=== PATIENT | female | born 1955 | race Caucasian/White ===

== ENCOUNTER 2016-11-23 12:22 | Emergency (ER) | payer MEDICARE ==
[2016-11-23] MEDS ORDERED: PROVENTIL 2.5 MG/3 ML NEB IH ONE (12:53)
[2016-11-23] MEDS ORDERED: solu-MEDROL 125 MG IV ONE (12:56)
[2016-11-23] MEDS ORDERED: Levofloxacin 500MG/100ML D5W 100 ML IV ONE ×2 (12:56→13:29)
[2016-11-23] MEDS ORDERED: Sodium Chloride 3 ML UD NEBULES IH ONE (12:57)
[2016-11-23] MEDS ORDERED: PROVENTIL Solution 2.5 MG/0.5 ML IH ONE (12:57)
[2016-11-23] MEDS ORDERED: Sodium Chloride 0.9% 1000 ML 1,000 ML IV SCH (13:00)
--- NOTE | 2016-11-23 13:27 | XRAY ---
Indication: Cough and dyspnea. Comparison: March 05, 2014. Portable chest demonstrates stable scattered calcific granulomas and left base discoid atelectasis/scarring. Remaining heart, lungs, and bony thorax normal.
[2016-11-23] MEDS ORDERED: solu-MEDROL 125 MG ONE (13:29)
[2016-11-23] MEDS ORDERED: Sodium Chloride 0.9% 1000 ML 1,000 ML ONE (13:29)
[2016-11-23 13:46] LABS: BASOPHIL % 0.2 % (0.0-0.4); Eosinophil % 2.2 % (0.00-5.0); Granulocytes % 64.3 % (36.0-66.0); Lymphocytes % 26.4 % (24.0-44.0); Mean Cell Volume 90.4 fl (78-100); Mean Corpuscular Hemoglobin 29.8 pg (26-32); Mean Platelet Volume 11.1 fl (6-9.5); Monocytes % 6.9 % (0.0-12.0); Platelet Count 249 K/mm3 (150-450); Red Cell Distribution Width 15.3 % (11.5-14.0); White Blood Count 8.8 K/mm3 (4.0-10.5)
[2016-11-23 14:16] LABS: ANION GAP 14.5 MEQ/L (5-15); BLOOD UREA NITROGEN 24 mg/dL (9-20); CHLORIDE 105 mEq/L (98-107); Carbon Dioxide 25.3 mEq/L (21-32); Glucose 112 MG/DL (70-110); MAGNESIUM 2.1 mg/dL (1.8-2.4); Potassium 3.2 mEq/L (3.5-5.1); SODIUM 142 mEq/L (136-145)
[2016-11-23 14:25] LABS: TROPONIN < 0.017 ng/ml (0.000-0.056)
--- NOTE | 2016-11-23 15:38 | ERPHSYRPT ---
- History of Present Illness Time Seen by Provider: 11/23/16 13:30 Source: patient Exam Limitations: clinical condition Patient Subjective Stated Complaint: PT REPORTS SUBSTERNAL CHEST PAIN-SOB BEGINNING ANDRES 1 HR AGO-REPORTS LIGHTHEADEDNESS-DENIES N/V/D-REPORTS SIMILAR EPISODES-REPORTS RECENT PRODUCTIVE COUGH SPUTUM BETWEEN YELLOW ET WHITE Triage Nursing Assessment: PT PINK WARM ET [id number] TALKATIVE WITH RESP NONLABORED-SPEAKING IN BACK TO BACK COMPLETE SENTENCES WITH NO RETRACTIONS-NO COUGH NOTED DURING TRIAGE-RADIAL PULSE REGULAR Physician History: PATIENT COMPLAINS OF PRODUCTIVE COUGH, SUBSTERNAL CHEST TIGHTNESS 2-3 HOURS PRIOR TO ARRIVAL. DENIES FEVER OR CHILLS. HAS PAIN UPON INSPIRATION OR MOTION OF TORSO. Timing/Duration: today Severity of Dyspnea-Max: moderate Severity of Dyspnea-Current: moderate Possible Cause: occasional episodes Modifying Factors: Improves With: coughing Associated Symptoms: cough, wheezing, dizziness, productive cough, tightness International travel in last 2 weeks: No Allergies/Adverse Reactions: codeine Allergy (Intermediate, Verified 11/23/16 12:37) rash, itching cefaclor [From Ceclor] Allergy (Mild, Verified 11/23/16 12:37) Rash Penicillins Allergy (Mild, Verified 11/23/16 12:37) Swelling bacitracin [From Neosporin ([id number])] Allergy (Verified 11/23/16 12:37) bacitracin zinc [From Neosporin ([id number])] Allergy (Verified 11/23/16 12: 37) neomycin sulfate [From Neosporin ([id number])] Allergy (Verified 11/23/16 12: 37) polymyxin B [From Neosporin ([id number])] Allergy (Verified 11/23/16 12:37) Home Medications: Bupropion HCl 150 mg Sr [Wellbutrin SR 150 MG] 150 mg PO BID 03/05/14 [ History] Ropinirole HCl [Requip] 1 mg PO TID 03/05/14 [History] Alprazolam 0.25 mg [xanAX 0.25 MG] 0.25 mg PO TID 11/23/16 [History] Diclofenac Sodium 50 mg [Voltaren 50 mg] 50 mg PO BID 11/23/16 [History] Famotidine [Pepcid] 40 mg PO HS 11/23/16 [History] Hydrochlorothiazide 25 mg [hydroDIURIL 25 MG] 25 mg PO DAILY 11/23/16 [ History] Mirtazapine [Remeron] 15 mg PO HS 11/23/16 [History] Naproxen [Naprosyn] 500 mg PO BID 11/23/16 [History] Zolpidem Tartrate [Ambien] 5 mg PO HS 11/23/16 [History] Hx Tetanus, Diphtheria Vaccination/Date Given: No Hx Influenza Vaccination/Date Given: No Hx Pneumococcal Vaccination/Date Given: No Immunizations Up to Date: Yes - Review of Systems Constitutional: No Symptoms, No Fever, No Chills Eyes: No Symptoms Ears, Nose, & Throat: No Symptoms Respiratory: Cough, Dyspnea Cardiac: Chest Pain, No Edema, No Syncope Abdominal/Gastrointestinal: No Symptoms, No Abdominal Pain, No Nausea, No Vomiting, No Diarrhea Genitourinary Symptoms: No Symptoms, No Dysuria Musculoskeletal: No Symptoms, No Back Pain, No Neck Pain Skin: No Symptoms, No Rash Neurological: No Dizziness, No Focal Weakness, No Sensory Changes Psychological: No Symptoms Endocrine: No Symptoms All Other Systems: Reviewed and Negative - Past Medical History Pertinent Past Medical History: Yes Neurological History: No Pertinent History ENT History: No Pertinent History Cardiac History: No Pertinent History Respiratory History: COPD, Emphysema Endocrine Medical History: No Pertinent History Musculoskeletal History: Arthritis, Fibromyalgia GI Medical History: No Pertinent History History: No Pertinent History Psycho-Social History: No Pertinent History Female Reproductive Disorders: No Pertinent History - Past Surgical History Past Surgical History: Yes Neuro Surgical History: No Pertinent History Cardiac: No Pertinent History Respiratory: No Pertinent History Gastrointestinal: Cholecystectomy Genitourinary: No Pertinent History Musculoskeletal: No Pertinent History Female Surgical History: No Pertinent History, Tubal Ligation - Social History Smoking Status: Current every day smoker How long have you smoked: YRS Exposure to second hand smoke: Yes Drug Use: none Patient Lives Alone: No - Nursing Vital Signs Nursing Vital Signs: Initial Vital Signs Temperature 98.3 F Temperature Source Oral Pulse Rate 101 Respiratory Rate 16 Blood Pressure [Right Arm] 142/57 Pain Intensity 8 - Physical Exam General Appearance: no apparent distress, alert, other (NO DISTRESS, NO AUDIBLE WHEEZES) Eye Exam: PERRL/EOMI Ears, Nose, Throat Exam: hearing grossly normal Neck Exam: normal inspection, supple Respiratory Exam: chest tenderness, diminished breath sounds, wheezing Cardiovascular/Chest Exam: normal heart sounds, regular rate/rhythm Abdominal/Gastrointestinal Exam: soft, normal bowel sounds, No tenderness, No distention, No mass Extremity Exam: non-tender, normal range of motion, normal inspection, no calf tenderness, no pedal edema Peripheral Pulses Exam: carotid (R): 2+, carotid (L): 2+, femoral (R): 2+, femoral (L): 2+, dorsalis-pedis (R): 2+, dorsalis-pedis (L): 2+ Neurologic Exam: alert, 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, cooperative, spinning frame tender II-XII nml as tested, sensation nml, No motor deficits Skin Exam: normal color, warm, No dry SpO2 Interpretation: normal SpO2: 92 Oxygen Delivery: Room Air - Radiology Exams Chest X-ray Interpretation: Interpreted by me, Negative Ordered Tests: Active Orders 24 hr Category Date Time Status Linux Programmer STAT Care 11/23/16 12:53 Active EKG-ER Only STAT Care 11/23/16 12:53 Active IV Insertion STAT Care 11/23/16 12:53 Active Oxygen-ED Only NASAL CANNULA 2 lpm Care 11/23/16 12:53 Active CHEST 1 VIEW (PORTABLE) Stat Exams 11/23/16 12:54 Completed BLOOD CULTURE Stat Lab 11/23/16 13:24 Received BMP Stat Lab 11/23/16 13:35 Completed CBC W DIFF Stat Lab 11/23/16 13:35 Completed CULTURE,SPUTUM Stat Lab 11/23/16 15:26 Received MAGNESIUM Stat Lab 11/23/16 13:35 Completed TROPONIN Stat Lab 11/23/16 13:35 Completed Respiratory Nebulizer STAT RT 11/23/16 12:55 Completed Medication Summary Generic Name Dose Route Start Last Admin Trade Name Freq PRN Reason Stop Dose Admin Sodium Chloride 1,000 mls @ 500 mls/hr 11/23/16 13:00 11/23/16 13:33 Sodium Chloride 0.9% 1000 Ml IV 12/23/16 12:59 500 mls/hr .Q2H FABRICIO Administration Discontinued Medications Generic Name Dose Route Start Last Admin Trade Name Freq PRN Reason Stop Dose Admin Albuterol Sulfate 10 mg 11/23/16 12:53 11/23/16 13:05 Proventil 2.5 Mg/3 Ml Neb IH 11/23/16 12:54 10 mg STAT ONE Administration Albuterol Sulfate Confirm 11/23/16 12:57 Proventil Solution 2.5 Mg/0.5 Ml Administered 11/23/16 12:58 Dose 10 mg IH .STK-MED ONE Levofloxacin/Dextrose 100 mls @ 100 mls/hr 11/23/16 12:56 11/23/16 13:33 Levofloxacin 500mg/100ml D5w IV 11/23/16 13:55 100 mls/hr STAT ONE Administration Sodium Chloride Confirm 11/23/16 13:29 Sodium Chloride 0.9% 1000 Ml Administered 11/23/16 13:30 Dose 1,000 mls @ ud .ROUTE .STK-MED ONE Levofloxacin/Dextrose Confirm 11/23/16 13:29 Levofloxacin 500mg/100ml D5w Administered 11/23/16 13:30 Dose 100 mls @ ud IV .STK-MED ONE Methylprednisolone Sodium Succinate 125 mg 11/23/16 12:56 11/23/16 13:32 Solu-Medrol 125 Mg IV 11/23/16 12:57 125 mg STAT ONE Administration Methylprednisolone Sodium Succinate Confirm 11/23/16 13:29 Solu-Medrol 125 Mg Administered 11/23/16 13:30 Dose 125 mg .ROUTE .STK-MED ONE Sodium Chloride Confirm 11/23/16 12:57 Sodium Chloride 3 Ml Ud Nebules Administered 11/23/16 12:58 Dose 3 ml IH .STK-MED ONE Lab/Rad Data: Laboratory Result Diagrams 11/23/16 13:35 11/23/16 13:35 Laboratory Results 11/23/16 11/23/16 11/23/16 Range/Units 13:35 13:35 13:35 WBC 8.8 (4.0-10.5) K/mm3 RBC 5.40 (4.1-5.4) M/mm3 Hgb 16.1 H (12.0-16.0) gm/dl Hct 48.8 H (35-47) % MCV 90.4 (78-100) fl MCH 29.8 (26-32) pg MCHC 33.0 (32-36) g/dl RDW 15.3 H (11.5-14.0) % Plt Count 249 (150-450) K/mm3 MPV 11.1 H (6-9.5) fl Gran % 64.3 (36.0-66.0) % Lymphocytes % 26.4 (24.0-44.0) % Monocytes % 6.9 (0.0-12.0) % Eosinophils % 2.2 (0.00-5.0) % Basophils % 0.2 (0.0-0.4) % Basophils # 0.02 (0-0.4) Sodium 142 (136-145) mEq/L Potassium 3.2 L (3.5-5.1) mEq/L Chloride 105 (98-107) mEq/L Carbon Dioxide 25.3 (21-32) mEq/L Anion Gap 14.5 (5-15) MEQ/L BUN 24 H (9-20) mg/dL Creatinine 1.02 (0.55-1.30) mg/dl Estimated GFR 59 ML/MIN Glucose 112 H (70-110) MG/DL Calcium 9.2 (8.5-10.1) mg/dL Magnesium 2.1 (1.8-2.4) mg/dL Troponin I < 0.017 (0.000-0.056) ng/ml Influenza Type A Ag NEGATIVE (NEGATIVE) Influenza Type B Ag NEGATIVE (NEGATIVE) RSV (PCR) NEGATIVE (Negative) - Progress Progress: improved Progress Note: 11/23/16 15:37 PATIENT GIVEN CONTINUOUS ALBUTEROL NEBULIZER 10MG OVER 1 HOUR, LEVAQUIN 500MG IVPB, SOLUMEDROL 125MG IV Blood Culture(s) Obtained: Yes Antibiotics given: Yes (LEVAQUIN 500 MG IVPB) Counseled pt/family regarding: lab results, diagnosis, need for follow-up, rad results - Departure Time of Disposition: 15:50 Departure Disposition: Home Clinical Impression: ACUTE EXACERBATION COPD Condition: Stable Critical Care Time: No Additional Instructions: ANTIBIOTIC LEVAQUIN 500MG DAILY FOR 10 DAYS. PREDNISONE 20MG, 2 TABLETS DAILY FOR 5 DAYS. CONTINUE ALBUTEROL AEROSOL TREATMENTS EVERY 3-4 HOURS NEEDED. FOLLOWUP WITH YOUR FAMILY PHYSICIAN IN 1 WEEK. Prescriptions: Levofloxacin [Levaquin] 500 mg PO DAILY #10 tablet Prednisone 20 mg [Deltasone 20 mg] 2 tab PO DAILY #10 tablet
[2016-11-23 16:05] VITALS: BP 117/61; PULSE 87; O2SAT 95
== END 2016-11-23 16:10 | disposition home or self-care (01) ==
LOC: ED 12:22
DX: J44.1 Chronic obstructive pulmonary disease with (acute) exacerbation (principal); R07.89 Other chest pain; R42 Dizziness and giddiness; R05 Cough; Z79.899 Other long term (current) drug therapy
CPT/HCPCS: 36000; 36415; 71010; 80048; 83735; 84484; 85025; 87040; 87070; 87631; 93005; 93041; 94640; 96360; 96361; 96365; 96374; 99285; J1956; J2930

== ENCOUNTER 2018-04-29 22:44 | Emergency (ER) | payer MEDICARE ==
[2018-04-29] MEDS ORDERED: DUONEB 0.5-3 MG/3 ml Neb IH ONE ×2 (23:22→23:29)
[2018-04-29] MEDS ORDERED: Levofloxacin 500MG/100ML D5W 500 MG/100 ML BAG IV STA (23:22)
[2018-04-29] MEDS ORDERED: solu-MEDROL 125 MG IV ONE (23:22)
[2018-04-29] MEDS ORDERED: TORAdol 30 mg Injection IV ONE (23:25)
[2018-04-29] MEDS ORDERED: Sodium Chloride 0.9% 1000 ML 1,000 ML IV SCH (23:30)
--- NOTE | 2018-04-29 23:31 | ERPHSYRPT ---
- History of Present Illness Time Seen by Provider: 04/29/18 23:10 Source: patient Exam Limitations: clinical condition Patient Subjective Stated Complaint: pain over entire body Triage Nursing Assessment: Pt c/o of generalized pain all over, hx of fibromyalgia, rates pain 10/10, face is flushed, tachycardic, BP 146/75, hands are shaky, pulses strong, pt appears uncomfortable Physician History: PATIENT WITH A HISTORY OF COPD, FIBROMYALGIA, AND DEGENERATIVE ARTHRITIS COMPLAINS OF GENERALIZED PAIN ALL OVER, ASSOCIATED WITH A PRODUCTIVE COUGH WHITE SPUTUM. DENIES FEVER, CHEST PAIN OR DYSPNEA. Timing/Duration: day(s) Severity: moderate Modifying Factors: Improves With: movement Associated Symptoms: other (PRODUCTIVE COUGH) Allergies/Adverse Reactions: codeine Allergy (Intermediate, Verified 04/29/18 23:07) rash, itching cefaclor [From Ceclor] Allergy (Mild, Verified 04/29/18 23:07) Rash Penicillins Allergy (Mild, Verified 04/29/18 23:07) Swelling bacitracin [From Neosporin ([id number])] Allergy (Verified 04/29/18 23:07) bacitracin zinc [From Neosporin ([id number]-enl-[id number])] Allergy (Verified 04/29/18 23: 07) neomycin sulfate [From Neosporin ([id number])] Allergy (Verified 04/29/18 23: 07) polymyxin B [From Neosporin ([id number])] Allergy (Verified 04/29/18 23:07) Home Medications: Bupropion HCl 150 mg Sr [Wellbutrin SR 150 MG] 150 mg PO BID 03/05/14 [ History] Ropinirole HCl [Requip] 1 mg PO TID 03/05/14 [History] Alprazolam 0.25 mg [xanAX 0.25 MG] 0.25 mg PO TID 11/23/16 [History] Famotidine [Pepcid] 40 mg PO HS 11/23/16 [History] Mirtazapine [Remeron] 15 mg PO HS 11/23/16 [History] Naproxen [Naprosyn] 500 mg PO BID 11/23/16 [History] Zolpidem Tartrate [Ambien] 5 mg PO HS 11/23/16 [History] Budesonide/Formoterol Fumarate [Symbicort 160-4.5 Mcg Inhaler] 1 inh PO UD 04/29 [History] Tiotropium [place] [Spiriva Respimat] 1 inh PO UD 04/29/18 [History] Hx Tetanus, Diphtheria Vaccination/Date Given: No Hx Influenza Vaccination/Date Given: No Hx Pneumococcal Vaccination/Date Given: No - Review of Systems Constitutional: No Fever, No Chills Eyes: No Symptoms Ears, Nose, & Throat: No Symptoms Respiratory: Cough, No Dyspnea Cardiac: No Symptoms, No Chest Pain, No Edema, No Syncope Abdominal/Gastrointestinal: No Symptoms, No Abdominal Pain, No Nausea, No Vomiting, No Diarrhea Genitourinary Symptoms: No Symptoms, No Dysuria Musculoskeletal: No Back Pain, No Neck Pain Skin: No Rash Neurological: No Dizziness, No Focal Weakness, No Sensory Changes Psychological: No Symptoms Endocrine: No Symptoms All Other Systems: Reviewed and Negative - Past Medical History Pertinent Past Medical History: Yes Neurological History: No Pertinent History ENT History: No Pertinent History Cardiac History: No Pertinent History Respiratory History: COPD, Emphysema Endocrine Medical History: No Pertinent History Musculoskeletal History: Arthritis, Fibromyalgia GI Medical History: No Pertinent History History: No Pertinent History Psycho-Social History: No Pertinent History Female Reproductive Disorders: No Pertinent History - Past Surgical History Past Surgical History: Yes Neuro Surgical History: No Pertinent History Cardiac: No Pertinent History Respiratory: No Pertinent History Gastrointestinal: Cholecystectomy Genitourinary: No Pertinent History Musculoskeletal: No Pertinent History Female Surgical History: No Pertinent History, Tubal Ligation - Social History Smoking Status: Current every day smoker How long have you smoked: YRS Exposure to second hand smoke: Yes Drug Use: none Patient Lives Alone: No - Female History Hx Now: No - Nursing Vital Signs Nursing Vital Signs: Initial Vital Signs Temperature 98.4 F 04/29/18 22:54 Pulse Rate 107 H 04/29/18 22:54 Blood Pressure 146/75 04/29/18 22:54 O2 Sat by Pulse Oximetry 93 L 04/29/18 22:54 Pain Scale Pain Intensity 10 - Physical Exam General Appearance: no apparent distress, alert Eye Exam: PERRL/EOMI, eyes nml inspection Ears, Nose, Throat Exam: normal ENT inspection, TMs normal, pharynx normal, moist mucous membranes Neck Exam: normal inspection, non-tender, supple, full range of motion Respiratory Exam: diminished breath sounds (NO WHEEZES OR RHONCHI), No respiratory distress Cardiovascular Exam: regular rate/rhythm, normal heart sounds, normal peripheral pulses Gastrointestinal/Abdomen Exam: soft, normal bowel sounds, No tenderness, No mass Back Exam: normal inspection, normal range of motion, No CVA tenderness, No vertebral tenderness Extremity Exam: normal inspection, normal range of motion, pelvis stable Neurologic Exam: alert, 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, cooperative, normal mood/affect, nml cerebellar function, nml station & gait, sensation nml, No motor deficits Skin Exam: normal color, warm, dry, No rash Lymphatic Exam: No adenopathy SpO2 Interpretation: borderline oxygenation SpO2: 93 Oxygen Delivery: Room Air Ordered Tests: Active Orders 24 hr Category Date Time Status Clean Catch Urine Specimen STAT Care 04/29/18 23:22 Active IV Insertion STAT Care 04/29/18 23:22 Active CHEST 2 VIEWS (PA AND LAT) Stat Exams 04/29/18 23:23 Taken UA W/RFX UR CULTURE Stat Lab 04/29/18 23:23 Uncollected Peak Expiratory Flow Rate ONCE RT 04/29/18 23:27 Active Respiratory Nebulizer STAT RT 04/29/18 23:24 Completed Respiratory Therapy Assessment DAILY RT 04/29/18 23:27 Active Medication Summary Generic Name Dose Route Start Last Admin Trade Name Freq PRN Reason Stop Dose Admin Sodium Chloride 1,000 mls @ 250 mls/hr 04/29/18 23:30 04/29/18 23:40 Sodium Chloride 0.9% 1000 Ml IV 05/29/18 23:29 250 mls/hr .Q4H FABRICIO Administration Discontinued Medications Generic Name Dose Route Start Last Admin Trade Name Freq PRN Reason Stop Dose Admin Albuterol/Ipratropium 3 ml 04/29/18 23:22 04/29/18 23:36 Duoneb 0.5-3 Mg/3 Ml Neb IH 04/29/18 23:23 3 ml STAT ONE Administration Albuterol/Ipratropium Confirm 04/29/18 23:29 Duoneb 0.5-3 Mg/3 Ml Neb Administered 04/29/18 23:30 Dose 3 ml IH .STK-MED ONE Levofloxacin/Dextrose 500 mg in 100 mls @ 100 mls/hr 04/29/18 23:22 04/29/18 23:40 Levofloxacin 500mg/100ml D5w IV 04/30/18 00:21 100 mls/hr STAT STA Administration Levofloxacin/Dextrose Confirm 04/29/18 23:36 Levofloxacin 500mg/100ml D5w Administered 04/29/18 23:37 Dose 500 mg in 100 mls @ ud IV .STK-MED ONE Ketorolac Tromethamine 30 mg 04/29/18 23:25 04/29/18 23:42 Toradol 30 Mg Injection IV 04/29/18 23:26 30 mg STAT ONE Administration Ketorolac Tromethamine Confirm 04/29/18 23:35 Toradol 30 Mg Injection Administered 04/29/18 23:36 Dose 30 mg .ROUTE .STK-MED ONE Methylprednisolone Sodium Succinate 125 mg 04/29/18 23:22 04/29/18 23:42 Solu-Medrol 125 Mg IV 04/29/18 23:23 125 mg STAT ONE Administration Methylprednisolone Sodium Succinate Confirm 04/29/18 23:35 Solu-Medrol 125 Mg Administered 04/29/18 23:36 Dose 125 mg .ROUTE .STK-MED ONE - Progress Progress: improved Progress Note: 04/29/18 23:30 ADMINISTERED IV NORMAL SALINE 250ML/HR, SOLUMEDROL 125MG, TORADOL 30MG, LEVAQUIN 500MG IVPB, ZOFRAN 4MG. DILAUDID 1MG IV 04/29/18 23:31 Counseled pt/family regarding: lab results, diagnosis, need for follow-up, rad results - Departure Time of Disposition: 01:00 Departure Disposition: Home Clinical Impression: ACUTE EXACERBATION COPD, CHRONIC PAIN SYNDROME Condition: Stable Critical Care Time: No Referrals: ARSH LINDER MD [Primary Care Provider] - Additional Instructions: ANTIBIOTIC LEVAQUIN 500MG DAILY FOR 10 DAYS. CONTINUE PREDNISONE 40MG DAILY FOR 5 DAYS. CONSULT YOUR PRIMARY CARE PROVIDER FOR FOLLOWUP IN 1 WEEK. TORADOL 10 MG EVERY 6 HOURS NEEDED FOR PAIN. Prescriptions: Ketorolac Tromethamine [Toradol] 10 mg PO Q6H PRN PRN #20 tablet PRN Reason: Pain Levofloxacin [Levaquin] 500 mg PO DAILY #10 tablet
[2018-04-29] MEDS ORDERED: TORAdol 30 mg Injection ONE (23:35)
[2018-04-29] MEDS ORDERED: solu-MEDROL 125 MG ONE (23:35)
[2018-04-29] MEDS ORDERED: Sodium Chloride 0.9% 1000 ML 1,000 ML ONE (23:35)
[2018-04-29] MEDS ORDERED: Levofloxacin 500MG/100ML D5W 500 MG/100 ML BAG IV ONE (23:36)
[2018-04-29 23:55] VITALS: O2SAT 93
[2018-04-30 00:59] VITALS: BP 117/62; PULSE 88
--- NOTE | 2018-04-30 12:17 | XRAY ---
Indication: Productive cough and weakness. Comparison: November 23, 2016. Portable AP/lateral chest now demonstrates subtle right infrahilar infiltrate versus atelectasis. Stable left base discoid atelectasis/scarring and a few calcific granulomas. Remaining heart and lungs unremarkable. Bony thorax intact with minimal degenerative changes.
== END 2018-04-30 01:12 | disposition home or self-care (01) ==
LOC: ED 22:44
DX: J44.1 Chronic obstructive pulmonary disease with (acute) exacerbation (principal); G89.4 Chronic pain syndrome; Z79.899 Other long term (current) drug therapy
CPT/HCPCS: 36000; 71046; 94150; 94640; 96360; 96365; 96374; 96375; 99284; J1885; J1956; J2930; A9270-GY

== ENCOUNTER 2018-11-25 00:46 | Emergency (ER) | payer MEDICARE ==
[2018-11-25 01:13] VITALS: BP 175/78; PULSE 106; O2SAT 96
[2018-11-25] MEDS ORDERED: Diflucan 100 MG ONE (02:42)
[2018-11-25] MEDS ORDERED: Macrobid 100MG Capsule ONE (02:55)
[2018-11-25 11:35] LABS: CHLAMYDIA URINE NEGATIVE (NEGATIVE); GC URINE NEGATIVE (NEGATIVE)
[2018-11-25 11:36] LABS: Appearance CLEAR (CLEAR); Bacteria Rare; Clue Cells None Seen; Red Blood Cells None Seen; Trichomonas None Seen; White Blood Cells None Seen; Yeast None Seen
[2018-11-25 11:37] LABS: Leukocyte Esterase TRACE (NEGATIVE); Nitrite NEGATIVE (NEGATIVE); Specific Gravity 1.019 (1.005-1.025)
[2018-11-25 11:38] LABS: Bilirubin NEGATIVE (NEGATIVE); Blood NEGATIVE Ery/ul (0-5); Glucose NEGATIVE (NEGATIVE); Ketones NEGATIVE (NEGATIVE); Mucus SLIGHT /HPF (NEGATIVE); Protein,Urine Dip 100 (Negative); RBC NONE SEEN /HPF (0-2); Urobilinogen NORMAL mg/dL (0-1)
== END 2018-11-25 03:10 | disposition home or self-care (01) ==
LOC: ED 00:46
DX: N76.0 Acute vaginitis (principal)
CPT/HCPCS: 81001; 87210; 87491; 87591; 99283; A9270-GY

== ENCOUNTER 2018-11-29 15:58 | Observation (INO) | payer MEDICARE ==
[2018-11-29] MEDS ORDERED: DUONEB 0.5-3 MG/3 ml Neb IH ONE ×4 (16:09→22:52)
[2018-11-29] MEDS ORDERED: solu-MEDROL 125 MG IV ONE (16:20)
--- NOTE | 2018-11-29 16:20 | ERPHSYRPT ---
- History of Present Illness Time Seen by Provider: 11/29/18 16:10 Source: patient Exam Limitations: no limitations Physician History: 63 y/o white female presents with worsening cough and soa over 2 days. pt has sig h/o copd. pt is not oxygen dependent. denies abd pain, has cp with cough. Timing/Duration: day(s) (2), worse Severity of Dyspnea-Max: moderate Severity of Dyspnea-Current: moderate Possible Cause: occasional episodes Modifying Factors: Improves With: activity, coughing Associated Symptoms: anxiety, cough, chest pain/discomfort (with cough), wheezing Allergies/Adverse Reactions: codeine Allergy (Intermediate, Verified 11/29/18 16:04) rash, itching cefaclor [From Ceclor] Allergy (Mild, Verified 11/29/18 16:04) Rash Penicillins Allergy (Mild, Verified 11/29/18 16:04) Swelling bacitracin [From Neosporin ([id number])] Allergy (Verified 11/29/18 16:04) bacitracin zinc [From Neosporin ([id number])] Allergy (Verified 11/29/18 16: 04) neomycin sulfate [From Neosporin ([id number])] Allergy (Verified 11/29/18 16: 04) polymyxin B [From Neosporin ([id number])] Allergy (Verified 11/29/18 16:04) Home Medications: Bupropion HCl 150 mg Sr [Wellbutrin SR 150 MG] 150 mg PO BID 03/05/14 [ History] Ropinirole HCl [Requip] 1 mg PO TID 03/05/14 [History] Alprazolam 0.25 mg [xanAX 0.25 MG] 0.25 mg PO TID 11/23/16 [History] Famotidine [Pepcid] 40 mg PO HS 11/23/16 [History] Mirtazapine [Remeron] 15 mg PO HS 11/23/16 [History] Naproxen [Naprosyn] 500 mg PO BID 11/23/16 [History] Zolpidem Tartrate [Ambien] 5 mg PO HS 11/23/16 [History] Budesonide/Formoterol Fumarate [Symbicort 160-4.5 Mcg Inhaler] 1 inh PO UD 08/24 /18 [History] Tiotropium Dawson [Spiriva Respimat] 1 inh PO UD 04/29/18 [History] Hx Tetanus, Diphtheria Vaccination/Date Given: No Hx Influenza Vaccination/Date Given: No Hx Pneumococcal Vaccination/Date Given: No - Review of Systems Constitutional: No Symptoms, No Fever, No Chills Eyes: No Symptoms Ears, Nose, & Throat: No Symptoms Respiratory: Cough, Dyspnea, Wheezing Cardiac: Chest Pain (with cough) Abdominal/Gastrointestinal: No Symptoms Genitourinary Symptoms: No Symptoms Musculoskeletal: No Symptoms Skin: No Symptoms Neurological: No Symptoms Psychological: No Symptoms Endocrine: No Symptoms Hematologic/Lymphatic: No Symptoms Immunological/Allergic: No Symptoms All Other Systems: Reviewed and Negative - Past Medical History Pertinent Past Medical History: Yes Neurological History: No Pertinent History ENT History: No Pertinent History Cardiac History: No Pertinent History Respiratory History: COPD, Emphysema Endocrine Medical History: No Pertinent History Musculoskeletal History: Arthritis, Fibromyalgia GI Medical History: No Pertinent History History: No Pertinent History Psycho-Social History: No Pertinent History Female Reproductive Disorders: No Pertinent History - Past Surgical History Past Surgical History: Yes Neuro Surgical History: No Pertinent History Cardiac: No Pertinent History Respiratory: No Pertinent History Gastrointestinal: Cholecystectomy Genitourinary: No Pertinent History Musculoskeletal: No Pertinent History Female Surgical History: No Pertinent History, Tubal Ligation - Social History Smoking Status: Current every day smoker How long have you smoked: YRS Exposure to second hand smoke: Yes Drug Use: none Patient Lives Alone: No - Nursing Vital Signs Nursing Vital Signs: Initial Vital Signs Temperature 98.9 F 11/29/18 16:15 Pulse Rate 102 H 11/29/18 16:15 Respiratory Rate 26 H 11/29/18 16:15 Blood Pressure 205/93 11/29/18 16:15 O2 Sat by Pulse Oximetry 93 L 11/29/18 16:15 Pain Scale Pain Intensity 3 - Physical Exam General Appearance: mild distress, alert, anxiety Eye Exam: PERRL/EOMI Ears, Nose, Throat Exam: hearing grossly normal, normal ENT inspection Neck Exam: normal inspection, non-tender, supple, full range of motion Respiratory Exam: normal breath sounds, chest tenderness (with cough), respiratory distress (mild), airway intact, wheezing Cardiovascular/Chest Exam: normal heart sounds, regular rate/rhythm, murmur Abdominal/Gastrointestinal Exam: soft, normal bowel sounds, No tenderness Rectal Exam: not done Extremity Exam: non-tender, normal range of motion, normal inspection Neurologic Exam: alert, 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, cooperative, manager brand II-XII nml as tested Skin Exam: normal color, warm, dry Lymphatic Exam: No adenopathy SpO2 Interpretation: borderline oxygenation SpO2: 93 O2 Delivery: Nasal Cannula (2 liters) - Course Nursing assessment & vital signs reviewed: Yes EKG Interpreted by Me: RATE (103), Sinus Rhythm, Sinus Tach, Non-specific ST Changes, Other (no sig changes compared to ekg dated 11/23/16) Ordered Tests: Active Orders 24 hr Category Date Time Status Clerk Of Works STAT Care 11/29/18 16:21 Active EKG-ER Only STAT Care 11/29/18 16:20 Active IV Insertion STAT Care 11/29/18 16:20 Active Oxygen-ED Only Nasal Cannula 2 lpm Care 11/29/18 16:20 Active Pulse Oximetry (ED) STAT Care 11/29/18 16:20 Active CHEST 1 VIEW (PORTABLE) Stat Exams 11/29/18 16:20 Completed CBC W DIFF Stat Lab 11/29/18 16:50 Completed CMP Stat Lab 11/29/18 16:50 Completed D-DIMER QUANTITATION Stat Lab 11/29/18 16:50 Completed Lactic Acid Stat Lab 11/29/18 16:52 Completed NT PRO BNP Stat Lab 11/29/18 16:50 Completed TROPONIN Q3H Lab 11/29/18 16:50 Received TROPONIN Q3H Lab 11/29/18 19:30 Ordered TROPONIN Q3H Lab 11/29/18 22:30 Ordered TROPONIN Q3H Lab 11/30/18 01:30 Ordered TROPONIN Q3H Lab 11/30/18 04:30 Ordered Peak Expiratory Flow Rate ONCE RT 11/29/18 16:15 Active Respiratory Therapy Assessment DAILY RT 11/29/18 16:14 Active Transfer Order Routine Transfer 11/29/18 Ordered Medication Summary Discontinued Medications Generic Name Dose Route Start Last Admin Trade Name Freq PRN Reason Stop Dose Admin Albuterol/Ipratropium Confirm 11/29/18 16:09 Duoneb 0.5-3 Mg/3 Ml Neb Administered 11/29/18 16:10 Dose 3 ml IH .STK-MED ONE Albuterol/Ipratropium 3 ml 11/29/18 16:10 11/29/18 16:11 Duoneb 0.5-3 Mg/3 Ml Neb IH 11/29/18 16:11 3 ml STAT ONE Administration Diphenhydramine HCl 25 mg 11/29/18 17:16 11/29/18 17:24 Benadryl 50 Mg/Ml IV 11/29/18 17:17 25 mg STAT ONE Administration Diphenhydramine HCl Confirm 11/29/18 17:22 Benadryl 50 Mg/Ml Administered 11/29/18 17:23 Dose 50 mg .ROUTE .STK-MED ONE Levofloxacin/Dextrose 750 mg in 150 mls @ 100 mls/hr 11/29/18 17:00 11/29/18 17:04 Levofloxacin 750mg/150ml D5w IV 11/29/18 18:29 100 ml/hr STAT STA 100 mls/hr Administration Levofloxacin/Dextrose Confirm 11/29/18 17:03 Levofloxacin 750mg/150ml D5w Administered 11/29/18 17:04 Dose 750 mg in 150 mls @ ud IV .STK-MED ONE Azithromycin 500 mg in 250 mls @ 250 mls/hr 11/29/18 17:16 11/29/18 17:27 Zithromax 500 Mg/ 250 Ml Nacl Premix IV 11/29/18 18:15 250 mls/hr STAT ONE Administration Azithromycin Confirm 11/29/18 17:22 Zithromax 500 Mg/ 250 Ml Nacl Premix Administered 11/29/18 17:23 Dose 500 mg in 250 mls @ ud IV .STK-MED ONE Methylprednisolone Sodium Succinate 125 mg 11/29/18 16:20 11/29/18 16:28 Solu-Medrol 125 Mg IV 11/29/18 16:21 125 mg STAT ONE Administration Methylprednisolone Sodium Succinate Confirm 11/29/18 16:26 Solu-Medrol 125 Mg Administered 11/29/18 16:27 Dose 125 mg .ROUTE .STK-MED ONE Lab/Rad Data: Laboratory Result Diagrams 11/29/18 16:50 11/29/18 16:50 Laboratory Results 11/29/18 11/29/18 11/29/18 Range/Units 16:52 16:50 16:50 WBC (4.0-10.5) K/mm3 RBC (4.1-5.4) M/mm3 Hgb (12.0-16.0) gm/dl Hct (35-47) % MCV (78-100) fl MCH (26-32) pg MCHC (32-36) g/dl RDW (11.5-14.0) % Plt Count (150-450) K/mm3 MPV (6-9.5) fl Gran % (36.0-66.0) % Eos # (Auto) (0-0.5) Absolute Lymphs (auto) (1.0-4.6) Absolute Monos (auto) (0.0-1.3) Lymphocytes % (24.0-44.0) % Monocytes % (0.0-12.0) % Eosinophils % (0.00-5.0) % Basophils % (0.0-0.4) % Absolute Granulocytes (1.4-6.9) Basophils # (0-0.4) D-Dimer < 215 L (215-500) ng/mL Sodium 142 (137-145) mmol/L Potassium 4.1 (3.5-5.1) mmol/L Chloride 103 (98-107) mmol/L Carbon Dioxide 30 (22-30) mmol/L Anion Gap 13.9 (5-15) MEQ/L BUN 12 (7-17) mg/dL Creatinine 0.66 (0.52-1.04) mg/dL Estimated GFR > 60.0 ML/MIN Glucose 102 (74-106) mg/dL Lactic Acid 1.2 (0.4-2.0) Calcium 9.7 (8.4-10.2) mg/dL Total Bilirubin 0.50 (0.2-1.3) mg/dL AST 25 (14-36) U/L ALT 37 H (0-35) U/L Alkaline Phosphatase 78 (38-126) U/L NT-Pro-B Natriuret Pep 64.6 (0-900) pg/mL Serum Total Protein 7.1 (6.3-8.2) g/dL Albumin 3.9 (3.5-5.0) g/dL 11/29/18 Range/Units 16:50 WBC 10.7 H (4.0-10.5) K/mm3 RBC 4.70 (4.1-5.4) M/mm3 Hgb 13.7 (12.0-16.0) gm/dl Hct 43.5 (35-47) % MCV 92.6 (78-100) fl MCH 29.1 (26-32) pg MCHC 31.5 L (32-36) g/dl RDW 15.6 H (11.5-14.0) % Plt Count 217 (150-450) K/mm3 MPV 10.8 H (6-9.5) fl Gran % 65.5 (36.0-66.0) % Eos # (Auto) 0.92 H (0-0.5) Absolute Lymphs (auto) 1.88 (1.0-4.6) Absolute Monos (auto) 0.86 (0.0-1.3) Lymphocytes % 17.6 L (24.0-44.0) % Monocytes % 8.1 (0.0-12.0) % Eosinophils % 8.6 H (0.00-5.0) % Basophils % 0.2 (0.0-0.4) % Absolute Granulocytes 6.99 H (1.4-6.9) Basophils # 0.02 (0-0.4) D-Dimer (215-500) ng/mL Sodium (137-145) mmol/L Potassium (3.5-5.1) mmol/L Chloride (98-107) mmol/L Carbon Dioxide (22-30) mmol/L Anion Gap (5-15) MEQ/L BUN (7-17) mg/dL Creatinine (0.52-1.04) mg/dL Estimated GFR ML/MIN Glucose (74-106) mg/dL Lactic Acid (0.4-2.0) Calcium (8.4-10.2) mg/dL Total Bilirubin (0.2-1.3) mg/dL AST (14-36) U/L ALT (0-35) U/L Alkaline Phosphatase (38-126) U/L NT-Pro-B Natriuret Pep (0-900) pg/mL Serum Total Protein (6.3-8.2) g/dL Albumin (3.5-5.0) g/dL - Progress Progress: improved Air Movement: fair Progress Note: 11/29/18 16:40 cxr-subtle right hilar infiltrate. 03/26/19 17:01 11/29/18 17:17 called to eval pt who c/o itching at iv site upon infusion of levaquin iv. no h/ o allergies to this med. stopped the levaquin, to give iv benadryl and will infuse zithromax 11/29/18 17:49 pt states she is feeling better and breathing better. 11/29/18 18:18 took pt off oxygen. rm air o2 sats dropped to 85%. called dr. linder, pts pcp, and reviewed pt with him. he accepts pt to be placed in obs. continue resp tx zithromax antibiotics and steroids Blood Culture(s) Obtained: No Antibiotics given: Yes Counseled pt/family regarding: lab results, diagnosis, need for follow-up, rad results - Departure Time of Disposition: 18:20 Departure Disposition: Observation Clinical Impression: Right pulmonary infiltrate on CXR, Hypoxia Condition: Stable Critical Care Time: No Referrals: ARSH LINDER MD [Primary Care Provider] - Additional Instructions: continue albuterol nebulizer treatments every 4 hours while awake. return to ED if symptoms worsen. Prescriptions: Azithromycin 250 mg [Zithromax 250 MG TABLET] 250 mg PO ZPACK #6 tablet Prednisone 5 mg [Deltasone 5 mg] 5 mg PO TID #12 tablet
[2018-11-29] MEDS ORDERED: solu-MEDROL 125 MG ONE (16:26)
--- NOTE | 2018-11-29 16:39 | XRAY ---
Indication: Cough. Short of breath. Comparison: April 29, 2018. Portable chest again demonstrates subtle right infrahilar infiltrate versus atelectasis and left base discoid atelectasis/scarring. Remaining heart, lungs, and bony thorax unremarkable.
[2018-11-29] MEDS ORDERED: LEVOFLOXACIN 750MG/150ML D5W 750 MG/150 ML BAG IV STA (17:00)
[2018-11-29 17:01] LABS: BASOPHIL % 0.2 % (0.0-0.4); Basophil (Absolute #) 0.02 (0-0.4); Eosinophil % 8.6 % (0.00-5.0); Eosinophil (Absolute #) 0.92 (0-0.5); Granulocyte Absolute (ANC) 6.99 (1.4-6.9); Granulocytes % 65.5 % (36.0-66.0); Hematocrit 43.5 % (35-47); Hemoglobin 13.7 gm/dl (12.0-16.0); Lymphocyte (Absolute #) 1.88 (1.0-4.6); Lymphocytes % 17.6 % (24.0-44.0); Mean Cell Volume 92.6 fl (78-100); Mean Corpuscular Hemoglobin 29.1 pg (26-32); Mean Corpuscular Hgb Concent. 31.5 g/dl (32-36); Mean Platelet Volume 10.8 fl (6-9.5); Monocyte (Absolute #) 0.86 (0.0-1.3); Monocytes % 8.1 % (0.0-12.0); Platelet Count 217 K/mm3 (150-450); Red Cell Distribution Width 15.6 % (11.5-14.0); White Blood Count 10.7 K/mm3 (4.0-10.5)
[2018-11-29] MEDS ORDERED: LEVOFLOXACIN 750MG/150ML D5W 750 MG/150 ML BAG IV ONE (17:03)
[2018-11-29] MEDS ORDERED: Zithromax 500 MG/ 250 ML NaCl Premix 500 MG/250 ML IVPB IV ONE ×2 (17:16→17:22)
[2018-11-29] MEDS ORDERED: BENADRYL 50 MG/ML IV ONE (17:16)
[2018-11-29] MEDS ORDERED: BENADRYL 50 MG/ML ONE (17:22)
[2018-11-29 17:32] LABS: ALBUMIN 3.9 g/dL (3.5-5.0); ALKALINE PHOSPHATASE 78 U/L (38-126); ANION GAP 13.9 MEQ/L (5-15); BLOOD UREA NITROGEN 12 mg/dL (7-17); CHLORIDE 103 mmol/L (98-107); Calcium 9.7 mg/dL (8.4-10.2); Carbon Dioxide 30 mmol/L (22-30); Creatinine 1 0.66 mg/dL (0.52-1.04); Glucose 102 mg/dL (74-106); NT PRO BNP 64.6 pg/mL (0-900); Potassium 4.1 mmol/L (3.5-5.1); SGOT/AST 25 U/L (14-36); SGPT/ALT 37 U/L (0-35); SODIUM 142 mmol/L (137-145); Total Protein 7.1 g/dL (6.3-8.2)
[2018-11-29] MEDS ORDERED: Sodium Chloride 0.9% 1000 ML 1,000 ML IV SCH (19:53)
[2018-11-29] MEDS ORDERED: TYLENOL 325 MG PO PRN (19:53)
[2018-11-29] MEDS ORDERED: Zofran 4 MG/2 ML VIAL IV PRN (19:53)
[2018-11-29] MEDS: DUONEB 0.5-3 MG/3 ml Neb IH SCH ×2 (20:26→23:59)
[2018-11-29] MEDS: Advair Hfa 230/21 Mcg COMMON CANISTER IH SCH (20:39)
[2018-11-29] MEDS ORDERED: Nicoderm CQ 21 MG TOP SCH (21:45)
[2018-11-29] MEDS ORDERED: REMERON 30 MG PO SCH (22:00)
[2018-11-29] MEDS ORDERED: Ambien 5 MG Tablet PO SCH (22:00)
[2018-11-29] MEDS ORDERED: Pepcid 20 MG PO SCH (22:00)
[2018-11-29] MEDS: Requip 0.5 MG PO SCH (23:03)
[2018-11-29] MEDS: Wellbutrin SR 150 MG PO SCH (23:03)
[2018-11-29] MEDS: Naprosyn 500 MG PO SCH (23:03)
[2018-11-30] MEDS ORDERED: DUONEB 0.5-3 MG/3 ml Neb IH ONE (02:48)
[2018-11-30] MEDS: solu-MEDROL 125 MG IV SCH ×2 (02:49→03:14)
[2018-11-30] MEDS: DUONEB 0.5-3 MG/3 ml Neb IH SCH (03:38)
[2018-11-30] MEDS: Advair Hfa 230/21 Mcg COMMON CANISTER IH SCH (07:04)
[2018-11-30] MEDS: PROVENTIL 2.5 MG/3 ML NEB IH SCH ×3 (07:04→15:28)
[2018-11-30] MEDS: Requip 0.5 MG PO SCH (09:55)
[2018-11-30] MEDS: Wellbutrin SR 150 MG PO SCH (09:55)
[2018-11-30] MEDS: Naprosyn 500 MG PO SCH (09:55)
[2018-11-30] MEDS ORDERED: DELTASONE 20 MG PO SCH (10:00)
[2018-11-30] MEDS ORDERED: Zithromax 500 MG/ 250 ML NaCl Premix 500 MG/250 ML IVPB IV SCH (10:00)
[2018-11-30] MEDS ORDERED: Spiriva 18 Mcg/Cap Inhaler IH SCH (10:00)
[2018-11-30 11:50] VITALS: BP 156/68
--- NOTE | 2018-11-30 12:05 | PCM.SSS ---
History of Present Illness - Chief Complaint Chief Complaint: c/o shortness of breath for 2 days History of Present Illness: 63 y/o white female presents with worsening cough and soa over 2 days. pt has sig h/o copd. pt is not oxygen dependent. denies abd pain, has cp with cough. Timing/Duration: day(s) (2), worse Severity of Dyspnea-Max: moderate Severity of Dyspnea-Current: moderate Possible Cause: occasional episodes Modifying Factors: Improves With: activity, coughing Associated Symptoms: anxiety, cough, chest pain/discomfort (with cough), wheezing - Review of Systems Constitutional: No Fever, No Chills Eyes: No Symptoms Ears, Nose, & Throat: No Symptoms Respiratory: Cough, Short Of Breath, Wheezing Cardiac: No Chest Pain, No Edema, No Syncope Abdominal/Gastrointestinal: No Abdominal Pain, No Nausea, No Vomiting, No Diarrhea Genitourinary Symptoms: No Dysuria Musculoskeletal: No Back Pain, No Neck Pain Skin: No Rash Neurological: No Dizziness, No Focal Weakness, No Sensory Changes Psychological: No Symptoms Endocrine: No Symptoms Hematologic/Lymphatic: No Symptoms Immunological/Allergic: No Symptoms Medications & Allergies Home Medications: Home Medication List Bupropion HCl 150 mg Sr [Wellbutrin SR 150 MG] 150 mg PO BID 03/05/14 [ History Confirmed 11/29/18] Ropinirole HCl [Requip] 1 mg PO TID 03/05/14 [History Confirmed 11/29/18] Famotidine [Pepcid] 40 mg PO HS 11/23/16 [History Confirmed 11/29/18] Mirtazapine [Remeron] 15 mg PO HS 11/23/16 [History Confirmed 11/29/18] Naproxen [Naprosyn] 500 mg PO BID 11/23/16 [History Confirmed 11/29/18] Prednisone 20 mg [Deltasone 20 mg] 2 tab PO DAILY #10 tablet 11/23/16 [Rx Confirmed 11/29/18] Zolpidem Tartrate [Ambien] 5 mg PO HS 11/23/16 [History Confirmed 11/29/18] Budesonide/Formoterol Fumarate [Symbicort 160-4.5 Mcg Inhaler] 1 inh PO UD 04/29 [History Confirmed 11/29/18] Tiotropium [place] [Spiriva Respimat] 1 inh PO UD 04/29/18 [History Confirmed ] Azithromycin [Zithromax Tri-Nahid] 500 mg PO DAILY #3 tablet 11/30/18 [Rx] Allergies/Adverse Reactions: Allergies Allergy/AdvReac Type Severity Reaction Status Date / Time codeine Allergy Intermediate rash, Verified 11/29/18 16:04 itching cefaclor [From Ceclor] Allergy Mild Rash Verified 11/29/18 16:04 Penicillins Allergy Mild Swelling Verified 11/29/18 16:04 bacitracin Allergy Verified 11/29/18 16:04 [From Neosporin ([id number])] bacitracin zinc Allergy Verified 11/29/18 16:04 [From Neosporin ([id number])] levofloxacin [From Levaquin] Allergy Verified 11/29/18 20:38 neomycin sulfate Allergy Verified 11/29/18 16:04 [From Neosporin ([id number])] polymyxin B Allergy Verified 11/29/18 16:04 [From Neosporin ([id number])] - Past Medical History Past Medical History: Yes Neurological History: No Pertinent History ENT History: No Pertinent History Cardiac History: No Pertinent History Respiratory History: COPD, Emphysema Endocrine Medical History: No Pertinent History Musculoskelatal History: Arthritis, Fibromyalgia GI Medical History: No Pertinent History History: Other Pyscho-Social History: No Pertinent History Reproductive Disorders: No Pertinent History Comment: leaky bladder - Female History Are you now?: No (tubal) - Past Surgical History Past Surgical History: Yes Neuro Surgical History: No Pertinent History Cardiac History: No Pertinent History Respiratory Surgery: No Pertinent History GI Surgical History: Cholecystectomy Genitourinary Surgical Hx: No Pertinent History Musculskeletal Surgical Hx: No Pertinent History Female Surgical History: No Pertinent History, Tubal Ligation - Social History Smoking Status: Current every day smoker How long have you smoked: YRS Exposure to second hand smoke: Yes Alcohol: None Drug Use: none - Physical Exam Vital Signs: Vital Signs - 24 hr Temp Pulse Resp BP Pulse Ox 11/30/18 11:49 97.8 F 96 H 20 156/68 93 L 11/30/18 11:03 68 24 93 L 11/30/18 08:00 97.7 F 99 H 20 141/63 93 L 11/30/18 07:26 18 L 93 L 11/30/18 04:00 98.4 F 99 H 26 H 151/67 97 11/30/18 03:38 99 H 26 H 97 11/30/18 00:00 98.4 F 110 H 20 178/79 94 L 11/29/18 23:59 110 H 20 94 L 11/29/18 20:47 98.4 F 107 H 20 178/79 94 L 11/29/18 20:26 105 H 23 94 L 11/29/18 20:00 98.8 F 107 H 19 137/64 91 L 11/29/18 19:46 100 H 28 H 190/88 94 L 11/29/18 18:38 93 L 11/29/18 18:25 92 H 26 H 137/76 94 L 11/29/18 17:57 93 H 20 172/70 94 L 11/29/18 17:01 96 H 22 174/74 92 L 11/29/18 16:20 93 L 11/29/18 16:15 98.9 F 109 H 22 205/93 93 L Oxygen-Last 24 hours O2 Percentage 4 Liters = 36% O2 Percentage 4 Liters = 36% O2 Percentage 4 Liters = 36% O2 Percentage 3 Liters = 32% O2 Percentage 4 Liters = 36% O2 Percentage 2 Liters = 28% O2 Percentage 2 Liters = 28% O2 Percentage 3 Liters = 32% O2 Percentage 3 Liters = 32% O2 Percentage 2 Liters = 28% Oxygen Flowrate (L/min)-RT 3 General Appearance: no apparent distress, alert Neurologic Exam: alert, 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, cooperative, normal mood/affect, nml cerebellar function, nml station & gait, sensation nml, No motor deficits Eye Exam: PERRL/EOMI, eyes nml inspection Ears, Nose, Throat Exam: normal ENT inspection, TMs normal, pharynx normal, moist mucous membranes Neck Exam: normal inspection, non-tender, supple, full range of motion Respiratory Exam: normal breath sounds, lungs clear, No respiratory distress Cardiovascular Exam: regular rate/rhythm, normal heart sounds, normal peripheral pulses Gastrointestinal/Abdomen Exam: soft, normal bowel sounds, No tenderness, No mass Back Exam: normal inspection, normal range of motion, No CVA tenderness, No vertebral tenderness Extremity Exam: normal inspection, normal range of motion, pelvis stable Skin Exam: normal color, warm, dry, No rash Lymphatic Exam: No adenopathy Results - Labs Lab/Micro Results: Lab Results-Last 24 Hours 11/29/18 11/29/18 11/29/18 Range/Units 16:50 16:50 16:50 WBC 10.7 H (4.0-10.5) K/mm3 RBC 4.70 (4.1-5.4) M/mm3 Hgb 13.7 (12.0-16.0) gm/dl Hct 43.5 (35-47) % MCV 92.6 (78-100) fl MCH 29.1 (26-32) pg MCHC 31.5 L (32-36) g/dl RDW 15.6 H (11.5-14.0) % Plt Count 217 (150-450) K/mm3 MPV 10.8 H (6-9.5) fl Gran % 65.5 (36.0-66.0) % Eos # (Auto) 0.92 H (0-0.5) Absolute Lymphs (auto) 1.88 (1.0-4.6) Absolute Monos (auto) 0.86 (0.0-1.3) Lymphocytes % 17.6 L (24.0-44.0) % Monocytes % 8.1 (0.0-12.0) % Eosinophils % 8.6 H (0.00-5.0) % Basophils % 0.2 (0.0-0.4) % Absolute Granulocytes 6.99 H (1.4-6.9) Basophils # 0.02 (0-0.4) D-Dimer < 215 L (215-500) ng/mL Sodium 142 (137-145) mmol/L Potassium 4.1 (3.5-5.1) mmol/L Chloride 103 (98-107) mmol/L Carbon Dioxide 30 (22-30) mmol/L Anion Gap 13.9 (5-15) MEQ/L BUN 12 (7-17) mg/dL Creatinine 0.66 (0.52-1.04) mg/dL Estimated GFR > 60.0 ML/MIN Glucose 102 (74-106) mg/dL Lactic Acid (0.4-2.0) Calcium 9.7 (8.4-10.2) mg/dL Total Bilirubin 0.50 (0.2-1.3) mg/dL AST 25 (14-36) U/L ALT 37 H (0-35) U/L Alkaline Phosphatase 78 (38-126) U/L Troponin I (0.000-0.034) ng/mL NT-Pro-B Natriuret Pep 64.6 (0-900) pg/mL Serum Total Protein 7.1 (6.3-8.2) g/dL Albumin 3.9 (3.5-5.0) g/dL 11/29/18 11/29/18 11/29/18 Range/Units 16:50 16:52 19:38 WBC (4.0-10.5) K/mm3 RBC (4.1-5.4) M/mm3 Hgb (12.0-16.0) gm/dl Hct (35-47) % MCV (78-100) fl MCH (26-32) pg MCHC (32-36) g/dl RDW (11.5-14.0) % Plt Count (150-450) K/mm3 MPV (6-9.5) fl Gran % (36.0-66.0) % Eos # (Auto) (0-0.5) Absolute Lymphs (auto) (1.0-4.6) Absolute Monos (auto) (0.0-1.3) Lymphocytes % (24.0-44.0) % Monocytes % (0.0-12.0) % Eosinophils % (0.00-5.0) % Basophils % (0.0-0.4) % Absolute Granulocytes (1.4-6.9) Basophils # (0-0.4) D-Dimer (215-500) ng/mL Sodium (137-145) mmol/L Potassium (3.5-5.1) mmol/L Chloride (98-107) mmol/L Carbon Dioxide (22-30) mmol/L Anion Gap (5-15) MEQ/L BUN (7-17) mg/dL Creatinine (0.52-1.04) mg/dL Estimated GFR ML/MIN Glucose (74-106) mg/dL Lactic Acid 1.2 (0.4-2.0) Calcium (8.4-10.2) mg/dL Total Bilirubin (0.2-1.3) mg/dL AST (14-36) U/L ALT (0-35) U/L Alkaline Phosphatase (38-126) U/L Troponin I < 0.012 < 0.012 (0.000-0.034) ng/mL NT-Pro-B Natriuret Pep (0-900) pg/mL Serum Total Protein (6.3-8.2) g/dL Albumin (3.5-5.0) g/dL - Radiology Impressions Radiology Exams & Impressions: Radiology Procedures Category Date Time Status CHEST 1 VIEW (PORTABLE) Stat Exams 11/29/18 16:20 Completed [id number] RAD/CHEST 1 VIEW (PORTABLE) Indication: Cough. Short of breath. Comparison: April 29, 2018. Portable chest again demonstrates subtle right infrahilar infiltrate versus atelectasis and left base discoid atelectasis/scarring. Remaining heart, lungs, and bony thorax unremarkable. - Other Procedures and Tests Respiratory Therapy 11/29/18 19:53 Oxygen Nasal Cannula 3 lpm 11/29/18 22:08 Peak Expiratory Flow Rate DAILY Respiratory Therapy Assessment DAILY 11/30/18 11:32 Qualify for Home Oxygen TODAY Assessment/Plan (1) Pneumonia Current Visit: Yes Status: Acute Qualifiers: Pneumonia type: due to unspecified organism Laterality: right Lung location: middle lobe of lung Qualified Code(s): J18.1 - Lobar pneumonia, unspecified organism Code(s): J18.9 - PNEUMONIA, UNSPECIFIED ORGANISM (2) Hypoxia Current Visit: Yes Status: Acute Code(s): R09.02 - HYPOXEMIA (3) COPD exacerbation Current Visit: Yes Status: Acute Assessment & Plan: patient will need 2 liters of oxygen at home Code(s): J44.1 - CHRONIC OBSTRUCTIVE PULMONARY DISEASE W (ACUTE) EXACERBATION Hospital Summary - Hospital Course Hospital Course: Chief Complaint Diagnosis PNE, hypoxia Allergies Allergy/AdvReac Type Severity Reaction Status Date / Time codeine Allergy Intermediate rash, Verified 11/29/18 16:04 itching cefaclor [From Ceclor] Allergy Mild Rash Verified 11/29/18 16:04 Penicillins Allergy Mild Swelling Verified 11/29/18 16:04 bacitracin Allergy Verified 11/29/18 16:04 [From Neosporin ([id number])] bacitracin zinc Allergy Verified 11/29/18 16:04 [From Neosporin ([id number]-csx-[id number])] levofloxacin [From Levaquin] Allergy Verified 11/29/18 20:38 neomycin sulfate Allergy Verified 11/29/18 16:04 [From Neosporin ([id number]-hdi-[id number])] polymyxin B Allergy Verified 11/29/18 16:04 [From Neosporin ([id number])] Vital Signs (Last 24 hours) Temp Pulse Resp BP Pulse Ox 11/30/18 11:49 97.8 F 96 H 20 156/68 93 L 11/30/18 11:03 68 24 93 L 11/30/18 08:00 97.7 F 99 H 20 141/63 93 L 11/30/18 07:26 18 L 93 L 11/30/18 04:00 98.4 F 99 H 26 H 151/67 97 11/30/18 03:38 99 H 26 H 97 11/30/18 00:00 98.4 F 110 H 20 178/79 94 L 11/29/18 23:59 110 H 20 94 L 11/29/18 20:47 98.4 F 107 H 20 178/79 94 L 11/29/18 20:26 105 H 23 94 L 11/29/18 20:00 98.8 F 107 H 19 137/64 91 L 11/29/18 19:46 100 H 28 H 190/88 94 L 11/29/18 18:38 93 L 11/29/18 18:25 92 H 26 H 137/76 94 L 11/29/18 17:57 93 H 20 172/70 94 L 11/29/18 17:01 96 H 22 174/74 92 L 11/29/18 16:20 93 L 11/29/18 16:15 98.9 F 109 H 22 205/93 93 L Current Medications Generic Name Dose Route Start Last Admin Trade Name Freq PRN Reason Stop Dose Admin Acetaminophen 650 mg 11/29/18 19:53 Tylenol 325 Mg PO 12/29/18 19:52 Q4H PRN PRN PAIN, FEVER, HEADACHE Albuterol Sulfate 2.5 mg 11/30/18 07:00 11/30/18 10:58 Proventil 2.5 Mg/3 Ml Neb IH 12/30/18 06:59 2.5 mg Q4HRT FABRICIO Administration Bupropion HCl 150 mg 11/29/18 22:00 11/30/18 09:55 Wellbutrin Sr 150 Mg PO 12/29/18 21:59 150 mg BID FABRICIO Administration Famotidine 40 mg 11/29/18 22:00 11/29/18 23:02 Pepcid 20 Mg PO 12/29/18 21:59 40 mg HS FABRICIO Administration Azithromycin 500 mg in 250 mls @ 250 mls/hr 11/30/18 10:00 11/30/18 09:54 Zithromax 500 Mg/ 250 Ml Nacl Premix IV 12/30/18 09:59 250 mls/hr Q24H10 FABRICIO Administration Sodium Chloride 1,000 mls @ 50 mls/hr 11/29/18 19:53 11/29/18 20:32 Sodium Chloride 0.9% 1000 Ml IV 12/29/18 19:52 50 mls/hr .Q20H FABRICIO Administration Mirtazapine 15 mg 11/29/18 22:00 11/29/18 23:04 Remeron 30 Mg PO 12/29/18 21:59 15 mg HS FABRICIO Administration Naproxen 500 mg 11/29/18 22:00 11/30/18 09:55 Naprosyn 500 Mg PO 12/29/18 21:59 500 mg BID FABRICIO Administration Nicotine 21 mg 11/29/18 21:45 11/29/18 23:06 Nicoderm Cq 21 Mg TOP 12/29/18 21:44 21 mg Q24H FABRICIO Administration Ondansetron HCl 4 mg 11/29/18 19:53 Zofran 4 Mg/2 Ml Vial IV 12/29/18 19:52 Q6H PRN PRN NAUSEA/VOMITING Prednisone 40 mg 11/30/18 10:00 11/30/18 10:48 Deltasone 20 Mg PO 12/30/18 09:59 40 mg DAILY FABRICIO Administration Ropinirole HCl 1 mg 11/29/18 22:00 11/30/18 09:55 Requip 0.5 Mg PO 12/29/18 21:59 1 mg TID FABRICIO Administration Fluticasone/Salmeterol 2 puff 11/29/18 19:00 11/30/18 07:04 Advair Hfa 230/21 Mcg Common Canister* IH 12/29/18 18:59 2 puff BIDRT FABRICIO Administration Tiotropium [place] 1 ea 11/30/18 10:00 11/30/18 07:04 Spiriva 18 Mcg/Cap Inhaler IH 12/30/18 09:59 1 ea DAILY FABRICIO Administration Zolpidem Tartrate 5 mg 11/29/18 22:00 11/29/18 23:03 Ambien 5 Mg Tablet PO 12/29/18 21:59 5 mg HS FABRICIO Administration Discontinued Medications Generic Name Dose Route Start Last Admin Trade Name Freq PRN Reason Stop Dose Admin Albuterol/Ipratropium Confirm 11/29/18 16:09 Duoneb 0.5-3 Mg/3 Ml Neb Administered 11/29/18 16:10 Dose 3 ml IH .STK-MED ONE Albuterol/Ipratropium 3 ml 11/29/18 16:10 11/29/18 16:11 Duoneb 0.5-3 Mg/3 Ml Neb IH 11/29/18 16:11 3 ml STAT ONE Administration Albuterol/Ipratropium Confirm 11/29/18 20:18 Duoneb 0.5-3 Mg/3 Ml Neb Administered 11/29/18 20:19 Dose 3 ml IH .STK-MED ONE Albuterol/Ipratropium 3 ml 11/29/18 19:00 11/30/18 03:38 Duoneb 0.5-3 Mg/3 Ml Neb IH 12/29/18 18:59 3 ml Q4HRT FABRICIO Administration Albuterol/Ipratropium Confirm 11/29/18 22:52 Duoneb 0.5-3 Mg/3 Ml Neb Administered 11/29/18 22:53 Dose 3 ml IH .STK-MED ONE Albuterol/Ipratropium Confirm 11/30/18 02:48 Duoneb 0.5-3 Mg/3 Ml Neb Administered 11/30/18 02:49 Dose 3 ml IH .STK-MED ONE Diphenhydramine HCl 25 mg 11/29/18 17:16 11/29/18 17:24 Benadryl 50 Mg/Ml IV 11/29/18 17:17 25 mg STAT ONE Administration Diphenhydramine HCl Confirm 11/29/18 17:22 Benadryl 50 Mg/Ml Administered 11/29/18 17:23 Dose 50 mg .ROUTE .STK-MED ONE Levofloxacin/Dextrose 750 mg in 150 mls @ 100 mls/hr 11/29/18 17:00 11/29/18 17:04 Levofloxacin 750mg/150ml D5w IV 11/29/18 18:29 100 ml/hr STAT STA 100 mls/hr Administration Levofloxacin/Dextrose Confirm 11/29/18 17:03 Levofloxacin 750mg/150ml D5w Administered 11/29/18 17:04 Dose 750 mg in 150 mls @ ud IV .STK-MED ONE Azithromycin 500 mg in 250 mls @ 250 mls/hr 11/29/18 17:16 11/29/18 17:27 Zithromax 500 Mg/ 250 Ml Nacl Premix IV 11/29/18 18:15 250 mls/hr STAT ONE Administration Azithromycin Confirm 11/29/18 17:22 Zithromax 500 Mg/ 250 Ml Nacl Premix Administered 11/29/18 17:23 Dose 500 mg in 250 mls @ ud IV .STK-MED ONE Methylprednisolone Sodium Succinate 125 mg 11/29/18 16:20 11/29/18 16:28 Solu-Medrol 125 Mg IV 11/29/18 16:21 125 mg STAT ONE Administration Methylprednisolone Sodium Succinate Confirm 11/29/18 16:26 Solu-Medrol 125 Mg Administered 11/29/18 16:27 Dose 125 mg .ROUTE .STK-MED ONE Methylprednisolone Sodium Succinate 125 mg 11/29/18 19:53 11/30/18 03:14 Solu-Medrol 125 Mg IV 12/29/18 19:52 125 mg Q8H FABRICIO Administration Methylprednisolone Sodium Succinate 125 mg 11/30/18 14:00 Solu-Medrol 125 Mg IV 12/30/18 13:59 Q8HT FABRICIO Intake & Output (Last 24 hours) 11/28/18 11/29/18 11/30/18 12/01/18 11:59 11:59 11:59 11:59 Intake Total 858 Balance 858 Weight 95.2 kg Laboratory Results (Last 24 hours) 11/29/18 11/29/18 11/29/18 19:38 16:52 16:50 WBC RBC Hgb Hct MCV MCH MCHC RDW Plt Count MPV Gran % Eos # (Auto) Absolute Lymphs (auto) Absolute Monos (auto) Lymphocytes % Monocytes % Eosinophils % Basophils % Absolute Granulocytes Basophils # D-Dimer Sodium Potassium Chloride Carbon Dioxide Anion Gap BUN Creatinine Estimated GFR Glucose Lactic Acid 1.2 Calcium Total Bilirubin AST ALT Alkaline Phosphatase Troponin I < 0.012 < 0.012 NT-Pro-B Natriuret Pep Serum Total Protein Albumin 11/29/18 11/29/18 11/29/18 16:50 16:50 16:50 WBC 10.7 H RBC 4.70 Hgb 13.7 Hct 43.5 MCV 92.6 MCH 29.1 MCHC 31.5 L RDW 15.6 H Plt Count 217 MPV 10.8 H Gran % 65.5 Eos # (Auto) 0.92 H Absolute Lymphs (auto) 1.88 Absolute Monos (auto) 0.86 Lymphocytes % 17.6 L Monocytes % 8.1 Eosinophils % 8.6 H Basophils % 0.2 Absolute Granulocytes 6.99 H Basophils # 0.02 D-Dimer < 215 L Sodium 142 Potassium 4.1 Chloride 103 Carbon Dioxide 30 Anion Gap 13.9 BUN 12 Creatinine 0.66 Estimated GFR > 60.0 Glucose 102 Lactic Acid Calcium 9.7 Total Bilirubin 0.50 AST 25 ALT 37 H Alkaline Phosphatase 78 Troponin I NT-Pro-B Natriuret Pep 64.6 Serum Total Protein 7.1 Albumin 3.9 Orders (Last 24 hours) Category Date Time Status Up With Assistance TOLERATED Activity 11/29/18 19:53 Active Firer Locomotive Crane STAT Care 11/29/18 16:21 Completed EKG-ER Only STAT Care 11/29/18 16:20 Completed Elevate HOB TOLERATED Care 11/29/18 19:53 Active IV Insertion STAT Care 11/29/18 16:[address] in Observation ROUTINE Care 11/29/18 19:53 Active Pulse Oximetry (ED) STAT Care 11/29/18 16:20 Completed Weight,Daily 0600 Care 11/29/18 19:53 Active Regular Diet Diet 11/29/18 Dinner Active CHEST 1 VIEW (PORTABLE) Stat Exams 11/29/18 16:20 Completed CBC W DIFF Stat Lab 11/29/18 16:50 Completed CMP Stat Lab 11/29/18 16:50 Completed D-DIMER QUANTITATION Stat Lab 11/29/18 16:50 Completed Lactic Acid Stat Lab 11/29/18 16:52 Completed NT PRO BNP Stat Lab 11/29/18 16:50 Completed TROPONIN Q3H Lab 11/29/18 16:50 Completed TROPONIN Q3H Lab 11/29/18 19:38 Completed Acetaminophen 325 mg [Tylenol 325 mg] Med 11/29/18 19:53 Active 650 mg PO Q4H PRN PRN Albuterol 2.5 mg/3 ml Neb [Proventil 2.5 mg/3 ml Neb Med 11/30/18 07:00 Active ] 2.5 mg IH Q4HRT Albuterol/Ipratropium 3ml Neb* [DUONEB 0.5-3 MG/3 ml Med 11/29/18 16:09 Discontinued Neb] 3 ml IH .STK-MED ONE Albuterol/Ipratropium 3ml Neb* [DUONEB 0.5-3 MG/3 ml Med 11/29/18 20:18 Discontinued Neb] 3 ml IH .STK-MED ONE Albuterol/Ipratropium 3ml Neb* [DUONEB 0.5-3 MG/3 ml Med 11/29/18 22:52 Discontinued Neb] 3 ml IH .STK-MED ONE Albuterol/Ipratropium 3ml Neb* [DUONEB 0.5-3 MG/3 ml Med 11/30/18 02:48 Discontinued Neb] 3 ml IH .STK-MED ONE Albuterol/Ipratropium 3ml Neb* [DUONEB 0.5-3 MG/3 ml Med 11/29/18 19:00 Discontinued Neb] 3 ml IH Q4HRT Albuterol/Ipratropium 3ml Neb* [DUONEB 0.5-3 MG/3 ml Med 11/29/18 16:10 Discontinued Neb] 3 ml IH STAT ONE Azithromycin 500 mg/250 ml [Zithromax 500 MG/ 250 ML Med 11/30/18 10:00 Active NaCl Premix] 500 mg in 250 ml IV Q24H10 Azithromycin 500 mg/250 ml [Zithromax 500 MG/ 250 ML Med 11/29/18 17:16 Discontinued NaCl Premix] 500 mg in 250 ml IV STAT Azithromycin 500 mg/250 ml [Zithromax 500 MG/ 250 ML Med 11/29/18 17:22 Discontinued NaCl Premix] 500 mg in 250 ml IV UD Bupropion HCl 150 mg Sr [Wellbutrin SR 150 MG] Med 11/29/18 22:00 Active 150 mg PO BID Diphenhydramine HCl 50 mg/ml [Benadryl 50 mg/ml] Med 11/29/18 17:16 Discontinued 25 mg IV STAT ONE Diphenhydramine HCl 50 mg/ml [Benadryl 50 mg/ml] Med 11/29/18 17:22 Discontinued 50 mg .ROUTE .STK-MED ONE Famotidine 20 mg [Pepcid 20 MG] Med 11/29/18 22:00 Active 40 mg PO HS Fluticasone/Salmeterol 230/21 [Advair Hfa 230/21 Mcg Med 11/29/18 19:00 Active COMMON CANISTER*] 2 puff IH BIDRT Levofloxacin [Levofloxacin 750Mg/150Ml D5w] Med 11/29/18 17:00 Discontinued 750 mg in 150 ml IV STAT Levofloxacin [Levofloxacin 750Mg/150Ml D5w] Med 11/29/18 17:03 Discontinued 750 mg in 150 ml IV UD Methylprednis Sod Succ 125 mg* [solu-MEDROL 125 MG] Med 11/29/18 16:26 Discontinued 125 mg .ROUTE .STK-MED ONE Methylprednis Sod Succ 125 mg* [solu-MEDROL 125 MG] Med 11/29/18 19:53 Discontinued 125 mg IV Q8H Methylprednis Sod Succ 125 mg* [solu-MEDROL 125 MG] Med 11/30/18 14:00 Discontinued 125 mg IV Q8HT Methylprednis Sod Succ 125 mg* [solu-MEDROL 125 MG] Med 11/29/18 16:20 Discontinued 125 mg IV STAT ONE Mirtazapine 30 mg [Remeron 30 mg] Med 11/29/18 22:00 Active 15 mg PO HS NaCl 0.9% 1000 ml [Sodium Chloride 0.9% 1000 ML] 1,000 Med 11/29/18 19:53 Active ml IV 50 mls/hr Naproxen 500 mg [Naprosyn 500 MG] Med 11/29/18 22:00 Active 500 mg PO BID Nicotine 21 mg [Nicoderm CQ 21 MG] Med 11/29/18 21:45 Active 21 mg TOP Q24H Ondansetron HCl 4 mg/2 ml [Zofran 4 MG/2 ML VIAL] Med 11/29/18 19:53 Active 4 mg IV Q6H PRN PRN Prednisone 20 mg [Deltasone 20 mg] Med 11/30/18 10:00 Active 40 mg PO DAILY Ropinirole HCl 0.5 mg [Requip 0.5 MG] Med 11/29/18 22:00 Active 1 mg PO TID Tiotropium [place] Inhaler [Spiriva 18 Mcg/Cap Med 11/30/18 10:00 Active Inhaler] 1 ea IH DAILY Zolpidem Tartrate 5 mg [Ambien 5 MG Tablet] Med 11/29/18 22:00 Active 5 mg PO HS Oxygen Nasal Cannula 3 lpm RT 11/29/18 19:53 Active Peak Expiratory Flow Rate DAILY RT 11/29/18 22:08 Active Peak Expiratory Flow Rate ONCE RT 11/29/18 16:15 Completed Pulse Oximetry .spot check RT 11/29/18 22:08 Active Qualify for Home Oxygen TODAY RT 11/30/18 11:32 Active RT Screen per Nursing Assess ONCE RT 11/29/18 21:09 Completed Respiratory Therapy Assessment DAILY RT 11/29/18 16:14 Completed Respiratory Therapy Assessment DAILY RT 11/29/18 22:08 Active Respiratory Therapy Consult ROUTINE RT 11/29/18 19:53 Completed Smoking Cessation Education ONCE RT 11/29/18 21:09 Completed Patient Care Notes (Last 24 hours) 11/30/18 11:48 Respiratory Note by Alexsandra Novak PT WAS ON 4L OXYGEN. TOOK OXYGEN OFF. ON ROOM AIR RESTING PT WAS 88%. PLACED 4L BACK ON PT SATS UP TO 92% Addendum entered by Alexsandra Novak 11/30/18 11:59: PLACED PT ON 2L OXYGEN SATS 91% Initialized on 11/30/18 11:48 - END OF NOTE 11/29/18 21:27 Nursing Note by Paxton Shell Called Dr Linder to go over med list, he ordered to continue all home meds, and ordered Nicotine patch 21mg Initialized on 11/29/18 21:27 - END OF NOTE - Vitals & Intake/Output Vital Signs: Vital Signs Temperature 97.8 F 11/30/18 11:49 Pulse Rate 96 H 11/30/18 11:49 Respiratory Rate 20 11/30/18 11:49 Blood Pressure 156/68 11/30/18 11:49 O2 Sat by Pulse Oximetry 93 L 11/30/18 11:49 Oxygen-Last Documented O2 Percentage 4 Liters = 36% Intake & Output: Intake & Output 11/28/18 11/29/18 11/30/18 12/01/18 11:59 11:59 11:59 11:59 Intake Total 858 Balance 858 Weight 95.2 kg - Lab Result Diagrams: 11/29/18 16:50 11/29/18 16:50 Lab Results-Last 24 Hrs: Lab Results-Last 24 Hours 11/29/18 11/29/18 11/29/18 Range/Units 16:50 16:50 16:50 WBC 10.7 H (4.0-10.5) K/mm3 RBC 4.70 (4.1-5.4) M/mm3 Hgb 13.7 (12.0-16.0) gm/dl Hct 43.5 (35-47) % MCV 92.6 (78-100) fl MCH 29.1 (26-32) pg MCHC 31.5 L (32-36) g/dl RDW 15.6 H (11.5-14.0) % Plt Count 217 (150-450) K/mm3 MPV 10.8 H (6-9.5) fl Gran % 65.5 (36.0-66.0) % Eos # (Auto) 0.92 H (0-0.5) Absolute Lymphs (auto) 1.88 (1.0-4.6) Absolute Monos (auto) 0.86 (0.0-1.3) Lymphocytes % 17.6 L (24.0-44.0) % Monocytes % 8.1 (0.0-12.0) % Eosinophils % 8.6 H (0.00-5.0) % Basophils % 0.2 (0.0-0.4) % Absolute Granulocytes 6.99 H (1.4-6.9) Basophils # 0.02 (0-0.4) D-Dimer < 215 L (215-500) ng/mL Sodium 142 (137-145) mmol/L Potassium 4.1 (3.5-5.1) mmol/L Chloride 103 (98-107) mmol/L Carbon Dioxide 30 (22-30) mmol/L Anion Gap 13.9 (5-15) MEQ/L BUN 12 (7-17) mg/dL Creatinine 0.66 (0.52-1.04) mg/dL Estimated GFR > 60.0 ML/MIN Glucose 102 (74-106) mg/dL Lactic Acid (0.4-2.0) Calcium 9.7 (8.4-10.2) mg/dL Total Bilirubin 0.50 (0.2-1.3) mg/dL AST 25 (14-36) U/L ALT 37 H (0-35) U/L Alkaline Phosphatase 78 (38-126) U/L Troponin I (0.000-0.034) ng/mL NT-Pro-B Natriuret Pep 64.6 (0-900) pg/mL Serum Total Protein 7.1 (6.3-8.2) g/dL Albumin 3.9 (3.5-5.0) g/dL 11/29/18 11/29/18 11/29/18 Range/Units 16:50 16:52 19:38 WBC (4.0-10.5) K/mm3 RBC (4.1-5.4) M/mm3 Hgb (12.0-16.0) gm/dl Hct (35-47) % MCV (78-100) fl MCH (26-32) pg MCHC (32-36) g/dl RDW (11.5-14.0) % Plt Count (150-450) K/mm3 MPV (6-9.5) fl Gran % (36.0-66.0) % Eos # (Auto) (0-0.5) Absolute Lymphs (auto) (1.0-4.6) Absolute Monos (auto) (0.0-1.3) Lymphocytes % (24.0-44.0) % Monocytes % (0.0-12.0) % Eosinophils % (0.00-5.0) % Basophils % (0.0-0.4) % Absolute Granulocytes (1.4-6.9) Basophils # (0-0.4) D-Dimer (215-500) ng/mL Sodium (137-145) mmol/L Potassium (3.5-5.1) mmol/L Chloride (98-107) mmol/L Carbon Dioxide (22-30) mmol/L Anion Gap (5-15) MEQ/L BUN (7-17) mg/dL Creatinine (0.52-1.04) mg/dL Estimated GFR ML/MIN Glucose (74-106) mg/dL Lactic Acid 1.2 (0.4-2.0) Calcium (8.4-10.2) mg/dL Total Bilirubin (0.2-1.3) mg/dL AST (14-36) U/L ALT (0-35) U/L Alkaline Phosphatase (38-126) U/L Troponin I < 0.012 < 0.012 (0.000-0.034) ng/mL NT-Pro-B Natriuret Pep (0-900) pg/mL Serum Total Protein (6.3-8.2) g/dL Albumin (3.5-5.0) g/dL - Radiology Exams Ordered Rad Exams-Entire Visit: Radiology Procedures Category Date Time Status CHEST 1 VIEW (PORTABLE) Stat Exams 11/29/18 16:20 Completed - Procedures and Test Procedures and Tests throughout Hospitalization: Therapy Orders & Screens 11/29/18 16:14 Respiratory Therapy Assessment DAILY Comment: 11/29/18 16:15 Peak Expiratory Flow Rate ONCE Comment: Reason For Exam: 11/29/18 19:53 Oxygen Nasal Cannula 3 lpm Comment: Respiratory Therapy Consult ROUTINE Comment: Reason For Exam: 11/29/18 21:09 RT Screen per Nursing Assess ONCE Comment: Protocol Order Physician Instructions: Greater than 3 points order RT Admission Screen Reason For Exam: Triggered on Admission Diagnosis: PNE, hypoxia Diagnosis: PNE, hypoxia Pneumonia: Yes Home O2: No Asthma: No CHF: No Home CPAP/BIPAP: No Home Nebs/MDI: Yes Total Points: 8 Smoking Cessation Education ONCE Comment: Diagnosis: PNE, hypoxia Smoking Status: Current every day smoker How long have you smoked: YRS Approximately how many cigarettes per day: 2 PPD Do you dip or chew tobacco: No 11/29/18 22:08 Peak Expiratory Flow Rate DAILY Comment: Reason For Exam: Diagnosis: PNE, hypoxia Respiratory Therapy Assessment DAILY Comment: Diagnosis: PNE, hypoxia 11/30/18 11:32 Qualify for Home Oxygen TODAY Comment: Diagnosis: PNE, hypoxia - Discharge Discharge Date: 11/30/18 Disposition: Home, Self-Care Condition: Stable Prescriptions: New Azithromycin [Zithromax Tri-Nahid] 500 mg PO DAILY #3 tablet Continue Bupropion HCl 150 mg Sr [Wellbutrin SR 150 MG] 150 mg PO BID Ropinirole HCl [Requip] 1 mg PO TID Zolpidem Tartrate [Ambien] 5 mg PO HS Naproxen [Naprosyn] 500 mg PO BID Mirtazapine [Remeron] 15 mg PO HS Famotidine [Pepcid] 40 mg PO HS Prednisone 20 mg [Deltasone 20 mg] 2 tab PO DAILY #10 tablet Tiotropium [place] [Spiriva Respimat] 1 inh PO UD Budesonide/Formoterol Fumarate [Symbicort 160-4.5 Mcg Inhaler] 1 inh PO UD Follow up with: ARSH LINDER MD [Primary Care Provider] - 12/06/18 10:00 am (at [place] )
[2018-11-30] MEDS ORDERED: solu-MEDROL 125 MG IV SCH (14:00)
[2018-11-30 15:32] VITALS: PULSE 102; O2SAT 87
== END 2018-11-30 15:55 | disposition home or self-care (01) ==
LOC: ED 15:58 → MED SURG 19:39
PROVIDERS: ADMIT General Practice; ATTEND General Practice
DX: J18.9 Pneumonia, unspecified organism (principal); J44.1 Chronic obstructive pulmonary disease with (acute) exacerbation; R09.02 Hypoxemia; R07.9 Chest pain, unspecified; R05 Cough; Z79.899 Other long term (current) drug therapy; F17.200 Nicotine dependence, unspecified, uncomplicated
CPT/HCPCS: 36000; 36415; 71045; 80053; 83605; 83880; 84484; 85025; 85379; 93005; 93041; 94150; 94640; 94760; 96365; 96367; 96374; 96375; 99285; G0378; J0456; J1200; J1956; J2930; J7609; A9270-GY

== ENCOUNTER 2019-04-21 20:11 | Emergency (ER) | payer MEDICARE ==
--- NOTE | 2019-04-21 20:34 | ERPHSYRPT ---
- History of Present Illness Time Seen by Provider: 04/21/19 20:25 Source: patient Exam Limitations: no limitations Patient Subjective Stated Complaint: right foot pain & swelling Physician History: about 28 hours ago at home pt dropped a board with a vamsi nail in it which punctured her right forefoot. today her right foot is red, swollen and painful around puncture site. pt also has had a cough productive of yellow phlegm for the past 3 months. Allergies/Adverse Reactions: codeine Allergy (Intermediate, Verified 11/29/18 16:04) rash, itching cefaclor [From Ceclor] Allergy (Mild, Verified 11/29/18 16:04) Rash Penicillins Allergy (Mild, Verified 11/29/18 16:04) Swelling bacitracin [From Neosporin ([id number]-frx-[id number])] Allergy (Verified 11/29/18 16:04) bacitracin zinc [From Neosporin ([id number])] Allergy (Verified 11/29/18 16: 04) levofloxacin [From Levaquin] Allergy (Verified 11/29/18 20:38) neomycin sulfate [From Neosporin ([id number])] Allergy (Verified 11/29/18 16: 04) polymyxin B [From Neosporin (yuc-hoo-rqeeh)] Allergy (Verified 11/29/18 16:04) Home Medications: Bupropion HCl 150 mg Sr [Wellbutrin SR 150 MG] 150 mg PO BID 03/05/14 [ History] Ropinirole HCl [Requip] 2 mg PO TID 03/05/14 [History] Famotidine [Pepcid] 40 mg PO HS 11/23/16 [History] Mirtazapine [Remeron] 15 mg PO HS 11/23/16 [History] Naproxen [Naprosyn] 500 mg PO BID 11/23/16 [History] Budesonide/Formoterol Fumarate [Symbicort 160-4.5 Mcg Inhaler] 1 inh PO UD 04/29 [History] Tiotropium [place] [Spiriva Respimat] 1 inh PO UD 04/29/18 [History] Hx Tetanus, Diphtheria Vaccination/Date Given: No Hx Influenza Vaccination/Date Given: No Hx Pneumococcal Vaccination/Date Given: No - Review of Systems Constitutional: No Fever Respiratory: Cough, No Dyspnea Cardiac: No Chest Pain Abdominal/Gastrointestinal: No Abdominal Pain, No Nausea, No Vomiting Musculoskeletal: Injury (right forefoot) Neurological: No Headache All Other Systems: Reviewed and Negative - Past Medical History Pertinent Past Medical History: Yes Neurological History: No Pertinent History ENT History: No Pertinent History Cardiac History: No Pertinent History Respiratory History: COPD, Emphysema Endocrine Medical History: No Pertinent History Musculoskeletal History: Arthritis, Fibromyalgia GI Medical History: No Pertinent History History: Other Psycho-Social History: No Pertinent History Female Reproductive Disorders: No Pertinent History Other Medical History: leaky bladder - Past Surgical History Past Surgical History: Yes Neuro Surgical History: No Pertinent History Cardiac: No Pertinent History Respiratory: No Pertinent History Gastrointestinal: Cholecystectomy Genitourinary: No Pertinent History Musculoskeletal: No Pertinent History Female Surgical History: No Pertinent History, Tubal Ligation - Social History Smoking Status: Current every day smoker How long have you smoked: YRS Exposure to second hand smoke: Yes Drug Use: none Patient Lives Alone: No - Nursing Vital Signs Nursing Vital Signs: Initial Vital Signs Temperature 98.0 F 04/21/19 20:12 Pulse Rate 93 H 04/21/19 20:12 Respiratory Rate 22 04/21/19 20:12 Blood Pressure 163/94 04/21/19 20:12 O2 Sat by Pulse Oximetry 97 04/21/19 20:12 Pain Scale Pain Intensity 0 - Physical Exam General Appearance: alert Eyes, Ears, Nose, Throat Exam: pharynx normal, moist mucous membranes Neck Exam: normal inspection Cardiovascular/Respiratory Exam: wheezing (minimal expiratory wheezing over posterior bases.) Foot Exam: right foot: swelling (mild edema, erythema and tenderness around a puncture wound over the medial aspect of the right forefoot.) Mental Status Exam: alert, cooperative SpO2: 97 - Course Nursing assessment & vital signs reviewed: Yes Ordered Tests: Active Orders 24 hr Category Date Time Status IV Insertion STAT Care 04/21/19 20:34 Active CHEST 2 VIEWS (PA AND LAT) Stat Exams 04/21/19 20:35 Ordered FOOT (MINIMUM 3 VIEWS) Stat Exams 04/21/19 20:37 Ordered BLOOD CULTURE Stat Lab 04/21/19 21:24 Received CBC W DIFF Stat Lab 04/21/19 21:24 Completed CULTURE,SPUTUM Stat Lab 04/21/19 21:30 Ordered Respiratory Therapy Assessment DAILY RT 04/21/19 21:34 Completed Medication Summary Discontinued Medications Generic Name Dose Route Start Last Admin Trade Name Jorge PRN Reason Stop Dose Admin Albuterol Sulfate 2.5 mg 04/21/19 20:34 04/21/19 21:33 Proventil 2.5 Mg/3 Ml Neb IH 04/21/19 20:35 2.5 mg STAT ONE Administration Albuterol Sulfate Confirm 04/21/19 21:32 Proventil 2.5 Mg/3 Ml Neb Administered 04/21/19 21:33 Dose 2.5 mg IH .STK-MED ONE Diphtheria/Tetanus/Acell Pertussis 0.5 ml 04/21/19 21:58 04/21/19 22:00 Adacel Vial IM 04/21/19 21:59 0.5 ml .ONCE ONE Administration Clindamycin HCl/Dextrose 900 mg in 50 mls @ 100 mls/hr 04/21/19 20:36 21:54 Clindamycin-D5w 900 Mg/50 Ml IV 04/21/19 21:05 Infused STAT STA Infusion Clindamycin HCl/Dextrose Confirm 04/21/19 21:23 Clindamycin-D5w 900 Mg/50 Ml Administered 04/21/19 21:24 Dose 900 mg in 50 mls @ ud IV .STK-MED ONE Tetanus/Diphtheria Toxoids Adsorbed Confirm 04/21/19 21:57 Tenivac Vial Administered 04/21/19 21:58 Dose 0.5 ml IM .STK-MED ONE Lab/Rad Data: Laboratory Result Diagrams 04/21/19 21:24 Laboratory Results 04/21/19 Range/Units 21:24 WBC 6.6 (4.0-10.5) K/mm3 RBC 5.10 (4.1-5.4) M/mm3 Hgb 15.4 (12.0-16.0) gm/dl Hct 47.6 H (35-47) % MCV 93.3 (78-100) fl MCH 30.2 (26-32) pg MCHC 32.4 (32-36) g/dl RDW 15.2 H (11.5-14.0) % Plt Count 190 (150-450) K/mm3 MPV 10.6 H (6-9.5) fl Gran % 61.3 (36.0-66.0) % Eos # (Auto) 0.31 (0-0.5) Absolute Lymphs (auto) 1.82 (1.0-4.6) Absolute Monos (auto) 0.41 (0.0-1.3) Lymphocytes % 27.5 (24.0-44.0) % Monocytes % 6.2 (0.0-12.0) % Eosinophils % 4.7 (0.00-5.0) % Basophils % 0.3 (0.0-0.4) % Absolute Granulocytes 4.07 (1.4-6.9) Basophils # 0.02 (0-0.4) - Progress Progress Note: 04/21/19 22:06 pt does not want to wait for cxr & right foot x-ray. - Departure Departure Disposition: Home Clinical Impression: Cellulitis of right foot, Bronchitis Condition: Stable Critical Care Time: No Referrals: ARSH LINDER MD [Primary Care Provider] - Instructions: Cellulitis (Skin Infection), Adult (DC) Additional Instructions: elevate right foot above heart level for the next 2 days. neosporin & bandage to puncture wound daily for the next 10 days. Prescriptions: Clindamycin HCl 300 mg PO Q6H #40 capsule
[2019-04-21] MEDS ORDERED: CLINDAMYCIN-D5W 900 MG/50 ML*** 900 MG/50 ML BAG IV ONE (21:23)
[2019-04-21] MEDS: CLINDAMYCIN-D5W 900 MG/50 ML*** 900 MG/50 ML BAG IV STA (21:24)
[2019-04-21 21:25] LABS: BASOPHIL % 0.3 % (0.0-0.4); Basophil (Absolute #) 0.02 (0-0.4); Eosinophil % 4.7 % (0.00-5.0); Eosinophil (Absolute #) 0.31 (0-0.5); Granulocyte Absolute (ANC) 4.07 (1.4-6.9); Granulocytes % 61.3 % (36.0-66.0); Hematocrit 47.6 % (35-47); Hemoglobin 15.4 gm/dl (12.0-16.0); Lymphocyte (Absolute #) 1.82 (1.0-4.6); Lymphocytes % 27.5 % (24.0-44.0); Mean Cell Volume 93.3 fl (78-100); Mean Corpuscular Hemoglobin 30.2 pg (26-32); Mean Corpuscular Hgb Concent. 32.4 g/dl (32-36); Mean Platelet Volume 10.6 fl (6-9.5); Monocyte (Absolute #) 0.41 (0.0-1.3); Monocytes % 6.2 % (0.0-12.0); Platelet Count 190 K/mm3 (150-450); Red Cell Distribution Width 15.2 % (11.5-14.0); White Blood Count 6.6 K/mm3 (4.0-10.5)
[2019-04-21] MEDS ORDERED: PROVENTIL 2.5 MG/3 ML NEB IH ONE (21:32)
[2019-04-21] MEDS: PROVENTIL 2.5 MG/3 ML NEB IH ONE (21:33)
[2019-04-21] MEDS ORDERED: TENIVAC VIAL IM ONE (21:57)
[2019-04-21] MEDS: Adacel Vial IM ONE (22:00)
[2019-04-21 22:19] VITALS: BP 166/92; PULSE 84; O2SAT 94
== END 2019-04-21 22:25 | disposition home or self-care (01) ==
LOC: ED 20:11
DX: L03.115 Cellulitis of right lower limb (principal); J40 Bronchitis, not specified as acute or chronic
CPT/HCPCS: 36000; 36415; 85025; 87040; 90471; 90714; 90715; 94640; 96365; 99284; J7609; A9270-GY

== ENCOUNTER 2019-08-18 07:52 | Emergency (ER) | payer MEDICARE ==
--- NOTE | 2019-08-18 08:36 | ERPHSYRPT ---
- History of Present Illness Time Seen by Provider: 08/18/19 08:25 Source: patient Exam Limitations: no limitations Patient Subjective Stated Complaint: PATIENT STATES HAS BEEN HAVING LOWER BACK PAIN LAST 3 DAYS. PATIENT STATES " WHEN I STAND MY LEGS WHAT TO BUCKLE" PATIENT STATES " HAVE A VAGINAL PAIN LAST 6 MONTHS AND HAS SEEN HER PCP. PATIENT STATES HAVING PAIN AND BURNING UPON URINATION. Triage Nursing Assessment: PATIENT AMBULATED TO ER WITH SLOW AND STEADY GAIT. PATIENT A/O TIMES 3 AND ANSWERS QUESTIONS APPROPRIATLEY. SKIN WARM AND DRY. LOWER BACK WITH NO SWELLING OR BRUISING. NO ABNORMALITIES NOTED UPON PALPITATION. COLLECTED URINE THAT IS CLEAR. Physician History: 63 y/o white female presents with 6 month h/o intermittent suprapubic and vaginal pain. denies vaginal discharge. pt has seen her pcp, dr. linder, for these complaints several times. pt has been placed on diflucan. what brought pt into ED today was her sx have been constant for a week and she has had 3 day h/ o constant back pain. denies n/v. dysuria also present Timing/Duration: constant, other (chronic) Activites at Onset: none Quality: cramping, stabbing Onset Location: suprapubic, vaginal Pain Radiation: back, suprapubic, vaginal Severity of Pain-Max: moderate Severity of Pain-Current: moderate Sexual intercourse history: non-contributory Modifying Factors: Worsens With: vomiting Allergies/Adverse Reactions: codeine Allergy (Intermediate, Verified 08/18/19 08:20) rash, itching cefaclor [From Ceclor] Allergy (Mild, Verified 08/18/19 08:20) Rash Penicillins Allergy (Mild, Verified 08/18/19 08:20) Swelling bacitracin [From Neosporin ([id number])] Allergy (Verified 08/18/19 08:20) bacitracin zinc [From Neosporin (alj-kum-[id number])] Allergy (Verified 08/18/19 08: 20) levofloxacin [From Levaquin] Allergy (Verified 08/18/19 08:20) neomycin sulfate [From Neosporin (hit-jhc-hjojy)] Allergy (Verified 08/18/19 08: 20) polymyxin B [From Neosporin (enm-mqs-[id number])] Allergy (Verified 08/18/19 08:20) Home Medications: Bupropion HCl 150 mg Sr [Wellbutrin SR 150 MG] 150 mg PO BID 03/05/14 [ History] Ropinirole HCl [Requip] 2 mg PO TID 03/05/14 [History] Famotidine [Pepcid] 40 mg PO HS 11/23/16 [History] Mirtazapine [Remeron] 15 mg PO HS 11/23/16 [History] Naproxen [Naprosyn] 500 mg PO BID PRN 11/23/16 [History] Budesonide/Formoterol Fumarate [Symbicort 160-4.5 Mcg Inhaler] 1 inh PO UD 04/29 [History] Tiotropium [place] [Spiriva Respimat] 1 inh PO UD 04/29/18 [History] Alprazolam [Xanax] 0.25 mg PO TID 08/18/19 [History] Zolpidem Tartrate [Ambien] 5 mg PO HS 08/18/19 [History] Hx Tetanus, Diphtheria Vaccination/Date Given: Yes Hx Influenza Vaccination/Date Given: No Hx Pneumococcal Vaccination/Date Given: No - Review of Systems Constitutional: No Symptoms Eyes: No Symptoms Ears, Nose, & Throat: No Symptoms Respiratory: No Symptoms Cardiac: No Symptoms Abdominal/Gastrointestinal: Abdominal Pain (suprapubic ) Genitourinary Symptoms: Dysuria, Flank Pain Musculoskeletal: Back Pain Skin: No Symptoms Neurological: No Symptoms Psychological: No Symptoms Endocrine: No Symptoms Hematologic/Lymphatic: No Symptoms Immunological/Allergic: No Symptoms All Other Systems: Reviewed and Negative - Past Medical History Pertinent Past Medical History: Yes Neurological History: No Pertinent History ENT History: No Pertinent History Cardiac History: No Pertinent History Respiratory History: COPD, Emphysema Endocrine Medical History: No Pertinent History Musculoskeletal History: Arthritis, Fibromyalgia GI Medical History: No Pertinent History History: Other Psycho-Social History: No Pertinent History Female Reproductive Disorders: No Pertinent History Other Medical History: leaky bladder - Past Surgical History Past Surgical History: Yes Neuro Surgical History: No Pertinent History Cardiac: No Pertinent History Respiratory: No Pertinent History Gastrointestinal: Cholecystectomy Genitourinary: No Pertinent History Musculoskeletal: No Pertinent History Female Surgical History: No Pertinent History, Tubal Ligation - Social History Smoking Status: Current every day smoker How long have you smoked: 20 YEARS Exposure to second hand smoke: Yes Drug Use: none Patient Lives Alone: No - Female History Hx Now: No - Nursing Vital Signs Nursing Vital Signs: Initial Vital Signs Temperature 97.4 F 08/18/19 08:02 Pulse Rate 84 08/18/19 08:02 Respiratory Rate 18 08/18/19 08:02 Blood Pressure 223/91 08/18/19 08:02 O2 Sat by Pulse Oximetry 94 L 08/18/19 08:02 Pain Scale Pain Intensity 3 - Physical Exam General Appearance: mild distress, alert, anxiety Eye Exam: PERRL/EOMI, eyes nml inspection Ears, Nose, Throat Exam: normal ENT inspection, moist mucous membranes Neck Exam: normal inspection, non-tender, supple, full range of motion Respiratory Exam: normal breath sounds, lungs clear, airway intact, No chest tenderness, No respiratory distress Cardiovascular Exam: regular rate/rhythm, normal heart sounds, normal peripheral pulses Gastrointestinal/Abdomen Exam: soft, normal bowel sounds, tenderness (suprapubic ), guarding, No rebound Pelvic Exam: not done Rectal Exam: not done Back Exam: normal inspection, normal range of motion, No CVA tenderness, No vertebral tenderness Extremity Exam: normal inspection, normal range of motion, pelvis stable Neurologic Exam: alert, 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, cooperative, clinical reviewer II-XII nml as tested Skin Exam: normal color, warm, dry Lymphatic Exam: adenopathy SpO2 Interpretation: borderline oxygenation SpO2: 94 O2 Delivery: Room Air - Course Nursing assessment & vital signs reviewed: Yes Ordered Tests: Active Orders 24 hr Category Date Time Status IV Insertion STAT Care 08/18/19 08:36 Active ABDOMEN AND PELVIS W/0 CONTRAS [CT] Stat Exams 08/18/19 08:37 Completed AMYLASE Stat Lab 08/18/19 09:07 Completed CBC W DIFF Stat Lab 08/18/19 09:07 Completed CMP Stat Lab 08/18/19 09:07 Completed LIPASE Stat Lab 08/18/19 09:07 Completed Lactic Acid Stat Lab 08/18/19 09:07 Completed UA W/RFX UR CULTURE Stat Lab 08/18/19 09:07 Completed Medication Summary Generic Name Dose Route Start Last Admin Trade Name Freq PRN Reason Stop Dose Admin Sodium Chloride 1,000 mls @ 100 mls/hr 08/18/19 09:00 08/18/19 08:54 Sodium Chloride 0.9% 1000 Ml IV 09/17/19 08:59 100 mls/hr .Q10H FABRICIO Administration Discontinued Medications Generic Name Dose Route Start Last Admin Trade Name Jorge PRN Reason Stop Dose Admin Hydromorphone HCl 0.5 mg 08/18/19 08:47 08/18/19 08:54 Hydromorphone 1 Mg/Ml Ampule IV 08/18/19 08:48 0.5 mg STAT ONE Administration Hydromorphone HCl Confirm 08/18/19 08:52 Hydromorphone 1 Mg/Ml Ampule Administered 08/18/19 08:53 Dose 1 mg .ROUTE .STK-MED ONE Ondansetron HCl 4 mg 08/18/19 08:47 08/18/19 08:55 Zofran 4 Mg/2 Ml Vial IV 08/18/19 08:48 4 mg STAT ONE Administration Ondansetron HCl Confirm 08/18/19 08:52 Zofran 4 Mg/2 Ml Vial Administered 08/18/19 08:53 Dose 4 mg .ROUTE .STK-MED ONE Lab/Rad Data: Laboratory Result Diagrams 08/18/19 09:07 08/18/19 09:07 Laboratory Results 08/18/19 08/18/19 08/18/19 Range/Units 09:07 09:07 09:07 WBC (4.0-10.5) K/mm3 RBC (4.1-5.4) M/mm3 Hgb (12.0-16.0) gm/dl Hct (35-47) % MCV (78-100) fl MCH (26-32) pg MCHC (32-36) g/dl RDW (11.5-14.0) % Plt Count (150-450) K/mm3 MPV (6-9.5) fl Gran % (36.0-66.0) % Eos # (Auto) (0-0.5) Absolute Lymphs (auto) (1.0-4.6) Absolute Monos (auto) (0.0-1.3) Lymphocytes % (24.0-44.0) % Monocytes % (0.0-12.0) % Eosinophils % (0.00-5.0) % Basophils % (0.0-0.4) % Absolute Granulocytes (1.4-6.9) Basophils # (0-0.4) Sodium 143 (137-145) mmol/L Potassium 4.4 (3.5-5.1) mmol/L Chloride 104 (98-107) mmol/L Carbon Dioxide 33 H (22-30) mmol/L Anion Gap 10.4 (5-15) MEQ/L BUN 20 H (7-17) mg/dL Creatinine 0.76 (0.52-1.04) mg/dL Estimated GFR > 60.0 ML/MIN Glucose 111 H (74-106) mg/dL Lactic Acid 1.1 (0.4-2.0) Calcium 9.6 (8.4-10.2) mg/dL Total Bilirubin 0.50 (0.2-1.3) mg/dL AST 19 (14-36) U/L ALT 18 (0-35) U/L Alkaline Phosphatase 67 (38-126) U/L Serum Total Protein 7.8 (6.3-8.2) g/dL Albumin 4.1 (3.5-5.0) g/dL Amylase 84 (30-110) U/L Lipase 111 (23-300) U/L Urine Color STRAW (YELLOW) Urine Appearance CLEAR (CLEAR) Urine pH 6.0 (5-6) Ur Specific [place] 1.012 (1.005-1.025) Urine Protein 100 (Negative) Urine Ketones NEGATIVE (NEGATIVE) Urine Blood NEGATIVE (0-5) [place]/ul Urine Nitrite NEGATIVE (NEGATIVE) Urine Bilirubin NEGATIVE (NEGATIVE) Urine Urobilinogen NEGATIVE (0-1) mg/dL Ur Leukocyte Esterase NEGATIVE (NEGATIVE) Urine WBC (Auto) 0-2 (0-5) /HPF Urine RBC (Auto) NONE (0-2) /HPF U Epithel Cells (Auto) RARE (FEW) /HPF Urine Bacteria (Auto) NONE (NEGATIVE) /HPF Urine Mucus (Auto) SLIGHT (NEGATIVE) /HPF Urine Culture Reflexed NO (NO) Urine Glucose NEGATIVE (NEGATIVE) mg/dL 08/18/19 Range/Units 09:07 WBC 6.9 (4.0-10.5) K/mm3 RBC 5.03 (4.1-5.4) M/mm3 Hgb 15.0 (12.0-16.0) gm/dl Hct 47.0 (35-47) % MCV 93.4 (78-100) fl MCH 29.8 (26-32) pg MCHC 31.9 L (32-36) g/dl RDW 14.9 H (11.5-14.0) % Plt Count 204 (150-450) K/mm3 MPV 10.3 H (6-9.5) fl Gran % 62.5 (36.0-66.0) % Eos # (Auto) 0.26 (0-0.5) Absolute Lymphs (auto) 1.65 (1.0-4.6) Absolute Monos (auto) 0.64 (0.0-1.3) Lymphocytes % 24.0 (24.0-44.0) % Monocytes % 9.3 (0.0-12.0) % Eosinophils % 3.8 (0.00-5.0) % Basophils % 0.4 (0.0-0.4) % Absolute Granulocytes 4.30 (1.4-6.9) Basophils # 0.03 (0-0.4) Sodium (137-145) mmol/L Potassium (3.5-5.1) mmol/L Chloride (98-107) mmol/L Carbon Dioxide (22-30) mmol/L Anion Gap (5-15) MEQ/L BUN (7-17) mg/dL Creatinine (0.52-1.04) mg/dL Estimated GFR ML/MIN Glucose (74-106) mg/dL Lactic Acid (0.4-2.0) Calcium (8.4-10.2) mg/dL Total Bilirubin (0.2-1.3) mg/dL AST (14-36) U/L ALT (0-35) U/L Alkaline Phosphatase (38-126) U/L Serum Total Protein (6.3-8.2) g/dL Albumin (3.5-5.0) g/dL Amylase (30-110) U/L Lipase (23-300) U/L Urine Color (YELLOW) Urine Appearance (CLEAR) Urine pH (5-6) Ur Specific [place] (1.005-1.025) Urine Protein (Negative) Urine Ketones (NEGATIVE) Urine Blood (0-5) [place]/ul Urine Nitrite (NEGATIVE) Urine Bilirubin (NEGATIVE) Urine Urobilinogen (0-1) mg/dL Ur Leukocyte Esterase (NEGATIVE) Urine WBC (Auto) (0-5) /HPF Urine RBC (Auto) (0-2) /HPF U Epithel Cells (Auto) (FEW) /HPF Urine Bacteria (Auto) (NEGATIVE) /HPF Urine Mucus (Auto) (NEGATIVE) /HPF Urine Culture Reflexed (NO) Urine Glucose (NEGATIVE) mg/dL - Progress Progress: improved Air Movement: good Progress Note: 08/18/19 09:54 ct abd/pelvis-no acute process. Blood Culture(s) Obtained: No Antibiotics given: No Counseled pt/family regarding: lab results, diagnosis, need for follow-up, rad results - Departure Departure Disposition: Home Clinical Impression: Suprapubic abdominal pain, Dysuria, HTN (hypertension) Condition: Stable Critical Care Time: No Referrals: ARSH LINDER MD [Primary Care Provider] - Additional Instructions: drink plenty of fluids. follow up with primary doctor for further management of blood pressure and possible referral to a boat tender. keep external mons pubis , perineal area dry. may apply over the counter antifungal and zinc oxide ointment externally as directed. Prescriptions: Phenazopyridine HCl 200 mg [Pyridium 200 mg] 200 mg PO TID #6 tablet
[2019-08-18] MEDS ORDERED: Zofran 4 MG/2 ML VIAL IV ONE (08:47)
[2019-08-18] MEDS ORDERED: Hydromorphone 1 mg/ml Ampule IV ONE (08:47)
[2019-08-18] MEDS ORDERED: Hydromorphone 1 mg/ml Ampule ONE (08:52)
[2019-08-18] MEDS ORDERED: Zofran 4 MG/2 ML VIAL ONE (08:52)
[2019-08-18] MEDS ORDERED: Sodium Chloride 0.9% 1000 ML 1,000 ML ONE (08:53)
[2019-08-18] MEDS ORDERED: Sodium Chloride 0.9% 1000 ML 1,000 ML IV SCH (09:00)
[2019-08-18 09:09] LABS: BASOPHIL % 0.4 % (0.0-0.4); Basophil (Absolute #) 0.03 (0-0.4); Eosinophil % 3.8 % (0.00-5.0); Eosinophil (Absolute #) 0.26 (0-0.5); Lymphocyte (Absolute #) 1.65 (1.0-4.6); Mean Cell Volume 93.4 fl (78-100); Mean Corpuscular Hemoglobin 29.8 pg (26-32); Mean Corpuscular Hgb Concent. 31.9 g/dl (32-36); Mean Platelet Volume 10.3 fl (6-9.5); Monocyte (Absolute #) 0.64 (0.0-1.3); Monocytes % 9.3 % (0.0-12.0); Neutrophil % 62.5 % (36.0-66.0); Platelet Count 204 K/mm3 (150-450); Red Blood Count 5.03 M/mm3 (4.1-5.4); Red Cell Distribution Width 14.9 % (11.5-14.0); White Blood Count 6.9 K/mm3 (4.0-10.5)
[2019-08-18 09:17] LABS: Appearance CLEAR (CLEAR); Bilirubin NEGATIVE (NEGATIVE); Blood NEGATIVE Ery/ul (0-5); Epithelial Cells RARE /HPF (FEW); Glucose NEGATIVE (NEGATIVE); Ketones NEGATIVE (NEGATIVE); Leukocyte Esterase NEGATIVE (NEGATIVE); Mucus SLIGHT /HPF (NEGATIVE); Nitrite NEGATIVE (NEGATIVE); Protein,Urine Dip 100 (Negative); Specific Gravity 1.012 (1.005-1.025); Urobilinogen NEGATIVE mg/dL (0-1); WBC 0-2 /HPF (0-5)
[2019-08-18 09:25] LABS: ALBUMIN 4.1 g/dL (3.5-5.0); ALKALINE PHOSPHATASE 67 U/L (38-126); AMYLASE 84 U/L (30-110); ANION GAP 10.4 MEQ/L (5-15); BLOOD UREA NITROGEN 20 mg/dL (7-17); CHLORIDE 104 mmol/L (98-107); Calcium 9.6 mg/dL (8.4-10.2); Carbon Dioxide 33 mmol/L (22-30); Creatinine 1 0.76 mg/dL (0.52-1.04); Glucose 111 mg/dL (74-106); LIPASE 111 U/L (23-300); Potassium 4.4 mmol/L (3.5-5.1); SGOT/AST 19 U/L (14-36); SGPT/ALT 18 U/L (0-35); SODIUM 143 mmol/L (137-145); Total Protein 7.8 g/dL (6.3-8.2)
--- NOTE | 2019-08-18 09:41 | XRAY ---
Indication: Low back pain 1 week. Multiple contiguous axial images obtained through the abdomen and pelvis without contrast as ordered. Comparison: None Lung bases demonstrates bibasilar atelectasis/scarring and small right lower lobe calcified granulomas. No infiltrate or effusion. Heart is not enlarged. Noncontrasted stomach and bowel loops appear nonobstructed. Normal appendix. There is mild diffuse scattered colonic fecal debris throughout. No free fluid/air. 2 cm left adrenal adenoma and previous cholecystectomy. Remaining liver, pancreas, spleen, right adrenal gland, kidneys, ureters, bladder, and uterus appear unremarkable for noncontrast exam. Mild scattered aortoiliac calcifications without AAA. Osseous structures intact with mild/moderate degenerative changes throughout the thoracolumbar spine greatest at the L4-L5 level. Impression: 1. Mild diffuse fecal stasis without obstruction, left adrenal adenoma, pulmonary calcified granulomas, and multilevel degenerative spondylosis. 2. Remaining CT abdomen/pelvis without contrast exam is negative. CT DI 15.19
[2019-08-18 09:53] VITALS: BP 151/88
[2019-08-18 09:54] VITALS: PULSE 91
[2019-08-18 10:00] VITALS: O2SAT 94
== END 2019-08-18 10:05 | disposition home or self-care (01) ==
LOC: ED 07:52
DX: R10.9 Unspecified abdominal pain (principal); R30.0 Dysuria; I10 Essential (primary) hypertension; M54.5 Low back pain; R10.2 Pelvic and perineal pain; Z79.899 Other long term (current) drug therapy
CPT/HCPCS: 36000; 36415; 74176; 80053; 81001; 82150; 83605; 83690; 85025; 96374; 99284; J1170; J2405

== ENCOUNTER 2019-11-04 17:40 | Emergency (ER) | payer MEDICARE ==
[2019-11-04 18:10] VITALS: BP 169/90; PULSE 91; O2SAT 93
--- NOTE | 2019-11-04 18:29 | ERPHSYRPT ---
- History of Present Illness Time Seen by Provider: 11/04/19 18:14 Source: patient Exam Limitations: no limitations Patient Subjective Stated Complaint: Pt has had a rash covering her top part of her body for the past week, the itching wakes her at night, Triage Nursing Assessment: Pt walked into the ER, red flat rash covering top part of body, pt denies any new foods, lotions, clothes, soaps, or anything, hypertensive, denies shortness of breath, rates pain as 5/10 Physician History: 63 years old female with history of COPD presented in the ER with 1 week history of itching on the arms, back and thighs. Itching is continuous without any significant aggravating or relieving factors. Denies any known triggering factor like food new medication, detergent/soap or any new pets. Denies any history of allergies in the past. No difficulty breathing or sore throat. Timing/Duration: week(s) (1) Severity: moderate Modifying Factors: Improves With: nothing Associated Symptoms: No nausea, No vomiting, No abdominal pain, No shortness of breath, No heartburn, No cough, No chest pain, No fever, No headaches Allergies/Adverse Reactions: codeine Allergy (Intermediate, Verified 11/04/19 18:10) rash, itching cefaclor [From Ceclor] Allergy (Mild, Verified 11/04/19 18:10) Rash Penicillins Allergy (Mild, Verified 11/04/19 18:10) Swelling bacitracin [From Neosporin ([id number])] Allergy (Verified 11/04/19 18:10) bacitracin zinc [From Neosporin ([id number])] Allergy (Verified 11/04/19 18: 10) levofloxacin [From Levaquin] Allergy (Verified 11/04/19 18:10) neomycin sulfate [From Neosporin ([id number])] Allergy (Verified 11/04/19 18: 10) polymyxin B [From Neosporin ([id number])] Allergy (Verified 11/04/19 18:10) Home Medications: Bupropion HCl 150 mg Sr [Wellbutrin SR 150 MG] 150 mg PO BID 03/05/14 [ History] Ropinirole HCl [Requip] 2 mg PO TID 03/05/14 [History] Famotidine [Pepcid] 40 mg PO HS 11/23/16 [History] Mirtazapine [Remeron] 15 mg PO HS 11/23/16 [History] Naproxen [Naprosyn] 500 mg PO BID PRN 11/23/16 [History] Budesonide/Formoterol Fumarate [Symbicort 160-4.5 Mcg Inhaler] 1 inh PO UD 04/29 [History] Tiotropium [place] [Spiriva Respimat] 1 inh PO UD 04/29/18 [History] Alprazolam [Xanax] 0.25 mg PO TID 08/18/19 [History] Zolpidem Tartrate [Ambien] 5 mg PO HS 08/18/19 [History] Hx Tetanus, Diphtheria Vaccination/Date Given: Yes Hx Influenza Vaccination/Date Given: No Hx Pneumococcal Vaccination/Date Given: No - Review of Systems Constitutional: No Symptoms Eyes: No Symptoms Ears, Nose, & Throat: No Symptoms Respiratory: No Symptoms Cardiac: No Symptoms Abdominal/Gastrointestinal: No Symptoms Musculoskeletal: No Symptoms Skin: Pruritis Neurological: No Symptoms Psychological: No Symptoms Endocrine: No Symptoms - Past Medical History Pertinent Past Medical History: Yes Neurological History: No Pertinent History ENT History: No Pertinent History Cardiac History: No Pertinent History Respiratory History: COPD, Emphysema Endocrine Medical History: No Pertinent History Musculoskeletal History: Arthritis, Fibromyalgia GI Medical History: No Pertinent History History: Other Psycho-Social History: No Pertinent History Female Reproductive Disorders: No Pertinent History Other Medical History: leaky bladder - Past Surgical History Past Surgical History: Yes Neuro Surgical History: No Pertinent History Cardiac: No Pertinent History Respiratory: No Pertinent History Gastrointestinal: Cholecystectomy Genitourinary: No Pertinent History Musculoskeletal: No Pertinent History Female Surgical History: No Pertinent History, Tubal Ligation - Social History Smoking Status: Current every day smoker How long have you smoked: 20 YEARS Exposure to second hand smoke: Yes Drug Use: none Patient Lives Alone: No - Female History Hx Now: No - Nursing Vital Signs Nursing Vital Signs: Initial Vital Signs Temperature 98.5 F 11/04/19 17:57 Pulse Rate 91 H 11/04/19 17:57 Blood Pressure 169/90 11/04/19 17:57 O2 Sat by Pulse Oximetry 93 L 11/04/19 17:57 Pain Scale Pain Intensity 5 - Physical Exam General Appearance: no apparent distress Eye Exam: PERRL/EOMI, eyes nml inspection Ears, Nose, Throat Exam: normal ENT inspection Neck Exam: normal inspection Respiratory Exam: normal breath sounds, lungs clear Cardiovascular Exam: regular rate/rhythm, normal heart sounds Gastrointestinal/Abdomen Exam: soft Back Exam: normal inspection Extremity Exam: normal inspection Neurologic Exam: alert, 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, cooperative, 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 Skin Exam: rash, other (Multiple areas on arms, thighs, back with itch matt and few wheals) SpO2 Interpretation: normal SpO2: 93 O2 Delivery: Room Air - Course Nursing assessment & vital signs reviewed: Yes Ordered Tests: Medication Summary Discontinued Medications Generic Name Dose Route Start Last Admin Trade Name Freq PRN Reason Stop Dose Admin Diphenhydramine HCl 25 mg 11/04/19 18:23 11/04/19 18:47 Benadryl 50 Mg/Ml IM 11/04/19 18:24 25 mg STAT ONE Administration Diphenhydramine HCl Confirm 11/04/19 18:44 Benadryl 50 Mg/Ml Administered 11/04/19 18:45 Dose 50 mg .ROUTE .STK-MED ONE Methylprednisolone Sodium Succinate 125 mg 11/04/19 18:23 11/04/19 18:47 Solu-Medrol 125 Mg IM 11/04/19 18:24 125 mg STAT ONE Administration Methylprednisolone Sodium Succinate Confirm 11/04/19 18:44 Solu-Medrol 125 Mg Administered 11/04/19 18:45 Dose 125 mg .ROUTE .STK-MED ONE - Progress Progress: improved Progress Note: 11/04/19 she is given Solu-Medrol and Benadryl, on reevaluation feeling better. Recommended continuing steroids and Benadryl to go home and outpatient follow-up. Does not have any difficulty breathing or chest tightness. Will for discharge. Symptoms of Worsening Needing Return to ER Which He Seems Understanding. - Departure Departure Disposition: Home Clinical Impression: Pruritus Condition: Stable Critical Care Time: No Referrals: ARSH LINDER MD [Primary Care Provider] - Follow Up with PCP/3 days Instructions: Adverse Drug Reactions, Adult (DC) Additional Instructions: Follow-up with primary care physician for reevaluation. Return to ER for any worsening like scratchiness/tightness in the throat or chest/difficulty breathing. Prescriptions: Diphenhydramine HCl 25 mg [Benadryl 25 mg Capsule] 25 mg PO Q4H PRN PRN # 20 capsule PRN Reason: Itching Famotidine 20 mg [Pepcid 20 MG] 20 mg PO BID #10 tablet Prednisone 50 mg PO DAILY #5 tablet
[2019-11-04] MEDS ORDERED: BENADRYL 50 MG/ML ONE (18:44)
[2019-11-04] MEDS ORDERED: solu-MEDROL 125 MG ONE (18:44)
[2019-11-04] MEDS: BENADRYL 50 MG/ML IM ONE (18:47)
[2019-11-04] MEDS: solu-MEDROL 125 MG IM ONE (18:47)
== END 2019-11-04 19:07 | disposition home or self-care (01) ==
LOC: ED 17:40
DX: L29.9 Pruritus, unspecified (principal); J44.9 Chronic obstructive pulmonary disease, unspecified; Z79.899 Other long term (current) drug therapy
CPT/HCPCS: 96372; 99283; J1200; J2930

== ENCOUNTER 2020-03-17 23:36 | Emergency (ER) | payer MEDICARE ==
--- NOTE | 2020-03-17 23:42 | ERPHSYRPT ---
- History of Present Illness Time Seen by Provider: 03/17/20 23:42 Source: patient Exam Limitations: clinical condition Physician History: Is a 64-year-old obese white female who continues to smoke cigarettes and has a history of COPD and asthma. She presents with worsening shortness of breath over the last 2 to 3 days. Patient denies fever. She has a mild cough. She denies chest pain. She has no abdominal pain. She denies nausea vomiting diarrhea. She has not been exposed anyone that she is aware of who is tested positive for the COVID-19 virus. Patient is not on home oxygen therapy but was prescribed it at one time. Timing/Duration: day(s) (2 to 3 days) Activities at Onset: none Severity of Dyspnea-Max: moderate Severity of Dyspnea-Current: moderate Possible Cause: occasional episodes Modifying Factors: Improves With: albuterol inhaler, albuterol nebulizer Associated Symptoms: cough (Mild), No chest pain/discomfort, No hemoptysis, No calf pain, No leg swelling Allergies/Adverse Reactions: codeine Allergy (Intermediate, Verified 11/04/19 18:10) rash, itching cefaclor [From Ceclor] Allergy (Mild, Verified 11/04/19 18:10) Rash Penicillins Allergy (Mild, Verified 11/04/19 18:10) Swelling bacitracin [From Neosporin ([id number])] Allergy (Verified 11/04/19 18:10) bacitracin zinc [From Neosporin ([id number])] Allergy (Verified 11/04/19 18:10) levofloxacin [From Levaquin] Allergy (Verified 11/04/19 18:10) neomycin sulfate [From Neosporin ([id number])] Allergy (Verified 11/04/19 18:10) polymyxin B [From Neosporin ([id number])] Allergy (Verified 11/04/19 18:10) Home Medications: Bupropion HCl 150 mg Sr [Wellbutrin SR 150 MG] 150 mg PO BID 03/05/14 [History] Ropinirole HCl [Requip] 2 mg PO TID 03/05/14 [History] Famotidine [Pepcid] 40 mg PO HS 11/23/16 [History] Mirtazapine [Remeron] 15 mg PO HS 11/23/16 [History] Naproxen [Naprosyn] 500 mg PO BID PRN 11/23/16 [History] Budesonide/Formoterol Fumarate [Symbicort 160-4.5 Mcg Inhaler] 1 inh PO UD 04/29/18 [History] Tiotropium [place] [Spiriva Respimat] 1 inh PO UD 04/29/18 [History] Alprazolam [Xanax] 0.25 mg PO TID 08/18/19 [History] Zolpidem Tartrate [Ambien] 5 mg PO HS 08/18/19 [History] Hx Tetanus, Diphtheria Vaccination/Date Given: Yes Hx Influenza Vaccination/Date Given: No Hx Pneumococcal Vaccination/Date Given: No Travel Risk - International Travel Have you traveled outside of the country in past 3 weeks: No - Coronavirus Screening Are you exhibiting any of the following symptoms?: Yes Symptoms: Shortness of Breath Close contact with a COVID-19 positive Pt in past 14-21 Days: No - Review of Systems Constitutional: No Symptoms Eyes: No Symptoms Ears, Nose, & Throat: No Symptoms Respiratory: Cough, Dyspnea Cardiac: No Symptoms Abdominal/Gastrointestinal: No Symptoms Genitourinary Symptoms: No Symptoms Musculoskeletal: No Symptoms Skin: No Symptoms Neurological: No Symptoms Psychological: No Symptoms Endocrine: No Symptoms Hematologic/Lymphatic: No Symptoms Immunological/Allergic: No Symptoms All Other Systems: Reviewed and Negative - Past Medical History Pertinent Past Medical History: Yes Neurological History: No Pertinent History ENT History: No Pertinent History Cardiac History: No Pertinent History Respiratory History: COPD, Emphysema Endocrine Medical History: No Pertinent History Musculoskeletal History: Arthritis, Fibromyalgia GI Medical History: No Pertinent History History: Other Psycho-Social History: No Pertinent History Female Reproductive Disorders: No Pertinent History Other Medical History: leaky bladder - Past Surgical History Past Surgical History: Yes Neuro Surgical History: No Pertinent History Cardiac: No Pertinent History Respiratory: No Pertinent History Gastrointestinal: Cholecystectomy Genitourinary: No Pertinent History Musculoskeletal: No Pertinent History Female Surgical History: No Pertinent History, Tubal Ligation - Social History Smoking Status: Current every day smoker How long have you smoked: 20 YEARS Exposure to second hand smoke: Yes Drug Use: none Patient Lives Alone: No - Nursing Vital Signs Nursing Vital Signs: Initial Vital Signs Temperature 98.0 F 03/17/20 23:47 Pulse Rate 98 H 03/17/20 23:47 Respiratory Rate 26 H 03/17/20 23:47 Blood Pressure 188/115 03/17/20 23:47 O2 Sat by Pulse Oximetry 94 L 03/17/20 23:47 Pain Scale Pain Intensity 8 - Physical Exam General Appearance: moderate distress, alert, anxiety, obese Eye Exam: PERRL/EOMI, eyes nml inspection Ears, Nose, Throat Exam: hearing grossly normal, normal ENT inspection, normal pharynx Neck Exam: normal inspection, non-tender, supple, full range of motion Respiratory Exam: normal breath sounds, lungs clear, airway intact, No chest tenderness, No respiratory distress Cardiovascular/Chest Exam: normal heart sounds, regular rate/rhythm Abdominal/Gastrointestinal Exam: soft, normal bowel sounds, No tenderness Rectal Exam: not done Extremity Exam: non-tender, normal range of motion, normal inspection, no pedal edema Neurologic Exam: alert, 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, cooperative, 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 Comparison EKG is dated 11/30/2018. There is resolution of sinus tachycardia. The remainder of the EKG has stayed the same.) Ordered Tests: Active Orders 24 hr Category Date Time Status Cremator STAT Care 03/17/20 23:49 Active EKG-ER Only STAT Care 03/17/20 23:48 Active IV Insertion STAT Care 03/17/20 23:48 Active Pulse Oximetry (ED) STAT Care 03/17/20 23:48 Active CHEST 1 VIEW (PORTABLE) Stat Exams 03/18/20 00:25 Taken BLOOD CULTURE Stat Lab 03/17/20 23:48 Received CBC W DIFF Stat Lab 03/17/20 00:05 Completed CMP Stat Lab 03/17/20 00:05 Completed Lactic Acid Stat Lab 03/17/20 23:48 Completed NT PRO BNP Stat Lab 03/17/20 00:05 Completed PROTIME WITH INR Stat Lab 03/17/20 00:05 Completed TROPONIN Q3H Lab 03/17/20 23:48 Completed TROPONIN Q3H Lab 03/18/20 02:48 Ordered TROPONIN Q3H Lab 03/18/20 05:48 Ordered TROPONIN Q3H Lab 03/18/20 08:48 Ordered TROPONIN Q3H Lab 03/18/20 11:48 Ordered Respiratory Therapy Assessment DAILY RT 03/18/20 00:22 Active Medication Summary Discontinued Medications Generic Name Dose Route Start Last Admin Trade Name Freq PRN Reason Stop Dose Admin Albuterol/Ipratropium 3 ml 03/17/20 23:48 03/18/20 00:22 Duoneb 0.5-3 Mg/3 Ml Neb IH 03/17/20 23:49 3 ml STAT ONE Administration Albuterol/Ipratropium Confirm 03/18/20 00:18 Duoneb 0.5-3 Mg/3 Ml Neb Administered 03/18/20 00:19 Dose 3 ml IH .STK-MED ONE Methylprednisolone Sodium Succinate 125 mg 03/17/20 23:48 03/18/20 00:06 Solu-Medrol 125 Mg IV 03/17/20 23:49 125 mg STAT ONE Administration Methylprednisolone Sodium Succinate Confirm 03/18/20 00:05 Solu-Medrol 125 Mg Administered 03/18/20 00:06 Dose 125 mg .ROUTE .STK-MED ONE Lab/Rad Data: Laboratory Result Diagrams 03/17/20 00:05 03/17/20 00:05 Laboratory Results 03/18/20 03/17/20 03/17/20 Range/Units 00:30 23:48 00:05 WBC (4.0-10.5) K/mm3 RBC (4.1-5.4) M/mm3 Hgb (12.0-16.0) gm/dl Hct (35-47) % MCV (78-100) fl MCH (26-32) pg MCHC (32-36) g/dl RDW (11.5-14.0) % Plt Count (150-450) K/mm3 MPV (7.5-11.0) fl Gran % (36.0-66.0) % Eos # (Auto) (0-0.5) Absolute Lymphs (auto) (1.0-4.6) Absolute Monos (auto) (0.0-1.3) Lymphocytes % (24.0-44.0) % Monocytes % (0.0-12.0) % Eosinophils % (0.00-5.0) % Basophils % (0.0-0.4) % Absolute Granulocytes (1.4-6.9) Basophils # (0-0.4) PT 12.1 (9.95-12.35) SECONDS INR 1.07 (0.8-3.0) Sodium (137-145) mmol/L Potassium (3.5-5.1) mmol/L Chloride (98-107) mmol/L Carbon Dioxide (22-30) mmol/L Anion Gap (5-15) MEQ/L BUN (7-17) mg/dL Creatinine (0.52-1.04) mg/dL Estimated GFR ML/MIN Glucose (74-106) mg/dL Lactic Acid 1.4 (0.4-2.0) Calcium (8.4-10.2) mg/dL Total Bilirubin (0.2-1.3) mg/dL AST (14-36) U/L ALT (0-35) U/L Alkaline Phosphatase (38-126) U/L Troponin I < 0.012 (0.000-0.034) ng/mL NT-Pro-B Natriuret Pep (0-900) pg/mL Serum Total Protein (6.3-8.2) g/dL Albumin (3.5-5.0) g/dL 03/17/20 03/17/20 Range/Units 00:05 00:05 WBC 9.4 (4.0-10.5) K/mm3 RBC 5.48 H (4.1-5.4) M/mm3 Hgb 16.4 H (12.0-16.0) gm/dl Hct 50.9 H (35-47) % MCV 92.9 (78-100) fl MCH 29.9 (26-32) pg MCHC 32.2 (32-36) g/dl RDW 15.5 H (11.5-14.0) % Plt Count 197 (150-450) K/mm3 MPV 10.8 (7.5-11.0) fl Gran % 66.7 H (36.0-66.0) % Eos # (Auto) 0.23 (0-0.5) Absolute Lymphs (auto) 2.09 (1.0-4.6) Absolute Monos (auto) 0.77 (0.0-1.3) Lymphocytes % 22.3 L (24.0-44.0) % Monocytes % 8.2 (0.0-12.0) % Eosinophils % 2.5 (0.00-5.0) % Basophils % 0.3 (0.0-0.4) % Absolute Granulocytes 6.26 (1.4-6.9) Basophils # 0.03 (0-0.4) PT (9.95-12.35) SECONDS INR (0.8-3.0) Sodium 141 (137-145) mmol/L Potassium 4.5 (3.5-5.1) mmol/L Chloride 107 (98-107) mmol/L Carbon Dioxide 27 (22-30) mmol/L Anion Gap 10.9 (5-15) MEQ/L BUN 30 H (7-17) mg/dL Creatinine 0.97 (0.52-1.04) mg/dL Estimated GFR > 60.0 ML/MIN Glucose 137 H (74-106) mg/dL Lactic Acid (0.4-2.0) Calcium 9.1 (8.4-10.2) mg/dL Total Bilirubin 0.30 (0.2-1.3) mg/dL AST 22 (14-36) U/L ALT 19 (0-35) U/L Alkaline Phosphatase 71 (38-126) U/L Troponin I (0.000-0.034) ng/mL NT-Pro-B Natriuret Pep 70.2 (0-900) pg/mL Serum Total Protein 7.3 (6.3-8.2) g/dL Albumin 3.8 (3.5-5.0) g/dL - Progress Progress: improved Air Movement: good Progress Note: 03/18/20 00:57 Chest x-ray reveals no evidence of acute pulmonary process. 03/18/20 01:01 Patient states that she feels 10 times better and is ready to go home. She has no chest pain. Her shortness of breath is significantly improved. Blood Culture(s) Obtained: Yes Antibiotics given: No Counseled pt/family regarding: lab results, diagnosis, need for follow-up, rad results - Departure Departure Disposition: Home Clinical Impression: COPD exacerbation Condition: Stable Critical Care Time: No Referrals: ARSH LINDER MD [Primary Care Provider] - Instructions: Chronic Obstructive Pulmonary Disease Additional Instructions: Fill your prednisone prescription and take as directed. Continue your other medication as prescribed. Call your primary care doctor today to make arrangements for a follow-up appointment and to discuss the use of home oxygen therapy. Stop smoking cigarettes Prescriptions: Prednisone 10 mg [Deltasone 10 mg] 10 mg PO TID #12 tablet
[2020-03-17] MEDS ORDERED: DUONEB 0.5-3 MG/3 ml Neb IH ONE (23:48)
[2020-03-17] MEDS ORDERED: solu-MEDROL 125 MG IV ONE (23:48)
[2020-03-18] MEDS ORDERED: solu-MEDROL 125 MG ONE ×2 (00:05→01:44)
[2020-03-18 00:12] LABS: Absolute Neutrophil Ct (ANC) 6.26 (1.4-6.9); BASOPHIL % 0.3 % (0.0-0.4); Basophil (Absolute #) 0.03 (0-0.4); Eosinophil % 2.5 % (0.00-5.0); Eosinophil (Absolute #) 0.23 (0-0.5); Hematocrit 50.9 % (35-47); Hemoglobin 16.4 gm/dl (12.0-16.0); Lymphocyte (Absolute #) 2.09 (1.0-4.6); Lymphocytes % 22.3 % (24.0-44.0); Mean Cell Volume 92.9 fl (78-100); Mean Corpuscular Hemoglobin 29.9 pg (26-32); Mean Corpuscular Hgb Concent. 32.2 g/dl (32-36); Mean Platelet Volume 10.8 fl (7.5-11.0); Monocyte (Absolute #) 0.77 (0.0-1.3); Monocytes % 8.2 % (0.0-12.0); Neutrophil % 66.7 % (36.0-66.0); Platelet Count 197 K/mm3 (150-450); Red Blood Count 5.48 M/mm3 (4.1-5.4); Red Cell Distribution Width 15.5 % (11.5-14.0); White Blood Count 9.4 K/mm3 (4.0-10.5)
[2020-03-18] MEDS ORDERED: DUONEB 0.5-3 MG/3 ml Neb IH ONE (00:18)
[2020-03-18 00:19] LABS: INR 1.07 (0.8-3.0); PROTIME 12.1 SECONDS (9.95-12.35)
[2020-03-18 00:32] LABS: ALBUMIN 3.8 g/dL (3.5-5.0); ALKALINE PHOSPHATASE 71 U/L (38-126); ANION GAP 10.9 MEQ/L (5-15); BLOOD UREA NITROGEN 30 mg/dL (7-17); CHLORIDE 107 mmol/L (98-107); Calcium 9.1 mg/dL (8.4-10.2); Carbon Dioxide 27 mmol/L (22-30); Creatinine 1 0.97 mg/dL (0.52-1.04); Glucose 137 mg/dL (74-106); NT PRO BNP 70.2 pg/mL (0-900); Potassium 4.5 mmol/L (3.5-5.1); SGOT/AST 22 U/L (14-36); SGPT/ALT 19 U/L (0-35); SODIUM 141 mmol/L (137-145); Total Protein 7.3 g/dL (6.3-8.2)
[2020-03-18] MEDS ORDERED: solu-MEDROL 125 MG IV ONE (01:35)
[2020-03-18 02:23] VITALS: BP 188/90; PULSE 94; O2SAT 89
--- NOTE | 2020-03-18 08:42 | XRAY ---
Indication: Short of breath. Comparison: November 29, 2018. Portable apical lordotic chest again demonstrates lingula atelectasis/scarring. Remaining heart, lungs, and bony thorax unremarkable.
== END 2020-03-18 02:18 | disposition home or self-care (01) ==
LOC: ED 23:36
DX: J44.1 Chronic obstructive pulmonary disease with (acute) exacerbation (principal); R06.00 Dyspnea, unspecified; Z79.899 Other long term (current) drug therapy; F17.210 Nicotine dependence, cigarettes, uncomplicated; R05 Cough; E66.9 Obesity, unspecified
CPT/HCPCS: 36000; 36415; 71045; 80053; 83605; 83880; 84484; 85025; 85610; 87040; 93005; 93041; 94640; 94760; 96374; 96376; 99284; J2930; A9270-GY

== ENCOUNTER 2020-04-01 10:43 | Emergency (ER) | payer MEDICARE ==
--- NOTE | 2020-04-01 10:55 | ERPHSYRPT ---
- History of Present Illness Time Seen by Provider: 04/01/20 10:55 Source: patient Exam Limitations: no limitations Patient Subjective Stated Complaint: Pt states "I think my COPD is acting up again. I am having trouble breathing." Triage Nursing Assessment: Pt presented alert and orietned X 3, skin pwd. PT ambulates with an upright steady gait, able to speak in four to five word sentences pt tachypneic, with occasional cough, coughing up thick yellow phlegm. Physician History: This is a 64-year-old obese white female who has COPD, asthma, anxiety, and fibromyalgia and continues to smoke cigarettes daily and presents with 2 to 3- day history of worsening shortness of breath. She does not have significant chest pain. Her primary doctor is Dr. Linder. 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 Patient was seen here on 03/17/2024 the same symptoms. She was diagnosed with COPD exacerbation. Patient was sent home with 4-day prescription of steroids. Patient did not follow-up with either her primary care doctor or police worker as instructed. Timing/Duration: day(s) (2-3) Activities at Onset: activity Severity of Dyspnea-Max: moderate Severity of Dyspnea-Current: moderate Possible Cause: frequent episodes Associated Symptoms: anxiety, cough, wheezing Allergies/Adverse Reactions: codeine Allergy (Intermediate, Verified 03/18/20 02:23) rash, itching cefaclor [From Ceclor] Allergy (Mild, Verified 03/18/20 02:23) Rash Penicillins Allergy (Mild, Verified 03/18/20 02:23) Swelling bacitracin [From Neosporin ([id number])] Allergy (Verified 03/18/20 02:23) bacitracin zinc [From Neosporin ([id number])] Allergy (Verified 03/18/20 02:23) levofloxacin [From Levaquin] Allergy (Verified 03/18/20 02:23) neomycin sulfate [From Neosporin ([id number])] Allergy (Verified 03/18/20 02:23) polymyxin B [From Neosporin ([id number]-[id number])] Allergy (Verified 03/18/20 02:23) Home Medications: Bupropion HCl 150 mg Sr [Wellbutrin SR 150 MG] 150 mg PO BID 03/05/14 [History] Ropinirole HCl [Requip] 2 mg PO TID 03/05/14 [History] Famotidine [Pepcid] 40 mg PO HS 11/23/16 [History] Mirtazapine [Remeron] 15 mg PO HS 11/23/16 [History] Naproxen [Naprosyn] 500 mg PO BID PRN 11/23/16 [History] Budesonide/Formoterol Fumarate [Symbicort 160-4.5 Mcg Inhaler] 1 inh PO UD 04/29/18 [History] Tiotropium [place] [Spiriva Respimat] 1 inh PO UD 04/29/18 [History] Alprazolam [Xanax] 0.25 mg PO TID 08/18/19 [History] Zolpidem Tartrate [Ambien] 5 mg PO HS 08/18/19 [History] Hx Tetanus, Diphtheria Vaccination/Date Given: Yes Hx Influenza Vaccination/Date Given: No Hx Pneumococcal Vaccination/Date Given: No Immunizations Up to Date: Yes Travel Risk - International Travel Have you traveled outside of the country in past 3 weeks: No - Coronavirus Screening Are you exhibiting any of the following symptoms?: Yes Symptoms: Shortness of Breath Close contact with a COVID-19 positive Pt in past 14-21 Days: No - Review of Systems Constitutional: No Symptoms Eyes: No Symptoms Ears, Nose, & Throat: No Symptoms Respiratory: Dyspnea Cardiac: No Symptoms, No Chest Pain Abdominal/Gastrointestinal: No Symptoms Genitourinary Symptoms: No Symptoms Musculoskeletal: No Symptoms Skin: No Symptoms Neurological: No Symptoms Psychological: No Symptoms Endocrine: No Symptoms Hematologic/Lymphatic: No Symptoms Immunological/Allergic: No Symptoms All Other Systems: Reviewed and Negative - Past Medical History Pertinent Past Medical History: Yes Neurological History: No Pertinent History ENT History: No Pertinent History Cardiac History: No Pertinent History Respiratory History: COPD, Emphysema Endocrine Medical History: No Pertinent History Musculoskeletal History: Arthritis, Fibromyalgia GI Medical History: No Pertinent History History: Other Psycho-Social History: No Pertinent History Female Reproductive Disorders: No Pertinent History Other Medical History: leaky bladder - Past Surgical History Past Surgical History: Yes Neuro Surgical History: No Pertinent History Cardiac: No Pertinent History Respiratory: No Pertinent History Gastrointestinal: Cholecystectomy Genitourinary: No Pertinent History Musculoskeletal: No Pertinent History Female Surgical History: No Pertinent History, Tubal Ligation - Social History Smoking Status: Current every day smoker How long have you smoked: years Exposure to second hand smoke: Yes Drug Use: none Patient Lives Alone: No - Female History Hx Now: No - Nursing Vital Signs Nursing Vital Signs: Initial Vital Signs Temperature 97.5 F 04/01/20 10:44 Pulse Rate 93 H 04/01/20 10:44 Respiratory Rate 26 H 04/01/20 10:44 Blood Pressure 182/90 04/01/20 10:44 O2 Sat by Pulse Oximetry 94 L 04/01/20 10:44 Pain Scale Pain Intensity 8 - Physical Exam General Appearance: mild distress, alert, anxiety, obese Eye Exam: PERRL/EOMI, eyes nml inspection Ears, Nose, Throat Exam: hearing grossly normal Neck Exam: normal inspection, non-tender, supple, full range of motion Respiratory Exam: wheezing (Mild bilateral expiratory), No chest tenderness, No respiratory distress Cardiovascular/Chest Exam: normal heart sounds, regular rate/rhythm, normal peripheral pulses Abdominal/Gastrointestinal Exam: soft, normal bowel sounds, No tenderness Rectal Exam: not done Extremity Exam: non-tender, normal range of motion, pedal edema (Mild bilateral pedal and ankle edema) Neurologic Exam: alert, 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, cooperative, wrapper selector II-XII nml as tested, normal mood/affect, nml cerebellar function, nml station & gait, sensation nml Skin Exam: normal color, warm, dry Lymphatic Exam: No adenopathy SpO2 Interpretation: borderline oxygenation SpO2: 94 O2 Delivery: Room Air - Course Nursing assessment & vital signs reviewed: Yes EKG Interpreted by Me: RATE (83), Sinus Rhythm, NORMAL AXIS, NORMAL INTERVALS, NORMAL QRS, Right Bundle Branch Block, Other (No change from the comparison EKG dated 03/17/2020) Ordered Tests: Active Orders 24 hr Category Date Time Status Yarn Cleaner STAT Care 04/01/20 11:11 Active EKG-ER Only STAT Care 04/01/20 11:10 Active IV Insertion STAT Care 04/01/20 11:10 Active CHEST 1 VIEW (PORTABLE) Stat Exams 04/01/20 11:11 Completed CBC W DIFF Stat Lab 04/01/20 11:10 Completed CMP Stat Lab 04/01/20 11:10 Completed D-DIMER QUANTITATIVE Stat Lab 04/01/20 11:10 Completed NT PRO BNP Stat Lab 04/01/20 11:10 Completed TROPONIN Q3H Lab 04/01/20 11:10 Completed TROPONIN Q3H Lab 04/01/20 14:15 Ordered TROPONIN Q3H Lab 04/01/20 17:15 Ordered TROPONIN Q3H Lab 04/01/20 20:15 Ordered TROPONIN Q3H Lab 04/01/20 23:15 Ordered Peak Expiratory Flow Rate ONCE RT 04/01/20 11:22 Active Respiratory Therapy Assessment DAILY RT 04/01/20 11:22 Active Medication Summary Discontinued Medications Generic Name Dose Route Start Last Admin Trade Name Freq PRN Reason Stop Dose Admin Albuterol/Ipratropium 3 ml 04/01/20 11:10 04/01/20 11:18 Duoneb 0.5-3 Mg/3 Ml Neb IH 04/01/20 11:11 3 ml STAT ONE Administration Albuterol/Ipratropium Confirm 04/01/20 11:13 Duoneb 0.5-3 Mg/3 Ml Neb Administered 04/01/20 11:14 Dose 3 ml IH .STK-MED ONE Methylprednisolone Sodium Succinate 125 mg 04/01/20 11:10 04/01/20 11:44 Solu-Medrol 125 Mg IV 04/01/20 11:11 125 mg STAT ONE Administration Methylprednisolone Sodium Succinate Confirm 04/01/20 11:41 Solu-Medrol 125 Mg Administered 04/01/20 11:42 Dose 125 mg .ROUTE .STK-MED ONE Lab/Rad Data: Laboratory Result Diagrams 04/01/20 11:10 04/01/20 11:10 Laboratory Results 04/01/20 04/01/20 04/01/20 Range/Units 11:10 11:10 11:10 WBC (4.0-10.5) K/mm3 RBC (4.1-5.4) M/mm3 Hgb (12.0-16.0) gm/dl Hct (35-47) % MCV (78-100) fl MCH (26-32) pg MCHC (32-36) g/dl RDW (11.5-14.0) % Plt Count (150-450) K/mm3 MPV (7.5-11.0) fl Gran % (36.0-66.0) % Eos # (Auto) (0-0.5) Absolute Lymphs (auto) (1.0-4.6) Absolute Monos (auto) (0.0-1.3) Lymphocytes % (24.0-44.0) % Monocytes % (0.0-12.0) % Eosinophils % (0.00-5.0) % Basophils % (0.0-0.4) % Absolute Granulocytes (1.4-6.9) Basophils # (0-0.4) D-Dimer 349 (215-500) ng/mL Sodium 141 (137-145) mmol/L Potassium 3.6 (3.5-5.1) mmol/L Chloride 106 (98-107) mmol/L Carbon Dioxide 28 (22-30) mmol/L Anion Gap 10.0 (5-15) MEQ/L BUN 23 H (7-17) mg/dL Creatinine 0.70 (0.52-1.04) mg/dL Estimated GFR > 60.0 ML/MIN Glucose 142 H (74-106) mg/dL Calcium 9.0 (8.4-10.2) mg/dL Total Bilirubin 0.40 (0.2-1.3) mg/dL AST 18 (14-36) U/L ALT 16 (0-35) U/L Alkaline Phosphatase 59 (38-126) U/L Troponin I < 0.012 (0.000-0.034) ng/mL NT-Pro-B Natriuret Pep 84.1 (0-900) pg/mL Serum Total Protein 6.8 (6.3-8.2) g/dL Albumin 3.6 (3.5-5.0) g/dL 04/01/20 Range/Units 11:10 WBC 8.3 (4.0-10.5) K/mm3 RBC 5.08 (4.1-5.4) M/mm3 Hgb 15.0 (12.0-16.0) gm/dl Hct 47.7 H (35-47) % MCV 93.9 (78-100) fl MCH 29.5 (26-32) pg MCHC 31.4 L (32-36) g/dl RDW 15.8 H (11.5-14.0) % Plt Count 179 (150-450) K/mm3 MPV 10.7 (7.5-11.0) fl Gran % 70.5 H (36.0-66.0) % Eos # (Auto) 0.21 (0-0.5) Absolute Lymphs (auto) 1.58 (1.0-4.6) Absolute Monos (auto) 0.61 (0.0-1.3) Lymphocytes % 19.2 L (24.0-44.0) % Monocytes % 7.4 (0.0-12.0) % Eosinophils % 2.5 (0.00-5.0) % Basophils % 0.4 (0.0-0.4) % Absolute Granulocytes 5.82 (1.4-6.9) Basophils # 0.03 (0-0.4) D-Dimer (215-500) ng/mL Sodium (137-145) mmol/L Potassium (3.5-5.1) mmol/L Chloride (98-107) mmol/L Carbon Dioxide (22-30) mmol/L Anion Gap (5-15) MEQ/L BUN (7-17) mg/dL Creatinine (0.52-1.04) mg/dL Estimated GFR ML/MIN Glucose (74-106) mg/dL Calcium (8.4-10.2) mg/dL Total Bilirubin (0.2-1.3) mg/dL AST (14-36) U/L ALT (0-35) U/L Alkaline Phosphatase (38-126) U/L Troponin I (0.000-0.034) ng/mL NT-Pro-B Natriuret Pep (0-900) pg/mL Serum Total Protein (6.3-8.2) g/dL Albumin (3.5-5.0) g/dL - Progress Progress: improved, re-examined Air Movement: good Progress Note: 04/01/20 12:17 Chest x-ray reveals no acute pulmonary process - Departure Departure Disposition: Home Clinical Impression: COPD exacerbation Condition: Stable Critical Care Time: No Referrals: ARSH LINDER MD [Primary Care Provider] - Instructions: Chronic Obstructive Pulmonary Disease Additional Instructions: Stop smoking cigarettes. Take your medication as prescribed. Call your primary care doctor and your police worker today to make arrangements for follow-up appointment for further management of your COPD. Prescriptions: Prednisone 10 mg [Deltasone 10 mg] 10 mg PO TID #12 tablet
[2020-04-01] MEDS ORDERED: solu-MEDROL 125 MG IV ONE (11:10)
[2020-04-01] MEDS ORDERED: DUONEB 0.5-3 MG/3 ml Neb IH ONE ×2 (11:10→11:13)
--- NOTE | 2020-04-01 11:28 | XRAY ---
Indication: Short of breath. Comparison: March 18, 2020. Portable chest unchanged again demonstrating lingula atelectasis/scarring. Remaining heart and and right lung normal. No new/acute findings.
[2020-04-01 11:30] LABS: Absolute Neutrophil Ct (ANC) 5.82 (1.4-6.9); BASOPHIL % 0.4 % (0.0-0.4); Basophil (Absolute #) 0.03 (0-0.4); Eosinophil % 2.5 % (0.00-5.0); Eosinophil (Absolute #) 0.21 (0-0.5); Hematocrit 47.7 % (35-47); Lymphocyte (Absolute #) 1.58 (1.0-4.6); Lymphocytes % 19.2 % (24.0-44.0); Mean Cell Volume 93.9 fl (78-100); Mean Corpuscular Hemoglobin 29.5 pg (26-32); Mean Corpuscular Hgb Concent. 31.4 g/dl (32-36); Mean Platelet Volume 10.7 fl (7.5-11.0); Monocyte (Absolute #) 0.61 (0.0-1.3); Monocytes % 7.4 % (0.0-12.0); Neutrophil % 70.5 % (36.0-66.0); Platelet Count 179 K/mm3 (150-450); Red Blood Count 5.08 M/mm3 (4.1-5.4); Red Cell Distribution Width 15.8 % (11.5-14.0); White Blood Count 8.3 K/mm3 (4.0-10.5)
[2020-04-01] MEDS ORDERED: solu-MEDROL 125 MG ONE (11:41)
[2020-04-01 11:56] LABS: ALBUMIN 3.6 g/dL (3.5-5.0); ALKALINE PHOSPHATASE 59 U/L (38-126); BLOOD UREA NITROGEN 23 mg/dL (7-17); CHLORIDE 106 mmol/L (98-107); Carbon Dioxide 28 mmol/L (22-30); Glucose 142 mg/dL (74-106); NT PRO BNP 84.1 pg/mL (0-900); Potassium 3.6 mmol/L (3.5-5.1); SGOT/AST 18 U/L (14-36); SGPT/ALT 16 U/L (0-35); SODIUM 141 mmol/L (137-145); Total Protein 6.8 g/dL (6.3-8.2)
[2020-04-01 12:21] VITALS: O2SAT 94
[2020-04-01 12:44] VITALS: BP 159/63; PULSE 89
== END 2020-04-01 12:44 | disposition home or self-care (01) ==
LOC: ED 10:43
DX: J44.1 Chronic obstructive pulmonary disease with (acute) exacerbation (principal); F41.9 Anxiety disorder, unspecified; M79.7 Fibromyalgia; Z79.899 Other long term (current) drug therapy
CPT/HCPCS: 36000; 36415; 71045; 80053; 83880; 84484; 85025; 85379; 93005; 93041; 94150; 94640; 96374; 99284; J2930; A9270-GY

== ENCOUNTER 2020-10-02 16:55 | Inpatient (IN) | payer MEDICARE ==
[2020-10-02] MEDS ORDERED: PERCOCET TABLET 5/325MG PO ONE (17:34)
[2020-10-02] MEDS ORDERED: Cyclobenzaprine 10 MG PO ONE (17:35)
[2020-10-02] MEDS ORDERED: PERCOCET TABLET 5/325MG ONE (17:51)
[2020-10-02] MEDS ORDERED: Cyclobenzaprine 10 MG ONE (17:52)
--- NOTE | 2020-10-02 18:09 | ERPHSYRPT ---
- History of Present Illness Time Seen by Provider: 10/02/20 16:57 Source: patient Exam Limitations: no limitations Patient Subjective Stated Complaint: Pt has chronic pain in her medial lower back Triage Nursing Assessment: Pt was brought to the ER by her brother in law, hypertensive, smoker, rates pain as 10/10, slight tenderness to medial lower back with palpatation, denies any injury, reports that it is a chronic pain that has flare ups Physician History: 64 years old female with history of COPD, tobacco abuse, chronic low back pain presented in the ER with 1 week history of progressive worsening low back pain moderate to severe intensity sharp in nature with minimal radiation to bilateral buttocks, without any associated numbness tingling or weakness of lower extremities. No loss of bowel or bladder control. Patient reports having this pain occasionally but usually goes away with Tylenol but this time it was not going away and she cannot take it anymore. Denies any fall trauma, pushing or pulling heavy stuff. Timing/Duration: week(s), intermittent, gradual onset, worse Method of Injury: unknown Quality: sharp Back Pain Location: lumbar spine, paraspinous muscles Back Pain Radiation: buttocks Severity of Pain-Max: severe Severity of Pain-Current: severe Modifying Factors: Improves With: immobilization, rest. Worsens With: movement Associated Symptoms: lower back pain, muscle spasms, No urinary incontinence, No loss of bowel control, No problems urinating, No numbness in legs/feet, No weakness, No sensory/motor loss Allergies/Adverse Reactions: codeine Allergy (Intermediate, Verified 10/02/20 17:09) rash, itching cefaclor [From Ceclor] Allergy (Mild, Verified 10/02/20 17:09) Rash Penicillins Allergy (Mild, Verified 10/02/20 17:09) Swelling bacitracin [From Neosporin ([id number])] Allergy (Verified 10/02/20 17:09) bacitracin zinc [From Neosporin ([id number])] Allergy (Verified 10/02/20 17:09) levofloxacin [From Levaquin] Allergy (Verified 10/02/20 17:09) neomycin sulfate [From Neosporin ([id number])] Allergy (Verified 10/02/20 17:09) polymyxin B [From Neosporin (sic-sbz-[id number])] Allergy (Verified 10/02/20 17:09) Home Medications: Ropinirole HCl [Requip] 2 mg PO TID 03/05/14 [History] Alprazolam [Xanax] 0.25 mg PO TID 08/18/19 [History] Hx Tetanus, Diphtheria Vaccination/Date Given: Yes Hx Influenza Vaccination/Date Given: No Hx Pneumococcal Vaccination/Date Given: No Travel Risk - International Travel Have you traveled outside of the country in past 3 weeks: No - Coronavirus Screening Are you exhibiting any of the following symptoms?: No Close contact with a COVID-19 positive Pt in past 14-21 Days: No - Review of Systems Constitutional: No Symptoms Eyes: No Symptoms Ears, Nose, & Throat: No Symptoms Respiratory: No Symptoms, Cough, Dyspnea Cardiac: No Symptoms Abdominal/Gastrointestinal: No Symptoms Genitourinary Symptoms: No Symptoms Skin: No Symptoms Neurological: No Symptoms Psychological: No Symptoms Endocrine: No Symptoms Hematologic/Lymphatic: No Symptoms Immunological/Allergic: No Symptoms - Past Medical History Pertinent Past Medical History: Yes Neurological History: No Pertinent History ENT History: No Pertinent History Cardiac History: No Pertinent History Respiratory History: COPD, Emphysema Endocrine Medical History: No Pertinent History Musculoskeletal History: Arthritis, Fibromyalgia GI Medical History: No Pertinent History History: Other Psycho-Social History: No Pertinent History Female Reproductive Disorders: No Pertinent History Other Medical History: leaky bladder - Past Surgical History Past Surgical History: Yes Neuro Surgical History: No Pertinent History Cardiac: No Pertinent History Respiratory: No Pertinent History Gastrointestinal: Cholecystectomy Genitourinary: No Pertinent History Musculoskeletal: No Pertinent History Female Surgical History: No Pertinent History, Tubal Ligation - Social History Smoking Status: Current every day smoker How long have you smoked: years Exposure to second hand smoke: Yes Drug Use: none Patient Lives Alone: No - Female History Hx Now: No - Nursing Vital Signs Nursing Vital Signs: Initial Vital Signs Temperature 98.0 F 10/02/20 17:02 Pulse Rate 96 H 10/02/20 17:02 Blood Pressure 186/81 10/02/20 17:02 O2 Sat by Pulse Oximetry 94 L 10/02/20 17:02 Pain Scale Pain Intensity [Posterior 10 Medial Distal Back] Pain Intensity 6 - Physical Exam General Appearance: no apparent distress Eye Exam: eyes nml inspection Ears, Nose, Throat Exam: normal ENT inspection Neck Exam: normal inspection, supple, full range of motion Respiratory Exam: wheezing, No chest tenderness Cardiovascular Exam: regular rate/rhythm, normal heart sounds Gastrointestinal Exam: soft, normal bowel sounds, No tenderness Back Exam: normal inspection, vertebral tenderness (Lumbar), decreased range of motion, muscle spasm, point tenderness (Lumbar paraspinal), No normal range of motion Extremity Exam: normal inspection, normal range of motion, pelvis stable Neurologic Exam: alert, 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, cooperative, injection molding engineer II-XII nml as tested, normal mood/affect, nml station & gait, sensation nml Skin Exam: normal color, warm SpO2 Interpretation: normal SpO2: 94 O2 Delivery: Room Air Ordered Tests: Active Orders 24 hr Category Date Time Status CHEST 1 VIEW (PORTABLE) Stat Exams 10/02/20 20:13 Taken LUMBAR SPINE W/O [CT] Stat Exams 10/02/20 17:34 Taken BNP [NT PRO BNP] Stat Lab 10/02/20 20:32 Completed CBC W DIFF Stat Lab 10/02/20 20:32 Completed CMP Stat Lab 10/02/20 20:32 Completed Lactic Acid Stat Lab 10/02/20 20:21 Completed TROPONIN Q3H Lab 10/02/20 20:30 Completed TROPONIN Q3H Lab 10/02/20 23:15 Ordered UA W/RFX UR CULTURE Stat Lab 10/02/20 19:20 Completed Respiratory Therapy Assessment DAILY RT 10/02/20 20:36 Active Medication Summary Generic Name Dose Route Start Last Admin Trade Name Freq PRN Reason Stop Dose Admin Doxycycline Hyclate 100 mg/ 100 mls @ 100 mls/hr 10/02/20 22:00 10/02/20 21:45 Dextrose IV 11/01/20 21:59 100 mls/hr Q12HT FABRICIO Administration Discontinued Medications Generic Name Dose Route Start Last Admin Trade Name Freq PRN Reason Stop Dose Admin Albuterol/Ipratropium 3 ml 10/02/20 20:16 10/02/20 20:33 Duoneb 0.5-3 Mg/3 Ml Neb IH 10/02/20 20:17 3 ml STAT ONE Administration Albuterol/Ipratropium Confirm 10/02/20 20:31 Duoneb 0.5-3 Mg/3 Ml Neb Administered 10/02/20 20:32 Dose 3 ml IH .STK-MED ONE Cyclobenzaprine HCl 10 mg 10/02/20 17:35 10/02/20 17:53 Cyclobenzaprine 10 Mg PO 10/02/20 17:36 10 mg STAT ONE Administration Cyclobenzaprine HCl Confirm 10/02/20 17:52 Cyclobenzaprine 10 Mg Administered 10/02/20 17:53 Dose 10 mg .ROUTE .STK-MED ONE Doxycycline Hyclate Confirm 10/02/20 21:40 Vibramycin 100 Mg Administered 10/02/20 21:41 Dose 100 mg IV .STK-MED ONE Dextrose Confirm 10/02/20 21:40 D5w 100ml Mini Bag 100 Ml Administered 10/02/20 21:41 Dose 100 mls @ ud IV .STK-MED ONE Methylprednisolone Sodium Succinate 125 mg 10/02/20 20:15 10/02/20 20:45 Solu-Medrol 125 Mg IV 10/02/20 20:16 125 mg STAT ONE Administration Methylprednisolone Sodium Succinate Confirm 10/02/20 20:44 Solu-Medrol 125 Mg Administered 10/02/20 20:45 Dose 125 mg .ROUTE .STK-MED ONE Oxycodone/Acetaminophen 2 tab 10/02/20 17:34 10/02/20 17:52 Percocet Tablet 5/325mg PO 10/02/20 17:35 2 tab STAT ONE Administration Oxycodone/Acetaminophen Confirm 10/02/20 17:51 Percocet Tablet 5/325mg Administered 10/02/20 17:52 Dose 2 tab .ROUTE .STK-MED ONE Lab/Rad Data: Laboratory Result Diagrams 10/02/20 20:32 10/02/20 20:32 Laboratory Results 10/02/20 10/02/20 10/02/20 Range/Units 20:32 20:32 20:32 WBC 7.5 (4.0-10.5) K/mm3 RBC 4.90 (4.1-5.4) M/mm3 Hgb 14.3 (12.0-16.0) gm/dl Hct 46.5 (35-47) % MCV 94.9 (78-100) fl MCH 29.2 (26-32) pg MCHC 30.8 L (32-36) g/dl RDW 15.8 H (11.5-14.0) % Plt Count 183 (150-450) K/mm3 MPV 10.7 (7.5-11.0) fl Gran % 67.7 H (36.0-66.0) % Eos # (Auto) 0.20 (0-0.5) Absolute Lymphs (auto) 1.52 (1.0-4.6) Absolute Monos (auto) 0.67 (0.0-1.3) Lymphocytes % 20.3 L (24.0-44.0) % Monocytes % 9.0 (0.0-12.0) % Eosinophils % 2.7 (0.00-5.0) % Basophils % 0.3 (0.0-0.4) % Absolute Granulocytes 5.06 (1.4-6.9) Basophils # 0.02 (0-0.4) Sodium 140 (137-145) mmol/L Potassium 4.3 (3.5-5.1) mmol/L Chloride 106 (98-107) mmol/L Carbon Dioxide 29 (22-30) mmol/L Anion Gap 9.2 (5-15) MEQ/L BUN 30 H (7-17) mg/dL Creatinine 0.73 (0.52-1.04) mg/dL Estimated GFR > 60.0 ML/MIN Glucose 124 H (74-106) mg/dL Lactic Acid (0.4-2.0) Calcium 9.3 (8.4-10.2) mg/dL Total Bilirubin 0.30 (0.2-1.3) mg/dL AST 21 (14-36) U/L ALT 20 (0-35) U/L Alkaline Phosphatase 59 (38-126) U/L Troponin I (0.000-0.034) ng/mL NT-Pro-B Natriuret Pep 75.2 (0-900) pg/mL Serum Total Protein 6.5 (6.3-8.2) g/dL Albumin 3.5 (3.5-5.0) g/dL Urine Color (YELLOW) Urine Appearance (CLEAR) Urine pH (5-6) Ur Specific [place] (1.005-1.025) Urine Protein (Negative) Urine Ketones (NEGATIVE) Urine Blood (0-5) [place]/ul Urine Nitrite (NEGATIVE) Urine Bilirubin (NEGATIVE) Urine Urobilinogen (0-1) mg/dL Ur Leukocyte Esterase (NEGATIVE) Urine WBC (Auto) (0-5) /HPF Urine RBC (Auto) (0-2) /HPF U Epithel Cells (Auto) (FEW) /HPF Urine Bacteria (Auto) (NEGATIVE) /HPF Urine Mucus (Auto) (NEGATIVE) /HPF Urine Culture Reflexed (NO) Urine Glucose (NEGATIVE) mg/dL 10/02/20 10/02/20 10/02/20 Range/Units 20:30 20:21 19:20 WBC (4.0-10.5) K/mm3 RBC (4.1-5.4) M/mm3 Hgb (12.0-16.0) gm/dl Hct (35-47) % MCV (78-100) fl MCH (26-32) pg MCHC (32-36) g/dl RDW (11.5-14.0) % Plt Count (150-450) K/mm3 MPV (7.5-11.0) fl Gran % (36.0-66.0) % Eos # (Auto) (0-0.5) Absolute Lymphs (auto) (1.0-4.6) Absolute Monos (auto) (0.0-1.3) Lymphocytes % (24.0-44.0) % Monocytes % (0.0-12.0) % Eosinophils % (0.00-5.0) % Basophils % (0.0-0.4) % Absolute Granulocytes (1.4-6.9) Basophils # (0-0.4) Sodium (137-145) mmol/L Potassium (3.5-5.1) mmol/L Chloride (98-107) mmol/L Carbon Dioxide (22-30) mmol/L Anion Gap (5-15) MEQ/L BUN (7-17) mg/dL Creatinine (0.52-1.04) mg/dL Estimated GFR ML/MIN Glucose (74-106) mg/dL Lactic Acid 1.2 (0.4-2.0) Calcium (8.4-10.2) mg/dL Total Bilirubin (0.2-1.3) mg/dL AST (14-36) U/L ALT (0-35) U/L Alkaline Phosphatase (38-126) U/L Troponin I < 0.012 (0.000-0.034) ng/mL NT-Pro-B Natriuret Pep (0-900) pg/mL Serum Total Protein (6.3-8.2) g/dL Albumin (3.5-5.0) g/dL Urine Color YELLOW (YELLOW) Urine Appearance CLEAR (CLEAR) Urine pH 5.0 (5-6) Ur Specific [place] 1.019 (1.005-1.025) Urine Protein 100 (Negative) Urine Ketones NEGATIVE (NEGATIVE) Urine Blood NEGATIVE (0-5) [place]/ul Urine Nitrite NEGATIVE (NEGATIVE) Urine Bilirubin NEGATIVE (NEGATIVE) Urine Urobilinogen NEGATIVE (0-1) mg/dL Ur Leukocyte Esterase NEGATIVE (NEGATIVE) Urine WBC (Auto) 0-2 (0-5) /HPF Urine RBC (Auto) NONE (0-2) /HPF U Epithel Cells (Auto) NONE (FEW) /HPF Urine Bacteria (Auto) NONE SEEN (NEGATIVE) /HPF Urine Mucus (Auto) SLIGHT (NEGATIVE) /HPF Urine Culture Reflexed NO (NO) Urine Glucose NEGATIVE (NEGATIVE) mg/dL - Progress Progress Note: 10/02/20 21:54 64 years old is evaluated for low back pain. She is given oral Percocet and Flexeril, on reevaluation her pain is better. She has negative neuro exam in lower extremitie. I have obtained CT lumbar spine which is negative for any acute fracture subluxation. While in the ER patient started to desat and her oxygen saturation dropped to 83% on room air with good waveform. She is placed on 3 L oxygen and currently around 93%. I have obtained an EKG which showed normal sinus rhythm with right bundle branch block but no acute ST elevation. Work-up showed normal white count, negative troponin. Chest x-ray showed questionable infiltrative process in the right lower lobe versus chronic in terstitial process. She is given a dose of doxycycline. I believe patient has COPD exacerbation. Discussed with and patient is being admitted. Will obtain COVID-19 testing as well. Discussed with : Asha Will see patient in: hospital (observation) Counseled pt/family regarding: lab results, diagnosis, rad results - Departure Departure Disposition: Observation Clinical Impression: Acute respiratory failure with hypoxia, COPD exacerbation Condition: Stable Critical Care Time: No Referrals: ARSH LINDER MD [Primary Care Provider] - Instructions: Chronic Obstructive Pulmonary Disease
[2020-10-02 19:48] LABS: Appearance CLEAR (CLEAR); Bilirubin NEGATIVE (NEGATIVE); Blood NEGATIVE Ery/ul (0-5); Glucose NEGATIVE (NEGATIVE); Ketones NEGATIVE (NEGATIVE); Leukocyte Esterase NEGATIVE (NEGATIVE); Mucus SLIGHT /HPF (NEGATIVE); Nitrite NEGATIVE (NEGATIVE); Protein,Urine Dip 100 (Negative); Specific Gravity 1.019 (1.005-1.025); Urobilinogen NEGATIVE mg/dL (0-1); WBC 0-2 /HPF (0-5)
[2020-10-02 19:55] LABS: Bacteria NONE SEEN /HPF (NEGATIVE)
[2020-10-02] MEDS ORDERED: solu-MEDROL 125 MG IV ONE (20:15)
[2020-10-02] MEDS ORDERED: DUONEB 0.5-3 MG/3 ml Neb IH ONE ×2 (20:16→20:31)
[2020-10-02 20:31] LABS: Absolute Neutrophil Ct (ANC) 5.06 (1.4-6.9); BASOPHIL % 0.3 % (0.0-0.4); Basophil (Absolute #) 0.02 (0-0.4); Eosinophil % 2.7 % (0.00-5.0); Hematocrit 46.5 % (35-47); Hemoglobin 14.3 gm/dl (12.0-16.0); Lymphocyte (Absolute #) 1.52 (1.0-4.6); Lymphocytes % 20.3 % (24.0-44.0); Mean Cell Volume 94.9 fl (78-100); Mean Corpuscular Hemoglobin 29.2 pg (26-32); Mean Corpuscular Hgb Concent. 30.8 g/dl (32-36); Mean Platelet Volume 10.7 fl (7.5-11.0); Monocyte (Absolute #) 0.67 (0.0-1.3); Neutrophil % 67.7 % (36.0-66.0); Platelet Count 183 K/mm3 (150-450); Red Cell Distribution Width 15.8 % (11.5-14.0); White Blood Count 7.5 K/mm3 (4.0-10.5)
[2020-10-02 20:44] LABS: ALBUMIN 3.5 g/dL (3.5-5.0); ALKALINE PHOSPHATASE 59 U/L (38-126); ANION GAP 9.2 MEQ/L (5-15); BLOOD UREA NITROGEN 30 mg/dL (7-17); CHLORIDE 106 mmol/L (98-107); Calcium 9.3 mg/dL (8.4-10.2); Carbon Dioxide 29 mmol/L (22-30); Creatinine 1 0.73 mg/dL (0.52-1.04); EST GLOMERULAR FILTRATION RATE > 60.0 ML/MIN; Glucose 124 mg/dL (74-106); Potassium 4.3 mmol/L (3.5-5.1); SGOT/AST 21 U/L (14-36); SGPT/ALT 20 U/L (0-35); SODIUM 140 mmol/L (137-145); Total Protein 6.5 g/dL (6.3-8.2)
[2020-10-02] MEDS ORDERED: solu-MEDROL 125 MG ONE (20:44)
[2020-10-02] MEDS ORDERED: D5w 100ML Mini Bag 100 ML 100 ML IV ONE (21:40)
[2020-10-02] MEDS ORDERED: VIBRAMYCIN 100 MG IV ONE (21:40)
[2020-10-02] MEDS ORDERED: VIBRAMYCIN 100 MG*** 100 MG in Dextrose 5%/Water IV Soln. 100ML PLUS BAG 100 ML IV SCH (22:00)
[2020-10-02] MEDS ORDERED: Zofran 4 MG/2 ML VIAL IV PRN (23:00)
[2020-10-02] MEDS ORDERED: MORPHINE SULFATE 2 MG INJ IV PRN (23:00)
[2020-10-02] MEDS ORDERED: solu-MEDROL 125 MG IV SCH (23:00)
[2020-10-03] MEDS: DUONEB 0.5-3 MG/3 ml Neb IH PRN (00:51)
[2020-10-03] MEDS: REQUIP 2MG TAB PO SCH ×4 (01:21→21:00)
[2020-10-03] MEDS ORDERED: solu-MEDROL 125 MG ONE (03:44)
[2020-10-03 05:09] LABS: Hematocrit 47.6 % (35-47); Hemoglobin 14.5 gm/dl (12.0-16.0); Mean Cell Volume 95.6 fl (78-100); Mean Corpuscular Hemoglobin 29.1 pg (26-32); Mean Corpuscular Hgb Concent. 30.5 g/dl (32-36); Mean Platelet Volume 10.8 fl (7.5-11.0); Platelet Count 191 K/mm3 (150-450); Red Blood Count 4.98 M/mm3 (4.1-5.4); Red Cell Distribution Width 15.7 % (11.5-14.0); White Blood Count 7.2 K/mm3 (4.0-10.5)
[2020-10-03 05:36] LABS: ALBUMIN 3.9 g/dL (3.5-5.0); ALKALINE PHOSPHATASE 59 U/L (38-126); ANION GAP 10.9 MEQ/L (5-15); BLOOD UREA NITROGEN 26 mg/dL (7-17); CHLORIDE 102 mmol/L (98-107); Calcium 9.2 mg/dL (8.4-10.2); Carbon Dioxide 28 mmol/L (22-30); Creatinine 1 0.74 mg/dL (0.52-1.04); EST GLOMERULAR FILTRATION RATE > 60.0 ML/MIN; Glucose 265 mg/dL (74-106); Potassium 4.1 mmol/L (3.5-5.1); SGOT/AST 23 U/L (14-36); SGPT/ALT 24 U/L (0-35); SODIUM 137 mmol/L (137-145); Total Protein 7.4 g/dL (6.3-8.2)
[2020-10-03] MEDS: DUONEB 0.5-3 MG/3 ml Neb IH SCH ×4 (06:28→19:20)
[2020-10-03] MEDS: TYLENOL 325 MG PO PRN ×2 (07:22→19:58)
[2020-10-03 07:36] LABS: BAND 1 % (0.0-2.0); Lymphocytes 6 % (24-44); Neutrophils 93 % (36.0-66.0); Total Cells Counted 100
[2020-10-03 07:37] LABS: ANISOCYTOSIS 1+; Platelet Estimate NORMAL (NORMAL); Toxic Granulation 1+
--- NOTE | 2020-10-03 08:40 | XRAY ---
Indication: Low back pain a few months. No known injury. Multiple contiguous axial images obtained through the lumbar spine. Sagittal and coronal reformatted images obtained. Comparison: CT abdomen/pelvis August 18, 2019. Axial images negative for acute fracture, suspicious bony lesions, or spinal canal stenosis. There is again moderate/advanced L1-S1 degenerative disc disease with vacuum disc phenomena and bilateral degenerative facet arthropathy. Sagittal and coronal reformatted images demonstrates stable normal lordosis with minimal scoliosis. No acute compression fracture or subluxation. Visualized noncontrasted soft tissues again demonstrates mild aortoiliac calcifications. Impression: 1. Negative acute fracture/subluxation. 2. Continued moderate/advanced multilevel degenerative disc disease better evaluated with outpatient MRI.
--- NOTE | 2020-10-03 08:41 | XRAY ---
Indication: Short of breath. Comparison: April 01, 2020. Portable chest now demonstrates prominent bilateral interstitial opacities without consolidation/large effusion, possibly pneumonitis in the right clinical setting. Increasing lingula subsegmental atelectasis/scarring. Heart is not enlarged. Bony thorax intact.
[2020-10-03] MEDS: Zestril 10 MG PO SCH (09:26)
[2020-10-03] MEDS: xanAX 0.25 MG PO SCH ×3 (09:26→21:00)
[2020-10-03] MEDS: Ditropan XL 5 MG PO SCH (09:26)
[2020-10-03] MEDS: hydroDIURIL 25 MG PO SCH (09:27)
[2020-10-03] MEDS: solu-MEDROL 125 MG IV SCH ×3 (09:28→21:00)
[2020-10-03] MEDS: PROTONIX 40 MG IV IV SCH (09:30)
[2020-10-03] MEDS ORDERED: NON-FORMULARY ITEM (Lisinopril/Hydrochlorothiazide [Lisinopril-Hctz 10-12.5 Mg Tab] 1 EACH PO SCH (10:00)
[2020-10-03] MEDS ORDERED: Levofloxacin 500 MG Tablet PO SCH (10:00)
[2020-10-03] MEDS ORDERED: VIBRAMYCIN 100 MG*** 100 MG in Dextrose 5%/Water IV Soln. 100ML PLUS BAG 100 ML IV SCH (10:00)
--- NOTE | 2020-10-03 10:54 | PCM.HP ---
History of Present Illness - Chief Complaint Chief Complaint: c/o low back pain for 1 week History of Present Illness: is a 64 year old female.64 years old female with history of COPD, tobacco abuse, chronic low back pain presented in the ER with 1 week history of progressive worsening low back pain moderate to severe intensity sharp in nature with minimal radiation to bilateral buttocks, without any associated numbness tingling or weakness of lower extremities. No loss of bowel or bladder control. Patient reports having this pain occasionally but usually goes away with Tylenol but this time it was not going away and she cannot take it anymore. Denies any fall trauma, pushing or pulling heavy stuff. Timing/Duration: week(s), intermittent, gradual onset, worse Method of Injury: unknown Quality: sharp Back Pain Location: lumbar spine, paraspinous muscles Back Pain Radiation: buttocks Severity of Pain-Max: severe Severity of Pain-Current: severe Modifying Factors: Improves With: immobilization, rest. Worsens With: movement Associated Symptoms: lower back pain, muscle spasms, No urinary incontinence, No loss of bowel control, No problems urinating, No numbness in legs/feet, No weakness, No sensory/motor loss - Review of Systems Constitutional: No Fever, No Chills Eyes: No Symptoms Ears, Nose, & Throat: No Symptoms Respiratory: Short Of Breath, No Cough Cardiac: No Chest Pain, No Edema, No Syncope Abdominal/Gastrointestinal: No Abdominal Pain, No Nausea, No Vomiting, No Di arrhea Genitourinary Symptoms: No Dysuria Musculoskeletal: Back Pain, No Neck Pain Skin: No Rash Neurological: No Dizziness, No Focal Weakness, No Sensory Changes Psychological: No Symptoms Endocrine: No Symptoms Hematologic/Lymphatic: No Symptoms Immunological/Allergic: No Symptoms Medications & Allergies Home Medications: Home Medication List Ropinirole HCl [Requip] 2 mg PO TID 03/05/14 [History Confirmed 10/02/20] Alprazolam [Xanax] 0.25 mg PO TID 08/18/19 [History Confirmed 10/02/20] Lisinopril/Hydrochlorothiazide [Lisinopril-Hctz 10-12.5 mg Tab] 1 each PO DAILY 10/03/20 [History Confirmed 10/03/20] Oxybutynin Chloride [Oxybutynin Chloride ER] 5 mg PO DAILY 10/03/20 [History Confirmed 10/03/20] Allergies/Adverse Reactions: Allergies Allergy/AdvReac Type Severity Reaction Status Date / Time codeine Allergy Intermediate rash, Verified 10/02/20 17:09 itching cefaclor [From Ceclor] Allergy Mild Rash Verified 10/02/20 17:09 Penicillins Allergy Mild Swelling Verified 10/02/20 17:09 bacitracin Allergy Verified 10/02/20 17:09 [From Neosporin ([id number])] bacitracin zinc Allergy Verified 10/02/20 17:09 [From Neosporin ([id number])] levofloxacin [From Levaquin] Allergy Verified 10/02/20 17:09 neomycin sulfate Allergy Verified 10/02/20 17:09 [From Neosporin ([id number])] polymyxin B Allergy Verified 10/02/20 17:09 [From Neosporin ([id number])] - Past Medical History Past Medical History: Yes Neurological History: No Pertinent History ENT History: No Pertinent History Cardiac History: No Pertinent History Respiratory History: COPD, Emphysema Endocrine Medical History: No Pertinent History Musculoskelatal History: Arthritis, Fibromyalgia GI Medical History: No Pertinent History History: Other Pyscho-Social History: No Pertinent History Reproductive Disorders: No Pertinent History Comment: leaky bladder - Female History Are you now?: No - Past Surgical History Past Surgical History: Yes Neuro Surgical History: No Pertinent History Cardiac History: No Pertinent History Respiratory Surgery: No Pertinent History GI Surgical History: Cholecystectomy Genitourinary Surgical Hx: No Pertinent History Musculskeletal Surgical Hx: No Pertinent History Female Surgical History: No Pertinent History, Tubal Ligation - Social History Smoking Status: Current every day smoker How long have you smoked: years Exposure to second hand smoke: Yes Alcohol: Rarely Drug Use: none - Physical Exam Vital Signs: Vital Signs - 24 hr Temp Pulse Resp BP Pulse Ox 10/03/20 10:44 100 H 22 90 L 10/03/20 07:41 97.9 F 109 H 18 147/63 90 L 10/03/20 06:30 108 H 22 91 L 10/03/20 03:53 98.0 F 109 H 21 176/75 92 L 10/03/20 00:51 102 H 24 92 L 10/02/20 23:26 98.0 F 95 H 20 155/70 91 L 10/02/20 23:19 94 H 20 92 L 10/02/20 22:00 98 H 22 152/81 95 10/02/20 21:57 94 L 10/02/20 21:05 87 18 157/64 95 10/02/20 20:33 102 H 18 97 10/02/20 20:00 90 22 133/54 99 10/02/20 19:10 89 18 141/69 94 L 10/02/20 17:02 98.0 F 96 H 186/81 94 L Oxygen-Last 24 hours Oxygen Flowrate (L/min)-RT 4 Oxygen Flowrate (L/min)-RT 2 General Appearance: no apparent distress, alert Neurologic Exam: alert, 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, cooperative, normal mood/affect, nml cerebellar function, nml station & gait, sensation nml, No motor deficits Eye Exam: PERRL/EOMI, eyes nml inspection Ears, Nose, Throat Exam: normal ENT inspection, TMs normal, pharynx normal, moist mucous membranes Neck Exam: normal inspection, non-tender, supple, full range of motion Respiratory Exam: diminished breath sounds, crackles/rales, rhonchi, wheezing, No respiratory distress Cardiovascular Exam: regular rate/rhythm, normal heart sounds, normal peripheral pulses Gastrointestinal/Abdomen Exam: soft, normal bowel sounds, No tenderness, No mass Back Exam: normal inspection, normal range of motion, No CVA tenderness, No vertebral tenderness Extremity Exam: normal inspection, normal range of motion, pelvis stable Skin Exam: normal color, warm, dry, No rash Lymphatic Exam: No adenopathy Results - Labs Lab/Micro Results: Lab Results-Last 24 Hours 10/02/20 10/02/20 10/02/20 Range/Units 19:20 20:21 20:30 WBC (4.0-10.5) K/mm3 RBC (4.1-5.4) M/mm3 Hgb (12.0-16.0) gm/dl Hct (35-47) % MCV (78-100) fl MCH (26-32) pg MCHC (32-36) g/dl RDW (11.5-14.0) % Plt Count (150-450) K/mm3 MPV (7.5-11.0) fl Gran % (36.0-66.0) % Eos # (Auto) (0-0.5) Absolute Lymphs (auto) (1.0-4.6) Absolute Monos (auto) (0.0-1.3) Lymphocytes % (24.0-44.0) % Monocytes % (0.0-12.0) % Eosinophils % (0.00-5.0) % Basophils % (0.0-0.4) % Absolute Granulocytes (1.4-6.9) Segmented Neutrophils (36.0-66.0) % Band Neutrophils (0.0-2.0) % Lymphocytes (Manual) (24-44) % Basophils # (0-0.4) Toxic Granulation Platelet Estimate (NORMAL) RBC Morphology Anisocytosis Sodium (137-145) mmol/L Potassium (3.5-5.1) mmol/L Chloride (98-107) mmol/L Carbon Dioxide (22-30) mmol/L Anion Gap (5-15) MEQ/L BUN (7-17) mg/dL Creatinine (0.52-1.04) mg/dL Estimated GFR ML/MIN Glucose (74-106) mg/dL Lactic Acid 1.2 (0.4-2.0) Calcium (8.4-10.2) mg/dL Total Bilirubin (0.2-1.3) mg/dL AST (14-36) U/L ALT (0-35) U/L Alkaline Phosphatase (38-126) U/L Troponin I < 0.012 (0.000-0.034) ng/mL NT-Pro-B Natriuret Pep (0-900) pg/mL Serum Total Protein (6.3-8.2) g/dL Albumin (3.5-5.0) g/dL Urine Color YELLOW (YELLOW) Urine Appearance CLEAR (CLEAR) Urine pH 5.0 (5-6) Ur Specific [place] 1.019 (1.005-1.025) Urine Protein 100 (Negative) Urine Ketones NEGATIVE (NEGATIVE) Urine Blood NEGATIVE (0-5) [place]/ul Urine Nitrite NEGATIVE (NEGATIVE) Urine Bilirubin NEGATIVE (NEGATIVE) Urine Urobilinogen NEGATIVE (0-1) mg/dL Ur Leukocyte Esterase NEGATIVE (NEGATIVE) Urine WBC (Auto) 0-2 (0-5) /HPF Urine RBC (Auto) NONE (0-2) /HPF U Epithel Cells (Auto) NONE (FEW) /HPF Urine Bacteria (Auto) NONE SEEN (NEGATIVE) /HPF Urine Mucus (Auto) SLIGHT (NEGATIVE) /HPF Urine Culture Reflexed NO (NO) Urine Glucose NEGATIVE (NEGATIVE) mg/dL SARS-CoV-2 (PCR) (NEGATIVE) 10/02/20 10/02/20 10/02/20 Range/Units 20:32 20:32 20:32 WBC 7.5 (4.0-10.5) K/mm3 RBC 4.90 (4.1-5.4) M/mm3 Hgb 14.3 (12.0-16.0) gm/dl Hct 46.5 (35-47) % MCV 94.9 (78-100) fl MCH 29.2 (26-32) pg MCHC 30.8 L (32-36) g/dl RDW 15.8 H (11.5-14.0) % Plt Count 183 (150-450) K/mm3 MPV 10.7 (7.5-11.0) fl Gran % 67.7 H (36.0-66.0) % Eos # (Auto) 0.20 (0-0.5) Absolute Lymphs (auto) 1.52 (1.0-4.6) Absolute Monos (auto) 0.67 (0.0-1.3) Lymphocytes % 20.3 L (24.0-44.0) % Monocytes % 9.0 (0.0-12.0) % Eosinophils % 2.7 (0.00-5.0) % Basophils % 0.3 (0.0-0.4) % Absolute Granulocytes 5.06 (1.4-6.9) Segmented Neutrophils (36.0-66.0) % Band Neutrophils (0.0-2.0) % Lymphocytes (Manual) (24-44) % Basophils # 0.02 (0-0.4) Toxic Granulation Platelet Estimate (NORMAL) RBC Morphology Anisocytosis Sodium 140 (137-145) mmol/L Potassium 4.3 (3.5-5.1) mmol/L Chloride 106 (98-107) mmol/L Carbon Dioxide 29 (22-30) mmol/L Anion Gap 9.2 (5-15) MEQ/L BUN 30 H (7-17) mg/dL Creatinine 0.73 (0.52-1.04) mg/dL Estimated GFR > 60.0 ML/MIN Glucose 124 H (74-106) mg/dL Lactic Acid (0.4-2.0) Calcium 9.3 (8.4-10.2) mg/dL Total Bilirubin 0.30 (0.2-1.3) mg/dL AST 21 (14-36) U/L ALT 20 (0-35) U/L Alkaline Phosphatase 59 (38-126) U/L Troponin I (0.000-0.034) ng/mL NT-Pro-B Natriuret Pep 75.2 (0-900) pg/mL Serum Total Protein 6.5 (6.3-8.2) g/dL Albumin 3.5 (3.5-5.0) g/dL Urine Color (YELLOW) Urine Appearance (CLEAR) Urine pH (5-6) Ur Specific [place] (1.005-1.025) Urine Protein (Negative) Urine Ketones (NEGATIVE) Urine Blood (0-5) [place]/ul Urine Nitrite (NEGATIVE) Urine Bilirubin (NEGATIVE) Urine Urobilinogen (0-1) mg/dL Ur Leukocyte Esterase (NEGATIVE) Urine WBC (Auto) (0-5) /HPF Urine RBC (Auto) (0-2) /HPF U Epithel Cells (Auto) (FEW) /HPF Urine Bacteria (Auto) (NEGATIVE) /HPF Urine Mucus (Auto) (NEGATIVE) /HPF Urine Culture Reflexed (NO) Urine Glucose (NEGATIVE) mg/dL SARS-CoV-2 (PCR) (NEGATIVE) 10/02/20 10/02/20 10/03/20 Range/Units 21:36 23:25 04:20 WBC 7.2 (4.0-10.5) K/mm3 RBC 4.98 (4.1-5.4) M/mm3 Hgb 14.5 (12.0-16.0) gm/dl Hct 47.6 H (35-47) % MCV 95.6 (78-100) fl MCH 29.1 (26-32) pg MCHC 30.5 L (32-36) g/dl RDW 15.7 H (11.5-14.0) % Plt Count 191 (150-450) K/mm3 MPV 10.8 (7.5-11.0) fl Gran % (36.0-66.0) % Eos # (Auto) (0-0.5) Absolute Lymphs (auto) (1.0-4.6) Absolute Monos (auto) (0.0-1.3) Lymphocytes % (24.0-44.0) % Monocytes % (0.0-12.0) % Eosinophils % (0.00-5.0) % Basophils % (0.0-0.4) % Absolute Granulocytes (1.4-6.9) Segmented Neutrophils 93 H (36.0-66.0) % Band Neutrophils 1 (0.0-2.0) % Lymphocytes (Manual) 6 L (24-44) % Basophils # (0-0.4) Toxic Granulation 1+ Platelet Estimate NORMAL (NORMAL) RBC Morphology ABNORMAL Anisocytosis 1+ Sodium (137-145) mmol/L Potassium (3.5-5.1) mmol/L Chloride (98-107) mmol/L Carbon Dioxide (22-30) mmol/L Anion Gap (5-15) MEQ/L BUN (7-17) mg/dL Creatinine (0.52-1.04) mg/dL Estimated GFR ML/MIN Glucose (74-106) mg/dL Lactic Acid (0.4-2.0) Calcium (8.4-10.2) mg/dL Total Bilirubin (0.2-1.3) mg/dL AST (14-36) U/L ALT (0-35) U/L Alkaline Phosphatase (38-126) U/L Troponin I < 0.012 (0.000-0.034) ng/mL NT-Pro-B Natriuret Pep (0-900) pg/mL Serum Total Protein (6.3-8.2) g/dL Albumin (3.5-5.0) g/dL Urine Color (YELLOW) Urine Appearance (CLEAR) Urine pH (5-6) Ur Specific [place] (1.005-1.025) Urine Protein (Negative) Urine Ketones (NEGATIVE) Urine Blood (0-5) [place]/ul Urine Nitrite (NEGATIVE) Urine Bilirubin (NEGATIVE) Urine Urobilinogen (0-1) mg/dL Ur Leukocyte Esterase (NEGATIVE) Urine WBC (Auto) (0-5) /HPF Urine RBC (Auto) (0-2) /HPF U Epithel Cells (Auto) (FEW) /HPF Urine Bacteria (Auto) (NEGATIVE) /HPF Urine Mucus (Auto) (NEGATIVE) /HPF Urine Culture Reflexed (NO) Urine Glucose (NEGATIVE) mg/dL SARS-CoV-2 (PCR) NEGATIVE (NEGATIVE) 10/03/20 Range/Units 04:20 WBC (4.0-10.5) K/mm3 RBC (4.1-5.4) M/mm3 Hgb (12.0-16.0) gm/dl Hct (35-47) % MCV (78-100) fl MCH (26-32) pg MCHC (32-36) g/dl RDW (11.5-14.0) % Plt Count (150-450) K/mm3 MPV (7.5-11.0) fl Gran % (36.0-66.0) % Eos # (Auto) (0-0.5) Absolute Lymphs (auto) (1.0-4.6) Absolute Monos (auto) (0.0-1.3) Lymphocytes % (24.0-44.0) % Monocytes % (0.0-12.0) % Eosinophils % (0.00-5.0) % Basophils % (0.0-0.4) % Absolute Granulocytes (1.4-6.9) Segmented Neutrophils (36.0-66.0) % Band Neutrophils (0.0-2.0) % Lymphocytes (Manual) (24-44) % Basophils # (0-0.4) Toxic Granulation Platelet Estimate (NORMAL) RBC Morphology Anisocytosis Sodium 137 (137-145) mmol/L Potassium 4.1 (3.5-5.1) mmol/L Chloride 102 (98-107) mmol/L Carbon Dioxide 28 (22-30) mmol/L Anion Gap 10.9 (5-15) MEQ/L BUN 26 H (7-17) mg/dL Creatinine 0.74 (0.52-1.04) mg/dL Estimated GFR > 60.0 ML/MIN Glucose 265 H (74-106) mg/dL Lactic Acid (0.4-2.0) Calcium 9.2 (8.4-10.2) mg/dL Total Bilirubin 0.30 (0.2-1.3) mg/dL AST 23 (14-36) U/L ALT 24 (0-35) U/L Alkaline Phosphatase 59 (38-126) U/L Troponin I (0.000-0.034) ng/mL NT-Pro-B Natriuret Pep (0-900) pg/mL Serum Total Protein 7.4 (6.3-8.2) g/dL Albumin 3.9 (3.5-5.0) g/dL Urine Color (YELLOW) Urine Appearance (CLEAR) Urine pH (5-6) Ur Specific [place] (1.005-1.025) Urine Protein (Negative) Urine Ketones (NEGATIVE) Urine Blood (0-5) [place]/ul Urine Nitrite (NEGATIVE) Urine Bilirubin (NEGATIVE) Urine Urobilinogen (0-1) mg/dL Ur Leukocyte Esterase (NEGATIVE) Urine WBC (Auto) (0-5) /HPF Urine RBC (Auto) (0-2) /HPF U Epithel Cells (Auto) (FEW) /HPF Urine Bacteria (Auto) (NEGATIVE) /HPF Urine Mucus (Auto) (NEGATIVE) /HPF Urine Culture Reflexed (NO) Urine Glucose (NEGATIVE) mg/dL SARS-CoV-2 (PCR) (NEGATIVE) - Radiology Impressions Radiology Exams & Impressions: Radiology Procedures Category Date Time Status CHEST 1 VIEW (PORTABLE) Stat Exams 10/02/20 20:13 Completed LUMBAR SPINE W/O [CT] Stat Exams 10/02/20 17:[address]/LUMBAR SPINE W/O Indication: Low back pain a few months. No known injury. Multiple contiguous axial images obtained through the lumbar spine. Sagittal and coronal reformatted images obtained. Comparison: CT abdomen/pelvis August 18, 2019. Axial images negative for acute fracture, suspicious bony lesions, or spinal canal stenosis. There is again moderate/advanced L1-S1 degenerative disc disease with vacuum disc phenomena and bilateral degenerative facet arthropathy. Sagittal and coronal reformatted images demonstrates stable normal lordosis with minimal scoliosis. No acute compression fracture or subluxation. Visualized noncontrasted soft tissues again demonstrates mild aortoiliac calcifications. Impression: 1. Negative acute fracture/subluxation. 2. Continued moderate/advanced multilevel degenerative disc disease better evaluated with outpatient MRI. 0094 RAD/CHEST 1 VIEW (PORTABLE) Indication: Short of breath. Comparison: April 01, 2020. Portable chest now demonstrates prominent bilateral interstitial opacities without consolidation/large effusion, possibly pneumonitis in the right clinical setting. Increasing lingula subsegmental atelectasis/scarring. Heart is not enlarged. Bony thorax intact. - Other Procedures and Tests Respiratory Therapy 10/02/20 20:36 Respiratory Therapy Assessment DAILY 10/02/20 23:00 Oxygen Nasal Cannula 2 lpm Assessment/Plan (1) Acute respiratory failure with hypoxia Current Visit: Yes Status: Acute Assessment & Plan: Chief Complaint Diagnosis c/o low back pain for 1 week Allergies Allergy/AdvReac Type Severity Reaction Status Date / Time codeine Allergy Intermediate rash, Verified 10/02/20 17:09 itching cefaclor [From Ceclor] Allergy Mild Rash Verified 10/02/20 17:09 Penicillins Allergy Mild Swelling Verified 10/02/20 17:09 bacitracin Allergy Verified 10/02/20 17:09 [From Neosporin ([id number])] bacitracin zinc Allergy Verified 10/02/20 17:09 [From Neosporin (azj-eal-ipqht)] levofloxacin [From Levaquin] Allergy Verified 10/02/20 17:09 neomycin sulfate Allergy Verified 10/02/20 17:09 [From Neosporin (izx-[id number])] polymyxin B Allergy Verified 10/02/20 17:09 [From Neosporin ([id number])] Vital Signs (Last 24 hours) Temp Pulse Resp BP Pulse Ox 10/03/20 10:44 100 H 22 90 L 10/03/20 07:41 97.9 F 109 H 18 147/63 90 L 10/03/20 06:30 108 H 22 91 L 10/03/20 03:53 98.0 F 109 H 21 176/75 92 L 10/03/20 00:51 102 H 24 92 L 10/02/20 23:26 98.0 F 95 H 20 155/70 91 L 10/02/20 23:19 94 H 20 92 L 10/02/20 22:00 98 H 22 152/81 95 10/02/20 21:57 94 L 10/02/20 21:05 87 18 157/64 95 10/02/20 20:33 102 H 18 97 10/02/20 20:00 90 22 133/54 99 10/02/20 19:10 89 18 141/69 94 L 10/02/20 17:02 98.0 F 96 H 186/81 94 L Home Medications Medication Instructions Recorded Confirmed Last Taken Type Lisinopril/Hydrochlorothiazide 1 each PO DAILY 10/03/20 10/03/20 Unknown History [Lisinopril-Hctz 10-12.5 mg Tab] Oxybutynin Chloride [Oxybutynin 5 mg PO DAILY 10/03/20 10/03/20 Unknown History Chloride ER] Current Medications Generic Name Dose Route Start Last Admin Trade Name Freq PRN Reason Stop Dose Admin Acetaminophen 650 mg 10/02/20 23:00 10/03/20 07:22 Tylenol 325 Mg PO 11/01/20 22:59 650 mg Q4H PRN PRN Administration PAIN AND/OR FEVER Albuterol/Ipratropium 3 ml 10/03/20 07:00 10/03/20 10:36 Duoneb 0.5-3 Mg/3 Ml Neb IH 11/02/20 06:59 3 ml QIDRT FABRICIO Administration Albuterol/Ipratropium 3 ml 10/03/20 00:46 10/03/20 00:51 Duoneb 0.5-3 Mg/3 Ml Neb IH 11/02/20 00:45 3 ml Q4HPRN PRN Administration SHORTNESS OF BREATH/WHEEZING Alprazolam 0.25 mg 10/03/20 10:00 10/03/20 09:26 Xanax 0.25 Mg PO 11/02/20 09:59 0.25 mg TID FABRICIO Administration Hydrochlorothiazide 12.5 mg 10/03/20 10:00 10/03/20 09:27 Hydrodiuril 25 Mg PO 11/02/20 09:59 12.5 mg DAILY FABRICIO Administration Doxycycline Hyclate 100 mg/ 100 mls @ 100 mls/hr 10/03/20 10:00 10/03/20 10:24 Dextrose IV 11/02/20 09:59 100 mls/hr Q12HT FABRICIO Administration Insulin Human Lispro 0 unit 10/02/20 23:00 Humalog SQ 11/01/20 22:59 UD PRN HYPERGLYCEMIA Lisinopril 10 mg 10/03/20 10:00 10/03/20 09:26 Zestril 10 Mg PO 11/02/20 09:59 10 mg DAILY FABRICIO Administration Methylprednisolone Sodium Succinate 80 mg 10/03/20 09:00 10/03/20 09:28 Solu-Medrol 125 Mg IV 11/02/20 08:59 80 mg Q6H FABRICIO Administration Ondansetron HCl 4 mg 10/02/20 23:00 Zofran 4 Mg/2 Ml Vial IV 11/01/20 22:59 Q6H PRN PRN NAUSEA/VOMITING Oxybutynin Chloride 5 mg 10/03/20 10:00 10/03/20 09:26 Ditropan Xl 5 Mg PO 11/02/20 09:59 5 mg DAILY FABRICIO Administration Pantoprazole Sodium 40 mg 10/03/20 10:00 10/03/20 09:30 Protonix 40 Mg Iv IV 11/02/20 09:59 40 mg Q24H10 FABRICIO Administration Ropinirole HCl 2 mg 10/03/20 10:00 10/03/20 09:26 Requip 2mg Tab PO 11/02/20 09:59 2 mg TID FABRICIO Administration Discontinued Medications Generic Name Dose Route Start Last Admin Trade Name Freq PRN Reason Stop Dose Admin Albuterol/Ipratropium 3 ml 10/02/20 20:16 10/02/20 20:33 Duoneb 0.5-3 Mg/3 Ml Neb IH 10/02/20 20:17 3 ml STAT ONE Administration Albuterol/Ipratropium Confirm 10/02/20 20:31 Duoneb 0.5-3 Mg/3 Ml Neb Administered 10/02/20 20:32 Dose 3 ml IH .STK-MED ONE Cyclobenzaprine HCl 10 mg 10/02/20 17:35 10/02/20 17:53 Cyclobenzaprine 10 Mg PO 10/02/20 17:36 10 mg STAT ONE Administration Cyclobenzaprine HCl Confirm 10/02/20 17:52 Cyclobenzaprine 10 Mg Administered 10/02/20 17:53 Dose 10 mg .ROUTE .STK-MED ONE Doxycycline Hyclate Confirm 10/02/20 21:40 Vibramycin 100 Mg Administered 10/02/20 21:41 Dose 100 mg IV .STK-MED ONE Doxycycline Hyclate 100 mg/ 100 mls @ 100 mls/hr 10/02/20 22:00 10/02/20 21:45 Dextrose IV 11/01/20 21:59 100 mls/hr Q12HT FABRICIO Administration Dextrose Confirm 10/02/20 21:40 D5w 100ml Mini Bag 100 Ml Administered 10/02/20 21:41 Dose 100 mls @ ud IV .STK-MED ONE Methylprednisolone Sodium Succinate 125 mg 10/02/20 20:15 10/02/20 20:45 Solu-Medrol 125 Mg IV 10/02/20 20:16 125 mg STAT ONE Administration Methylprednisolone Sodium Succinate Confirm 10/02/20 20:44 Solu-Medrol 125 Mg Administered 10/02/20 20:45 Dose 125 mg .ROUTE .STK-MED ONE Methylprednisolone Sodium Succinate 80 mg 10/02/20 23:00 10/03/20 03:48 Solu-Medrol 125 Mg IV 11/01/20 22:59 80 mg Q6H FABRICIO Administration Methylprednisolone Sodium Succinate Confirm 10/03/20 03:44 Solu-Medrol 125 Mg Administered 10/03/20 03:45 Dose 125 mg .ROUTE .STK-MED ONE Morphine Sulfate 2 mg 10/02/20 23:00 Morphine Sulfate 2 Mg Inj IV 10/07/20 22:59 Q4H PRN PRN PAIN Oxycodone/Acetaminophen 2 tab 10/02/20 17:34 10/02/20 17:52 Percocet Tablet 5/325mg PO 10/02/20 17:35 2 tab STAT ONE Administration Oxycodone/Acetaminophen Confirm 10/02/20 17:51 Percocet Tablet 5/325mg Administered 10/02/20 17:52 Dose 2 tab .ROUTE .STK-MED ONE Intake & Output (Last 24 hours) 09/30/20 10/01/20 10/02/20 10/03/20 11:59 11:59 11:59 11:59 Intake Total 740 Balance 740 Weight 105.5 kg Laboratory Results (Last 24 hours) 10/03/20 10/03/20 10/02/20 04:20 04:20 23:25 WBC 7.2 RBC 4.98 Hgb 14.5 Hct 47.6 H MCV 95.6 MCH 29.1 MCHC 30.5 L RDW 15.7 H Plt Count 191 MPV 10.8 Gran % Eos # (Auto) Absolute Lymphs (auto) Absolute Monos (auto) Lymphocytes % Monocytes % Eosinophils % Basophils % Absolute Granulocytes Segmented Neutrophils 93 H Band Neutrophils 1 Lymphocytes (Manual) 6 L Basophils # Toxic Granulation 1+ Platelet Estimate NORMAL RBC Morphology ABNORMAL Anisocytosis 1+ Sodium 137 Potassium 4.1 Chloride 102 Carbon Dioxide 28 Anion Gap 10.9 BUN 26 H Creatinine 0.74 Estimated GFR > 60.0 Glucose 265 H Lactic Acid Calcium 9.2 Total Bilirubin 0.30 AST 23 ALT 24 Alkaline Phosphatase 59 Troponin I < 0.012 NT-Pro-B Natriuret Pep Serum Total Protein 7.4 Albumin 3.9 Urine Color Urine Appearance Urine pH Ur Specific [place] Urine Protein Urine Ketones Urine Blood Urine Nitrite Urine Bilirubin Urine Urobilinogen Ur Leukocyte Esterase Urine WBC (Auto) Urine RBC (Auto) U Epithel Cells (Auto) Urine Bacteria (Auto) Urine Mucus (Auto) Urine Culture Reflexed Urine Glucose SARS-CoV-2 (PCR) 10/02/20 10/02/20 10/02/20 21:36 20:32 20:32 WBC RBC Hgb Hct MCV MCH MCHC RDW Plt Count MPV Gran % Eos # (Auto) Absolute Lymphs (auto) Absolute Monos (auto) Lymphocytes % Monocytes % Eosinophils % Basophils % Absolute Granulocytes Segmented Neutrophils Band Neutrophils Lymphocytes (Manual) Basophils # Toxic Granulation Platelet Estimate RBC Morphology Anisocytosis Sodium 140 Potassium 4.3 Chloride 106 Carbon Dioxide 29 Anion Gap 9.2 BUN 30 H Creatinine 0.73 Estimated GFR > 60.0 Glucose 124 H Lactic Acid Calcium 9.3 Total Bilirubin 0.30 AST 21 ALT 20 Alkaline Phosphatase 59 Troponin I NT-Pro-B Natriuret Pep 75.2 Serum Total Protein 6.5 Albumin 3.5 Urine Color Urine Appearance Urine pH Ur Specific [place] Urine Protein Urine Ketones Urine Blood Urine Nitrite Urine Bilirubin Urine Urobilinogen Ur Leukocyte Esterase Urine WBC (Auto) Urine RBC (Auto) U Epithel Cells (Auto) Urine Bacteria (Auto) Urine Mucus (Auto) Urine Culture Reflexed Urine Glucose SARS-CoV-2 (PCR) NEGATIVE 10/02/20 10/02/20 10/02/20 20:32 20:30 20:21 WBC 7.5 RBC 4.90 Hgb 14.3 Hct 46.5 MCV 94.9 MCH 29.2 MCHC 30.8 L RDW 15.8 H Plt Count 183 MPV 10.7 Gran % 67.7 H Eos # (Auto) 0.20 Absolute Lymphs (auto) 1.52 Absolute Monos (auto) 0.67 Lymphocytes % 20.3 L Monocytes % 9.0 Eosinophils % 2.7 Basophils % 0.3 Absolute Granulocytes 5.06 Segmented Neutrophils Band Neutrophils Lymphocytes (Manual) Basophils # 0.02 Toxic Granulation Platelet Estimate RBC Morphology Anisocytosis Sodium Potassium Chloride Carbon Dioxide Anion Gap BUN Creatinine Estimated GFR Glucose Lactic Acid 1.2 Calcium Total Bilirubin AST ALT Alkaline Phosphatase Troponin I < 0.012 NT-Pro-B Natriuret Pep Serum Total Protein Albumin Urine Color Urine Appearance Urine pH Ur Specific [place] Urine Protein Urine Ketones Urine Blood Urine Nitrite Urine Bilirubin Urine Urobilinogen Ur Leukocyte Esterase Urine WBC (Auto) Urine RBC (Auto) U Epithel Cells (Auto) Urine Bacteria (Auto) Urine Mucus (Auto) Urine Culture Reflexed Urine Glucose SARS-CoV-2 (PCR) 10/02/20 19:20 WBC RBC Hgb Hct MCV MCH MCHC RDW Plt Count MPV Gran % Eos # (Auto) Absolute Lymphs (auto) Absolute Monos (auto) Lymphocytes % Monocytes % Eosinophils % Basophils % Absolute Granulocytes Segmented Neutrophils Band Neutrophils Lymphocytes (Manual) Basophils # Toxic Granulation Platelet Estimate RBC Morphology Anisocytosis Sodium Potassium Chloride Carbon Dioxide Anion Gap BUN Creatinine Estimated GFR Glucose Lactic Acid Calcium Total Bilirubin AST ALT Alkaline Phosphatase Troponin I NT-Pro-B Natriuret Pep Serum Total Protein Albumin Urine Color YELLOW Urine Appearance CLEAR Urine pH 5.0 Ur Specific [place] 1.019 Urine Protein 100 Urine Ketones NEGATIVE Urine Blood NEGATIVE Urine Nitrite NEGATIVE Urine Bilirubin NEGATIVE Urine Urobilinogen NEGATIVE Ur Leukocyte Esterase NEGATIVE Urine WBC (Auto) 0-2 Urine RBC (Auto) NONE U Epithel Cells (Auto) NONE Urine Bacteria (Auto) NONE SEEN Urine Mucus (Auto) SLIGHT Urine Culture Reflexed NO Urine Glucose NEGATIVE SARS-CoV-2 (PCR) Orders (Last 24 hours) Category Date Time Status Bedrest with BRP/BSC ROUTINE Activity 10/02/20 23:00 Active Up With Assistance ROUTINE Activity 10/02/20 23:00 Active Code Status Order ROUTINE Care 10/02/20 23:00 Active Fall Protocol Q1H Care 10/02/20 23:00 Active IV Care Q6H Care 10/02/20 23:[address] in Observation ROUTINE Care 10/02/20 23:00 Active Ye Hose, Apply ROUTINE Care 10/02/20 23:00 Active Weight,Daily 0600 Care 10/02/20 23:00 Active House Regular Diet Diet 10/03/20 Breakfast Active CHEST 1 VIEW (PORTABLE) Stat Exams 10/02/20 20:13 Completed LUMBAR SPINE W/O [CT] Stat Exams 10/02/20 17:34 Completed BNP [NT PRO BNP] Stat Lab 10/02/20 20:32 Completed CBC W DIFF AM.LAB Lab 10/03/20 04:20 Completed CBC W DIFF Stat Lab 10/02/20 20:32 Completed CMP AM.LAB Lab 10/03/20 04:20 Completed CMP Stat Lab 10/02/20 20:32 Completed Lactic Acid Stat Lab 10/02/20 20:21 Completed Manual Differential NC Routine Lab 10/03/20 04:20 Completed TROPONIN Q3H Lab 10/02/20 20:30 Completed TROPONIN Q3H Lab 10/02/20 23:25 Completed UA W/RFX UR CULTURE Stat Lab 10/02/20 19:20 Completed Acetaminophen 325 mg [Tylenol 325 mg] Med 10/02/20 23:00 Active 650 mg PO Q4H PRN PRN Albuterol/Ipratropium 3ml Neb* [DUONEB 0.5-3 MG/3 ml Med 10/02/20 20:31 Discontinued Neb] 3 ml IH .STK-MED ONE Albuterol/Ipratropium 3ml Neb* [DUONEB 0.5-3 MG/3 ml Med 10/03/20 00:46 Active Neb] 3 ml IH Q4HPRN PRN Albuterol/Ipratropium 3ml Neb* [DUONEB 0.5-3 MG/3 ml Med 10/03/20 07:00 Active Neb] 3 ml IH QIDRT Albuterol/Ipratropium 3ml Neb* [DUONEB 0.5-3 MG/3 ml Med 10/02/20 20:16 Discontinued Neb] 3 ml IH STAT ONE Alprazolam 0.25 mg [xanAX 0.25 MG] Med 10/03/20 10:00 Active 0.25 mg PO TID Cyclobenzaprine HCl 10 mg [Cyclobenzaprine 10 MG] Med 10/02/20 17:52 Discontinued 10 mg .ROUTE .STK-MED ONE Cyclobenzaprine HCl 10 mg [Cyclobenzaprine 10 MG] Med 10/02/20 17:35 Discontinued 10 mg PO STAT ONE D5w 100 ml [D5w 100ML Mini Bag 100 ML] 100 ml Med 10/02/20 21:40 Discontinued IV UD Doxycycline Hyclate 100 mg [Vibramycin 100 mg] Med 10/02/20 21:40 Discontinued 100 mg IV .STK-MED ONE Doxycycline Hyclate 100 mg [Vibramycin 100 mg] Med 10/02/20 22:00 Discontinued 100 mg D5w 100 ml Mini-Bag Plus [Dextrose 5%/Water IV Soln. 100ML PLUS BAG] 100 ml IV Q12HT Doxycycline Hyclate 100 mg [Vibramycin 100 mg] Med 10/03/20 10:00 Active 100 mg D5w 100 ml Mini-Bag Plus [Dextrose 5%/Water IV Soln. 100ML PLUS BAG] 100 ml IV Q12HT Hydrochlorothiazide 25 mg [hydroDIURIL 25 MG] Med 10/03/20 10:00 Active 12.5 mg PO DAILY Insulin Lispro [Humalog] Med 10/02/20 23:00 Active See Dose Instructions SQ UD PRN Lisinopril 10 mg [Zestril 10 MG] Med 10/03/20 10:00 Active 10 mg PO DAILY Methylprednis Sod Succ 125 mg* [solu-MEDROL 125 MG] Med 10/02/20 20:44 Discontinued 125 mg .ROUTE .STK-MED ONE Methylprednis Sod Succ 125 mg* [solu-MEDROL 125 MG] Med 10/03/20 03:44 Discontinued 125 mg .ROUTE .STK-MED ONE Methylprednis Sod Succ 125 mg* [solu-MEDROL 125 MG] Med 10/02/20 20:15 Discontinued 125 mg IV STAT ONE Methylprednis Sod Succ 125 mg* [solu-MEDROL 125 MG] Med 10/02/20 23:00 Discontinued 80 mg IV Q6H Methylprednis Sod Succ 125 mg* [solu-MEDROL 125 MG] Med 10/03/20 09:00 Active 80 mg IV Q6H Morphine Sulfate 2 mg Inj Med 10/02/20 23:00 Discontinued 2 mg IV Q4H PRN PRN Ondansetron HCl 4 mg/2 ml [Zofran 4 MG/2 ML VIAL] Med 10/02/20 23:00 Active 4 mg IV Q6H PRN PRN Oxybutynin Chloride Xl 5 mg [Ditropan XL 5 MG] Med 10/03/20 10:00 Active 5 mg PO DAILY Oxycodone/APAP 5 mg/325 mg [Percocet Tablet 5/325Mg Med 10/02/20 17:51 Discontinued *] 2 tab .ROUTE .STK-MED ONE Oxycodone/APAP 5 mg/325 mg [Percocet Tablet 5/325Mg Med 10/02/20 17:34 Discontinued *] 2 tab PO STAT ONE Pantoprazole 40 mg [Protonix 40 mg IV] Med 10/03/20 10:00 Active 40 mg IV Q24H10 Ropinirole 2Mg [Requip 2Mg Tab] Med 10/03/20 10:00 Active 2 mg PO TID Oxygen Nasal Cannula 2 lpm RT 10/02/20 23:00 Active Pulse Oximetry .spot check RT 10/03/20 00:38 Active RT Screen per Nursing Assess ONCE RT 10/03/20 00:36 Completed Respiratory Therapy Assessment DAILY RT 10/02/20 20:36 Active Smoking Cessation Education ONCE RT 10/03/20 00:36 Completed Code(s): J96.01 - ACUTE RESPIRATORY FAILURE WITH HYPOXIA (2) COPD exacerbation Current Visit: Yes Status: Acute Code(s): J44.1 - CHRONIC OBSTRUCTIVE PULMONARY DISEASE W (ACUTE) EXACERBATION (3) Low back pain potentially associated with spinal stenosis Current Visit: Yes Status: Chronic Code(s): M54.5 - LOW BACK PAIN (4) HTN (hypertension) Current Visit: Yes Status: Chronic Code(s): I10 - ESSENTIAL (PRIMARY) HYPERTENSION
[2020-10-03] MEDS: Sodium Chloride 0.9% 1000 ML 1,000 ML IV SCH (13:44)
--- NOTE | 2020-10-03 16:37 | XRAY ---
Indication: Peripheral vascular disease. Two-dimensional sonogram and color Doppler imaging of the major arteries of the left and right leg was performed. Comparison: None Examination of the right leg demonstrates visualized common femoral, superficial femoral, popliteal, posterior tibial, and dorsal pedal arteries to be negative for critical stenosis/obstruction. Atrial waveforms are multiphasic throughout the right leg. Examination of the left leg also demonstrates widely patent common femoral, superficial femoral, popliteal, posterior tibial, and dorsal pedal arteries. Arterial waveforms are multiphasic throughout the left leg. Ankle brachial index could not be performed as both ankle pressures could not be compressed. Impression: Left and right leg arterial sonograms negative for critical stenosis/obstruction. CTA abdominal aorta with bilateral runoff may yield further information if there remains clinical concern.
[2020-10-03] MEDS: Vibramycin 100 MG PO SCH (17:19)
[2020-10-04] MEDS: TYLENOL 325 MG PO PRN (00:37)
[2020-10-04] MEDS: solu-MEDROL 125 MG IV SCH ×3 (04:42→21:03)
[2020-10-04] MEDS: DUONEB 0.5-3 MG/3 ml Neb IH SCH ×4 (06:45→19:32)
[2020-10-04] MEDS: Vibramycin 100 MG PO SCH ×3 (08:12→16:15)
[2020-10-04] MEDS: Sodium Chloride 0.9% 1000 ML 1,000 ML IV SCH (09:28)
[2020-10-04] MEDS: Ditropan XL 5 MG PO SCH (09:30)
[2020-10-04] MEDS: Zestril 10 MG PO SCH (09:30)
[2020-10-04] MEDS: xanAX 0.25 MG PO SCH ×3 (09:30→21:03)
[2020-10-04] MEDS: REQUIP 2MG TAB PO SCH ×3 (09:30→21:03)
[2020-10-04] MEDS: hydroDIURIL 25 MG PO SCH (09:31)
[2020-10-04] MEDS: PROTONIX 40 MG IV IV SCH (09:31)
--- NOTE | 2020-10-04 19:03 | PCM.NOTE ---
Date and Time: 10/04/201900 Subjective Assessment: still short of breath - Review of Systems Constitutional: No Fever, No Chills Eyes: No Symptoms Ears, Nose, & Throat: No Symptoms Respiratory: Short Of Breath, Wheezing, No Cough Cardiac: No Chest Pain, No Edema, No Syncope Abdominal/Gastrointestinal: No Abdominal Pain, No Nausea, No Vomiting, No Diarrhea Genitourinary Symptoms: No Dysuria Musculoskeletal: No Back Pain, No Neck Pain Skin: No Rash Neurological: No Dizziness, No Focal Weakness, No Sensory Changes Psychological: No Symptoms Endocrine: No Symptoms Hematologic/Lymphatic: No Symptoms Immunological/Allergic: No Symptoms Objective Exam General Appearance: no apparent distress, alert Neurologic Exam: alert, 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, cooperative, normal mood/affect, nml cerebellar function, sensation nml, No motor deficits Skin Exam: normal color, warm, dry Eye Exam: PERRL, EOMI, eyes nml inspection Ears, Nose, Throat Exam: normal ENT inspection, pharynx normal, moist mucous membranes Neck Exam: normal inspection, non-tender, supple, full range of motion Respiratory Exam: diminished breath sounds, wheezing, No respiratory distress Cardiovascular Exam: regular rate/rhythm, normal heart sounds Gastrointestinal/Abdomen Exam: soft, No tenderness, No mass Extremity Exam: normal inspection, normal range of motion Back Exam: normal inspection, normal range of motion, No CVA tenderness, No vertebral tenderness Pelvic Exam: deferred Rectal Exam: deferred OBJECTIVE DATA Vital Signs: Vital Signs - 24 hr Temp Pulse Resp BP Pulse Ox 10/04/20 16:00 97.6 F 103 H 20 141/63 95 10/04/20 15:25 96 H 20 95 10/04/20 11:52 97.9 F 99 H 20 142/63 93 L 10/04/20 10:42 96 H 20 94 L 10/04/20 08:00 98 F 94 H 25 H 149/66 94 L 10/04/20 06:45 69 18 97 10/04/20 04:00 98.2 F 107 H 30 H 150/72 90 L 10/04/20 00:00 97.9 F 106 H 24 132/59 92 L 10/03/20 19:30 98.1 F 101 H 25 H 139/60 90 L 10/03/20 19:23 102 H 20 94 L Oxygen-Last 24 hours Oxygen Flowrate (L/min)-RT 4 Oxygen Flowrate (L/min)-RT 4 Pain Assessment - Last Documented Pain Intensity [Posterior 10 Medial Distal Back] Pain Intensity 0 Pain Scale Used FLACC Intake and Output: Intake & Output 10/02/20 10/03/20 10/04/20 10/05/20 11:59 11:59 11:59 11:59 Intake Total 740 2252 936 Output Total 1350 1100 Balance 740 902 -164 Weight 105.5 kg 105.5 kg Radiology Exams: Radiology Procedures Category Date Time Status ARTERIAL BILAT LOWER EXTREMITY [US] Routine Exams 10/03/20 12:00 Completed CHEST 1 VIEW (PORTABLE) Routine Exams 10/05/20 06:00 Ordered CHEST 1 VIEW (PORTABLE) Stat Exams 10/02/20 20:13 Completed ECHO W/2D AND DOPPLER [US] Routine Exams 10/03/20 12:00 Taken Multi-Disciplinary Progress Notes: Multi-Disciplinary Progress Notes 10/04/20 16:06 Physical Therapy Note by Rupa Shirley PT. SEEN BID THIS DATE BY PT. C/O INCREASED SOB. PT. ABLE TO PERFORM SIT TO STAND MOD I. AMBULATES ~ 40' W/ ROLLER WALKER AND CGA ON 4L 02. O2 SATS 90- 91%. PT. IS COUGHING MORE TODAY AND PRODUCING SECRETIONS AT TIMES. WALKER DOES IMPROVE TRUNK POSTURE AND GAIT STEADINESS OVERALL. PT. HAS VERY SLOW PACE AND DECREASED FOOT CLEARANCE. C/O HEAVINESS IN LES. PT. TO AMBULATE W/ NSG OVER THE WEEKEND. WILL CONT. PT NEXT WEEK. RUPA SHIRLEY PT Initialized on 10/04/20 16:06 - END OF NOTE Assessment/Plan (1) COPD exacerbation Current Visit: Yes Status: Acute Assessment & Plan: Chief Complaint Diagnosis c/o low back pain for 1 week Allergies Allergy/AdvReac Type Severity Reaction Status Date / Time codeine Allergy Intermediate rash, Verified 10/02/20 17:09 itching cefaclor [From Ceclor] Allergy Mild Rash Verified 10/02/20 17:09 Penicillins Allergy Mild Swelling Verified 10/02/20 17:09 bacitracin AdvReac Mild Itching Verified 10/03/20 12:22 [From Neosporin ([id number])] bacitracin zinc AdvReac Mild Itching Verified 10/03/20 12:22 [From Neosporin ([id number])] levofloxacin [From Levaquin] AdvReac Mild itch Verified 10/03/20 12:22 neomycin sulfate AdvReac Mild itch Verified 10/03/20 12:22 [From Neosporin ([id number])] polymyxin B AdvReac Mild Itching Verified 10/03/20 12:22 [From Neosporin ([id number])] Vital Signs (Last 24 hours) Temp Pulse Resp BP Pulse Ox 10/04/20 16:00 97.6 F 103 H 20 141/63 95 10/04/20 15:25 96 H 20 95 10/04/20 11:52 97.9 F 99 H 20 142/63 93 L 10/04/20 10:42 96 H 20 94 L 10/04/20 08:00 98 F 94 H 25 H 149/66 94 L 10/04/20 06:45 69 18 97 10/04/20 04:00 98.2 F 107 H 30 H 150/72 90 L 10/04/20 00:00 97.9 F 106 H 24 132/59 92 L 10/03/20 19:30 98.1 F 101 H 25 H 139/60 90 L 10/03/20 19:23 102 H 20 94 L Home Medications Medication Instructions Recorded Confirmed Last Taken Type Lisinopril/Hydrochlorothiazide 1 each PO DAILY 10/03/20 10/03/20 Unknown History [Lisinopril-Hctz 10-12.5 mg Tab] Oxybutynin Chloride [Oxybutynin 5 mg PO DAILY 10/03/20 10/03/20 Unknown History Chloride ER] Current Medications Generic Name Dose Route Start Last Admin Trade Name Freq PRN Reason Stop Dose Admin Acetaminophen 650 mg 10/02/20 23:00 10/04/20 00:37 Tylenol 325 Mg PO 11/01/20 22:59 650 mg Q4H PRN PRN Administration PAIN AND/OR FEVER Albuterol/Ipratropium 3 ml 10/03/20 07:00 10/04/20 15:25 Duoneb 0.5-3 Mg/3 Ml Neb IH 11/02/20 06:59 3 ml QIDRT FABRICIO Administration Albuterol/Ipratropium 3 ml 10/03/20 00:46 10/03/20 00:51 Duoneb 0.5-3 Mg/3 Ml Neb IH 11/02/20 00:45 3 ml Q4HPRN PRN Administration SHORTNESS OF BREATH/WHEEZING Alprazolam 0.25 mg 10/03/20 10:00 10/04/20 14:24 Xanax 0.25 Mg PO 11/02/20 09:59 0.25 mg TID FABRICIO Administration Doxycycline Hyclate 100 mg 10/03/20 17:00 10/04/20 16:15 Vibramycin 100 Mg PO 11/02/20 16:59 100 mg BIDWMEALS FABRICIO Administration Hydrochlorothiazide 12.5 mg 10/03/20 10:00 10/04/20 09:31 Hydrodiuril 25 Mg PO 11/02/20 09:59 12.5 mg DAILY FABRICIO Administration Sodium Chloride 1,000 mls @ 50 mls/hr 10/03/20 12:00 10/04/20 09:28 Sodium Chloride 0.9% 1000 Ml IV 11/02/20 11:59 50 mls/hr .Q20H FABRICIO Administration Insulin Human Lispro 0 unit 10/02/20 23:00 Humalog SQ 11/01/20 22:59 UD PRN HYPERGLYCEMIA Lisinopril 10 mg 10/03/20 10:00 10/04/20 09:30 Zestril 10 Mg PO 11/02/20 09:59 10 mg DAILY FABRICIO Administration Methylprednisolone Sodium Succinate 80 mg 10/04/20 21:00 Solu-Medrol 125 Mg IV 11/03/20 20:59 Q12H FABRICIO Ondansetron HCl 4 mg 10/02/20 23:00 Zofran 4 Mg/2 Ml Vial IV 11/01/20 22:59 Q6H PRN PRN NAUSEA/VOMITING Oxybutynin Chloride 5 mg 10/03/20 10:00 10/04/20 09:30 Ditropan Xl 5 Mg PO 11/02/20 09:59 5 mg DAILY FABRICIO Administration Pantoprazole Sodium 40 mg 10/03/20 10:00 10/04/20 09:31 Protonix 40 Mg Iv IV 11/02/20 09:59 40 mg Q24H10 FABRICIO Administration Ropinirole HCl 2 mg 10/03/20 10:00 10/04/20 14:24 Requip 2mg Tab PO 11/02/20 09:59 2 mg TID FABRICIO Administration Discontinued Medications Generic Name Dose Route Start Last Admin Trade Name Jorge PRN Reason Stop Dose Admin Albuterol/Ipratropium 3 ml 10/02/20 20:16 10/02/20 20:33 Duoneb 0.5-3 Mg/3 Ml Neb IH 10/02/20 20:17 3 ml STAT ONE Administration Albuterol/Ipratropium Confirm 10/02/20 20:31 Duoneb 0.5-3 Mg/3 Ml Neb Administered 10/02/20 20:32 Dose 3 ml IH .STK-MED ONE Cyclobenzaprine HCl 10 mg 10/02/20 17:35 10/02/20 17:53 Cyclobenzaprine 10 Mg PO 10/02/20 17:36 10 mg STAT ONE Administration Cyclobenzaprine HCl Confirm 10/02/20 17:52 Cyclobenzaprine 10 Mg Administered 10/02/20 17:53 Dose 10 mg .ROUTE .STK-MED ONE Doxycycline Hyclate Confirm 10/02/20 21:40 Vibramycin 100 Mg Administered 10/02/20 21:41 Dose 100 mg IV .STK-MED ONE Doxycycline Hyclate 100 mg/ 100 mls @ 100 mls/hr 10/02/20 22:00 10/02/20 21:45 Dextrose IV 11/01/20 21:59 100 mls/hr Q12HT FABRICIO Administration Dextrose Confirm 10/02/20 21:40 D5w 100ml Mini Bag 100 Ml Administered 10/02/20 21:41 Dose 100 mls @ ud IV .STK-MED ONE Doxycycline Hyclate 100 mg/ 100 mls @ 100 mls/hr 10/03/20 10:00 10/03/20 10:24 Dextrose IV 11/02/20 09:59 100 mls/hr Q12HT FABRICIO Administration Levofloxacin 500 mg 10/03/20 10:00 10/03/20 15:58 Levofloxacin 500 Mg Tablet PO 11/02/20 09:59 Not Given DAILY FABRICIO Methylprednisolone Sodium Succinate 125 mg 10/02/20 20:15 10/02/20 20:45 Solu-Medrol 125 Mg IV 10/02/20 20:16 125 mg STAT ONE Administration Methylprednisolone Sodium Succinate Confirm 10/02/20 20:44 Solu-Medrol 125 Mg Administered 10/02/20 20:45 Dose 125 mg .ROUTE .STK-MED ONE Methylprednisolone Sodium Succinate 80 mg 10/02/20 23:00 10/03/20 03:48 Solu-Medrol 125 Mg IV 11/01/20 22:59 80 mg Q6H FABRICIO Administration Methylprednisolone Sodium Succinate Confirm 10/03/20 03:44 Solu-Medrol 125 Mg Administered 10/03/20 03:45 Dose 125 mg .ROUTE .STK-MED ONE Methylprednisolone Sodium Succinate 80 mg 10/03/20 09:00 10/04/20 09:29 Solu-Medrol 125 Mg IV 11/02/20 08:59 80 mg Q6H FABRICIO Administration Morphine Sulfate 2 mg 10/02/20 23:00 Morphine Sulfate 2 Mg Inj IV 10/07/20 22:59 Q4H PRN PRN PAIN Oxycodone/Acetaminophen 2 tab 10/02/20 17:34 10/02/20 17:52 Percocet Tablet 5/325mg PO 10/02/20 17:35 2 tab STAT ONE Administration Oxycodone/Acetaminophen Confirm 10/02/20 17:51 Percocet Tablet 5/325mg Administered 10/02/20 17:52 Dose 2 tab .ROUTE .STK-MED ONE Intake & Output (Last 24 hours) 10/02/20 10/03/20 10/04/20 10/05/20 11:59 11:59 11:59 11:59 Intake Total 740 2252 936 Output Total 1350 1100 Balance 740 902 -164 Weight 105.5 kg 105.5 kg Orders (Last 24 hours) Category Date Time Status CHEST 1 VIEW (PORTABLE) Routine Exams 10/05/20 06:00 Ordered CBC W DIFF AM.LAB Lab 10/05/20 04:00 Ordered CBC W DIFF AM.LAB Lab 10/06/20 04:00 Ordered CMP AM.LAB Lab 10/05/20 04:00 Ordered CMP AM.LAB Lab 10/06/20 04:00 Ordered MAG [MAGNESIUM] AM.LAB Lab 10/05/20 04:00 Ordered Methylprednis Sod Succ 125 mg* [solu-MEDROL 125 MG] Med 10/04/20 21:00 Active 80 mg IV Q12H Patient Care Notes (Last 24 hours) 10/04/20 16:27 Nursing Note by Jessica Francois DR. AT BEDSIDE, ROUNDING ON PT. PLAN TO KEEP PT FOR 1-2 MORE DAYS, LABS ORDERED FOR AM ALONG WITH XRAY. Initialized on 10/04/20 16:27 - END OF NOTE 10/04/20 16:06 Physical Therapy Note by Rupa Shirley PT. SEEN BID THIS DATE BY PT. C/O INCREASED SOB. PT. ABLE TO PERFORM SIT TO STAND MOD I. AMBULATES ~ 40' W/ ROLLER WALKER AND CGA ON 4L 02. O2 SATS 90- 91%. PT. IS COUGHING MORE TODAY AND PRODUCING SECRETIONS AT TIMES. WALKER DOES IMPROVE TRUNK POSTURE AND GAIT STEADINESS OVERALL. PT. HAS VERY SLOW PACE AND DECREASED FOOT CLEARANCE. C/O HEAVINESS IN LES. PT. TO AMBULATE W/ NSG OVER THE WEEKEND. WILL CONT. PT NEXT WEEK. RUPA SHIRLEY, PT Initialized on 10/04/20 16:06 - END OF NOTE 10/04/20 08:16 Nursing Note by Jessica Francois switched from oxymizer to 4L NC - o2 sat on 4L NC @94% Initialized on 10/04/20 08:16 - END OF NOTE 10/04/20 07:36 Nursing Note by Jessica Francois O2sat on 5L oxymask @ 95%-fio2 decreased to 4L oxymask and o2 sat @ 93% Initialized on 10/04/20 07:36 - END OF NOTE Code(s): J44.1 - CHRONIC OBSTRUCTIVE PULMONARY DISEASE W (ACUTE) EXACERBATION (2) Acute respiratory failure with hypoxia Current Visit: Yes Status: Acute Code(s): J96.01 - ACUTE RESPIRATORY FAILURE WITH HYPOXIA (3) Low back pain potentially associated with spinal stenosis Current Visit: Yes Status: Chronic Code(s): M54.5 - LOW BACK PAIN (4) HTN (hypertension) Current Visit: Yes Status: Chronic Code(s): I10 - ESSENTIAL (PRIMARY) HYPERTENSION
[2020-10-05] MEDS: Sodium Chloride 0.9% 1000 ML 1,000 ML IV SCH (04:15)
[2020-10-05] MEDS: xanAX 0.25 MG PO SCH ×3 (04:17→21:01)
[2020-10-05] MEDS ORDERED: Lasix 20 MG/2 ML ONE (06:24)
[2020-10-05 06:36] LABS: Hematocrit 47.5 % (35-47); Hemoglobin 14.4 gm/dl (12.0-16.0); Mean Cell Volume 95.8 fl (78-100); Mean Corpuscular Hgb Concent. 30.3 g/dl (32-36); Mean Platelet Volume 10.8 fl (7.5-11.0); Platelet Count 202 K/mm3 (150-450); Red Blood Count 4.96 M/mm3 (4.1-5.4); Red Cell Distribution Width 15.9 % (11.5-14.0)
[2020-10-05 06:51] LABS: ALBUMIN 3.7 g/dL (3.5-5.0); ALKALINE PHOSPHATASE 60 U/L (38-126); ANION GAP 9.7 MEQ/L (5-15); BLOOD UREA NITROGEN 27 mg/dL (7-17); CHLORIDE 100 mmol/L (98-107); Calcium 9.4 mg/dL (8.4-10.2); Carbon Dioxide 30 mmol/L (22-30); Creatinine 1 0.81 mg/dL (0.52-1.04); EST GLOMERULAR FILTRATION RATE > 60.0 ML/MIN; Glucose 307 mg/dL (74-106); MAGNESIUM 2.2 mg/dL (1.6-2.3); Potassium 4.7 mmol/L (3.5-5.1); SGOT/AST 28 U/L (14-36); SGPT/ALT 36 U/L (0-35); SODIUM 136 mmol/L (137-145); Total Protein 7.1 g/dL (6.3-8.2)
[2020-10-05] MEDS: DUONEB 0.5-3 MG/3 ml Neb IH SCH ×4 (06:57→19:32)
[2020-10-05] MEDS ORDERED: Lasix 40 MG/4 ML IV ONE (07:00)
[2020-10-05 07:47] LABS: Lymphocytes 7 % (24-44); Monocyte 3 % (0.0-12.0); Neutrophils 90 % (36.0-66.0); Total Cells Counted 100
[2020-10-05 07:48] LABS: Platelet Estimate NORMAL (NORMAL)
[2020-10-05] MEDS: Vibramycin 100 MG PO SCH (08:01)
[2020-10-05] MEDS: TYLENOL 325 MG PO PRN ×2 (08:01→12:07)
[2020-10-05] MEDS: solu-MEDROL 125 MG IV SCH ×2 (08:02→21:01)
[2020-10-05] MEDS: REQUIP 2MG TAB PO SCH ×3 (08:11→21:01)
[2020-10-05] MEDS: Zestril 10 MG PO SCH (08:13)
[2020-10-05] MEDS: Ditropan XL 5 MG PO SCH (08:13)
[2020-10-05] MEDS: hydroDIURIL 25 MG PO SCH (08:14)
[2020-10-05] MEDS: PROTONIX 40 MG IV IV SCH (08:19)
--- NOTE | 2020-10-05 09:23 | XRAY ---
Indication: COPD. Comparison: October 02, 2020. Portable chest less inflated accentuating cardiopulmonary structures. Again prominent bilateral interstitial opacities with new small right base effusion. Stable lingula discoid atelectasis/scarring. Remaining chest unremarkable.
[2020-10-05] MEDS: ROCEPHIN 1 Gm-D5w 50 ml Bag** 1 G/50 ML IVPB IV SCH (16:18)
--- NOTE | 2020-10-05 16:32 | PCM.NOTE ---
Date and Time: 10/05/20 1631 Subjective Assessment: still very short of breath - Review of Systems Constitutional: No Fever, No Chills Eyes: No Symptoms Ears, Nose, & Throat: No Symptoms Respiratory: Short Of Breath, Wheezing, No Cough Cardiac: Edema, No Chest Pain, No Syncope Abdominal/Gastrointestinal: No Abdominal Pain, No Nausea, No Vomiting, No Diarrhea Genitourinary Symptoms: No Dysuria Musculoskeletal: No Back Pain, No Neck Pain Skin: No Rash Neurological: No Dizziness, No Focal Weakness, No Sensory Changes Psychological: No Symptoms Endocrine: No Symptoms Hematologic/Lymphatic: No Symptoms Immunological/Allergic: No Symptoms Objective Exam General Appearance: no apparent distress, alert Neurologic Exam: alert, 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, cooperative, normal mood/affect, nml cerebellar function, sensation nml, No motor deficits Skin Exam: normal color, warm, dry Eye Exam: PERRL, EOMI, eyes nml inspection Ears, Nose, Throat Exam: normal ENT inspection, pharynx normal, moist mucous membranes Neck Exam: normal inspection, non-tender, supple, full range of motion Respiratory Exam: lungs clear, diminished breath sounds, crackles/rales, rhonchi, wheezing, No respiratory distress Cardiovascular Exam: regular rate/rhythm, normal heart sounds Gastrointestinal/Abdomen Exam: soft, No tenderness, No mass Extremity Exam: normal inspection, normal range of motion Back Exam: normal inspection, normal range of motion, No CVA tenderness, No vertebral tenderness Pelvic Exam: deferred Rectal Exam: deferred OBJECTIVE DATA Vital Signs: Vital Signs - 24 hr Temp Pulse Resp BP Pulse Ox 10/05/20 15:03 100 H 18 95 10/05/20 12:00 97.2 F 104 H 18 196/84 91 L 10/05/20 10:43 88 18 94 L 10/05/20 07:22 98.7 F 87 18 188/79 94 L 10/05/20 07:06 98 H 18 94 L 10/05/20 04:00 98.2 F 96 H 16 191/83 93 L 10/05/20 00:00 97.7 F 102 H 24 184/81 94 L 10/04/20 22:02 119 H 24 89 L 10/04/20 20:00 98.2 F 102 H 22 136/65 93 L Oxygen-Last 24 hours Oxygen Flowrate (L/min)-RT 4 Pain Assessment - Last Documented Pain Intensity [Posterior 10 Medial Distal Back] Pain Intensity 5 [facility] Scale [facility] Intake and Output: Intake & Output 10/03/20 10/04/20 10/05/20 10/06/20 11:59 11:59 11:59 11:59 Intake Total 740 2252 3351 240 Output Total 1350 3800 1500 Balance 740 041 -983 -1268 Weight 105.5 kg 105.5 kg 110.5 kg Lab Results: Lab Results-Last 24 Hours 10/05/20 10/05/20 Range/Units 06:20 06:20 WBC 18.0 H (4.0-10.5) K/mm3 RBC 4.96 (4.1-5.4) M/mm3 Hgb 14.4 (12.0-16.0) gm/dl Hct 47.5 H (35-47) % MCV 95.8 (78-100) fl MCH 29.0 (26-32) pg MCHC 30.3 L (32-36) g/dl RDW 15.9 H (11.5-14.0) % Plt Count 202 (150-450) K/mm3 MPV 10.8 (7.5-11.0) fl Segmented Neutrophils 90 H (36.0-66.0) % Lymphocytes (Manual) 7 L (24-44) % Monocytes (Manual) 3 (0.0-12.0) % Platelet Estimate NORMAL (NORMAL) RBC Morphology NORMAL Sodium 136 L (137-145) mmol/L Potassium 4.7 (3.5-5.1) mmol/L Chloride 100 (98-107) mmol/L Carbon Dioxide 30 (22-30) mmol/L Anion Gap 9.7 (5-15) MEQ/L BUN 27 H (7-17) mg/dL Creatinine 0.81 (0.52-1.04) mg/dL Estimated GFR > 60.0 ML/MIN Glucose 307 H (74-106) mg/dL Calcium 9.4 (8.4-10.2) mg/dL Magnesium 2.2 (1.6-2.3) mg/dL Total Bilirubin 0.30 (0.2-1.3) mg/dL AST 28 (14-36) U/L ALT 36 H (0-35) U/L Alkaline Phosphatase 60 (38-126) U/L Serum Total Protein 7.1 (6.3-8.2) g/dL Albumin 3.7 (3.5-5.0) g/dL Radiology Exams: Radiology Procedures Category Date Time Status CHEST 1 VIEW (PORTABLE) Routine Exams 10/05/20 06:00 Completed CHEST 1 VIEW (PORTABLE) Routine Exams 10/06/20 08:00 Ordered Multi-Disciplinary Progress Notes: Multi-Disciplinary Progress Notes 10/05/20 14:30 (created 10/05/20 15:25) Case Management Note by Alicia Palacios WHILE PATIENT UP TO RESTROOM SATURATION DROPPED TO 88% WHILE ON 4L/NC Initialized on 10/05/20 15:25 - END OF NOTE Assessment/Plan (1) COPD exacerbation Current Visit: Yes Status: Acute Assessment & Plan: Chief Complaint Diagnosis COPD FAILED OUTPATIENT TREATMENT Allergies Allergy/AdvReac Type Severity Reaction Status Date / Time codeine Allergy Intermediate rash, Verified 10/02/20 17:09 itching cefaclor [From Ceclor] Allergy Mild Rash Verified 10/02/20 17:09 Penicillins Allergy Mild Swelling Verified 10/02/20 17:09 bacitracin AdvReac Mild Itching Verified 10/03/20 12:22 [From Neosporin ([id number])] bacitracin zinc AdvReac Mild Itching Verified 10/03/20 12:22 [From Neosporin ([id number])] levofloxacin [From Levaquin] AdvReac Mild itch Verified 10/03/20 12:22 neomycin sulfate AdvReac Mild itch Verified 10/03/20 12:22 [From Neosporin ([id number])] polymyxin B AdvReac Mild Itching Verified 10/03/20 12:22 [From Neosporin ([id number])] Vital Signs (Last 24 hours) Temp Pulse Resp BP Pulse Ox 10/05/20 15:03 100 H 18 95 10/05/20 12:00 97.2 F 104 H 18 196/84 91 L 10/05/20 10:43 88 18 94 L 10/05/20 07:22 98.7 F 87 18 188/79 94 L 10/05/20 07:06 98 H 18 94 L 10/05/20 04:00 98.2 F 96 H 16 191/83 93 L 10/05/20 00:00 97.7 F 102 H 24 184/81 94 L 10/04/20 22:02 119 H 24 89 L 10/04/20 20:00 98.2 F 102 H 22 136/65 93 L Home Medications Medication Instructions Recorded Confirmed Last Taken Type Lisinopril/Hydrochlorothiazide 1 each PO DAILY 10/03/20 10/03/20 Unknown History [Lisinopril-Hctz 10-12.5 mg Tab] Oxybutynin Chloride [Oxybutynin 5 mg PO DAILY 10/03/20 10/03/20 Unknown History Chloride ER] Current Medications Generic Name Dose Route Start Last Admin Trade Name Freq PRN Reason Stop Dose Admin Acetaminophen 650 mg 10/02/20 23:00 10/05/20 12:07 Tylenol 325 Mg PO 11/01/20 22:59 650 mg Q4H PRN PRN Administration PAIN AND/OR FEVER Albuterol/Ipratropium 3 ml 10/03/20 07:00 10/05/20 14:59 Duoneb 0.5-3 Mg/3 Ml Neb IH 11/02/20 06:59 3 ml QIDRT FABRICIO Administration Albuterol/Ipratropium 3 ml 10/03/20 00:46 10/03/20 00:51 Duoneb 0.5-3 Mg/3 Ml Neb IH 11/02/20 00:45 3 ml Q4HPRN PRN Administration SHORTNESS OF BREATH/WHEEZING Alprazolam 0.25 mg 10/03/20 10:00 10/05/20 16:11 Xanax 0.25 Mg PO 11/02/20 09:59 0.25 mg TID FABRICIO Administration Clonidine 0.1 mg 10/05/20 15:11 Catapres 0.1 Mg PO 11/04/20 15:10 Q8H PRN PRN HYPERTENSION Furosemide 40 mg 10/05/20 17:00 Lasix 40 Mg/4 Ml IV 11/04/20 16:59 BID DIURETIC FABRICIO Hydrochlorothiazide 12.5 mg 10/03/20 10:00 10/05/20 08:14 Hydrodiuril 25 Mg PO 11/02/20 09:59 12.5 mg DAILY FABRICIO Administration Sodium Chloride 1,000 mls @ 50 mls/hr 10/03/20 12:00 10/05/20 04:15 Sodium Chloride 0.9% 1000 Ml IV 11/02/20 11:59 50 mls/hr .Q20H FABRICIO Administration Ceftriaxone Sodium/Dextrose 1 g in 50 mls @ 100 mls/hr 10/05/20 16:00 10/05/20 16:18 Rocephin 1 Gm-D5w 50 Ml Bag IV 11/04/20 15:59 100 mls/hr Q24H10 FABRICIO Administration Azithromycin 500 mg in 250 mls @ 250 mls/hr 10/05/20 17:00 Zithromax 500 Mg/ 250 Ml Nacl Premix IV 11/04/20 16:59 Q24H10 FABRICIO Insulin Human Lispro 0 unit 10/02/20 23:00 Humalog SQ 11/01/20 22:59 UD PRN HYPERGLYCEMIA Lisinopril 10 mg 10/03/20 10:00 10/05/20 08:13 Zestril 10 Mg PO 11/02/20 09:59 10 mg DAILY FABRICIO Administration Methylprednisolone Sodium Succinate 80 mg 10/04/20 21:00 10/05/20 08:02 Solu-Medrol 125 Mg IV 11/03/20 20:59 80 mg Q12H FABRICIO Administration Ondansetron HCl 4 mg 10/02/20 23:00 Zofran 4 Mg/2 Ml Vial IV 11/01/20 22:59 Q6H PRN PRN NAUSEA/VOMITING Oxybutynin Chloride 5 mg 10/03/20 10:00 10/05/20 08:13 Ditropan Xl 5 Mg PO 11/02/20 09:59 5 mg DAILY FABRICIO Administration Pantoprazole Sodium 40 mg 10/03/20 10:00 10/05/20 08:19 Protonix 40 Mg Iv IV 11/02/20 09:59 40 mg Q24H10 FABRICIO Administration Potassium Chloride 10 meq 10/05/20 22:00 Klor Con 10 Meq PO 11/04/20 21:59 BID FABRICIO Ropinirole HCl 2 mg 10/03/20 10:00 10/05/20 16:11 Requip 2mg Tab PO 11/02/20 09:59 2 mg TID FABRICIO Administration Discontinued Medications Generic Name Dose Route Start Last Admin Trade Name Jorge PRN Reason Stop Dose Admin Albuterol/Ipratropium 3 ml 10/02/20 20:16 10/02/20 20:33 Duoneb 0.5-3 Mg/3 Ml Neb IH 10/02/20 20:17 3 ml STAT ONE Administration Albuterol/Ipratropium Confirm 10/02/20 20:31 Duoneb 0.5-3 Mg/3 Ml Neb Administered 10/02/20 20:32 Dose 3 ml IH .STK-MED ONE Cyclobenzaprine HCl 10 mg 10/02/20 17:35 10/02/20 17:53 Cyclobenzaprine 10 Mg PO 10/02/20 17:36 10 mg STAT ONE Administration Cyclobenzaprine HCl Confirm 10/02/20 17:52 Cyclobenzaprine 10 Mg Administered 10/02/20 17:53 Dose 10 mg .ROUTE .STK-MED ONE Doxycycline Hyclate Confirm 10/02/20 21:40 Vibramycin 100 Mg Administered 10/02/20 21:41 Dose 100 mg IV .STK-MED ONE Doxycycline Hyclate 100 mg 10/03/20 17:00 10/05/20 08:01 Vibramycin 100 Mg PO 11/02/20 16:59 100 mg BIDWMEALS FABRICIO Administration Furosemide 40 mg 10/05/20 07:00 10/05/20 06:29 Lasix 40 Mg/4 Ml IV 10/05/20 07:01 40 mg ONCE ONE Administration Furosemide Confirm 10/05/20 06:24 Lasix 20 Mg/2 Ml Administered 10/05/20 06:25 Dose 40 mg .ROUTE .STK-MED ONE Doxycycline Hyclate 100 mg/ 100 mls @ 100 mls/hr 10/02/20 22:00 10/02/20 21:45 Dextrose IV 11/01/20 21:59 100 mls/hr Q12HT FABRICIO Administration Dextrose Confirm 10/02/20 21:40 D5w 100ml Mini Bag 100 Ml Administered 10/02/20 21:41 Dose 100 mls @ ud IV .STK-MED ONE Doxycycline Hyclate 100 mg/ 100 mls @ 100 mls/hr 10/03/20 10:00 10/03/20 10:24 Dextrose IV 11/02/20 09:59 100 mls/hr Q12HT FABRICIO Administration Levofloxacin 500 mg 10/03/20 10:00 10/03/20 15:58 Levofloxacin 500 Mg Tablet PO 11/02/20 09:59 Not Given DAILY FABRICIO Methylprednisolone Sodium Succinate 125 mg 10/02/20 20:15 10/02/20 20:45 Solu-Medrol 125 Mg IV 10/02/20 20:16 125 mg STAT ONE Administration Methylprednisolone Sodium Succinate Confirm 10/02/20 20:44 Solu-Medrol 125 Mg Administered 10/02/20 20:45 Dose 125 mg .ROUTE .STK-MED ONE Methylprednisolone Sodium Succinate 80 mg 10/02/20 23:00 10/03/20 03:48 Solu-Medrol 125 Mg IV 11/01/20 22:59 80 mg Q6H FABRICIO Administration Methylprednisolone Sodium Succinate Confirm 10/03/20 03:44 Solu-Medrol 125 Mg Administered 10/03/20 03:45 Dose 125 mg .ROUTE .STK-MED ONE Methylprednisolone Sodium Succinate 80 mg 10/03/20 09:00 10/04/20 09:29 Solu-Medrol 125 Mg IV 11/02/20 08:59 80 mg Q6H FABRICIO Administration Morphine Sulfate 2 mg 10/02/20 23:00 Morphine Sulfate 2 Mg Inj IV 10/07/20 22:59 Q4H PRN PRN PAIN Oxycodone/Acetaminophen 2 tab 10/02/20 17:34 10/02/20 17:52 Percocet Tablet 5/325mg PO 10/02/20 17:35 2 tab STAT ONE Administration Oxycodone/Acetaminophen Confirm 10/02/20 17:51 Percocet Tablet 5/325mg Administered 10/02/20 17:52 Dose 2 tab .ROUTE .STK-MED ONE Intake & Output (Last 24 hours) 10/03/20 10/04/20 10/05/20 10/06/20 11:59 11:59 11:59 11:59 Intake Total 740 2252 3351 240 Output Total 1350 3800 1500 Balance 740 936 -764 -6550 Weight 105.5 kg 105.5 kg 110.5 kg Laboratory Results (Last 24 hours) 10/05/20 10/05/20 06:20 06:20 WBC 18.0 H RBC 4.96 Hgb 14.4 Hct 47.5 H MCV 95.8 MCH 29.0 MCHC 30.3 L RDW 15.9 H Plt Count 202 MPV 10.8 Segmented Neutrophils 90 H Lymphocytes (Manual) 7 L Monocytes (Manual) 3 Platelet Estimate NORMAL RBC Morphology NORMAL Sodium 136 L Potassium 4.7 Chloride 100 Carbon Dioxide 30 Anion Gap 9.7 BUN 27 H Creatinine 0.81 Estimated GFR > 60.0 Glucose 307 H Calcium 9.4 Magnesium 2.2 Total Bilirubin 0.30 AST 28 ALT 36 H Alkaline Phosphatase 60 Serum Total Protein 7.1 Albumin 3.7 Orders (Last 24 hours) Category Date Time Status Change admission status [Change to Full Admit] ROUTINE Care 10/05/20 14:15 Active CHEST 1 VIEW (PORTABLE) Routine Exams 10/05/20 06:00 Completed CHEST 1 VIEW (PORTABLE) Routine Exams 10/06/20 08:00 Ordered CBC W DIFF AM.LAB Lab 10/05/20 06:20 Completed CBC W DIFF AM.LAB Lab 10/06/20 04:00 Ordered CMP AM.LAB Lab 10/05/20 06:20 Completed CMP AM.LAB Lab 10/06/20 04:00 Ordered MAG [MAGNESIUM] AM.LAB Lab 10/05/20 06:20 Completed MAG [MAGNESIUM] AM.LAB Lab 10/06/20 04:00 Ordered Manual Differential NC Routine Lab 10/05/20 06:20 Completed Azithromycin 500 mg/250 ml [Zithromax 500 MG/ 250 ML Med 10/05/20 17:00 Active NaCl Premix] 500 mg in 250 ml IV Q24H10 Ceftriaxone 1 GM/50 ML PREMIX* [ROCEPHIN 1 Gm-D5w 50 ml Med 10/05/20 16:00 Active Bag] 1 g in 50 ml IV Q24H10 Clonidine HCl 0.1 mg [Catapres 0.1 MG] Med 10/05/20 15:11 Active 0.1 mg PO Q8H PRN PRN Furosemide 20 mg/2 ml [Lasix 20 MG/2 ML] Med 10/05/20 06:24 Discontinued 40 mg .ROUTE .STK-MED ONE Furosemide 40 mg/4 ml [Lasix 40 MG/4 ML] Med 10/05/20 17:00 Active 40 mg IV BID DIURETIC Furosemide 40 mg/4 ml [Lasix 40 MG/4 ML] Med 10/05/20 07:00 Discontinued 40 mg IV ONCE ONE Methylprednis Sod Succ 125 mg* [solu-MEDROL 125 MG] Med 10/04/20 21:00 Active 80 mg IV Q12H Potassium Chloride 10 Meq Tab* [Klor Con 10 MEQ] Med 10/05/20 22:00 Active 10 meq PO BID Patient Care Notes (Last 24 hours) 10/05/20 15:02 Nursing Note by Paxton Shell ROUNDED WITH DR LINDER, NEW ORDER TO CHANGE ABX TO ROCHEPHIN AND ZITHROMAX IV, LASIX 40MG IV BID, K 10MEQ PO BID, CLONIDINE 0.1MG PO Q8HR PRN FOR SYSTOLIC BP >160, CBC, CMP MAG AND CXR IN AM Initialized on 10/05/20 15:02 - END OF NOTE 10/05/20 14:30 (created 10/05/20 15:25) Case Management Note by Alicia Palacios WHILE PATIENT UP TO RESTROOM SATURATION DROPPED TO 88% WHILE ON 4L/NC Initialized on 10/05/20 15:25 - END OF NOTE 10/05/20 08:22 Nursing Note by Paxton Shell PT'S AM MEDS GIVEN EARLY PER PT REQUEST Initialized on 10/05/20 08:22 - END OF NOTE 10/05/20 06:17 SBAR Note by Parish Solomon SITUATION I am calling about ARIELLA HODGES the patient's code status is Full Code The problem I am calling about is: Notified Dr Linder of BP of 192/72 manually and 5 kg weight gain. He ordered Lasix 40 mg IV once. ASSESSMENT RECOMMENDATION Physician notified at 0617 New Orders received: Vital Signs (Last 4 hours) Temp Pulse Resp BP Pulse Ox 10/05/20 04:00 98.2 F 96 H 16 191/83 93 L Diagnois, Code Status Date of Arrival on Unit 10/02/20 Admitted From Emergency Dept Diagnosis c/o low back pain for 1 week Resucitation Status Full Code Intake and Output 24 Hours 10/04/20 10/05/20 06:59 06:59 Intake Total 2374 3591 Output Total 1050 2800 Balance 1322 791 Weight 105.5 kg 110.5 kg Intake: Intake, Oral Amount 1680 2520 Intake, IV Amount 692 1071 Output: Output, Urine Amount 1050 2800 Other: Number of Voids 4 Physical Assessment Anxiety Level None,at ease,Awake,Calm Mental Status Alert Patient Orientation Person,Place,Time Coma Scale Total 15 Breath Sounds [Posterior Wheezes Bilateral Throughout] Breath Sounds [Anterior/ Clear,Diminished Posterior] Breath Sounds [Posterior Upper Rhonchi Lobe] Breath Sounds [Posterior Clear Bilateral Bases] Breath Sounds [Anterior Diminished Bilateral Throughout] Breath Sounds [Anterior/ Wheezes Posterior Bilateral Throughout ] Cardiac Rhythm-[facility] Sinus Rhythm Bowel Sounds [All Quadrants] Present Abdomen Description Soft,Large,Round,Non-Tender Urine Appearance Not Assessed Skin Color Normal for Race Skin Temperature Warm Pain Scale (Last 24 Hours) Pain Intensity 0 Pain Intensity 0 Pain Intensity 0 PAST MEDICAL HISTORY Neurological History No Pertinent History ENT History No Pertinent History Endocrine Medical History No Pertinent History Respiratory History COPD,Emphysema Cardiac History No Pertinent History GI Medical History No Pertinent History History Other Reproductive Disorders No Pertinent History Pyscho-Social History No Pertinent History Communicable Disease No Pertinent History Comment leaky bladder Orders (Last 24 Hours) Category Date Time Status CHEST 1 VIEW (PORTABLE) Routine Exams 10/05/20 06:00 Taken CBC W DIFF AM.LAB Lab 10/05/20 04:00 Ordered CBC W DIFF AM.LAB Lab 10/06/20 04:00 Ordered CMP AM.LAB Lab 10/05/20 04:00 Ordered CMP AM.LAB Lab 10/06/20 04:00 Ordered MAG [MAGNESIUM] AM.LAB Lab 10/05/20 04:00 Ordered Methylprednis Sod Succ 125 mg* [solu-MEDROL 125 MG] Med 10/04/20 21:00 Active 80 mg IV Q12H Active Visit Medications Generic Name Dose Route Start Last Admin Trade Name Freq PRN Reason Stop Dose Admin Acetaminophen 650 mg 10/02/20 23:00 10/04/20 00:37 Tylenol 325 Mg PO 11/01/20 22:59 650 mg Q4H PRN PRN Administration PAIN AND/OR FEVER Albuterol/Ipratropium 3 ml 10/03/20 07:00 10/04/20 19:32 Duoneb 0.5-3 Mg/3 Ml Neb IH 11/02/20 06:59 3 ml QIDRT FABRICIO Administration Albuterol/Ipratropium 3 ml 10/03/20 00:46 10/03/20 00:51 Duoneb 0.5-3 Mg/3 Ml Neb IH 11/02/20 00:45 3 ml Q4HPRN PRN Administration SHORTNESS OF BREATH/WHEEZING Alprazolam 0.25 mg 10/03/20 10:00 10/05/20 04:17 Xanax 0.25 Mg PO 11/02/20 09:59 0.25 mg TID FABRICIO Administration Doxycycline Hyclate 100 mg 10/03/20 17:00 10/04/20 16:15 Vibramycin 100 Mg PO 11/02/20 16:59 100 mg BIDWMEALS FABRICIO Administration Hydrochlorothiazide 12.5 mg 10/03/20 10:00 10/04/20 09:31 Hydrodiuril 25 Mg PO 11/02/20 09:59 12.5 mg DAILY FABRICIO Administration Sodium Chloride 1,000 mls @ 50 mls/hr 10/03/20 12:00 10/05/20 04:15 Sodium Chloride 0.9% 1000 Ml IV 11/02/20 11:59 50 mls/hr .Q20H FABRICIO Administration Insulin Human Lispro 0 unit 10/02/20 23:00 Humalog SQ 11/01/20 22:59 UD PRN HYPERGLYCEMIA Lisinopril 10 mg 10/03/20 10:00 10/04/20 09:30 Zestril 10 Mg PO 11/02/20 09:59 10 mg DAILY FABRICIO Administration Methylprednisolone Sodium Succinate 80 mg 10/04/20 21:00 10/04/20 21:03 Solu-Medrol 125 Mg IV 11/03/20 20:59 80 mg Q12H FABRICIO Administration Ondansetron HCl 4 mg 10/02/20 23:00 Zofran 4 Mg/2 Ml Vial IV 11/01/20 22:59 Q6H PRN PRN NAUSEA/VOMITING Oxybutynin Chloride 5 mg 10/03/20 10:00 10/04/20 09:30 Ditropan Xl 5 Mg PO 11/02/20 09:59 5 mg DAILY FABRICIO Administration Pantoprazole Sodium 40 mg 10/03/20 10:00 10/04/20 09:31 Protonix 40 Mg Iv IV 11/02/20 09:59 40 mg Q24H10 FABRICIO Administration Ropinirole HCl 2 mg 10/03/20 10:00 10/04/20 21:03 Requip 2mg Tab PO 11/02/20 09:59 2 mg TID FABRICIO Administration Home Medications Medication Instructions Recorded Confirmed Last Taken Type Lisinopril/Hydrochlorothiazide 1 each PO DAILY 10/03/20 10/03/20 Unknown History [Lisinopril-Hctz 10-12.5 mg Tab] Oxybutynin Chloride [Oxybutynin 5 mg PO DAILY 10/03/20 10/03/20 Unknown History Chloride ER] Initialized on 10/05/20 06:17 - END OF NOTE Code(s): J44.1 - CHRONIC OBSTRUCTIVE PULMONARY DISEASE W (ACUTE) EXACERBATION (2) Acute respiratory failure with hypoxia Current Visit: Yes Status: Acute Code(s): J96.01 - ACUTE RESPIRATORY FAILURE WITH HYPOXIA (3) Low back pain potentially associated with spinal stenosis Current Visit: Yes Status: Chronic Code(s): M54.5 - LOW BACK PAIN (4) HTN (hypertension) Current Visit: Yes Status: Chronic Qualifiers: Hypertension type: essential hypertension Qualified Code(s): I10 - Essential (primary) hypertension Code(s): I10 - ESSENTIAL (PRIMARY) HYPERTENSION
[2020-10-05] MEDS: Lasix 40 MG/4 ML IV SCH (17:46)
[2020-10-05] MEDS: Zithromax 500 MG/ 250 ML NaCl Premix 500 MG/250 ML IVPB IV SCH (17:46)
[2020-10-05] MEDS: Klor Con 10 MEQ PO SCH (21:01)
[2020-10-05] MEDS: Catapres 0.1 MG PO PRN (21:01)
[2020-10-06] MEDS: DUONEB 0.5-3 MG/3 ml Neb IH PRN (00:10)
[2020-10-06] MEDS: Sodium Chloride 0.9% 1000 ML 1,000 ML IV SCH (03:50)
[2020-10-06] MEDS: Catapres 0.1 MG PO PRN ×2 (04:00→16:31)
[2020-10-06] MEDS: DUONEB 0.5-3 MG/3 ml Neb IH SCH ×4 (07:00→19:36)
[2020-10-06 07:18] LABS: Hematocrit 47.9 % (35-47); Hemoglobin 14.7 gm/dl (12.0-16.0); Mean Cell Volume 94.5 fl (78-100); Mean Corpuscular Hgb Concent. 30.7 g/dl (32-36); Mean Platelet Volume 10.8 fl (7.5-11.0); Platelet Count 195 K/mm3 (150-450); Red Blood Count 5.07 M/mm3 (4.1-5.4); Red Cell Distribution Width 15.8 % (11.5-14.0); White Blood Count 11.5 K/mm3 (4.0-10.5)
[2020-10-06 07:27] LABS: ALBUMIN 3.6 g/dL (3.5-5.0); ALKALINE PHOSPHATASE 58 U/L (38-126); ANION GAP 11.8 MEQ/L (5-15); BLOOD UREA NITROGEN 32 mg/dL (7-17); CHLORIDE 94 mmol/L (98-107); Calcium 9.1 mg/dL (8.4-10.2); Carbon Dioxide 32 mmol/L (22-30); Creatinine 1 0.59 mg/dL (0.52-1.04); EST GLOMERULAR FILTRATION RATE > 60.0 ML/MIN; Glucose 328 mg/dL (74-106); Potassium 4.3 mmol/L (3.5-5.1); SGOT/AST 34 U/L (14-36); SGPT/ALT 60 U/L (0-35); SODIUM 133 mmol/L (137-145)
--- NOTE | 2020-10-06 08:06 | PCM.NOTE ---
Date and Time: 10/06/20804 Subjective Assessment: doing much better today - Review of Systems Constitutional: No Fever, No Chills Eyes: No Symptoms Ears, Nose, & Throat: No Symptoms Respiratory: No Cough, No Short Of Breath Cardiac: No Chest Pain, No Edema, No Syncope Abdominal/Gastrointestinal: No Abdominal Pain, No Nausea, No Vomiting, No Diarrhea Genitourinary Symptoms: No Dysuria Musculoskeletal: No Back Pain, No Neck Pain Skin: No Rash Neurological: No Dizziness, No Focal Weakness, No Sensory Changes Psychological: No Symptoms Endocrine: No Symptoms Hematologic/Lymphatic: No Symptoms Immunological/Allergic: No Symptoms Objective Exam General Appearance: no apparent distress, alert Neurologic Exam: alert, 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, cooperative, normal mood/affect, nml cerebellar function, sensation nml, No motor deficits Skin Exam: normal color, warm, dry Eye Exam: PERRL, EOMI, eyes nml inspection Ears, Nose, Throat Exam: normal ENT inspection, pharynx normal, moist mucous membranes Neck Exam: normal inspection, non-tender, supple, full range of motion Respiratory Exam: diminished breath sounds, wheezing, No respiratory distress Cardiovascular Exam: regular rate/rhythm, normal heart sounds Gastrointestinal/Abdomen Exam: soft, No tenderness, No mass Extremity Exam: normal inspection, normal range of motion Back Exam: normal inspection, normal range of motion, No CVA tenderness, No vertebral tenderness Pelvic Exam: deferred Rectal Exam: deferred OBJECTIVE DATA Vital Signs: Vital Signs - 24 hr Temp Pulse Resp BP Pulse Ox 10/06/20 07:19 98.7 F 85 18 144/79 96 10/06/20 07:09 94 H 20 96 10/06/20 04:00 98.4 F 96 H 22 172/90 92 L 10/06/20 00:10 92 L 10/06/20 00:00 98.7 F 100 H 27 H 160/80 92 L 10/05/20 20:00 99.4 F 100 H 29 H 190/81 100 10/05/20 19:32 99 H 28 H 92 L 10/05/20 16:00 97.8 F 102 H 18 173/77 93 L 10/05/20 15:03 100 H 18 95 10/05/20 12:00 97.2 F 104 H 18 196/84 91 L 10/05/20 10:43 88 18 94 L Pain Assessment - Last Documented Pain Intensity [Posterior 10 Medial Distal Back] Pain Intensity 0 Pain Scale [facility] Intake and Output: Intake & Output 10/03/20 10/04/20 10/05/20 10/06/20 11:59 11:59 11:59 11:59 Intake Total 740 2512 3351 1525 Output Total 1357 3800 6206 Balance 740 179 -653 -3191 Weight 105.5 kg 105.5 kg 110.5 kg 106.7 kg Lab Results: Lab Results-Last 24 Hours 10/06/20 10/06/20 10/06/20 Range/Units 06:40 06:40 06:40 WBC 11.5 H (4.0-10.5) K/mm3 RBC 5.07 (4.1-5.4) M/mm3 Hgb 14.7 (12.0-16.0) gm/dl Hct 47.9 H (35-47) % MCV 94.5 (78-100) fl MCH 29.0 (26-32) pg MCHC 30.7 L (32-36) g/dl RDW 15.8 H (11.5-14.0) % Plt Count 195 (150-450) K/mm3 MPV 10.8 (7.5-11.0) fl Sodium 133 L (137-145) mmol/L Potassium 4.3 (3.5-5.1) mmol/L Chloride 94 L (98-107) mmol/L Carbon Dioxide 32 H (22-30) mmol/L Anion Gap 11.8 (5-15) MEQ/L BUN 32 H (7-17) mg/dL Creatinine 0.59 (0.52-1.04) mg/dL Estimated GFR > 60.0 ML/MIN Glucose 328 H (74-106) mg/dL POC Glucometer (74 to 106) mg/dL Calcium 9.1 (8.4-10.2) mg/dL Magnesium 2.0 (1.6-2.3) mg/dL Total Bilirubin 0.40 (0.2-1.3) mg/dL AST 34 (14-36) U/L ALT 60 H (0-35) U/L Alkaline Phosphatase 58 (38-126) U/L Serum Total Protein 7.0 (6.3-8.2) g/dL Albumin 3.6 (3.5-5.0) g/dL 10/06/20 Range/Units 07:39 WBC (4.0-10.5) K/mm3 RBC (4.1-5.4) M/mm3 Hgb (12.0-16.0) gm/dl Hct (35-47) % MCV (78-100) fl MCH (26-32) pg MCHC (32-36) g/dl RDW (11.5-14.0) % Plt Count (150-450) K/mm3 MPV (7.5-11.0) fl Sodium (137-145) mmol/L Potassium (3.5-5.1) mmol/L Chloride (98-107) mmol/L Carbon Dioxide (22-30) mmol/L Anion Gap (5-15) MEQ/L BUN (7-17) mg/dL Creatinine (0.52-1.04) mg/dL Estimated GFR ML/MIN Glucose (74-106) mg/dL POC Glucometer 283 H (74 to 106) mg/dL Calcium (8.4-10.2) mg/dL Magnesium (1.6-2.3) mg/dL Total Bilirubin (0.2-1.3) mg/dL AST (14-36) U/L ALT (0-35) U/L Alkaline Phosphatase (38-126) U/L Serum Total Protein (6.3-8.2) g/dL Albumin (3.5-5.0) g/dL Radiology Exams: Radiology Procedures Category Date Time Status CHEST 1 VIEW (PORTABLE) Routine Exams 10/05/20 06:00 Completed CHEST 1 VIEW (PORTABLE) Routine Exams 10/06/20 08:00 Taken Multi-Disciplinary Progress Notes: Multi-Disciplinary Progress Notes 10/05/20 14:30 (created 10/05/20 15:25) Case Management Note by Alicia Palacios WHILE PATIENT UP TO RESTROOM SATURATION DROPPED TO 88% WHILE ON 4L/NC Initialized on 10/05/20 15:25 - END OF NOTE Assessment/Plan (1) COPD exacerbation Current Visit: Yes Status: Acute Assessment & Plan: Chief Complaint Diagnosis COPD FAILED OUTPATIENT TREATMENT Allergies Allergy/AdvReac Type Severity Reaction Status Date / Time codeine Allergy Intermediate rash, Verified 10/02/20 17:09 itching cefaclor [From Ceclor] Allergy Mild Rash Verified 10/02/20 17:09 Penicillins Allergy Mild Swelling Verified 10/02/20 17:09 bacitracin AdvReac Mild Itching Verified 10/03/20 12:22 [From Neosporin ([id number])] bacitracin zinc AdvReac Mild Itching Verified 10/03/20 12:22 [From Neosporin ([id number])] levofloxacin [From Levaquin] AdvReac Mild itch Verified 10/03/20 12:22 neomycin sulfate AdvReac Mild itch Verified 10/03/20 12:22 [From Neosporin ([id number])] polymyxin B AdvReac Mild Itching Verified 10/03/20 12:22 [From Neosporin ([id number])] Vital Signs (Last 24 hours) Temp Pulse Resp BP Pulse Ox 10/06/20 07:19 98.7 F 85 18 144/79 96 10/06/20 07:09 94 H 20 96 10/06/20 04:00 98.4 F 96 H 22 172/90 92 L 10/06/20 00:10 92 L 10/06/20 00:00 98.7 F 100 H 27 H 160/80 92 L 10/05/20 20:00 99.4 F 100 H 29 H 190/81 100 10/05/20 19:32 99 H 28 H 92 L 10/05/20 16:00 97.8 F 102 H 18 173/77 93 L 10/05/20 15:03 100 H 18 95 10/05/20 12:00 97.2 F 104 H 18 196/84 91 L 10/05/20 10:43 88 18 94 L Home Medications Medication Instructions Recorded Confirmed Last Taken Type Lisinopril/Hydrochlorothiazide 1 each PO DAILY 10/03/20 10/03/20 Unknown History [Lisinopril-Hctz 10-12.5 mg Tab] Oxybutynin Chloride [Oxybutynin 5 mg PO DAILY 10/03/20 10/03/20 Unknown History Chloride ER] Current Medications Generic Name Dose Route Start Last Admin Trade Name Freq PRN Reason Stop Dose Admin Acetaminophen 650 mg 10/02/20 23:00 10/05/20 12:07 Tylenol 325 Mg PO 11/01/20 22:59 650 mg Q4H PRN PRN Administration PAIN AND/OR FEVER Albuterol/Ipratropium 3 ml 10/03/20 07:00 10/05/20 19:32 Duoneb 0.5-3 Mg/3 Ml Neb IH 11/02/20 06:59 3 ml QIDRT FABRICIO Administration Albuterol/Ipratropium 3 ml 10/03/20 00:46 10/06/20 00:10 Duoneb 0.5-3 Mg/3 Ml Neb IH 11/02/20 00:45 3 ml Q4HPRN PRN Administration SHORTNESS OF BREATH/WHEEZING Alprazolam 0.25 mg 10/03/20 10:00 10/05/20 21:01 Xanax 0.25 Mg PO 11/02/20 09:59 0.25 mg TID FABRICIO Administration Clonidine 0.1 mg 10/05/20 15:11 10/06/20 04:00 Catapres 0.1 Mg PO 11/04/20 15:10 0.1 mg Q8H PRN PRN Administration HYPERTENSION Furosemide 40 mg 10/05/20 17:00 10/05/20 17:46 Lasix 40 Mg/4 Ml IV 11/04/20 16:59 40 mg BID DIURETIC FABRICIO Administration Hydrochlorothiazide 12.5 mg 10/03/20 10:00 10/05/20 08:14 Hydrodiuril 25 Mg PO 11/02/20 09:59 12.5 mg DAILY FABRICIO Administration Sodium Chloride 1,000 mls @ 50 mls/hr 10/03/20 12:00 10/06/20 03:50 Sodium Chloride 0.9% 1000 Ml IV 11/02/20 11:59 50 mls/hr .Q20H FABRICIO Administration Ceftriaxone Sodium/Dextrose 1 g in 50 mls @ 100 mls/hr 10/05/20 16:00 10/05/20 16:18 Rocephin 1 Gm-D5w 50 Ml Bag IV 11/04/20 15:59 100 mls/hr Q24H10 FABRICIO Administration Azithromycin 500 mg in 250 mls @ 250 mls/hr 10/05/20 17:00 10/05/20 17:46 Zithromax 500 Mg/ 250 Ml Nacl Premix IV 11/04/20 16:59 250 mls/hr Q24H10 FABRICIO Administration Insulin Human Lispro 0 unit 10/02/20 23:00 Humalog SQ 11/01/20 22:59 UD PRN HYPERGLYCEMIA Lisinopril 10 mg 10/03/20 10:00 10/05/20 08:13 Zestril 10 Mg PO 11/02/20 09:59 10 mg DAILY FABRICIO Administration Methylprednisolone Sodium Succinate 80 mg 10/04/20 21:00 10/05/20 21:01 Solu-Medrol 125 Mg IV 11/03/20 20:59 80 mg Q12H FABRICIO Administration Ondansetron HCl 4 mg 10/02/20 23:00 Zofran 4 Mg/2 Ml Vial IV 11/01/20 22:59 Q6H PRN PRN NAUSEA/VOMITING Oxybutynin Chloride 5 mg 10/03/20 10:00 10/05/20 08:13 Ditropan Xl 5 Mg PO 11/02/20 09:59 5 mg DAILY FABRICIO Administration Pantoprazole Sodium 40 mg 10/03/20 10:00 10/05/20 08:19 Protonix 40 Mg Iv IV 11/02/20 09:59 40 mg Q24H10 FABRICIO Administration Potassium Chloride 10 meq 10/05/20 22:00 10/05/20 21:01 Klor Con 10 Meq PO 11/04/20 21:59 10 meq BID FABRICIO Administration Ropinirole HCl 2 mg 10/03/20 10:00 10/05/20 21:01 Requip 2mg Tab PO 11/02/20 09:59 2 mg TID FABRICIO Administration Discontinued Medications Generic Name Dose Route Start Last Admin Trade Name Freq PRN Reason Stop Dose Admin Albuterol/Ipratropium 3 ml 10/02/20 20:16 10/02/20 20:33 Duoneb 0.5-3 Mg/3 Ml Neb IH 10/02/20 20:17 3 ml STAT ONE Administration Albuterol/Ipratropium Confirm 10/02/20 20:31 Duoneb 0.5-3 Mg/3 Ml Neb Administered 10/02/20 20:32 Dose 3 ml IH .STK-MED ONE Cyclobenzaprine HCl 10 mg 10/02/20 17:35 10/02/20 17:53 Cyclobenzaprine 10 Mg PO 10/02/20 17:36 10 mg STAT ONE Administration Cyclobenzaprine HCl Confirm 10/02/20 17:52 Cyclobenzaprine 10 Mg Administered 10/02/20 17:53 Dose 10 mg .ROUTE .STK-MED ONE Doxycycline Hyclate Confirm 10/02/20 21:40 Vibramycin 100 Mg Administered 10/02/20 21:41 Dose 100 mg IV .STK-MED ONE Doxycycline Hyclate 100 mg 10/03/20 17:00 10/05/20 08:01 Vibramycin 100 Mg PO 11/02/20 16:59 100 mg BIDWMEALS FABRICIO Administration Furosemide 40 mg 10/05/20 07:00 10/05/20 06:29 Lasix 40 Mg/4 Ml IV 10/05/20 07:01 40 mg ONCE ONE Administration Furosemide Confirm 10/05/20 06:24 Lasix 20 Mg/2 Ml Administered 10/05/20 06:25 Dose 40 mg .ROUTE .STK-MED ONE Doxycycline Hyclate 100 mg/ 100 mls @ 100 mls/hr 10/02/20 22:00 10/02/20 21:45 Dextrose IV 11/01/20 21:59 100 mls/hr Q12HT FABRICIO Administration Dextrose Confirm 10/02/20 21:40 D5w 100ml Mini Bag 100 Ml Administered 10/02/20 21:41 Dose 100 mls @ ud IV .STK-MED ONE Doxycycline Hyclate 100 mg/ 100 mls @ 100 mls/hr 10/03/20 10:00 10/03/20 10:24 Dextrose IV 11/02/20 09:59 100 mls/hr Q12HT FABRICIO Administration Levofloxacin 500 mg 10/03/20 10:00 10/03/20 15:58 Levofloxacin 500 Mg Tablet PO 11/02/20 09:59 Not Given DAILY FABRICIO Methylprednisolone Sodium Succinate 125 mg 10/02/20 20:15 10/02/20 20:45 Solu-Medrol 125 Mg IV 10/02/20 20:16 125 mg STAT ONE Administration Methylprednisolone Sodium Succinate Confirm 10/02/20 20:44 Solu-Medrol 125 Mg Administered 10/02/20 20:45 Dose 125 mg .ROUTE .STK-MED ONE Methylprednisolone Sodium Succinate 80 mg 10/02/20 23:00 10/03/20 03:48 Solu-Medrol 125 Mg IV 11/01/20 22:59 80 mg Q6H FABRICIO Administration Methylprednisolone Sodium Succinate Confirm 10/03/20 03:44 Solu-Medrol 125 Mg Administered 10/03/20 03:45 Dose 125 mg .ROUTE .STK-MED ONE Methylprednisolone Sodium Succinate 80 mg 10/03/20 09:00 10/04/20 09:29 Solu-Medrol 125 Mg IV 11/02/20 08:59 80 mg Q6H FABRICIO Administration Morphine Sulfate 2 mg 10/02/20 23:00 Morphine Sulfate 2 Mg Inj IV 10/07/20 22:59 Q4H PRN PRN PAIN Oxycodone/Acetaminophen 2 tab 10/02/20 17:34 10/02/20 17:52 Percocet Tablet 5/325mg PO 10/02/20 17:35 2 tab STAT ONE Administration Oxycodone/Acetaminophen Confirm 10/02/20 17:51 Percocet Tablet 5/325mg Administered 10/02/20 17:52 Dose 2 tab .ROUTE .STK-MED ONE Intake & Output (Last 24 hours) 10/03/20 10/04/20 10/05/20 10/06/20 11:59 11:59 11:59 11:59 Intake Total 740 2252 3351 1525 Output Total 1350 3800 6200 Balance 804 422 -487 -6432 Weight 105.5 kg 105.5 kg 110.5 kg 106.7 kg Laboratory Results (Last 24 hours) 10/06/20 10/06/20 10/06/20 07:39 06:40 06:40 WBC RBC Hgb Hct MCV MCH MCHC RDW Plt Count MPV Sodium 133 L Potassium 4.3 Chloride 94 L Carbon Dioxide 32 H Anion Gap 11.8 BUN 32 H Creatinine 0.59 Estimated GFR > 60.0 Glucose 328 H POC Glucometer 283 H Calcium 9.1 Magnesium 2.0 Total Bilirubin 0.40 AST 34 ALT 60 H Alkaline Phosphatase 58 Serum Total Protein 7.0 Albumin 3.6 10/06/20 06:40 WBC 11.5 H RBC 5.07 Hgb 14.7 Hct 47.9 H MCV 94.5 MCH 29.0 MCHC 30.7 L RDW 15.8 H Plt Count 195 MPV 10.8 Sodium Potassium Chloride Carbon Dioxide Anion Gap BUN Creatinine Estimated GFR Glucose POC Glucometer Calcium Magnesium Total Bilirubin AST ALT Alkaline Phosphatase Serum Total Protein Albumin Orders (Last 24 hours) Category Date Time Status Change admission status [Change to Full Admit] ROUTINE Care 10/05/20 14:15 Active POCT Glucose Check ACHS Care 10/06/20 07:36 Active CHEST 1 VIEW (PORTABLE) Routine Exams 10/06/20 08:00 Taken CBC W DIFF AM.LAB Lab 10/06/20 06:40 Completed CBC W DIFF AM.LAB Lab 10/07/20 04:00 Ordered CMP AM.LAB Lab 10/06/20 06:40 Completed CMP AM.LAB Lab 10/07/20 04:00 Ordered MAG [MAGNESIUM] AM.LAB Lab 10/06/20 06:40 Completed Manual Differential NC Routine Lab 10/06/20 06:40 Completed POCT GLUCOSE Stat Lab 10/06/20 07:39 Completed Azithromycin 500 mg/250 ml [Zithromax 500 MG/ 250 ML Med 10/05/20 17:00 Active NaCl Premix] 500 mg in 250 ml IV Q24H10 Ceftriaxone 1 GM/50 ML PREMIX* [ROCEPHIN 1 Gm-D5w 50 ml Med 10/05/20 16:00 Active Bag] 1 g in 50 ml IV Q24H10 Clonidine HCl 0.1 mg [Catapres 0.1 MG] Med 10/05/20 15:11 Active 0.1 mg PO Q8H PRN PRN Furosemide 40 mg/4 ml [Lasix 40 MG/4 ML] Med 10/05/20 17:00 Active 40 mg IV BID DIURETIC Potassium Chloride 10 Meq Tab* [Klor Con 10 MEQ] Med 10/05/20 22:00 Active 10 meq PO BID Patient Care Notes (Last 24 hours) 10/06/20 04:10 Nursing Note by Brittani Samuels pt given pill box for help with medication dosing once patient is discharged per RN. Pt noted to say she did not have a pill box large enough to accommodate her needs prior to this intervention. Pt also stated she did not know what medications she is on and why at home, but knows there were many. RN educated patient on entire home med list on record including the "what meds she takes and why", pt denied questions thereafter and stated she is happy to have the correct sized pill box. Initialized on 10/06/20 04:10 - END OF NOTE 10/05/20 15:02 Nursing Note by Paxton Shell ROUNDED WITH DR LINDER, NEW ORDER TO CHANGE ABX TO ROCHEPHIN AND ZITHROMAX IV, LASIX 40MG IV BID, K 10MEQ PO BID, CLONIDINE 0.1MG PO Q8HR PRN FOR SYSTOLIC BP >160, CBC, CMP MAG AND CXR IN AM Initialized on 10/05/20 15:02 - END OF NOTE 10/05/20 14:30 (created 10/05/20 15:25) Case Management Note by Alicia Palacios WHILE PATIENT UP TO RESTROOM SATURATION DROPPED TO 88% WHILE ON 4L/NC Initialized on 10/05/20 15:25 - END OF NOTE 10/05/20 08:22 Nursing Note by Paxton Shell PT'S AM MEDS GIVEN EARLY PER PT REQUEST Initialized on 10/05/20 08:22 - END OF NOTE Code(s): J44.1 - CHRONIC OBSTRUCTIVE PULMONARY DISEASE W (ACUTE) EXACERBATION (2) Acute respiratory failure with hypoxia Current Visit: Yes Status: Resolved Code(s): J96.01 - ACUTE RESPIRATORY FAILURE WITH HYPOXIA (3) Low back pain potentially associated with spinal stenosis Current Visit: Yes Status: Chronic Code(s): M54.5 - LOW BACK PAIN (4) HTN (hypertension) Current Visit: Yes Status: Chronic Qualifiers: Hypertension type: essential hypertension Qualified Code(s): I10 - Essential (primary) hypertension Code(s): I10 - ESSENTIAL (PRIMARY) HYPERTENSION
[2020-10-06 08:12] LABS: Lymphocytes 7 % (24-44); Monocyte 1 % (0.0-12.0); Neutrophils 92 % (36.0-66.0); Total Cells Counted 100
[2020-10-06 08:13] LABS: Platelet Estimate NORMAL (NORMAL)
[2020-10-06] MEDS: HUMALOG SQ PRN ×2 (08:21→21:17)
--- NOTE | 2020-10-06 08:39 | XRAY ---
Indication: COPD. Comparison: One day earlier. Portable apical lordotic chest less inflated with new right base infiltrate versus atelectasis. There remains borderline cardiomegaly, prominent bilateral interstitial opacities, small right effusion, and left base discoid atelectasis/scarring. Remaining chest unremarkable.
[2020-10-06] MEDS: solu-MEDROL 125 MG IV SCH ×2 (09:18→21:09)
[2020-10-06] MEDS: Lasix 40 MG/4 ML IV SCH ×2 (09:20→16:31)
[2020-10-06] MEDS: PROTONIX 40 MG IV IV SCH (09:21)
[2020-10-06] MEDS: ROCEPHIN 1 Gm-D5w 50 ml Bag** 1 G/50 ML IVPB IV SCH (09:21)
[2020-10-06] MEDS: Klor Con 10 MEQ PO SCH ×2 (09:22→21:09)
[2020-10-06] MEDS: Zestril 10 MG PO SCH (09:22)
[2020-10-06] MEDS: REQUIP 2MG TAB PO SCH ×3 (09:22→21:09)
[2020-10-06] MEDS: hydroDIURIL 25 MG PO SCH (09:22)
[2020-10-06] MEDS: Ditropan XL 5 MG PO SCH (09:22)
[2020-10-06] MEDS: xanAX 0.25 MG PO SCH ×3 (09:23→21:09)
[2020-10-06] MEDS: Zithromax 500 MG/ 250 ML NaCl Premix 500 MG/250 ML IVPB IV SCH (11:03)
[2020-10-06] MEDS: TYLENOL 325 MG PO PRN (11:58)
[2020-10-06] MEDS ORDERED: Wellbutrin SR 150 MG ONE (21:27)
[2020-10-06] MEDS: Wellbutrin XL 150 MG PO SCH (21:29)
[2020-10-07] MEDS: TYLENOL 325 MG PO PRN (04:49)
[2020-10-07] MEDS: Catapres 0.1 MG PO PRN ×2 (04:49→23:46)
[2020-10-07 05:10] LABS: Hematocrit 48.5 % (35-47); Mean Cell Volume 93.8 fl (78-100); Mean Corpuscular Hgb Concent. 30.9 g/dl (32-36); Mean Platelet Volume 10.9 fl (7.5-11.0); Platelet Count 179 K/mm3 (150-450); Red Blood Count 5.17 M/mm3 (4.1-5.4); Red Cell Distribution Width 15.6 % (11.5-14.0); White Blood Count 9.6 K/mm3 (4.0-10.5)
[2020-10-07 05:38] LABS: ALBUMIN 3.4 g/dL (3.5-5.0); ALKALINE PHOSPHATASE 56 U/L (38-126); BLOOD UREA NITROGEN 31 mg/dL (7-17); CHLORIDE 92 mmol/L (98-107); Calcium 8.7 mg/dL (8.4-10.2); Creatinine 1 0.67 mg/dL (0.52-1.04); EST GLOMERULAR FILTRATION RATE > 60.0 ML/MIN; Glucose 313 mg/dL (74-106); Potassium 4.1 mmol/L (3.5-5.1); SGOT/AST 27 U/L (14-36); SGPT/ALT 61 U/L (0-35); SODIUM 134 mmol/L (137-145); Total Protein 6.4 g/dL (6.3-8.2)
[2020-10-07 05:45] LABS: Carbon Dioxide 36 mmol/L (22-30)
[2020-10-07 05:49] LABS: ANION GAP 10.1 MEQ/L (5-15)
[2020-10-07 06:45] LABS: Lymphocytes 7 % (24-44); Neutrophils 93 % (36.0-66.0); Total Cells Counted 100
[2020-10-07 06:47] LABS: Platelet Estimate NORMAL (NORMAL)
[2020-10-07] MEDS: DUONEB 0.5-3 MG/3 ml Neb IH SCH ×4 (06:59→20:37)
[2020-10-07] MEDS: HUMALOG SQ PRN ×4 (08:42→21:09)
[2020-10-07] MEDS: solu-MEDROL 125 MG IV SCH ×2 (09:15→21:09)
[2020-10-07] MEDS: Lasix 40 MG/4 ML IV SCH ×2 (09:18→17:07)
[2020-10-07] MEDS: hydroDIURIL 25 MG PO SCH (09:20)
[2020-10-07] MEDS: xanAX 0.25 MG PO SCH ×3 (09:20→21:09)
[2020-10-07] MEDS: Ditropan XL 5 MG PO SCH (09:21)
[2020-10-07] MEDS: REQUIP 2MG TAB PO SCH ×3 (09:21→21:09)
[2020-10-07] MEDS: Zestril 10 MG PO SCH (09:21)
[2020-10-07] MEDS: Klor Con 10 MEQ PO SCH ×2 (09:21→21:08)
[2020-10-07] MEDS: Wellbutrin XL 150 MG PO SCH (09:22)
[2020-10-07] MEDS: ROCEPHIN 1 Gm-D5w 50 ml Bag** 1 G/50 ML IVPB IV SCH (09:27)
--- NOTE | 2020-10-07 09:36 | ECHO ---
Transthoracic echocardiographic examination and color Doppler was done on 10/03/2020. INDICATION: Congestive heart failure, hypertension, shortness of breath. IMPRESSION: THE STUDY WAS SOMEWHAT LIMITED BECAUSE OF A LIMITED ACOUSTIC WINDOW. The left ventricle was only partially visualized and demonstrated adequate contractility. Estimated global left ventricular ejection fraction around 60%. There is concentric left ventricular hypertrophy. The mitral valve was partially seen and this appears to open adequately. No significant mitral regurgitation is seen. The aortic valve was not well visualized. However, there is no significant gradient across the left ventricular outflow tract. There is right ventricular hypertrophy. The tricuspid valve was not well seen.
[2020-10-07] MEDS: Zithromax 500 MG/ 250 ML NaCl Premix 500 MG/250 ML IVPB IV SCH (10:28)
[2020-10-07] MEDS: PROTONIX 40 MG IV IV SCH (10:29)
--- NOTE | 2020-10-07 10:29 | PCM.NOTE ---
Date and Time: 10/07/20 1028 Subjective Assessment: doing better - Review of Systems Constitutional: No Fever, No Chills Eyes: No Symptoms Ears, Nose, & Throat: No Symptoms Respiratory: No Cough, No Short Of Breath Cardiac: No Chest Pain, No Edema, No Syncope Abdominal/Gastrointestinal: No Abdominal Pain, No Nausea, No Vomiting, No Diarrhea Genitourinary Symptoms: No Dysuria Musculoskeletal: No Back Pain, No Neck Pain Skin: No Rash Neurological: No Dizziness, No Focal Weakness, No Sensory Changes Psychological: No Symptoms Endocrine: No Symptoms Hematologic/Lymphatic: No Symptoms Immunological/Allergic: No Symptoms Objective Exam General Appearance: no apparent distress, alert Neurologic Exam: alert, 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, cooperative, normal mood/affect, nml cerebellar function, sensation nml, No motor deficits Skin Exam: normal color, warm, dry Eye Exam: PERRL, EOMI, eyes nml inspection Ears, Nose, Throat Exam: normal ENT inspection, pharynx normal, moist mucous membranes Neck Exam: normal inspection, non-tender, supple, full range of motion Respiratory Exam: normal breath sounds, lungs clear, No respiratory distress Cardiovascular Exam: regular rate/rhythm, normal heart sounds Gastrointestinal/Abdomen Exam: soft, No tenderness, No mass Extremity Exam: normal inspection, normal range of motion Back Exam: normal inspection, normal range of motion, No CVA tenderness, No vertebral tenderness Pelvic Exam: deferred Rectal Exam: deferred OBJECTIVE DATA Vital Signs: Vital Signs - 24 hr Temp Pulse Resp BP Pulse Ox 10/07/20 09:14 86 133/62 10/07/20 08:41 93 L 10/07/20 07:31 97.7 F 81 22 191/80 96 10/07/20 07:00 86 22 95 10/07/20 04:00 97.5 F 95 H 24 197/88 92 L 10/07/20 00:00 98.3 F 87 16 184/83 94 L 10/06/20 19:52 97.9 F 94 H 18 139/66 94 L 10/06/20 19:39 96 H 23 92 L 10/06/20 16:00 98.0 F 97 H 22 194/85 92 L 10/06/20 14:36 96 H 20 93 L 10/06/20 11:43 98.7 F 100 H 21 152/74 95 10/06/20 10:53 81 18 96 Oxygen-Last 24 hours Oxygen Flowrate (L/min)-RT 5 Pain Assessment - Last Documented Pain Intensity [Posterior 10 Medial Distal Back] Pain Intensity 0 Pain Scale Used 0-10 Pain Scale Intake and Output: Intake & Output 10/04/20 10/05/20 10/06/20 10/07/20 11:59 11:59 11:59 11:59 Intake Total 2251 20047 Output Total 1350 3800 6200 1400 Balance 991 -110 -9417 330 Weight 105.5 kg 110.5 kg 106.7 kg Lab Results: Lab Results-Last 24 Hours 10/06/20 10/06/20 10/06/20 Range/Units 11:16 15:59 21:10 WBC (4.0-10.5) K/mm3 RBC (4.1-5.4) M/mm3 Hgb (12.0-16.0) gm/dl Hct (35-47) % MCV (78-100) fl MCH (26-32) pg MCHC (32-36) g/dl RDW (11.5-14.0) % Plt Count (150-450) K/mm3 MPV (7.5-11.0) fl Segmented Neutrophils (36.0-66.0) % Lymphocytes (Manual) (24-44) % Platelet Estimate (NORMAL) RBC Morphology Sodium (137-145) mmol/L Potassium (3.5-5.1) mmol/L Chloride (98-107) mmol/L Carbon Dioxide (22-30) mmol/L Anion Gap (5-15) MEQ/L BUN (7-17) mg/dL Creatinine (0.52-1.04) mg/dL Estimated GFR ML/MIN Glucose (74-106) mg/dL POC Glucometer 279 H 362 H 393 H (74 to 106) mg/dL Calcium (8.4-10.2) mg/dL Total Bilirubin (0.2-1.3) mg/dL AST (14-36) U/L ALT (0-35) U/L Alkaline Phosphatase (38-126) U/L Serum Total Protein (6.3-8.2) g/dL Albumin (3.5-5.0) g/dL 10/07/20 10/07/20 10/07/20 Range/Units 04:33 04:33 07:07 WBC 9.6 (4.0-10.5) K/mm3 RBC 5.17 (4.1-5.4) M/mm3 Hgb 15.0 (12.0-16.0) gm/dl Hct 48.5 H (35-47) % MCV 93.8 (78-100) fl MCH 29.0 (26-32) pg MCHC 30.9 L (32-36) g/dl RDW 15.6 H (11.5-14.0) % Plt Count 179 (150-450) K/mm3 MPV 10.9 (7.5-11.0) fl Segmented Neutrophils 93 H (36.0-66.0) % Lymphocytes (Manual) 7 L (24-44) % Platelet Estimate NORMAL (NORMAL) RBC Morphology NORMAL Sodium 134 L (137-145) mmol/L Potassium 4.1 (3.5-5.1) mmol/L Chloride 92 L (98-107) mmol/L Carbon Dioxide 36 H (22-30) mmol/L Anion Gap 10.1 (5-15) MEQ/L BUN 31 H (7-17) mg/dL Creatinine 0.67 (0.52-1.04) mg/dL Estimated GFR > 60.0 ML/MIN Glucose 313 H (74-106) mg/dL POC Glucometer 250 H (74 to 106) mg/dL Calcium 8.7 (8.4-10.2) mg/dL Total Bilirubin 0.40 (0.2-1.3) mg/dL AST 27 (14-36) U/L ALT 61 H (0-35) U/L Alkaline Phosphatase 56 (38-126) U/L Serum Total Protein 6.4 (6.3-8.2) g/dL Albumin 3.4 L (3.5-5.0) g/dL Radiology Exams: Radiology Procedures Category Date Time Status CHEST 1 VIEW (PORTABLE) Routine Exams 10/06/20 08:00 Completed Assessment/Plan (1) COPD exacerbation Current Visit: Yes Status: Acute Assessment & Plan: doing better Code(s): J44.1 - CHRONIC OBSTRUCTIVE PULMONARY DISEASE W (ACUTE) EXACERBATION (2) Acute respiratory failure with hypoxia Current Visit: Yes Status: Resolved Code(s): J96.01 - ACUTE RESPIRATORY FAILURE WITH HYPOXIA (3) Low back pain potentially associated with spinal stenosis Current Visit: Yes Status: Chronic Code(s): M54.5 - LOW BACK PAIN (4) HTN (hypertension) Current Visit: Yes Status: Chronic Qualifiers: Hypertension type: essential hypertension Qualified Code(s): I10 - Essential (primary) hypertension Code(s): I10 - ESSENTIAL (PRIMARY) HYPERTENSION
[2020-10-07] MEDS: Tessalon Perles 100 MG PO SCH ×3 (12:03→21:09)
[2020-10-07] MEDS: Sodium Chloride 0.9% 1000 ML 1,000 ML IV SCH (21:08)
[2020-10-08] MEDS: TYLENOL 325 MG PO PRN ×2 (01:38→11:57)
[2020-10-08] MEDS: DUONEB 0.5-3 MG/3 ml Neb IH SCH ×2 (06:53→10:54)
--- NOTE | 2020-10-08 07:54 | PCM.NOTE ---
Date and Time: 10/08/20 0753 Subjective Assessment: doing ok - Review of Systems Constitutional: No Fever, No Chills Eyes: No Symptoms Ears, Nose, & Throat: No Symptoms Respiratory: No Cough, No Short Of Breath Cardiac: No Chest Pain, No Edema, No Syncope Abdominal/Gastrointestinal: No Abdominal Pain, No Nausea, No Vomiting, No Diarrhea Genitourinary Symptoms: No Dysuria Musculoskeletal: No Back Pain, No Neck Pain Skin: No Rash Neurological: No Dizziness, No Focal Weakness, No Sensory Changes Psychological: No Symptoms Endocrine: No Symptoms Hematologic/Lymphatic: No Symptoms Immunological/Allergic: No Symptoms Objective Exam General Appearance: no apparent distress, alert Neurologic Exam: alert, 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, cooperative, normal mood/affect, nml cerebellar function, sensation nml, No motor deficits Skin Exam: normal color, warm, dry Eye Exam: PERRL, EOMI, eyes nml inspection Ears, Nose, Throat Exam: normal ENT inspection, pharynx normal, moist mucous membranes Neck Exam: normal inspection, non-tender, supple, full range of motion Respiratory Exam: normal breath sounds, lungs clear, No respiratory distress Cardiovascular Exam: regular rate/rhythm, normal heart sounds Gastrointestinal/Abdomen Exam: soft, No tenderness, No mass Extremity Exam: normal inspection, normal range of motion Back Exam: normal inspection, normal range of motion, No CVA tenderness, No vertebral tenderness Pelvic Exam: deferred Rectal Exam: deferred OBJECTIVE DATA Vital Signs: Vital Signs - 24 hr Temp Pulse Resp BP Pulse Ox 10/08/20 06:57 74 18 96 10/08/20 04:48 97.8 F 80 20 176/74 94 L 10/07/20 23:57 98.3 F 99 H 20 186/77 92 L 10/07/20 20:40 94 H 22 92 L 10/07/20 19:31 97.6 F 98 H 22 145/67 91 L 10/07/20 17:00 98.7 F 93 H 20 151/78 97 10/07/20 14:42 95 H 22 94 L 10/07/20 12:53 98.6 F 95 H 20 144/73 96 10/07/20 10:38 94 H 24 91 L 10/07/20 09:14 86 133/62 10/07/20 08:41 93 L Pain Assessment - Last Documented Pain Intensity [Posterior 10 Medial Distal Back] Pain Intensity 0 Pain Scale Used 0-10 Pain Scale Intake and Output: Intake & Output 10/05/20 10/06/20 10/07/20 10/08/20 11:59 11:59 11:59 11:59 Intake Total [id number] Output Total 3808 5052 4876 710 Balance -717 -5240 737 9807 Weight 110.5 kg 106.7 kg 107.5 kg 104.9 kg Lab Results: Lab Results-Last 24 Hours 10/07/20 10/07/20 10/07/20 Range/Units 11:32 15:58 19:53 POC Glucometer 311 H 389 H 386 H (74 to 106) mg/dL 10/08/20 Range/Units 07:18 POC Glucometer 278 H (74 to 106) mg/dL Radiology Exams: Radiology Procedures Category Date Time Status CHEST 1 VIEW (PORTABLE) Routine Exams 10/06/20 08:00 Completed Multi-Disciplinary Progress Notes: Multi-Disciplinary Progress Notes 10/07/20 12:47 Case Management Note by Alicia Palacios NO NEW NEEDS IDENTIFIED FOR DC AT THIS TIME- WILL NEED HOME OXYGEN AND WALKER ORDERS SENT TO [facility] AT TIME OF DC Initialized on 10/07/20 12:47 - END OF NOTE 10/07/20 11:08 Physical Therapy Note by Rupa Shirley PT. REPORTS SHE IS FEELING BETTER TODAY. STILL ON 5 L O2 D/T DIFFICULTY MAINTAINING O2 SATS > 90% W/ MOBILITY. PT. STATES SHE HAS BEEN ABLE TO AMBULATE IN ROOM WITHOUT WALKER BUT REMINDED HER THAT SHE WOULD BENEFIT FROM USE OF A WALKER AT HOME TO DECREASE BACK PN. PT. AGREEABLE TO WALK W/ PT. IV IN PLACE. SUPINE TO SIT AND SIT TO STAND MOD I. PT. AMBULATED ~ 50' IN ROOM W/ SBA WITHOUT A.D. AND ON 5 L O2. SATS TO ~ 88% AFTER WALK AND PT. NEEDED V.C. TO BREATHE W/ PURSED LIP TECHNIQUE. SATS RECOVERED W/ REST. PT. DENIED NEED FOR HHC UPON D/C SHE HAS HER SPOUSE AND GRANDSON AT HOME TO ASSIST PRN. WILL CONT. PT UNTIL D/C TO MAXIMIZE FUNCTIONAL POTENTIAL AND INCREASE ENDURANCE. RUPA SHIRLEY PT Initialized on 10/07/20 11:08 - END OF NOTE 10/07/20 10:25 (created 10/07/20 10:28) Respiratory Note by Patsy Carpenter PT'S O2 SAT ON 4LPM NASAL CANNULA WHILE UP WALKING TO THE BATHROOM WAS 87%. OXYGEN WAS INCREASED TO 5LPM VIA NASAL CANNULA. O2 SAT INCREASED TO 91%. Initialized on 10/07/20 10:28 - END OF NOTE Assessment/Plan (1) COPD exacerbation Current Visit: Yes Status: Acute Assessment & Plan: Chief Complaint Diagnosis COPD FAILED OUTPATIENT TREATMENT Allergies Allergy/AdvReac Type Severity Reaction Status Date / Time codeine Allergy Intermediate rash, Verified 10/02/20 17:09 itching cefaclor [From Ceclor] Allergy Mild Rash Verified 10/02/20 17:09 Penicillins Allergy Mild Swelling Verified 10/02/20 17:09 bacitracin AdvReac Mild Itching Verified 10/03/20 12:22 [From Neosporin ([id number])] bacitracin zinc AdvReac Mild Itching Verified 10/03/20 12:22 [From Neosporin ([id number])] levofloxacin [From Levaquin] AdvReac Mild itch Verified 10/03/20 12:22 neomycin sulfate AdvReac Mild itch Verified 10/03/20 12:22 [From Neosporin ([id number])] polymyxin B AdvReac Mild Itching Verified 10/03/20 12:22 [From Neosporin ([id number])] Vital Signs (Last 24 hours) Temp Pulse Resp BP Pulse Ox 10/08/20 06:57 74 18 96 10/08/20 04:48 97.8 F 80 20 176/74 94 L 10/07/20 23:57 98.3 F 99 H 20 186/77 92 L 10/07/20 20:40 94 H 22 92 L 10/07/20 19:31 97.6 F 98 H 22 145/67 91 L 10/07/20 17:00 98.7 F 93 H 20 151/78 97 10/07/20 14:42 95 H 22 94 L 10/07/20 12:53 98.6 F 95 H 20 144/73 96 10/07/20 10:38 94 H 24 91 L 10/07/20 09:14 86 133/62 10/07/20 08:41 93 L Home Medications Medication Instructions Recorded Confirmed Last Taken Type Lisinopril/Hydrochlorothiazide 1 each PO DAILY 10/03/20 10/03/20 Unknown History [Lisinopril-Hctz 10-12.5 mg Tab] Oxybutynin Chloride [Oxybutynin 5 mg PO DAILY 10/03/20 10/03/20 Unknown History Chloride ER] Bupropion HCl Xl 150 mg 150 mg PO DAILY 10/06/20 10/06/20 Unknown History [Wellbutrin XL 150 MG] Current Medications Generic Name Dose Route Start Last Admin Trade Name Freq PRN Reason Stop Dose Admin Acetaminophen 650 mg 10/02/20 23:00 10/08/20 01:38 Tylenol 325 Mg PO 11/01/20 22:59 650 mg Q4H PRN PRN Administration PAIN AND/OR FEVER Albuterol/Ipratropium 3 ml 10/03/20 07:00 10/08/20 06:53 Duoneb 0.5-3 Mg/3 Ml Neb IH 11/02/20 06:59 3 ml QIDRT FABRICIO Administration Albuterol/Ipratropium 3 ml 10/03/20 00:46 10/06/20 00:10 Duoneb 0.5-3 Mg/3 Ml Neb IH 11/02/20 00:45 3 ml Q4HPRN PRN Administration SHORTNESS OF BREATH/WHEEZING Alprazolam 0.25 mg 10/03/20 10:00 10/07/20 21:09 Xanax 0.25 Mg PO 11/02/20 09:59 0.25 mg TID FABRICIO Administration Benzonatate 100 mg 10/07/20 13:00 10/07/20 21:09 Tessalon Perles 100 Mg PO 11/06/20 12:59 Not Given QID FABRICOI Bupropion HCl 150 mg 10/07/20 10:00 10/07/20 09:22 Wellbutrin Xl 150 Mg PO 11/06/20 09:59 150 mg DAILY FABRICIO Administration Clonidine 0.1 mg 10/05/20 15:11 10/07/20 23:46 Catapres 0.1 Mg PO 11/04/20 15:10 0.1 mg Q8H PRN PRN Administration HYPERTENSION Furosemide 40 mg 10/05/20 17:00 10/07/20 17:07 Lasix 40 Mg/4 Ml IV 11/04/20 16:59 40 mg BID DIURETIC FABRICIO Administration Hydrochlorothiazide 12.5 mg 10/03/20 10:00 10/07/20 09:20 Hydrodiuril 25 Mg PO 11/02/20 09:59 12.5 mg DAILY FABRICIO Administration Sodium Chloride 1,000 mls @ 50 mls/hr 10/03/20 12:00 10/07/20 21:08 Sodium Chloride 0.9% 1000 Ml IV 11/02/20 11:59 50 mls/hr .Q20H FABRICIO Administration Ceftriaxone Sodium/Dextrose 1 g in 50 mls @ 100 mls/hr 10/05/20 16:00 10/07/20 09:27 Rocephin 1 Gm-D5w 50 Ml Bag IV 11/04/20 15:59 100 mls/hr Q24H10 FABRICIO Administration Azithromycin 500 mg in 250 mls @ 250 mls/hr 10/05/20 17:00 10/07/20 10:28 Zithromax 500 Mg/ 250 Ml Nacl Premix IV 11/04/20 16:59 250 mls/hr Q24H10 FABRICIO Administration Insulin Human Lispro 0 unit 10/02/20 23:00 10/07/20 21:09 Humalog SQ 11/01/20 22:59 8 unit UD PRN Administration HYPERGLYCEMIA Lisinopril 10 mg 10/03/20 10:00 10/07/20 09:21 Zestril 10 Mg PO 11/02/20 09:59 10 mg DAILY FABRICIO Administration Methylprednisolone Sodium Succinate 80 mg 10/04/20 21:00 10/07/20 21:09 Solu-Medrol 125 Mg IV 11/03/20 20:59 80 mg Q12H FABRICIO Administration Ondansetron HCl 4 mg 10/02/20 23:00 Zofran 4 Mg/2 Ml Vial IV 11/01/20 22:59 Q6H PRN PRN NAUSEA/VOMITING Oxybutynin Chloride 5 mg 10/03/20 10:00 10/07/20 09:21 Ditropan Xl 5 Mg PO 11/02/20 09:59 5 mg DAILY FABRICIO Administration Pantoprazole Sodium 40 mg 10/03/20 10:00 10/07/20 10:29 Protonix 40 Mg Iv IV 11/02/20 09:59 40 mg Q24H10 FABRICIO Administration Potassium Chloride 10 meq 10/05/20 22:00 10/07/20 21:08 Klor Con 10 Meq PO 11/04/20 21:59 10 meq BID FABRICIO Administration Ropinirole HCl 2 mg 10/03/20 10:00 10/07/20 21:09 Requip 2mg Tab PO 11/02/20 09:59 2 mg TID FABRICIO Administration Discontinued Medications Generic Name Dose Route Start Last Admin Trade Name Freq PRN Reason Stop Dose Admin Albuterol/Ipratropium 3 ml 10/02/20 20:16 10/02/20 20:33 Duoneb 0.5-3 Mg/3 Ml Neb IH 10/02/20 20:17 3 ml STAT ONE Administration Albuterol/Ipratropium Confirm 10/02/20 20:31 Duoneb 0.5-3 Mg/3 Ml Neb Administered 10/02/20 20:32 Dose 3 ml IH .STK-MED ONE Bupropion HCl Confirm 10/06/20 21:27 Wellbutrin Sr 150 Mg Administered 10/06/20 21:28 Dose 150 mg .ROUTE .STK-MED ONE Cyclobenzaprine HCl 10 mg 10/02/20 17:35 10/02/20 17:53 Cyclobenzaprine 10 Mg PO 10/02/20 17:36 10 mg STAT ONE Administration Cyclobenzaprine HCl Confirm 10/02/20 17:52 Cyclobenzaprine 10 Mg Administered 10/02/20 17:53 Dose 10 mg .ROUTE .STK-MED ONE Doxycycline Hyclate Confirm 10/02/20 21:40 Vibramycin 100 Mg Administered 10/02/20 21:41 Dose 100 mg IV .STK-MED ONE Doxycycline Hyclate 100 mg 10/03/20 17:00 10/05/20 08:01 Vibramycin 100 Mg PO 11/02/20 16:59 100 mg BIDWMEALS FABRICIO Administration Furosemide 40 mg 10/05/20 07:00 10/05/20 06:29 Lasix 40 Mg/4 Ml IV 10/05/20 07:01 40 mg ONCE ONE Administration Furosemide Confirm 10/05/20 06:24 Lasix 20 Mg/2 Ml Administered 10/05/20 06:25 Dose 40 mg .ROUTE .STK-MED ONE Doxycycline Hyclate 100 mg/ 100 mls @ 100 mls/hr 10/02/20 22:00 10/02/20 21:45 Dextrose IV 11/01/20 21:59 100 mls/hr Q12HT FABRICIO Administration Dextrose Confirm 10/02/20 21:40 D5w 100ml Mini Bag 100 Ml Administered 10/02/20 21:41 Dose 100 mls @ ud IV .STK-MED ONE Doxycycline Hyclate 100 mg/ 100 mls @ 100 mls/hr 10/03/20 10:00 10/03/20 10:24 Dextrose IV 11/02/20 09:59 100 mls/hr Q12HT FABRICIO Administration Levofloxacin 500 mg 10/03/20 10:00 10/03/20 15:58 Levofloxacin 500 Mg Tablet PO 11/02/20 09:59 Not Given DAILY FABRICIO Methylprednisolone Sodium Succinate 125 mg 10/02/20 20:15 10/02/20 20:45 Solu-Medrol 125 Mg IV 10/02/20 20:16 125 mg STAT ONE Administration Methylprednisolone Sodium Succinate Confirm 10/02/20 20:44 Solu-Medrol 125 Mg Administered 10/02/20 20:45 Dose 125 mg .ROUTE .STK-MED ONE Methylprednisolone Sodium Succinate 80 mg 10/02/20 23:00 10/03/20 03:48 Solu-Medrol 125 Mg IV 11/01/20 22:59 80 mg Q6H FABRICIO Administration Methylprednisolone Sodium Succinate Confirm 10/03/20 03:44 Solu-Medrol 125 Mg Administered 10/03/20 03:45 Dose 125 mg .ROUTE .STK-MED ONE Methylprednisolone Sodium Succinate 80 mg 10/03/20 09:00 10/04/20 09:29 Solu-Medrol 125 Mg IV 11/02/20 08:59 80 mg Q6H FABRICIO Administration Morphine Sulfate 2 mg 10/02/20 23:00 Morphine Sulfate 2 Mg Inj IV 10/07/20 22:59 Q4H PRN PRN PAIN Oxycodone/Acetaminophen 2 tab 10/02/20 17:34 10/02/20 17:52 Percocet Tablet 5/325mg PO 10/02/20 17:35 2 tab STAT ONE Administration Oxycodone/Acetaminophen Confirm 10/02/20 17:51 Percocet Tablet 5/325mg Administered 10/02/20 17:52 Dose 2 tab .ROUTE .STK-MED ONE Intake & Output (Last 24 hours) 10/05/20 10/06/20 10/07/20 10/08/20 11:59 11:59 11:59 11:59 Intake Total 33520047 4227 Output Total 3800 6200 1400 950 Balance -449 -5811 737 3277 Weight 110.5 kg 106.7 kg 107.5 kg 104.9 kg Laboratory Results (Last 24 hours) 10/08/20 10/07/20 10/07/20 07:18 19:53 15:58 POC Glucometer 278 H 386 H 389 H 10/07/20 11:32 POC Glucometer 311 H Orders (Last 24 hours) Category Date Time Status POCT GLUCOSE Stat Lab 10/07/20 07:07 Completed POCT GLUCOSE Stat Lab 10/07/20 11:32 Completed POCT GLUCOSE Stat Lab 10/07/20 15:58 Completed POCT GLUCOSE Stat Lab 10/07/20 19:53 Completed POCT GLUCOSE Stat Lab 10/08/20 07:18 Completed Benzonatate 100 mg [Tessalon Perles 100 MG] Med 10/07/20 13:00 Active 100 mg PO QID Bupropion HCl Xl 150 mg [Wellbutrin XL 150 MG] Med 10/07/20 10:00 Active 150 mg PO DAILY Patient Care Notes (Last 24 hours) 10/07/20 12:47 Case Management Note by Alicia Palacios NO NEW NEEDS IDENTIFIED FOR DC AT THIS TIME- WILL NEED HOME OXYGEN AND WALKER ORDERS SENT TO [facility] AT TIME OF DC Initialized on 10/07/20 12:47 - END OF NOTE 10/07/20 11:08 Physical Therapy Note by Rupa Shirley PT. REPORTS SHE IS FEELING BETTER TODAY. STILL ON 5 L O2 D/T DIFFICULTY MAINTAINING O2 SATS > 90% W/ MOBILITY. PT. STATES SHE HAS BEEN ABLE TO AMBULATE IN ROOM WITHOUT WALKER BUT REMINDED HER THAT SHE WOULD BENEFIT FROM USE OF A WALKER AT HOME TO DECREASE BACK PN. PT. AGREEABLE TO WALK W/ PT. IV IN PLACE. SUPINE TO SIT AND SIT TO STAND MOD I. PT. AMBULATED ~ 50' IN ROOM W/ SBA WITHOUT A.D. AND ON 5 L O2. SATS TO ~ 88% AFTER WALK AND PT. NEEDED V.C. TO BREATHE W/ PURSED LIP TECHNIQUE. SATS RECOVERED W/ REST. PT. DENIED NEED FOR HHC UPON D/C SHE HAS HER SPOUSE AND GRANDSON AT HOME TO ASSIST PRN. WILL CONT. PT UNTIL D/C TO MAXIMIZE FUNCTIONAL POTENTIAL AND INCREASE ENDURANCE. RUPA SHIRLEY, PT Initialized on 10/07/20 11:08 - END OF NOTE 10/07/20 10:25 (created 10/07/20 10:28) Respiratory Note by Patsy Carpenter PT'S O2 SAT ON 4LPM NASAL CANNULA WHILE UP WALKING TO THE BATHROOM WAS 87%. OXYGEN WAS INCREASED TO 5LPM VIA NASAL CANNULA. O2 SAT INCREASED TO 91%. Initialized on 10/07/20 10:28 - END OF NOTE Code(s): J44.1 - CHRONIC OBSTRUCTIVE PULMONARY DISEASE W (ACUTE) EXACERBATION (2) Acute respiratory failure with hypoxia Current Visit: Yes Status: Resolved Code(s): J96.01 - ACUTE RESPIRATORY FAILURE WITH HYPOXIA (3) Low back pain potentially associated with spinal stenosis Current Visit: Yes Status: Chronic Code(s): M54.5 - LOW BACK PAIN (4) HTN (hypertension) Current Visit: Yes Status: Chronic Qualifiers: Hypertension type: essential hypertension Qualified Code(s): I10 - Essential (primary) hypertension Code(s): I10 - ESSENTIAL (PRIMARY) HYPERTENSION
[2020-10-08] MEDS: solu-MEDROL 125 MG IV SCH (08:31)
[2020-10-08] MEDS: Zestril 10 MG PO SCH (08:32)
[2020-10-08] MEDS: REQUIP 2MG TAB PO SCH (08:32)
[2020-10-08] MEDS: Tessalon Perles 100 MG PO SCH (08:32)
[2020-10-08] MEDS: hydroDIURIL 25 MG PO SCH (08:32)
[2020-10-08] MEDS: Zithromax 500 MG/ 250 ML NaCl Premix 500 MG/250 ML IVPB IV SCH (08:32)
[2020-10-08] MEDS: ROCEPHIN 1 Gm-D5w 50 ml Bag** 1 G/50 ML IVPB IV SCH (08:32)
[2020-10-08] MEDS: xanAX 0.25 MG PO SCH (08:32)
[2020-10-08] MEDS: Klor Con 10 MEQ PO SCH (08:32)
[2020-10-08] MEDS: Ditropan XL 5 MG PO SCH (08:32)
[2020-10-08] MEDS: PROTONIX 40 MG IV IV SCH (08:33)
[2020-10-08] MEDS: Lasix 40 MG/4 ML IV SCH (08:33)
[2020-10-08] MEDS: Wellbutrin XL 150 MG PO SCH (08:34)
[2020-10-08 11:36] VITALS: BP 161/72; PULSE 79; O2SAT 92
--- NOTE | 2020-10-08 13:17 | PCM.DS ---
Discharge Summary Date of Admission: 10/05/20 14:15 Admitting Physician: ARSH LINDER Primary Care Provider: ARSH LINDER Allergies Allergies codeine Allergy (Intermediate, Verified 10/02/20 17:09) rash, itching cefaclor [From Ceclor] Allergy (Mild, Verified 10/02/20 17:09) Rash Penicillins Allergy (Mild, Verified 10/02/20 17:09) Swelling bacitracin [From Neosporin ([id number])] Adverse Reaction (Mild, Verified 10/03/20 12:22) Itching bacitracin zinc [From Neosporin ([id number])] Adverse Reaction (Mild, Verified 10/03/20 12:22) Itching levofloxacin [From Levaquin] Adverse Reaction (Mild, Verified 10/03/20 12:22) itch neomycin sulfate [From Neosporin ([id number]-[id number])] Adverse Reaction (Mild, Verified 10/03/20 12:22) itch polymyxin B [From Neosporin ([id number]-pbj-[id number])] Adverse Reaction (Mild, Verified 10/03/20 12:22) Itching Hospital Summary - Hospital Course Hospital Course: Chief Complaint Diagnosis COPD FAILED OUTPATIENT TREATMENT Allergies Allergy/AdvReac Type Severity Reaction Status Date / Time codeine Allergy Intermediate rash, Verified 10/02/20 17:09 itching cefaclor [From Ceclor] Allergy Mild Rash Verified 10/02/20 17:09 Penicillins Allergy Mild Swelling Verified 10/02/20 17:09 bacitracin AdvReac Mild Itching Verified 10/03/20 12:22 [From Neosporin ([id number]-pkn-[id number])] bacitracin zinc AdvReac Mild Itching Verified 10/03/20 12:22 [From Neosporin (bnf-zoo-sxpii)] levofloxacin [From Levaquin] AdvReac Mild itch Verified 10/03/20 12:22 neomycin sulfate AdvReac Mild itch Verified 10/03/20 12:22 [From Neosporin (owx-jad-zddre)] polymyxin B AdvReac Mild Itching Verified 10/03/20 12:22 [From Neosporin (bel-tuc-omiaq)] Vital Signs (Last 24 hours) Temp Pulse Resp BP Pulse Ox 10/08/20 11:00 97.9 F 79 16 161/72 92 L 10/08/20 10:56 82 20 93 L 10/08/20 07:56 166/80 10/08/20 06:57 74 18 96 10/08/20 04:48 97.8 F 80 20 176/74 94 L 10/07/20 23:57 98.3 F 99 H 20 186/77 92 L 10/07/20 20:40 94 H 22 92 L 10/07/20 19:31 97.6 F 98 H 22 145/67 91 L 10/07/20 17:00 98.7 F 93 H 20 151/78 97 10/07/20 14:42 95 H 22 94 L Home Medications Medication Instructions Recorded Confirmed Last Taken Type Lisinopril/Hydrochlorothiazide 1 each PO DAILY 10/03/20 10/03/20 Unknown History [Lisinopril-Hctz 10-12.5 mg Tab] Oxybutynin Chloride [Oxybutynin 5 mg PO DAILY 10/03/20 10/03/20 Unknown History Chloride ER] Bupropion HCl Xl 150 mg 150 mg PO DAILY 10/06/20 10/06/20 Unknown History [Wellbutrin XL 150 MG] Albuterol/Ipratropium 3ml Neb* 3 ml IH Q4HPRN PRN ampul.neb 10/08/20 Unknown Rx [DUONEB 0.5-3 MG/3 ml Neb] Albuterol/Ipratropium 3ml Neb* 3 ml IH QIDRT #120 ampul.neb 10/08/20 Unknown Rx [DUONEB 0.5-3 MG/3 ml Neb] Furosemide 40 mg [Lasix 40 40 mg PO DAILY #30 tablet 10/08/20 Unknown Rx MG] Levofloxacin [Levaquin] 500 mg PO DAILY #3 tablet 10/08/20 Unknown Rx Potassium Chloride 10 Meq Tab* 10 meq PO BID #30 tab 10/08/20 Unknown Rx [Klor Con 10 MEQ] Current Medications Generic Name Dose Route Start Last Admin Trade Name Freq PRN Reason Stop Dose Admin Acetaminophen 650 mg 10/02/20 23:00 10/08/20 11:57 Tylenol 325 Mg PO 11/01/20 22:59 650 mg Q4H PRN PRN Administration PAIN AND/OR FEVER Albuterol/Ipratropium 3 ml 10/03/20 07:00 10/08/20 10:54 Duoneb 0.5-3 Mg/3 Ml Neb IH 11/02/20 06:59 3 ml QIDRT FABRICIO Administration Albuterol/Ipratropium 3 ml 10/03/20 00:46 10/06/20 00:10 Duoneb 0.5-3 Mg/3 Ml Neb IH 11/02/20 00:45 3 ml Q4HPRN PRN Administration SHORTNESS OF BREATH/WHEEZING Alprazolam 0.25 mg 10/03/20 10:00 10/08/20 08:32 Xanax 0.25 Mg PO 11/02/20 09:59 0.25 mg TID FABRICIO Administration Benzonatate 100 mg 10/07/20 13:00 10/08/20 08:32 Tessalon Perles 100 Mg PO 11/06/20 12:59 100 mg QID FABRICIO Administration Bupropion HCl 150 mg 10/07/20 10:00 10/08/20 08:34 Wellbutrin Xl 150 Mg PO 11/06/20 09:59 150 mg DAILY FABRICIO Administration Clonidine 0.1 mg 10/05/20 15:11 10/07/20 23:46 Catapres 0.1 Mg PO 11/04/20 15:10 0.1 mg Q8H PRN PRN Administration HYPERTENSION Furosemide 40 mg 10/05/20 17:00 10/08/20 08:33 Lasix 40 Mg/4 Ml IV 11/04/20 16:59 40 mg BID DIURETIC FABRICIO Administration Hydrochlorothiazide 12.5 mg 10/03/20 10:00 10/08/20 08:32 Hydrodiuril 25 Mg PO 11/02/20 09:59 12.5 mg DAILY FABRICIO Administration Sodium Chloride 1,000 mls @ 50 mls/hr 10/03/20 12:00 10/07/20 21:08 Sodium Chloride 0.9% 1000 Ml IV 11/02/20 11:59 50 mls/hr .Q20H FABRICIO Administration Ceftriaxone Sodium/Dextrose 1 g in 50 mls @ 100 mls/hr 10/05/20 16:00 1 08:32 Rocephin 1 Gm-D5w 50 Ml Bag IV 11/04/20 15:59 100 mls/hr Q24H10 FABRICIO Administration Azithromycin 500 mg in 250 mls @ 250 mls/hr 10/05/20 17:00 10/08/20 08:32 Zithromax 500 Mg/ 250 Ml Nacl Premix IV 11/04/20 16:59 250 mls/hr Q24H10 FABRICIO Administration Insulin Human Lispro 0 unit 10/02/20 23:00 10/07/20 21:09 Humalog SQ 11/01/20 22:59 8 unit UD PRN Administration HYPERGLYCEMIA Lisinopril 10 mg 10/03/20 10:00 10/08/20 08:32 Zestril 10 Mg PO 11/02/20 09:59 10 mg DAILY FABRICIO Administration Methylprednisolone Sodium Succinate 80 mg 10/04/20 21:00 10/08/20 08:31 Solu-Medrol 125 Mg IV 11/03/20 20:59 80 mg Q12H FABRICIO Administration Ondansetron HCl 4 mg 10/02/20 23:00 Zofran 4 Mg/2 Ml Vial IV 11/01/20 22:59 Q6H PRN PRN NAUSEA/VOMITING Oxybutynin Chloride 5 mg 10/03/20 10:00 10/08/20 08:32 Ditropan Xl 5 Mg PO 11/02/20 09:59 5 mg DAILY FABRICIO Administration Pantoprazole Sodium 40 mg 10/03/20 10:00 10/08/20 08:33 Protonix 40 Mg Iv IV 11/02/20 09:59 40 mg Q24H10 FABRICIO Administration Potassium Chloride 10 meq 10/05/20 22:00 10/08/20 08:32 Klor Con 10 Meq PO 11/04/20 21:59 10 meq BID FABRICIO Administration Ropinirole HCl 2 mg 10/03/20 10:00 10/08/20 08:32 Requip 2mg Tab PO 11/02/20 09:59 2 mg TID FABRICIO Administration Discontinued Medications Generic Name Dose Route Start Last Admin Trade Name Freq PRN Reason Stop Dose Admin Albuterol/Ipratropium 3 ml 10/02/20 20:16 10/02/20 20:33 Duoneb 0.5-3 Mg/3 Ml Neb IH 10/02/20 20:17 3 ml STAT ONE Administration Albuterol/Ipratropium Confirm 10/02/20 20:31 Duoneb 0.5-3 Mg/3 Ml Neb Administered 10/02/20 20:32 Dose 3 ml IH .STK-MED ONE Bupropion HCl Confirm 10/06/20 21:27 Wellbutrin Sr 150 Mg Administered 10/06/20 21:28 Dose 150 mg .ROUTE .STK-MED ONE Cyclobenzaprine HCl 10 mg 10/02/20 17:35 10/02/20 17:53 Cyclobenzaprine 10 Mg PO 10/02/20 17:36 10 mg STAT ONE Administration Cyclobenzaprine HCl Confirm 10/02/20 17:52 Cyclobenzaprine 10 Mg Administered 10/02/20 17:53 Dose 10 mg .ROUTE .STK-MED ONE Doxycycline Hyclate Confirm 10/02/20 21:40 Vibramycin 100 Mg Administered 10/02/20 21:41 Dose 100 mg IV .STK-MED ONE Doxycycline Hyclate 100 mg 10/03/20 17:00 10/05/20 08:01 Vibramycin 100 Mg PO 11/02/20 16:59 100 mg BIDWMEALS FABRICIO Administration Furosemide 40 mg 10/05/20 07:00 10/05/20 06:29 Lasix 40 Mg/4 Ml IV 10/05/20 07:01 40 mg ONCE ONE Administration Furosemide Confirm 10/05/20 06:24 Lasix 20 Mg/2 Ml Administered 10/05/20 06:25 Dose 40 mg .ROUTE .STK-MED ONE Doxycycline Hyclate 100 mg/ 100 mls @ 100 mls/hr 10/02/20 22:00 10/02/20 21:45 Dextrose IV 11/01/20 21:59 100 mls/hr Q12HT FABRICIO Administration Dextrose Confirm 10/02/20 21:40 D5w 100ml Mini Bag 100 Ml Administered 10/02/20 21:41 Dose 100 mls @ ud IV .STK-MED ONE Doxycycline Hyclate 100 mg/ 100 mls @ 100 mls/hr 10/03/20 10:00 10/03/20 10:24 Dextrose IV 11/02/20 09:59 100 mls/hr Q12HT FABRICIO Administration Levofloxacin 500 mg 10/03/20 10:00 10/03/20 15:58 Levofloxacin 500 Mg Tablet PO 11/02/20 09:59 Not Given DAILY FABRICIO Methylprednisolone Sodium Succinate 125 mg 10/02/20 20:15 10/02/20 20:45 Solu-Medrol 125 Mg IV 10/02/20 20:16 125 mg STAT ONE Administration Methylprednisolone Sodium Succinate Confirm 10/02/20 20:44 Solu-Medrol 125 Mg Administered 10/02/20 20:45 Dose 125 mg .ROUTE .STK-MED ONE Methylprednisolone Sodium Succinate 80 mg 10/02/20 23:00 10/03/20 03:48 Solu-Medrol 125 Mg IV 11/01/20 22:59 80 mg Q6H FABRICIO Administration Methylprednisolone Sodium Succinate Confirm 10/03/20 03:44 Solu-Medrol 125 Mg Administered 10/03/20 03:45 Dose 125 mg .ROUTE .STK-MED ONE Methylprednisolone Sodium Succinate 80 mg 10/03/20 09:00 10/04/20 09:29 Solu-Medrol 125 Mg IV 11/02/20 08:59 80 mg Q6H FABRICIO Administration Morphine Sulfate 2 mg 10/02/20 23:00 Morphine Sulfate 2 Mg Inj IV 10/07/20 22:59 Q4H PRN PRN PAIN Oxycodone/Acetaminophen 2 tab 10/02/20 17:34 10/02/20 17:52 Percocet Tablet 5/325mg PO 10/02/20 17:35 2 tab STAT ONE Administration Oxycodone/Acetaminophen Confirm 10/02/20 17:51 Percocet Tablet 5/325mg Administered 10/02/20 17:52 Dose 2 tab .ROUTE .STK-MED ONE Intake & Output (Last 24 hours) 10/06/20 10/07/20 10/08/20 10/09/20 11:59 11:59 11:59 11:59 Intake Total 20042 9297 480 Output Total 8940 1400 950 400 Balance -4195 737 3857 80 Weight 106.7 kg 107.5 kg 104.9 kg Laboratory Results (Last 24 hours) 10/08/20 10/08/20 10/07/20 11:27 07:18 19:53 POC Glucometer 183 H 278 H 386 H 10/07/20 15:58 POC Glucometer 389 H Orders (Last 24 hours) Category Date Time Status POCT GLUCOSE Stat Lab 10/07/20 15:58 Completed POCT GLUCOSE Stat Lab 10/07/20 19:53 Completed POCT GLUCOSE Stat Lab 10/08/20 07:18 Completed POCT GLUCOSE Stat Lab 10/08/20 11:27 Completed Benzonatate 100 mg [Tessalon Perles 100 MG] Med 10/07/20 13:00 Active 100 mg PO QID Patient Care Notes (Last 24 hours) 10/08/20 12:30 Case Management Note by Alicia Palacios SENT HOME OXYGEN ORDER AND ORDER FOR WALKER TO [facility] AT THIS TIME. PATIENT REPORTS SHE HAS A WORKING NEB MACHINE AT HOME. NO OTHER NEW NEEDS IDENTIFIED AT THIS TIME FOR DC. (DR. LINDER WAS ASKED IF HE WANTED PATIENT TO CONTINUE TO CHECK BLOOD SUGARS AT HOME- HE STATES NOT AT THIS TIIME- HE WILL ADDRESS THIS IN THE OFFICE AT HER FOLLOW UP APT.) Initialized on 10/08/20 12:30 - END OF NOTE 10/08/20 12:29 Physical Therapy Note by Rupa Benson PT. REPORTS FEELING BETTER TODAY. HAS BEEN ABLE TO AMBULATE TO THE BATHROOM AND PERFORM HYGIENE INDEPENDENTLY. STATES SHE IS FEELING BETTER. REPORTS R L-SPINE PN IS BETTER BUT DOES INCREASE W/ BOUTS OF COUGHING. PT. ON 5 LO2 UPON P.T. ARRIVAL TO ROOM. O2 SATS 95% AT REST ON 5L. PT. AGREEABLE TO LONGER WALK W/ P.T. PT. PERFORMING BED MOBILITY AND TRANSFERS MOD I. PT. WALKED 150' W/ 4 L O2 AND ONE REST BREAK IN STANDING - O2 SATS ~91-92% DURING WALK. PT. WAS SLIGHTLY FATIGUED AFTER WALK BUT OVERALL TOLERATED MUCH BETTER. WILL CONT PT TO ADDRESS DECREASED ENDURANCE AND LE WEAKNESS TO MAXIIZE FUNCTIONAL POTENTIAL FOR SAFE RETURN HOME. RUPA BENSON PT Initialized on 10/08/20 12:29 - END OF NOTE 10/08/20 12:17 Nursing Note by Paxton Shell DR ROUNDED ON PT, PT OK TO DC HOME WITH OXYGEN, LEVAQUIN, LASIX, POTASSIUM AND DUO NEBS Initialized on 10/08/20 12:17 - END OF NOTE 10/08/20 07:57 Nursing Note by Paxton Shell RECHECKED PTS BP MANUALLY, 166/80 Initialized on 10/08/20 07:57 - END OF NOTE - Vitals & Intake/Output Vital Signs: Vital Signs Temperature 97.9 F 10/08/20 11:00 Pulse Rate 79 10/08/20 11:00 Respiratory Rate 16 10/08/20 11:00 Blood Pressure 161/72 10/08/20 11:00 O2 Sat by Pulse Oximetry 92 L 10/08/20 11:00 Intake & Output: Intake & Output 10/06/20 10/07/20 10/08/20 10/09/20 11:59 11:59 11:59 11:59 Intake [place] 20047 4807 480 Output Total 0 1400 950 400 Balance -4195 737 3857 80 Weight 106.7 kg 107.5 kg 104.9 kg - Lab Result Diagrams: 10/07/20 04:33 10/07/20 04:33 Lab Results-Last 24 Hrs: Lab Results-Last 24 Hours 10/07/20 10/07/20 10/08/20 Range/Units 15:58 19:53 07:18 POC Glucometer 389 H 386 H 278 H (74 to 106) mg/dL 10/08/20 Range/Units 11:27 POC Glucometer 183 H (74 to 106) mg/dL Micro Results-Entire Visit: Accuchecks Date 10/08/20 Date 10/07/20 Time 07:41 Time 19:53 - Procedures and Test Procedures and Tests throughout Hospitalization: Therapy Orders & Screens 10/02/20 20:36 Respiratory Therapy Assessment DAILY Comment: 10/02/20 23:00 Oxygen Nasal Cannula 2 lpm Comment: 10/03/20 00:36 RT Screen per Nursing Assess ONCE Comment: Protocol Order Physician Instructions: Greater than 3 points order RT Admission Screen Reason For Exam: Triggered on Admission Diagnosis: ARF Diagnosis: ARF Pneumonia: No Home O2: No Asthma: Yes CHF: Yes Home CPAP/BIPAP: No Home Nebs/MDI: Yes Total Points: 12 Smoking Cessation Education ONCE Comment: Diagnosis: ARF Smoking Status: Current every day smoker How long have you smoked: years Approximately how many cigarettes per day: 30 Do you dip or chew tobacco: No 10/03/20 11:46 Qualify for Home Oxygen TODAY Comment: Diagnosis: c/o low back pain for 1 week 10/03/20 12:00 Qualify for Home Oxygen ROUTINE Comment: Diagnosis: chf,exac copd,rf 10/03/20 12:28 PT Eval & Treat (MD Order) ONCE Reason for Eval:: SEEN IN ER FOR BACK PAIN, SHE WAS TOLD TO USE A WALKER BY ER PHYSICIAN. PATIENT DOES NOT CURRENTLY HAVE A WALKER Diagnosis: c/o low back pain for 1 week 10/03/20 17:27 Oxygen Oxymask LPM 6 lpm Comment: Diagnosis: c/o low back pain for 1 week Discharge Exam General Appearance: no apparent distress, alert Neurologic Exam: alert, 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, cooperative, normal mood/affect, nml cerebellar function, sensation nml, No motor deficits Eye Exam: PERRL, EOMI, eyes nml inspection Ears, Nose, Throat Exam: normal ENT inspection, pharynx normal, moist mucous membranes Neck Exam: normal inspection, non-tender, supple, full range of motion Respiratory Exam: normal breath sounds, lungs clear, No respiratory distress Cardiovascular Exam: regular rate/rhythm, normal heart sounds Gastrointestinal/Abdomen Exam: soft, No tenderness, No mass Pelvic Exam: deferred Rectal Exam: deferred Back Exam: normal inspection, normal range of motion, No CVA tenderness, No vertebral tenderness Extremity Exam: normal inspection, normal range of motion Skin Exam: normal color, warm, dry Final Diagnosis/Problem List - Final Discharge Diagnosis/Problem (1) COPD exacerbation Current Visit: Yes Status: Resolved Code(s): J44.1 - CHRONIC OBSTRUCTIVE PULMONARY DISEASE W (ACUTE) EXACERBATION (2) Acute respiratory failure with hypoxia Current Visit: Yes Status: Resolved Code(s): J96.01 - ACUTE RESPIRATORY FAILURE WITH HYPOXIA (3) Low back pain potentially associated with spinal stenosis Current Visit: Yes Status: Chronic Code(s): M54.5 - LOW BACK PAIN (4) HTN (hypertension) Current Visit: Yes Status: Chronic Code(s): I10 - ESSENTIAL (PRIMARY) HYPERTENSION - Discharge Discharge Date: 10/08/20 Disposition: Home, Self-Care Condition: Stable Prescriptions: New Albuterol/Ipratropium 3ml Neb* [DUONEB 0.5-3 MG/3 ml Neb] 3 ml IH Q4HPRN PRN ampul.neb PRN Reason: Shortness Of Breath/Wheezing Albuterol/Ipratropium 3ml Neb* [DUONEB 0.5-3 MG/3 ml Neb] 3 ml IH QIDRT #120 ampul.neb Potassium Chloride 10 Meq Tab* [Klor Con 10 MEQ] 10 meq PO BID #30 tab Furosemide 40 mg [Lasix 40 MG] 40 mg PO DAILY #30 tablet Levofloxacin [Levaquin] 500 mg PO DAILY #3 tablet Continue Ropinirole HCl [Requip] 2 mg PO TID Alprazolam [Xanax] 0.25 mg PO TID Oxybutynin Chloride [Oxybutynin Chloride ER] 5 mg PO DAILY Lisinopril/Hydrochlorothiazide [Lisinopril-Hctz 10-12.5 mg Tab] 1 each PO DAILY Bupropion HCl Xl 150 mg [Wellbutrin XL 150 MG] 150 mg PO DAILY Instructions: Chronic Obstructive Pulmonary Disease (COPD) (DC), Oxygen Therapy, Adult (DC) Additional Instructions: YOU NEED TO WEAR 5L/NC AT ALL TIMES CALL [facility] WHEN YOU GET HOME AT [phone] SO THEY CAN DELIVER YOUR HOME OXYGEN AND WALKER Follow up with: ARSH LINDER MD [Primary Care Provider] - 10/17/20 10:45 am
== END 2020-10-08 14:45 | disposition home or self-care (01) | DRG 190 ==
LOC: ED 16:55 → MED SURG 22:57 → OBSVTOIN 10-05 14:15 → MED SURG 10-05 14:16
PROVIDERS: ADMIT General Practice; ATTEND General Practice
DX: J44.1 Chronic obstructive pulmonary disease with (acute) exacerbation (principal); J96.01 Acute respiratory failure with hypoxia; M54.5 Low back pain; F17.210 Nicotine dependence, cigarettes, uncomplicated; I10 Essential (primary) hypertension; Z79.899 Other long term (current) drug therapy; M48.061 Spinal stenosis, lumbar region without neurogenic claudication
CPT/HCPCS: 36415; 71045; 72131; 80053; 81001; 82947; 83036; 83605; 83735; 83880; 84484; 85025; 93005; 93268; 93306; 93925; 94640; 94760; 94762; 96365; 96374; 97110; 97161; 97530; 99285; G0378; U0003; J0456; J0696; J1817; J1940; J2930; A9270-GY

== ENCOUNTER 2020-11-01 16:24 | Emergency (ER) | payer MEDICARE ==
[2020-11-01] MEDS ORDERED: BABY ASPIRIN 81 MG CHEW PO ONE (16:34)
--- NOTE | 2020-11-01 16:34 | ERPHSYRPT ---
- History of Present Illness Source: patient Exam Limitations: no limitations Timing/Duration: today, hour(s) (2) Severity of Dyspnea-Max: mild Severity of Dyspnea-Current: mild Possible Cause: frequent episodes, chronic episodes Modifying Factors: Improves With: activity, coughing, oxygen Associated Symptoms: cough, chest pain/discomfort (Described as mild tightness), tightness Hx Tetanus, Diphtheria Vaccination/Date Given: Yes Hx Influenza Vaccination/Date Given: No Hx Pneumococcal Vaccination/Date Given: No <CAREN DYKES - Last Filed: 11/01/20 18:52> <ADEBAYO MADDOX - Last Filed: 11/01/20 21:19> - History of Present Illness Time Seen by Provider: 11/01/20 16:33 Physician History: This is a morbidly obese oxygen dependent 64-year-old white female who has chronic tobacco abuse, COPD, fibromyalgia chronic weakness and is on 4 L nasal cannula of oxygen at home and presents with chest tightness that began approximately 2 hours prior to arrival. Patient typically transports via wheelchair. Her primary care doctor is Dr. Linder. Patient has a chronic cough. She denies fever. She has chronic shortness of breath and it is not different than usual for her. Patient has had several episodes of COPD exacerbation. (CAREN DYKES) Allergies/Adverse Reactions: codeine Allergy (Intermediate, Verified 10/02/20 17:09) rash, itching cefaclor [From Ceclor] Allergy (Mild, Verified 10/02/20 17:09) Rash Penicillins Allergy (Mild, Verified 10/02/20 17:09) Swelling bacitracin [From Neosporin ([id number]-[id number])] Adverse Reaction (Mild, Verified 0 10/03/20 12:22) Itching bacitracin zinc [From Neosporin ([id number]-iqh-[id number])] Adverse Reaction (Mild, Alexis ified 10/03/20 12:22) Itching levofloxacin [From Levaquin] Adverse Reaction (Mild, Verified 10/03/20 12:22) itch neomycin sulfate [From Neosporin ([id number]-omt-yzser)] Adverse Reaction (Mild, Verified 10/03/20 12:22) itch polymyxin B [From Neosporin (vky-acl-pjvqt)] Adverse Reaction (Mild, Verified 12:22) Itching Home Medications: Ropinirole HCl [Requip] 2 mg PO TID 03/05/14 [History] Alprazolam [Xanax] 0.25 mg PO TID 08/18/19 [History] Lisinopril/Hydrochlorothiazide [Lisinopril-Hctz 10-12.5 mg Tab] 1 each PO DAILY 10/03/20 [History] Oxybutynin Chloride [Oxybutynin Chloride ER] 5 mg PO DAILY 10/03/20 [History] Bupropion HCl Xl 150 mg [Wellbutrin XL 150 MG] 150 mg PO DAILY 10/06/20 [History] Travel Risk - International Travel Have you traveled outside of the country in past 3 weeks: No - Coronavirus Screening Are you exhibiting any of the following symptoms?: No Close contact with a COVID-19 positive Pt in past 14-21 Days: No <CAREN DYKES - Last Filed: 11/01/20 18:52> - Review of Systems Constitutional: Weakness Eyes: No Symptoms Ears, Nose, & Throat: No Symptoms Respiratory: Cough, Dyspnea Cardiac: Chest Pain (Described as mild tightness) Abdominal/Gastrointestinal: No Symptoms Genitourinary Symptoms: No Symptoms Musculoskeletal: No Symptoms Skin: No Symptoms Neurological: No Symptoms Psychological: No Symptoms Endocrine: No Symptoms Hematologic/Lymphatic: No Symptoms Immunological/Allergic: No Symptoms All Other Systems: Reviewed and Negative <CAREN DYKES - Last Filed: 11/01/20 18:52> - Past Medical History Pertinent Past Medical History: Yes Neurological History: No Pertinent History ENT History: No Pertinent History Cardiac History: No Pertinent History Respiratory History: COPD, Emphysema Endocrine Medical History: No Pertinent History Musculoskeletal History: Arthritis, Fibromyalgia GI Medical History: No Pertinent History History: Other Psycho-Social History: No Pertinent History Female Reproductive Disorders: No Pertinent History Other Medical History: leaky bladder - Past Surgical History Past Surgical History: Yes Neuro Surgical History: No Pertinent History Cardiac: No Pertinent History Respiratory: No Pertinent History Gastrointestinal: Cholecystectomy Genitourinary: No Pertinent History Musculoskeletal: No Pertinent History Female Surgical History: No Pertinent History, Tubal Ligation - Social History Smoking Status: Current every day smoker How long have you smoked: years Exposure to second hand smoke: Yes Drug Use: none Patient Lives Alone: No <CAREN DYKES KyawRoger - Last Filed: 11/01/20 18:52> - Physical Exam General Appearance: no apparent distress, alert, anxiety, obese, other (Smells strongly of tobacco use) Eye Exam: PERRL/EOMI, eyes nml inspection Ears, Nose, Throat Exam: hearing grossly normal Neck Exam: normal inspection, non-tender, supple, full range of motion Respiratory Exam: normal breath sounds, airway intact, rhonchi (Mild diffuse rhonchi), No chest tenderness, No respiratory distress Cardiovascular/Chest Exam: normal heart sounds, regular rate/rhythm, normal peripheral pulses Abdominal/Gastrointestinal Exam: soft, normal bowel sounds, No tenderness Rectal Exam: not done Extremity Exam: non-tender, normal range of motion, normal inspection, normal capillary refill, no calf tenderness, no pedal edema, pelvis stable Neurologic Exam: alert, 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, cooperative, normal mood/affect Skin Exam: normal color, warm, dry Lymphatic Exam: No adenopathy SpO2 Interpretation: normal <DYKESCAREN KyawRoger - Last Filed: 11/01/20 18:52> - Nursing Vital Signs Nursing Vital Signs: Initial Vital Signs Temperature 99.0 F 11/01/20 16:28 Pulse Rate 102 H 11/01/20 16:28 Respiratory Rate 24 11/01/20 16:28 Blood Pressure 164/76 11/01/20 16:28 O2 Sat by Pulse Oximetry 93 L 11/01/20 16:28 Pain Scale Pain Intensity 0 - Course Nursing assessment & vital signs reviewed: Yes EKG Interpreted by Me: RATE (100), Sinus Rhythm, NORMAL AXIS, NORMAL INTERVALS, NORMAL QRS, Right Bundle Branch Block, NORMAL ST-T, Other (There are no acute ischemic changes on today's EKG. When compared to EKG dated October 05, 2020, there are no changes.) <CAREN DYKES - Last Filed: 11/01/20 18:52> Ordered Tests: Active Orders 24 hr Category Date Time Status Automatic Beading Lathe Operator STAT Care 11/01/20 16:35 Active EKG-ER Only STAT Care 11/01/20 16:34 Active IV Insertion STAT Care 11/01/20 16:34 Active Oxygen-ED Only Nasal Cannula 4 lpm Care 11/01/20 16:34 Active Pulse Oximetry (ED) STAT Care 11/01/20 16:34 Active CHEST 1 VIEW (PORTABLE) Stat Exams 11/01/20 16:56 Completed CHEST WITH CONTRAST [CT] Stat Exams 11/01/20 18:29 Taken CBC W DIFF Stat Lab 11/01/20 17:00 Completed CMP Stat Lab 11/01/20 17:00 Completed D-DIMER QUANTITATIVE Stat Lab 11/01/20 17:00 Completed Manual Differential NC Stat Lab 11/01/20 17:00 Completed NT PRO BNP Stat Lab 11/01/20 17:00 Completed TROPONIN Q3H Lab 11/01/20 08:00 Completed TROPONIN Q3H Lab 11/01/20 17:00 Completed TROPONIN Q3H Lab 11/01/20 22:45 Ordered TROPONIN Q3H Lab 11/02/20 01:45 Ordered TROPONIN Q3H Lab 11/02/20 04:45 Ordered Medication Summary Discontinued Medications Generic Name Dose Route Start Last Admin Trade Name Freq PRN Reason Stop Dose Admin Aspirin 324 mg 11/01/20 16:34 11/01/20 16:40 Baby Aspirin 81 Mg Chew PO 11/01/20 16:35 324 mg STAT ONE Administration Enalaprilat 1.25 mg 11/01/20 18:53 11/01/20 19:24 Vasotec I.V. 2.5 Mg IV 11/01/20 18:54 1.25 mg STAT ONE Administration Enalaprilat Confirm 11/01/20 19:24 Vasotec I.V. 2.5 Mg Administered 11/01/20 19:25 Dose 2.5 mg IV .STK-MED ONE Sodium Chloride 500 mls @ 500 mls/hr 11/01/20 17:50 11/01/20 19:31 Sodium Chloride 0.9% 500 Ml IV 11/01/20 18:49 Infused .Q1H ONE Infusion Azithromycin 500 mg in 250 mls @ 250 mls/hr 11/01/20 17:53 11/01/20 19:31 Zithromax 500 Mg/ 250 Ml Nacl Premix IV 11/01/20 18:52 Infused STAT STA Infusion Azithromycin Confirm 11/01/20 17:56 Zithromax 500 Mg/ 250 Ml Nacl Premix Administered 11/01/20 17:57 Dose 500 mg in 250 mls @ ud IV .STK-MED ONE Sodium Chloride Confirm 11/01/20 17:56 Sodium Chloride 0.9% 500 Ml Administered 11/01/20 17:57 Dose 500 mls @ ud IV .STK-MED ONE Lorazepam 1 mg 11/01/20 18:13 11/01/20 18:19 Ativan 2 Mg/1 Ml Vial IV 11/01/20 18:14 1 mg STAT ONE Administration Lorazepam Confirm 11/01/20 18:15 Ativan 2 Mg/1 Ml Vial Administered 11/01/20 18:16 Dose 2 mg .ROUTE .STK-MED ONE Methylprednisolone Sodium Succinate 125 mg 11/01/20 17:53 11/01/20 17:58 Solu-Medrol 125 Mg IV 11/01/20 17:54 125 mg STAT ONE Administration Methylprednisolone Sodium Succinate Confirm 11/01/20 17:56 Solu-Medrol 125 Mg Administered 11/01/20 17:57 Dose 125 mg .ROUTE .STK-MED ONE Morphine Sulfate 2 mg 11/01/20 17:06 11/01/20 17:30 Morphine Sulfate 2 Mg Inj IV 11/01/20 17:07 2 mg STAT ONE Administration Morphine Sulfate Confirm 11/01/20 17:27 Morphine Sulfate 2 Mg Inj Administered 11/01/20 17:28 Dose 2 mg .ROUTE .STK-MED ONE Ondansetron HCl 4 mg 11/01/20 17:06 11/01/20 17:30 Zofran 4 Mg/2 Ml Vial IV 11/01/20 17:07 4 mg STAT ONE Administration Ondansetron HCl Confirm 11/01/20 17:27 Zofran 4 Mg/2 Ml Vial Administered 11/01/20 17:28 Dose 4 mg .ROUTE .STK-MED ONE Lab/Rad Data: Laboratory Result Diagrams 11/01/20 17:00 11/01/20 17:00 Laboratory Results 11/01/20 11/01/20 11/01/20 Range/Units 17:00 17:00 17:00 WBC (4.0-10.5) K/mm3 RBC (4.1-5.4) M/mm3 Hgb (12.0-16.0) gm/dl Hct (35-47) % MCV (78-100) fl MCH (26-32) pg MCHC (32-36) g/dl RDW (11.5-14.0) % Plt Count (150-450) K/mm3 MPV (7.5-11.0) fl Segmented Neutrophils (36.0-66.0) % Lymphocytes (Manual) (24-44) % Monocytes (Manual) (0.0-12.0) % Eosinophils (Manual) (0.00-3.0) % Platelet Estimate (NORMAL) RBC Morphology D-Dimer 827 H* (215-500) ng/mL Sodium 139 (137-145) mmol/L Potassium 4.5 (3.5-5.1) mmol/L Chloride 102 (98-107) mmol/L Carbon Dioxide 33 H (22-30) mmol/L Anion Gap 8.7 (5-15) MEQ/L BUN 21 H (7-17) mg/dL Creatinine 0.86 (0.52-1.04) mg/dL Estimated GFR > 60.0 ML/MIN Glucose 185 H (74-106) mg/dL Calcium 9.8 (8.4-10.2) mg/dL Total Bilirubin 0.20 (0.2-1.3) mg/dL AST 18 (14-36) U/L ALT 16 (0-35) U/L Alkaline Phosphatase 62 (38-126) U/L Troponin I < 0.012 (0.000-0.034) ng/mL NT-Pro-B Natriuret Pep 88.7 (0-900) pg/mL Serum Total Protein 7.2 (6.3-8.2) g/dL Albumin 3.9 (3.5-5.0) g/dL 11/01/20 11/01/20 Range/Units 17:00 08:00 WBC 5.7 (4.0-10.5) K/mm3 RBC 4.64 (4.1-5.4) M/mm3 Hgb 13.7 (12.0-16.0) gm/dl Hct 44.7 (35-47) % MCV 96.3 (78-100) fl MCH 29.5 (26-32) pg MCHC 30.6 L (32-36) g/dl RDW 15.6 H (11.5-14.0) % Plt Count 219 (150-450) K/mm3 MPV 10.7 (7.5-11.0) fl Segmented Neutrophils 65 (36.0-66.0) % Lymphocytes (Manual) 24 (24-44) % Monocytes (Manual) 7 (0.0-12.0) % Eosinophils (Manual) 4 H (0.00-3.0) % Platelet Estimate NORMAL (NORMAL) RBC Morphology NORMAL D-Dimer (215-500) ng/mL Sodium (137-145) mmol/L Potassium (3.5-5.1) mmol/L Chloride (98-107) mmol/L Carbon Dioxide (22-30) mmol/L Anion Gap (5-15) MEQ/L BUN (7-17) mg/dL Creatinine (0.52-1.04) mg/dL Estimated GFR ML/MIN Glucose (74-106) mg/dL Calcium (8.4-10.2) mg/dL Total Bilirubin (0.2-1.3) mg/dL AST (14-36) U/L ALT (0-35) U/L Alkaline Phosphatase (38-126) U/L Troponin I < 0.012 (0.000-0.034) ng/mL NT-Pro-B Natriuret Pep (0-900) pg/mL Serum Total Protein (6.3-8.2) g/dL Albumin (3.5-5.0) g/dL - Progress Progress: improved Air Movement: fair Blood Culture(s) Obtained: No Antibiotics given: Yes Counseled pt/family regarding: lab results, diagnosis, need for follow-up, rad results <CAREN DYKES - Last Filed: 11/01/20 18:52> <ADEBAYO MADDOX - Last Filed: 11/01/20 21:19> - Progress Progress Note: 11/01/20 17:37 Chest x-ray again shows mild bilateral interstitial opacities. There appears to be atelectasis versus mild early infiltrate left lung base. 11/01/20 18:00 11/01/20 18:54 Patient is transferred to Dr. Maddox at shift change. He will make final disposition. I reviewed the patient history, laboratory work-up and chest x-ray result. CTA of chest is pending. (CAREN DYKES) Patient is checked out to me at shift change from Dr. Dykes with pending CTA chest. On my evaluation patient is feeling better and her chest pain is resolved. She has few wheezes bilaterally but maintaining oxygen saturation around 98% on 3 L which she is normally on all the time. Her chest pain is completely resolved. I have repeated second troponin and it is negative. She does not have any history of CAD. I think patient has COPD exacerbation/bronchitis and agree with Dr. Dykes starting her on prednisone and Zithromax. At this point I do not think patient needs any further work-up and is stable for discharge with outpatient follow-up with primary care. I also have recommended follow-up with cardiology because of her chest pain although her work-up in the past been negative. Discussed signs symptoms of worsening needing return to ER which she seems understanding. 11/01/20 21:17 (ADEBAYO MADDOX) - Departure Departure Disposition: Home Critical Care Time: No <CAREN DYKES - Last Filed: 11/01/20 18:52> - Departure Critical Care Time: No <ADEBAYO MADDOX - Last Filed: 11/01/20 21:19> - Departure Clinical Impression: Infiltrate of lung present on chest x-ray, COPD exacerbation Hypertension Qualifiers: Hypertension type: essential hypertension Qualified Code(s): I10 - Essential (primary) hypertension Condition: Stable Referrals: ARSH LINDER MD [Primary Care Provider] - Follow Up with PCP/3 days HANY FORREST [ACTIVE STAFF] - Follow Up with PCP/3 days Instructions: Chronic Obstructive Pulmonary Disease, Exacerbation of COPD (DC) Additional Instructions: Follow-up with primary care physician for reevaluation. Also follow-up with cardiology for stress test and further evaluation for intermittent chest pains. Return to ER for worsening chest pain palpitations or shortness of breath. Prescriptions: Prednisone 10 mg [Deltasone 10 mg] 10 mg PO TID #12 tablet Azithromycin 250 mg [Zithromax 250 MG TABLET] 250 mg PO ZPACK #6 tablet
[2020-11-01] MEDS ORDERED: MORPHINE SULFATE 2 MG INJ IV ONE (17:06)
[2020-11-01] MEDS ORDERED: Zofran 4 MG/2 ML VIAL IV ONE (17:06)
[2020-11-01 17:21] LABS: Hematocrit 44.7 % (35-47); Hemoglobin 13.7 gm/dl (12.0-16.0); Mean Cell Volume 96.3 fl (78-100); Mean Corpuscular Hemoglobin 29.5 pg (26-32); Mean Corpuscular Hgb Concent. 30.6 g/dl (32-36); Mean Platelet Volume 10.7 fl (7.5-11.0); Platelet Count 219 K/mm3 (150-450); Red Blood Count 4.64 M/mm3 (4.1-5.4); Red Cell Distribution Width 15.6 % (11.5-14.0); White Blood Count 5.7 K/mm3 (4.0-10.5)
[2020-11-01] MEDS ORDERED: MORPHINE SULFATE 2 MG INJ ONE (17:27)
[2020-11-01] MEDS ORDERED: Zofran 4 MG/2 ML VIAL ONE (17:27)
--- NOTE | 2020-11-01 17:31 | XRAY ---
Exam: AP upright portable chest film from 11/01/2020. Comparison: AP upright portable chest film from 10/06/2020 and 10/02/2020. Indication: 64-year-old female with shortness of breath and cough; smoker; history of COPD. Findings: The heart size appears within normal limits for this AP portable technique. Atherosclerotic vascular calcification within the aortic knob and slight tortuosity of the descending thoracic aorta are seen. There is average inflation of the lungs. I again see mild increased bibasilar interstitial opacities, left greater than right. There may be some superimposed atelectasis or mild infiltrate at the left lung base as well. Pneumonia cannot be excluded at this latter site. The upper and midlung zones appear clear bilaterally. No pneumothorax or pleural effusion is seen. No acute osseous process is noted. Impression: 1. I again see some prominent bibasilar interstitial opacities, left greater than right. In addition, there appears to be some superimposed atelectasis and/or infiltrate at the left lung base. The possibility of pneumonia at the left lung base is not excluded. 2. No other acute cardiopulmonary disease is seen.
[2020-11-01 17:48] LABS: ALBUMIN 3.9 g/dL (3.5-5.0); ALKALINE PHOSPHATASE 62 U/L (38-126); ANION GAP 8.7 MEQ/L (5-15); BLOOD UREA NITROGEN 21 mg/dL (7-17); CHLORIDE 102 mmol/L (98-107); Calcium 9.8 mg/dL (8.4-10.2); Carbon Dioxide 33 mmol/L (22-30); Creatinine 1 0.86 mg/dL (0.52-1.04); EST GLOMERULAR FILTRATION RATE > 60.0 ML/MIN; Glucose 185 mg/dL (74-106); NT PRO BNP 88.7 pg/mL (0-900); Potassium 4.5 mmol/L (3.5-5.1); SGOT/AST 18 U/L (14-36); SGPT/ALT 16 U/L (0-35); SODIUM 139 mmol/L (137-145); Total Protein 7.2 g/dL (6.3-8.2)
[2020-11-01] MEDS ORDERED: Sodium Chloride 0.9% 500 ML 500 ML IV ONE ×2 (17:50→17:56)
[2020-11-01] MEDS ORDERED: solu-MEDROL 125 MG IV ONE (17:53)
[2020-11-01] MEDS ORDERED: Zithromax 500 MG/ 250 ML NaCl Premix 500 MG/250 ML IVPB IV ONE (17:56)
[2020-11-01] MEDS ORDERED: solu-MEDROL 125 MG ONE (17:56)
[2020-11-01] MEDS: Zithromax 500 MG/ 250 ML NaCl Premix 500 MG/250 ML IVPB IV STA ×2 (17:59→18:12)
[2020-11-01 18:02] LABS: Eosinophil 4 % (0.00-3.0); Lymphocytes 24 % (24-44); Monocyte 7 % (0.0-12.0); Neutrophils 65 % (36.0-66.0); Total Cells Counted 100
[2020-11-01 18:03] LABS: Platelet Estimate NORMAL (NORMAL)
[2020-11-01] MEDS ORDERED: Ativan 2 MG/1 ML VIAL IV ONE (18:13)
[2020-11-01] MEDS ORDERED: Ativan 2 MG/1 ML VIAL ONE (18:15)
[2020-11-01] MEDS ORDERED: VASOTEC I.V. 2.5 MG IV ONE ×2 (18:53→19:24)
[2020-11-01 19:30] VITALS: O2SAT 96
[2020-11-01 21:11] VITALS: BP 165/65; PULSE 94
--- NOTE | 2020-11-01 21:48 | XRAY ---
Indication: Short of breath. Elevated d-dimer. Multiple contiguous axial images obtained through the chest using 80 cc Isovue 370 contrast and PE protocol. Comparison: None There is satisfactory opacification of the pulmonary arteries. However mild respiration artifact limits evaluation of the more distal lobar and segmental branches. No central pulmonary embolus. Heart is enlarged. Aorta is normal in course and caliber with minimal arteriosclerotic calcifications. Tiny right hilar calcified nodes. No pathologic mediastinal/hilar lymphadenopathy. Lungs demonstrates lingula and bibasilar subsegmental atelectasis/scarring. A few tiny bilateral calcified granulomas. No suspicious pulmonary mass, infiltrate, or effusion. Bony thorax intact with minimal degenerative changes throughout the spine. Limited upper abdomen demonstrates 1.2 x 3.0 cm left adrenal adenoma and cholecystectomy clips. Impression: 1. Pulmonary embolus evaluation limited by respiration artifact. No central pulmonary embolus. 2. Cardiomegaly without CHF. 3. Incidental scattered atelectasis/scarring, left adrenal adenoma, and old granulomatous disease. Comment: Preliminary interpretation was made by [facility]. No critical discrepancy.
== END 2020-11-01 21:20 | disposition home or self-care (01) ==
LOC: ED 16:24
DX: R07.9 Chest pain, unspecified (principal); J44.1 Chronic obstructive pulmonary disease with (acute) exacerbation; R05 Cough; R91.8 Other nonspecific abnormal finding of lung field; R53.1 Weakness; I10 Essential (primary) hypertension; E66.9 Obesity, unspecified; F17.210 Nicotine dependence, cigarettes, uncomplicated; Z99.81 Dependence on supplemental oxygen; Z79.899 Other long term (current) drug therapy
CPT/HCPCS: 36000; 36415; 71045; 71260; 80053; 83880; 84484; 85025; 85379; 93005; 93041; 94760; 96360; 96365; 96374; 96375; 99285; J0456; J2060; J2270; J2405; J2930; A9270-GY

== ENCOUNTER 2020-11-19 10:36 | Emergency (ER) | payer MEDICARE ==
[2020-11-19 10:56] VITALS: O2SAT 98
--- NOTE | 2020-11-19 11:22 | ERPHSYRPT ---
- History of Present Illness Time Seen by Provider: 11/19/20 11:00 Source: patient Exam Limitations: no limitations Patient Subjective Stated Complaint: Pt states "I have had leg and feet swelling for the past month or so. Dr Linder is sending me to Dr. Garcia next week but my feet hurt so bad I cannot wait." Triage Nursing Assessment: Pt presented alert and oriented X 3, skin pwd Pt ambulates with an upright steady gait, able to speak in clear full sentences. Pt came in without her home O2, placed on 5 LPM via nc and pt able to breath better. PT legs and feet bilat swollen and tender. PT feet dry and crusted over. Physician History: This 65-year-old morbidly obese oxygen dependent (4 L nasal cannula) patient with chronic tobacco use and continues to smoke, COPD, fibromyalgia, restless leg syndrome with chronic bilateral lower extremity leg swelling on lisinopril, hydrochlorothiazide, and Lasix and presents with 2 to 3-month worsening bilateral lower extremity pain. She has had associated increased swelling as well per her report. I evaluated this patient approximately 20 days ago and the bilateral lower extremity swelling appears unchanged from my prior exam. Patient is not short of breath. Her CTA of the chest performed 20 days ago did not show any pulmonary emboli. Patient has no chest pain. She has no worsening shortness of breath. She has had no fever. Per her report, she states that she is scheduled to see a pain specialist and an/syq 13 nav/c2 operator in the next 7 to 10 days. Quality: aching, other ([id number]) Severity of Pain-Max: moderate Severity of Pain-Current: moderate Lower Extremities Pain: leg: bilateral Modifying Factors: Improves With: movement Allergies/Adverse Reactions: codeine Allergy (Intermediate, Verified 10/02/20 17:09) rash, itching cefaclor [From Ceclor] Allergy (Mild, Verified 10/02/20 17:09) Rash Penicillins Allergy (Mild, Verified 10/02/20 17:09) Swelling bacitracin [From Neosporin ([id number])] Adverse Reaction (Mild, Verified 10/03/20 12:22) Itching bacitracin zinc [From Neosporin ([id number]-trm-[id number])] Adverse Reaction (Mild, Verified 10/03/20 12:22) Itching levofloxacin [From Levaquin] Adverse Reaction (Mild, Verified 10/03/20 12:22) itch neomycin sulfate [From Neosporin ([id number])] Adverse Reaction (Mild, Verified 10/03/20 12:22) itch polymyxin B [From Neosporin ([id number]-vlj-enlob)] Adverse Reaction (Mild, Verified 10/03/20 12:22) Itching Home Medications: Ropinirole HCl [Requip] 2 mg PO TID 03/05/14 [History] Alprazolam [Xanax] 0.25 mg PO TID 08/18/19 [History] Lisinopril/Hydrochlorothiazide [Lisinopril-Hctz 10-12.5 mg Tab] 1 each PO DAILY 10/03/20 [History] Oxybutynin Chloride [Oxybutynin Chloride ER] 5 mg PO DAILY 10/03/20 [History] Bupropion HCl Xl 150 mg [Wellbutrin XL 150 MG] 150 mg PO DAILY 10/06/20 [History] Hx Tetanus, Diphtheria Vaccination/Date Given: Yes Hx Influenza Vaccination/Date Given: No Hx Pneumococcal Vaccination/Date Given: No Immunizations Up to Date: Yes Travel Risk - International Travel Have you traveled outside of the country in past 3 weeks: No - Coronavirus Screening Are you exhibiting any of the following symptoms?: No Close contact with a COVID-19 positive Pt in past 14-21 Days: No - Review of Systems Constitutional: No Symptoms Eyes: No Symptoms Ears, Nose, & Throat: No Symptoms Respiratory: No Symptoms Cardiac: No Symptoms Abdominal/Gastrointestinal: No Symptoms Genitourinary Symptoms: No Symptoms Musculoskeletal: Other (Xpjk-jfy-gncynof type pain as well as associated achiness of bilateral lower extremities) Skin: No Symptoms Neurological: No Symptoms Psychological: No Symptoms Endocrine: No Symptoms Hematologic/Lymphatic: No Symptoms Immunological/Allergic: No Symptoms All Other Systems: Reviewed and Negative - Past Medical History Pertinent Past Medical History: Yes Neurological History: No Pertinent History ENT History: No Pertinent History Cardiac History: No Pertinent History Respiratory History: COPD, Emphysema Endocrine Medical History: No Pertinent History Musculoskeletal History: Arthritis, Fibromyalgia GI Medical History: No Pertinent History History: Other Psycho-Social History: No Pertinent History Female Reproductive Disorders: No Pertinent History Other Medical History: leaky bladder - Past Surgical History Past Surgical History: Yes Neuro Surgical History: No Pertinent History Cardiac: No Pertinent History Respiratory: No Pertinent History Gastrointestinal: Cholecystectomy Genitourinary: No Pertinent History Musculoskeletal: No Pertinent History Female Surgical History: No Pertinent History, Tubal Ligation - Social History Smoking Status: Current every day smoker How long have you smoked: years Exposure to second hand smoke: Yes Drug Use: none Patient Lives Alone: No - Nursing Vital Signs Nursing Vital Signs: Initial Vital Signs Temperature 98.0 F 11/19/20 10:50 Pulse Rate 85 11/19/20 10:50 Respiratory Rate 24 11/19/20 10:50 Blood Pressure 204/84 11/19/20 10:50 O2 Sat by Pulse Oximetry 98 11/19/20 10:50 Pain Scale Pain Intensity 4 - Physical Exam General Appearance: no apparent distress, alert, anxiety, obese Eyes, Ears, Nose, Throat Exam: normal ENT inspection, moist mucous membranes Neck Exam: normal inspection, non-tender, supple, full range of motion Cardiovascular/Respiratory Exam: chest non-tender, no respiratory distress Gastrointestinal/Abdominal Exam: non-tender Back Exam: normal inspection, normal range of motion, No CVA tenderness, No vertebral tenderness Hips Exam: bilateral: non-tender, normal inspection, normal range of motion, no evidence of injury Legs Exam: bilateral leg: non-tender, normal inspection, normal range of motion, no evidence of injury, swelling (Chronic) Knees Exam: bilateral knee: non-tender, normal inspection, normal range of motion, no evidence of injury Ankle Exam: bilateral ankle: non-tender, normal inspection, normal range of motion, no evidence of injury, swelling (Chronic) Foot Exam: bilateral foot: non-tender, normal inspection, normal range of motion, no evidence of injury, swelling (Chronic), other (Poor hygiene) Neuro/Tendon Exam: normal sensation, normal motor functions, responds to pain Mental Status Exam: alert, 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, cooperative Skin Exam: normal color, warm, dry SpO2 Interpretation: normal SpO2: 98 O2 Delivery: Room Air Ordered Tests: Active Orders 24 hr Category Date Time Status VENOUS BILATERAL EXTREMITY [US] Stat Exams 11/19/20 11:16 Ordered - Progress Progress: unchanged Progress Note: 11/19/20 12:13 Venous Doppler of bilateral lower extremity shows no evidence of any deep venous thromboses. 11/19/20 12:15 Patient states that she has taken Percocet in the past for pain control without any problems or issues Counseled pt/family regarding: diagnosis, need for follow-up, rad results - Departure Departure Disposition: Home Clinical Impression: Chronic leg pain Condition: Stable Critical Care Time: No Referrals: ARSH LINDER MD [Primary Care Provider] - Additional Instructions: Call your primary care doctor today to make arrangements for follow-up appointment to address your chronic leg pain Prescriptions: Oxycodone HCl/Acetaminophen [Percocet 5-325 mg Tablet] 1 each PO Q8H PRN PRN #6 tablet MDD 3 PRN Reason: Pain
[2020-11-19 12:15] VITALS: BP 165/70; PULSE 73
[2020-11-19] MEDS ORDERED: PERCOCET TABLET 5/325MG PO STA (12:16)
[2020-11-19] MEDS ORDERED: PERCOCET TABLET 5/325MG ONE ×2 (12:20→12:22)
--- NOTE | 2020-11-19 12:30 | XRAY ---
Indication: Bilateral leg pain and swelling. Two-dimensional sonogram and color Doppler imaging of the major venous vessels of the left and right leg was performed. Comparison: None No thrombus seen in the examined deep venous vessels of the left and right leg including greater saphenous vein. Veins demonstrate normal compressibility. Venous waveforms are normal with and without augmentation. Impression: Left and right legs negative for DVT.
== END 2020-11-19 13:10 | disposition home or self-care (01) ==
LOC: ED 10:36
DX: M79.662 Pain in left lower leg (principal); M79.661 Pain in right lower leg; Z99.81 Dependence on supplemental oxygen; J44.9 Chronic obstructive pulmonary disease, unspecified; M79.7 Fibromyalgia; G25.81 Restless legs syndrome; Z79.899 Other long term (current) drug therapy
CPT/HCPCS: 93970; 99283; A9270-GY

== ENCOUNTER 2021-03-13 22:37 | Observation (INO) | payer MEDICARE ==
[2021-03-13] MEDS ORDERED: DUONEB 0.5-3 MG/3 ml Neb IH ONE ×2 (22:46→22:47)
[2021-03-13] MEDS ORDERED: Lasix 40 MG/4 ML IV ONE (22:52)
[2021-03-13] MEDS ORDERED: solu-MEDROL IV ONE (22:52)
[2021-03-13] MEDS ORDERED: NITRO-BID 2% UD PACKETS TOP ONE (22:52)
[2021-03-13] MEDS ORDERED: BABY ASPIRIN 81 MG CHEW PO ONE (22:53)
[2021-03-13] MEDS ORDERED: LEVOFLOXACIN 750MG/150ML D5W 750 MG/150 ML BAG IV STA (22:53)
--- NOTE | 2021-03-13 22:56 | ERPHSYRPT ---
- History of Present Illness Time Seen by Provider: 03/13/21 22:39 Source: patient Exam Limitations: no limitations Patient Subjective Stated Complaint: Patient states " I have been SOB for last couple of days but tonight it really got bad." Triage Nursing Assessment: . Physician History: 65 years old female with history of chronic respiratory failure on 5 L oxygen secondary to COPD, tobacco abuse, congestive heart failure, hypertension, restless leg syndrome presented in the ER with chief complaint of worsening marely rtness of breath for the last couple of days. Patient reports initially shortness of breath with activity and since morning having shortness of breath at resting. Also report associated increased cough productive of clear to yellow sputum. Patient reports having bilateral lower extremities swelling chronically which is worsening and seems like she is gaining weight. Does have some chest discomfort but no palpitations or pain. Denies any history of DVT/pulmonary embolism. No history of CAD. Timing/Duration: day(s) (2), constant, gradual onset, worse Activities at Onset: rest Severity of Dyspnea-Max: moderate Severity of Dyspnea-Current: moderate Possible Cause: occasional episodes Modifying Factors: Worsens With: activity, coughing Associated Symptoms: cough, chest pain/discomfort, edema, leg swelling, produc tive cough, tightness, No fever Allergies/Adverse Reactions: codeine Allergy (Intermediate, Verified 03/13/21 22:43) rash, itching cefaclor [From Ceclor] Allergy (Mild, Verified 03/13/21 22:43) Rash Penicillins Allergy (Mild, Verified 03/13/21 22:43) Swelling bacitracin [From Neosporin ([id number])] Adverse Reaction (Mild, Verified 03/13/21 22:43) Itching bacitracin zinc [From Neosporin ([id number])] Adverse Reaction (Mild, Verified 03/13/21 22:43) Itching levofloxacin [From Levaquin] Adverse Reaction (Mild, Verified 03/13/21 22:43) itch neomycin sulfate [From Neosporin ([id number])] Adverse Reaction (Mild, Verified 03/13/21 22:43) itch polymyxin B [From Neosporin ([id number])] Adverse Reaction (Mild, Verified 03/13/21 22:43) Itching Home Medications: Ropinirole HCl [Requip] 2 mg PO TID 03/05/14 [History] Alprazolam [Xanax] 0.25 mg PO TID 08/18/19 [History] Lisinopril/Hydrochlorothiazide [Lisinopril-Hctz 10-12.5 mg Tab] 1 each PO DAILY 10/03/20 [History] Oxybutynin Chloride [Oxybutynin Chloride ER] 5 mg PO DAILY 10/03/20 [History] Bupropion HCl Xl 150 mg [Wellbutrin XL 150 MG] 150 mg PO DAILY 10/06/20 [History] Hx Tetanus, Diphtheria Vaccination/Date Given: Yes Hx Influenza Vaccination/Date Given: No Hx Pneumococcal Vaccination/Date Given: No Immunizations Up to Date: Yes Travel Risk - International Travel Have you traveled outside of the country in past 3 weeks: No - Coronavirus Screening Are you exhibiting any of the following symptoms?: No Close contact with a COVID-19 positive Pt in past 14-21 Days: No - Vaccine Status Have you recieved a Covid-19 vaccination: No - Review of Systems Constitutional: No Symptoms Eyes: No Symptoms Ears, Nose, & Throat: No Symptoms Respiratory: Cough, Dyspnea, Dyspnea on Exertion (MEJIA), Wheezing Cardiac: Edema, Orthopnea Abdominal/Gastrointestinal: No Symptoms Genitourinary Symptoms: No Symptoms Musculoskeletal: No Symptoms Neurological: No Symptoms Psychological: No Symptoms Endocrine: No Symptoms Hematologic/Lymphatic: No Symptoms Immunological/Allergic: No Symptoms - Past Medical History Pertinent Past Medical History: Yes Neurological History: No Pertinent History ENT History: No Pertinent History Cardiac History: No Pertinent History Respiratory History: COPD, Emphysema Endocrine Medical History: No Pertinent History Musculoskeletal History: Arthritis, Fibromyalgia GI Medical History: No Pertinent History History: Other Psycho-Social History: No Pertinent History Female Reproductive Disorders: No Pertinent History Other Medical History: Stress Incontinence - Past Surgical History Past Surgical History: Yes Neuro Surgical History: No Pertinent History Cardiac: No Pertinent History Respiratory: No Pertinent History Gastrointestinal: Cholecystectomy Genitourinary: No Pertinent History Musculoskeletal: No Pertinent History Female Surgical History: No Pertinent History, Tubal Ligation - Social History Smoking Status: Current every day smoker How long have you smoked: 25 years Exposure to second hand smoke: Yes Drug Use: none Patient Lives Alone: No - Female History Hx Last Menstrual Period: POST - Nursing Vital Signs Nursing Vital Signs: Initial Vital Signs Temperature 98.4 F 07/08/21 22:43 Pulse Rate 95 H 03/13/21 22:43 Respiratory Rate 24 03/13/21 22:43 Blood Pressure 215/103 03/13/21 22:43 O2 Sat by Pulse Oximetry 96 03/13/21 22:43 Pain Scale Pain Intensity 1 - Physical Exam General Appearance: mild distress Eye Exam: PERRL/EOMI, eyes nml inspection Ears, Nose, Throat Exam: hearing grossly normal, pharyngeal erythema Neck Exam: normal inspection, non-tender, full range of motion Respiratory Exam: diminished breath sounds, crackles/rales, rhonchi, wheezing Cardiovascular/Chest Exam: normal heart sounds, regular rate/rhythm Abdominal/Gastrointestinal Exam: soft, normal bowel sounds Extremity Exam: pedal edema, swelling, No kristi's sign Neurologic Exam: alert, 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, cooperative, 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 as tested Skin Exam: normal color SpO2 Interpretation: normal SpO2: 98 O2 Delivery: Room Air - Course EKG Interpreted by Me: RATE (98), Sinus Rhythm, Right Bundle Branch Block, Non- specific ST Changes Ordered Tests: Active Orders 24 hr Category Date Time Status Metrology Manager STAT Care 03/13/21 22:52 Active EKG-ER Only STAT Care 03/13/21 22:52 Active IV Insertion STAT Care 03/13/21 22:52 Active CHEST 1 VIEW (PORTABLE) Stat Exams 03/13/21 22:52 Taken BLOOD CULTURE Stat Lab 03/13/21 23:20 Received CBC W DIFF Stat Lab 03/13/21 23:00 Completed CMP Stat Lab 03/13/21 23:00 Completed Lactic Acid Stat Lab 03/13/21 23:05 Completed MAGNESIUM Stat Lab 03/13/21 23:00 Completed NT PRO BNP Stat Lab 03/13/21 23:00 Completed TROPONIN Q3H Lab 03/13/21 23:00 Completed TROPONIN Q3H Lab 03/14/21 01:38 Received TROPONIN Q3H Lab 03/14/21 05:00 Ordered TROPONIN Q3H Lab 03/14/21 08:00 Ordered TROPONIN Q3H Lab 03/14/21 11:00 Ordered Respiratory Therapy Assessment DAILY RT 03/13/21 22:51 Active Transfer Order Routine Transfer 03/14/21 Ordered Medication Summary Generic Name Dose Route Start Last Admin Trade Name Freq PRN Reason Stop Dose Admin Nitroglycerin/Dextrose 250 mls @ 1.5 mls/hr 03/14/21 00:10 Ntg 0.2mg/Ml In D5w Glass IV 04/13/21 00:09 .Q24H PRN CHEST PAIN Protocol 5 MCG/MIN Discontinued Medications Generic Name Dose Route Start Last Admin Trade Name Freq PRN Reason Stop Dose Admin Albuterol/Ipratropium 3 ml 03/13/21 22:47 03/13/21 22:49 Duoneb 0.5-3 Mg/3 Ml Neb IH 03/13/21 22:48 3 ml STAT ONE Administration Albuterol/Ipratropium Confirm 03/13/21 22:46 Duoneb 0.5-3 Mg/3 Ml Neb Administered 03/13/21 22:47 Dose 3 ml IH .STK-MED ONE Aspirin 324 mg 03/13/21 22:53 03/13/21 23:44 Baby Aspirin 81 Mg Chew PO 03/13/21 22:54 324 mg STAT ONE Administration Aspirin Confirm 03/13/21 23:30 Baby Aspirin 81 Mg Chew Administered 03/13/21 23:31 Dose 324 mg .ROUTE .STK-MED ONE Furosemide 60 mg 03/13/21 22:52 03/13/21 23:44 Lasix 40 Mg/4 Ml IV 03/13/21 22:53 60 mg STAT ONE Administration Furosemide Confirm 03/13/21 23:30 Lasix 40 Mg/4 Ml Administered 03/13/21 23:31 Dose 80 mg .ROUTE .STK-MED ONE Levofloxacin/Dextrose 750 mg in 150 mls @ 100 mls/hr 03/13/21 22:53 03/13/21 23:50 Levofloxacin 750mg/150ml D5w IV 03/14/21 00:22 100 mls/hr STAT STA 100 mls/hr Administration Levofloxacin/Dextrose Confirm 03/13/21 23:30 Levofloxacin 750mg/150ml D5w Administered 03/13/21 23:31 Dose 750 mg in 150 mls @ ud IV .STK-MED ONE Methylprednisolone Sodium Succinate 125 mg 03/13/21 22:52 03/13/21 23:44 Solu-Medrol 125 Mg IV 03/13/21 22:53 125 mg STAT ONE Administration Methylprednisolone Sodium Succinate Confirm 03/13/21 23:30 Solu-Medrol 125 Mg Administered 03/13/21 23:31 Dose 125 mg .ROUTE .STK-MED ONE Nitroglycerin 1 gm 03/13/21 22:52 03/13/21 23:41 Nitro-Bid 2% Ud Packets TOP 03/13/21 22:53 1 gm STAT ONE Administration Nitroglycerin Confirm 03/13/21 23:30 Nitro-Bid 2% Ud Packets Administered 03/13/21 23:31 Dose 1 gm .ROUTE .STK-MED ONE Ropinirole HCl 2 mg 03/14/21 00:57 03/14/21 01:06 Requip 2mg Tab PO 03/14/21 00:58 2 mg ONCE ONE Administration Sterile Water Confirm 03/13/21 23:30 Sterile H2o 10 Ml Administered 03/13/21 23:31 Dose 10 ml IJ .STK-MED ONE Lab/Rad Data: Laboratory Result Diagrams 03/13/21 23:00 03/13/21 23:00 Laboratory Results 03/13/21 03/13/21 03/13/21 Range/Units 23:05 23:00 23:00 WBC (4.0-10.5) K/mm3 RBC (4.1-5.4) M/mm3 Hgb (12.0-16.0) gm/dl Hct (35-47) % MCV (78-100) fl MCH (26-32) pg MCHC (32-36) g/dl RDW (11.5-14.0) % Plt Count (150-450) K/mm3 MPV (7.5-11.0) fl Gran % (36.0-66.0) % Eos # (Auto) (0-0.5) Absolute Lymphs (auto) (1.0-4.6) Absolute Monos (auto) (0.0-1.3) Lymphocytes % (24.0-44.0) % Monocytes % (0.0-12.0) % Eosinophils % (0.00-5.0) % Basophils % (0.0-0.4) % Absolute Granulocytes (1.4-6.9) Basophils # (0-0.4) Sodium 142 (137-145) mmol/L Potassium 3.8 (3.5-5.1) mmol/L Chloride 100 (98-107) mmol/L Carbon Dioxide 33 H (22-30) mmol/L Anion Gap 13.0 (5-15) MEQ/L BUN 18 H (7-17) mg/dL Creatinine 0.66 (0.52-1.04) mg/dL Estimated GFR > 60.0 ML/MIN Glucose 110 H (74-106) mg/dL Lactic Acid 1.3 (0.4-2.0) Calcium 9.6 (8.4-10.2) mg/dL Magnesium 2.2 (1.6-2.3) mg/dL Total Bilirubin 0.20 (0.2-1.3) mg/dL AST 23 (14-36) U/L ALT 18 (0-35) U/L Alkaline Phosphatase 58 (38-126) U/L Troponin I < 0.012 (0.000-0.034) ng/mL NT-Pro-B Natriuret Pep 264 (0-900) pg/mL Serum Total Protein 7.6 (6.3-8.2) g/dL Albumin 4.2 (3.5-5.0) g/dL 03/13/21 Range/Units 23:00 WBC 7.7 (4.0-10.5) K/mm3 RBC 5.48 H (4.1-5.4) M/mm3 Hgb 16.3 H (12.0-16.0) gm/dl Hct 51.9 H (35-47) % MCV 94.7 (78-100) fl MCH 29.7 (26-32) pg MCHC 31.4 L (32-36) g/dl RDW 14.2 H (11.5-14.0) % Plt Count 221 (150-450) K/mm3 MPV 10.5 (7.5-11.0) fl Gran % 64.2 (36.0-66.0) % Eos # (Auto) 0.15 (0-0.5) Absolute Lymphs (auto) 2.01 (1.0-4.6) Absolute Monos (auto) 0.60 (0.0-1.3) Lymphocytes % 26.0 (24.0-44.0) % Monocytes % 7.8 (0.0-12.0) % Eosinophils % 1.9 (0.00-5.0) % Basophils % 0.1 (0.0-0.4) % Absolute Granulocytes 4.95 (1.4-6.9) Basophils # 0.01 (0-0.4) Sodium (137-145) mmol/L Potassium (3.5-5.1) mmol/L Chloride (98-107) mmol/L Carbon Dioxide (22-30) mmol/L Anion Gap (5-15) MEQ/L BUN (7-17) mg/dL Creatinine (0.52-1.04) mg/dL Estimated GFR ML/MIN Glucose (74-106) mg/dL Lactic Acid (0.4-2.0) Calcium (8.4-10.2) mg/dL Magnesium (1.6-2.3) mg/dL Total Bilirubin (0.2-1.3) mg/dL AST (14-36) U/L ALT (0-35) U/L Alkaline Phosphatase (38-126) U/L Troponin I (0.000-0.034) ng/mL NT-Pro-B Natriuret Pep (0-900) pg/mL Serum Total Protein (6.3-8.2) g/dL Albumin (3.5-5.0) g/dL - Progress Progress: improved, re-examined Air Movement: fair Progress Note: 03/14/21 00:40 65 years old is evaluated for increasing shortness of breath and bilateral lower extremity swelling. Patient was wheezing and crackling all over on presentation with blood pressure in 200s. She is given DuoNeb, Solu-Medrol, aspirin and 60 of IV Lasix. Nitropaste placed. Her breathing is better but still have elevated pressure. I have ordered nitro drip but her blood pressure started to improve and currently in 160s, will hold off on it. EKG did not show any acute ST elevation and negative initial troponins. Normal white count, grossly unremarkable chemistries. Chest x-ray showed right-sided infiltrative process and given a dose of Levaquin as well. Although her BNP is normal but patient clinically seems to be in CHF exacerbation as well. Discussed with with and patient is being admitted. Blood Culture(s) Obtained: Yes Antibiotics given: Yes Discussed with : Asha Will see patient in: hospital (full admit) Counseled pt/family regarding: drug and/or alcohol abuse, lab results, diagnosis, rad results - Departure Departure Disposition: In-patient Admission Clinical Impression: COPD exacerbation, Uncontrolled hypertension CHF exacerbation Qualifiers: Heart failure type: unspecified Qualified Code(s): I50.9 - Heart failure, unspecified Condition: Stable Critical Care Time: Yes Critical Care Time(excluding separately billable procedures): Critical 30-74 mins Referrals: ARSH LINDER MD [Primary Care Provider] - Instructions: Heart Failure, Chronic Obstructive Pulmonary Disease
[2021-03-13 23:16] LABS: Absolute Neutrophil Ct (ANC) 4.95 (1.4-6.9); BASOPHIL % 0.1 % (0.0-0.4); Basophil (Absolute #) 0.01 (0-0.4); Eosinophil % 1.9 % (0.00-5.0); Eosinophil (Absolute #) 0.15 (0-0.5); Hematocrit 51.9 % (35-47); Hemoglobin 16.3 gm/dl (12.0-16.0); Lymphocyte (Absolute #) 2.01 (1.0-4.6); Mean Cell Volume 94.7 fl (78-100); Mean Corpuscular Hemoglobin 29.7 pg (26-32); Mean Corpuscular Hgb Concent. 31.4 g/dl (32-36); Mean Platelet Volume 10.5 fl (7.5-11.0); Monocytes % 7.8 % (0.0-12.0); Neutrophil % 64.2 % (36.0-66.0); Platelet Count 221 K/mm3 (150-450); Red Blood Count 5.48 M/mm3 (4.1-5.4); Red Cell Distribution Width 14.2 % (11.5-14.0); White Blood Count 7.7 K/mm3 (4.0-10.5)
[2021-03-13] MEDS ORDERED: Lasix 40 MG/4 ML ONE (23:30)
[2021-03-13] MEDS ORDERED: solu-MEDROL ONE (23:30)
[2021-03-13] MEDS ORDERED: BABY ASPIRIN 81 MG CHEW ONE (23:30)
[2021-03-13] MEDS ORDERED: LEVOFLOXACIN 750MG/150ML D5W 750 MG/150 ML BAG IV ONE (23:30)
[2021-03-13] MEDS ORDERED: Sterile H2O 10 ml IJ ONE (23:30)
[2021-03-13] MEDS ORDERED: NITRO-BID 2% UD PACKETS ONE (23:30)
[2021-03-14] MEDS ORDERED: Ntg 0.2MG/Ml in D5W GLASS*** 250 ML IV PRN (00:10)
[2021-03-14 00:13] LABS: ALBUMIN 4.2 g/dL (3.5-5.0); ALKALINE PHOSPHATASE 58 U/L (38-126); BLOOD UREA NITROGEN 18 mg/dL (7-17); CHLORIDE 100 mmol/L (98-107); Calcium 9.6 mg/dL (8.4-10.2); Carbon Dioxide 33 mmol/L (22-30); Creatinine 1 0.66 mg/dL (0.52-1.04); EST GLOMERULAR FILTRATION RATE > 60.0 ML/MIN; Glucose 110 mg/dL (74-106); MAGNESIUM 2.2 mg/dL (1.6-2.3); NT PRO BNP 264 pg/mL (0-900); Potassium 3.8 mmol/L (3.5-5.1); SGOT/AST 23 U/L (14-36); SGPT/ALT 18 U/L (0-35); SODIUM 142 mmol/L (137-145); Total Protein 7.6 g/dL (6.3-8.2)
[2021-03-14] MEDS ORDERED: REQUIP 2MG TAB PO ONE (00:57)
[2021-03-14] MEDS ORDERED: TYLENOL 325 MG PO STA (03:12)
[2021-03-14] MEDS ORDERED: TYLENOL 325 MG ONE (03:13)
[2021-03-14] MEDS ORDERED: HUMALOG SQ PRN (03:27)
[2021-03-14] MEDS ORDERED: solu-MEDROL IV SCH ×2 (03:27→12:00)
[2021-03-14] MEDS ORDERED: Sterile H2O 10 ml IJ ONE (04:36)
[2021-03-14] MEDS: DUONEB 0.5-3 MG/3 ml Neb IH SCH ×4 (05:09→19:45)
[2021-03-14 05:44] LABS: Absolute Neutrophil Ct (ANC) 7.89 (1.4-6.9); BASOPHIL % 0.1 % (0.0-0.4); Basophil (Absolute #) 0.01 (0-0.4); Eosinophil % 0.1 % (0.00-5.0); Eosinophil (Absolute #) 0.01 (0-0.5); Hemoglobin 14.3 gm/dl (12.0-16.0); Lymphocyte (Absolute #) 0.75 (1.0-4.6); Lymphocytes % 8.6 % (24.0-44.0); Mean Cell Volume 95.2 fl (78-100); Mean Corpuscular Hemoglobin 29.6 pg (26-32); Mean Corpuscular Hgb Concent. 31.1 g/dl (32-36); Mean Platelet Volume 10.8 fl (7.5-11.0); Monocytes % 1.1 % (0.0-12.0); Neutrophil % 90.1 % (36.0-66.0); Platelet Count 221 K/mm3 (150-450); Red Blood Count 4.83 M/mm3 (4.1-5.4); Red Cell Distribution Width 14.2 % (11.5-14.0); White Blood Count 8.8 K/mm3 (4.0-10.5)
[2021-03-14 06:26] LABS: ALKALINE PHOSPHATASE 57 U/L (38-126); ANION GAP 16.6 MEQ/L (5-15); BILIRUBIN,TOTAL < 0.10 mg/dL (0.2-1.3); BLOOD UREA NITROGEN 19 mg/dL (7-17); CHLORIDE 96 mmol/L (98-107); Calcium 9.2 mg/dL (8.4-10.2); Carbon Dioxide 32 mmol/L (22-30); Creatinine 1 0.82 mg/dL (0.52-1.04); EST GLOMERULAR FILTRATION RATE > 60.0 ML/MIN; Glucose 341 mg/dL (74-106); Potassium 4.1 mmol/L (3.5-5.1); SGOT/AST 25 U/L (14-36); SODIUM 140 mmol/L (137-145); Total Protein 6.9 g/dL (6.3-8.2)
[2021-03-14 06:32] LABS: SGPT/ALT 25 U/L (0-35)
--- NOTE | 2021-03-14 09:17 | XRAY ---
Indication: Cough. Short of breath. COPD. Comparison: November 01, 2020. Portable chest again demonstrates a few tiny calcified granulomas and minimal left base subsegmental atelectasis/scarring. Remaining heart, lungs, and bony thorax normal.
[2021-03-14] MEDS: REQUIP 2MG TAB PO SCH ×3 (09:43→22:18)
[2021-03-14] MEDS: Lasix 40 MG PO SCH (09:44)
[2021-03-14] MEDS: PROTONIX 40 MG IV IV SCH (09:44)
[2021-03-14] MEDS: TYLENOL 325 MG PO PRN ×2 (09:50→15:18)
[2021-03-14] MEDS ORDERED: ROPINIROLE HCL 2 MG PO SCH (10:00)
[2021-03-14] MEDS ORDERED: solu-MEDROL 80 MG, Sterile H2O 10 ml 2 ML IV SCH ×2 (12:00)
[2021-03-14] MEDS ORDERED: solu-MEDROL 40 MG, Sterile H2O 10 ml 2 ML IV SCH ×2 (12:30)
--- NOTE | 2021-03-14 19:59 | PCM.HP ---
History of Present Illness - Chief Complaint Chief Complaint: shortness of breath for 2 days History of Present Illness: is a 65 year old female.with history of chronic respiratory failure on 5 L oxygen secondary to COPD, tobacco abuse, congestive heart failure, hypertension, restless leg syndrome presented in the ER with chief complaint of worsening shortness of breath for the last couple of days. Patient reports initially shortness of breath with activity and since morning having shortness of breath at resting. Also report associated increased cough productive of clear to yellow sputum. Patient reports having bilateral lower extremities swelling chronically which is worsening and seems like she is gaining weight. Does have some chest discomfort but no palpitations or pain. Denies any history of DVT/pulmonary embolism. No history of CAD. - Review of Systems Constitutional: No Fever, No Chills Eyes: No Symptoms Ears, Nose, & Throat: No Symptoms Respiratory: Orthopnea, Short Of Breath, Wheezing, No Cough Cardiac: Edema, No Chest Pain, No Syncope Abdominal/Gastrointestinal: No Abdominal Pain, No Nausea, No Vomiting, No Diarrhea Genitourinary Symptoms: No Dysuria Musculoskeletal: No Back Pain, No Neck Pain Skin: No Rash Neurological: No Dizziness, No Focal Weakness, No Sensory Changes Psychological: No Symptoms Endocrine: No Symptoms Hematologic/Lymphatic: No Symptoms Immunological/Allergic: No Symptoms Medications & Allergies Home Medications: Home Medication List Ropinirole HCl [Requip] 2 mg PO TID 03/05/14 [History Confirmed 03/14/21] Furosemide 40 mg [Lasix 40 MG] 40 mg PO DAILY #30 tablet 10/08/20 [Rx Confirmed 03/14/21] Allergies/Adverse Reactions: Allergies Allergy/AdvReac Type Severity Reaction Status Date / Time codeine Allergy Intermediate rash, Verified 03/13/21 22:43 itching cefaclor [From Ceclor] Allergy Mild Rash Verified 03/13/21 22:43 Penicillins Allergy Mild Swelling Verified 03/13/21 22:43 bacitracin AdvReac Mild Itching Verified 03/13/21 22:43 [From Neosporin ([id number])] bacitracin zinc AdvReac Mild Itching Verified 03/13/21 22:43 [From Neosporin ([id number])] levofloxacin [From Levaquin] AdvReac Mild itch Verified 03/13/21 22:43 neomycin sulfate AdvReac Mild itch Verified 03/13/21 22:43 [From Neosporin ([id number])] polymyxin B AdvReac Mild Itching Verified 03/13/21 22:43 [From Neosporin ([id number])] - Past Medical History Past Medical History: Yes Neurological History: No Pertinent History ENT History: No Pertinent History Cardiac History: Congestive Heart Failure, Hypertension, Peripheral Vascular Disease Respiratory History: COPD, Emphysema Endocrine Medical History: No Pertinent History Musculoskelatal History: Arthritis, Fibromyalgia GI Medical History: No Pertinent History History: Other Pyscho-Social History: No Pertinent History Reproductive Disorders: No Pertinent History Comment: Stress Incontinence - Female History Hx Last Menstrual Period: POST Are you now?: No - Past Surgical History Past Surgical History: Yes Neuro Surgical History: No Pertinent History Cardiac History: No Pertinent History Respiratory Surgery: No Pertinent History GI Surgical History: Cholecystectomy Genitourinary Surgical Hx: No Pertinent History Musculskeletal Surgical Hx: No Pertinent History Female Surgical History: No Pertinent History, Tubal Ligation - Social History Smoking Status: Current every day smoker How long have you smoked: 25 years Exposure to second hand smoke: Yes Alcohol: Rarely Drug Use: none - Physical Exam Vital Signs: Vital Signs - 24 hr Temp Pulse Resp BP Pulse Ox 03/14/21 19:45 93 H 20 92 L 03/14/21 16:00 97.6 F 96 H 20 158/67 91 L 03/14/21 15:17 104 H 28 H 92 L 03/14/21 12:00 97.2 F 90 20 166/72 94 L 03/14/21 11:30 75 22 91 L 03/14/21 08:00 97.2 F 99 H 18 178/76 91 L 03/14/21 05:11 91 H 20 94 L 03/14/21 03:30 98.0 F 91 H 22 145/67 94 L 03/14/21 02:40 78 202/98 95 03/14/21 02:05 98 03/14/21 00:11 96 H 22 228/150 96 03/13/21 22:54 24 96 03/13/21 22:51 110 H 35 H 98 03/13/21 22:43 98.4 F 95 H 24 215/103 96 General Appearance: no apparent distress, alert Neurologic Exam: alert, 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, cooperative, normal mood/affect, nml cerebellar function, nml station & gait, sensation nml, No motor deficits Eye Exam: PERRL/EOMI, eyes nml inspection Ears, Nose, Throat Exam: normal ENT inspection, TMs normal, pharynx normal, moist mucous membranes Neck Exam: normal inspection, non-tender, supple, full range of motion Respiratory Exam: crackles/rales, rhonchi, wheezing, No respiratory distress Cardiovascular Exam: regular rate/rhythm, normal heart sounds, normal peripheral pulses Gastrointestinal/Abdomen Exam: soft, normal bowel sounds, No tenderness, No mass Back Exam: normal inspection, normal range of motion, No CVA tenderness, No vertebral tenderness Extremity Exam: normal inspection, normal range of motion, pelvis stable Skin Exam: normal color, warm, dry, No rash Lymphatic Exam: No adenopathy Results - Labs Lab/Micro Results: Lab Results-Last 24 Hours 03/13/21 03/13/21 03/13/21 Range/Units 23:00 23:00 23:00 WBC 7.7 (4.0-10.5) K/mm3 RBC 5.48 H (4.1-5.4) M/mm3 Hgb 16.3 H (12.0-16.0) gm/dl Hct 51.9 H (35-47) % MCV 94.7 (78-100) fl MCH 29.7 (26-32) pg MCHC 31.4 L (32-36) g/dl RDW 14.2 H (11.5-14.0) % Plt Count 221 (150-450) K/mm3 MPV 10.5 (7.5-11.0) fl Gran % 64.2 (36.0-66.0) % Eos # (Auto) 0.15 (0-0.5) Absolute Lymphs (auto) 2.01 (1.0-4.6) Absolute Monos (auto) 0.60 (0.0-1.3) Lymphocytes % 26.0 (24.0-44.0) % Monocytes % 7.8 (0.0-12.0) % Eosinophils % 1.9 (0.00-5.0) % Basophils % 0.1 (0.0-0.4) % Absolute Granulocytes 4.95 (1.4-6.9) Basophils # 0.01 (0-0.4) Sodium 142 (137-145) mmol/L Potassium 3.8 (3.5-5.1) mmol/L Chloride 100 (98-107) mmol/L Carbon Dioxide 33 H (22-30) mmol/L Anion Gap 13.0 (5-15) MEQ/L BUN 18 H (7-17) mg/dL Creatinine 0.66 (0.52-1.04) mg/dL Estimated GFR > 60.0 ML/MIN Glucose 110 H (74-106) mg/dL Lactic Acid (0.4-2.0) Calcium 9.6 (8.4-10.2) mg/dL Magnesium 2.2 (1.6-2.3) mg/dL Total Bilirubin 0.20 (0.2-1.3) mg/dL AST 23 (14-36) U/L ALT 18 (0-35) U/L Alkaline Phosphatase 58 (38-126) U/L Troponin I < 0.012 (0.000-0.034) ng/mL NT-Pro-B Natriuret Pep 264 (0-900) pg/mL Serum Total Protein 7.6 (6.3-8.2) g/dL Albumin 4.2 (3.5-5.0) g/dL SARS-CoV-2 (PCR) (NEGATIVE) 03/13/21 03/14/21 03/14/21 Range/Units 23:05 01:09 01:38 WBC (4.0-10.5) K/mm3 RBC (4.1-5.4) M/mm3 Hgb (12.0-16.0) gm/dl Hct (35-47) % MCV (78-100) fl MCH (26-32) pg MCHC (32-36) g/dl RDW (11.5-14.0) % Plt Count (150-450) K/mm3 MPV (7.5-11.0) fl Gran % (36.0-66.0) % Eos # (Auto) (0-0.5) Absolute Lymphs (auto) (1.0-4.6) Absolute Monos (auto) (0.0-1.3) Lymphocytes % (24.0-44.0) % Monocytes % (0.0-12.0) % Eosinophils % (0.00-5.0) % Basophils % (0.0-0.4) % Absolute Granulocytes (1.4-6.9) Basophils # (0-0.4) Sodium (137-145) mmol/L Potassium (3.5-5.1) mmol/L Chloride (98-107) mmol/L Carbon Dioxide (22-30) mmol/L Anion Gap (5-15) MEQ/L BUN (7-17) mg/dL Creatinine (0.52-1.04) mg/dL Estimated GFR ML/MIN Glucose (74-106) mg/dL Lactic Acid 1.3 (0.4-2.0) Calcium (8.4-10.2) mg/dL Magnesium (1.6-2.3) mg/dL Total Bilirubin (0.2-1.3) mg/dL AST (14-36) U/L ALT (0-35) U/L Alkaline Phosphatase (38-126) U/L Troponin I < 0.012 (0.000-0.034) ng/mL NT-Pro-B Natriuret Pep (0-900) pg/mL Serum Total Protein (6.3-8.2) g/dL Albumin (3.5-5.0) g/dL SARS-CoV-2 (PCR) NEGATIVE (NEGATIVE) 03/14/21 03/14/21 03/14/21 Range/Units 05:15 05:15 05:15 WBC 8.8 (4.0-10.5) K/mm3 RBC 4.83 (4.1-5.4) M/mm3 Hgb 14.3 (12.0-16.0) gm/dl Hct 46.0 (35-47) % MCV 95.2 (78-100) fl MCH 29.6 (26-32) pg MCHC 31.1 L (32-36) g/dl RDW 14.2 H (11.5-14.0) % Plt Count 221 (150-450) K/mm3 MPV 10.8 (7.5-11.0) fl Gran % 90.1 H (36.0-66.0) % Eos # (Auto) 0.01 (0-0.5) Absolute Lymphs (auto) 0.75 L (1.0-4.6) Absolute Monos (auto) 0.10 (0.0-1.3) Lymphocytes % 8.6 L (24.0-44.0) % Monocytes % 1.1 (0.0-12.0) % Eosinophils % 0.1 (0.00-5.0) % Basophils % 0.1 (0.0-0.4) % Absolute Granulocytes 7.89 H (1.4-6.9) Basophils # 0.01 (0-0.4) Sodium 140 (137-145) mmol/L Potassium 4.1 (3.5-5.1) mmol/L Chloride 96 L (98-107) mmol/L Carbon Dioxide 32 H (22-30) mmol/L Anion Gap 16.6 H (5-15) MEQ/L BUN 19 H (7-17) mg/dL Creatinine 0.82 (0.52-1.04) mg/dL Estimated GFR > 60.0 ML/MIN Glucose 341 H (74-106) mg/dL Lactic Acid (0.4-2.0) Calcium 9.2 (8.4-10.2) mg/dL Magnesium (1.6-2.3) mg/dL Total Bilirubin < 0.10 L (0.2-1.3) mg/dL AST 25 (14-36) U/L ALT 25 (0-35) U/L Alkaline Phosphatase 57 (38-126) U/L Troponin I < 0.012 (0.000-0.034) ng/mL NT-Pro-B Natriuret Pep (0-900) pg/mL Serum Total Protein 6.9 (6.3-8.2) g/dL Albumin 4.0 (3.5-5.0) g/dL SARS-CoV-2 (PCR) (NEGATIVE) 03/14/21 03/14/21 Range/Units 08:05 11:15 WBC (4.0-10.5) K/mm3 RBC (4.1-5.4) M/mm3 Hgb (12.0-16.0) gm/dl Hct (35-47) % MCV (78-100) fl MCH (26-32) pg MCHC (32-36) g/dl RDW (11.5-14.0) % Plt Count (150-450) K/mm3 MPV (7.5-11.0) fl Gran % (36.0-66.0) % Eos # (Auto) (0-0.5) Absolute Lymphs (auto) (1.0-4.6) Absolute Monos (auto) (0.0-1.3) Lymphocytes % (24.0-44.0) % Monocytes % (0.0-12.0) % Eosinophils % (0.00-5.0) % Basophils % (0.0-0.4) % Absolute Granulocytes (1.4-6.9) Basophils # (0-0.4) Sodium (137-145) mmol/L Potassium (3.5-5.1) mmol/L Chloride (98-107) mmol/L Carbon Dioxide (22-30) mmol/L Anion Gap (5-15) MEQ/L BUN (7-17) mg/dL Creatinine (0.52-1.04) mg/dL Estimated GFR ML/MIN Glucose (74-106) mg/dL Lactic Acid (0.4-2.0) Calcium (8.4-10.2) mg/dL Magnesium (1.6-2.3) mg/dL Total Bilirubin (0.2-1.3) mg/dL AST (14-36) U/L ALT (0-35) U/L Alkaline Phosphatase (38-126) U/L Troponin I < 0.012 < 0.012 (0.000-0.034) ng/mL NT-Pro-B Natriuret Pep (0-900) pg/mL Serum Total Protein (6.3-8.2) g/dL Albumin (3.5-5.0) g/dL SARS-CoV-2 (PCR) (NEGATIVE) - Radiology Impressions Radiology Exams & Impressions: Radiology Procedures Category Date Time Status CHEST 1 VIEW (PORTABLE) Stat Exams 03/13/21 22:52 Completed - Other Procedures and Tests Respiratory Therapy 03/13/21 22:51 Respiratory Therapy Assessment DAILY 03/14/21 03:27 Oxygen Nasal Cannula 5 lpm Assessment/Plan (1) COPD exacerbation Current Visit: Yes Status: Acute Assessment & Plan: Last Vital Signs Temp 97.6 F 03/14/21 16:00 Pulse 93 H 03/14/21 19:45 Resp 20 03/14/21 19:45 BP 158/67 03/14/21 16:00 Pulse Ox 92 L 03/14/21 19:45 Allergies codeine Allergy (Intermediate, Verified 03/13/21 22:43) rash, itching cefaclor [From Ceclor] Allergy (Mild, Verified 03/13/21 22:43) Rash Penicillins Allergy (Mild, Verified 03/13/21 22:43) Swelling bacitracin [From Neosporin ([id number])] Adverse Reaction (Mild, Verified 03/13/21 22:43) Itching bacitracin zinc [From Neosporin ([id number]-[id number]-[id number])] Adverse Reaction (Mild, Verified 03/13/21 22:43) Itching levofloxacin [From Levaquin] Adverse Reaction (Mild, Verified 03/13/21 22:43) itch neomycin sulfate [From Neosporin ([id number])] Adverse Reaction (Mild, Verified 03/13/21 22:43) itch polymyxin B [From Neosporin ([id number])] Adverse Reaction (Mild, Verified 03/13/21 22:43) Itching Active Medications Acetaminophen (Tylenol 325 Mg) 650 mg PO Q4H PRN PRN PRN Reason: PAIN AND/OR FEVER Stop: 04/13/21 03:26 Last Admin: 03/14/21 15:18 Dose: 650 mg Documented by: Albuterol/Ipratropium (Duoneb 0.5-3 Mg/3 Ml Neb) 3 ml IH QIDRT [facility] Stop: 04/13/21 06:59 Last Admin: 03/14/21 19:45 Dose: 3 ml Documented by: Furosemide (Lasix 40 Mg) 40 mg PO DAILY [facility] Stop: 04/13/21 09:59 Last Admin: 03/14/21 09:44 Dose: 40 mg Documented by: Levofloxacin/Dextrose (Levofloxacin 750mg/150ml D5w) 750 mg in 150 mls @ 100 mls/hr IV QPM [facility] Stop: 04/13/21 21:59 Insulin Human Lispro (Humalog) 0 unit SQ UD PRN PRN Reason: HYPERGLYCEMIA Stop: 04/13/21 03:26 Methylprednisolone Sodium Succinate (Solu-Medrol 40 Mg) 40 mg IV Q8HT [facility] Stop: 04/13/21 21:59 Pantoprazole Sodium (Protonix 40 Mg Iv) 40 mg IV Q24H10 [facility] Stop: 04/13/21 09:59 Last Admin: 03/14/21 09:44 Dose: 40 mg Documented by: Ropinirole HCl (Requip 2mg Tab) 2 mg PO TID [facility] Stop: 04/13/21 09:59 Last Admin: 03/14/21 15:18 Dose: 2 mg Documented by: Intake & Output 03/14/21 03/15/21 11:59 11:59 Intake Total 240 480 Output Total 300 700 Balance -60 -220 Weight 104 kg Orders 03/14/21 03:22 Place in Observation ROUTINE 03/14/21 04:02 Web Ui Developer/Discharge Plan ROUTINE 03/14/21 05:11 Pulse Oximetry .spot check 03/14/21 07:00 Albuterol/Ipratropium 3ml Neb* [DUONEB 0.5-3 MG/3 ml Neb] 3 ml IH QIDRT 03/14/21 10:00 Furosemide 40 mg [Lasix 40 MG] 40 mg PO DAILY Ropinirole 2Mg [Requip 2Mg Tab] 2 mg PO TID 03/14/21 22:00 Methylprednisolone Sod Suc 40M [solu-MEDROL 40 MG] 40 mg IV Q8HT Lab Tests 03/13/21 03/13/21 03/13/21 23:00 23:00 23:00 WBC 7.7 RBC 5.48 H Hgb 16.3 H Hct 51.9 H MCV 94.7 MCH 29.7 MCHC 31.4 L RDW 14.2 H Plt Count 221 MPV 10.5 Gran % 64.2 Eos # (Auto) 0.15 Absolute Lymphs (auto) 2.01 Absolute Monos (auto) 0.60 Lymphocytes % 26.0 Monocytes % 7.8 Eosinophils % 1.9 Basophils % 0.1 Absolute Granulocytes 4.95 Basophils # 0.01 Sodium 142 Potassium 3.8 Chloride 100 Carbon Dioxide 33 H Anion Gap 13.0 BUN 18 H Creatinine 0.66 Estimated GFR > 60.0 Glucose 110 H Lactic Acid Calcium 9.6 Magnesium 2.2 Total Bilirubin 0.20 AST 23 ALT 18 Alkaline Phosphatase 58 Troponin I < 0.012 NT-Pro-B Natriuret Pep 264 Serum Total Protein 7.6 Albumin 4.2 SARS-CoV-2 (PCR) 03/13/21 03/14/21 03/14/21 23:05 01:09 01:38 WBC RBC Hgb Hct MCV MCH MCHC RDW Plt Count MPV Gran % Eos # (Auto) Absolute Lymphs (auto) Absolute Monos (auto) Lymphocytes % Monocytes % Eosinophils % Basophils % Absolute Granulocytes Basophils # Sodium Potassium Chloride Carbon Dioxide Anion Gap BUN Creatinine Estimated GFR Glucose Lactic Acid 1.3 Calcium Magnesium Total Bilirubin AST ALT Alkaline Phosphatase Troponin I < 0.012 NT-Pro-B Natriuret Pep Serum Total Protein Albumin SARS-CoV-2 (PCR) NEGATIVE 03/14/21 03/14/21 03/14/21 05:15 05:15 05:15 WBC 8.8 RBC 4.83 Hgb 14.3 Hct 46.0 MCV 95.2 MCH 29.6 MCHC 31.1 L RDW 14.2 H Plt Count 221 MPV 10.8 Gran % 90.1 H Eos # (Auto) 0.01 Absolute Lymphs (auto) 0.75 L Absolute Monos (auto) 0.10 Lymphocytes % 8.6 L Monocytes % 1.1 Eosinophils % 0.1 Basophils % 0.1 Absolute Granulocytes 7.89 H Basophils # 0.01 Sodium 140 Potassium 4.1 Chloride 96 L Carbon Dioxide 32 H Anion Gap 16.6 H BUN 19 H Creatinine 0.82 Estimated GFR > 60.0 Glucose 341 H Lactic Acid Calcium 9.2 Magnesium Total Bilirubin < 0.10 L AST 25 ALT 25 Alkaline Phosphatase 57 Troponin I < 0.012 NT-Pro-B Natriuret Pep Serum Total Protein 6.9 Albumin 4.0 SARS-CoV-2 (PCR) 03/14/21 03/14/21 08:05 11:15 WBC RBC Hgb Hct MCV MCH MCHC RDW Plt Count MPV Gran % Eos # (Auto) Absolute Lymphs (auto) Absolute Monos (auto) Lymphocytes % Monocytes % Eosinophils % Basophils % Absolute Granulocytes Basophils # Sodium Potassium Chloride Carbon Dioxide Anion Gap BUN Creatinine Estimated GFR Glucose Lactic Acid Calcium Magnesium Total Bilirubin AST ALT Alkaline Phosphatase Troponin I < 0.012 < 0.012 NT-Pro-B Natriuret Pep Serum Total Protein Albumin SARS-CoV-2 (PCR) Code(s): J44.1 - CHRONIC OBSTRUCTIVE PULMONARY DISEASE W (ACUTE) EXACERBATION (2) CHF exacerbation Current Visit: Yes Status: Acute Qualifiers: Heart failure type: combined systolic and diastolic Qualified Code(s): I50.43 - Acute on chronic combined systolic (congestive) and diastolic (congestive) heart failure Assessment & Plan: Chief Complaint Diagnosis COPD EXAC, CHF EXAC, UNCONTROLLED HTN Allergies Allergy/AdvReac Type Severity Reaction Status Date / Time codeine Allergy Intermediate rash, Verified 03/13/21 22:43 itching cefaclor [From Ceclor] Allergy Mild Rash Verified 03/13/21 22:43 Penicillins Allergy Mild Swelling Verified 03/13/21 22:43 bacitracin AdvReac Mild Itching Verified 03/13/21 22:43 [From Neosporin (eti-skt-[id number])] bacitracin zinc AdvReac Mild Itching Verified 03/13/21 22:43 [From Neosporin ([id number]-[id number])] levofloxacin [From Levaquin] AdvReac Mild itch Verified 03/13/21 22:43 neomycin sulfate AdvReac Mild itch Verified 03/13/21 22:43 [From Neosporin (cym-gmi-[id number])] polymyxin B AdvReac Mild Itching Verified 03/13/21 22:43 [From Neosporin ([id number])] Vital Signs (Last 24 hours) Temp Pulse Resp BP Pulse Ox 03/14/21 19:45 93 H 20 92 L 03/14/21 16:00 97.6 F 96 H 20 158/67 91 L 03/14/21 15:17 104 H 28 H 92 L 03/14/21 12:00 97.2 F 90 20 166/72 94 L 03/14/21 11:30 75 22 91 L 03/14/21 08:00 97.2 F 99 H 18 178/76 91 L 03/14/21 05:11 91 H 20 94 L 03/14/21 03:30 98.0 F 91 H 22 145/67 94 L 03/14/21 02:40 78 202/98 95 03/14/21 02:05 98 03/14/21 00:11 96 H 22 228/150 96 03/13/21 22:54 24 96 03/13/21 22:51 110 H 35 H 98 03/13/21 22:43 98.4 F 95 H 24 215/103 96 Current Medications Generic Name Dose Route Start Last Admin Trade Name Crowq PRN Reason Stop Dose Admin Acetaminophen 650 mg 03/14/21 03:27 03/14/21 15:18 Tylenol 325 Mg PO 04/13/21 03:26 650 mg Q4H PRN PRN Administration PAIN AND/OR FEVER Albuterol/Ipratropium 3 ml 03/14/21 07:00 03/14/21 19:45 Duoneb 0.5-3 Mg/3 Ml Neb IH 04/13/21 06:59 3 ml QIDRT [facility] Administration Furosemide 40 mg 03/14/21 10:00 03/14/21 09:44 Lasix 40 Mg PO 04/13/21 09:59 40 mg DAILY [facility] Administration Levofloxacin/Dextrose 750 mg in 150 mls @ 100 mls/hr 03/14/21 22:00 Levofloxacin 750mg/150ml D5w IV 04/13/21 21:59 QPM [facility] Insulin Human Lispro 0 unit 03/14/21 03:27 Humalog SQ 04/13/21 03:26 UD PRN HYPERGLYCEMIA Methylprednisolone Sodium Succinate 40 mg 03/14/21 22:00 Solu-Medrol 40 Mg IV 04/13/21 21:59 Q8HT [facility] Pantoprazole Sodium 40 mg 03/14/21 10:00 03/14/21 09:44 Protonix 40 Mg Iv IV 04/13/21 09:59 40 mg Q24H10 [facility] Administration Ropinirole HCl 2 mg 03/14/21 10:00 03/14/21 15:18 Requip 2mg Tab PO 04/13/21 09:59 2 mg TID [facility] Administration Discontinued Medications Generic Name Dose Route Start Last Admin Trade Name Crowq PRN Reason Stop Dose Admin Acetaminophen 650 mg 03/14/21 03:12 03/14/21 03:13 Tylenol 325 Mg PO 03/14/21 03:13 650 mg STAT STA Administration Acetaminophen Confirm 03/14/21 03:13 Tylenol 325 Mg Administered 03/14/21 03:14 Dose 650 mg .ROUTE .STK-MED ONE Albuterol/Ipratropium 3 ml 03/13/21 22:47 03/13/21 22:49 Duoneb 0.5-3 Mg/3 Ml Neb IH 03/13/21 22:48 3 ml STAT ONE Administration Albuterol/Ipratropium Confirm 03/13/21 22:46 Duoneb 0.5-3 Mg/3 Ml Neb Administered 03/13/21 22:47 Dose 3 ml IH .STK-MED ONE Aspirin 324 mg 03/13/21 22:53 03/13/21 23:44 Baby Aspirin 81 Mg Chew PO 03/13/21 22:54 324 mg STAT ONE Administration Aspirin Confirm 03/13/21 23:30 Baby Aspirin 81 Mg Chew Administered 03/13/21 23:31 Dose 324 mg .ROUTE .STK-MED ONE Methylprednisolone Sodium 0 mg 03/14/21 12:00 03/14/21 12:16 Succinate 80 mg/ Sterile Water IV 04/13/21 11:59 80 mg 2 ml Q6HT [facility] Administration Methylprednisolone Sodium 0 mg 03/14/21 12:30 Succinate 40 mg/ Sterile Water IV 04/13/21 12:29 2 ml Q8H [facility] Furosemide 60 mg 03/13/21 22:52 03/13/21 23:44 Lasix 40 Mg/4 Ml IV 03/13/21 22:53 60 mg STAT ONE Administration Furosemide Confirm 03/13/21 23:30 Lasix 40 Mg/4 Ml Administered 03/13/21 23:31 Dose 80 mg .ROUTE .STK-MED ONE Levofloxacin/Dextrose 750 mg in 150 mls @ 100 mls/hr 03/13/21 22:53 03/14/21 02:25 Levofloxacin 750mg/150ml D5w IV 03/14/21 00:22 Infused STAT STA Infusion Levofloxacin/Dextrose Confirm 03/13/21 23:30 Levofloxacin 750mg/150ml D5w Administered 03/13/21 23:31 Dose 750 mg in 150 mls @ ud IV .STK-MED ONE Nitroglycerin/Dextrose 250 mls @ 1.5 mls/hr 03/14/21 00:10 Ntg 0.2mg/Ml In D5w Glass IV 04/13/21 00:09 .Q24H PRN CHEST PAIN Protocol 5 MCG/MIN Methylprednisolone Sodium Succinate 125 mg 03/13/21 22:52 03/13/21 23:44 Solu-Medrol 125 Mg IV 03/13/21 22:53 125 mg STAT ONE Administration Methylprednisolone Sodium Succinate Confirm 03/13/21 23:30 Solu-Medrol 125 Mg Administered 03/13/21 23:31 Dose 125 mg .ROUTE .STK-MED ONE Methylprednisolone Sodium Succinate 80 mg 03/14/21 03:27 03/14/21 04:43 Solu-Medrol 125 Mg IV 04/13/21 03:26 80 mg Q6H FABRICIO Administration Nitroglycerin 1 gm 03/13/21 22:52 03/13/21 23:41 Nitro-Bid 2% Ud Packets TOP 03/13/21 22:53 1 gm STAT ONE Administration Nitroglycerin Confirm 03/13/21 23:30 Nitro-Bid 2% Ud Packets Administered 03/13/21 23:31 Dose 1 gm .ROUTE .STK-MED ONE Ropinirole HCl 2 mg 03/14/21 00:57 03/14/21 01:06 Requip 2mg Tab PO 03/14/21 00:58 2 mg ONCE ONE Administration Sterile Water Confirm 03/13/21 23:30 Sterile H2o 10 Ml Administered 03/13/21 23:31 Dose 10 ml IJ .STK-MED ONE Sterile Water Confirm 03/14/21 04:36 Sterile H2o 10 Ml Administered 03/14/21 04:37 Dose 10 ml IJ .STK-MED ONE Intake & Output (Last 24 hours) 03/12/21 03/13/21 03/14/21 03/15/21 11:59 11:59 11:59 11:59 Intake Total 240 480 Output Total 300 700 Balance -60 -220 Weight 104 kg Microbiology Results (Last 24 hours) 03/13/21 23:20 Blood Blood Culture Gram Stain - Pending 03/13/21 23:20 Blood Blood Culture - Pending 03/13/21 23:30 Blood Blood Culture Gram Stain - Pending 03/13/21 23:30 Blood Blood Culture - Pending Laboratory Results (Last 24 hours) 03/14/21 03/14/21 03/14/21 11:15 08:05 05:15 WBC RBC Hgb Hct MCV MCH MCHC RDW Plt Count MPV Gran % Eos # (Auto) Absolute Lymphs (auto) Absolute Monos (auto) Lymphocytes % Monocytes % Eosinophils % Basophils % Absolute Granulocytes Basophils # Sodium 140 Potassium 4.1 Chloride 96 L Carbon Dioxide 32 H Anion Gap 16.6 H BUN 19 H Creatinine 0.82 Estimated GFR > 60.0 Glucose 341 H Lactic Acid Calcium 9.2 Magnesium Total Bilirubin < 0.10 L AST 25 ALT 25 Alkaline Phosphatase 57 Troponin I < 0.012 < 0.012 NT-Pro-B Natriuret Pep Serum Total Protein 6.9 Albumin 4.0 SARS-CoV-2 (PCR) 03/14/21 03/14/21 03/14/21 05:15 05:15 01:38 WBC 8.8 RBC 4.83 Hgb 14.3 Hct 46.0 MCV 95.2 MCH 29.6 MCHC 31.1 L RDW 14.2 H Plt Count 221 MPV 10.8 Gran % 90.1 H Eos # (Auto) 0.01 Absolute Lymphs (auto) 0.75 L Absolute Monos (auto) 0.10 Lymphocytes % 8.6 L Monocytes % 1.1 Eosinophils % 0.1 Basophils % 0.1 Absolute Granulocytes 7.89 H Basophils # 0.01 Sodium Potassium Chloride Carbon Dioxide Anion Gap BUN Creatinine Estimated GFR Glucose Lactic Acid Calcium Magnesium Total Bilirubin AST ALT Alkaline Phosphatase Troponin I < 0.012 < 0.012 NT-Pro-B Natriuret Pep Serum Total Protein Albumin SARS-CoV-2 (PCR) 03/14/21 03/13/21 03/13/21 01:09 23:05 23:00 WBC RBC Hgb Hct MCV MCH MCHC RDW Plt Count MPV Gran % Eos # (Auto) Absolute Lymphs (auto) Absolute Monos (auto) Lymphocytes % Monocytes % Eosinophils % Basophils % Absolute Granulocytes Basophils # Sodium Potassium Chloride Carbon Dioxide Anion Gap BUN Creatinine Estimated GFR Glucose Lactic Acid 1.3 Calcium Magnesium Total Bilirubin AST ALT Alkaline Phosphatase Troponin I < 0.012 NT-Pro-B Natriuret Pep Serum Total Protein Albumin SARS-CoV-2 (PCR) NEGATIVE 03/13/21 03/13/21 23:00 23:00 WBC 7.7 RBC 5.48 H Hgb 16.3 H Hct 51.9 H MCV 94.7 MCH 29.7 MCHC 31.4 L RDW 14.2 H Plt Count 221 MPV 10.5 Gran % 64.2 Eos # (Auto) 0.15 Absolute Lymphs (auto) 2.01 Absolute Monos (auto) 0.60 Lymphocytes % 26.0 Monocytes % 7.8 Eosinophils % 1.9 Basophils % 0.1 Absolute Granulocytes 4.95 Basophils # 0.01 Sodium 142 Potassium 3.8 Chloride 100 Carbon Dioxide 33 H Anion Gap 13.0 BUN 18 H Creatinine 0.66 Estimated GFR > 60.0 Glucose 110 H Lactic Acid Calcium 9.6 Magnesium 2.2 Total Bilirubin 0.20 AST 23 ALT 18 Alkaline Phosphatase 58 Troponin I NT-Pro-B Natriuret Pep 264 Serum Total Protein 7.6 Albumin 4.2 SARS-CoV-2 (PCR) Orders (Last 24 hours) Category Date Time Status Bedrest with BRP/BSC ROUTINE Activity 03/14/21 03:27 Active Up With Assistance TOLERATED Activity 03/14/21 03:27 Active Admit as Inpatient ROUTINE Care 03/14/21 03:41 Completed Program Manager Slp STAT Care 03/13/21 22:52 Completed Code Status Order ROUTINE Care 03/14/21 03:27 Active EKG-ER Only STAT Care 03/13/21 22:52 Completed Fall Protocol Q1H Care 03/14/21 03:27 Active IV Care Q6H Care 03/14/21 03:27 Active IV Insertion STAT Care 03/13/21 22:[address] in Observation ROUTINE Care 03/14/21 03:22 Active Ye Chavez, Apply ROUTINE Care 03/14/21 03:27 Active Weight,Daily 0600 Care 03/14/21 03:27 Active Web Ui Developer/Discharge Plan ROUTINE Cons 03/14/21 04:02 Active Heart-Healthy Diet Diet 03/14/21 Breakfast Active CHEST 1 VIEW (PORTABLE) Stat Exams 03/13/21 22:52 Completed BLOOD CULTURE Stat Lab 03/13/21 23:20 Received CBC W DIFF AM.LAB Lab 03/14/21 05:15 Completed CBC W DIFF Stat Lab 03/13/21 23:00 Completed CMP AM.LAB Lab 03/14/21 05:15 Completed CMP Stat Lab 03/13/21 23:00 Completed Lactic Acid Stat Lab 03/13/21 23:05 Completed MAGNESIUM Stat Lab 03/13/21 23:00 Completed NT PRO BNP Stat Lab 03/13/21 23:00 Completed SARS-CoV-2 Xpert Express Routine Lab 03/14/21 01:09 Completed TROPONIN Q3H Lab 03/13/21 23:00 Completed TROPONIN Q3H Lab 03/14/21 01:38 Completed TROPONIN Q3H Lab 03/14/21 05:15 Completed TROPONIN Q3H Lab 03/14/21 08:05 Completed TROPONIN Q3H Lab 03/14/21 11:15 Completed Acetaminophen 325 mg [Tylenol 325 mg] Med 03/14/21 03:13 Discontinued 650 mg .ROUTE .STK-MED ONE Acetaminophen 325 mg [Tylenol 325 mg] Med 03/14/21 03:27 Active 650 mg PO Q4H PRN PRN Acetaminophen 325 mg [Tylenol 325 mg] Med 03/14/21 03:12 Discontinued 650 mg PO STAT STA Albuterol/Ipratropium 3ml Neb* [DUONEB 0.5-3 MG/3 ml Med 03/13/21 22:46 Discontinued Neb] 3 ml IH .STK-MED ONE Albuterol/Ipratropium 3ml Neb* [DUONEB 0.5-3 MG/3 ml Med 03/14/21 07:00 Active Neb] 3 ml IH QIDRT Albuterol/Ipratropium 3ml Neb* [DUONEB 0.5-3 MG/3 ml Med 03/13/21 22:47 Discontinued Neb] 3 ml IH STAT ONE Aspirin 81 gm Chew [Baby Aspirin 81 mg Chew] Med 03/13/21 23:30 Discontinued 324 mg .ROUTE .STK-MED ONE Aspirin 81 gm Chew [Baby Aspirin 81 mg Chew] Med 03/13/21 22:53 Discontinued 324 mg PO STAT ONE Furosemide 40 mg [Lasix 40 MG] Med 03/14/21 10:00 Active 40 mg PO DAILY Furosemide 40 mg/4 ml [Lasix 40 MG/4 ML] Med 03/13/21 22:52 Discontinued 60 mg IV STAT ONE Furosemide 40 mg/4 ml [Lasix 40 MG/4 ML] Med 03/13/21 23:30 Discontinued 80 mg .ROUTE .STK-MED ONE Insulin Lispro [Humalog] Med 03/14/21 03:27 Active See Dose Instructions SQ UD PRN Levofloxacin [Levofloxacin 750Mg/150Ml D5w] Med 03/14/21 22:00 Active 750 mg in 150 ml IV QPM Levofloxacin [Levofloxacin 750Mg/150Ml D5w] Med 03/13/21 22:53 Discontinued 750 mg in 150 ml IV STAT Levofloxacin [Levofloxacin 750Mg/150Ml D5w] Med 03/13/21 23:30 Discontinued 750 mg in 150 ml IV UD Methylprednis Sod Succ 125 mg* [solu-MEDROL] Med 03/13/21 23:30 Discontinued 125 mg .ROUTE .STK-MED ONE Methylprednis Sod Succ 125 mg* [solu-MEDROL] Med 03/13/21 22:52 Discontinued 125 mg IV STAT ONE Methylprednis Sod Succ 125 mg* [solu-MEDROL] Med 03/14/21 03:27 Discontinued 80 mg IV Q6H Methylprednis Sod Succ 125 mg* [solu-MEDROL] 40 mg Med 03/14/21 12:30 Discontinued Water For Injection,Sterile [Sterile H2O 10 ml] 2 ml IV Q8H Methylprednis Sod Succ 125 mg* [solu-MEDROL] 80 mg Med 03/14/21 12:00 Discontinued Water For Injection,Sterile [Sterile H2O 10 ml] 2 ml IV Q6HT Methylprednisolone Sod Suc 40M [solu-MEDROL 40 MG] Med 03/14/21 22:00 Active 40 mg IV Q8HT Nitroglycerin 2 %Ointment [Nitro-Bid 2% Ud Packets Med 03/13/21 23:30 Dis continued *] 1 gm .ROUTE .STK-MED ONE Nitroglycerin 2 %Ointment [Nitro-Bid 2% Ud Packets Med 03/13/21 22:52 Discontinued *] 1 gm TOP STAT ONE Nitroglycerin/D5w 250 ml [Ntg 0.2MG/Ml in D5W GLASS Med 03/14/21 00:10 Discontinued *] 250 ml IV 5 mcg/min Pantoprazole 40 mg [Protonix 40 mg IV] Med 03/14/21 10:00 Active 40 mg IV Q24H10 Ropinirole 2Mg [Requip 2Mg Tab] Med 03/14/21 00:57 Discontinued 2 mg PO ONCE ONE Ropinirole 2Mg [Requip 2Mg Tab] Med 03/14/21 10:00 Active 2 mg PO TID Water For Injection,Sterile [Sterile H2O 10 ml] Med 03/13/21 23:30 Discontinued 10 ml IJ .STK-MED ONE Water For Injection,Sterile [Sterile H2O 10 ml] Med 03/14/21 04:36 Discontinued 10 ml IJ .STK-MED ONE Oxygen Nasal Cannula 5 lpm RT 03/14/21 03:27 Active Pulse Oximetry .spot check RT 03/14/21 05:11 Active RT Screen per Nursing Assess ONCE RT 03/14/21 04:02 Completed Respiratory Therapy Assessment DAILY RT 03/13/21 22:51 Active Smoking Cessation Education ONCE RT 03/14/21 04:02 Completed Transfer Order Routine Transfer 03/14/21 Completed Code(s): I50.9 - HEART FAILURE, UNSPECIFIED (3) Uncontrolled hypertension Current Visit: Yes Status: Acute Code(s): I10 - ESSENTIAL (PRIMARY) HYPERTENSION
[2021-03-14] MEDS ORDERED: LEVOFLOXACIN 750MG/150ML D5W 750 MG/150 ML BAG IV SCH (22:00)
[2021-03-14] MEDS: solu-MEDROL 40 MG IV SCH (22:18)
[2021-03-15] MEDS: TYLENOL 325 MG PO PRN ×2 (00:59→08:55)
[2021-03-15] MEDS: solu-MEDROL 40 MG IV SCH (05:15)
[2021-03-15 07:12] VITALS: BP 147/71
[2021-03-15] MEDS: DUONEB 0.5-3 MG/3 ml Neb IH SCH ×2 (07:35→07:41)
[2021-03-15 07:40] VITALS: PULSE 73; O2SAT 93
--- NOTE | 2021-03-15 08:02 | PCM.DS ---
Discharge Summary Date of Admission: 03/14/21 03:22 Admitting Physician: ARSH LINDER Primary Care Provider: ARSH LINDER Allergies Allergies codeine Allergy (Intermediate, Verified 03/13/21 22:43) rash, itching cefaclor [From Ceclor] Allergy (Mild, Verified 03/13/21 22:43) Rash Penicillins Allergy (Mild, Verified 03/13/21 22:43) Swelling bacitracin [From Neosporin ([id number]-[id number])] Adverse Reaction (Mild, Verified 03/13/21 22:43) Itching bacitracin zinc [From Neosporin (cyf-sns-[id number])] Adverse Reaction (Mild, Verified 03/13/21 22:43) Itching levofloxacin [From Levaquin] Adverse Reaction (Mild, Verified 03/13/21 22:43) itch neomycin sulfate [From Neosporin (luk-bfr-[id number])] Adverse Reaction (Mild, Verified 03/13/21 22:43) itch polymyxin B [From Neosporin ([id number]-[id number]-[id number])] Adverse Reaction (Mild, Verified 03/13/21 22:43) Itching Hospital Summary - Hospital Course Hospital Course: Chief Complaint Diagnosis shortness of breath for 2 days Allergies Allergy/AdvReac Type Severity Reaction Status Date / Time codeine Allergy Intermediate rash, Verified 03/13/21 22:43 itching cefaclor [From Ceclor] Allergy Mild Rash Verified 03/13/21 22:43 Penicillins Allergy Mild Swelling Verified 03/13/21 22:43 bacitracin AdvReac Mild Itching Verified 03/13/21 22:43 [From Neosporin (qph-[id number])] bacitracin zinc AdvReac Mild Itching Verified 03/13/21 22:43 [From Neosporin ([id number])] levofloxacin [From Levaquin] AdvReac Mild itch Verified 03/13/21 22:43 neomycin sulfate AdvReac Mild itch Verified 03/13/21 22:43 [From Neosporin (fuc-gkz-vxoxr)] polymyxin B AdvReac Mild Itching Verified 03/13/21 22:43 [From Neosporin (aed-fli-voacl)] Vital Signs (Last 24 hours) Temp Pulse Resp BP Pulse Ox 03/15/21 07:35 73 22 93 L 03/15/21 07:09 98.0 F 81 20 147/71 92 L 03/15/21 04:00 98.0 F 99 H 18 167/87 95 03/15/21 00:00 97.5 F 100 H 20 133/68 95 03/14/21 20:00 97.7 F 99 H 20 137/66 96 03/14/21 19:45 93 H 20 92 L 03/14/21 16:00 97.6 F 96 H 20 158/67 91 L 03/14/21 15:17 104 H 28 H 92 L 03/14/21 12:00 97.2 F 90 20 166/72 94 L 03/14/21 11:30 75 22 91 L 03/14/21 08:00 97.2 F 99 H 18 178/76 91 L Current Medications Generic Name Dose Route Start Last Admin Trade Name Freq PRN Reason Stop Dose Admin Acetaminophen 650 mg 03/14/21 03:27 03/15/21 00:59 Tylenol 325 Mg PO 04/13/21 03:26 650 mg Q4H PRN PRN Administration PAIN AND/OR FEVER Albuterol/Ipratropium 3 ml 03/14/21 07:00 03/15/21 07:41 Duoneb 0.5-3 Mg/3 Ml Neb IH 04/13/21 06:59 3 ml QIDRT FABRICIO Administration Furosemide 40 mg 03/14/21 10:00 03/14/21 09:44 Lasix 40 Mg PO 04/13/21 09:59 40 mg DAILY FABRICIO Administration Levofloxacin/Dextrose 750 mg in 150 mls @ 100 mls/hr 03/14/21 22:00 03/14/21 22:18 Levofloxacin 750mg/150ml D5w IV 04/13/21 21:59 100 mls/hr QPM FABRICIO Administration Insulin Human Lispro 0 unit 03/14/21 03:27 Humalog SQ 04/13/21 03:26 UD PRN HYPERGLYCEMIA Methylprednisolone Sodium Succinate 40 mg 03/14/21 22:00 03/15/21 05:15 Solu-Medrol 40 Mg IV 04/13/21 21:59 40 mg Q8HT FABRICIO Administration Pantoprazole Sodium 40 mg 03/14/21 10:00 03/14/21 09:44 Protonix 40 Mg Iv IV 04/13/21 09:59 40 mg Q24H10 FABRICIO Administration Ropinirole HCl 2 mg 03/14/21 10:00 03/14/21 22:18 Requip 2mg Tab PO 04/13/21 09:59 2 mg TID FABRICIO Administration Discontinued Medications Generic Name Dose Route Start Last Admin Trade Name Jorge BROWN Reason Stop Dose Admin Acetaminophen 650 mg 03/14/21 03:12 03/14/21 03:13 Tylenol 325 Mg PO 03/14/21 03:13 650 mg STAT STA Administration Acetaminophen Confirm 03/14/21 03:13 Tylenol 325 Mg Administered 03/14/21 03:14 Dose 650 mg .ROUTE .STK-MED ONE Albuterol/Ipratropium 3 ml 03/13/21 22:47 03/13/21 22:49 Duoneb 0.5-3 Mg/3 Ml Neb IH 03/13/21 22:48 3 ml STAT ONE Administration Albuterol/Ipratropium Confirm 03/13/21 22:46 Duoneb 0.5-3 Mg/3 Ml Neb Administered 03/13/21 22:47 Dose 3 ml IH .STK-MED ONE Aspirin 324 mg 03/13/21 22:53 03/13/21 23:44 Baby Aspirin 81 Mg Chew PO 03/13/21 22:54 324 mg STAT ONE Administration Aspirin Confirm 03/13/21 23:30 Baby Aspirin 81 Mg Chew Administered 03/13/21 23:31 Dose 324 mg .ROUTE .STK-MED ONE Methylprednisolone Sodium 0 mg 03/14/21 12:00 03/14/21 12:16 Succinate 80 mg/ Sterile Water IV 04/13/21 11:59 80 mg 2 ml Q6HT FABRICIO Administration Methylprednisolone Sodium 0 mg 03/14/21 12:30 Succinate 40 mg/ Sterile Water IV 04/13/21 12:29 2 ml Q8H FABRICIO Furosemide 60 mg 03/13/21 22:52 03/13/21 23:44 Lasix 40 Mg/4 Ml IV 03/13/21 22:53 60 mg STAT ONE Administration Furosemide Confirm 03/13/21 23:30 Lasix 40 Mg/4 Ml Administered 03/13/21 23:31 Dose 80 mg .ROUTE .STK-MED ONE Levofloxacin/Dextrose 750 mg in 150 mls @ 100 mls/hr 03/13/21 22:53 03/14/21 02:25 Levofloxacin 750mg/150ml D5w IV 03/14/21 00:22 Infused STAT STA Infusion Levofloxacin/Dextrose Confirm 03/13/21 23:30 Levofloxacin 750mg/150ml D5w Administered 03/13/21 23:31 Dose 750 mg in 150 mls @ ud IV .STK-MED ONE Nitroglycerin/Dextrose 250 mls @ 1.5 mls/hr 03/14/21 00:10 Ntg 0.2mg/Ml In D5w Glass IV 04/13/21 00:09 .Q24H PRN CHEST PAIN Protocol 5 MCG/MIN Methylprednisolone Sodium Succinate 125 mg 03/13/21 22:52 03/13/21 23:44 Solu-Medrol 125 Mg IV 03/13/21 22:53 125 mg STAT ONE Administration Methylprednisolone Sodium Succinate Confirm 03/13/21 23:30 Solu-Medrol 125 Mg Administered 03/13/21 23:31 Dose 125 mg .ROUTE .STK-MED ONE Methylprednisolone Sodium Succinate 80 mg 03/14/21 03:27 03/14/21 04:43 Solu-Medrol 125 Mg IV 04/13/21 03:26 80 mg Q6H FABRICIO Administration Nitroglycerin 1 gm 03/13/21 22:52 03/13/21 23:41 Nitro-Bid 2% Ud Packets TOP 03/13/21 22:53 1 gm STAT ONE Administration Nitroglycerin Confirm 03/13/21 23:30 Nitro-Bid 2% Ud Packets Administered 03/13/21 23:31 Dose 1 gm .ROUTE .STK-MED ONE Ropinirole HCl 2 mg 03/14/21 00:57 03/14/21 01:06 Requip 2mg Tab PO 03/14/21 00:58 2 mg ONCE ONE Administration Sterile Water Confirm 03/13/21 23:30 Sterile H2o 10 Ml Administered 03/13/21 23:31 Dose 10 ml IJ .STK-MED ONE Sterile Water Confirm 03/14/21 04:36 Sterile H2o 10 Ml Administered 03/14/21 04:37 Dose 10 ml IJ .STK-MED ONE Intake & Output (Last 24 hours) 03/12/21 03/13/21 03/14/21 03/15/21 11:59 11:59 11:59 11:59 Intake Total 240 1650 Output Total 300 1350 Balance -60 300 Weight 104 kg 104.1 kg Laboratory Results (Last 24 hours) 03/14/21 03/14/21 11:15 08:05 Troponin I < 0.012 < 0.012 Orders (Last 24 hours) Category Date Time Status Heart-Healthy Diet Diet 03/14/21 Breakfast Active HEMOGLOBIN A1C Stat Lab 03/15/21 Ordered TROPONIN Q3H Lab 03/14/21 08:05 Completed TROPONIN Q3H Lab 03/14/21 11:15 Completed Albuterol/Ipratropium 3ml Neb* [DUONEB 0.5-3 MG/3 ml Med 03/14/21 07:00 Active Neb] 3 ml IH QIDRT Furosemide 40 mg [Lasix 40 MG] Med 03/14/21 10:00 Active 40 mg PO DAILY Levofloxacin [Levofloxacin 750Mg/150Ml D5w] Med 03/14/21 22:00 Active 750 mg in 150 ml IV QPM Methylprednis Sod Succ 125 mg* [solu-MEDROL] 40 mg Med 03/14/21 12:30 Discontinued Water For Injection,Sterile [Sterile H2O 10 ml] 2 ml IV Q8H Methylprednis Sod Succ 125 mg* [solu-MEDROL] 80 mg Med 03/14/21 12:00 Discontinued Water For Injection,Sterile [Sterile H2O 10 ml] 2 ml IV Q6HT Methylprednisolone Sod Suc 40M [solu-MEDROL 40 MG] Med 03/14/21 22:00 Active 40 mg IV Q8HT Pantoprazole 40 mg [Protonix 40 mg IV] Med 03/14/21 10:00 Active 40 mg IV Q24H10 Ropinirole 2Mg [Requip 2Mg Tab] Med 03/14/21 10:00 Active 2 mg PO TID - Vitals & Intake/Output Vital Signs: Vital Signs Temperature 98.0 F 03/15/21 07:09 Pulse Rate 73 03/15/21 07:35 Respiratory Rate 22 03/15/21 07:35 Blood Pressure 147/71 03/15/21 07:09 O2 Sat by Pulse Oximetry 93 L 03/15/21 07:35 Intake & Output: Intake & Output 03/12/21 03/13/21 03/14/21 03/15/21 11:59 11:59 11:59 11:59 Intake Total 240 1650 Output Total 300 1350 Balance -60 300 Weight 104 kg 104.1 kg - Lab Result Diagrams: 03/14/21 05:15 03/14/21 05:15 Lab Results-Last 24 Hrs: Lab Results-Last 24 Hours 03/14/21 03/14/21 Range/Units 08:05 11:15 Troponin I < 0.012 < 0.012 (0.000-0.034) ng/mL - Radiology Exams Ordered Rad Exams-Entire Visit: Radiology Procedures Category Date Time Status CHEST 1 VIEW (PORTABLE) Stat Exams 03/13/21 22:52 Completed - Procedures and Test Procedures and Tests throughout Hospitalization: Therapy Orders & Screens 03/13/21 22:51 Respiratory Therapy Assessment DAILY Comment: 03/14/21 03:27 Oxygen Nasal Cannula 5 lpm Comment: 03/14/21 04:02 RT Screen per Nursing Assess ONCE Comment: Protocol Order Physician Instructions: Greater than 3 points order RT Admission Screen Reason For Exam: Triggered on Admission Diagnosis: COPD EXACERBATION Diagnosis: COPD EXACERBATION Pneumonia: No Home O2: Yes Asthma: No CHF: Yes Home CPAP/BIPAP: No Home Nebs/MDI: Yes Total Points: 13 Smoking Cessation Education ONCE Comment: Diagnosis: COPD EXACERBATION Smoking Status: Current every day smoker How long have you smoked: 25 years Have you smoked in the past 12 months: Yes Approximately how many cigarettes per day: 30 Do you dip or chew tobacco: No Discharge Exam General Appearance: no apparent distress, alert Neurologic Exam: alert, 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, cooperative, normal mood/affect, nml cerebellar function, sensation nml, No motor deficits Eye Exam: PERRL, EOMI, eyes nml inspection Ears, Nose, Throat Exam: normal ENT inspection, pharynx normal, moist mucous membranes Neck Exam: normal inspection, non-tender, supple, full range of motion Respiratory Exam: lungs clear, diminished breath sounds, No respiratory distress Cardiovascular Exam: regular rate/rhythm, normal heart sounds Gastrointestinal/Abdomen Exam: soft, No tenderness, No mass Pelvic Exam: deferred Rectal Exam: deferred Back Exam: normal inspection, normal range of motion, No CVA tenderness, No vertebral tenderness Extremity Exam: normal inspection, normal range of motion Skin Exam: normal color, warm, dry Final Diagnosis/Problem List - Final Discharge Diagnosis/Problem (1) COPD exacerbation Status: Resolved Code(s): J44.1 - CHRONIC OBSTRUCTIVE PULMONARY DISEASE W (ACUTE) EXACERBATION (2) CHF exacerbation Status: Resolved Code(s): I50.9 - HEART FAILURE, UNSPECIFIED (3) Uncontrolled hypertension Status: Resolved Code(s): I10 - ESSENTIAL (PRIMARY) HYPERTENSION (4) Type 2 diabetes mellitus Status: Acute Priority: High Assessment & Plan: Last Vital Signs Temp 98.0 F 03/15/21 07:09 Pulse 73 03/15/21 07:35 Resp 22 03/15/21 07:35 BP 147/71 03/15/21 07:09 Pulse Ox 93 L 03/15/21 07:35 Allergies codeine Allergy (Intermediate, Verified 03/13/21 22:43) rash, itching cefaclor [From Ceclor] Allergy (Mild, Verified 03/13/21 22:43) Rash Penicillins Allergy (Mild, Verified 03/13/21 22:43) Swelling bacitracin [From Neosporin ([id number])] Adverse Reaction (Mild, Verified 03/13/21 22:43) Itching bacitracin zinc [From Neosporin ([id number]-wda-[id number])] Adverse Reaction (Mild, Verified 03/13/21 22:43) Itching levofloxacin [From Levaquin] Adverse Reaction (Mild, Verified 03/13/21 22:43) itch neomycin sulfate [From Neosporin ([id number]-adg-[id number])] Adverse Reaction (Mild, Verified 03/13/21 22:43) itch polymyxin B [From Neosporin (yqu-odu-[id number])] Adverse Reaction (Mild, Verified 03/13/21 22:43) Itching Microbiology 03/13/21 23:30 Blood Blood Culture - Preliminary NO GROWTH TO DATE 03/13/21 23:20 Blood Blood Culture - Preliminary NO GROWTH TO DATE - Discharge Discharge Date: 03/15/21 Disposition: Home, Self-Care Condition: Stable Prescriptions: New Levofloxacin [Levaquin] 250 mg PO DAILY #5 tablet Metformin HCl Xr 500 mg [Glucophage XR 500 MG] 500 mg PO DAILY #30 tab Methylprednisolone Packet [Medrol Dosepack] 4 mg PO UD #30 packet Continue Ropinirole HCl [Requip] 2 mg PO TID Furosemide 40 mg [Lasix 40 MG] 40 mg PO DAILY #30 tablet Instructions: Carbohydrate Counting Diet, Blood Glucose Monitoring, Diabetes Type 2 (DC), Diabetic Meal Planning Additional Instructions: Follow up with Dr. Linder on Wednesday or this week. Check your blood sugars before meals and at bedtime and keep a record for follow up appointment. Follow up with: ARSH LINDER MD [Primary Care Provider] - 5 Days Forms: Discharge Instructions
[2021-03-15] MEDS: REQUIP 2MG TAB PO SCH (08:46)
[2021-03-15] MEDS: Lasix 40 MG PO SCH (08:46)
[2021-03-15] MEDS: PROTONIX 40 MG IV IV SCH (08:47)
== END 2021-03-15 11:20 | disposition home or self-care (01) ==
LOC: ED 22:37 → INTOOBSV 03-14 03:22 → MED SURG 03-14 03:22 → UNDOADMOB 03-14 03:22 → MED SURG 03-14 03:22 → UNDODISOB 03-15 11:20
PROVIDERS: ADMIT General Practice; ATTEND General Practice
DX: J44.1 Chronic obstructive pulmonary disease with (acute) exacerbation (principal); I50.9 Heart failure, unspecified; E11.9 Type 2 diabetes mellitus without complications; R07.9 Chest pain, unspecified; I10 Essential (primary) hypertension; G25.81 Restless legs syndrome; Z79.899 Other long term (current) drug therapy; F17.200 Nicotine dependence, unspecified, uncomplicated; Z20.828 Contact with and (suspected) exposure to other viral communicable diseases
CPT/HCPCS: 36000; 36415; 71045; 80053; 83036; 83605; 83735; 83880; 84484; 85025; 87040; 93005; 93041; 93268; 94640; 94760; 96360; 96374; 96375; 99285; 99291; G0378; U0003; J1940; J1956; J2920; J2930; A9270-GY

== ENCOUNTER 2021-10-21 17:54 | Emergency (ER) | payer MEDICARE ==
[2021-10-21] MEDS ORDERED: solu-MEDROL 125 MG, Sterile H2O 10 ml 2 ML IV ONE ×2 (18:16)
[2021-10-21] MEDS ORDERED: DUONEB 0.5-3 MG/3 ml Neb IH ONE ×2 (18:16→18:26)
[2021-10-21 18:32] LABS: Appearance CLEAR (CLEAR); Bacteria RARE /HPF (NEGATIVE); Bilirubin NEGATIVE (NEGATIVE); Blood NEGATIVE Ery/ul (0-5); Glucose >=500 mg/dL (NEGATIVE); Ketones NEGATIVE (NEGATIVE); Leukocyte Esterase TRACE (NEGATIVE); Nitrite NEGATIVE (NEGATIVE); Protein,Urine Dip 100 (Negative); RBC 0-2 /HPF (0-2); Specific Gravity 1.018 (1.005-1.025); Urobilinogen NEGATIVE mg/dL (0-1)
--- NOTE | 2021-10-21 18:39 | ERPHSYRPT ---
- History of Present Illness Source: patient Exam Limitations: no limitations Patient Subjective Stated Complaint: BLE swelling Triage Nursing Assessment: Patient ambulated back to ED and transferred self to bed. Patient A+O x3. Patient's skin pink, warm and dry. Patient complains of BLE swelling for 2 weeks. Patient's BLE noted to be red, warm and swollen. Patient denies pain or discomfort. Timing/Duration: week(s) (2), gradual onset, worse Severity: moderate Associated Symptoms: shortness of breath, cough Hx Tetanus, Diphtheria Vaccination/Date Given: Yes Hx Influenza Vaccination/Date Given: No Hx Pneumococcal Vaccination/Date Given: No Immunizations Up to Date: Yes <ADEBAYO MADDOX - Last Filed: 10/21/21 18:37> <DUNG BAILEY - Last Filed: 10/21/21 23:34> - History of Present Illness Time Seen by Provider: 10/21/21 18:03 Physician History: 65 years old female with history of chronic respiratory failure secondary to COPD, heavy tobacco abuse, coronary artery disease, hypertension, hyperlipidemia presented in the ER with chief complaint of bilateral lower extremity swelling for the last 2 weeks with progressive worsening. Patient reports moderate intensity dull aching pain all the time with some redness of both lower legs. Has shortness of breath at his baseline which is a little worse than usual and has chronic smoker cough. Denies fever or chills. Denies any chest pain but has some tightness at times with wheezing all over. (ADEBAYO MADDOX) Allergies/Adverse Reactions: codeine Allergy (Intermediate, Verified 10/21/21 18:07) rash, itching cefaclor [From Ceclor] Allergy (Mild, Verified 10/21/21 18:07) Rash Penicillins Allergy (Mild, Verified 10/21/21 18:07) Swelling bacitracin [From Neosporin ([id number])] Adverse Reaction (Mild, Verified 10/21/21 18:07) Itching bacitracin zinc [From Neosporin ([id number])] Adverse Reaction (Mild, Verified 10/21/21 18:07) Itching levofloxacin [From Levaquin] Adverse Reaction (Mild, Verified 10/21/21 18:07) itch neomycin sulfate [From Neosporin ([id number])] Adverse Reaction (Mild, Alexis ified 02/15/22 18:07) itch polymyxin B [From Neosporin ([id number])] Adverse Reaction (Mild, Verified 10/21/21 18:07) Itching Home Medications: Ropinirole HCl [Requip] 2 mg PO TID 03/05/14 [History] Ipratropium/Albuterol Sulfate [Iprat-Albut 0.5-3(2.5) mg/3 ml] 1 vial IH QID 10/21/21 [History] Lisinopril/Hydrochlorothiazide [Lisinopril-Hctz 10-12.5 mg Tab] 1 tab PO DAILY 10/21/21 [History] Oxybutynin Chloride [Oxybutynin Chloride ER] 1 tab PO DAILY 10/21/21 [History] Potassium Chloride 1 tab PO BID 10/21/21 [History] Travel Risk - International Travel Have you traveled outside of the country in past 3 weeks: No - Coronavirus Screening Are you exhibiting any of the following symptoms?: No Close contact with a COVID-19 positive Pt in past 14-21 Days: No - Vaccine Status Have you recieved a Covid-19 vaccination: No <ADEBAYO MADDOX - Last Filed: 10/21/21 18:37> - Review of Systems Constitutional: Fatigue Eyes: No Symptoms Ears, Nose, & Throat: No Symptoms Respiratory: Cough, Dyspnea, Dyspnea on Exertion (MEJIA), Wheezing Cardiac: Edema Abdominal/Gastrointestinal: No Symptoms Genitourinary Symptoms: No Symptoms Musculoskeletal: Myalgias Skin: Cellulitis Neurological: No Symptoms Psychological: No Symptoms Endocrine: No Symptoms Hematologic/Lymphatic: No Symptoms Immunological/Allergic: No Symptoms <ADEBAYO MADDOX - Last Filed: 10/21/21 18:37> - Past Medical History Pertinent Past Medical History: Yes Neurological History: No Pertinent History ENT History: No Pertinent History Cardiac History: Congestive Heart Failure, Hypertension, Peripheral Vascular D isease Respiratory History: COPD, Emphysema Endocrine Medical History: No Pertinent History Musculoskeletal History: Arthritis, Fibromyalgia GI Medical History: No Pertinent History History: Other Psycho-Social History: No Pertinent History Female Reproductive Disorders: No Pertinent History Other Medical History: Stress Incontinence - Past Surgical History Past Surgical History: Yes Neuro Surgical History: No Pertinent History Cardiac: No Pertinent History Respiratory: No Pertinent History Gastrointestinal: Cholecystectomy Genitourinary: No Pertinent History Musculoskeletal: No Pertinent History Female Surgical History: No Pertinent History, Tubal Ligation - Social History Smoking Status: Current every day smoker How long have you smoked: 25 years Exposure to second hand smoke: Yes Drug Use: none Patient Lives Alone: No - Female History Hx Now: No <ADEBAYO MADDOX - Last Filed: 10/21/21 18:37> - Physical Exam General Appearance: no apparent distress, alert Eye Exam: PERRL/EOMI, eyes nml inspection Ears, Nose, Throat Exam: TMs normal, moist mucous membranes, pharyngeal erythema Neck Exam: normal inspection, supple, full range of motion Respiratory Exam: diminished breath sounds, rhonchi, wheezing Cardiovascular Exam: regular rate/rhythm, normal heart sounds Gastrointestinal/Abdomen Exam: soft, normal bowel sounds, No tenderness Back Exam: normal inspection, normal range of motion Extremity Exam: inflammation, pedal edema, swelling (Bilateral lower extremity swelling up to knee with some erythema, blanchable, mild tenderness), tenderness Neurologic Exam: alert, 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, cooperative Skin Exam: normal color SpO2 Interpretation: O2 applied SpO2: 98 O2 Delivery: Nasal Cannula (5 L) <ADEBAYO MADDOX - Last Filed: 10/21/21 18:37> - Nursing Vital Signs Nursing Vital Signs: Initial Vital Signs Temperature 98.3 F 10/21/21 18:07 Pulse Rate 102 H 10/21/21 18:07 Respiratory Rate 18 10/21/21 18:07 Blood Pressure 203/82 10/21/21 18:07 O2 Sat by Pulse Oximetry 98 10/21/21 18:07 Pain Scale Pain Intensity 6 - Course Nursing assessment & vital signs reviewed: Yes - Radiology Ultrasound Exam Venous Lower Extremity Ultrasound: discussed w/radiologist (Per cloth spreader screen printing bilateral lower extremity DVT ultrasounds negative for DVT.) <DUNG BAILEY - Last Filed: 10/21/21 23:34> Ordered Tests: Active Orders 24 hr Category Date Time Status AMA [Release AMA] OM.NOW Care 10/21/21 21:08 Completed AMA [Release AMA] OM.NOW Care 10/21/21 23:27 Ordered Clay Washer STAT Care 10/21/21 18:17 Completed EKG-ER Only STAT Care 10/21/21 18:16 Completed IV Insertion STAT Care 10/21/21 18:16 Completed Oxygen-ED Only Nasal Cannula 5 lpm Care 10/21/21 18:16 Completed CHEST 1 VIEW (PORTABLE) Stat Exams 10/21/21 19:16 Taken VENOUS BILATERAL EXTREMITY [US] Stat Exams 10/21/21 19:11 Taken BLOOD CULTURE Stat Lab 10/21/21 18:45 Received CBC W DIFF Stat Lab 10/21/21 18:23 Completed CMP Stat Lab 10/21/21 18:23 Completed CULTURE,URINE Stat Lab 10/21/21 18:19 Received Lactic Acid Stat Lab 10/21/21 18:32 Completed MAGNESIUM Stat Lab 10/21/21 18:23 Completed NT PRO BNP Stat Lab 10/21/21 18:23 Completed TROPONIN Q3H Lab 10/21/21 18:23 Completed UA W/RFX UR CULTURE Stat Lab 10/21/21 18:19 Completed Respiratory Therapy Assessment DAILY RT 10/21/21 18:37 Completed Medication Summary Discontinued Medications Generic Name Dose Route Start Last Admin Trade Name Freq PRN Reason Stop Dose Admin Acetaminophen 975 mg 10/21/21 20:30 10/21/21 20:31 Acetaminophen 325 Mg Tablet PO 10/21/21 20:31 975 mg STAT STA Administration Acetaminophen Confirm 10/21/21 20:31 Acetaminophen 325 Mg Tablet Administered 10/21/21 20:32 Dose 975 mg .ROUTE .STK-MED ONE Albuterol/Ipratropium 3 ml 10/21/21 18:16 10/21/21 18:30 Ipratropium/Albuterol Sulfate 3 Ml Ampul.Neb IH 10/21/21 18:17 3 ml STAT ONE Administration Albuterol/Ipratropium Confirm 10/21/21 18:26 Ipratropium/Albuterol Sulfate 3 Ml Ampul.Neb Administered 10/21/21 18:27 Dose 3 ml IH .STK-MED ONE Methylprednisolone Sodium 0 mg 10/21/21 18:16 10/21/21 18:52 Succinate 125 mg/ Sterile IV 10/21/21 18:17 125 mg Water 2 ml STAT ONE Administration Methylprednisolone Sodium Succinate Confirm 10/21/21 18:51 Methylprednis Sod Succ 125 Mg/2 Ml Vial Administered 10/21/21 18:52 Dose 125 mg .ROUTE .STK-MED ONE Sterile Water Confirm 10/21/21 18:51 Water For Injection,Sterile 10 Ml Vial Administered 10/21/21 18:52 Dose 10 ml IJ .[facility]-MED ONE Lab/Rad Data: Laboratory Result Diagrams 10/21/21 18:23 10/21/21 18:23 Laboratory Results 10/21/21 10/21/21 10/21/21 Range/Units 18:32 18:23 18:23 WBC (4.0-10.5) K/mm3 RBC (4.1-5.4) M/mm3 Hgb (12.0-16.0) gm/dl Hct (35-47) % MCV (78-100) fl MCH (26-32) pg MCHC (32-36) g/dl RDW (11.5-14.0) % Plt Count (150-450) K/mm3 MPV (7.5-11.0) fl Gran % (36.0-66.0) % Eos # (Auto) (0-0.5) Absolute Lymphs (auto) (1.0-4.6) Absolute Monos (auto) (0.0-1.3) Lymphocytes % (24.0-44.0) % Monocytes % (0.0-12.0) % Eosinophils % (0.00-5.0) % Basophils % (0.0-0.4) % Absolute Granulocytes (1.4-6.9) Basophils # (0-0.4) Sodium 138 (137-145) mmol/L Potassium 4.5 (3.5-5.1) mmol/L Chloride 98 (98-107) mmol/L Carbon Dioxide 33 H (22-30) mmol/L Anion Gap 11.8 (5-15) MEQ/L BUN 31 H (7-17) mg/dL Creatinine 0.76 (0.52-1.04) mg/dL Estimated GFR > 60.0 ML/MIN Glucose 165 H (74-106) mg/dL Lactic Acid 1.3 (0.4-2.0) Calcium 9.5 (8.4-10.2) mg/dL Magnesium 2.1 (1.6-2.3) mg/dL Total Bilirubin 0.40 (0.2-1.3) mg/dL AST 17 (14-36) U/L ALT 16 (0-35) U/L Alkaline Phosphatase 66 (38-126) U/L Troponin I < 0.012 (0.000-0.034) ng/mL NT-Pro-B Natriuret Pep 73.7 (0-900) pg/mL Serum Total Protein 7.0 (6.3-8.2) g/dL Albumin 3.9 (3.5-5.0) g/dL Urine Color (YELLOW) Urine Appearance (CLEAR) Urine pH (5-6) Ur Specific [place] (1.005-1.025) Urine Protein (Negative) Urine Ketones (NEGATIVE) Urine Blood (0-5) [place]/ul Urine Nitrite (NEGATIVE) Urine Bilirubin (NEGATIVE) Urine Urobilinogen (0-1) mg/dL Ur Leukocyte Esterase (NEGATIVE) Urine WBC (Auto) (0-5) /HPF Urine RBC (Auto) (0-2) /HPF U Epithel Cells (Auto) (FEW) /HPF Urine Bacteria (Auto) (NEGATIVE) /HPF Urine Culture Reflexed (NO) Urine Glucose (NEGATIVE) mg/dL 10/21/21 10/21/21 Range/Units 18:23 18:19 WBC 7.4 (4.0-10.5) K/mm3 RBC 4.48 (4.1-5.4) M/mm3 Hgb 13.3 (12.0-16.0) gm/dl Hct 42.3 (35-47) % MCV 94.4 (78-100) fl MCH 29.7 (26-32) pg MCHC 31.4 L (32-36) g/dl RDW 14.3 H (11.5-14.0) % Plt Count 212 (150-450) K/mm3 MPV 10.4 (7.5-11.0) fl Gran % 65.9 (36.0-66.0) % Eos # (Auto) 0.12 (0-0.5) Absolute Lymphs (auto) 1.78 (1.0-4.6) Absolute Monos (auto) 0.61 (0.0-1.3) Lymphocytes % 24.0 (24.0-44.0) % Monocytes % 8.2 (0.0-12.0) % Eosinophils % 1.6 (0.00-5.0) % Basophils % 0.3 (0.0-0.4) % Absolute Granulocytes 4.88 (1.4-6.9) Basophils # 0.02 (0-0.4) Sodium (137-145) mmol/L Potassium (3.5-5.1) mmol/L Chloride (98-107) mmol/L Carbon Dioxide (22-30) mmol/L Anion Gap (5-15) MEQ/L BUN (7-17) mg/dL Creatinine (0.52-1.04) mg/dL Estimated GFR ML/MIN Glucose (74-106) mg/dL Lactic Acid (0.4-2.0) Calcium (8.4-10.2) mg/dL Magnesium (1.6-2.3) mg/dL Total Bilirubin (0.2-1.3) mg/dL AST (14-36) U/L ALT (0-35) U/L Alkaline Phosphatase (38-126) U/L Troponin I (0.000-0.034) ng/mL NT-Pro-B Natriuret Pep (0-900) pg/mL Serum Total Protein (6.3-8.2) g/dL Albumin (3.5-5.0) g/dL Urine Color YELLOW (YELLOW) Urine Appearance CLEAR (CLEAR) Urine pH 6.0 (5-6) Ur Specific [place] 1.018 (1.005-1.025) Urine Protein 100 (Negative) Urine Ketones NEGATIVE (NEGATIVE) Urine Blood NEGATIVE (0-5) [place]/ul Urine Nitrite NEGATIVE (NEGATIVE) Urine Bilirubin NEGATIVE (NEGATIVE) Urine Urobilinogen NEGATIVE (0-1) mg/dL Ur Leukocyte Esterase TRACE (NEGATIVE) Urine WBC (Auto) 6-10 (0-5) /HPF Urine RBC (Auto) 0-2 (0-2) /HPF U Epithel Cells (Auto) NONE (FEW) /HPF Urine Bacteria (Auto) RARE (NEGATIVE) /HPF Urine Culture Reflexed YES (NO) Urine Glucose >=500 (NEGATIVE) mg/dL - Progress Progress: improved <DUNG BAILEY - Last Filed: 10/21/21 23:34> - Progress Progress Note: Patient is dorsal Dr. Bailey at approximately [address] Bailey advised to follow-up on pending venous Doppler. Patient expected to be admitted for possible cellulitis lower extremity swelling. Venous Doppler was performed. Study was negative for DVT. Shortly thereafter patient advised staff that she wanted to go home. She did not give a clear reason. Patient left before I could speak to her. AMA form signed by patient. 10/21/21 23:29 (DUNG BAILEY) <ADEBAYO MADDOX - Last Filed: 10/21/21 18:37> - Departure Departure Disposition: AMA Critical Care Time: No <DUNG BAILEY - Last Filed: 10/21/21 23:34> - Departure Clinical Impression: Swelling of lower leg Condition: Fair Referrals: ARSH LINDER MD [Primary Care Provider] - Follow up/PCP as directed
[2021-10-21] MEDS ORDERED: solu-MEDROL ONE (18:51)
[2021-10-21] MEDS ORDERED: Sterile H2O 10 ml IJ ONE (18:51)
[2021-10-21 18:54] LABS: Absolute Neutrophil Ct (ANC) 4.88 (1.4-6.9); Basophil (Absolute #) 0.02 (0-0.4); Eosinophil % 1.6 % (0.00-5.0); Eosinophil (Absolute #) 0.12 (0-0.5); Hematocrit 42.3 % (35-47); Hemoglobin 13.3 gm/dl (12.0-16.0); Lymphocyte (Absolute #) 1.78 (1.0-4.6); Mean Cell Volume 94.4 fl (78-100); Mean Corpuscular Hemoglobin 29.7 pg (26-32); Mean Corpuscular Hgb Concent. 31.4 g/dl (32-36); Mean Platelet Volume 10.4 fl (7.5-11.0); Monocyte (Absolute #) 0.61 (0.0-1.3); Monocytes % 8.2 % (0.0-12.0); Neutrophil % 65.9 % (36.0-66.0); Platelet Count 212 K/mm3 (150-450); Red Blood Count 4.48 M/mm3 (4.1-5.4); Red Cell Distribution Width 14.3 % (11.5-14.0); White Blood Count 7.4 K/mm3 (4.0-10.5)
[2021-10-21 19:21] LABS: ALBUMIN 3.9 g/dL (3.5-5.0); ALKALINE PHOSPHATASE 66 U/L (38-126); ANION GAP 11.8 MEQ/L (5-15); BLOOD UREA NITROGEN 31 mg/dL (7-17); CHLORIDE 98 mmol/L (98-107); Calcium 9.5 mg/dL (8.4-10.2); Carbon Dioxide 33 mmol/L (22-30); Creatinine 1 0.76 mg/dL (0.52-1.04); EST GLOMERULAR FILTRATION RATE > 60.0 ML/MIN; Glucose 165 mg/dL (74-106); MAGNESIUM 2.1 mg/dL (1.6-2.3); NT PRO BNP 73.7 pg/mL (0-900); Potassium 4.5 mmol/L (3.5-5.1); SGOT/AST 17 U/L (14-36); SGPT/ALT 16 U/L (0-35); SODIUM 138 mmol/L (137-145)
[2021-10-21] MEDS ORDERED: TYLENOL 325 MG PO STA (20:30)
[2021-10-21] MEDS ORDERED: TYLENOL 325 MG ONE (20:31)
[2021-10-21 20:39] VITALS: BP 186/91; PULSE 98; O2SAT 95
--- NOTE | 2021-10-22 08:35 | XRAY ---
Indication: Bilateral leg pain. Two-dimensional sonogram and color Doppler imaging of the major venous vessels of the left and right leg performed. Comparison: November 19, 2020. No thrombus seen in the examined deep venous vessels of the left and right leg including greater saphenous vein. Veins demonstrate normal compressibility. Venous waveforms are normal with and without augmentation. Impression: Left and right legs remain negative for DVT. Comment: Preliminary report was given.
--- NOTE | 2021-10-22 08:39 | XRAY ---
Indication: Short of breath. COPD. Comparison: March 13, 2021. Portable chest demonstrates new mild lingula infiltrate versus atelectasis. Remaining heart and lungs unremarkable. Bony thorax intact.
== END 2021-10-21 21:04 | disposition left against medical advice (07) ==
LOC: ED 17:54
DX: R60.0 Localized edema (principal); J44.9 Chronic obstructive pulmonary disease, unspecified; J96.10 Chronic respiratory failure, unspecified whether with hypoxia or hypercapnia; Z72.0 Tobacco use; I25.10 Atherosclerotic heart disease of native coronary artery without angina pectoris; E78.5 Hyperlipidemia, unspecified; I11.0 Hypertensive heart disease with heart failure; I50.9 Heart failure, unspecified; Z79.899 Other long term (current) drug therapy
CPT/HCPCS: 36000; 36415; 71045; 80053; 81001; 83605; 83735; 83880; 84484; 85025; 87040; 87077; 87086; 87186; 93005; 93041; 93970; 94640; 96374; 99284; J2930; A9270-GY

== ENCOUNTER 2022-01-08 03:37 | Observation (INO) | payer MEDICARE ==
--- NOTE | 2022-01-08 04:21 | ERPHSYRPT ---
- History of Present Illness Source: patient Exam Limitations: other (Poor historian) Patient Subjective Stated Complaint: pt states she has a sore on her leg that has gotten increasingly worse, states that she is treating it with triple antibiotic and doxycycline 100 mg as perscribed by her provider. Triage Nursing Assessment: pt is SOB, arrived with no o2 though she uses 5L at home. pt limping, staes that she has been taking her doxy, but upon examination of bottle of doxy it does not appear that pt has taken the medication as prescibed as the bottle is almost full and was prescibed on the 19 of December. Physician History: 66 yo wf w h/o DM/HTN/5L O2 dep COPD who continues to smoke 1ppd presents w nonhealing R pretibial skin lesion x 1 month. Pt is under care of Dr Boyer but seems to be non-compliant w her meds. She states that lesion is getting worse. Fever is denied. Timing/Duration: other (1 month) Quality: painful Severity: moderate Location: extremities (R pretibial area) Possible Causes: no cause identified Allergies/Adverse Reactions: codeine Allergy (Intermediate, Verified 01/08/22 08:12) rash, itching cefaclor [From Ceclor] Allergy (Mild, Verified 01/08/22 08:12) Rash Penicillins Allergy (Mild, Verified 01/08/22 08:12) Swelling bacitracin [From Neosporin ([id number])] Adverse Reaction (Mild, Verified 01/08/22 08:12) Itching bacitracin zinc [From Neosporin ([id number])] Adverse Reaction (Mild, Verified 01/08/22 08:12) Itching levofloxacin [From Levaquin] Adverse Reaction (Mild, Verified 01/08/22 08:12) itch neomycin sulfate [From Neosporin ([id number])] Adverse Reaction (Mild, Verified 01/08/22 08:12) itch polymyxin B [From Neosporin ([id number])] Adverse Reaction (Mild, Verified 01/08/22 08:12) Itching Home Medications: Ropinirole HCl [Requip] 3 mg PO TID 03/05/14 [History] Ipratropium/Albuterol Sulfate [Iprat-Albut 0.5-3(2.5) mg/3 ml] 1 neb IH QID 10/21/21 [History] Bumetanide 2 mg PO DAILY 01/08/22 [History] Doxycycline Hyclate 100 mg PO BID 01/08/22 [History] Gabapentin 300 mg [Neurontin 300 mg] 300 mg PO TID 01/08/22 [History] Smz/Tmp Ds Tablet [Bactrim Ds Tablet] 1 tab PO Q12H 01/08/22 [History] Hx Tetanus, Diphtheria Vaccination/Date Given: No Hx Influenza Vaccination/Date Given: No Hx Pneumococcal Vaccination/Date Given: No Immunizations Up to Date: No Travel Risk - International Travel Have you traveled outside of the country in past 3 weeks: No - Coronavirus Screening Are you exhibiting any of the following symptoms?: No Close contact with a COVID-19 positive Pt in past 14-21 Days: No - Vaccine Status Have you recieved a Covid-19 vaccination: No - Review of Systems Constitutional: No Symptoms Eyes: No Symptoms Ears, Nose, & Throat: No Symptoms Respiratory: No Symptoms Cardiac: No Symptoms Abdominal/Gastrointestinal: No Symptoms Genitourinary Symptoms: No Symptoms Skin: Skin Lesions Neurological: No Symptoms Psychological: No Symptoms Endocrine: No Symptoms Hematologic/Lymphatic: No Symptoms Immunological/Allergic: No Symptoms - Past Medical History Pertinent Past Medical History: Yes Neurological History: No Pertinent History ENT History: No Pertinent History Cardiac History: Congestive Heart Failure, Hypertension, Peripheral Vascular Disease Respiratory History: COPD, Emphysema Endocrine Medical History: No Pertinent History Musculoskeletal History: Arthritis, Fibromyalgia GI Medical History: No Pertinent History History: Other Psycho-Social History: No Pertinent History Female Reproductive Disorders: No Pertinent History Other Medical History: Stress Incontinence - Past Surgical History Past Surgical History: Yes Neuro Surgical History: No Pertinent History Cardiac: No Pertinent History Respiratory: No Pertinent History Gastrointestinal: Cholecystectomy Genitourinary: No Pertinent History Musculoskeletal: No Pertinent History Female Surgical History: No Pertinent History, Tubal Ligation - Social History Smoking Status: Current every day smoker How long have you smoked: 25 years Exposure to second hand smoke: Yes Drug Use: none Patient Lives Alone: No Significant Family History: no pertinent family hx - Nursing Vital Signs Nursing Vital Signs: Initial Vital Signs Temperature 97.4 F 01/08/22 03:42 Pulse Rate 112 H 01/08/22 03:42 Respiratory Rate 22 05/22 03:42 Blood Pressure 181/82 01/08/22 03:42 O2 Sat by Pulse Oximetry 93 L 01/08/22 03:42 Pain Scale Pain Intensity 8 Hypertensive/tachycardic/Borderline sats because pt walked from her car wo her O2 - Physical Exam General Appearance: no apparent distress Eye Exam: PERRL/EOMI, eyes nml inspection Ears, Nose, Throat Exam: normal ENT inspection, TMs normal, pharynx normal, moist mucous membranes Neck Exam: normal inspection, non-tender, supple, full range of motion, No meningismus, No mass, No Brudzinski, No Kernig's Respiratory Exam: airway intact, rhonchi (Scattered), No respiratory distress Cardiovascular Exam: tachycardia (Mild), capillary refill <2 sec, No murmur Gastrointestinal/Abdomen Exam: soft, normal bowel sounds, No tenderness Back Exam: normal inspection, normal range of motion, No CVA tenderness Extremity Exam: other (Chronic nonhealing R pretibial area w mild surrounding erythema) Neurologic Exam: alert, 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, 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, normal mood/affect, sensation nml, No motor deficits, No sensory deficit Skin Exam: other (See extremities) Lymphatic Exam: No adenopathy SpO2 Interpretation: borderline oxygenation SpO2: 93 O2 Delivery: Nasal Cannula - Course Nursing assessment & vital signs reviewed: Yes Ordered Tests: Medication Summary Discontinued Medications Generic Name Dose Route Start Last Admin Trade Name Freq PRN Reason Stop Dose Admin Acetaminophen 650 mg 01/08/22 14:43 01/09/22 12:35 Acetaminophen 325 Mg Tablet PO 02/07/22 14:42 650 mg Q4H PRN PRN Administration PAIN AND/OR FEVER Albuterol/Ipratropium 3 ml 01/08/22 07:00 01/08/22 19:48 Ipratropium/Albuterol Sulfate 3 Ml Ampul.[facility] 02/07/22 06:59 Not Given Q4HRT FABRICIO Albuterol/Ipratropium 3 ml 01/08/22 10:00 01/08/22 19:49 Ipratropium/Albuterol Sulfate 3 Ml Ampul.[facility] 02/07/22 09:59 Not Given QID FABRICIO Albuterol/Ipratropium 3 ml 01/08/22 14:52 Ipratropium/Albuterol Sulfate 3 Ml Ampul.[facility] 02/07/22 14:51 Q4HPRN PRN SHORTNESS OF BREATH/WHEEZING Bumetanide 2 mg 01/08/22 10:00 01/09/22 08:41 Bumetanide 1 Mg Tablet PO 02/07/22 09:59 2 mg DAILY FABRICIO Administration Doxycycline Hyclate 100 mg 01/08/22 10:00 01/09/22 08:40 Doxycycline Hyclate 100 Mg Tablet PO 02/07/22 09:59 100 mg BID FABRICIO Administration Enoxaparin Sodium 40 mg 01/08/22 10:00 01/09/22 08:41 Enoxaparin Sodium 40 Mg/0.4 Ml Syringe SQ 02/07/22 09:59 40 mg DAILY FABRICIO Administration Gabapentin 300 mg 01/08/22 10:00 01/09/22 08:41 Gabapentin 300 Mg Capsule PO 02/07/22 09:59 300 mg TID FABRICIO Administration Sodium Chloride 1,000 mls @ 999 mls/hr 01/08/22 04:50 01/08/22 06:54 Sodium Chloride 0.9% 1000 Ml IV 01/08/22 05:50 300 mls/hr .Q1H1M STA Infusion Vancomycin HCl 1 gm in 200 mls @ 125 mls/hr 01/08/22 04:52 01/08/22 05:31 Vancomycin 1 Gram/200 Ml Bag IV 01/08/22 06:27 Not Given ONCE ONE Sodium Chloride 1,000 mls @ 100 mls/hr 01/08/22 05:15 01/08/22 20:59 Sodium Chloride 0.9% 1000 Ml IV 02/07/22 05:14 100 mls/hr .Q10H FABRICIO Administration Vancomycin HCl 1 gm in 200 mls @ 125 mls/hr 01/08/22 10:00 01/09/22 10:51 Vancomycin 1 Gram/200 Ml Bag IV 02/07/22 09:59 125 mls/hr BID FABRICIO 125 mls/hr Administration Insulin Human Lispro 0 unit 01/08/22 05:03 01/09/22 12:37 Insulin Lispro 1 Unit SQ 02/07/22 05:02 2 unit UD PRN Administration HYPERGLYCEMIA Morphine Sulfate 2 mg 01/08/22 14:43 Morphine Sulfate 2 Mg/Ml Inj IV 01/13/22 14:42 Q4H PRN PRN PAIN Morphine Sulfate 0.5 mg 01/08/22 15:03 01/08/22 15:16 Morphine Sulfate 2 Mg/Ml Inj IV 01/08/22 15:04 0.5 mg 1XONLY ONE Administration Nystatin 1 gm 01/08/22 10:00 01/09/22 08:41 Nystatin 15 Gm Powder TP 02/07/22 09:59 1 gm BID FABRICIO Administration Pantoprazole Sodium 40 mg 01/08/22 10:00 01/09/22 08:41 Pantoprazole 40 Mg Vial IV 02/07/22 09:59 40 mg Q24H10 FABRICIO Administration Ropinirole HCl 3 mg 01/08/22 10:00 01/09/22 08:40 Ropinirole Hcl 2 Mg Tablet PO 02/07/22 09:59 3 mg TID FABRICIO Administration Fluticasone/Salmeterol 2 puff 01/08/22 07:00 01/09/22 07:15 Fluticasone/Salmeterol 115/21 - 120 Puff Common Canister IH 02/07/22 06:59 2 puff BIDRT FABRICIO Administration Trimethoprim/Sulfamethoxazole 1 tab 01/08/22 10:00 01/09/22 08:41 Smz/Tmp Ds Tablet 1 Tablet PO 02/07/22 09:59 1 tab Q12HT FABRICIO Administration Lab/Rad Data: Laboratory Result Diagrams 01/08/22 04:20 01/08/22 04:20 Laboratory Results 01/08/22 01/08/22 01/08/22 Range/Units 05:10 04:20 04:20 WBC 7.4 (4.0-10.5) K/mm3 RBC 4.17 (4.1-5.4) M/mm3 Hgb 12.3 (12.0-16.0) gm/dl Hct 41.5 (35-47) % MCV 99.5 (78-100) fl MCH 29.5 (26-32) pg MCHC 29.6 L (32-36) g/dl RDW 14.3 H (11.5-14.0) % Plt Count 175 (150-450) K/mm3 MPV 10.9 (7.5-11.0) fl Gran % 72.0 H (36.0-66.0) % Eos # (Auto) 0.15 (0-0.5) Absolute Lymphs (auto) 1.50 (1.0-4.6) Absolute Monos (auto) 0.39 (0.0-1.3) Lymphocytes % 20.3 L (24.0-44.0) % Monocytes % 5.3 (0.0-12.0) % Eosinophils % 2.0 (0.00-5.0) % Basophils % 0.4 (0.0-0.4) % Absolute Granulocytes 5.33 (1.4-6.9) Basophils # 0.03 (0-0.4) Sodium 140 (137-145) mmol/L Potassium 4.3 (3.5-5.1) mmol/L Chloride 98 (98-107) mmol/L Carbon Dioxide 34 H (22-30) mmol/L Anion Gap 11.9 (5-15) MEQ/L BUN 28 H (7-17) mg/dL Creatinine 0.78 (0.52-1.04) mg/dL Estimated GFR > 60.0 ML/MIN Glucose 236 H (74-106) mg/dL Lactic Acid (0.4-2.0) Calcium 8.6 (8.4-10.2) mg/dL Total Bilirubin 0.40 (0.2-1.3) mg/dL AST 19 (14-36) U/L ALT 17 (0-35) U/L Alkaline Phosphatase 58 (38-126) U/L Serum Total Protein 6.2 L (6.3-8.2) g/dL Albumin 3.4 L (3.5-5.0) g/dL Influenza Type A Ag NEGATIVE (NEGATIVE) Influenza Type B Ag NEGATIVE (NEGATIVE) RSV (PCR) NEGATIVE (Negative) SARS-CoV-2 (PCR) NEGATIVE (NEGATIVE) 01/08/22 Range/Units 04:18 WBC (4.0-10.5) K/mm3 RBC (4.1-5.4) M/mm3 Hgb (12.0-16.0) gm/dl Hct (35-47) % MCV (78-100) fl MCH (26-32) pg MCHC (32-36) g/dl RDW (11.5-14.0) % Plt Count (150-450) K/mm3 MPV (7.5-11.0) fl Gran % (36.0-66.0) % Eos # (Auto) (0-0.5) Absolute Lymphs (auto) (1.0-4.6) Absolute Monos (auto) (0.0-1.3) Lymphocytes % (24.0-44.0) % Monocytes % (0.0-12.0) % Eosinophils % (0.00-5.0) % Basophils % (0.0-0.4) % Absolute Granulocytes (1.4-6.9) Basophils # (0-0.4) Sodium (137-145) mmol/L Potassium (3.5-5.1) mmol/L Chloride (98-107) mmol/L Carbon Dioxide (22-30) mmol/L Anion Gap (5-15) MEQ/L BUN (7-17) mg/dL Creatinine (0.52-1.04) mg/dL Estimated GFR ML/MIN Glucose (74-106) mg/dL Lactic Acid 2.1 H (0.4-2.0) Calcium (8.4-10.2) mg/dL Total Bilirubin (0.2-1.3) mg/dL AST (14-36) U/L ALT (0-35) U/L Alkaline Phosphatase (38-126) U/L Serum Total Protein (6.3-8.2) g/dL Albumin (3.5-5.0) g/dL Influenza Type A Ag (NEGATIVE) Influenza Type B Ag (NEGATIVE) RSV (PCR) (Negative) SARS-CoV-2 (PCR) (NEGATIVE) - Progress Progress Note: 01/08/22 05:09 1L NS bolus 1gm IV Vancomycin Blood cultures x2 Discussed with : Martha Will see patient in: hospital (observation) Counseled pt/family regarding: lab results, diagnosis, need for follow-up - Departure Departure Disposition: Observation Clinical Impression: Cellulitis, Diabetic ulcer of lower leg, Noncompliance Condition: Stable Critical Care Time: No
[2022-01-08 04:26] LABS: Absolute Neutrophil Ct (ANC) 5.33 (1.4-6.9); Basophil (Absolute #) 0.03 (0-0.4); Eosinophil (Absolute #) 0.15 (0-0.5); Hematocrit 41.5 % (35-47); Hemoglobin 12.3 gm/dl (12.0-16.0); Lymphocytes % 20.3 % (24.0-44.0); Mean Cell Volume 99.5 fl (78-100); Mean Corpuscular Hemoglobin 29.5 pg (26-32); Mean Corpuscular Hgb Concent. 29.6 g/dl (32-36); Mean Platelet Volume 10.9 fl (7.5-11.0); Monocyte (Absolute #) 0.39 (0.0-1.3); Monocytes % 5.3 % (0.0-12.0); Platelet Count 175 K/mm3 (150-450); Red Blood Count 4.17 M/mm3 (4.1-5.4); Red Cell Distribution Width 14.3 % (11.5-14.0); White Blood Count 7.4 K/mm3 (4.0-10.5)
[2022-01-08 04:37] LABS: ALBUMIN 3.4 g/dL (3.5-5.0); ALKALINE PHOSPHATASE 58 U/L (38-126); ANION GAP 11.9 MEQ/L (5-15); BLOOD UREA NITROGEN 28 mg/dL (7-17); CHLORIDE 98 mmol/L (98-107); Calcium 8.6 mg/dL (8.4-10.2); Carbon Dioxide 34 mmol/L (22-30); Creatinine 1 0.78 mg/dL (0.52-1.04); EST GLOMERULAR FILTRATION RATE > 60.0 ML/MIN; Glucose 236 mg/dL (74-106); Potassium 4.3 mmol/L (3.5-5.1); SGOT/AST 19 U/L (14-36); SGPT/ALT 17 U/L (0-35); SODIUM 140 mmol/L (137-145); Total Protein 6.2 g/dL (6.3-8.2)
[2022-01-08] MEDS ORDERED: Sodium Chloride 0.9% 1000 ML 1,000 ML IV STA (04:50)
[2022-01-08] MEDS ORDERED: VANCOMYCIN 1 GRAM/200 ML BAG 1 GM/200 ML PIGGYBACK IV ONE (04:52)
[2022-01-08] MEDS: VANCOMYCIN 1 GRAM/200 ML BAG 1 GM/200 ML PIGGYBACK IV SCH ×2 (05:21→22:22)
[2022-01-08 05:53] LABS: INFLUENZA A NEGATIVE (NEGATIVE); INFLUENZA B NEGATIVE (NEGATIVE); RESPIRATORY SYNCTIAL VIRUS NEGATIVE (Negative); SARS-CoV-2 Xpert Express NEGATIVE (NEGATIVE)
[2022-01-08] MEDS: BUMEX 1 MG PO SCH (10:00)
[2022-01-08] MEDS ORDERED: NON-FORMULARY ITEM (Bumetanide [Bumetanide] 2 MG Tablet) PO SCH (10:00)
[2022-01-08] MEDS ORDERED: DOXYCYCLINE HYCLATE 100 MG PO SCH (10:00)
[2022-01-08] MEDS ORDERED: NON-FORMULARY ITEM (Ropinirole Hcl [Requip] 1 MG Tablet) PO SCH (10:00)
[2022-01-08] MEDS: BACTRIM DS TABLET PO SCH ×2 (10:00→22:21)
[2022-01-08] MEDS: REQUIP 2MG TAB PO SCH ×3 (10:00→22:22)
[2022-01-08] MEDS: Vibramycin 100 MG PO SCH ×2 (10:01→22:22)
[2022-01-08] MEDS: NYSTOP POWDER 15 GM TP SCH ×2 (10:01→22:22)
[2022-01-08] MEDS: ENOXAPARIN SODIUM SQ SCH (10:01)
[2022-01-08] MEDS: PROTONIX 40 MG IV IV SCH (10:01)
[2022-01-08] MEDS: NEURONTIN 300 MG PO SCH ×3 (10:01→22:21)
[2022-01-08] MEDS: Sodium Chloride 0.9% 1000 ML 1,000 ML IV SCH ×2 (11:08→20:59)
[2022-01-08] MEDS ORDERED: MORPHINE SULFATE 2 MG INJ IV PRN (14:43)
[2022-01-08] MEDS ORDERED: DUONEB 0.5-3 MG/3 ml Neb IH PRN (14:52)
[2022-01-08] MEDS ORDERED: MORPHINE SULFATE 2 MG INJ IV ONE (15:03)
[2022-01-08] MEDS: HUMALOG SQ PRN ×2 (17:24→22:28)
[2022-01-08] MEDS: DUONEB 0.5-3 MG/3 ml Neb IH SCH ×4 (18:49→19:49)
[2022-01-08] MEDS: Advair Hfa 115/21 Common canister IH SCH ×2 (18:50→20:24)
[2022-01-09] MEDS: TYLENOL 325 MG PO PRN ×2 (03:10→12:35)
[2022-01-09 05:25] LABS: Absolute Neutrophil Ct (ANC) 5.74 (1.4-6.9); Basophil (Absolute #) 0.02 (0-0.4); Eosinophil % 1.4 % (0.00-5.0); Eosinophil (Absolute #) 0.11 (0-0.5); Hematocrit 39.1 % (35-47); Hemoglobin 11.4 gm/dl (12.0-16.0); Lymphocyte (Absolute #) 1.28 (1.0-4.6); Lymphocytes % 16.6 % (24.0-44.0); Mean Cell Volume 100.5 fl (78-100); Mean Corpuscular Hemoglobin 29.3 pg (26-32); Mean Corpuscular Hgb Concent. 29.2 g/dl (32-36); Mean Platelet Volume 10.4 fl (7.5-11.0); Monocyte (Absolute #) 0.54 (0.0-1.3); Neutrophil % 74.7 % (36.0-66.0); Platelet Count 202 K/mm3 (150-450); Red Blood Count 3.89 M/mm3 (4.1-5.4); Red Cell Distribution Width 14.4 % (11.5-14.0); White Blood Count 7.7 K/mm3 (4.0-10.5)
[2022-01-09 05:46] LABS: ALKALINE PHOSPHATASE 53 U/L (38-126); ANION GAP 10.2 MEQ/L (5-15); BLOOD UREA NITROGEN 21 mg/dL (7-17); CHLORIDE 99 mmol/L (98-107); Carbon Dioxide 32 mmol/L (22-30); Creatinine 1 0.54 mg/dL (0.52-1.04); EST GLOMERULAR FILTRATION RATE > 60.0 ML/MIN; Glucose 226 mg/dL (74-106); Potassium 4.2 mmol/L (3.5-5.1); SGOT/AST 17 U/L (14-36); SGPT/ALT 14 U/L (0-35); SODIUM 137 mmol/L (137-145); Total Protein 5.9 g/dL (6.3-8.2)
[2022-01-09] MEDS: Advair Hfa 115/21 Common canister IH SCH (07:15)
--- NOTE | 2022-01-09 08:35 | PCM.SSS ---
History of Present Illness - Chief Complaint Chief Complaint: RIGHT LOWER LEG CELLULITIS/NON-HEALING WOUND History of Present Illness: is a 66 year old female with a nonhealing wound of her right lower leg, hx of diabetes and noncompliance. she was admitted and started on IV antibiotic s, wound is fairly superficial and there is no streaking or purulent drainage. she is in no distress and does not appear acutely ill - Review of Systems Constitutional: No Fever, No Chills Respiratory: No Cough, No Short Of Breath Cardiac: No Chest Pain, No Edema, No Syncope Abdominal/Gastrointestinal: No Abdominal Pain, No Nausea, No Vomiting, No Diarrhea Musculoskeletal: Other (wound to right lower leg) All Other Systems: Reviewed and Negative Medications & Allergies Home Medications: Home Medication List Ropinirole HCl [Requip] 3 mg PO TID 03/05/14 [History Confirmed 01/08/22] Ipratropium/Albuterol Sulfate [Iprat-Albut 0.5-3(2.5) mg/3 ml] 1 neb IH QID 10/21/21 [History Confirmed 01/08/22] Bumetanide 2 mg PO DAILY 01/08/22 [History Confirmed 01/08/22] Doxycycline Hyclate 100 mg PO BID 01/08/22 [History Confirmed 01/08/22] Gabapentin 300 mg [Neurontin 300 mg] 300 mg PO TID 01/08/22 [History Confirmed 01/08/22] Smz/Tmp Ds Tablet [Bactrim Ds Tablet] 1 tab PO Q12H 01/08/22 [History Confirmed 01/08/22] Empagliflozin [Jardiance] 10 mg PO DAILY #30 tablet 01/09/22 [Rx] Metformin HCl 500 mg [Glucophage 500 MG] 500 mg PO BIDWM #60 tablet 01/09/22 [Rx] Allergies/Adverse Reactions: Allergies Allergy/AdvReac Type Severity Reaction Status Date / Time codeine Allergy Intermediate rash, Verified 01/08/22 08:12 itching cefaclor [From Ceclor] Allergy Mild Rash Verified 01/08/22 08:12 Penicillins Allergy Mild Swelling Verified 01/08/22 08:12 bacitracin AdvReac Mild Itching Verified 01/08/22 08:12 [From Neosporin ([id number])] bacitracin zinc AdvReac Mild Itching Verified 01/08/22 08:12 [From Neosporin ([id number])] levofloxacin [From Levaquin] AdvReac Mild itch Verified 01/08/22 08:12 neomycin sulfate AdvReac Mild itch Verified 01/08/22 08:12 [From Neosporin ([id number])] polymyxin B AdvReac Mild Itching Verified 01/08/22 08:12 [From Neosporin ([id number])] - Past Medical History Past Medical History: Yes Neurological History: No Pertinent History ENT History: No Pertinent History Cardiac History: Congestive Heart Failure, Hypertension, Peripheral Vascular Disease Respiratory History: COPD, Emphysema Endocrine Medical History: No Pertinent History Musculoskelatal History: Arthritis, Fibromyalgia GI Medical History: No Pertinent History History: Other Pyscho-Social History: No Pertinent History Reproductive Disorders: No Pertinent History Comment: Stress Incontinence - Female History Are you now?: No - Past Surgical History Past Surgical History: Yes Neuro Surgical History: No Pertinent History Cardiac History: No Pertinent History Respiratory Surgery: No Pertinent History GI Surgical History: Cholecystectomy Genitourinary Surgical Hx: No Pertinent History Musculskeletal Surgical Hx: No Pertinent History Female Surgical History: Tubal Ligation - Social History Smoking Status: Current every day smoker How long have you smoked: 20 YEARS Exposure to second hand smoke: Yes Alcohol: None Drug Use: none Significant Family History: no pertinent family hx - Physical Exam Vital Signs: Vital Signs - 24 hr Temp Pulse Resp BP Pulse Ox 01/09/22 08:00 97.5 F 83 16 139/63 95 01/09/22 04:00 98.2 F 63 24 139/76 93 L 01/09/22 00:00 99.8 F 101 H 26 H 130/59 94 L 01/08/22 20:00 98.4 F 94 H 20 135/62 95 01/08/22 18:51 96 H 18 95 01/08/22 16:00 97.7 F 97 H 18 139/67 95 01/08/22 12:00 98.4 F 94 H 20 197/77 95 01/08/22 11:13 94 H 20 95 01/08/22 08:35 98.4 F 82 18 197/77 91 L General Appearance: no apparent distress, obese Neurologic Exam: alert, 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 Respiratory Exam: normal breath sounds, lungs clear, No respiratory distress Cardiovascular Exam: regular rate/rhythm, normal heart sounds, normal peripheral pulses Gastrointestinal/Abdomen Exam: soft, normal bowel sounds, No tenderness, No mass Extremity Exam: other (superficial wound to right medial lower leg, scant drainage, no streaking or warmth) Wound Assessment: Skin/Wound Assessment Wound/Incision Assessment Start: 01/08/22 08:13 Text: Status: Active Freq: Q6H Protocol: Document 01/09/22 02:00 TC (Rec: 01/09/22 02:16 TC [id number]) Wound/Incision Assessment Right Lower Other Wound Assessment Shift Assessment Wound Type CELLULITIS Wound Stage Non Pressure Wound Dressing Status Dry & Intact Drainage Amount None Comment DRESSING PER PHYSICAL THERAPY ON. CLEAN, DRY AND INTACT -- remains true Wound Photo Comment: ON ADMISSION Results - Labs Lab/Micro Results: Lab Results-Last 24 Hours 01/08/22 01/08/22 01/08/22 Range/Units 11:54 11:54 16:06 WBC (4.0-10.5) K/mm3 RBC (4.1-5.4) M/mm3 Hgb (12.0-16.0) gm/dl Hct (35-47) % MCV (78-100) fl MCH (26-32) pg MCHC (32-36) g/dl RDW (11.5-14.0) % Plt Count (150-450) K/mm3 MPV (7.5-11.0) fl Gran % (36.0-66.0) % Eos # (Auto) (0-0.5) Absolute Lymphs (auto) (1.0-4.6) Absolute Monos (auto) (0.0-1.3) Lymphocytes % (24.0-44.0) % Monocytes % (0.0-12.0) % Eosinophils % (0.00-5.0) % Basophils % (0.0-0.4) % Absolute Granulocytes (1.4-6.9) Basophils # (0-0.4) Sodium (137-145) mmol/L Potassium (3.5-5.1) mmol/L Chloride (98-107) mmol/L Carbon Dioxide (22-30) mmol/L Anion Gap (5-15) MEQ/L BUN (7-17) mg/dL Creatinine (0.52-1.04) mg/dL Estimated GFR ML/MIN Glucose (74-106) mg/dL POC Glucometer 176 H 176 H 206 H (74 to 106) mg/dL Lactic Acid (0.4-2.0) Calcium (8.4-10.2) mg/dL Total Bilirubin (0.2-1.3) mg/dL AST (14-36) U/L ALT (0-35) U/L Alkaline Phosphatase (38-126) U/L Serum Total Protein (6.3-8.2) g/dL Albumin (3.5-5.0) g/dL 01/08/22 01/09/22 01/09/22 Range/Units 22:08 04:50 04:50 WBC 7.7 (4.0-10.5) K/mm3 RBC 3.89 L (4.1-5.4) M/mm3 Hgb 11.4 L (12.0-16.0) gm/dl Hct 39.1 (35-47) % MCV 100.5 H (78-100) fl MCH 29.3 (26-32) pg MCHC 29.2 L (32-36) g/dl RDW 14.4 H (11.5-14.0) % Plt Count 202 (150-450) K/mm3 MPV 10.4 (7.5-11.0) fl Gran % 74.7 H (36.0-66.0) % Eos # (Auto) 0.11 (0-0.5) Absolute Lymphs (auto) 1.28 (1.0-4.6) Absolute Monos (auto) 0.54 (0.0-1.3) Lymphocytes % 16.6 L (24.0-44.0) % Monocytes % 7.0 (0.0-12.0) % Eosinophils % 1.4 (0.00-5.0) % Basophils % 0.3 (0.0-0.4) % Absolute Granulocytes 5.74 (1.4-6.9) Basophils # 0.02 (0-0.4) Sodium 137 (137-145) mmol/L Potassium 4.2 (3.5-5.1) mmol/L Chloride 99 (98-107) mmol/L Carbon Dioxide 32 H (22-30) mmol/L Anion Gap 10.2 (5-15) MEQ/L BUN 21 H (7-17) mg/dL Creatinine 0.54 (0.52-1.04) mg/dL Estimated GFR > 60.0 ML/MIN Glucose 226 H (74-106) mg/dL POC Glucometer 217 H (74 to 106) mg/dL Lactic Acid (0.4-2.0) Calcium 8.0 L (8.4-10.2) mg/dL Total Bilirubin 0.40 (0.2-1.3) mg/dL AST 17 (14-36) U/L ALT 14 (0-35) U/L Alkaline Phosphatase 53 (38-126) U/L Serum Total Protein 5.9 L (6.3-8.2) g/dL Albumin 3.0 L (3.5-5.0) g/dL 01/09/22 01/09/22 Range/Units 05:25 07:24 WBC (4.0-10.5) K/mm3 RBC (4.1-5.4) M/mm3 Hgb (12.0-16.0) gm/dl Hct (35-47) % MCV (78-100) fl MCH (26-32) pg MCHC (32-36) g/dl RDW (11.5-14.0) % Plt Count (150-450) K/mm3 MPV (7.5-11.0) fl Gran % (36.0-66.0) % Eos # (Auto) (0-0.5) Absolute Lymphs (auto) (1.0-4.6) Absolute Monos (auto) (0.0-1.3) Lymphocytes % (24.0-44.0) % Monocytes % (0.0-12.0) % Eosinophils % (0.00-5.0) % Basophils % (0.0-0.4) % Absolute Granulocytes (1.4-6.9) Basophils # (0-0.4) Sodium (137-145) mmol/L Potassium (3.5-5.1) mmol/L Chloride (98-107) mmol/L Carbon Dioxide (22-30) mmol/L Anion Gap (5-15) MEQ/L BUN (7-17) mg/dL Creatinine (0.52-1.04) mg/dL Estimated GFR ML/MIN Glucose (74-106) mg/dL POC Glucometer 175 H (74 to 106) mg/dL Lactic Acid 1.1 (0.4-2.0) Calcium (8.4-10.2) mg/dL Total Bilirubin (0.2-1.3) mg/dL AST (14-36) U/L ALT (0-35) U/L Alkaline Phosphatase (38-126) U/L Serum Total Protein (6.3-8.2) g/dL Albumin (3.5-5.0) g/dL Accuchecks Date 01/09/22 Date 01/08/22 Time 07:52 Time 16:32 Assessment/Plan (1) Cellulitis Current Visit: Yes Status: Acute Code(s): L03.90 - CELLULITIS, UNSPECIFIED (2) Diabetic ulcer of lower leg Current Visit: Yes Status: Acute Assessment & Plan: will refer to our wound care program at [facility], continue on bactrim at discharge and doxy, wound appears chronic and unlikely to benefit from inpatient stay currently. patient agrees. Code(s): E11.622 - TYPE 2 DIABETES MELLITUS WITH OTHER SKIN ULCER; L97.909 - NON -PRS CHRONIC ULC UNSP PRT OF UNSP LOW LEG W UNSP SEVERITY (3) Noncompliance Current Visit: Yes Status: Acute Assessment & Plan: a1c 7.8% last month, on no meds for diabetes on medlist currently. will start on oral meds, f/u with PCP Code(s): Z91.19 - PATIENT'S NONCOMPLIANCE [facility] Hospital Summary - Vitals & Intake/Output Vital Signs: Vital Signs Temperature 97.5 F 01/09/22 08:00 Pulse Rate 83 01/09/22 08:00 Respiratory Rate 16 01/09/22 08:00 Blood Pressure 139/63 01/09/22 08:00 O2 Sat by Pulse Oximetry 95 01/09/22 08:00 Intake & Output: Intake & Output 01/06/22 01/07/22 01/08/22 01/09/22 11:59 11:59 11:59 11:59 Intake Total 240 3452 Output Total 2900 Balance 240 552 Weight 108.5 kg - Lab Result Diagrams: 01/09/22 04:50 01/09/22 04:50 Lab Results-Last 24 Hrs: Lab Results-Last 24 Hours 01/08/22 01/08/22 01/08/22 Range/Units 11:54 11:54 16:06 WBC (4.0-10.5) K/mm3 RBC (4.1-5.4) M/mm3 Hgb (12.0-16.0) gm/dl Hct (35-47) % MCV (78-100) fl MCH (26-32) pg MCHC (32-36) g/dl RDW (11.5-14.0) % Plt Count (150-450) K/mm3 MPV (7.5-11.0) fl Gran % (36.0-66.0) % Eos # (Auto) (0-0.5) Absolute Lymphs (auto) (1.0-4.6) Absolute Monos (auto) (0.0-1.3) Lymphocytes % (24.0-44.0) % Monocytes % (0.0-12.0) % Eosinophils % (0.00-5.0) % Basophils % (0.0-0.4) % Absolute Granulocytes (1.4-6.9) Basophils # (0-0.4) Sodium (137-145) mmol/L Potassium (3.5-5.1) mmol/L Chloride (98-107) mmol/L Carbon Dioxide (22-30) mmol/L Anion Gap (5-15) MEQ/L BUN (7-17) mg/dL Creatinine (0.52-1.04) mg/dL Estimated GFR ML/MIN Glucose (74-106) mg/dL POC Glucometer 176 H 176 H 206 H (74 to 106) mg/dL Lactic Acid (0.4-2.0) Calcium (8.4-10.2) mg/dL Total Bilirubin (0.2-1.3) mg/dL AST (14-36) U/L ALT (0-35) U/L Alkaline Phosphatase (38-126) U/L Serum Total Protein (6.3-8.2) g/dL Albumin (3.5-5.0) g/dL 0501/09/22 01/09/22 Range/Units 22:08 04:50 04:50 WBC 7.7 (4.0-10.5) K/mm3 RBC 3.89 L (4.1-5.4) M/mm3 Hgb 11.4 L (12.0-16.0) gm/dl Hct 39.1 (35-47) % MCV 100.5 H (78-100) fl MCH 29.3 (26-32) pg MCHC 29.2 L (32-36) g/dl RDW 14.4 H (11.5-14.0) % Plt Count 202 (150-450) K/mm3 MPV 10.4 (7.5-11.0) fl Gran % 74.7 H (36.0-66.0) % Eos # (Auto) 0.11 (0-0.5) Absolute Lymphs (auto) 1.28 (1.0-4.6) Absolute Monos (auto) 0.54 (0.0-1.3) Lymphocytes % 16.6 L (24.0-44.0) % Monocytes % 7.0 (0.0-12.0) % Eosinophils % 1.4 (0.00-5.0) % Basophils % 0.3 (0.0-0.4) % Absolute Granulocytes 5.74 (1.4-6.9) Basophils # 0.02 (0-0.4) Sodium 137 (137-145) mmol/L Potassium 4.2 (3.5-5.1) mmol/L Chloride 99 (98-107) mmol/L Carbon Dioxide 32 H (22-30) mmol/L Anion Gap 10.2 (5-15) MEQ/L BUN 21 H (7-17) mg/dL Creatinine 0.54 (0.52-1.04) mg/dL Estimated GFR > 60.0 ML/MIN Glucose 226 H (74-106) mg/dL POC Glucometer 217 H (74 to 106) mg/dL Lactic Acid (0.4-2.0) Calcium 8.0 L (8.4-10.2) mg/dL Total Bilirubin 0.40 (0.2-1.3) mg/dL AST 17 (14-36) U/L ALT 14 (0-35) U/L Alkaline Phosphatase 53 (38-126) U/L Serum Total Protein 5.9 L (6.3-8.2) g/dL Albumin 3.0 L (3.5-5.0) g/dL 01/09/22 01/09/22 Range/Units 05:25 07:24 WBC (4.0-10.5) K/mm3 RBC (4.1-5.4) M/mm3 Hgb (12.0-16.0) gm/dl Hct (35-47) % MCV (78-100) fl MCH (26-32) pg MCHC (32-36) g/dl RDW (11.5-14.0) % Plt Count (150-450) K/mm3 MPV (7.5-11.0) fl Gran % (36.0-66.0) % Eos # (Auto) (0-0.5) Absolute Lymphs (auto) (1.0-4.6) Absolute Monos (auto) (0.0-1.3) Lymphocytes % (24.0-44.0) % Monocytes % (0.0-12.0) % Eosinophils % (0.00-5.0) % Basophils % (0.0-0.4) % Absolute Granulocytes (1.4-6.9) Basophils # (0-0.4) Sodium (137-145) mmol/L Potassium (3.5-5.1) mmol/L Chloride (98-107) mmol/L Carbon Dioxide (22-30) mmol/L Anion Gap (5-15) MEQ/L BUN (7-17) mg/dL Creatinine (0.52-1.04) mg/dL Estimated GFR ML/MIN Glucose (74-106) mg/dL POC Glucometer 175 H (74 to 106) mg/dL Lactic Acid 1.1 (0.4-2.0) Calcium (8.4-10.2) mg/dL Total Bilirubin (0.2-1.3) mg/dL AST (14-36) U/L ALT (0-35) U/L Alkaline Phosphatase (38-126) U/L Serum Total Protein (6.3-8.2) g/dL Albumin (3.5-5.0) g/dL Micro Results-Entire Visit: Accuchecks Date 01/09/22 Date 01/08/22 Time 07:52 Time 16:32 - Procedures and Test Procedures and Tests throughout Hospitalization: Therapy Orders & Screens 01/08/22 05:03 Oxygen Nasal Cannula 5 lpm Comment: 01/08/22 06:04 Respiratory Therapy Assessment DAILY Comment: Diagnosis: R LE cellulitis/non-healing wound 01/08/22 09:04 OT Screen per Nursing Assess ONCE Comment: Protocol Order Physician Instructions: Greater than 3 points order OT Admission Screening Reason For Exam: Triggered on Admission Diagnosis: RIGHT LOWER LEG CELLULITIS/NON-HEALING WOUND Open Wound/Cellutlitis/Pressure Ulcers: Yes Acute Fx/ORIF/Change in wt bearing status: No Severe MUSCULOSKELETAL pain: No ADL Dysfunction: No Acute CVA w/Hemiparesis/Hemiplegia: No Decreased Functional Mobility/Strength: No Sprain/Strain: No Acute Post-op Mobility Dysfunction: No Total Points: 5 PT Screen per Nursing Assess ONCE Comment: Protocol Order Physician Instructions: Greater than 3 points order PT Admission Screenin Reason For Exam: Triggered on Admission Diagnosis: RIGHT LOWER LEG CELLULITIS/NON-HEALING WOUND Open Wound/Cellutlitis/Pressure Ulcers: Yes Acute Fx/ORIF/Change in wt bearing status: No Severe MUSCULOSKELETAL pain: No ADL Dysfunction: No Acute CVA w/Hemiparesis/Hemiplegia: No Decreased Functional Mobility/Strength: No Sprain/Strain: No Acute Post-op Mobility Dysfunction: No Total Points: 5 RT Screen per Nursing Assess ONCE Comment: Protocol Order Physician Instructions: Greater than 3 points order RT Admission Screen Reason For Exam: Triggered on Admission Diagnosis: RIGHT LOWER LEG CELLULITIS/NON-HEALING WOUND Diagnosis: RIGHT LOWER LEG CELLULITIS/NON-HEALING WOUND Pneumonia: No Home O2: Yes Asthma: No CHF: No Home CPAP/BIPAP: No Home Nebs/MDI: Yes Total Points: 10 Smoking Cessation Education ONCE Comment: Diagnosis: RIGHT LOWER LEG CELLULITIS/NON-HEALING WOUND Smoking Status: Current every day smoker How long have you smoked: 20 YEARS Have you smoked in the past 12 months: No Approximately how many cigarettes per day: 1 PACK A DAY Do you dip or chew tobacco: No 01/08/22 10:26 PT Eval & Treat (MD Order) ONCE Reason for Eval:: WOUND CARE Diagnosis: RIGHT LOWER LEG CELLULITIS/NON-HEALING WOUND - Discharge Disposition: Home, Self-Care Condition: Stable Prescriptions: New Metformin HCl 500 mg [Glucophage 500 MG] 500 mg PO BIDWM #60 tablet Empagliflozin [Jardiance] 10 mg PO DAILY #30 tablet Continue Ropinirole HCl [Requip] 3 mg PO TID Ipratropium/Albuterol Sulfate [Iprat-Albut 0.5-3(2.5) mg/3 ml] 1 neb IH QID Bumetanide 2 mg PO DAILY Doxycycline Hyclate 100 mg PO BID Gabapentin 300 mg [Neurontin 300 mg] 300 mg PO TID Smz/Tmp Ds Tablet [Bactrim Ds Tablet] 1 tab PO Q12H Additional Instructions: YOU HAVE AN APPOINTMENT WITH WOUND CENTER WEDNESDAY, January AT 1100 Follow up with: DEB ESQUIVEL MD [Primary Care Provider] -
[2022-01-09] MEDS: Vibramycin 100 MG PO SCH (08:40)
[2022-01-09] MEDS: REQUIP 2MG TAB PO SCH (08:40)
[2022-01-09] MEDS: ENOXAPARIN SODIUM SQ SCH (08:41)
[2022-01-09] MEDS: BACTRIM DS TABLET PO SCH (08:41)
[2022-01-09] MEDS: BUMEX 1 MG PO SCH (08:41)
[2022-01-09] MEDS: NEURONTIN 300 MG PO SCH (08:41)
[2022-01-09] MEDS: PROTONIX 40 MG IV IV SCH (08:41)
[2022-01-09] MEDS: NYSTOP POWDER 15 GM TP SCH (08:41)
[2022-01-09] MEDS: VANCOMYCIN 1 GRAM/200 ML BAG 1 GM/200 ML PIGGYBACK IV SCH (10:51)
[2022-01-09 12:03] VITALS: BP 142/64; PULSE 81
[2022-01-09] MEDS: HUMALOG SQ PRN (12:37)
[2022-01-11 07:25] VITALS: O2SAT 93
== END 2022-01-09 13:35 | disposition home health service (06) ==
LOC: ED 03:37 → MED SURG 08:02
PROVIDERS: ADMIT Family Medicine; ATTEND Family Medicine
DX: L03.115 Cellulitis of right lower limb (principal); E11.622 Type 2 diabetes mellitus with other skin ulcer; L97.919 Non-pressure chronic ulcer of unspecified part of right lower leg with unspecified severity; I11.0 Hypertensive heart disease with heart failure; I50.9 Heart failure, unspecified; Z91.19 Patient's noncompliance with other medical treatment and regimen; Z79.899 Other long term (current) drug therapy; Z20.828 Contact with and (suspected) exposure to other viral communicable diseases; Z99.81 Dependence on supplemental oxygen; Z72.0 Tobacco use
CPT/HCPCS: 0241U; 36000; 36415; 80053; 82947; 83605; 85025; 87040; 94640; 94760; 96365; 97161; 99285; G0378; J1650; J1817; J2270; A9270-GY; J3370

== ENCOUNTER 2022-03-25 20:36 | Observation (INO) | payer MEDICARE ==
--- NOTE | 2022-03-25 21:14 | ERPHSYRPT ---
- History of Present Illness Time Seen by Provider: 03/25/22 20:50 Source: patient, EMS Exam Limitations: clinical condition Patient Subjective Stated Complaint: pt states she has been feeling short of breath since yesterday. productive cough with yellow mucous. Triage Nursing Assessment: pt arrive per ambulance. transfers to [facility] with assist of 4. pt alert and oriented, answers questions approp. pt's appearance unkempt. pt short of breath with diminished lung sounds. frequent moist productive cough. green sputum. edema +2-3 and redness noted to bilat lower ext. Physician History: This is a morbidly obese 66-year-old white female who has significant pulmonary issues including recurrent pneumonias and oxygen dependent COPD and presents via EMS with complaint of cough that began yesterday and it is productive with yellow sputum. Her symptoms of coughing and shortness of breath has worsened over this period of time. Patient received Solu-Medrol and DuoNeb in route in the ambulance prior to arrival to emergency department. Patient is disheveled and unclean and unkept. Patient has history of chronic tobacco abuse. She denies chest pain and has no documented cardiac history per her report. Patient has a history of hypertension, anxiety, CHF and peripheral vascular disease. Her primary care physician is Dr. Esquivel she has been seen several times in the emergency department for CHF and COPD exacerbation. Timing/Duration: yesterday Activities at Onset: none Severity of Dyspnea-Max: moderate Severity of Dyspnea-Current: mild Possible Cause: frequent episodes Modifying Factors: Improves With: activity, coughing Associated Symptoms: cough, wheezing Allergies/Adverse Reactions: codeine Allergy (Intermediate, Verified 03/25/22 20:59) rash, itching cefaclor [From Ceclor] Allergy (Mild, Verified 03/25/22 20:59) Rash Penicillins Allergy (Mild, Verified 03/25/22 20:59) Swelling bacitracin [From Neosporin ([id number])] Adverse Reaction (Mild, Verified 03/25/22 20:59) Itching bacitracin zinc [From Neosporin ([id number])] Adverse Reaction (Mild, Verified 03/25/22 20:59) Itching levofloxacin [From Levaquin] Adverse Reaction (Mild, Verified 03/25/22 20:59) itch neomycin sulfate [From Neosporin ([id number])] Adverse Reaction (Mild, Verified 03/25/22 20:59) itch polymyxin B [From Neosporin ([id number])] Adverse Reaction (Mild, Verified 03/25/22 20:59) Itching Home Medications: Ropinirole HCl [Requip] 3 mg PO TID 03/05/14 [History] Ipratropium/Albuterol Sulfate [Iprat-Albut 0.5-3(2.5) mg/3 ml] 1 neb IH QID 10/21/21 [History] Bumetanide 2 mg PO DAILY 01/08/22 [History] Doxycycline Hyclate 100 mg PO BID 01/08/22 [History] Gabapentin [Neurontin ] 300 mg PO TID 01/08/22 [History] Smz/Tmp Ds Tablet [Bactrim Ds Tablet] 1 tab PO Q12H 01/08/22 [History] Hx Tetanus, Diphtheria Vaccination/Date Given: No Hx Influenza Vaccination/Date Given: No Hx Pneumococcal Vaccination/Date Given: No Immunizations Up to Date: No Travel Risk - International Travel Have you traveled outside of the country in past 3 weeks: No - Coronavirus Screening Are you exhibiting any of the following symptoms?: No Close contact with a COVID-19 positive Pt in past 14-21 Days: No - Vaccine Status Have you recieved a Covid-19 vaccination: No - Review of Systems Constitutional: No Symptoms Eyes: No Symptoms Ears, Nose, & Throat: No Symptoms Respiratory: Cough, Dyspnea Cardiac: No Symptoms Abdominal/Gastrointestinal: No Symptoms Genitourinary Symptoms: No Symptoms Musculoskeletal: No Symptoms Skin: No Symptoms Neurological: No Symptoms Psychological: No Symptoms Endocrine: No Symptoms Hematologic/Lymphatic: No Symptoms Immunological/Allergic: No Symptoms All Other Systems: Reviewed and Negative - Past Medical History Pertinent Past Medical History: Yes Neurological History: No Pertinent History ENT History: No Pertinent History Cardiac History: Congestive Heart Failure, Hypertension, Peripheral Vascular Disease Respiratory History: COPD, Emphysema Endocrine Medical History: No Pertinent History Musculoskeletal History: Arthritis, Fibromyalgia GI Medical History: No Pertinent History History: Other Psycho-Social History: No Pertinent History Female Reproductive Disorders: No Pertinent History Other Medical History: Stress Incontinence - Past Surgical History Past Surgical History: Yes Neuro Surgical History: No Pertinent History Cardiac: No Pertinent History Respiratory: No Pertinent History Gastrointestinal: Cholecystectomy Genitourinary: No Pertinent History Musculoskeletal: No Pertinent History Female Surgical History: No Pertinent History, Tubal Ligation - Social History Smoking Status: Current every day smoker How long have you smoked: 25 years Exposure to second hand smoke: Yes Drug Use: none Patient Lives Alone: No Significant Family History: no pertinent family hx - Nursing Vital Signs Nursing Vital Signs: Initial Vital Signs Temperature 98.5 F 03/25/22 20:46 Pulse Rate 103 H 03/25/22 20:46 Respiratory Rate 28 H 03/25/22 20:46 Blood Pressure 193/65 03/25/22 20:46 O2 Sat by Pulse Oximetry 94 L 03/25/22 20:46 Pain Scale Pain Intensity 0 - Physical Exam General Appearance: mild distress, alert, anxiety, obese Eye Exam: PERRL/EOMI, eyes nml inspection Ears, Nose, Throat Exam: hearing grossly normal, normal pharynx Neck Exam: normal inspection, non-tender, supple, full range of motion Respiratory Exam: normal breath sounds, airway intact, wheezing, No chest tenderness, No respiratory distress Cardiovascular/Chest Exam: normal heart sounds, regular rate/rhythm Abdominal/Gastrointestinal Exam: soft, normal bowel sounds, No tenderness Rectal Exam: not done Extremity Exam: non-tender, normal range of motion, no calf tenderness, no pedal edema Skin Exam: other (Patient's feet are filthy. There are black.) Lymphatic Exam: No adenopathy SpO2 Interpretation: borderline oxygenation SpO2: 94 O2 Delivery: Nasal Cannula (4 liters oxygen nasal cannula) Ordered Tests: Active Orders 24 hr Category Date Time Status Cath [Catheter-Coamo Summers] STAT Care 03/25/22 22:18 Active EKG-ER Only STAT Care 03/25/22 21:14 Active IV Insertion STAT Care 03/25/22 21:14 Active Oxygen-ED Only Nasal Cannula 6 lpm Care 03/25/22 21:37 Active Pulse Oximetry (ED) STAT Care 03/25/22 21:14 Active CHEST 1 VIEW (PORTABLE) Stat Exams 03/25/22 21:15 Taken CHEST WITH CONTRAST [CT] Stat Exams 03/25/22 23:04 Taken ABG [ARTERIAL BLOOD GASES] Routine Lab 03/25/22 21:45 Results BLOOD CULTURE Stat Lab 03/25/22 21:35 Received CBC W DIFF Stat Lab 03/25/22 21:30 Completed CMP Routine Lab 03/25/22 21:30 Completed CULTURE,SPUTUM Stat Lab 03/25/22 21:20 Received D-DIMER QUANTITATIVE Stat Lab 03/25/22 21:30 Completed NT PRO BNP Stat Lab 03/25/22 21:30 Completed TROPONIN Q3H Lab 03/25/22 21:30 Completed TROPONIN Q3H Lab 03/26/22 00:30 Completed TROPONIN Q3H Lab 03/26/22 03:30 Ordered TROPONIN Q3H Lab 03/26/22 06:30 Ordered TROPONIN Q3H Lab 03/26/22 09:30 Ordered UA W/RFX CULTURE Stat Lab 03/25/22 22:31 Completed Respiratory Therapy Assessment DAILY RT 03/25/22 21:35 Active Transfer Order Routine Transfer 03/26/22 Ordered Medication Summary Discontinued Medications Generic Name Dose Route Start Last Admin Trade Name Freq PRN Reason Stop Dose Admin Albuterol Sulfate 2.5 mg 03/25/22 21:29 03/25/22 21:36 Albuterol Sulfate 2.5 Mg/3 Ml Neb IH 03/25/22 21:30 2.5 mg STAT ONE Administration Albuterol Sulfate Confirm 03/25/22 21:33 Albuterol Solution 2.5 Mg/0.5 Ml Ud Solution Administered 03/25/22 21:34 Dose 2.5 mg IH .STK-MED ONE Albuterol Sulfate Confirm 03/25/22 21:33 Albuterol Sulfate 2.5 Mg/3 Ml Neb Administered 03/25/22 21:34 Dose 2.5 mg IH .STK-MED ONE Levofloxacin/Dextrose 500 mg in 100 mls @ 100 mls/hr 03/25/22 22:33 03/25/22 22:49 Levofloxacin 500mg/100ml D5w IV 03/25/22 23:32 Not Given STAT STA Azithromycin 500 mg in 250 mls @ 250 mls/hr 03/25/22 22:42 03/25/22 23:58 Zithromax 500 Mg/ 250 Ml Nacl Premix IV 03/25/22 23:41 Infused STAT STA Infusion Sodium Chloride 500 mls @ 500 mls/hr 03/25/22 22:45 03/25/22 23:58 Sodium Chloride 0.9% 500 Ml IV 03/25/22 23:44 Infused .Q1H ONE Infusion Azithromycin Confirm 03/25/22 22:46 Zithromax 500 Mg/ 250 Ml Nacl Premix Administered 03/25/22 22:47 Dose 500 mg in 250 mls @ ud IV .STK-MED ONE Sodium Chloride Confirm 03/25/22 22:46 Sodium Chloride 0.9% 500 Ml Administered 03/25/22 22:47 Dose 500 mls @ ud IV .STK-MED ONE Ropinirole HCl 3 mg 03/25/22 22:34 03/25/22 22:48 Ropinirole Hcl 2 Mg Tablet PO 03/25/22 22:35 3 mg STAT ONE Administration Lab/Rad Data: Laboratory Result Diagrams 03/25/22 21:30 03/25/22 21:30 Laboratory Results 03/26/22 03/25/22 03/25/22 Range/Units 00:30 22:31 21:45 WBC (4.0-10.5) x10^3/uL RBC (4.1-5.4) x10^6/uL Hgb (12.0-16.0) g/dL Hct (35-47) % MCV (78-100) fL MCH (26-32) pg MCHC (32-36) g/dL RDW (11.5-14.0) % Plt Count (150-450) x10^3/uL MPV (7.5-11.0) fL Gran % (36.0-66.0) % Immature Gran % (Auto) (0.00-0.4) % Nucleat RBC Rel Count (0.00-0.1) % Eos # (Auto) (0-0.5) x10^3/uL Immature Gran # (Auto) (0.00-0.03) x10^3u/L Absolute Lymphs (auto) (1.0-4.6) x10^3/uL Absolute Monos (auto) (0.0-1.3) x10^3/uL Absolute Nucleated RBC (0.00-0.01) x10^3u/L Lymphocytes % (24.0-44.0) % Monocytes % (0.0-12.0) % Eosinophils % (0.00-5.0) % Basophils % (0.0-0.4) % Absolute Granulocytes (1.4-6.9) x10^3/uL Basophils # (0-0.4) x10^3/uL D-Dimer (0.0-0.50) mg/L Puncture Site Pending pCO2 86 H* (35-45) mmHg pO2 76 (75-100) mmHg Base Excess 18.4 H (-2.0-2.0) O2 Saturation 94.4 (94-100) g/dF ABG pH 7.36 (7.35-7.45) ABG HCO3 48.6 H* (22-28) ABG O2 Sat (Measured) 97.1 (95-100) % Jim Test Pending A-a Gradient 130 a/A Ratio 0.37 Hemoglobin 12.6 Carboxyhemoglobin 2.1 (0.0-6.9) % THgb Methemoglobin 0.7 L (1.4-1.5) % Temperature 37.0 C POC O2 Flow Rate 44 % Sodium (137-145) mmol/L Potassium 3.8 (3.5-5.1) mmol/L Chloride (98-107) mmol/L Carbon Dioxide (22-30) mmol/L Anion Gap (5-15) MEQ/L BUN (7-17) mg/dL Creatinine (0.52-1.04) mg/dL Estimated GFR ML/MIN Glucose (74-106) mg/dL Calcium (8.4-10.2) mg/dL Total Bilirubin (0.2-1.3) mg/dL AST (14-36) U/L ALT (0-35) U/L Alkaline Phosphatase (38-126) U/L Troponin I 0.014 (0.000-0.034) ng/mL NT-Pro-B Natriuret Pep (0-900) pg/mL Serum Total Protein (6.3-8.2) g/dL Albumin (3.5-5.0) g/dL Urinalys Dipstick Clnc MAIN LAB Urine Color YELLOW (YELLOW) Urine Appearance CLEAR (CLEAR) Urine pH 6.5 (5-6) Ur Specific [place] >=1.030 (1.005-1.025) POC Urine Protein Conf >=300 (Negative) Urine Ketones NEGATIVE (NEGATIVE) Urine Nitrite NEGATIVE (NEGATIVE) Urine Bilirubin NEGATIVE (NEGATIVE) Urine Urobilinogen 1 (0-1) mg/dL Urine Leukocytes NEGATIVE (NEGATIVE) Urine WBC (Auto) 0-2 (0-5) /HPF Urine RBC (Auto) 0-2 (0-2) /HPF U Epithel Cells (Auto) RARE (FEW) /HPF Urine Bacteria (Auto) NONE (NEGATIVE) /HPF Urine RBC TRACE-INTACT (0-5) Kenton/ul Other Casts (Auto) NEGATIVE (NEGATIVE) /LPF Urine Mucus (Auto) SLIGHT (NEGATIVE) /HPF Ur Culture Indicated? NO Urine Glucose 100 (NEGATIVE) mg/dL Influenza Type A Ag (NEGATIVE) Influenza Type B Ag (NEGATIVE) RSV (PCR) (Negative) SARS-CoV-2 (PCR) (NEGATIVE) Group A Strep Antibody (NEGATIVE) Slides for Path Review 03/25/22 03/25/22 03/25/22 Range/Units 21:30 21:30 21:30 WBC (4.0-10.5) x10^3/uL RBC (4.1-5.4) x10^6/uL Hgb (12.0-16.0) g/dL Hct (35-47) % MCV (78-100) fL MCH (26-32) pg MCHC (32-36) g/dL RDW (11.5-14.0) % Plt Count (150-450) x10^3/uL MPV (7.5-11.0) fL Gran % (36.0-66.0) % Immature Gran % (Auto) (0.00-0.4) % Nucleat RBC Rel Count (0.00-0.1) % Eos # (Auto) (0-0.5) x10^3/uL Immature Gran # (Auto) (0.00-0.03) x10^3u/L Absolute Lymphs (auto) (1.0-4.6) x10^3/uL Absolute Monos (auto) (0.0-1.3) x10^3/uL Absolute Nucleated RBC (0.00-0.01) x10^3u/L Lymphocytes % (24.0-44.0) % Monocytes % (0.0-12.0) % Eosinophils % (0.00-5.0) % Basophils % (0.0-0.4) % Absolute Granulocytes (1.4-6.9) x10^3/uL Basophils # (0-0.4) x10^3/uL D-Dimer (0.0-0.50) mg/L Puncture Site pCO2 (35-45) mmHg pO2 (75-100) mmHg Base Excess (-2.0-2.0) O2 Saturation (94-100) g/dF ABG pH (7.35-7.45) ABG HCO3 (22-28) ABG O2 Sat (Measured) (95-100) % Jim Test A-a Gradient a/A Ratio Hemoglobin Carboxyhemoglobin (0.0-6.9) % THgb Methemoglobin (1.4-1.5) % Temperature C POC O2 Flow Rate % Sodium 142 (137-145) mmol/L Potassium 3.7 (3.5-5.1) mmol/L Chloride 93 L (98-107) mmol/L Carbon Dioxide 41 H (22-30) mmol/L Anion Gap 11.7 (5-15) MEQ/L BUN 18 H (7-17) mg/dL Creatinine 0.71 (0.52-1.04) mg/dL Estimated GFR > 60.0 ML/MIN Glucose 173 H (74-106) mg/dL Calcium 9.9 (8.4-10.2) mg/dL Total Bilirubin 0.40 (0.2-1.3) mg/dL AST 31 (14-36) U/L ALT 32 (0-35) U/L Alkaline Phosphatase 94 (38-126) U/L Troponin I 0.017 (0.000-0.034) ng/mL NT-Pro-B Natriuret Pep (0-900) pg/mL Serum Total Protein 7.9 (6.3-8.2) g/dL Albumin 3.7 (3.5-5.0) g/dL Urinalys Dipstick Clnc Urine Color (YELLOW) Urine Appearance (CLEAR) Urine pH (5-6) Ur Specific [place] (1.005-1.025) POC Urine Protein Conf (Negative) Urine Ketones (NEGATIVE) Urine Nitrite (NEGATIVE) Urine Bilirubin (NEGATIVE) Urine Urobilinogen (0-1) mg/dL Urine Leukocytes (NEGATIVE) Urine WBC (Auto) (0-5) /HPF Urine RBC (Auto) (0-2) /HPF U Epithel Cells (Auto) (FEW) /HPF Urine Bacteria (Auto) (NEGATIVE) /HPF Urine RBC (0-5) Kenton/ul Other Casts (Auto) (NEGATIVE) /LPF Urine Mucus (Auto) (NEGATIVE) /HPF Ur Culture Indicated? Urine Glucose (NEGATIVE) mg/dL Influenza Type A Ag NEGATIVE (NEGATIVE) Influenza Type B Ag NEGATIVE (NEGATIVE) RSV (PCR) NEGATIVE (Negative) SARS-CoV-2 (PCR) NEGATIVE (NEGATIVE) Group A Strep Antibody (NEGATIVE) Slides for Path Review 03/25/22 03/25/22 03/25/22 Range/Units 21:30 21:30 21:30 WBC (4.0-10.5) x10^3/uL RBC (4.1-5.4) x10^6/uL Hgb (12.0-16.0) g/dL Hct (35-47) % MCV (78-100) fL MCH (26-32) pg MCHC (32-36) g/dL RDW (11.5-14.0) % Plt Count (150-450) x10^3/uL MPV (7.5-11.0) fL Gran % (36.0-66.0) % Immature Gran % (Auto) (0.00-0.4) % Nucleat RBC Rel Count (0.00-0.1) % Eos # (Auto) (0-0.5) x10^3/uL Immature Gran # (Auto) (0.00-0.03) x10^3u/L Absolute Lymphs (auto) (1.0-4.6) x10^3/uL Absolute Monos (auto) (0.0-1.3) x10^3/uL Absolute Nucleated RBC (0.00-0.01) x10^3u/L Lymphocytes % (24.0-44.0) % Monocytes % (0.0-12.0) % Eosinophils % (0.00-5.0) % Basophils % (0.0-0.4) % Absolute Granulocytes (1.4-6.9) x10^3/uL Basophils # (0-0.4) x10^3/uL D-Dimer 0.64 H* (0.0-0.50) mg/L Puncture Site pCO2 (35-45) mmHg pO2 (75-100) mmHg Base Excess (-2.0-2.0) O2 Saturation (94-100) g/dF ABG pH (7.35-7.45) ABG HCO3 (22-28) ABG O2 Sat (Measured) (95-100) % Jim Test A-a Gradient a/A Ratio Hemoglobin Carboxyhemoglobin (0.0-6.9) % THgb Methemoglobin (1.4-1.5) % Temperature C POC O2 Flow Rate % Sodium (137-145) mmol/L Potassium (3.5-5.1) mmol/L Chloride (98-107) mmol/L Carbon Dioxide (22-30) mmol/L Anion Gap (5-15) MEQ/L BUN (7-17) mg/dL Creatinine (0.52-1.04) mg/dL Estimated GFR ML/MIN Glucose (74-106) mg/dL Calcium (8.4-10.2) mg/dL Total Bilirubin (0.2-1.3) mg/dL AST (14-36) U/L ALT (0-35) U/L Alkaline Phosphatase (38-126) U/L Troponin I (0.000-0.034) ng/mL NT-Pro-B Natriuret Pep 307 (0-900) pg/mL Serum Total Protein (6.3-8.2) g/dL Albumin (3.5-5.0) g/dL Urinalys Dipstick Clnc Urine Color (YELLOW) Urine Appearance (CLEAR) Urine pH (5-6) Ur Specific [place] (1.005-1.025) POC Urine Protein Conf (Negative) Urine Ketones (NEGATIVE) Urine Nitrite (NEGATIVE) Urine Bilirubin (NEGATIVE) Urine Urobilinogen (0-1) mg/dL Urine Leukocytes (NEGATIVE) Urine WBC (Auto) (0-5) /HPF Urine RBC (Auto) (0-2) /HPF U Epithel Cells (Auto) (FEW) /HPF Urine Bacteria (Auto) (NEGATIVE) /HPF Urine RBC (0-5) Kenton/ul Other Casts (Auto) (NEGATIVE) /LPF Urine Mucus (Auto) (NEGATIVE) /HPF Ur Culture Indicated? Urine Glucose (NEGATIVE) mg/dL Influenza Type A Ag (NEGATIVE) Influenza Type B Ag (NEGATIVE) RSV (PCR) (Negative) SARS-CoV-2 (PCR) (NEGATIVE) Group A Strep Antibody NOT DETECTED (NEGATIVE) Slides for Path Review 03/25/22 Range/Units 21:30 WBC 6.9 (4.0-10.5) x10^3/uL RBC 4.58 (4.1-5.4) x10^6/uL Hgb 13.1 (12.0-16.0) g/dL Hct 46.2 (35-47) % MCV 100.9 H (78-100) fL MCH 28.6 (26-32) pg MCHC 28.4 L (32-36) g/dL RDW 14.2 H (11.5-14.0) % Plt Count 257 (150-450) x10^3/uL MPV 10.0 (7.5-11.0) fL Gran % 72.7 H (36.0-66.0) % Immature Gran % (Auto) 0.9 H (0.00-0.4) % Nucleat RBC Rel Count 0.0 (0.00-0.1) % Eos # (Auto) 0.05 (0-0.5) x10^3/uL Immature Gran # (Auto) 0.06 H (0.00-0.03) x10^3u/L Absolute Lymphs (auto) 0.95 L (1.0-4.6) x10^3/uL Absolute Monos (auto) 0.77 (0.0-1.3) x10^3/uL Absolute Nucleated RBC 0.00 (0.00-0.01) x10^3u/L Lymphocytes % 13.9 L (24.0-44.0) % Monocytes % 11.2 (0.0-12.0) % Eosinophils % 0.7 (0.00-5.0) % Basophils % 0.6 (0.0-0.4) % Absolute Granulocytes 4.98 (1.4-6.9) x10^3/uL Basophils # 0.04 (0-0.4) x10^3/uL D-Dimer (0.0-0.50) mg/L Puncture Site pCO2 (35-45) mmHg pO2 (75-100) mmHg Base Excess (-2.0-2.0) O2 Saturation (94-100) g/dF ABG pH (7.35-7.45) ABG HCO3 (22-28) ABG O2 Sat (Measured) (95-100) % Jim Test A-a Gradient a/A Ratio Hemoglobin Carboxyhemoglobin (0.0-6.9) % THgb Methemoglobin (1.4-1.5) % Temperature C POC O2 Flow Rate % Sodium (137-145) mmol/L Potassium (3.5-5.1) mmol/L Chloride (98-107) mmol/L Carbon Dioxide (22-30) mmol/L Anion Gap (5-15) MEQ/L BUN (7-17) mg/dL Creatinine (0.52-1.04) mg/dL Estimated GFR ML/MIN Glucose (74-106) mg/dL Calcium (8.4-10.2) mg/dL Total Bilirubin (0.2-1.3) mg/dL AST (14-36) U/L ALT (0-35) U/L Alkaline Phosphatase (38-126) U/L Troponin I (0.000-0.034) ng/mL NT-Pro-B Natriuret Pep (0-900) pg/mL Serum Total Protein (6.3-8.2) g/dL Albumin (3.5-5.0) g/dL Urinalys Dipstick Clnc Urine Color (YELLOW) Urine Appearance (CLEAR) Urine pH (5-6) Ur Specific [place] (1.005-1.025) POC Urine Protein Conf (Negative) Urine Ketones (NEGATIVE) Urine Nitrite (NEGATIVE) Urine Bilirubin (NEGATIVE) Urine Urobilinogen (0-1) mg/dL Urine Leukocytes (NEGATIVE) Urine WBC (Auto) (0-5) /HPF Urine RBC (Auto) (0-2) /HPF U Epithel Cells (Auto) (FEW) /HPF Urine Bacteria (Auto) (NEGATIVE) /HPF Urine RBC (0-5) Kenton/ul Other Casts (Auto) (NEGATIVE) /LPF Urine Mucus (Auto) (NEGATIVE) /HPF Ur Culture Indicated? Urine Glucose (NEGATIVE) mg/dL Influenza Type A Ag (NEGATIVE) Influenza Type B Ag (NEGATIVE) RSV (PCR) (Negative) SARS-CoV-2 (PCR) (NEGATIVE) Group A Strep Antibody (NEGATIVE) Slides for Path Review YES - Progress Progress: improved, re-examined Air Movement: fair Progress Note: 03/26/22 01:11 Chest x-ray shows questionable right pulmonary basilar infiltrate when compared to chest x-ray performed on 10/21/2021. CTA of the chest shows bibasilar atelectasis versus infiltrate. No pulmonary embolus. There is presence of emphysematous changes. 03/26/22 01:13 Patient refusing BiPAP as recommended by respiratory therapy. Blood Culture(s) Obtained: Yes Antibiotics given: Yes Discussed with : Martah Counseled pt/family regarding: lab results, diagnosis, rad results - Departure Departure Disposition: In-patient Admission Clinical Impression: Hypoxia, Acute respiratory failure with hypoxia and hypercarbia, Pneumonia Condition: Fair Critical Care Time: Yes Critical Care Time(excluding separately billable procedures): Critical 30-74 mins (30 minutes) Referrals: DEB ESQUIVEL MD [Primary Care Provider] - Follow up/PCP as directed
[2022-03-25] MEDS ORDERED: PROVENTIL 2.5 MG/3 ML NEB IH ONE ×2 (21:29→21:33)
[2022-03-25] MEDS ORDERED: PROVENTIL Solution 2.5 MG/0.5 ML IH ONE (21:33)
[2022-03-25 21:53] LABS: Absolute Neutrophil Ct (ANC) 4.98 x10^3/uL (1.4-6.9); Basophil (Absolute #) 0.04 x10^3/uL (0-0.4); Eosinophil % 0.7 % (0.00-5.0); Eosinophil (Absolute #) 0.05 x10^3/uL (0-0.5); Hematocrit 46.2 % (35-47); Hemoglobin 13.1 g/dL (12.0-16.0); Lymphocyte (Absolute #) 0.95 x10^3/uL (1.0-4.6); Lymphocytes % 13.9 % (24.0-44.0); Mean Cell Volume 100.9 fL (78-100); Mean Corpuscular Hemoglobin 28.6 pg (26-32); Mean Corpuscular Hgb Concent. 28.4 g/dL (32-36); Monocyte (Absolute #) 0.77 x10^3/uL (0.0-1.3); Monocytes % 11.2 % (0.0-12.0); Neutrophil % 72.7 % (36.0-66.0); Platelet Count 257 x10^3/uL (150-450); Red Blood Count 4.58 x10^6/uL (4.1-5.4); Red Cell Distribution Width 14.2 % (11.5-14.0); White Blood Count 6.9 x10^3/uL (4.0-10.5)
[2022-03-25 21:59] LABS: A-aADO2 130; ABG HEMOGLOBIN 12.6; ABG POTASSIUM 3.8 (3.5-5.1); ARTERIAL BLD GAS O2 SATURATION 97.1 % (95-100); ARTERIAL BLOOD GAS BASE EXCESS 18.4 (-2.0-2.0); ARTERIAL BLOOD GAS FIO2 44 %; ARTERIAL BLOOD GAS PO2 76 mmHg (75-100); ARTERIAL BLOOD GAS pH 7.36 (7.35-7.45); CARBOXYHEMOGLOBIN 2.1 % THgb (0.0-6.9); HCO3- 48.6 (22-28); HGB O2 SAT 94.4 g/dF (94-100); Methhemoglobin 0.7 % (1.4-1.5)
[2022-03-25 22:01] LABS: ARTERIAL BLOOD GAS PCO2 86 mmHg (35-45)
[2022-03-25 22:31] LABS: INFLUENZA A NEGATIVE (NEGATIVE); INFLUENZA B NEGATIVE (NEGATIVE); RESPIRATORY SYNCTIAL VIRUS NEGATIVE (Negative); SARS-CoV-2 Xpert Express NEGATIVE (NEGATIVE)
[2022-03-25] MEDS ORDERED: Levofloxacin 500MG/100ML D5W 500 MG/100 ML BAG IV STA (22:33)
[2022-03-25] MEDS ORDERED: REQUIP 2MG TAB PO ONE (22:34)
[2022-03-25 22:37] LABS: Appearance CLEAR (CLEAR); Bilirubin NEGATIVE (NEGATIVE); Dipstick done @ ? MAIN LAB; Glucose 100 mg/dL (NEGATIVE); Ketones NEGATIVE (NEGATIVE); Nitrite NEGATIVE (NEGATIVE); Ph 6.5 (5-6); Protein,Urine Dip >=300 (Negative); RBC TRACE-INTACT Ery/ul (0-5); Specific Gravity >=1.030 (1.005-1.025); Urobilinogen 1 mg/dL (0-1)
[2022-03-25 22:38] LABS: ALBUMIN 3.7 g/dL (3.5-5.0); ALKALINE PHOSPHATASE 94 U/L (38-126); BLOOD UREA NITROGEN 18 mg/dL (7-17); CHLORIDE 93 mmol/L (98-107); Calcium 9.9 mg/dL (8.4-10.2); Creatinine 1 0.71 mg/dL (0.52-1.04); EST GLOMERULAR FILTRATION RATE > 60.0 ML/MIN; Glucose 173 mg/dL (74-106); Potassium 3.7 mmol/L (3.5-5.1); SGOT/AST 31 U/L (14-36); SGPT/ALT 32 U/L (0-35); SODIUM 142 mmol/L (137-145); Total Protein 7.9 g/dL (6.3-8.2)
[2022-03-25 22:41] LABS: Epithelial Cells RARE /HPF (FEW); Mucus SLIGHT /HPF (NEGATIVE); RBC 0-2 /HPF (0-2); Urine Cultured Indicated? NO; WBC 0-2 /HPF (0-5)
[2022-03-25] MEDS ORDERED: Zithromax 500 MG/ 250 ML NaCl Premix 500 MG/250 ML IVPB IV STA (22:42)
[2022-03-25] MEDS ORDERED: Sodium Chloride 0.9% 500 ML 500 ML IV ONE ×2 (22:45→22:46)
[2022-03-25] MEDS ORDERED: Zithromax 500 MG/ 250 ML NaCl Premix 500 MG/250 ML IVPB IV ONE (22:46)
[2022-03-25 22:50] LABS: Carbon Dioxide 41 mmol/L (22-30)
[2022-03-25 23:01] LABS: Slide Review 1 YES
[2022-03-25 23:12] LABS: ANION GAP 11.7 MEQ/L (5-15)
[2022-03-26] MEDS ORDERED: Zofran 4 MG/2 ML VIAL IV PRN (02:24)
[2022-03-26] MEDS ORDERED: TYLENOL 325 MG PO PRN (02:24)
[2022-03-26] MEDS ORDERED: Nicoderm CQ 21 MG TOP SCH ×2 (02:24→22:00)
[2022-03-26 02:56] LABS: A-aADO2 106; ABG HEMOGLOBIN 12.5; ABG POTASSIUM 4.2 (3.5-5.1); ARTERIAL BLD GAS O2 SATURATION 94.9 % (95-100); ARTERIAL BLOOD GAS FIO2 44 %; ARTERIAL BLOOD GAS PO2 73 mmHg (75-100); CARBOXYHEMOGLOBIN 1.6 % THgb (0.0-6.9); HCO3- 47.4 (22-28); HGB O2 SAT 92.4 g/dF (94-100)
[2022-03-26 02:57] LABS: ABG SITE L Radial; ALLEN TEST OK? Yes; ARTERIAL BLOOD GAS PCO2 108 mmHg (35-45); ARTERIAL BLOOD GAS pH 7.25 (7.35-7.45)
[2022-03-26 03:13] LABS: ALLEN TEST OK? Yes
[2022-03-26] MEDS ORDERED: DUONEB 0.5-3 MG/3 ml Neb IH ONE (03:28)
[2022-03-26] MEDS: DUONEB 0.5-3 MG/3 ml Neb IH SCH ×2 (03:29→07:08)
[2022-03-26 04:18] LABS: Hematocrit 40.9 % (35-47); Hemoglobin 11.7 g/dL (12.0-16.0); Mean Cell Volume 100.2 fL (78-100); Mean Corpuscular Hemoglobin 28.7 pg (26-32); Mean Corpuscular Hgb Concent. 28.6 g/dL (32-36); Mean Platelet Volume 9.9 fL (7.5-11.0); Platelet Count 236 x10^3/uL (150-450); Red Blood Count 4.08 x10^6/uL (4.1-5.4); Red Cell Distribution Width 14.3 % (11.5-14.0); White Blood Count 7.2 x10^3/uL (4.0-10.5)
[2022-03-26 04:47] LABS: ALBUMIN 2.9 g/dL (3.5-5.0); ALKALINE PHOSPHATASE 85 U/L (38-126); BLOOD UREA NITROGEN 20 mg/dL (7-17); CHLORIDE 95 mmol/L (98-107); Calcium 8.9 mg/dL (8.4-10.2); Creatinine 1 0.67 mg/dL (0.52-1.04); EST GLOMERULAR FILTRATION RATE > 60.0 ML/MIN; Glucose 215 mg/dL (74-106); Potassium 4.4 mmol/L (3.5-5.1); SGOT/AST 40 U/L (14-36); SGPT/ALT 37 U/L (0-35); SODIUM 142 mmol/L (137-145); Total Protein 6.4 g/dL (6.3-8.2)
[2022-03-26 04:53] LABS: Carbon Dioxide 41 mmol/L (22-30)
[2022-03-26 04:54] LABS: ANION GAP 10.4 MEQ/L (5-15)
[2022-03-26 05:24] LABS: BAND 15 % (0.0-2.0); Lymphocytes 10 % (24-44); Monocyte 8 % (0.0-12.0); Platelet Estimate NORMAL (NORMAL); Total Cells Counted 100
[2022-03-26] MEDS ORDERED: solu-MEDROL 125 MG, Sterile H2O 10 ml 2 ML IV SCH ×2 (06:00)
[2022-03-26] MEDS ORDERED: solu-MEDROL ONE (06:17)
[2022-03-26] MEDS ORDERED: Sterile H2O 10 ml IJ ONE (06:21)
[2022-03-26 07:51] VITALS: BP 161/83; PULSE 99
[2022-03-26 08:23] VITALS: O2SAT 92
--- NOTE | 2022-03-26 08:46 | XRAY ---
Indication: Short of breath. Elevated d-dimer. Multiple contiguous axial images obtained through the chest using 100 cc Isovue 370 contrast and PE protocol. Comparison: November 01, 2020 Good opacification of the pulmonary arteries. However there is again diffuse respiration artifact limiting evaluation for pulmonary embolus. No obvious pulmonary embolus. Heart remains enlarged. Aorta again minimally arteriosclerotic without aneurysm/dissection. Stable small right hilar calcified nodes. No pathologic mediastinal/hilar lymphadenopathy. Lungs again demonstrate moderate bibasilar subsegmental atelectasis/scarring and a few bilateral calcified granulomas. No suspicious pulmonary mass, infiltrate, effusion, or pneumothorax. Bony thorax intact again with mild degenerative changes throughout the spine. Limited upper abdomen again demonstrates fatty liver, small left adrenal adenoma, and cholecystectomy clips. Partially visualized 1 cm bilateral renal cortical cysts not previously imaged. Impression: 1. Again diffuse respiration artifact limits evaluation for pulmonary embolus. No obvious pulmonary embolus. 2. Again cardiomegaly without CHF. 3. Chronic findings including bibasilar subsegmental atelectasis/scarring, degenerative spondylosis, fatty liver, left adrenal adenoma, bilateral renal cysts, and old granulomatous disease. Comment: Preliminary interpretation made by [facility]. There is no mention or diagnostic interpretation for pulmonary embolus.
--- NOTE | 2022-03-26 08:48 | XRAY ---
Indication: Short of breath. Comparison: October 21, 2021. Portable chest now demonstrates diffuse bilateral hazy interstitial alveolar opacities. Stable tiny calcified granulomas and lingula subsegmental atelectasis/scarring. Heart borderline enlarged. Bony thorax intact.
[2022-03-26] MEDS ORDERED: Zithromax 500 MG/ 250 ML NaCl Premix 500 MG/250 ML IVPB IV SCH (22:00)
== END 2022-03-26 09:32 | disposition short-term general hospital (02) ==
LOC: ED 20:36 → INTOOBSV 03-26 02:23 → MED SURG 03-26 02:23
PROVIDERS: ADMIT Family Medicine; ATTEND Family Medicine
DX: J44.1 Chronic obstructive pulmonary disease with (acute) exacerbation (principal); I10 Essential (primary) hypertension; F41.9 Anxiety disorder, unspecified; Z72.0 Tobacco use; Z79.899 Other long term (current) drug therapy; Z20.828 Contact with and (suspected) exposure to other viral communicable diseases; Z99.81 Dependence on supplemental oxygen
CPT/HCPCS: 0241U; 36000; 36415; 36600; 51702; 71045; 71260; 80053; 81015; 82375; 82803; 82947; 83880; 84484; 85025; 85379; 87040; 87070; 87651; 93005; 94002; 94640; 94760; 94762; 96360; 96365; 99285; 99291; G0378; J0456; J2930; J7609; A9270-GY

== ENCOUNTER 2022-03-30 17:24 | Observation (INO) | payer MEDICARE ==
--- NOTE | 2022-03-30 18:40 | ERPHSYRPT ---
- History of Present Illness Time Seen by Provider: 03/30/22 17:50 Source: patient Exam Limitations: no limitations Patient Subjective Stated Complaint: PT STATES "IM NOT ABLE TO TAKE CARE OF MYSELF AT HOME" Triage Nursing Assessment: PT WAS DISCHARGED FROM [facility] 03/30/22 FOR HYPOXIA/PNEUMONIA. PT REPORTS ONCE SHE GOT HOME THAT SHE WAS UNABLE TO PROVIDE CARE FOR SELF AND PT NOT ABLE TO EITHER. EASY RESPIRATIONS ON 6L PER NC WITH SATS AT 97%. Physician History: This is a 66-year-old obese white female patient of Dr. Esquivel who was seen here this emergency department at [facility] emergency department on 03/25/2022 and was diagnosed with hypoxia and pneumonia. She was admitted into the hospital then transferred to [facility] in [facility] where she was discharged to home today. Patient is not oxygen dependent COPD patient who prior to this recent hospitalization, was using 5 L of oxygen via nasal cannula daily. They had increased it to 6 L. Upon arrival to the emergency department, the patient's oxygen saturation level on 6 L is 97%. Patient has no chest pain no abdominal pain she is breathing well and is not labored. Her concern, as is her 's concern, if she is unable to take care of herself. She did not have discharge planning to make arrangements for home health or retirement placement prior to her discharge today. Patient has a history of diabetes, hypertension, chronic right pretibial leg ulcer, CHF, peripheral vascular disease, arthritis and fibromyalgia. Patient currently smokes cigarettes daily. Timing/Duration: other (Chronic) Severity: mild Associated Symptoms: denies symptoms Allergies/Adverse Reactions: codeine Allergy (Intermediate, Verified 03/30/22 17:27) rash, itching cefaclor [From Ceclor] Allergy (Mild, Verified 03/30/22 17:27) Rash Penicillins Allergy (Mild, Verified 03/30/22 17:27) Swelling bacitracin [From Neosporin ([id number])] Adverse Reaction (Mild, Verified 03/30/22 17:27) Itching bacitracin zinc [From Neosporin ([id number])] Adverse Reaction (Mild, Verified 03/30/22 17:27) Itching levofloxacin [From Levaquin] Adverse Reaction (Mild, Verified 03/30/22 17:27) itch neomycin sulfate [From Neosporin ([id number])] Adverse Reaction (Mild, Verified 03/30/22 17:27) itch polymyxin B [From Neosporin ([id number])] Adverse Reaction (Mild, Verified 03/30/22 17:27) Itching Home Medications: Ropinirole HCl [Requip] 3 mg PO TID 03/05/14 [History] Ipratropium/Albuterol Sulfate [Iprat-Albut 0.5-3(2.5) mg/3 ml] 1 neb IH QID 10/21/21 [History] Doxycycline Hyclate 100 mg PO BID 01/08/22 [History] Amlodipine Besylate 5 mg [Norvasc 5 mg] 5 mg PO BID 03/30/22 [History] Famotidine 20 mg [Pepcid 20 MG] 40 mg PO DAILY 03/30/22 [History] Furosemide 40 mg [Lasix 40 MG] 40 mg PO DAILY 03/30/22 [History] Levofloxacin [Levofloxacin 250MG Tablet] 750 mg PO DAILY 03/30/22 [History] Losartan Potassium 50 mg [Cozaar 50 MG] 50 mg PO BID 03/30/22 [History] Potassium Chloride 10 meq PO DAILY 03/30/22 [History] Prednisone 10 mg [Deltasone 10 mg] 10 mg PO DAILY 03/30/22 [History] Hx Tetanus, Diphtheria Vaccination/Date Given: No Hx Influenza Vaccination/Date Given: No Hx Pneumococcal Vaccination/Date Given: No Immunizations Up to Date: No Travel Risk - International Travel Have you traveled outside of the country in past 3 weeks: No - Coronavirus Screening Symptoms: Shortness of Breath Close contact with a COVID-19 positive Pt in past 14-21 Days: No - Vaccine Status Have you recieved a Covid-19 vaccination: No - Review of Systems Constitutional: No Symptoms Eyes: No Symptoms Ears, Nose, & Throat: No Symptoms Respiratory: No Symptoms Cardiac: No Symptoms Abdominal/Gastrointestinal: No Symptoms Genitourinary Symptoms: No Symptoms Musculoskeletal: No Symptoms Skin: Other (Chronic wound right pretibial/lower leg) Neurological: No Symptoms Psychological: No Symptoms Endocrine: No Symptoms Hematologic/Lymphatic: No Symptoms Immunological/Allergic: No Symptoms All Other Systems: Reviewed and Negative - Past Medical History Pertinent Past Medical History: Yes Neurological History: No Pertinent History ENT History: No Pertinent History Cardiac History: Congestive Heart Failure, Hypertension, Peripheral Vascular Disease Respiratory History: COPD, Emphysema Endocrine Medical History: No Pertinent History Musculoskeletal History: Arthritis, Fibromyalgia GI Medical History: No Pertinent History History: Other Psycho-Social History: No Pertinent History Female Reproductive Disorders: No Pertinent History Other Medical History: Stress Incontinence - Past Surgical History Past Surgical History: Yes Neuro Surgical History: No Pertinent History Cardiac: No Pertinent History Respiratory: No Pertinent History Gastrointestinal: Cholecystectomy Genitourinary: No Pertinent History Musculoskeletal: No Pertinent History Female Surgical History: No Pertinent History, Tubal Ligation - Social History Smoking Status: Current every day smoker How long have you smoked: 25 years Exposure to second hand smoke: Yes Drug Use: none Patient Lives Alone: No Significant Family History: no pertinent family hx - Nursing Vital Signs Nursing Vital Signs: Initial Vital Signs Pulse Rate 82 03/30/22 17:27 Respiratory Rate 16 03/30/22 17:27 Blood Pressure 186/78 03/30/22 17:27 O2 Sat by Pulse Oximetry 97 03/30/22 17:27 Pain Scale Pain Intensity 7 - Physical Exam General Appearance: no apparent distress, alert, obese Eye Exam: PERRL/EOMI, post op pupil defect (L) Ears, Nose, Throat Exam: normal ENT inspection, moist mucous membranes Neck Exam: normal inspection, non-tender, supple, full range of motion Respiratory Exam: normal breath sounds, lungs clear, airway intact, No chest tenderness, No respiratory distress Cardiovascular Exam: regular rate/rhythm, normal heart sounds, normal peripheral pulses Gastrointestinal/Abdomen Exam: soft, normal bowel sounds, No tenderness Pelvic Exam: not done Rectal Exam: not done Back Exam: normal inspection, normal range of motion, No CVA tenderness Extremity Exam: other (Chronic wound right leg pretibial region) Neurologic Exam: alert, 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, 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 No change from the twelve-lead EKG that was performed on 03/26/2022) Ordered Tests: Active Orders 24 hr Category Date Time Status EKG-ER Only STAT Care 03/30/22 18:15 Active IV Insertion STAT Care 03/30/22 19:24 Active Oxygen-ED Only Nasal Cannula 2 lpm Care 03/30/22 19:24 Active CHEST 1 VIEW (PORTABLE) Stat Exams 03/30/22 19:30 Taken BMP Stat Lab 03/30/22 18:35 Completed CBC W DIFF Stat Lab 03/30/22 18:35 Completed Transfer Order Routine Transfer 03/30/22 Ordered Lab/Rad Data: Laboratory Result Diagrams 03/30/22 18:35 03/30/22 18:35 Laboratory Results 03/30/22 03/30/22 03/30/22 Range/Units 18:35 18:35 18:35 WBC 13.2 H (4.0-10.5) x10^3/uL RBC 4.44 (4.1-5.4) x10^6/uL Hgb 12.6 (12.0-16.0) g/dL Hct 42.6 (35-47) % MCV 95.9 (78-100) fL MCH 28.4 (26-32) pg MCHC 29.6 L (32-36) g/dL RDW 14.2 H (11.5-14.0) % Plt Count 246 (150-450) x10^3/uL MPV 9.6 (7.5-11.0) fL Gran % 73.8 H (36.0-66.0) % Immature Gran % (Auto) 8.4 H (0.00-0.4) % Nucleat RBC Rel Count 0.0 (0.00-0.1) % Eos # (Auto) 0.08 (0-0.5) x10^3/uL Immature Gran # (Auto) 1.11 H (0.00-0.03) x10^3u/L Absolute Lymphs (auto) 1.48 (1.0-4.6) x10^3/uL Absolute Monos (auto) 0.79 (0.0-1.3) x10^3/uL Absolute Nucleated RBC 0.00 (0.00-0.01) x10^3u/L Lymphocytes % 11.2 L (24.0-44.0) % Monocytes % 6.0 (0.0-12.0) % Eosinophils % 0.6 (0.00-5.0) % Basophils % 0.0 (0.0-0.4) % Absolute Granulocytes 9.72 H (1.4-6.9) x10^3/uL Basophils # 0 (0-0.4) x10^3/uL Sodium 137 (137-145) mmol/L Potassium 3.6 (3.5-5.1) mmol/L Chloride 91 L (98-107) mmol/L Carbon Dioxide 42 H (22-30) mmol/L Anion Gap 7.6 (5-15) MEQ/L BUN 28 H (7-17) mg/dL Creatinine 0.65 (0.52-1.04) mg/dL Estimated GFR > 60.0 ML/MIN Glucose 203 H (74-106) mg/dL Calcium 9.0 (8.4-10.2) mg/dL Influenza Type A Ag NEGATIVE (NEGATIVE) Influenza Type B Ag NEGATIVE (NEGATIVE) RSV (PCR) NEGATIVE (Negative) SARS-CoV-2 (PCR) POSITIVE A (NEGATIVE) - Progress Progress: unchanged Progress Note: 03/30/22 19:40 Medical decision making: This patient tested positive for COVID 19 infection. She recently was diagnosed with pneumonia. We will place her in our COVID unit and start remdesivir. I spoke with Dr. Perez. She agrees with this plan. We will obtain discharge planning for retirement placement. 03/30/22 20:05 Chest x-ray shows persistent but slight improvement in the right basilar infiltrate Counseled pt/family regarding: lab results, diagnosis, rad results - Departure Departure Disposition: Observation Clinical Impression: COVID-19 virus infection, Pneumonia, Hypertension Condition: Stable Critical Care Time: No Referrals: DEB ESQUIVEL MD [Primary Care Provider] - Follow up/PCP as directed
[2022-03-30 18:42] LABS: Absolute Neutrophil Ct (ANC) 9.72 x10^3/uL (1.4-6.9); Basophil (Absolute #) 0 x10^3/uL (0-0.4); Eosinophil % 0.6 % (0.00-5.0); Eosinophil (Absolute #) 0.08 x10^3/uL (0-0.5); Hematocrit 42.6 % (35-47); Hemoglobin 12.6 g/dL (12.0-16.0); Lymphocyte (Absolute #) 1.48 x10^3/uL (1.0-4.6); Lymphocytes % 11.2 % (24.0-44.0); Mean Cell Volume 95.9 fL (78-100); Mean Corpuscular Hemoglobin 28.4 pg (26-32); Mean Corpuscular Hgb Concent. 29.6 g/dL (32-36); Mean Platelet Volume 9.6 fL (7.5-11.0); Monocyte (Absolute #) 0.79 x10^3/uL (0.0-1.3); Neutrophil % 73.8 % (36.0-66.0); Platelet Count 246 x10^3/uL (150-450); Red Blood Count 4.44 x10^6/uL (4.1-5.4); Red Cell Distribution Width 14.2 % (11.5-14.0); White Blood Count 13.2 x10^3/uL (4.0-10.5)
[2022-03-30 18:56] LABS: BLOOD UREA NITROGEN 28 mg/dL (7-17); CHLORIDE 91 mmol/L (98-107); Creatinine 1 0.65 mg/dL (0.52-1.04); EST GLOMERULAR FILTRATION RATE > 60.0 ML/MIN; Glucose 203 mg/dL (74-106); Potassium 3.6 mmol/L (3.5-5.1); SODIUM 137 mmol/L (137-145)
[2022-03-30] MEDS ORDERED: Ventolin Hfa MDI IH SCH (19:00)
[2022-03-30 19:05] LABS: ANION GAP 7.6 MEQ/L (5-15); Carbon Dioxide 42 mmol/L (22-30)
[2022-03-30 19:21] LABS: INFLUENZA A NEGATIVE (NEGATIVE); INFLUENZA B NEGATIVE (NEGATIVE); RESPIRATORY SYNCTIAL VIRUS NEGATIVE (Negative)
[2022-03-30 19:26] LABS: SARS-CoV-2 Xpert Express POSITIVE (NEGATIVE)
[2022-03-30] MEDS ORDERED: ENALAPRILAT 2.5 MG INJECTION IV SCH (20:39)
[2022-03-30] MEDS ORDERED: REMDESIVIR 100 MG in Sodium Chloride 100ML MINI-BAG PLUS 100 ML IV SCH (20:39)
[2022-03-30] MEDS ORDERED: Zofran 4 MG/2 ML VIAL IV PRN (20:39)
[2022-03-30] MEDS ORDERED: REMDESIVIR 200 MG in Sodium Chloride 0.9% 250 ML 250 ML IV ONE (20:39)
[2022-03-30 21:13] LABS: Slide Review 1 NO
[2022-03-30 21:14] LABS: BAND 1 % (0.0-2.0); Eosinophil 1 % (0.00-3.0); Lymphocytes 26 % (24-44); Monocyte 3 % (0.0-12.0); Myelocyte 1 %; Platelet Estimate NORMAL (NORMAL); Total Cells Counted 100
[2022-03-30 21:15] LABS: Nucleated Red Blood Cell 2 %
[2022-03-30 21:45] LABS: A-aADO2 170; ABG POTASSIUM 3.4 (3.5-5.1); ARTERIAL BLD GAS O2 SATURATION 96.1 % (95-100); ARTERIAL BLOOD GAS BASE EXCESS 28.9 (-2.0-2.0); ARTERIAL BLOOD GAS FIO2 50 %; ARTERIAL BLOOD GAS PO2 80 mmHg (75-100); ARTERIAL BLOOD GAS pH 7.45 (7.35-7.45); CARBOXYHEMOGLOBIN 1.2 % THgb (0.0-6.9); HCO3- 59.1 (22-28); HGB O2 SAT 94.2 g/dF (94-100); Methhemoglobin 0.8 % (1.4-1.5)
[2022-03-30 21:46] LABS: ABG SITE RIGHT BRACHIAL; ARTERIAL BLOOD GAS PCO2 85 mmHg (35-45)
[2022-03-30] MEDS ORDERED: REMDESIVIR IV ONE (21:46)
[2022-03-30] MEDS ORDERED: Sodium Chloride 0.9% 250 ML 250 ML IV ONE (21:46)
[2022-03-30] MEDS ORDERED: Decadron 4 MG INJ ONE (22:27)
[2022-03-30] MEDS: NORVASC 5 MG PO SCH (22:39)
[2022-03-30] MEDS: Sodium Chloride 0.9% 1000 ML 1,000 ML IV SCH (22:39)
[2022-03-30] MEDS: Cozaar 50 MG PO SCH ×2 (22:39→22:54)
[2022-03-30] MEDS: REQUIP 2MG TAB PO SCH (22:48)
[2022-03-30] MEDS ORDERED: Decadron 4 MG INJ IV ONE (22:57)
[2022-03-30] MEDS: DUONEB 0.5-3 MG/3 ml Neb IH SCH (23:35)
[2022-03-30] MEDS: TYLENOL EXTRA STRENGTH 500 MG PO PRN (23:47)
[2022-03-31 00:38] LABS: Bacteria RARE /HPF (NEGATIVE); Mucus SLIGHT /HPF (NEGATIVE); RBC 0-2 /HPF (0-2); WBC 0-2 /HPF (0-5)
[2022-03-31 00:40] LABS: Appearance CLEAR (CLEAR); Bilirubin NEGATIVE (NEGATIVE); Glucose 500 mg/dL (NEGATIVE); Ketones NEGATIVE (NEGATIVE); Nitrite NEGATIVE (NEGATIVE); Protein,Urine Dip 100 (Negative); RBC TRACE-INTACT Ery/ul (0-5); Specific Gravity 1.025 (1.005-1.025); Urobilinogen 0.2 mg/dL (0-1)
[2022-03-31 00:41] LABS: Dipstick done @ ? MAIN LAB; Urine Cultured Indicated? YES
[2022-03-31] MEDS: DUONEB 0.5-3 MG/3 ml Neb IH SCH ×6 (03:05→22:35)
[2022-03-31 05:13] LABS: Hematocrit 41.2 % (35-47); Hemoglobin 12.1 g/dL (12.0-16.0); Mean Cell Volume 96.3 fL (78-100); Mean Corpuscular Hemoglobin 28.3 pg (26-32); Mean Corpuscular Hgb Concent. 29.4 g/dL (32-36); Platelet Count 231 x10^3/uL (150-450); Red Blood Count 4.28 x10^6/uL (4.1-5.4); Red Cell Distribution Width 14.6 % (11.5-14.0); White Blood Count 11.1 x10^3/uL (4.0-10.5)
[2022-03-31 06:32] LABS: ALBUMIN 2.8 g/dL (3.5-5.0); ALKALINE PHOSPHATASE 68 U/L (38-126); BLOOD UREA NITROGEN 22 mg/dL (7-17); CHLORIDE 92 mmol/L (98-107); Calcium 8.6 mg/dL (8.4-10.2); Creatinine 1 0.66 mg/dL (0.52-1.04); EST GLOMERULAR FILTRATION RATE > 60.0 ML/MIN; Glucose 341 mg/dL (74-106); NT PRO BNP 410 pg/mL (0-900); Potassium 4.2 mmol/L (3.5-5.1); SGOT/AST 23 U/L (14-36); SGPT/ALT 27 U/L (0-35); SODIUM 138 mmol/L (137-145)
[2022-03-31 06:35] LABS: ANION GAP 8.2 MEQ/L (5-15); Carbon Dioxide 42 mmol/L (22-30)
[2022-03-31] MEDS ORDERED: ENALAPRILAT 2.5 MG INJECTION IV PRN (07:05)
[2022-03-31] MEDS: HUMALOG SQ PRN ×3 (08:15→22:35)
[2022-03-31] MEDS ORDERED: Levofloxacin 500MG/100ML D5W 500 MG/100 ML BAG IV SCH (10:00)
[2022-03-31] MEDS: ENOXAPARIN SODIUM SQ SCH (10:14)
[2022-03-31] MEDS: Cozaar 50 MG PO SCH ×2 (10:14→21:06)
[2022-03-31] MEDS: NORVASC 5 MG PO SCH ×2 (10:14→21:06)
[2022-03-31] MEDS: DECADRON 10MG INJ. IV SCH (10:15)
[2022-03-31] MEDS: REQUIP 2MG TAB PO SCH ×3 (10:23→21:05)
--- NOTE | 2022-03-31 10:41 | XRAY ---
Exam: AP upright portal chest film from 03/30/2022. Comparison: AP portable chest film from 03/25/2022. Indication: Pneumonia; Covid-19 positive. Findings: The heart size again appears mildly enlarged. Mild bibasilar linear/discoid atelectasis is seen, left greater than right. There appears to be some partial clearing at the lateral left lung base. The right lung base reveals slight increase in transverse linear stranding. In addition, there is some mild superimposed interstitial opacities at the right lung base. There appears to be a small calcified granuloma at the right lung base. The upper and midlung zones appear relatively clear. No pneumothorax or pleural fluid is seen. No acute osseous process is seen. Impression: 1. Some prominent interstitial opacities persist at the right lung base. 2. In addition, there is some mild bibasilar transverse linear stranding consistent with plate atelectasis. This is mildly improved at the lateral left lung base. 3. Stable mild cardiomegaly. 4. The upper and midlung zones remain relatively clear.
[2022-03-31] MEDS: Pepcid 20 MG PO SCH (15:08)
[2022-03-31] MEDS: Lasix 40 MG PO SCH (15:09)
[2022-03-31] MEDS: Klor Con PO SCH (15:09)
[2022-03-31] MEDS: JARDIANCE PO SCH (15:10)
[2022-03-31] MEDS: Glucophage 500 MG PO SCH (17:27)
[2022-03-31] MEDS: HYDROCODONE-CHLORPHEN ER SUSP PO PRN (21:03)
[2022-03-31] MEDS: Sodium Chloride 0.9% 1000 ML 1,000 ML IV SCH (21:03)
[2022-03-31] MEDS: REMDESIVIR 100 MG in Sodium Chloride 100ML MINI-BAG PLUS 100 ML IV SCH (21:05)
[2022-04-01] MEDS: DUONEB 0.5-3 MG/3 ml Neb IH SCH ×6 (02:35→23:39)
[2022-04-01 05:25] LABS: Hematocrit 39.9 % (35-47); Hemoglobin 11.9 g/dL (12.0-16.0); Mean Cell Volume 96.4 fL (78-100); Mean Corpuscular Hemoglobin 28.7 pg (26-32); Mean Corpuscular Hgb Concent. 29.8 g/dL (32-36); Mean Platelet Volume 9.9 fL (7.5-11.0); Platelet Count 199 x10^3/uL (150-450); Red Blood Count 4.14 x10^6/uL (4.1-5.4); Red Cell Distribution Width 14.6 % (11.5-14.0)
[2022-04-01 05:50] LABS: ALBUMIN 2.8 g/dL (3.5-5.0); ALKALINE PHOSPHATASE 60 U/L (38-126); BLOOD UREA NITROGEN 24 mg/dL (7-17); CHLORIDE 93 mmol/L (98-107); Calcium 8.7 mg/dL (8.4-10.2); Creatinine 1 0.67 mg/dL (0.52-1.04); EST GLOMERULAR FILTRATION RATE > 60.0 ML/MIN; Glucose 135 mg/dL (74-106); Potassium 3.6 mmol/L (3.5-5.1); SGOT/AST 23 U/L (14-36); SGPT/ALT 26 U/L (0-35); SODIUM 138 mmol/L (137-145)
[2022-04-01 05:55] LABS: Total Protein 5.9 g/dL (6.3-8.2)
[2022-04-01 05:56] LABS: Carbon Dioxide 44 mmol/L (22-30)
[2022-04-01 05:57] LABS: ANION GAP 4.6 MEQ/L (5-15)
[2022-04-01] MEDS: Glucophage 500 MG PO SCH ×2 (08:11→17:08)
--- NOTE | 2022-04-01 09:19 | PCM.NOTE ---
Date and Time: 04/01/22914 Subjective Assessment: Pt has no complaints this morning. Says her breathing is "fine" (on 9L oxymizer). Klarissa po. - Review of Systems Constitutional: No Fever Respiratory: Cough, Short Of Breath Objective Exam General Appearance: no apparent distress, alert, obese Neurologic Exam: 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, cooperative Skin Exam: normal color, warm, dry, No rash Wound Assessment: Skin/Wound Assessment Wound/Incision Assessment Start: 03/31/22 02:48 Text: Status: Active Freq: Q6H Protocol: Document 04/01/22 02:00 RB (Rec: 04/01/22 06:51 RB [id number]) Wound/Incision Assessment Right Anterior Calf Wound Assessment Shift Assessment Wound Type scab old chronic cellulitis rough skin Wound Stage Non Pressure Wound Drainage Amount None Drainage Odor None/Absent Comment scab Wound Photo Photo Taken No Eye Exam: eyes nml inspection Ears, Nose, Throat Exam: moist mucous membranes Neck Exam: normal inspection Respiratory Exam: normal breath sounds, lungs clear, wheezing (faint wheeze in all carmichael), No crackles/rales, No rhonchi Cardiovascular Exam: regular rate/rhythm, normal heart sounds, No murmur Gastrointestinal/Abdomen Exam: soft, normal bowel sounds, No tenderness, No distention, No mass, No guarding, No rebound Extremity Exam: normal inspection, swelling (1+ pretibial edema bilat, L>R) Back Exam: normal inspection, No rash OBJECTIVE DATA Vital Signs: Vital Signs - 24 hr Temp Pulse Resp BP Pulse Ox 04/01/22 08:00 84 90 L 04/01/22 07:46 86 22 93 L 04/01/22 07:00 99.5 F 74 20 190/74 97 04/01/22 06:00 24 04/01/22 05:53 81 94 L 04/01/22 05:00 77 23 91 L 04/01/22 04:00 24 04/01/22 03:08 78 28 H 91 L 04/01/22 02:00 24 04/01/22 01:54 85 23 95 04/01/22 01:00 24 95 04/01/22 00:00 97.0 F 82 21 166/74 94 L 03/31/22 23:00 97.0 F 82 24 166/74 95 03/31/22 22:35 89 20 94 L 03/31/22 22:00 24 03/31/22 21:00 80 22 96 03/31/22 19:55 20 03/31/22 19:53 96.7 F 84 20 171/79 94 L 03/31/22 18:40 88 28 H 91 L 03/31/22 18:00 86 37 H 96 03/31/22 17:49 96 H 20 96 03/31/22 17:00 81 17 93 L 03/31/22 16:00 99.1 F 89 29 H 151/65 91 L 03/31/22 15:46 30 H 03/31/22 15:29 96 H 20 91 L 03/31/22 15:00 87 96 03/31/22 14:00 91 H 22 94 L 03/31/22 13:00 98 H 33 H 96 03/31/22 12:01 94 L 03/31/22 12:00 98.9 F 98 H 24 140/77 94 L 03/31/22 11:59 84 L 03/31/22 11:41 104 H 20 97 03/31/22 11:00 102 H 25 H 97 03/31/22 10:00 88 23 95 Pain Assessment - Last Documented Pain Intensity 0 Pain Scale Used 0-10 Pain Scale Intake and Output: Intake & Output 03/29/22 03/30/22 03/31/22 04/01/22 11:59 11:59 11:59 11:59 Intake Total 1080 1440 Output Total 1575 3200 Balance -495 -1760 Weight 102.5 kg 102.5 kg Lab Results: Lab Results-Last 24 Hours 03/30/22 03/31/22 03/31/22 Range/Units 18:35 12:33 16:49 WBC (4.0-10.5) x10^3/uL RBC (4.1-5.4) x10^6/uL Hgb (12.0-16.0) g/dL Hct (35-47) % MCV (78-100) fL MCH (26-32) pg MCHC (32-36) g/dL RDW (11.5-14.0) % Plt Count (150-450) x10^3/uL MPV (7.5-11.0) fL Smear Path Review D-Dimer (0.0-0.50) mg/L Sodium (137-145) mmol/L Potassium (3.5-5.1) mmol/L Chloride (98-107) mmol/L Carbon Dioxide (22-30) mmol/L Anion Gap (5-15) MEQ/L BUN (7-17) mg/dL Creatinine (0.52-1.04) mg/dL Estimated GFR ML/MIN Glucose (74-106) mg/dL POC Glucometer 128 H 236 H (74 to 106) mg/dL Hemoglobin A1c (4.5-6.0) % Calcium (8.4-10.2) mg/dL Total Bilirubin (0.2-1.3) mg/dL AST (14-36) U/L ALT (0-35) U/L Alkaline Phosphatase (38-126) U/L NT-Pro-B Natriuret Pep (0-900) pg/mL Serum Total Protein (6.3-8.2) g/dL Albumin (3.5-5.0) g/dL 03/31/22 04/01/22 04/01/22 Range/Units 21:14 05:10 05:10 WBC 10.0 (4.0-10.5) x10^3/uL RBC 4.14 (4.1-5.4) x10^6/uL Hgb 11.9 L (12.0-16.0) g/dL Hct 39.9 (35-47) % MCV 96.4 (78-100) fL MCH 28.7 (26-32) pg MCHC 29.8 L (32-36) g/dL RDW 14.6 H (11.5-14.0) % Plt Count 199 (150-450) x10^3/uL MPV 9.9 (7.5-11.0) fL Smear Path Review D-Dimer (0.0-0.50) mg/L Sodium 138 (137-145) mmol/L Potassium 3.6 (3.5-5.1) mmol/L Chloride 93 L (98-107) mmol/L Carbon Dioxide 44 H (22-30) mmol/L Anion Gap 4.6 L (5-15) MEQ/L BUN 24 H (7-17) mg/dL Creatinine 0.67 (0.52-1.04) mg/dL Estimated GFR > 60.0 ML/MIN Glucose 135 H (74-106) mg/dL POC Glucometer 190 H (74 to 106) mg/dL Hemoglobin A1c (4.5-6.0) % Calcium 8.7 (8.4-10.2) mg/dL Total Bilirubin 0.20 (0.2-1.3) mg/dL AST 23 (14-36) U/L ALT 26 (0-35) U/L Alkaline Phosphatase 60 (38-126) U/L NT-Pro-B Natriuret Pep (0-900) pg/mL Serum Total Protein 5.9 L (6.3-8.2) g/dL Albumin 2.8 L (3.5-5.0) g/dL 04/01/22 04/01/22 04/01/22 Range/Units 05:10 05:10 05:10 WBC (4.0-10.5) x10^3/uL RBC (4.1-5.4) x10^6/uL Hgb (12.0-16.0) g/dL Hct (35-47) % MCV (78-100) fL MCH (26-32) pg MCHC (32-36) g/dL RDW (11.5-14.0) % Plt Count (150-450) x10^3/uL MPV (7.5-11.0) fL Smear Path Review D-Dimer 0.40 (0.0-0.50) mg/L Sodium (137-145) mmol/L Potassium (3.5-5.1) mmol/L Chloride (98-107) mmol/L Carbon Dioxide (22-30) mmol/L Anion Gap (5-15) MEQ/L BUN (7-17) mg/dL Creatinine (0.52-1.04) mg/dL Estimated GFR ML/MIN Glucose (74-106) mg/dL POC Glucometer (74 to 106) mg/dL Hemoglobin A1c 7.91 H (4.5-6.0) % Calcium (8.4-10.2) mg/dL Total Bilirubin (0.2-1.3) mg/dL AST (14-36) U/L ALT (0-35) U/L Alkaline Phosphatase (38-126) U/L NT-Pro-B Natriuret Pep 255 (0-900) pg/mL Serum Total Protein (6.3-8.2) g/dL Albumin (3.5-5.0) g/dL 04/01/22 Range/Units 07:12 WBC (4.0-10.5) x10^3/uL RBC (4.1-5.4) x10^6/uL Hgb (12.0-16.0) g/dL Hct (35-47) % MCV (78-100) fL MCH (26-32) pg MCHC (32-36) g/dL RDW (11.5-14.0) % Plt Count (150-450) x10^3/uL MPV (7.5-11.0) fL Smear Path Review D-Dimer (0.0-0.50) mg/L Sodium (137-145) mmol/L Potassium (3.5-5.1) mmol/L Chloride (98-107) mmol/L Carbon Dioxide (22-30) mmol/L Anion Gap (5-15) MEQ/L BUN (7-17) mg/dL Creatinine (0.52-1.04) mg/dL Estimated GFR ML/MIN Glucose (74-106) mg/dL POC Glucometer 115 H (74 to 106) mg/dL Hemoglobin A1c (4.5-6.0) % Calcium (8.4-10.2) mg/dL Total Bilirubin (0.2-1.3) mg/dL AST (14-36) U/L ALT (0-35) U/L Alkaline Phosphatase (38-126) U/L NT-Pro-B Natriuret Pep (0-900) pg/mL Serum Total Protein (6.3-8.2) g/dL Albumin (3.5-5.0) g/dL Radiology Exams: Radiology Procedures Category Date Time Status CHEST 1 VIEW (PORTABLE) Stat Exams 03/30/22 19:30 Completed Multi-Disciplinary Progress Notes: Multi-Disciplinary Progress Notes 04/01/22 05:07 Respiratory Note by Naye Moreno RT CALLED DUE TO LOW SPO2. PT C/O NASAL CONGESTION. PLACED ON 9L OXYMASK, SPO2 INCREASED TO 91%. Initialized on 04/01/22 05:07 - END OF NOTE 03/31/22 13:11 Case Management Note by Sindy Carey FROM ADMISSIONS PHONED FROM [facility], SHE WILL START PRECERTIFICATION FOR INSURANCE FOR PATIENT FOR REHAB STAY THERE. . Initialized on 03/31/22 13:11 - END OF NOTE Assessment/Plan (1) COVID-19 virus infection Current Visit: Yes Status: Acute Assessment & Plan: on remdesivir IV and dexamethasone IV. On 9 L oximizer. Stable. Code(s): U07.1 - COVID-19 (2) Pneumonia Current Visit: Yes Status: Acute Qualifiers: Pneumonia type: due to unspecified organism Laterality: right Lung location: lower lobe of lung Qualified Code(s): J18.9 - Pneumonia, unspecified organism Assessment & Plan: On levaquin 750mg po daily. Added probiotic. Code(s): J18.9 - PNEUMONIA, UNSPECIFIED ORGANISM (3) Muscular deconditioning Current Visit: Yes Status: Acute Assessment & Plan: Pt complained when coming to ER that she can't take care of herself - may need LTCF placement. 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
[2022-04-01] MEDS: Nicoderm CQ 21 MG TOP SCH (09:44)
[2022-04-01] MEDS: Levofloxacin 250MG Tablet PO SCH (09:45)
[2022-04-01] MEDS: Acidophilus TABLET PO SCH ×3 (09:46→22:24)
[2022-04-01] MEDS: NORVASC 5 MG PO SCH ×2 (09:46→22:31)
[2022-04-01] MEDS: DECADRON 10MG INJ. IV SCH (09:46)
[2022-04-01] MEDS: ENOXAPARIN SODIUM SQ SCH (09:46)
[2022-04-01] MEDS: Klor Con PO SCH (09:46)
[2022-04-01] MEDS: Pepcid 20 MG PO SCH (09:46)
[2022-04-01] MEDS: Lasix 40 MG PO SCH (09:46)
[2022-04-01] MEDS: Cozaar 50 MG PO SCH ×2 (09:47→22:05)
[2022-04-01] MEDS: REQUIP 2MG TAB PO SCH ×3 (09:47→22:12)
[2022-04-01] MEDS: JARDIANCE PO SCH (09:50)
[2022-04-01] MEDS: HYDROCODONE-CHLORPHEN ER SUSP PO PRN (11:39)
[2022-04-01] MEDS: TYLENOL EXTRA STRENGTH 500 MG PO PRN ×2 (11:40→22:11)
[2022-04-01] MEDS: HUMALOG SQ PRN ×3 (11:49→22:31)
[2022-04-01] MEDS: REMDESIVIR 100 MG in Sodium Chloride 100ML MINI-BAG PLUS 100 ML IV SCH (22:24)
[2022-04-02] MEDS: DUONEB 0.5-3 MG/3 ml Neb IH SCH ×6 (03:43→23:46)
[2022-04-02 05:05] LABS: Hematocrit 41.7 % (35-47); Hemoglobin 12.1 g/dL (12.0-16.0); Mean Cell Volume 98.3 fL (78-100); Mean Corpuscular Hemoglobin 28.5 pg (26-32); Mean Platelet Volume 9.9 fL (7.5-11.0); Platelet Count 185 x10^3/uL (150-450); Red Blood Count 4.24 x10^6/uL (4.1-5.4); Red Cell Distribution Width 14.7 % (11.5-14.0); White Blood Count 7.1 x10^3/uL (4.0-10.5)
[2022-04-02 05:39] LABS: ALKALINE PHOSPHATASE 56 U/L (38-126); BLOOD UREA NITROGEN 28 mg/dL (7-17); CHLORIDE 95 mmol/L (98-107); Calcium 8.7 mg/dL (8.4-10.2); Creatinine 1 0.66 mg/dL (0.52-1.04); EST GLOMERULAR FILTRATION RATE > 60.0 ML/MIN; Glucose 211 mg/dL (74-106); Potassium 3.5 mmol/L (3.5-5.1); SGOT/AST 23 U/L (14-36); SGPT/ALT 27 U/L (0-35); SODIUM 138 mmol/L (137-145)
[2022-04-02 05:45] LABS: Carbon Dioxide 40 mmol/L (22-30)
[2022-04-02 07:10] LABS: ANION GAP 6.5 MEQ/L (5-15)
[2022-04-02] MEDS: Glucophage 500 MG PO SCH ×2 (07:37→17:54)
[2022-04-02] MEDS: DECADRON 10MG INJ. IV SCH (09:40)
[2022-04-02] MEDS: Pepcid 20 MG PO SCH (09:41)
[2022-04-02] MEDS: REQUIP 2MG TAB PO SCH ×3 (09:41→21:03)
[2022-04-02] MEDS: ENOXAPARIN SODIUM SQ SCH (09:41)
[2022-04-02] MEDS: Nicoderm CQ 21 MG TOP SCH (09:41)
[2022-04-02] MEDS: Lasix 40 MG PO SCH (09:41)
[2022-04-02] MEDS: Acidophilus TABLET PO SCH ×3 (09:45→21:03)
[2022-04-02] MEDS: Levofloxacin 250MG Tablet PO SCH (09:45)
[2022-04-02] MEDS: JARDIANCE PO SCH (09:46)
[2022-04-02] MEDS: Cozaar 50 MG PO SCH ×2 (09:46→21:03)
[2022-04-02] MEDS: NORVASC 5 MG PO SCH ×2 (09:46→21:03)
[2022-04-02] MEDS: Klor Con PO SCH (09:46)
[2022-04-02] MEDS: TYLENOL EXTRA STRENGTH 500 MG PO PRN (11:45)
[2022-04-02] MEDS: HUMALOG SQ PRN ×2 (12:01→17:54)
--- NOTE | 2022-04-02 12:53 | PCM.NOTE ---
Date and Time: 04/02/22 1249 Subjective Assessment: Pt is feeling better. Up and sitting in chair. Klarissa po well. O2 down from 9L oximask to 5 L oximask. - Review of Systems Constitutional: No Fever Respiratory: Cough, Short Of Breath Objective Exam General Appearance: no apparent distress, alert, obese Neurologic Exam: 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, cooperative Skin Exam: normal color, warm, dry, No rash Wound Assessment: Skin/Wound Assessment Wound/Incision Assessment Start: 03/31/22 02:48 Text: Status: Active Freq: Q6H Protocol: Document 04/02/22 07:50 BA (Rec: 04/02/22 08:00 BA [id number]) Wound/Incision Assessment Right Anterior Calf Wound Assessment Shift Assessment Wound Type scab old chronic cellulitis rough skin Wound Stage Non Pressure Wound Drainage Amount None Drainage Odor None/Absent Comment scab Wound Photo Photo Taken No Eye Exam: eyes nml inspection Ears, Nose, Throat Exam: moist mucous membranes Neck Exam: normal inspection Respiratory Exam: diminished breath sounds (fair to good air exchange.), wheezing (faint scattered expiratory), No crackles/rales, No rhonchi Cardiovascular Exam: regular rate/rhythm, No normal heart sounds (distant but appear nl), No murmur Gastrointestinal/Abdomen Exam: soft, normal bowel sounds, No tenderness, No mass, No guarding, No rebound Extremity Exam: swelling (trace pretibial edema bilat) OBJECTIVE DATA Vital Signs: Vital Signs - 24 hr Temp Pulse Resp BP Pulse Ox 04/02/22 12:00 98.4 F 88 16 151/67 90 L 04/02/22 11:25 88 18 92 L 04/02/22 11:00 85 17 90 L 04/02/22 10:00 83 27 H 92 L 04/02/22 09:00 24 04/02/22 08:00 87 20 90 L 04/02/22 07:58 77 20 94 L 04/02/22 07:48 20 04/02/22 07:00 97.7 F 71 20 128/59 94 L 04/02/22 05:00 87 28 H 92 L 04/02/22 04:00 97.9 F 87 28 H 141/64 92 L 04/02/22 03:46 87 30 H 92 L 04/02/22 02:00 72 30 H 94 L 04/02/22 01:00 72 22 94 L 04/02/22 00:00 98.7 F 94 H 22 175/74 95 04/01/22 23:40 88 24 93 L 04/01/22 23:00 85 22 93 L 04/01/22 22:00 24 04/01/22 21:55 80 27 H 94 L 04/01/22 21:00 80 24 95 04/01/22 20:00 98.5 F 92 H 24 130/58 94 L 04/01/22 18:56 91 H 16 94 L 04/01/22 18:00 81 16 89 L 04/01/22 16:52 102 H 92 L 04/01/22 16:00 98.5 F 92 H 20 136/63 90 L 04/01/22 15:54 18 04/01/22 15:25 88 18 93 L 04/01/22 15:00 94 H 27 H 93 L 04/01/22 14:00 85 28 H 99 04/01/22 13:00 84 20 92 L Pain Assessment - Last Documented Pain Intensity 2 Pain Scale Used 0-10 Pain Scale Intake and Output: Intake & Output 03/31/22 04/01/22 04/02/22 04/03/22 11:59 11:59 11:59 11:59 Intake Total 1080 1680 2840 Output Total 1572 3200 6930 Balance -987 -2247 -469 Weight 102.5 kg 102.5 kg Lab Results: Lab Results-Last 24 Hours 04/01/22 04/01/22 04/02/22 Range/Units 15:46 20:32 05:02 WBC 7.1 (4.0-10.5) x10^3/uL RBC 4.24 (4.1-5.4) x10^6/uL Hgb 12.1 (12.0-16.0) g/dL Hct 41.7 (35-47) % MCV 98.3 (78-100) fL MCH 28.5 (26-32) pg MCHC 29.0 L (32-36) g/dL RDW 14.7 H (11.5-14.0) % Plt Count 185 (150-450) x10^3/uL MPV 9.9 (7.5-11.0) fL D-Dimer (0.0-0.50) mg/L Sodium (137-145) mmol/L Potassium (3.5-5.1) mmol/L Chloride (98-107) mmol/L Carbon Dioxide (22-30) mmol/L Anion Gap (5-15) MEQ/L BUN (7-17) mg/dL Creatinine (0.52-1.04) mg/dL Estimated GFR ML/MIN Glucose (74-106) mg/dL POC Glucometer 233 H 158 H (74 to 106) mg/dL Calcium (8.4-10.2) mg/dL Total Bilirubin (0.2-1.3) mg/dL AST (14-36) U/L ALT (0-35) U/L Alkaline Phosphatase (38-126) U/L Serum Total Protein (6.3-8.2) g/dL Albumin (3.5-5.0) g/dL 04/02/22 04/02/22 04/02/22 Range/Units 05:02 05:02 07:00 WBC (4.0-10.5) x10^3/uL RBC (4.1-5.4) x10^6/uL Hgb (12.0-16.0) g/dL Hct (35-47) % MCV (78-100) fL MCH (26-32) pg MCHC (32-36) g/dL RDW (11.5-14.0) % Plt Count (150-450) x10^3/uL MPV (7.5-11.0) fL D-Dimer 0.37 (0.0-0.50) mg/L Sodium 138 (137-145) mmol/L Potassium 3.5 (3.5-5.1) mmol/L Chloride 95 L (98-107) mmol/L Carbon Dioxide 40 H (22-30) mmol/L Anion Gap 6.5 (5-15) MEQ/L BUN 28 H (7-17) mg/dL Creatinine 0.66 (0.52-1.04) mg/dL Estimated GFR > 60.0 ML/MIN Glucose 211 H (74-106) mg/dL POC Glucometer 131 H (74 to 106) mg/dL Calcium 8.7 (8.4-10.2) mg/dL Total Bilirubin 0.20 (0.2-1.3) mg/dL AST 23 (14-36) U/L ALT 27 (0-35) U/L Alkaline Phosphatase 56 (38-126) U/L Serum Total Protein 6.0 L (6.3-8.2) g/dL Albumin 3.0 L (3.5-5.0) g/dL 04/02/22 Range/Units 11:47 WBC (4.0-10.5) x10^3/uL RBC (4.1-5.4) x10^6/uL Hgb (12.0-16.0) g/dL Hct (35-47) % MCV (78-100) fL MCH (26-32) pg MCHC (32-36) g/dL RDW (11.5-14.0) % Plt Count (150-450) x10^3/uL MPV (7.5-11.0) fL D-Dimer (0.0-0.50) mg/L Sodium (137-145) mmol/L Potassium (3.5-5.1) mmol/L Chloride (98-107) mmol/L Carbon Dioxide (22-30) mmol/L Anion Gap (5-15) MEQ/L BUN (7-17) mg/dL Creatinine (0.52-1.04) mg/dL Estimated GFR ML/MIN Glucose (74-106) mg/dL POC Glucometer 161 H (74 to 106) mg/dL Calcium (8.4-10.2) mg/dL Total Bilirubin (0.2-1.3) mg/dL AST (14-36) U/L ALT (0-35) U/L Alkaline Phosphatase (38-126) U/L Serum Total Protein (6.3-8.2) g/dL Albumin (3.5-5.0) g/dL Multi-Disciplinary Progress Notes: Multi-Disciplinary Progress Notes 04/02/22 09:59 Case Management Note by Sindy Carey FROM [facility] SHE GOT PRE-CERTIFICATION, PT CAN COME TODAY. PHONED DR AVILA OFFICE TO NOTIFY HER AND DISCUSS D/C. NO ANSWER WILL CALL BACK. Initialized on 04/02/22 09:59 - END OF NOTE 04/01/22 12:54 Case Management Note by Sindy Carey clarified with Flor at signature, they are able to accommodate high flow at 8L, they verified yes, they can accommodate her oxygen needs. Initialized on 04/01/22 12:54 - END OF NOTE Assessment/Plan (1) COVID-19 virus infection Current Visit: Yes Status: Acute Assessment & Plan: She is improving, with less O2 requirement. Has two more days of remdesivir. Code(s): U07.1 - COVID-19 (2) Pneumonia Current Visit: Yes Status: Acute Qualifiers: Pneumonia type: due to unspecified organism Laterality: right Lung location: lower lobe of lung Qualified Code(s): J18.9 - Pneumonia, unspecified organism Assessment & Plan: on levaquin Code(s): J18.9 - PNEUMONIA, UNSPECIFIED ORGANISM (3) Muscular deconditioning Current Visit: Yes Status: Chronic Assessment & Plan: Awaiting approval for LTCF. Code(s): R29.898 - OTH SYMPTOMS AND SIGNS INVOLVING THE MUSCULOSKELETAL SYSTEM (4) HTN (hypertension) Current Visit: Yes Status: Chronic Qualifiers: Hypertension type: primary hypertension Qualified Code(s): I10 - Essential (primary) hypertension Code(s): I10 - ESSENTIAL (PRIMARY) HYPERTENSION (5) Type 2 diabetes mellitus Current Visit: No Status: Chronic Qualifiers: Diabetes mellitus buttermaker continuous churn insulin use: without buttermaker continuous churn use (6) COPD (chronic obstructive pulmonary disease) Current Visit: Yes Status: Chronic Qualifiers: COPD type: unspecified COPD Qualified Code(s): J44.9 - Chronic obstructive pulmonary disease, unspecified
[2022-04-02] MEDS: Sodium Chloride 0.9% 1000 ML 1,000 ML IV SCH ×2 (15:04→20:25)
[2022-04-02] MEDS ORDERED: REMDESIVIR 100 MG in Sodium Chloride 100ML MINI-BAG PLUS 100 ML IV SCH (18:00)
[2022-04-03] MEDS: TYLENOL EXTRA STRENGTH 500 MG PO PRN ×2 (01:06→11:17)
[2022-04-03] MEDS: DUONEB 0.5-3 MG/3 ml Neb IH SCH ×2 (03:00→08:04)
[2022-04-03 05:52] LABS: ALBUMIN 2.7 g/dL (3.5-5.0); ALKALINE PHOSPHATASE 53 U/L (38-126); BLOOD UREA NITROGEN 27 mg/dL (7-17); CHLORIDE 94 mmol/L (98-107); Calcium 8.5 mg/dL (8.4-10.2); Creatinine 1 0.69 mg/dL (0.52-1.04); EST GLOMERULAR FILTRATION RATE > 60.0 ML/MIN; Glucose 157 mg/dL (74-106); Potassium 3.6 mmol/L (3.5-5.1); SGOT/AST 21 U/L (14-36); SGPT/ALT 24 U/L (0-35); SODIUM 138 mmol/L (137-145); Total Protein 5.5 g/dL (6.3-8.2)
[2022-04-03 05:59] LABS: Carbon Dioxide 39 mmol/L (22-30)
[2022-04-03 06:06] LABS: ANION GAP 8.6 MEQ/L (5-15)
[2022-04-03 06:45] LABS: Hematocrit 41.3 % (35-47); Hemoglobin 12.1 g/dL (12.0-16.0); Mean Cell Volume 98.6 fL (78-100); Mean Corpuscular Hemoglobin 28.9 pg (26-32); Mean Corpuscular Hgb Concent. 29.3 g/dL (32-36); Platelet Count 168 x10^3/uL (150-450); Red Blood Count 4.19 x10^6/uL (4.1-5.4); Red Cell Distribution Width 14.8 % (11.5-14.0); White Blood Count 6.7 x10^3/uL (4.0-10.5)
[2022-04-03] MEDS: Glucophage 500 MG PO SCH (08:22)
[2022-04-03] MEDS: Klor Con PO SCH (08:23)
[2022-04-03] MEDS: NORVASC 5 MG PO SCH (08:23)
[2022-04-03] MEDS: Levofloxacin 250MG Tablet PO SCH (08:23)
[2022-04-03] MEDS: Acidophilus TABLET PO SCH (08:23)
[2022-04-03] MEDS: Lasix 40 MG PO SCH (08:23)
[2022-04-03] MEDS: Cozaar 50 MG PO SCH (08:23)
[2022-04-03] MEDS: Pepcid 20 MG PO SCH (08:23)
[2022-04-03] MEDS: JARDIANCE PO SCH (08:24)
[2022-04-03] MEDS: ENOXAPARIN SODIUM SQ SCH (08:24)
[2022-04-03] MEDS: Nicoderm CQ 21 MG TOP SCH (08:24)
[2022-04-03] MEDS: REQUIP 2MG TAB PO SCH (08:24)
[2022-04-03] MEDS: DECADRON 10MG INJ. IV SCH (08:26)
--- NOTE | 2022-04-03 08:31 | PCM.DS ---
Discharge Summary Date of Admission: 03/30/22 20:38 Admitting Physician: DEB ESQUIVEL Primary Care Provider: DEB ESQUIVEL Allergies Allergies codeine Allergy (Intermediate, Verified 03/30/22 17:27) rash, itching cefaclor [From Ceclor] Allergy (Mild, Verified 03/30/22 17:27) Rash Penicillins Allergy (Mild, Verified 03/30/22 17:27) Swelling bacitracin [From Neosporin ([id number])] Adverse Reaction (Mild, Verified 03/30/22 17:27) Itching bacitracin zinc [From Neosporin ([id number])] Adverse Reaction (Mild, Verified 03/30/22 17:27) Itching levofloxacin [From Levaquin] Adverse Reaction (Mild, Verified 03/30/22 17:27) itch neomycin sulfate [From Neosporin ([id number]-hea-[id number])] Adverse Reaction (Mild, Verified 03/30/22 17:27) itch polymyxin B [From Neosporin ([id number])] Adverse Reaction (Mild, Verified 03/30/22 17:27) Itching Hospital Summary - Hospital Course Hospital Course: Pt is 66 yo female pt of Dr. Esquivel with COPD, HTN, DMII and morbid obesity who came in through ER c/o not able to care for herself and found to have Covid and pneumonia. Given 1 dose IV levaquin and has been on po levaquin since then. Had a 3 day course of remdesivir and IV dexamethasone. On O2 at home, but up to 9L oxymask here (currently 5L oxymask). She is feeling well today. Breathing is good. Will be discharged to LTCF on levaquin x 4 more days (7d total). - Vitals & Intake/Output Vital Signs: Vital Signs Temperature 97.9 F 04/03/22 04:00 Pulse Rate 76 04/03/22 08:04 Respiratory Rate 18 04/03/22 08:04 Blood Pressure 123/60 04/03/22 04:00 O2 Sat by Pulse Oximetry 95 04/03/22 08:04 Intake & Output: Intake & Output 03/31/22 04/01/22 04/02/22 04/03/22 11:59 11:59 11:59 11:59 Intake Total 1080 1680 2840 1387 Output Total 1575 3200 3350 2700 Balance -495 -1520 -510 -1313 Weight 102.5 kg 102.5 kg - Lab Result Diagrams: 04/03/22 06:31 04/03/22 05:05 Lab Results-Last 24 Hrs: Lab Results-Last 24 Hours 04/02/22 04/02/22 04/02/22 Range/Units 11:47 16:10 20:28 WBC (4.0-10.5) x10^3/uL RBC (4.1-5.4) x10^6/uL Hgb (12.0-16.0) g/dL Hct (35-47) % MCV (78-100) fL MCH (26-32) pg MCHC (32-36) g/dL RDW (11.5-14.0) % Plt Count (150-450) x10^3/uL MPV (7.5-11.0) fL D-Dimer (0.0-0.50) mg/L Sodium (137-145) mmol/L Potassium (3.5-5.1) mmol/L Chloride (98-107) mmol/L Carbon Dioxide (22-30) mmol/L Anion Gap (5-15) MEQ/L BUN (7-17) mg/dL Creatinine (0.52-1.04) mg/dL Estimated GFR ML/MIN Glucose (74-106) mg/dL POC Glucometer 161 H 283 H 139 H (74 to 106) mg/dL Calcium (8.4-10.2) mg/dL Total Bilirubin (0.2-1.3) mg/dL AST (14-36) U/L ALT (0-35) U/L Alkaline Phosphatase (38-126) U/L Serum Total Protein (6.3-8.2) g/dL Albumin (3.5-5.0) g/dL 04/03/22 04/03/22 04/03/22 Range/Units 05:05 06:31 06:31 WBC 6.7 (4.0-10.5) x10^3/uL RBC 4.19 (4.1-5.4) x10^6/uL Hgb 12.1 (12.0-16.0) g/dL Hct 41.3 (35-47) % MCV 98.6 (78-100) fL MCH 28.9 (26-32) pg MCHC 29.3 L (32-36) g/dL RDW 14.8 H (11.5-14.0) % Plt Count 168 (150-450) x10^3/uL MPV 10.0 (7.5-11.0) fL D-Dimer 0.37 (0.0-0.50) mg/L Sodium 138 (137-145) mmol/L Potassium 3.6 (3.5-5.1) mmol/L Chloride 94 L (98-107) mmol/L Carbon Dioxide 39 H (22-30) mmol/L Anion Gap 8.6 (5-15) MEQ/L BUN 27 H (7-17) mg/dL Creatinine 0.69 (0.52-1.04) mg/dL Estimated GFR > 60.0 ML/MIN Glucose 157 H (74-106) mg/dL POC Glucometer (74 to 106) mg/dL Calcium 8.5 (8.4-10.2) mg/dL Total Bilirubin 0.20 (0.2-1.3) mg/dL AST 21 (14-36) U/L ALT 24 (0-35) U/L Alkaline Phosphatase 53 (38-126) U/L Serum Total Protein 5.5 L (6.3-8.2) g/dL Albumin 2.7 L (3.5-5.0) g/dL // Range/Units 07:33 WBC (4.0-10.5) x10^3/uL RBC (4.1-5.4) x10^6/uL Hgb (12.0-16.0) g/dL Hct (35-47) % MCV (78-100) fL MCH (26-32) pg MCHC (32-36) g/dL RDW (11.5-14.0) % Plt Count (150-450) x10^3/uL MPV (7.5-11.0) fL D-Dimer (0.0-0.50) mg/L Sodium (137-145) mmol/L Potassium (3.5-5.1) mmol/L Chloride (98-107) mmol/L Carbon Dioxide (22-30) mmol/L Anion Gap (5-15) MEQ/L BUN (7-17) mg/dL Creatinine (0.52-1.04) mg/dL Estimated GFR ML/MIN Glucose (74-106) mg/dL POC Glucometer 111 H (74 to 106) mg/dL Calcium (8.4-10.2) mg/dL Total Bilirubin (0.2-1.3) mg/dL AST (14-36) U/L ALT (0-35) U/L Alkaline Phosphatase (38-126) U/L Serum Total Protein (6.3-8.2) g/dL Albumin (3.5-5.0) g/dL Micro Results-Entire Visit: Microbiology 03/31/22 00:20 Urine Culture - Final Clean Catch Midstream NO GROWTH Accuchecks Date 04/02/22 Date 04/02/22 Date 04/02/22 Time 21:42 Time 16:39 - Procedures and Test Procedures and Tests throughout Hospitalization: Therapy Orders & Screens 03/30/22 20:39 Respiratory Therapy Consult ROUTINE Comment: Reason For Exam: Diagnosis: COVID 03/30/22 22:03 Respiratory Therapy Assessment DAILY Comment: Diagnosis: COVID 03/30/22 23:49 Oxygen Oxymizer LPM 8 lpm Comment: Diagnosis: COVID 03/31/22 02:26 OT Screen per Nursing Assess ONCE Comment: Protocol Order Physician Instructions: Greater than 3 points order OT Admission Screening Reason For Exam: Triggered on Admission Diagnosis: COVID Open Wound/Cellutlitis/Pressure Ulcers: No Acute Fx/ORIF/Change in wt bearing status: Yes Severe MUSCULOSKELETAL pain: No ADL Dysfunction: Yes Acute CVA w/Hemiparesis/Hemiplegia: No Decreased Functional Mobility/Strength: No Sprain/Strain: No Acute Post-op Mobility Dysfunction: No Total Points: 8 PT Screen per Nursing Assess ONCE Comment: Protocol Order Physician Instructions: Greater than 3 points order PT Admission Screenin Reason For Exam: Triggered on Admission Diagnosis: COVID Open Wound/Cellutlitis/Pressure Ulcers: No Acute Fx/ORIF/Change in wt bearing status: Yes Severe MUSCULOSKELETAL pain: No ADL Dysfunction: Yes Acute CVA w/Hemiparesis/Hemiplegia: No Decreased Functional Mobility/Strength: No Sprain/Strain: No Acute Post-op Mobility Dysfunction: No Total Points: 8 Smoking Cessation Education ONCE Comment: Diagnosis: COVID Smoking Status: Current every day smoker How long have you smoked: 50 years Have you smoked in the past 12 months: Yes Approximately how many cigarettes per day: 1 PACK A DAY Do you dip or chew tobacco: No 03/31/22 08:19 PT Eval & Treat (MD Order) ONCE Reason for Eval:: longterm placement requested Diagnosis: COVID Discharge Exam General Appearance: no apparent distress, alert, obese Neurologic Exam: 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, cooperative Eye Exam: eyes nml inspection Ears, Nose, Throat Exam: normal ENT inspection Neck Exam: normal inspection Respiratory Exam: diminished breath sounds (good air exchange), No crackles/rales, No rhonchi, No wheezing, No stridor Cardiovascular Exam: regular rate/rhythm, normal heart sounds, No murmur Gastrointestinal/Abdomen Exam: soft, normal bowel sounds, No tenderness, No mass, No guarding Back Exam: normal inspection, No rash Extremity Exam: normal inspection, No swelling Skin Exam: normal color, warm, dry, No rash Wound Assessment: Skin/Wound Assessment Wound/Incision Assessment Start: 03/31/22 02:48 Text: Status: Active Freq: Q6H Protocol: Document 04/03/22 02:00 RB (Rec: 04/03/22 06:55 RB [id number]) Wound/Incision Assessment Right Anterior Calf Wound Assessment Shift Assessment Wound Type scab old chronic cellulitis rough skin Wound Stage Non Pressure Wound Drainage Amount None Drainage Odor None/Absent Comment scab Wound Photo Photo Taken No Final Diagnosis/Problem List - Final Discharge Diagnosis/Problem (1) COVID-19 virus infection Current Visit: Yes Status: Acute Assessment & Plan: treated with 3d IV remdesivir and IV dexamethasone. Will resume her po prednisone on discharge. Code(s): U07.1 - COVID-19 (2) Pneumonia Current Visit: Yes Status: Acute Assessment & Plan: Continue levaquin for 4more days, finishing 7d total. Code(s): J18.9 - PNEUMONIA, UNSPECIFIED ORGANISM (3) Muscular deconditioning Current Visit: Yes Status: Chronic Assessment & Plan: to LTCF today. Code(s): R29.898 - OTH SYMPTOMS AND SIGNS INVOLVING THE MUSCULOSKELETAL SYSTEM (4) HTN (hypertension) Current Visit: Yes Status: Chronic Code(s): I10 - ESSENTIAL (PRIMARY) HYPERTENSION (5) Type 2 diabetes mellitus Current Visit: No Status: Chronic Priority: High Assessment & Plan: elevated BS with steroid tx. (6) COPD (chronic obstructive pulmonary disease) Current Visit: Yes Status: Chronic - Discharge Disposition: DC TO ANY "OTHER" ALF Condition: Good Prescriptions: New Lactobacillus Acidophilus [Acidophilus TABLET] 1 tab PO TID #21 tablet Nicotine 21 mg [Nicoderm CQ 21 MG] 21 mg TOP Q24H10 #7 patch Continue Ropinirole HCl [Requip] 3 mg PO TID Ipratropium/Albuterol Sulfate [Iprat-Albut 0.5-3(2.5) mg/3 ml] 1 neb IH QID Metformin HCl 500 mg [Glucophage 500 MG] 500 mg PO BIDWM #60 tablet Empagliflozin [Jardiance] 10 mg PO DAILY #30 tablet Potassium Chloride 10 meq PO DAILY Losartan Potassium 50 mg [Cozaar 50 MG] 50 mg PO BID Furosemide 40 mg [Lasix 40 MG] 40 mg PO DAILY Famotidine 20 mg [Pepcid 20 MG] 40 mg PO DAILY Amlodipine Besylate 5 mg [Norvasc 5 mg] 5 mg PO BID Prednisone 10 mg [Deltasone 10 mg] 10 mg PO DAILY Levofloxacin [Levofloxacin 250MG Tablet] 750 mg PO DAILY #4 tablet Discontinued Doxycycline Hyclate 100 mg PO BID Follow up with: DEB ESQUIVEL MD [Primary Care Provider] -
[2022-04-03] MEDS ORDERED: REMDESIVIR 100 MG in Sodium Chloride 100ML MINI-BAG PLUS 100 ML IV SCH (12:00)
[2022-04-03 13:02] VITALS: BP 143/66; PULSE 92; O2SAT 91
== END 2022-04-03 12:30 ==
LOC: ED 17:24 → MED SURG 20:38
PROVIDERS: ADMIT Family Medicine; ATTEND Family Medicine
DX: U07.1 COVID-19 (principal); J18.9 Pneumonia, unspecified organism; R29.898 Other symptoms and signs involving the musculoskeletal system; I10 Essential (primary) hypertension; E11.9 Type 2 diabetes mellitus without complications; J44.9 Chronic obstructive pulmonary disease, unspecified; S80.811A Abrasion, right lower leg, initial encounter; E66.9 Obesity, unspecified; Z79.899 Other long term (current) drug therapy; Z20.828 Contact with and (suspected) exposure to other viral communicable diseases; Z72.0 Tobacco use; Z99.81 Dependence on supplemental oxygen
CPT/HCPCS: 0241U; 36000; 36415; 36600; 71045; 80048; 80053; 81015; 82375; 82803; 82947; 83036; 83880; 85025; 85027; 85379; 87086; 93005; 93268; 94640; 94762; 97110; 97161; 97530; 99284; G0378; J0248; J1100; J1650; J1817; J1956; A9270-GY

== ENCOUNTER 2022-06-28 14:21 | Emergency (ER) | payer MEDICARE ==
[2022-06-28] MEDS ORDERED: Zofran 4 MG/2 ML VIAL IV ONE (15:01)
[2022-06-28] MEDS ORDERED: MORPHINE SULFATE 4 MG INJ IV ONE (15:01)
[2022-06-28] MEDS ORDERED: Zofran 4 MG/2 ML VIAL ONE (15:10)
[2022-06-28] MEDS ORDERED: MORPHINE SULFATE 4 MG INJ ONE (15:10)
[2022-06-28 15:35] LABS: Absolute Neutrophil Ct (ANC) 4.65 x10^3/uL (1.4-6.9); Basophil (Absolute #) 0.01 x10^3/uL (0-0.4); Eosinophil % 1.8 % (0.00-5.0); Eosinophil (Absolute #) 0.12 x10^3/uL (0-0.5); Hematocrit 43.8 % (35-47); Hemoglobin 12.5 g/dL (12.0-16.0); Lymphocytes % 19.8 % (24.0-44.0); Mean Cell Volume 96.3 fL (78-100); Mean Corpuscular Hemoglobin 27.5 pg (26-32); Mean Corpuscular Hgb Concent. 28.5 g/dL (32-36); Mean Platelet Volume 9.6 fL (7.5-11.0); Monocyte (Absolute #) 0.45 x10^3/uL (0.0-1.3); Monocytes % 6.9 % (0.0-12.0); Neutrophil % 70.8 % (36.0-66.0); Platelet Count 219 x10^3/uL (150-450); Red Blood Count 4.55 x10^6/uL (4.1-5.4); Red Cell Distribution Width 15.1 % (11.5-14.0); White Blood Count 6.6 x10^3/uL (4.0-10.5)
[2022-06-28 15:51] LABS: ALBUMIN 3.7 g/dL (3.5-5.0); ALKALINE PHOSPHATASE 71 U/L (38-126); BLOOD UREA NITROGEN 16 mg/dL (7-17); CHLORIDE 98 mmol/L (98-107); Calcium 8.9 mg/dL (8.4-10.2); Creatinine 1 0.56 mg/dL (0.52-1.04); EST GLOMERULAR FILTRATION RATE > 60.0 ML/MIN; Glucose 160 mg/dL (74-106); Potassium 4.2 mmol/L (3.5-5.1); SGOT/AST 19 U/L (14-36); SGPT/ALT 18 U/L (0-35); SODIUM 140 mmol/L (137-145); Total Protein 7.3 g/dL (6.3-8.2)
[2022-06-28 15:57] LABS: Carbon Dioxide 39 mmol/L (22-30)
[2022-06-28 16:00] LABS: ANION GAP 7.2 MEQ/L (5-15)
[2022-06-28 16:16] LABS: INFLUENZA A NEGATIVE (NEGATIVE); INFLUENZA B NEGATIVE (NEGATIVE); RESPIRATORY SYNCTIAL VIRUS NEGATIVE (Negative); SARS-CoV-2 Xpert Express NEGATIVE (NEGATIVE)
[2022-06-28 16:23] LABS: Slide Review 1 YES
[2022-06-28] MEDS ORDERED: CLINDAMYCIN-D5W 900 MG/50 ML*** 900 MG/50 ML BAG IV STA (16:49)
[2022-06-28] MEDS ORDERED: CLINDAMYCIN-D5W 900 MG/50 ML*** 900 MG/50 ML BAG IV ONE (16:56)
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
[2022-06-28 18:00] VITALS: BP 151/95; PULSE 93; O2SAT 95
--- NOTE | 2022-06-28 19:56 | XRAY ---
Indication: Bilateral pain and swelling. Two-dimensional sonogram and color Doppler imaging of the major venous vessels of the left and right leg performed. Comparison: October 21, 2021 No thrombus seen in the examined deep venous vessels of the left and right leg including greater saphenous vein. Veins demonstrate normal compressibility. Venous waveforms are normal with and without augmentation. Impression: Left and right leg continues to be negative for DVT. Comment: Preliminary report was given.
== END 2022-06-28 18:00 | disposition home or self-care (01) ==
LOC: ED 14:21
DX: L03.116 Cellulitis of left lower limb (principal); L03.115 Cellulitis of right lower limb; T25.331A Burn of third degree of right toe(s) (nail), initial encounter; X06.2XXA Exposure to ignition of other clothing and apparel, initial encounter; X04.XXXA Exposure to ignition of highly flammable material, initial encounter; J96.10 Chronic respiratory failure, unspecified whether with hypoxia or hypercapnia; Z99.81 Dependence on supplemental oxygen; Z72.0 Tobacco use; I11.0 Hypertensive heart disease with heart failure; I50.9 Heart failure, unspecified; E78.5 Hyperlipidemia, unspecified; E11.9 Type 2 diabetes mellitus without complications; Z79.899 Other long term (current) drug therapy; Z28.310 Unvaccinated for COVID-19; Z20.828 Contact with and (suspected) exposure to other viral communicable diseases
CPT/HCPCS: 0241U; 36000; 36415; 80053; 83605; 85025; 87040; 87070; 93970; 96365; 96374; 96375; 99284; J2270; J2405

== ENCOUNTER 2022-09-11 04:52 | Inpatient (IN) | payer MEDICARE ==
[2022-09-11] MEDS ORDERED: Lasix 40 MG/4 ML IV ONE (06:33)
[2022-09-11] MEDS ORDERED: Zofran 4 MG/2 ML VIAL IV ONE (06:36)
[2022-09-11] MEDS ORDERED: MORPHINE SULFATE 4 MG INJ IV ONE (06:36)
--- NOTE | 2022-09-11 06:48 | ERPHSYRPT ---
- History of Present Illness Source: patient, EMS Exam Limitations: no limitations Patient Subjective Stated Complaint: wounds to bilat lower legs, pt states has been ongoing for months. swelling increased and drainage from wounds Triage Nursing Assessment: pt awake and alert, answers questions approp. pt arrive per ambulanec and transfers to stretcher with assist of 3. respirations nonlabored. o2 on at 5l per nasal can. wounds to bilat lower legs with serous drainage. pt has hair, dirt in wounds to bilat legs. hair, dirt, feces caked on bottoms of bilat feet. dirt noted to pts neck, arms, abd. Timing/Duration: week(s), gradual onset, worse Quality: painful Severity: moderate Location: feet, extremities Possible Causes: no cause identified Associated Symptoms: blisters, difficulty breathing, edema, flushing, rash, swelling/mass/lumps Hx Tetanus, Diphtheria Vaccination/Date Given: Yes Hx Influenza Vaccination/Date Given: No Hx Pneumococcal Vaccination/Date Given: No Immunizations Up to Date: Yes <ADEBAYO MADDOX - Last Filed: 09/11/22 06:44> <CAREN DYKES - Last Filed: 09/11/22 10:01> - History of Present Illness Time Seen by Provider: 09/11/22 05:32 Physician History: 66 years old female with multiple medical problems including chronic respiratory failure secondary to COPD/tobacco abuse, hypertension, hyperlipidemia, diabetes mellitus, chronic bilateral lower extremity swelling which is progressively wor sening for the last couple of months and lately she noticed some blisters which ruptured and has some wounds on both lower legs with associated dull aching to sharp moderate intensity pain making it difficult ambulation. He has a chronic shortness of breath and normal 5 L oxygen with chronic smoker cough which is not any worse than usual. No fever or chills reported. Denies any chest pain or pa lpitations. (ADEBAYO MADDOX) Allergies/Adverse Reactions: codeine Allergy (Intermediate, Verified 09/11/22 05:23) rash, itching cefaclor [From Ceclor] Allergy (Mild, Verified 09/11/22 05:23) Rash Penicillins Allergy (Mild, Verified 09/11/22 05:23) Swelling bacitracin [From Neosporin ([id number])] Adverse Reaction (Mild, Verified 09/11/22 05:23) Itching bacitracin zinc [From Neosporin ([id number])] Adverse Reaction (Mild, Verified 09/11/22 05:23) Itching levofloxacin [From Levaquin] Adverse Reaction (Mild, Verified 09/11/22 05:23) itch neomycin sulfate [From Neosporin ([id number])] Adverse Reaction (Mild, Verified 09/11/22 05:23) itch polymyxin B [From Neosporin ([id number])] Adverse Reaction (Mild, Verified 09/11/22 05:23) Itching Home Medications: Ropinirole HCl [Requip] 3 mg PO TID 03/05/14 [History] Ipratropium/Albuterol Sulfate [Iprat-Albut 0.5-3(2.5) mg/3 ml] 1 neb IH QID 10/21/21 [History] Amlodipine Besylate 5 mg [Norvasc 5 mg] 5 mg PO BID 03/30/22 [History] Famotidine 20 mg [Pepcid 20 MG] 40 mg PO DAILY 03/30/22 [History] Furosemide 40 mg [Lasix 40 MG] 40 mg PO DAILY 03/30/22 [History] Losartan Potassium 50 mg [Cozaar 50 MG] 50 mg PO BID 03/30/22 [History] Potassium Chloride 10 meq PO DAILY 03/30/22 [History] Prednisone 10 mg [Deltasone 10 mg] 10 mg PO DAILY 03/30/22 [History] Travel Risk - International Travel Have you traveled outside of the country in past 3 weeks: No - Coronavirus Screening Are you exhibiting any of the following symptoms?: No Close contact with a COVID-19 positive Pt in past 14-21 Days: No - Vaccine Status Have you recieved a Covid-19 vaccination: No <ADEBAYO MADDOX - Last Filed: 09/11/22 06:44> - Review of Systems Constitutional: No Symptoms Eyes: No Symptoms Respiratory: Cough, Dyspnea, Wheezing Cardiac: Edema Abdominal/Gastrointestinal: No Symptoms Genitourinary Symptoms: No Symptoms Musculoskeletal: Arthralgias Skin: Cellulitis, Induration, Rash Neurological: No Symptoms Psychological: No Symptoms Endocrine: No Symptoms Hematologic/Lymphatic: No Symptoms Immunological/Allergic: No Symptoms <VARSHAADEBAYO - Last Filed: 09/11/22 06:44> - Past Medical History Pertinent Past Medical History: Yes Neurological History: No Pertinent History ENT History: No Pertinent History Cardiac History: Congestive Heart Failure, Hypertension, Peripheral Vascular Disease Respiratory History: COPD, Emphysema Endocrine Medical History: No Pertinent History Musculoskeletal History: Arthritis, Fibromyalgia GI Medical History: No Pertinent History History: Other Psycho-Social History: No Pertinent History Female Reproductive Disorders: No Pertinent History Other Medical History: Stress Incontinence - Past Surgical History Past Surgical History: Yes Neuro Surgical History: No Pertinent History Cardiac: No Pertinent History Respiratory: No Pertinent History Gastrointestinal: Cholecystectomy Genitourinary: No Pertinent History Musculoskeletal: No Pertinent History Female Surgical History: No Pertinent History, Tubal Ligation - Social History Smoking Status: Current every day smoker How long have you smoked: 50 years Exposure to second hand smoke: Yes Drug Use: none Patient Lives Alone: No Significant Family History: no pertinent family hx <ADEBAYO MADDOX Last Filed: 09/11/22 06:44> - Physical Exam General Appearance: no apparent distress, alert Eye Exam: PERRL/EOMI Ears, Nose, Throat Exam: moist mucous membranes, pharyngeal erythema Neck Exam: normal inspection, non-tender, supple, full range of motion Respiratory Exam: diminished breath sounds, wheezing Cardiovascular Exam: regular rate/rhythm, normal heart sounds Gastrointestinal/Abdomen Exam: soft, normal bowel sounds, No tenderness Back Exam: normal inspection, normal range of motion Extremity Exam: inflammation, pedal edema, swelling (Bilateral lower extremity welling erythema with broken skin/rash. 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 nml as tested Skin Exam: normal color SpO2 Interpretation: normal SpO2: 97 O2 Delivery: Room Air <VARSHAADEBAYO - Last Filed: 09/11/22 06:44> - Nursing Vital Signs Nursing Vital Signs: Initial Vital Signs Temperature 98.2 F 09/11/22 04:56 Pulse Rate 101 H 09/11/22 04:56 Respiratory Rate 16 09/11/22 04:56 Blood Pressure 171/69 09/11/22 04:56 O2 Sat by Pulse Oximetry 96 09/11/22 04:56 Pain Scale Pain Intensity 2 Ordered Tests: Active Orders 24 hr Category Date Time Status CHEST 1 VIEW (PORTABLE) Stat Exams 09/11/22 06:53 Completed BLOOD CULTURE Stat Lab 09/11/22 07:45 Received CBC W DIFF Stat Lab 09/11/22 07:25 Completed CMP Stat Lab 09/11/22 07:25 Completed Lactic Acid Stat Lab 09/11/22 07:31 Completed MAGNESIUM Stat Lab 09/11/22 07:25 Completed NT PRO BNP Stat Lab 09/11/22 07:25 Completed PROCALCITONIN Stat Lab 09/11/22 07:25 Completed TROPONIN Q4H Lab 09/11/22 07:25 Completed TROPONIN Q4H Lab 09/11/22 10:45 Ordered TROPONIN Q4H Lab 09/11/22 14:45 Ordered UA W/RFX UR CULTURE Stat Lab 09/11/22 08:00 Completed Transfer Order Routine Transfer 09/11/22 Ordered Medication Summary Generic Name Dose Route Start Last Admin Trade Name Freq PRN Reason Stop Dose Admin Vancomycin HCl 1 gm in 200 mls @ 125 mls/hr 09/11/22 08:44 09/11/22 09:32 Vancomycin 1 Gram/200 Ml Bag IV 09/11/22 10:19 125 mls/hr STAT ONE 125 mls/hr Administration Discontinued Medications Generic Name Dose Route Start Last Admin Trade Name Freq PRN Reason Stop Dose Admin Furosemide 60 mg 09/11/22 06:33 Furosemide 40 Mg/4 Ml Vial IV 09/11/22 06:34 STAT ONE Vancomycin HCl Confirm 09/11/22 09:31 Vancomycin 1 Gram/200 Ml Bag Administered 09/11/22 09:32 Dose 1 gm in 200 mls @ ud IV .STK-MED ONE Morphine Sulfate 4 mg 09/11/22 06:36 09/11/22 07:28 Morphine Sulfate 4 Mg/Ml Injection IV 09/11/22 06:37 4 mg STAT ONE Administration Morphine Sulfate Confirm 09/11/22 07:26 Morphine Sulfate 4 Mg/Ml Injection Administered 09/11/22 07:27 Dose 4 mg .ROUTE .STK-MED ONE Ondansetron HCl 4 mg 09/11/22 06:36 09/11/22 07:28 Ondansetron Hcl 4 Mg/2 Ml Vial IV 09/11/22 06:37 4 mg STAT ONE Administration Ondansetron HCl Confirm 09/11/22 07:26 Ondansetron Hcl 4 Mg/2 Ml Vial Administered 09/11/22 07:27 Dose 4 mg .ROUTE .[facility]-MED ONE Lab/Rad Data: Laboratory Result Diagrams 09/11/22 07:25 09/11/22 07:25 Laboratory Results 09/11/22 09/11/22 09/11/22 Range/Units 08:00 07:40 07:31 WBC (4.0-10.5) x10^3/uL RBC (4.1-5.4) x10^6/uL Hgb (12.0-16.0) g/dL Hct (35-47) % MCV (78-100) fL MCH (26-32) pg MCHC (32-36) g/dL RDW (11.5-14.0) % Plt Count (150-450) x10^3/uL MPV (7.5-11.0) fL Gran % (36.0-66.0) % Immature Gran % (Auto) (0.00-0.4) % Nucleat RBC Rel Count (0.00-0.1) % Eos # (Auto) (0-0.5) x10^3/uL Immature Gran # (Auto) (0.00-0.03) x10^3u/L Absolute Lymphs (auto) (1.0-4.6) x10^3/uL Absolute Monos (auto) (0.0-1.3) x10^3/uL Absolute Nucleated RBC (0.00-0.01) x10^3u/L Lymphocytes % (24.0-44.0) % Monocytes % (0.0-12.0) % Eosinophils % (0.00-5.0) % Basophils % (0.0-0.4) % Absolute Granulocytes (1.4-6.9) x10^3/uL Basophils # (0-0.4) x10^3/uL Sodium (137-145) mmol/L Potassium (3.5-5.1) mmol/L Chloride (98-107) mmol/L Carbon Dioxide (22-30) mmol/L Anion Gap (5-15) MEQ/L BUN (7-17) mg/dL Creatinine (0.52-1.04) mg/dL Estimated GFR ML/MIN Glucose (74-106) mg/dL Lactic Acid 1.3 (0.4-2.0) Calcium (8.4-10.2) mg/dL Magnesium (1.6-2.3) mg/dL Total Bilirubin (0.2-1.3) mg/dL AST (14-36) U/L ALT (0-35) U/L Alkaline Phosphatase (38-126) U/L Troponin I (0.000-0.034) ng/mL NT-Pro-B Natriuret Pep (0-900) pg/mL Serum Total Protein (6.3-8.2) g/dL Albumin (3.5-5.0) g/dL Procalcitonin (0.030-0.080) ng/mL Urine Color Yellow (Yellow) Urine Appearance Hazy (Clear) Urine pH 5.5 (4.6-8.0) Ur Specific [place] 1.025 (1.005-1.030) Urine Protein 300 A (Negative) Urine Ketones Negative (Negative) Urine Blood Negative (Negative) Urine Nitrite Negative (Negative) Urine Bilirubin Negative (Negative) Urine Urobilinogen 0.2 (0.2) mg/dL Ur Leukocyte Esterase Negative (Negative) Urine Microscopic RBC 0-2 (0-5) /HPF Urine Microscopic WBC 0-2 (0-5) /HPF Ur Epithelial Cells Few (None Seen) /HPF Urine Bacteria Many A (None Seen) /HPF Urine Culture Reflexed NO (NO) Urine Glucose 500 A (Negative) mg/dL Influenza Type A Ag NEGATIVE (NEGATIVE) Influenza Type B Ag NEGATIVE (NEGATIVE) RSV (PCR) NEGATIVE (Negative) SARS-CoV-2 (PCR) NEGATIVE (NEGATIVE) 09/11/22 09/11/22 09/11/22 Range/Units 07:25 07:25 07:25 WBC (4.0-10.5) x10^3/uL RBC (4.1-5.4) x10^6/uL Hgb (12.0-16.0) g/dL Hct (35-47) % MCV (78-100) fL MCH (26-32) pg MCHC (32-36) g/dL RDW (11.5-14.0) % Plt Count (150-450) x10^3/uL MPV (7.5-11.0) fL Gran % (36.0-66.0) % Immature Gran % (Auto) (0.00-0.4) % Nucleat RBC Rel Count (0.00-0.1) % Eos # (Auto) (0-0.5) x10^3/uL Immature Gran # (Auto) (0.00-0.03) x10^3u/L Absolute Lymphs (auto) (1.0-4.6) x10^3/uL Absolute Monos (auto) (0.0-1.3) x10^3/uL Absolute Nucleated RBC (0.00-0.01) x10^3u/L Lymphocytes % (24.0-44.0) % Monocytes % (0.0-12.0) % Eosinophils % (0.00-5.0) % Basophils % (0.0-0.4) % Absolute Granulocytes (1.4-6.9) x10^3/uL Basophils # (0-0.4) x10^3/uL Sodium 137 (137-145) mmol/L Potassium 4.2 (3.5-5.1) mmol/L Chloride 96 L (98-107) mmol/L Carbon Dioxide 38 H (22-30) mmol/L Anion Gap 6.9 (5-15) MEQ/L BUN 26 H (7-17) mg/dL Creatinine 0.70 (0.52-1.04) mg/dL Estimated GFR > 60.0 ML/MIN Glucose 218 H (74-106) mg/dL Lactic Acid (0.4-2.0) Calcium 9.1 (8.4-10.2) mg/dL Magnesium 1.9 (1.6-2.3) mg/dL Total Bilirubin 0.30 (0.2-1.3) mg/dL AST 20 (14-36) U/L ALT 15 (0-35) U/L Alkaline Phosphatase 84 (38-126) U/L Troponin I 0.015 (0.000-0.034) ng/mL NT-Pro-B Natriuret Pep 239 (0-900) pg/mL Serum Total Protein 7.9 (6.3-8.2) g/dL Albumin 3.7 (3.5-5.0) g/dL Procalcitonin 0.055 (0.030-0.080) ng/mL Urine Color (Yellow) Urine Appearance (Clear) Urine pH (4.6-8.0) Ur Specific [place] (1.005-1.030) Urine Protein (Negative) Urine Ketones (Negative) Urine Blood (Negative) Urine Nitrite (Negative) Urine Bilirubin (Negative) Urine Urobilinogen (0.2) mg/dL Ur Leukocyte Esterase (Negative) Urine Microscopic RBC (0-5) /HPF Urine Microscopic WBC (0-5) /HPF Ur Epithelial Cells (None Seen) /HPF Urine Bacteria (None Seen) /HPF Urine Culture Reflexed (NO) Urine Glucose (Negative) mg/dL Influenza Type A Ag (NEGATIVE) Influenza Type B Ag (NEGATIVE) RSV (PCR) (Negative) SARS-CoV-2 (PCR) (NEGATIVE) 09/11/22 Range/Units 07:25 WBC 7.5 (4.0-10.5) x10^3/uL RBC 4.31 (4.1-5.4) x10^6/uL Hgb 11.8 L (12.0-16.0) g/dL Hct 40.4 (35-47) % MCV 93.7 (78-100) fL MCH 27.4 (26-32) pg MCHC 29.2 L (32-36) g/dL RDW 14.8 H (11.5-14.0) % Plt Count 258 (150-450) x10^3/uL MPV 10.3 (7.5-11.0) fL Gran % 68.6 H (36.0-66.0) % Immature Gran % (Auto) 0.4 (0.00-0.4) % Nucleat RBC Rel Count 0.0 (0.00-0.1) % Eos # (Auto) 0.14 (0-0.5) x10^3/uL Immature Gran # (Auto) 0.03 (0.00-0.03) x10^3u/L Absolute Lymphs (auto) 1.59 (1.0-4.6) x10^3/uL Absolute Monos (auto) 0.58 (0.0-1.3) x10^3/uL Absolute Nucleated RBC 0.00 (0.00-0.01) x10^3u/L Lymphocytes % 21.1 L (24.0-44.0) % Monocytes % 7.7 (0.0-12.0) % Eosinophils % 1.9 (0.00-5.0) % Basophils % 0.3 (0.0-0.4) % Absolute Granulocytes 5.16 (1.4-6.9) x10^3/uL Basophils # 0.02 (0-0.4) x10^3/uL Sodium (137-145) mmol/L Potassium (3.5-5.1) mmol/L Chloride (98-107) mmol/L Carbon Dioxide (22-30) mmol/L Anion Gap (5-15) MEQ/L BUN (7-17) mg/dL Creatinine (0.52-1.04) mg/dL Estimated GFR ML/MIN Glucose (74-106) mg/dL Lactic Acid (0.4-2.0) Calcium (8.4-10.2) mg/dL Magnesium (1.6-2.3) mg/dL Total Bilirubin (0.2-1.3) mg/dL AST (14-36) U/L ALT (0-35) U/L Alkaline Phosphatase (38-126) U/L Troponin I (0.000-0.034) ng/mL NT-Pro-B Natriuret Pep (0-900) pg/mL Serum Total Protein (6.3-8.2) g/dL Albumin (3.5-5.0) g/dL Procalcitonin (0.030-0.080) ng/mL Urine Color (Yellow) Urine Appearance (Clear) Urine pH (4.6-8.0) Ur Specific [place] (1.005-1.030) Urine Protein (Negative) Urine Ketones (Negative) Urine Blood (Negative) Urine Nitrite (Negative) Urine Bilirubin (Negative) Urine Urobilinogen (0.2) mg/dL Ur Leukocyte Esterase (Negative) Urine Microscopic RBC (0-5) /HPF Urine Microscopic WBC (0-5) /HPF Ur Epithelial Cells (None Seen) /HPF Urine Bacteria (None Seen) /HPF Urine Culture Reflexed (NO) Urine Glucose (Negative) mg/dL Influenza Type A Ag (NEGATIVE) Influenza Type B Ag (NEGATIVE) RSV (PCR) (Negative) SARS-CoV-2 (PCR) (NEGATIVE) - Progress Progress: improved, pain not gone completely Discussed with : Martha Counseled pt/family regarding: lab results, diagnosis, need for follow-up, rad results <CAREN DYKES - Last Filed: 09/11/22 10:01> - Progress Progress Note: 09/11/22 09:27 Chest x-ray shows cardiomegaly without acute cardiopulmonary abnormalities. I reviewed this chest x-ray interpreted myself. 09/11/22 09:53 Medical decision making: I spoke with Dr. Esquivel who is this patient's primary care provider. I reviewed the patient history, physical findings and results of her x-rays and laboratory data. We will place the patient in observation and obtain wound care nurse consultation, discharge planning consultation and provide the patient with intravenous antibiotics including vancomycin and aztreonam. We will repeat labs in the morning. He agrees with this plan. (CAREN DYKES) <ADEBAYO MADDOX - Last Filed: 09/11/22 06:44> - Departure Departure Disposition: Observation Critical Care Time: No <CAREN DYKES - Last Filed: 09/11/22 10:01> - Departure Clinical Impression: Cellulitis of both lower extremities, Chronic venous stasis dermatitis Condition: Stable Referrals: DEB ESQUIVEL MD [Primary Care Provider] - Follow up/PCP as directed
[2022-09-11] MEDS ORDERED: MORPHINE SULFATE 4 MG INJ ONE (07:26)
[2022-09-11] MEDS ORDERED: Zofran 4 MG/2 ML VIAL ONE (07:26)
[2022-09-11 08:04] LABS: Bilirubin Negative (Negative); Blood Negative (Negative); Glucose 500 mg/dL (Negative); Ketones Negative (Negative); Leukocyte Esterase Negative (Negative); Nitrite Negative (Negative); Ph 5.5 (4.6-8.0); Protein,Urine Dip 300 (Negative); Specific Gravity 1.025 (1.005-1.030); Urobilinogen 0.2 mg/dL (0.2)
[2022-09-11 08:12] LABS: Absolute Neutrophil Ct (ANC) 5.16 x10^3/uL (1.4-6.9); BASOPHIL % 0.3 % (0.0-0.4); Basophil (Absolute #) 0.02 x10^3/uL (0-0.4); Eosinophil % 1.9 % (0.00-5.0); Eosinophil (Absolute #) 0.14 x10^3/uL (0-0.5); Hematocrit 40.4 % (35-47); Hemoglobin 11.8 g/dL (12.0-16.0); IMMATURE GRAN # 0.03 x10^3u/L (0.00-0.03); IMMATURE GRAN % 0.4 % (0.00-0.4); Lymphocyte (Absolute #) 1.59 x10^3/uL (1.0-4.6); Lymphocytes % 21.1 % (24.0-44.0); Mean Cell Volume 93.7 fL (78-100); Mean Corpuscular Hemoglobin 27.4 pg (26-32); Mean Corpuscular Hgb Concent. 29.2 g/dL (32-36); Mean Platelet Volume 10.3 fL (7.5-11.0); Monocyte (Absolute #) 0.58 x10^3/uL (0.0-1.3); Monocytes % 7.7 % (0.0-12.0); Neutrophil % 68.6 % (36.0-66.0); Platelet Count 258 x10^3/uL (150-450); Red Blood Count 4.31 x10^6/uL (4.1-5.4); Red Cell Distribution Width 14.8 % (11.5-14.0); White Blood Count 7.5 x10^3/uL (4.0-10.5)
[2022-09-11 08:34] LABS: INFLUENZA A NEGATIVE (NEGATIVE); INFLUENZA B NEGATIVE (NEGATIVE); RESPIRATORY SYNCTIAL VIRUS NEGATIVE (Negative); SARS-CoV-2 Xpert Express NEGATIVE (NEGATIVE)
[2022-09-11 08:37] LABS: ALBUMIN 3.7 g/dL (3.5-5.0); ALKALINE PHOSPHATASE 84 U/L (38-126); ANION GAP 6.9 MEQ/L (5-15); BLOOD UREA NITROGEN 26 mg/dL (7-17); CHLORIDE 96 mmol/L (98-107); Calcium 9.1 mg/dL (8.4-10.2); Carbon Dioxide 38 mmol/L (22-30); EST GLOMERULAR FILTRATION RATE > 60.0 ML/MIN; Glucose 218 mg/dL (74-106); MAGNESIUM 1.9 mg/dL (1.6-2.3); NT PRO BNP 239 pg/mL (0-900); Potassium 4.2 mmol/L (3.5-5.1); SGOT/AST 20 U/L (14-36); SGPT/ALT 15 U/L (0-35); SODIUM 137 mmol/L (137-145); Total Protein 7.9 g/dL (6.3-8.2)
[2022-09-11 08:43] LABS: Appearance Hazy (Clear)
[2022-09-11] MEDS ORDERED: VANCOMYCIN 1 GRAM/200 ML BAG 1 GM/200 ML PIGGYBACK IV ONE ×2 (08:44→09:31)
[2022-09-11 08:45] LABS: Bacteria Many /HPF (None Seen); Epithelial Cells Few /HPF (None Seen); RBC 0-2 /HPF (0-5); WBC 0-2 /HPF (0-5)
[2022-09-11 08:46] LABS: ADD URINE CULTURE? NO (NO)
--- NOTE | 2022-09-11 09:16 | XRAY ---
Indication: Short of breath. Leg swelling. Comparison: March 30, 2022 Portable apical lordotic chest again demonstrate borderline cardiomegaly obscuring left lung base. Stable mild left mid to lower lung linear subsegmental atelectasis/scarring. Bony thorax intact. No new/acute findings.
[2022-09-11] MEDS ORDERED: Lasix 40 MG/4 ML ONE (10:10)
[2022-09-11] MEDS ORDERED: Zofran 4 MG/2 ML VIAL IV PRN (10:39)
[2022-09-11] MEDS: ENOXAPARIN SODIUM SQ SCH (12:18)
[2022-09-11] MEDS: AZACTAM 1 GM*** 1 GM in Sodium Chloride 100ML MINI-BAG PLUS 100 ML IV SCH ×2 (12:19→18:18)
[2022-09-11] MEDS ORDERED: PROVENTIL 2.5 MG/3 ML NEB IH ONE (13:21)
[2022-09-11] MEDS: PROVENTIL 2.5 MG/3 ML NEB IH SCH ×2 (13:38→19:08)
[2022-09-11] MEDS: ULTRAM 50 MG PO PRN (13:40)
[2022-09-11] MEDS: NORVASC 5 MG PO SCH ×2 (13:40→22:23)
[2022-09-11] MEDS: Cozaar 50 MG PO SCH ×2 (13:40→22:23)
[2022-09-11] MEDS: Pepcid 20 MG PO SCH (13:40)
[2022-09-11] MEDS: Lasix 40 MG PO SCH (13:40)
[2022-09-11] MEDS: Klor Con PO SCH (13:40)
[2022-09-11] MEDS: JARDIANCE PO SCH (13:41)
[2022-09-11] MEDS: SILVADENE 50 GM TP SCH ×2 (13:41→22:23)
[2022-09-11] MEDS ORDERED: DUONEB 0.5-3 MG/3 ml Neb IH SCH (15:00)
[2022-09-11] MEDS ORDERED: NON-FORMULARY ITEM (Ropinirole Hcl [Requip] 1 MG Tablet) PO SCH (15:00)
[2022-09-11] MEDS: HUMULIN R SQ PRN (18:04)
[2022-09-11] MEDS: Acidophilus TABLET PO SCH ×2 (18:06→22:23)
[2022-09-11] MEDS: Glucophage 500 MG PO SCH (18:06)
[2022-09-11] MEDS: REQUIP 2MG TAB PO SCH ×2 (18:06→22:23)
[2022-09-11] MEDS: VANCOMYCIN 1 GRAM/200 ML BAG 1 GM/200 ML PIGGYBACK IV SCH (22:23)
[2022-09-12] MEDS: TYLENOL 325 MG PO PRN ×2 (00:24→19:39)
[2022-09-12] MEDS: AZACTAM 1 GM*** 1 GM in Sodium Chloride 100ML MINI-BAG PLUS 100 ML IV SCH ×4 (00:25→17:37)
[2022-09-12 06:14] LABS: Absolute Neutrophil Ct (ANC) 4.99 x10^3/uL (1.4-6.9); BASOPHIL % 0.3 % (0.0-0.4); Basophil (Absolute #) 0.02 x10^3/uL (0-0.4); Eosinophil % 0.8 % (0.00-5.0); Eosinophil (Absolute #) 0.06 x10^3/uL (0-0.5); Hematocrit 38.4 % (35-47); Hemoglobin 10.9 g/dL (12.0-16.0); IMMATURE GRAN # 0.03 x10^3u/L (0.00-0.03); IMMATURE GRAN % 0.4 % (0.00-0.4); Lymphocyte (Absolute #) 1.72 x10^3/uL (1.0-4.6); Mean Cell Volume 95.5 fL (78-100); Mean Corpuscular Hemoglobin 27.1 pg (26-32); Mean Corpuscular Hgb Concent. 28.4 g/dL (32-36); Mean Platelet Volume 10.1 fL (7.5-11.0); Monocyte (Absolute #) 0.66 x10^3/uL (0.0-1.3); Monocytes % 8.8 % (0.0-12.0); Neutrophil % 66.7 % (36.0-66.0); Platelet Count 241 x10^3/uL (150-450); Red Blood Count 4.02 x10^6/uL (4.1-5.4); Red Cell Distribution Width 15.4 % (11.5-14.0); White Blood Count 7.5 x10^3/uL (4.0-10.5)
[2022-09-12] MEDS: ULTRAM 50 MG PO PRN ×2 (06:35→14:00)
[2022-09-12 07:08] LABS: ALBUMIN 3.3 g/dL (3.5-5.0); ALKALINE PHOSPHATASE 64 U/L (38-126); ANION GAP 5.8 MEQ/L (5-15); BLOOD UREA NITROGEN 27 mg/dL (7-17); CHLORIDE 96 mmol/L (98-107); Calcium 8.5 mg/dL (8.4-10.2); Carbon Dioxide 39 mmol/L (22-30); Creatinine 1 0.85 mg/dL (0.52-1.04); EST GLOMERULAR FILTRATION RATE > 60.0 ML/MIN; Glucose 172 mg/dL (74-106); NT PRO BNP 281 pg/mL (0-900); Potassium 3.8 mmol/L (3.5-5.1); SGOT/AST 15 U/L (14-36); SGPT/ALT 13 U/L (0-35); SODIUM 137 mmol/L (137-145)
[2022-09-12] MEDS: PROVENTIL 2.5 MG/3 ML NEB IH SCH ×3 (07:41→19:04)
[2022-09-12] MEDS: Acidophilus TABLET PO SCH ×3 (09:49→21:22)
[2022-09-12] MEDS: NORVASC 5 MG PO SCH ×2 (09:50→21:22)
[2022-09-12] MEDS: Glucophage 500 MG PO SCH ×2 (09:50→17:38)
[2022-09-12] MEDS: REQUIP 2MG TAB PO SCH ×3 (09:50→21:22)
[2022-09-12] MEDS: Pepcid 20 MG PO SCH (09:50)
[2022-09-12] MEDS: Lasix 40 MG PO SCH (09:51)
[2022-09-12] MEDS: ENOXAPARIN SODIUM SQ SCH (09:51)
[2022-09-12] MEDS: Klor Con PO SCH (09:51)
[2022-09-12] MEDS: VANCOMYCIN 1 GRAM/200 ML BAG 1 GM/200 ML PIGGYBACK IV SCH ×2 (09:51→21:44)
[2022-09-12] MEDS: Cozaar 50 MG PO SCH ×2 (09:53→21:23)
[2022-09-12] MEDS: Nicoderm CQ 21 MG TOP SCH (10:08)
[2022-09-12] MEDS ORDERED: Klor Con PO ONE (12:15)
[2022-09-12] MEDS ORDERED: Lasix 40 MG/4 ML IV ONE (12:16)
[2022-09-12] MEDS: JARDIANCE PO SCH (13:26)
[2022-09-12] MEDS: Sodium Chloride 0.9% W/ 20 mEq KCl/LITER 1,000 ML IV SCH (13:27)
[2022-09-12] MEDS: SILVADENE 50 GM TP SCH ×2 (13:40→21:47)
[2022-09-12] MEDS: HUMULIN R SQ PRN ×2 (17:38→21:23)
[2022-09-13] MEDS: AZACTAM 1 GM*** 1 GM in Sodium Chloride 100ML MINI-BAG PLUS 100 ML IV SCH ×5 (00:03→23:12)
[2022-09-13] MEDS: PROVENTIL 2.5 MG/3 ML NEB IH SCH ×3 (07:49→18:57)
[2022-09-13] MEDS: HUMULIN R SQ PRN ×4 (07:50→20:47)
[2022-09-13] MEDS: Glucophage 500 MG PO SCH ×2 (07:50→17:22)
[2022-09-13 08:01] LABS: Appearance Clear (Clear); Bilirubin Negative (Negative); Blood Negative (Negative); Glucose >=1000 mg/dL (Negative); Ketones Negative (Negative); Leukocyte Esterase Negative (Negative); Nitrite Negative (Negative); Ph 5.5 (4.6-8.0); Protein,Urine Dip 100 (Negative); Specific Gravity 1.025 (1.005-1.030); Urobilinogen 0.2 mg/dL (0.2)
[2022-09-13 08:20] LABS: Bacteria None Seen /HPF (None Seen); Epithelial Cells None Seen /HPF (None Seen); Hyaline Casts 0-2 /LPF (0-2); RBC 0-2 /HPF (0-5)
[2022-09-13 08:27] LABS: ADD URINE CULTURE? NO (NO)
[2022-09-13] MEDS: ENOXAPARIN SODIUM SQ SCH (09:21)
[2022-09-13] MEDS: Lasix 40 MG PO SCH (09:22)
[2022-09-13] MEDS: Acidophilus TABLET PO SCH ×3 (09:22→20:45)
[2022-09-13] MEDS: Cozaar 50 MG PO SCH ×2 (09:22→20:45)
[2022-09-13] MEDS: REQUIP 2MG TAB PO SCH ×3 (09:23→20:46)
[2022-09-13] MEDS: Pepcid 20 MG PO SCH (09:23)
[2022-09-13] MEDS: Klor Con PO SCH (09:24)
[2022-09-13] MEDS: NORVASC 5 MG PO SCH ×2 (09:24→20:45)
[2022-09-13] MEDS: Nicoderm CQ 21 MG TOP SCH (09:25)
[2022-09-13] MEDS: JARDIANCE PO SCH (09:26)
[2022-09-13] MEDS: SILVADENE 50 GM TP SCH ×2 (09:26→20:46)
[2022-09-13] MEDS: ULTRAM 50 MG PO PRN (09:27)
[2022-09-13] MEDS ORDERED: TROUGH DRUG LEVELS IJ ONE (09:30)
[2022-09-13] MEDS: VANCOMYCIN 1 GRAM/200 ML BAG 1 GM/200 ML PIGGYBACK IV SCH ×3 (09:34→21:17)
[2022-09-13] MEDS: NYSTOP POWDER 15 GM TP SCH ×2 (13:15→20:45)
[2022-09-13] MEDS: Sodium Chloride 0.9% W/ 20 mEq KCl/LITER 1,000 ML IV SCH (13:38)
[2022-09-13] MEDS: TYLENOL 325 MG PO PRN (18:59)
[2022-09-14] MEDS: TYLENOL 325 MG PO PRN ×2 (02:25→11:22)
[2022-09-14] MEDS: ULTRAM 50 MG PO PRN ×3 (03:55→21:09)
[2022-09-14] MEDS: AZACTAM 1 GM*** 1 GM in Sodium Chloride 100ML MINI-BAG PLUS 100 ML IV SCH ×2 (05:25→11:22)
[2022-09-14 05:30] LABS: Hematocrit 35.1 % (35-47); Hemoglobin 10.3 g/dL (12.0-16.0); Mean Cell Volume 94.6 fL (78-100); Mean Corpuscular Hemoglobin 27.8 pg (26-32); Mean Corpuscular Hgb Concent. 29.3 g/dL (32-36); Mean Platelet Volume 10.3 fL (7.5-11.0); Platelet Count 227 x10^3/uL (150-450); Red Blood Count 3.71 x10^6/uL (4.1-5.4); Red Cell Distribution Width 15.2 % (11.5-14.0); White Blood Count 6.3 x10^3/uL (4.0-10.5)
[2022-09-14 06:04] LABS: ANION GAP 5.6 MEQ/L (5-15); BLOOD UREA NITROGEN 24 mg/dL (7-17); CHLORIDE 102 mmol/L (98-107); Calcium 8.4 mg/dL (8.4-10.2); Carbon Dioxide 35 mmol/L (22-30); Creatinine 1 0.65 mg/dL (0.52-1.04); EST GLOMERULAR FILTRATION RATE > 60.0 ML/MIN; Glucose 182 mg/dL (74-106); Potassium 4.2 mmol/L (3.5-5.1); SODIUM 138 mmol/L (137-145)
[2022-09-14] MEDS: PROVENTIL 2.5 MG/3 ML NEB IH SCH ×3 (06:53→18:51)
[2022-09-14] MEDS: REQUIP 2MG TAB PO SCH ×3 (09:17→21:08)
[2022-09-14] MEDS: SILVADENE 50 GM TP SCH ×2 (09:17→22:26)
[2022-09-14] MEDS: Klor Con PO SCH ×2 (09:18→21:07)
[2022-09-14] MEDS: Glucophage 500 MG PO SCH ×2 (09:18→17:33)
[2022-09-14] MEDS: Pepcid 20 MG PO SCH (09:18)
[2022-09-14] MEDS: Lasix 40 MG PO SCH (09:18)
[2022-09-14] MEDS: Nicoderm CQ 21 MG TOP SCH (09:18)
[2022-09-14] MEDS: Cozaar 50 MG PO SCH ×2 (09:18→21:07)
[2022-09-14] MEDS: Acidophilus TABLET PO SCH ×3 (09:18→21:07)
[2022-09-14] MEDS: NORVASC 5 MG PO SCH ×2 (09:18→21:08)
[2022-09-14] MEDS: JARDIANCE PO SCH (09:19)
[2022-09-14] MEDS: ENOXAPARIN SODIUM SQ SCH (09:19)
[2022-09-14] MEDS: NYSTOP POWDER 15 GM TP SCH ×2 (09:19→21:08)
[2022-09-14] MEDS: VANCOMYCIN 1 GRAM/200 ML BAG 1 GM/200 ML PIGGYBACK IV SCH (09:29)
[2022-09-14] MEDS: HUMULIN R SQ PRN (12:04)
[2022-09-14] MEDS: Merrem 1 GM in Sodium Chloride 100ML MINI-BAG PLUS 100 ML IV SCH ×2 (16:18→22:26)
[2022-09-14] MEDS: Sodium Chloride 0.9% W/ 20 mEq KCl/LITER 1,000 ML IV SCH (16:18)
--- NOTE | 2022-09-14 17:57 | PCM.NOTE ---
Date and Time: 09/14/22 175 Subjective Assessment: Venous stasis with cellulitis BLE ,culture is back -will change to single med Merrem. Objective Exam General Appearance: no apparent distress Neurologic Exam: alert, 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, cooperative Skin Exam: normal color, warm, dry Wound Assessment: Skin/Wound Assessment Wound/Incision Assessment Start: 09/11/22 12:00 Text: Status: Active Freq: Q6H Protocol: Document 09/14/22 12:00 (Rec: 09/14/22 12:20 [id number]) Wound/Incision Assessment Right Lower Calf Wound Assessment Shift Assessment Wound Type cellulitis Wound Stage Non Pressure Wound Drainage Odor Foul Odor Primary Dressing Non-Adherent Gauze Pads Secondary Dressing Gauze Roll/Wrap Comment DRESSING IN PLACE, CDI Left Lower Calf Wound Assessment Shift Assessment Wound Type cellulitis Wound Stage Non Pressure Wound Dressing Status Dry & Intact Drainage Amount None Drainage Odor Foul Odor Primary Dressing Non-Adherent Gauze Pads Secondary Dressing Gauze Roll/Wrap Comment DRESSING IN PLACE, DCI Respiratory Exam: crackles/rales (bibasilar) Cardiovascular Exam: regular rate/rhythm Extremity Exam: pedal edema, swelling, tenderness (BLE loosley wrapped for cellulitis) OBJECTIVE DATA Vital Signs: Vital Signs - 24 hr Temp Pulse Resp BP Pulse Ox 09/14/22 16:00 97.8 F 86 18 128/59 96 09/14/22 13:22 82 20 94 L 09/14/22 12:00 97.8 F 82 20 135/65 94 L 09/14/22 07:20 97.7 F 90 22 145/65 94 L 09/14/22 06:55 86 20 95 09/14/22 04:00 97.9 F 91 H 21 154/73 96 09/14/22 00:00 97.8 F 95 H 23 148/66 94 L 09/13/22 20:00 97.5 F 107 H 23 139/63 90 L 09/13/22 18:57 98 H 20 95 Pain Assessment - Last Documented Pain Intensity 6 Pain Scale Used [facility] Intake and Output: Intake & Output 09/12/22 09/13/22 09/14/22 09/15/22 11:59 11:59 11:59 11:59 Intake Total 2350 4287 3856 300 Output Total 1600 3400 2950 Balance 750 887 906 300 Weight 109 kg 107.4 kg Lab Results: Lab Results-Last 24 Hours 09/13/22 09/14/22 09/14/22 Range/Units 20:37 04:48 04:48 WBC 6.3 (4.0-10.5) x10^3/uL RBC 3.71 L (4.1-5.4) x10^6/uL Hgb 10.3 L (12.0-16.0) g/dL Hct 35.1 (35-47) % MCV 94.6 (78-100) fL MCH 27.8 (26-32) pg MCHC 29.3 L (32-36) g/dL RDW 15.2 H (11.5-14.0) % Plt Count 227 (150-450) x10^3/uL MPV 10.3 (7.5-11.0) fL Sodium 138 (137-145) mmol/L Potassium 4.2 (3.5-5.1) mmol/L Chloride 102 (98-107) mmol/L Carbon Dioxide 35 H (22-30) mmol/L Anion Gap 5.6 (5-15) MEQ/L BUN 24 H (7-17) mg/dL Creatinine 0.65 (0.52-1.04) mg/dL Estimated GFR > 60.0 ML/MIN Glucose 182 H (74-106) mg/dL POC Glucometer 285 H (74 to 106) mg/dL Calcium 8.4 (8.4-10.2) mg/dL 09/14/22 09/14/22 09/14/22 Range/Units 07:05 11:47 17:09 WBC (4.0-10.5) x10^3/uL RBC (4.1-5.4) x10^6/uL Hgb (12.0-16.0) g/dL Hct (35-47) % MCV (78-100) fL MCH (26-32) pg MCHC (32-36) g/dL RDW (11.5-14.0) % Plt Count (150-450) x10^3/uL MPV (7.5-11.0) fL Sodium (137-145) mmol/L Potassium (3.5-5.1) mmol/L Chloride (98-107) mmol/L Carbon Dioxide (22-30) mmol/L Anion Gap (5-15) MEQ/L BUN (7-17) mg/dL Creatinine (0.52-1.04) mg/dL Estimated GFR ML/MIN Glucose (74-106) mg/dL POC Glucometer 172 H 174 H 177 H (74 to 106) mg/dL Calcium (8.4-10.2) mg/dL Multi-Disciplinary Progress Notes: Multi-Disciplinary Progress Notes 09/14/22 16:13 Physical Therapy Note by Fern(Roxane#[id number])Rupa PT. IN BED THIS PM. AGREEABLE TO PERFORM ED EX'S W/ P.T. RATES LL PN AT 6/10. PT. VERY SLEEPY AND WAS DIFFICULT TO AROUSE UPON P.T. ARRIVAL TO ROOM. PERFORMED LE AAROM OF HEEL SLIDES, ANKLE PUMPS, QUAD SETS, AND SLRS. DID NOT FE EL PT. WAS SAFE TO GET OUT OF BED THIS AFTERNOON D/T LEVEL OF LETHARGY. WILL CONT. P.T. 5X/WK TO PREP FOR REHAB STAY. Initialized on 09/14/22 16:13 - END OF NOTE 09/14/22 15:26 Case Management Note by Alicia Palacios UPDATED CLINICAL [facility] ARE REVIEWING THEN WILL START P RECERT SOON POSSIBLE Initialized on 09/14/22 15:26 - END OF NOTE 09/14/22 11:15 Physical Therapy Note by Fern(L#[id number])Rupa PT. WAS SEEN BY P.T. THIS A.M. PT. IN BEDSIDE CHAIR UPON P.T. ARRIVAL TO ROOM. ALERT AND ORIENTED. REPORTS BILATERAL LL PN AT 6/10 W/ PN MEDS. PT. ON 5 L O2 AND IV IN PLACE. DRESSINGS INTACT AND CHANGED BY NSG OVER THE WEEKEND. REMOVED DRESSINGS, CLEANSED LLS W/ SOAP AND WATER AND WASHCLOTH. PT. NOTES PN W/ CLEANSING. R LE PRESENTS W/ LARGE RED AREA ANTERIOR AND MEDIAL/LATERAL LL; AREA OF TIGHT YELLOW SLOUGH NOTED ON LATERAL ASPECTS OF WOUND. SOAKED OPEN AREAS W/ DILUTED HIBICLENS. L LL CLEANSED W/ SAME PROCESS. SMALLER OPEN AREA ANTERIOR LL W/ DIME SIZE AREA COVERED W/ YELLOW SLOUGH. APPLIED ZINC OXIDE CREAM TO RED AREAS, BARRIER CREAM APPLIED TO REST OF LLS. DRESSED W/ TELFA AND ABD, SECURED BY KERLIX R LL AND TELFA AND KERLIX L LL. PT. WANTED TO RETURN TO BED AFTER DRESSING CHANGE. PERFORMED SIT TO STAND W/ MIN ASSIST W/ RW IN FRONT OF HER. AMBULATED 3-4 STEPS TO BED W/ RW AND MIN ASSIST W/ VERY SHORT STRIDE AND SLOW PACE. PT. REQUIRED MOD ASSIST TO STEP ONTO STEP STOOL TO TRANSFER TO BARIATRIC BED. MOD ASSIST ALSO REQUIRED FOR SIT TO SUPINE TRANSFER. O2 SATS 95% ON 5 L. PT. LEFT IN BED W/ O2 AND IV IN PLACE AND CALL LIGHT IN REACH. WILL CONT. P.T. 5X/WK TO PREP FOR REHAB STAY. CONT. TO RECOMMEND SNF PLACEMENT FOR REHAB AND W/C. Addendum entered and electronically signed by Fern(L#[id number])Rupa PT 09/14/22 13:43: BILATERAL LL DRESSINGS SHOULD BE CHANGED DAILY NOTED ABOVE OR IF SOILED BETWEEN DAILY DRESSING CHANGES. Initialized on 09/14/22 11:15 - END OF NOTE Assessment/Plan (1) Cellulitis of both lower extremities Current Visit: Yes Status: Acute Assessment & Plan: antibiotic changed to Merrem, improved Code(s): L03.115 - CELLULITIS OF RIGHT LOWER LIMB; L03.116 - CELLULITIS OF LEFT LOWER LIMB (2) Chronic venous stasis dermatitis Current Visit: Yes Status: Chronic Code(s): I87.2 - VENOUS INSUFFICIENCY (CHRONIC) (PERIPHERAL) (3) Fluid overload Current Visit: Yes Status: Acute Assessment & Plan: IV lasix and saline lock IV,monitor Code(s): E87.70 - FLUID OVERLOAD, UNSPECIFIED
[2022-09-14] MEDS ORDERED: Sodium Chloride 0.9% 10 ML FLUSH Syringe IV PRN (18:58)
[2022-09-14] MEDS ORDERED: Lasix 20 MG/2 ML IV SCH (19:00)
[2022-09-15] MEDS: Merrem 1 GM in Sodium Chloride 100ML MINI-BAG PLUS 100 ML IV SCH ×3 (05:04→20:52)
[2022-09-15 05:55] LABS: Hematocrit 34.8 % (35-47); Hemoglobin 9.7 g/dL (12.0-16.0); Mean Cell Volume 96.4 fL (78-100); Mean Corpuscular Hemoglobin 26.9 pg (26-32); Mean Corpuscular Hgb Concent. 27.9 g/dL (32-36); Mean Platelet Volume 9.7 fL (7.5-11.0); Platelet Count 233 x10^3/uL (150-450); Red Blood Count 3.61 x10^6/uL (4.1-5.4); Red Cell Distribution Width 15.1 % (11.5-14.0); White Blood Count 7.1 x10^3/uL (4.0-10.5)
[2022-09-15] MEDS: ULTRAM 50 MG PO PRN ×3 (06:38→20:53)
[2022-09-15] MEDS: PROVENTIL 2.5 MG/3 ML NEB IH SCH ×3 (06:42→18:56)
[2022-09-15 06:59] LABS: ANION GAP 5.3 MEQ/L (5-15); BLOOD UREA NITROGEN 21 mg/dL (7-17); CHLORIDE 100 mmol/L (98-107); Calcium 8.7 mg/dL (8.4-10.2); Carbon Dioxide 38 mmol/L (22-30); Creatinine 1 0.69 mg/dL (0.52-1.04); EST GLOMERULAR FILTRATION RATE > 60.0 ML/MIN; Glucose 183 mg/dL (74-106); Potassium 4.2 mmol/L (3.5-5.1); SODIUM 139 mmol/L (137-145)
[2022-09-15 07:24] LABS: Slide Review YES
[2022-09-15] MEDS: REQUIP 2MG TAB PO SCH ×3 (08:14→20:53)
[2022-09-15] MEDS: ENOXAPARIN SODIUM SQ SCH (08:14)
[2022-09-15] MEDS: Pepcid 20 MG PO SCH (08:14)
[2022-09-15] MEDS: Cozaar 50 MG PO SCH ×2 (08:15→20:52)
[2022-09-15] MEDS: Glucophage 500 MG PO SCH ×2 (08:15→16:30)
[2022-09-15] MEDS: Acidophilus TABLET PO SCH ×3 (08:15→20:52)
[2022-09-15] MEDS: Klor Con PO SCH ×2 (08:15→20:52)
[2022-09-15] MEDS: NORVASC 5 MG PO SCH ×2 (08:15→20:53)
[2022-09-15] MEDS: HUMULIN R SQ PRN ×3 (08:16→20:55)
[2022-09-15] MEDS: JARDIANCE PO SCH (08:17)
[2022-09-15] MEDS: Nicoderm CQ 21 MG TOP SCH (08:28)
[2022-09-15] MEDS: Lasix 40 MG PO SCH (10:20)
[2022-09-15] MEDS: NYSTOP POWDER 15 GM TP SCH ×2 (12:38→20:53)
[2022-09-15] MEDS: SILVADENE 50 GM TP SCH ×3 (16:17→23:08)
[2022-09-15] MEDS: TYLENOL 325 MG PO PRN (23:11)
[2022-09-16] MEDS: TYLENOL 325 MG PO PRN ×2 (03:08→06:43)
[2022-09-16] MEDS: PROVENTIL 2.5 MG/3 ML NEB IH SCH ×3 (05:20→19:01)
[2022-09-16] MEDS: Merrem 1 GM in Sodium Chloride 100ML MINI-BAG PLUS 100 ML IV SCH ×3 (05:46→21:46)
[2022-09-16] MEDS: Glucophage 500 MG PO SCH ×2 (08:17→17:18)
[2022-09-16] MEDS: ULTRAM 50 MG PO PRN ×3 (08:17→21:41)
[2022-09-16] MEDS: Acidophilus TABLET PO SCH ×3 (10:00→21:41)
[2022-09-16] MEDS: Lasix 40 MG PO SCH (10:00)
[2022-09-16] MEDS: REQUIP 2MG TAB PO SCH ×3 (10:00→21:41)
[2022-09-16] MEDS: NORVASC 5 MG PO SCH ×2 (10:00→21:44)
[2022-09-16] MEDS: Pepcid 20 MG PO SCH (10:00)
[2022-09-16] MEDS: ENOXAPARIN SODIUM SQ SCH (10:01)
[2022-09-16] MEDS: Nicoderm CQ 21 MG TOP SCH (10:01)
[2022-09-16] MEDS: JARDIANCE PO SCH (10:01)
[2022-09-16] MEDS: Klor Con PO SCH ×2 (10:01→21:44)
[2022-09-16] MEDS: Cozaar 50 MG PO SCH ×2 (10:01→21:44)
[2022-09-16] MEDS: NYSTOP POWDER 15 GM TP SCH ×2 (10:02→21:43)
[2022-09-16] MEDS: SILVADENE 50 GM TP SCH (11:32)
[2022-09-16] MEDS: HUMULIN R SQ PRN ×3 (12:22→21:43)
[2022-09-17] MEDS: PROVENTIL 2.5 MG/3 ML NEB IH SCH ×3 (05:21→18:45)
[2022-09-17] MEDS: Merrem 1 GM in Sodium Chloride 100ML MINI-BAG PLUS 100 ML IV SCH ×4 (05:31→22:02)
[2022-09-17] MEDS: ULTRAM 50 MG PO PRN ×2 (05:51→13:20)
[2022-09-17] MEDS: Glucophage 500 MG PO SCH ×2 (08:25→17:13)
[2022-09-17] MEDS: HUMULIN R SQ PRN ×2 (08:26→17:13)
[2022-09-17] MEDS: Acidophilus TABLET PO SCH ×3 (09:50→22:02)
[2022-09-17] MEDS: Lasix 40 MG PO SCH (09:50)
[2022-09-17] MEDS: Cozaar 50 MG PO SCH ×2 (09:51→22:01)
[2022-09-17] MEDS: NORVASC 5 MG PO SCH ×2 (09:51→22:00)
[2022-09-17] MEDS: REQUIP 2MG TAB PO SCH ×3 (09:51→22:01)
[2022-09-17] MEDS: Pepcid 20 MG PO SCH (09:51)
[2022-09-17] MEDS: ENOXAPARIN SODIUM SQ SCH (09:54)
[2022-09-17] MEDS: Klor Con PO SCH ×2 (09:54→22:01)
[2022-09-17] MEDS: Nicoderm CQ 21 MG TOP SCH (09:54)
[2022-09-17] MEDS: JARDIANCE PO SCH (09:54)
[2022-09-17] MEDS: NYSTOP POWDER 15 GM TP SCH ×2 (09:55→22:07)
[2022-09-17] MEDS: Aricept 10 MG PO SCH (10:48)
[2022-09-18] MEDS: Merrem 1 GM in Sodium Chloride 100ML MINI-BAG PLUS 100 ML IV SCH ×2 (06:34→14:46)
[2022-09-18] MEDS: PROVENTIL 2.5 MG/3 ML NEB IH SCH ×2 (06:57→14:00)
[2022-09-18] MEDS: Acidophilus TABLET PO SCH ×2 (08:50→15:00)
[2022-09-18] MEDS: Aricept 10 MG PO SCH (08:50)
[2022-09-18] MEDS: REQUIP 2MG TAB PO SCH ×2 (08:50→15:00)
[2022-09-18] MEDS: JARDIANCE PO SCH (08:51)
[2022-09-18] MEDS: Lasix 40 MG PO SCH (08:51)
[2022-09-18] MEDS: Klor Con PO SCH (08:51)
[2022-09-18] MEDS: NORVASC 5 MG PO SCH (08:51)
[2022-09-18] MEDS: ENOXAPARIN SODIUM SQ SCH (08:51)
[2022-09-18] MEDS: Pepcid 20 MG PO SCH (08:51)
[2022-09-18] MEDS: Cozaar 50 MG PO SCH (08:51)
[2022-09-18] MEDS: Glucophage 500 MG PO SCH (08:51)
[2022-09-18] MEDS: Nicoderm CQ 21 MG TOP SCH (08:52)
[2022-09-18] MEDS: ULTRAM 50 MG PO PRN (08:55)
[2022-09-18] MEDS: NYSTOP POWDER 15 GM TP SCH (09:00)
[2022-09-18 15:56] VITALS: BP 153/67; PULSE 89; O2SAT 95
--- NOTE | 2022-09-28 21:32 | PCM.HP ---
History of Present Illness - Chief Complaint Chief Complaint: CELLULITIS BLE Date: 09/12/22 History of Present Illness: is a 66 year old female. presented to er after several days of increasing pain and redness to bilateral lower extremities. Pt. was found to have cellulitis and admitted for iv antibiotics. - Review of Systems Constitutional: No Fever, No Chills Eyes: No Symptoms Ears, Nose, & Throat: No Symptoms Respiratory: No Cough, No Short Of Breath Cardiac: No Chest Pain, No Edema, No Syncope Abdominal/Gastrointestinal: No Abdominal Pain, No Nausea, No Vomiting, No Diarrhea Genitourinary Symptoms: No Dysuria Musculoskeletal: No Back Pain, No Neck Pain Skin: Cellulitis, Induration, No Rash Neurological: No Dizziness, No Focal Weakness, No Sensory Changes Psychological: No Symptoms Endocrine: No Symptoms Hematologic/Lymphatic: No Symptoms Immunological/Allergic: No Symptoms Medications & Allergies Home Medications: Home Medication List Ropinirole HCl [Requip] 3 mg PO TID 03/05/14 [History Confirmed 09/11/22] Ipratropium/Albuterol Sulfate [Iprat-Albut 0.5-3(2.5) mg/3 ml] 1 neb IH QID 10/21/21 [History Confirmed 09/11/22] Empagliflozin [Jardiance] 10 mg PO DAILY #30 tablet 01/09/22 [Rx Confirmed 09/11/22] Metformin HCl 500 mg [Glucophage 500 MG] 500 mg PO BIDWM #60 tablet 01/09/22 [Rx Confirmed 09/11/22] Amlodipine Besylate 5 mg [Norvasc 5 mg] 5 mg PO BID 03/30/22 [History Confirmed 09/11/22] Famotidine 20 mg [Pepcid 20 MG] 40 mg PO DAILY 03/30/22 [History Confirmed 09/11/22] Furosemide 40 mg [Lasix 40 MG] 40 mg PO DAILY 03/30/22 [History Confirmed 09/11/22] Losartan Potassium 50 mg [Cozaar 50 MG] 50 mg PO BID 03/30/22 [History Confirmed 09/11/22] Potassium Chloride 10 meq PO DAILY 03/30/22 [History Confirmed 09/11/22] Lactobacillus Acidophilus [Acidophilus TABLET] 1 tab PO TID #21 tablet 04/03/22 [Rx Confirmed 09/11/22] Silver Sulfadiazine 50 gm [Silvadene 50 gm] 50 gm TP BID 7 Days #1 tu 06/28/22 [Rx Confirmed 09/11/22] Meropenem [Merrem] 1 gm IV Q8H 5 Days #15 iv piggy 09/18/22 [Rx] Allergies/Adverse Reactions: Allergies Allergy/AdvReac Type Severity Reaction Status Date / Time codeine Allergy Intermediate rash, Verified 09/11/22 05:23 itching cefaclor [From Ceclor] Allergy Mild Rash Verified 09/11/22 05:23 Penicillins Allergy Mild Swelling Verified 09/11/22 05:23 bacitracin AdvReac Mild Itching Verified 09/11/22 05:23 [From Neosporin ([id number])] bacitracin zinc AdvReac Mild Itching Verified 09/11/22 05:23 [From Neosporin ([id number])] levofloxacin [From Levaquin] AdvReac Mild itch Verified 09/11/22 05:23 neomycin sulfate AdvReac Mild itch Verified 09/11/22 05:23 [From Neosporin ([id number])] polymyxin B AdvReac Mild Itching Verified 09/11/22 05:23 [From Neosporin ([id number])] - Past Medical History Past Medical History: Yes Neurological History: No Pertinent History ENT History: No Pertinent History Cardiac History: Congestive Heart Failure, Hypertension, Peripheral Vascular Disease Respiratory History: COPD, Emphysema Endocrine Medical History: Diabetes Type II Musculoskelatal History: Arthritis, Fibromyalgia GI Medical History: No Pertinent History History: Other Pyscho-Social History: No Pertinent History Reproductive Disorders: No Pertinent History Comment: Stress Incontinence - Female History Are you now?: No - Past Surgical History Past Surgical History: Yes Neuro Surgical History: No Pertinent History Cardiac History: No Pertinent History Respiratory Surgery: No Pertinent History GI Surgical History: Cholecystectomy Genitourinary Surgical Hx: No Pertinent History Musculskeletal Surgical Hx: No Pertinent History Female Surgical History: Tubal Ligation - Social History Smoking Status: Current every day smoker How long have you smoked: 50 years Exposure to second hand smoke: Yes Alcohol: None Drug Use: none Significant Family History: no pertinent family hx - Physical Exam General Appearance: no apparent distress, alert Neurologic Exam: alert, 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, cooperative, normal mood/affect, nml cerebellar function, nml station & gait, sensation nml, No motor deficits Eye Exam: PERRL/EOMI, eyes nml inspection Ears, Nose, Throat Exam: normal ENT inspection, TMs normal, pharynx normal, moist mucous membranes Neck Exam: normal inspection, non-tender, supple, full range of motion Respiratory Exam: normal breath sounds, lungs clear, No respiratory distress Cardiovascular Exam: regular rate/rhythm, normal heart sounds, normal peripheral pulses Gastrointestinal/Abdomen Exam: soft, normal bowel sounds, No tenderness, No mass Back Exam: normal inspection, normal range of motion, No CVA tenderness, No vertebral tenderness Extremity Exam: normal inspection, normal range of motion, pelvis stable, swe lling, tenderness (chronic venous stasis changes and chronic lymphedema) Skin Exam: warm, dry, No rash Lymphatic Exam: No adenopathy Results - Labs Lab/Micro Results: Microbiology 09/11/22 07:45 Blood Culture Gram Stain - Final Blood Not Reportable Blood Culture - Final NO GROWTH 09/11/22 07:50 Blood Culture Gram Stain - Final Blood Not Reportable Blood Culture - Final NO GROWTH 09/11/22 13:30 Wound Culture - Final Drainage - Right Lateral Pseudomonas Aeruginosa Citrobacter Braakii Assessment/Plan (1) Bilateral lower leg cellulitis Status: Acute Code(s): L03.116 - CELLULITIS OF LEFT LOWER LIMB; L03.115 - CELLULITIS OF RIGHT LOWER LIMB (2) Fluid overload Status: Acute Code(s): E87.70 - FLUID OVERLOAD, UNSPECIFIED (3) Noncompliance Status: Acute Code(s): Z91.19 - PATIENT'S NONCOMPLIANCE W OTH MEDICAL TREATME NT AND REGIMEN (4) Chronic venous stasis dermatitis Status: Chronic Code(s): I87.2 - VENOUS INSUFFICIENCY (CHRONIC) (PERIPHERAL) (5) Type 2 diabetes mellitus Status: Chronic Qualifiers: Diabetes mellitus chcf insulin use: without chcf use
--- NOTE | 2022-10-02 19:47 | PCM.DS ---
Discharge Summary Date of Admission: 09/12/22 13:00 Date of Discharge: 09/18/2022 Admitting Physician: DEB ESQUIVEL Primary Care Provider: DEB ESQUIVEL Allergies Allergies codeine Allergy (Intermediate, Verified 09/11/22 05:23) rash, itching cefaclor [From Ceclor] Allergy (Mild, Verified 09/11/22 05:23) Rash Penicillins Allergy (Mild, Verified 09/11/22 05:23) Swelling bacitracin [From Neosporin ([id number])] Adverse Reaction (Mild, Verified 09/11/22 05:23) Itching bacitracin zinc [From Neosporin ([id number])] Adverse Reaction (Mild, Verified 09/11/22 05:23) Itching levofloxacin [From Levaquin] Adverse Reaction (Mild, Verified 09/11/22 05:23) itch neomycin sulfate [From Neosporin ([id number])] Adverse Reaction (Mild, Verified 09/11/22 05:23) itch polymyxin B [From Neosporin ([id number])] Adverse Reaction (Mild, Verified 09/11/22 05:23) Itching Hospital Summary - Hospital Course Hospital Course: Pt. improved, rapidly back to her baseline, most time spent in hospital related to awaiting insurance approval for rehab. - Vitals & Intake/Output Vital Signs: Vital Signs Temperature 97.8 F 09/18/22 15:55 Pulse Rate 89 09/18/22 15:55 Respiratory Rate 16 09/18/22 15:55 Blood Pressure 153/67 09/18/22 15:55 O2 Sat by Pulse Oximetry 95 09/18/22 15:55 - Lab Result Diagrams: 09/15/22 04:00 09/15/22 04:00 Micro Results-Entire Visit: Microbiology 09/11/22 07:45 Blood Culture Gram Stain - Final Blood Not Reportable Blood Culture - Final NO GROWTH 09/11/22 07:50 Blood Culture Gram Stain - Final Blood Not Reportable Blood Culture - Final NO GROWTH 09/11/22 13:30 Wound Culture - Final Drainage - Right Lateral Pseudomonas Aeruginosa Citrobacter Braakii - Procedures and Test Procedures and Tests throughout Hospitalization: Therapy Orders & Screens 09/11/22 10:39 PT Eval & Treat ( Order) ONCE Reason for Eval:: Range of motion, balance and increase stamina Diagnosis: Bilateral lower extremity pain, cellulitis Respiratory Therapy Consult ROUTINE Comment: Reason For Exam: 09/11/22 13:24 Respiratory Therapy Assessment DAILY Comment: Diagnosis: CELLULITIS 09/11/22 13:25 Oxygen NASAL CANNULA 5 lpm Comment: Diagnosis: CELLULITIS 09/11/22 14:44 PT Eval & Treat (MD Order) ONCE Reason for Eval:: Consult wound care nurse for evaluation and management of bilateral lower extremity venous stasis disease Diagnosis: CELLULITIS Discharge Exam General Appearance: no apparent distress, alert Neurologic Exam: alert, 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, cooperative, normal mood/affect, nml cerebellar function, sensation nml, No motor deficits Eye Exam: PERRL, EOMI, eyes nml inspection Ears, Nose, Throat Exam: normal ENT inspection, pharynx normal, moist mucous membranes Neck Exam: normal inspection, non-tender, supple, full range of motion Respiratory Exam: normal breath sounds, lungs clear, No respiratory distress Cardiovascular Exam: regular rate/rhythm, normal heart sounds Gastrointestinal/Abdomen Exam: soft, No tenderness, No mass Pelvic Exam: deferred Rectal Exam: deferred Back Exam: normal inspection, normal range of motion, No CVA tenderness, No vertebral tenderness Extremity Exam: pedal edema (chronic venous stasis changes) Skin Exam: normal color, warm, dry Final Diagnosis/Problem List - Final Discharge Diagnosis/Problem (1) Bilateral lower leg cellulitis Status: Acute Code(s): L03.116 - CELLULITIS OF LEFT LOWER LIMB; L03.115 - CELLULITIS OF RIGHT LOWER LIMB (2) Fluid overload Status: Acute Code(s): E87.70 - FLUID OVERLOAD, UNSPECIFIED (3) Noncompliance Status: Acute Code(s): Z91.19 - PATIENT'S NONCOMPLIANCE W OTH MEDICAL TREATMENT AND REGIMEN (4) Chronic venous stasis dermatitis Status: Chronic Code(s): I87.2 - VENOUS INSUFFICIENCY (CHRONIC) (PERIPHERAL) (5) Type 2 diabetes mellitus Status: Chronic Priority: High - Discharge Discharge Date: 09/18/22 Disposition: DC TO ANY "OTHER" CORRECTION Condition: Stable Prescriptions: New Meropenem [Merrem] 1 gm IV Q8H 5 Days #15 iv piggy Continue Ropinirole HCl [Requip] 3 mg PO TID Ipratropium/Albuterol Sulfate [Iprat-Albut 0.5-3(2.5) mg/3 ml] 1 neb IH QID Metformin HCl 500 mg [Glucophage 500 MG] 500 mg PO BIDWM #60 tablet Empagliflozin [Jardiance] 10 mg PO DAILY #30 tablet Potassium Chloride 10 meq PO DAILY Losartan Potassium 50 mg [Cozaar 50 MG] 50 mg PO BID Furosemide 40 mg [Lasix 40 MG] 40 mg PO DAILY Famotidine 20 mg [Pepcid 20 MG] 40 mg PO DAILY Amlodipine Besylate 5 mg [Norvasc 5 mg] 5 mg PO BID Lactobacillus Acidophilus [Acidophilus TABLET] 1 tab PO TID #21 tablet Silver Sulfadiazine 50 gm [Silvadene 50 gm] 50 gm TP BID 7 Days #1 tu Additional Instructions: CORRECTION ORDERS: ADMIT TO [facility] HOME [facility] 1999 MAR ADA DIET ACHS ACCU CHECKS 5L/NC 24/ PT/OT EVAL AND TREAT DAILY DRESSING CHANGES TO BLE (SEE PT NOTE FOR REGIMEN) SEE ATTACHED MED LIST Forms: Transfer Record Halfway
== END 2022-09-18 16:22 | DRG 603 ==
LOC: ED 04:52 → MED SURG 10:21 → INTOOBSV 09-12 11:00 → OBSVTOIN 09-12 11:00
PROVIDERS: ADMIT Family Medicine; ATTEND Family Medicine
DX: L03.116 Cellulitis of left lower limb (principal); J96.10 Chronic respiratory failure, unspecified whether with hypoxia or hypercapnia; L03.115 Cellulitis of right lower limb; I87.2 Venous insufficiency (chronic) (peripheral); E87.70 Fluid overload, unspecified; R53.1 Weakness; I11.0 Hypertensive heart disease with heart failure; I50.9 Heart failure, unspecified; E78.5 Hyperlipidemia, unspecified; E11.9 Type 2 diabetes mellitus without complications; Z20.828 Contact with and (suspected) exposure to other viral communicable diseases; Z79.899 Other long term (current) drug therapy; Z72.0 Tobacco use; Z91.14 Patient's other noncompliance with medication regimen
CPT/HCPCS: 0241U; 36415; 71045; 80048; 80053; 80202; 81001; 82947; 83036; 83605; 83735; 83880; 84145; 84484; 85025; 85027; 87040; 87070; 87077; 87186; 93268; 94640; 94760; 96365; 96374; 96375; 97110; 97161; 97530; 97597; 97598; 99284; G0378; J1650; J1815; J1940; J2270; J2405; J7609; A9270-GY; J3370

== ENCOUNTER 2022-11-27 16:44 | Emergency (ER) | payer MEDICARE ==
--- NOTE | 2022-11-27 16:48 | ERPHSYRPT ---
- History of Present Illness Time Seen by Provider: 11/27/22 16:48 Source: patient, family Exam Limitations: no limitations Physician History: This is a morbidly obese 67-year-old white female patient of Dr. Esquivel who has multiple significant pulmonary issues including recurrent pneumonias, oxygen dependent COPD on 5 L oxygen and congestive heart failure. She has a history of hypertension, peripheral vascular disease, anxiety and fibromyalgia. She continues to smoke cigarettes daily. She was arrived by private vehicle. Patient is significantly noncompliant. She stays home and is not active. Patient arrived to the emergency department without her oxygen. When we placed 5 L oxygen via nasal cannula her oxygen saturations level were 98 to 100%. Patient also is known to have chronic bilateral lower extremity venous stasis disease with ulcerations. Patient denies chest pain. Patient denies abdominal pain. She said no nausea vomiting or diarrhea. She has not had fevers Timing/Duration: day(s) (3) Severity of Dyspnea-Max: moderate Severity of Dyspnea-Current: mild Possible Cause: frequent episodes (To moderate), chronic episodes, smoke exposure (Patient continues to smoke cigarettes daily) Modifying Factors: Improves With: activity (Worsens) Associated Symptoms: anxiety, ankle swelling (Chronic bilateral), leg swelling (Chronic), No chest pain/discomfort, No wheezing, No hemoptysis, No calf pain, No painful breathing, No productive cough Allergies/Adverse Reactions: codeine Allergy (Intermediate, Verified 11/27/22 16:46) rash, itching cefaclor [From Ceclor] Allergy (Mild, Verified 11/27/22 16:46) Rash Penicillins Allergy (Mild, Verified 11/27/22 16:46) Swelling bacitracin [From Neosporin ([id number])] Adverse Reaction (Mild, Verified 11/27/22 16:46) Itching bacitracin zinc [From Neosporin ([id number])] Adverse Reaction (Mild, Verified 11/27/22 16:46) Itching levofloxacin [From Levaquin] Adverse Reaction (Mild, Verified 11/27/22 16:46) itch neomycin sulfate [From Neosporin ([id number])] Adverse Reaction (Mild, Verified 11/27/22 16:46) itch polymyxin B [From Neosporin ([id number])] Adverse Reaction (Mild, Verified 11/27/22 16:46) Itching Home Medications: Ropinirole HCl [Requip] 3 mg PO TID 03/05/14 [History] Ipratropium/Albuterol Sulfate [Iprat-Albut 0.5-3(2.5) mg/3 ml] 1 neb IH QID 10/21/21 [History] Amlodipine Besylate 5 mg [Norvasc 5 mg] 5 mg PO BID 03/30/22 [History] Famotidine 20 mg [Pepcid 20 MG] 40 mg PO DAILY 03/30/22 [History] Furosemide 40 mg [Lasix 40 MG] 40 mg PO DAILY 03/30/22 [History] Losartan Potassium 50 mg [Cozaar 50 MG] 50 mg PO BID 03/30/22 [History] Potassium Chloride 10 meq PO DAILY 03/30/22 [History] Hx Tetanus, Diphtheria Vaccination/Date Given: Yes Hx Influenza Vaccination/Date Given: No Hx Pneumococcal Vaccination/Date Given: No Travel Risk - International Travel Have you traveled outside of the country in past 3 weeks: No - Coronavirus Screening Are you exhibiting any of the following symptoms?: Yes Symptoms: Shortness of Breath Close contact with a COVID-19 positive Pt in past 14-21 Days: No - Vaccine Status Have you recieved a Covid-19 vaccination: No - Review of Systems Constitutional: No Symptoms Eyes: No Symptoms Ears, Nose, & Throat: No Symptoms Respiratory: Dyspnea Cardiac: No Symptoms Abdominal/Gastrointestinal: No Symptoms Genitourinary Symptoms: No Symptoms Musculoskeletal: No Symptoms Skin: Other (Chronic venous stasis ulcerations bilateral lower extremity) Neurological: No Symptoms Psychological: No Symptoms Endocrine: No Symptoms Hematologic/Lymphatic: No Symptoms Immunological/Allergic: No Symptoms All Other Systems: Reviewed and Negative - Past Medical History Pertinent Past Medical History: Yes Neurological History: No Pertinent History ENT History: No Pertinent History Cardiac History: Congestive Heart Failure, Hypertension, Peripheral Vascular Disease Respiratory History: COPD, Emphysema Endocrine Medical History: Diabetes Type II Musculoskeletal History: Arthritis, Fibromyalgia GI Medical History: No Pertinent History History: Other Psycho-Social History: No Pertinent History Female Reproductive Disorders: No Pertinent History Other Medical History: Stress Incontinence - Past Surgical History Past Surgical History: Yes Neuro Surgical History: No Pertinent History Cardiac: No Pertinent History Respiratory: No Pertinent History Gastrointestinal: Cholecystectomy Genitourinary: No Pertinent History Musculoskeletal: No Pertinent History Female Surgical History: Tubal Ligation - Social History Smoking Status: Current every day smoker How long have you smoked: 50 years Exposure to second hand smoke: Yes Drug Use: none Patient Lives Alone: No Significant Family History: no pertinent family hx - Nursing Vital Signs Nursing Vital Signs: Initial Vital Signs Temperature 98.9 F 11/27/22 16:48 Pulse Rate 104 H 11/27/22 16:48 Respiratory Rate 22 11/27/22 16:48 Blood Pressure 164/73 11/27/22 16:48 O2 Sat by Pulse Oximetry 96 11/27/22 16:48 Pain Scale Pain Intensity 4 - Physical Exam General Appearance: no apparent distress, alert, anxiety, obese Eye Exam: PERRL/EOMI, eyes nml inspection Ears, Nose, Throat Exam: hearing grossly normal, normal ENT inspection, normal pharynx Neck Exam: normal inspection, non-tender, supple, full range of motion Respiratory Exam: normal breath sounds, lungs clear, airway intact, No chest tenderness, No respiratory distress Cardiovascular/Chest Exam: normal heart sounds, regular rate/rhythm Abdominal/Gastrointestinal Exam: soft, normal bowel sounds, No tenderness Rectal Exam: not done Extremity Exam: normal range of motion, pedal edema (Patient has chronic venous stasis ulcers disease with mild redness bilateral lower extremities from the knee to the ankles.), No no calf tenderness, No calf tenderness Neurologic Exam: alert, 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, cooperative, biochemistry technologist II-XII nml as tested, normal mood/affect, sensation nml Skin Exam: other (Patient is very dirty feet that she has not walked in quite a long time.) Lymphatic Exam: No adenopathy SpO2 Interpretation: normal O2 Delivery: Room Air - Course Nursing assessment & vital signs reviewed: Yes EKG Interpreted by Me: RATE (101), Sinus Tach, NORMAL AXIS, NORMAL INTERVALS, Right Bundle Branch Block, Other (No acute ischemic changes on today's twelve- lead EKG.) Ordered Tests: Active Orders 24 hr Category Date Time Status EKG-ER Only STAT Care 11/27/22 17:23 Active IV Insertion STAT Care 11/27/22 17:23 Active Oxygen-ED Only Nasal Cannula 5 lpm Care 11/27/22 17:23 Active Pulse Oximetry (ED) STAT Care 11/27/22 17:23 Active CHEST 1 VIEW (PORTABLE) Stat Exams 11/27/22 17:24 Taken BLOOD CULTURE Stat Lab 11/27/22 18:25 Ordered CBC W DIFF Stat Lab 11/27/22 18:25 Completed CMP Stat Lab 11/27/22 18:25 Completed CULTURE,URINE Stat Lab 11/27/22 18:25 Ordered Lactic Acid Stat Lab 11/27/22 17:33 Completed NT PRO BNPII Stat Lab 11/27/22 18:25 Completed TROPONIN Q4H Lab 11/27/22 18:25 Completed TROPONIN Q4H Lab 11/27/22 21:30 Ordered TROPONIN Q4H Lab 11/28/22 01:30 Ordered UA W/RFX UR CULTURE Stat Lab 11/27/22 17:56 Completed Medication Summary Discontinued Medications Generic Name Dose Route Start Last Admin Trade Name Freq PRN Reason Stop Dose Admin Acetaminophen 650 mg 11/27/22 19:03 Acetaminophen 325 Mg Tablet PO 11/27/22 19:04 STAT ONE Lorazepam 0.5 mg 11/27/22 19:03 Lorazepam 2 Mg/1 Ml 2 Mg Vial IV 11/27/22 19:04 STAT ONE Lab/Rad Data: Laboratory Result Diagrams 11/27/22 18:25 11/27/22 18:25 Laboratory Results 11/27/22 11/27/22 11/27/22 Range/Units 18:25 18:25 18:25 WBC 8.6 (4.0-10.5) x10^3/uL RBC 4.15 (4.1-5.4) x10^6/uL Hgb 11.3 L (12.0-16.0) g/dL Hct 40.3 (35-47) % MCV 97.1 (78-100) fL MCH 27.2 (26-32) pg MCHC 28.0 L (32-36) g/dL RDW 14.9 H (11.5-14.0) % Plt Count 248 (150-450) x10^3/uL MPV 10.1 (7.5-11.0) fL Gran % 71.1 H (36.0-66.0) % Immature Gran % (Auto) 0.9 H (0.00-0.4) % Nucleat RBC Rel Count 0.0 (0.00-0.1) % Eos # (Auto) 0.14 (0-0.5) x10^3/uL Immature Gran # (Auto) 0.08 H (0.00-0.03) x10^3u/L Absolute Lymphs (auto) 1.49 (1.0-4.6) x10^3/uL Absolute Monos (auto) 0.75 (0.0-1.3) x10^3/uL Absolute Nucleated RBC 0.00 (0.00-0.01) x10^3u/L Lymphocytes % 17.4 L (24.0-44.0) % Monocytes % 8.8 (0.0-12.0) % Eosinophils % 1.6 (0.00-5.0) % Basophils % 0.2 (0.0-0.4) % Absolute Granulocytes 6.09 (1.4-6.9) x10^3/uL Basophils # 0.02 (0-0.4) x10^3/uL Sodium 140 (137-145) mmol/L Potassium 5.0 (3.5-5.1) mmol/L Chloride 91 L (98-107) mmol/L Carbon Dioxide 42 H (22-30) mmol/L Anion Gap 12.0 (5-15) MEQ/L BUN 42 H (7-17) mg/dL Creatinine 0.67 (0.52-1.04) mg/dL Estimated GFR > 60.0 ML/MIN Glucose 318 H (74-106) mg/dL Lactic Acid (0.4-2.0) Calcium 9.4 (8.4-10.2) mg/dL Total Bilirubin 0.20 (0.2-1.3) mg/dL AST 18 (14-36) U/L ALT 22 (0-35) U/L Alkaline Phosphatase 87 (38-126) U/L Troponin I 0.018 (0.000-0.034) ng/mL NT-Pro-B Natriuret Pep 122 (<300) pg/mL Serum Total Protein 7.8 (6.3-8.2) g/dL Albumin 3.8 (3.5-5.0) g/dL Urine Color (Yellow) Urine Appearance (Clear) Urine pH (4.6-8.0) Ur Specific [place] (1.005-1.030) Urine Protein (Negative) Urine Glucose (UA) (Negative) mg/dL Urine Ketones (Negative) Urine Blood (Negative) Urine Nitrite (Negative) Urine Bilirubin (Negative) Urine Urobilinogen (0.2) mg/dL Ur Leukocyte Esterase (Negative) U Hyaline Cast (Auto) (0-2) /LPF Urine Microscopic RBC (0-5) /HPF Urine Microscopic WBC (0-5) /HPF Ur Epithelial Cells (None Seen) /HPF Urine Bacteria (None Seen) /HPF Urine Culture Reflexed (NO) 11/27/22 11/27/22 Range/Units 17:56 17:33 WBC (4.0-10.5) x10^3/uL RBC (4.1-5.4) x10^6/uL Hgb (12.0-16.0) g/dL Hct (35-47) % MCV (78-100) fL MCH (26-32) pg MCHC (32-36) g/dL RDW (11.5-14.0) % Plt Count (150-450) x10^3/uL MPV (7.5-11.0) fL Gran % (36.0-66.0) % Immature Gran % (Auto) (0.00-0.4) % Nucleat RBC Rel Count (0.00-0.1) % Eos # (Auto) (0-0.5) x10^3/uL Immature Gran # (Auto) (0.00-0.03) x10^3u/L Absolute Lymphs (auto) (1.0-4.6) x10^3/uL Absolute Monos (auto) (0.0-1.3) x10^3/uL Absolute Nucleated RBC (0.00-0.01) x10^3u/L Lymphocytes % (24.0-44.0) % Monocytes % (0.0-12.0) % Eosinophils % (0.00-5.0) % Basophils % (0.0-0.4) % Absolute Granulocytes (1.4-6.9) x10^3/uL Basophils # (0-0.4) x10^3/uL Sodium (137-145) mmol/L Potassium (3.5-5.1) mmol/L Chloride (98-107) mmol/L Carbon Dioxide (22-30) mmol/L Anion Gap (5-15) MEQ/L BUN (7-17) mg/dL Creatinine (0.52-1.04) mg/dL Estimated GFR ML/MIN Glucose (74-106) mg/dL Lactic Acid 1.8 (0.4-2.0) Calcium (8.4-10.2) mg/dL Total Bilirubin (0.2-1.3) mg/dL AST (14-36) U/L ALT (0-35) U/L Alkaline Phosphatase (38-126) U/L Troponin I (0.000-0.034) ng/mL NT-Pro-B Natriuret Pep (<300) pg/mL Serum Total Protein (6.3-8.2) g/dL Albumin (3.5-5.0) g/dL Urine Color Yellow (Yellow) Urine Appearance Clear (Clear) Urine pH 6.5 (4.6-8.0) Ur Specific [place] 1.025 (1.005-1.030) Urine Protein 100 A (Negative) Urine Glucose (UA) >=1000 A (Negative) mg/dL Urine Ketones Negative (Negative) Urine Blood Negative (Negative) Urine Nitrite Negative (Negative) Urine Bilirubin Negative (Negative) Urine Urobilinogen 0.2 (0.2) mg/dL Ur Leukocyte Esterase Small A (Negative) U Hyaline Cast (Auto) NONE SEEN (0-2) /LPF Urine Microscopic RBC 0-2 (0-5) /HPF Urine Microscopic WBC 51-100 A (0-5) /HPF Ur Epithelial Cells None Seen (None Seen) /HPF Urine Bacteria None Seen (None Seen) /HPF Urine Culture Reflexed YES (NO) - Progress Progress: improved, re-examined Air Movement: good Progress Note: 11/27/22 19:10 Chest x-ray was interpreted by me and it does not show any acute cardiopulmonary process. This patient's medical issue is of moderate complexity. The level of complexity and the work-up performed is based on the patient's past medical history, review of the patient's medication list, review of the patient's drug allergy list, history of present illness and the findings on physical examination. The work-up includes placement of an intravenous line, infusion of normal saline solution, obtaining a troponin level, obtaining a twelve-lead EKG, obtaining a chest x-ray, CBC, CMP, BNP. In addition we obtained a urinalysis. I reviewed the results of the studies. Patient appears to have a urinary tract infection that is mild but present and recurrent mild cellulitis of her bilateral lower extremities. Patient's oxygenation saturation levels are 98 to 100% on her usual 5 L oxygen nasal cannula. She has no evidence of any pneumonia. We will place her on Bactrim DS to cover both her skin infection and her urinary tract infection. I will also provide her with a dose of Diflucan orally here in the emergency department. I will write a prescription for more clindamycin and Macrodantin for home use. This discharge plan and instruction was discussed with the patient. Bactrim DS is not on her list of allergies. 11/27/22 19:13 Blood Culture(s) Obtained: Yes Antibiotics given: Yes Counseled pt/family regarding: lab results, diagnosis, need for follow-up, rad results Medical Desision Making - External Record(s) Reviewed Records reviewed as a part of evaluation & management: Inpatient, Discharge Summary - Discussion of managment Reviewed:: Test results Agreed on:: Treatment plan, need for follow-up - Diagnostic Testing Diagnostic test were ordered, analyzed, and reviewed by me: Yes Radiological Interpretation: Interpreted by me - Risk of complications The pt has a mod risk of morbidity or mortality based on: Need for prescription drug management - Departure Departure Disposition: Home Clinical Impression: Cellulitis of both lower extremities, Urinary tract infection, Medical non- compliance, Hyperglycemia Condition: Stable Critical Care Time: No Referrals: DEB ESQUIVEL MD [Primary Care Provider] - Follow up/PCP as directed Additional Instructions: Keep your feet and lower extremities clean twice daily with soap and water. Continue your other medication as prescribed. Take your new antibiotics as prescribed. Follow-up with your primary care provider for further evaluation and management. Stop smoking. Monitor and treat your blood sugar as you have been directed. Prescriptions: Smz/Tmp Ds Tablet [Bactrim Ds Tablet] 1 udtab PO BID #14 tablet
[2022-11-27 18:06] LABS: Appearance Clear (Clear); Bacteria None Seen /HPF (None Seen); Bilirubin Negative (Negative); Blood Negative (Negative); Epithelial Cells None Seen /HPF (None Seen); Glucose, Urine >=1000 mg/dL (Negative); Hyaline Casts NONE SEEN /LPF (0-2); Ketones Negative (Negative); Leukocyte Esterase Small (Negative); Nitrite Negative (Negative); Ph 6.5 (4.6-8.0); Protein,Urine Dip 100 (Negative); RBC 0-2 /HPF (0-5); Specific Gravity 1.025 (1.005-1.030); Urobilinogen 0.2 mg/dL (0.2); WBC 51-100 /HPF (0-5)
[2022-11-27 18:13] LABS: ADD URINE CULTURE? YES (NO)
[2022-11-27 18:32] LABS: Absolute Neutrophil Ct (ANC) 6.09 x10^3/uL (1.4-6.9); BASOPHIL % 0.2 % (0.0-0.4); Basophil (Absolute #) 0.02 x10^3/uL (0-0.4); Eosinophil % 1.6 % (0.00-5.0); Eosinophil (Absolute #) 0.14 x10^3/uL (0-0.5); Hematocrit 40.3 % (35-47); Hemoglobin 11.3 g/dL (12.0-16.0); IMMATURE GRAN # 0.08 x10^3u/L (0.00-0.03); IMMATURE GRAN % 0.9 % (0.00-0.4); Lymphocyte (Absolute #) 1.49 x10^3/uL (1.0-4.6); Lymphocytes % 17.4 % (24.0-44.0); Mean Cell Volume 97.1 fL (78-100); Mean Corpuscular Hemoglobin 27.2 pg (26-32); Mean Platelet Volume 10.1 fL (7.5-11.0); Monocyte (Absolute #) 0.75 x10^3/uL (0.0-1.3); Monocytes % 8.8 % (0.0-12.0); Neutrophil % 71.1 % (36.0-66.0); Platelet Count 248 x10^3/uL (150-450); Red Blood Count 4.15 x10^6/uL (4.1-5.4); Red Cell Distribution Width 14.9 % (11.5-14.0); White Blood Count 8.6 x10^3/uL (4.0-10.5)
[2022-11-27 18:56] LABS: ALBUMIN 3.8 g/dL (3.5-5.0); ALKALINE PHOSPHATASE 87 U/L (38-126); BLOOD UREA NITROGEN 42 mg/dL (7-17); CHLORIDE 91 mmol/L (98-107); Calcium 9.4 mg/dL (8.4-10.2); Creatinine 1 0.67 mg/dL (0.52-1.04); EST GLOMERULAR FILTRATION RATE > 60.0 ML/MIN; Glucose 318 mg/dL (74-106); NT PRO BNPII 122 pg/mL (<300); SGOT/AST 18 U/L (14-36); SGPT/ALT 22 U/L (0-35); SODIUM 140 mmol/L (137-145); Total Protein 7.8 g/dL (6.3-8.2)
[2022-11-27 19:00] LABS: Carbon Dioxide 42 mmol/L (22-30)
[2022-11-27] MEDS ORDERED: Ativan 2 MG/1 ML VIAL IV ONE (19:03)
[2022-11-27] MEDS ORDERED: TYLENOL 325 MG PO ONE (19:03)
[2022-11-27] MEDS ORDERED: Ativan 2 MG/1 ML VIAL ONE (19:16)
[2022-11-27] MEDS ORDERED: TYLENOL 325 MG ONE (19:16)
[2022-11-27] MEDS ORDERED: BACTRIM DS TABLET PO ONE ×2 (19:18→19:24)
[2022-11-27 19:26] VITALS: BP 123/77; PULSE 104; O2SAT 97
[2022-11-27 20:28] LABS: Slide Review 1 YES
--- NOTE | 2022-11-27 21:07 | XRAY ---
Indication: Short of breath. Comparison: September 11, 2022 Portable chest again demonstrates left midlung subsegmental atelectasis/scarring. No focal infiltrate, consolidation, or large effusion. Heart and mediastinal structures within normal limits. Bony thorax intact again with mild degenerative changes. Impression: Continued nonacute chest with chronic findings.
== END 2022-11-27 19:40 | disposition home or self-care (01) ==
LOC: ED 16:44
DX: N39.0 Urinary tract infection, site not specified (principal); L03.116 Cellulitis of left lower limb; L03.115 Cellulitis of right lower limb; Z91.199 Patient's noncompliance with other medical treatment and regimen due to unspecified reason; E11.65 Type 2 diabetes mellitus with hyperglycemia; I11.0 Hypertensive heart disease with heart failure; I50.9 Heart failure, unspecified; J43.9 Emphysema, unspecified; Z99.81 Dependence on supplemental oxygen; Z79.899 Other long term (current) drug therapy; Z72.0 Tobacco use
CPT/HCPCS: 36000; 36415; 71045; 80053; 81001; 83605; 83880; 84484; 85025; 87040; 87086; 93005; 94760; 96374; 99284; J2060; A9270-GY

== ENCOUNTER 2023-01-23 13:21 | Inpatient (IN) | payer MEDICARE ==
[2023-01-23] MEDS ORDERED: Zithromax 500 MG/ 250 ML NaCl Premix 500 MG/250 ML IVPB IV STA (13:39)
[2023-01-23] MEDS ORDERED: DUONEB 0.5-3 MG/3 ml Neb IH ONE ×2 (13:39→14:29)
[2023-01-23] MEDS ORDERED: AZACTAM 1 GM*** 2 GM in Sodium Chloride 0.9% 100 ML IV ONE (13:41)
[2023-01-23] MEDS ORDERED: SOLU MEDROL IV STA ×2 (13:42)
[2023-01-23] MEDS ORDERED: STERILE H2O IV STA ×2 (13:42)
[2023-01-23] MEDS ORDERED: Sterile H2O 10 ml IJ ONE ×3 (13:55→23:10)
[2023-01-23] MEDS ORDERED: Zithromax 500 MG/ 250 ML NaCl Premix 500 MG/250 ML IVPB IV ONE (13:56)
[2023-01-23] MEDS ORDERED: solu-MEDROL ONE ×4 (13:56→23:10)
[2023-01-23 14:43] LABS: Absolute Neutrophil Ct (ANC) 6.28 x10^3/uL (1.4-6.9); BASOPHIL % 0.2 % (0.0-0.4); Basophil (Absolute #) 0.02 x10^3/uL (0-0.4); Eosinophil % 1.5 % (0.00-5.0); Eosinophil (Absolute #) 0.13 x10^3/uL (0-0.5); Hematocrit 37.6 % (35-47); Hemoglobin 10.3 g/dL (12.0-16.0); IMMATURE GRAN # 0.08 x10^3u/L (0.00-0.03); IMMATURE GRAN % 0.9 % (0.00-0.4); Lymphocyte (Absolute #) 1.49 x10^3/uL (1.0-4.6); Lymphocytes % 17.4 % (24.0-44.0); Mean Cell Volume 96.4 fL (78-100); Mean Corpuscular Hemoglobin 26.4 pg (26-32); Mean Corpuscular Hgb Concent. 27.4 g/dL (32-36); Mean Platelet Volume 9.9 fL (7.5-11.0); Monocyte (Absolute #) 0.58 x10^3/uL (0.0-1.3); Monocytes % 6.8 % (0.0-12.0); Neutrophil % 73.2 % (36.0-66.0); Platelet Count 273 x10^3/uL (150-450); Red Cell Distribution Width 14.5 % (11.5-14.0); White Blood Count 8.6 x10^3/uL (4.0-10.5)
--- NOTE | 2023-01-23 14:43 | ERPHSYRPT ---
- History of Present Illness Time Seen by Provider: 01/23/23 13:38 Source: patient, EMS Exam Limitations: no limitations Patient Subjective Stated Complaint: PT states "I woke up this way. I am having a hard time breathing." Triage Nursing Assessment: Pt presented alert and oriented X 3, skin pwd. pt has nebulizer tx on. PT skin is dirty and she smells strongly of body odor and urine. PT able to speak in clear sentences with audible wheezes noted. Pt has productive cough. pt has open wounds on both lower legs bilat. Physician History: 67-year-old female with multiple medical problems including hypertension, hyp erlipidemia, chronic respiratory failure secondary to COPD on 5 L oxygen, diabetes mellitus, bilateral lower extremity chronic swelling/stasis presented with increasing shortness of breath since morning. Patient reports she has been having cough productive of yellow-green sputum for the last few days and since morning having more shortness of breath with minimal activities. Patient has bilateral lower extremity sores with some discharge yellow-green. No fever or chills reported. Patient has audible wheezes on presentation despite receiving a DuoNeb in route to ER by EMS. Patient was desatting to lower 80s on EMS arrival at home. Timing/Duration: today, constant, gradual onset, worse Activities at Onset: rest Severity of Dyspnea-Max: moderate Severity of Dyspnea-Current: moderate Possible Cause: frequent episodes Modifying Factors: Improves With: albuterol nebulizer. Worsens With: coughing, exertion Associated Symptoms: cough, wheezing, leg swelling, productive cough Allergies/Adverse Reactions: codeine Allergy (Intermediate, Verified 11/27/22 16:46) rash, itching cefaclor [From Ceclor] Allergy (Mild, Verified 11/27/22 16:46) Rash Penicillins Allergy (Mild, Verified 11/27/22 16:46) Swelling bacitracin [From Neosporin ([id number])] Adverse Reaction (Mild, Verified 16:46) Itching bacitracin zinc [From Neosporin ([id number])] Adverse Reaction (Mild, Veri fied 11/27/22 16:46) Itching levofloxacin [From Levaquin] Adverse Reaction (Mild, Verified 11/27/22 16:46) itch neomycin sulfate [From Neosporin ([id number])] Adverse Reaction (Mild, Verified 11/27/22 16:46) itch polymyxin B [From Neosporin ([id number])] Adverse Reaction (Mild, Verified 11/27/22 16:46) Itching Home Medications: Ropinirole HCl 3 mg PO TID 01/23/23 [History] Hx Tetanus, Diphtheria Vaccination/Date Given: Yes Hx Influenza Vaccination/Date Given: No Hx Pneumococcal Vaccination/Date Given: No Immunizations Up to Date: Yes Travel Risk - International Travel Have you traveled outside of the country in past 3 weeks: No - Coronavirus Screening Are you exhibiting any of the following symptoms?: Yes Symptoms: Cough: New Onset, Shortness of Breath Close contact with a COVID-19 positive Pt in past 14-21 Days: No - Vaccine Status Have you recieved a Covid-19 vaccination: No - Review of Systems Constitutional: Fatigue, Weakness Eyes: No Symptoms Ears, Nose, & Throat: No Symptoms Respiratory: Cough, Dyspnea, Dyspnea on Exertion (MEJIA), Wheezing Cardiac: Edema Abdominal/Gastrointestinal: No Symptoms Genitourinary Symptoms: No Symptoms Musculoskeletal: Arthralgias Skin: Skin Lesions Neurological: No Symptoms Endocrine: No Symptoms Hematologic/Lymphatic: No Symptoms Immunological/Allergic: No Symptoms - Past Medical History Pertinent Past Medical History: Yes Neurological History: No Pertinent History ENT History: No Pertinent History Cardiac History: Congestive Heart Failure, Hypertension, Peripheral Vascular Disease Respiratory History: COPD, Emphysema Endocrine Medical History: Diabetes Type II Musculoskeletal History: Arthritis, Fibromyalgia GI Medical History: No Pertinent History History: Other Psycho-Social History: No Pertinent History Female Reproductive Disorders: No Pertinent History Other Medical History: Stress Incontinence - Past Surgical History Past Surgical History: Yes Neuro Surgical History: No Pertinent History Cardiac: No Pertinent History Respiratory: No Pertinent History Gastrointestinal: Cholecystectomy Genitourinary: No Pertinent History Musculoskeletal: No Pertinent History Female Surgical History: Tubal Ligation - Social History Smoking Status: Current every day smoker How long have you smoked: 50 years Exposure to second hand smoke: Yes Drug Use: none Patient Lives Alone: No Significant Family History: no pertinent family hx - Nursing Vital Signs Nursing Vital Signs: Initial Vital Signs Temperature 98.4 F 01/23/23 13:22 Pulse Rate 109 H 01/23/23 13:22 Respiratory Rate 26 H 01/23/23 13:22 Blood Pressure 140/77 01/23/23 13:22 O2 Sat by Pulse Oximetry 99 01/23/23 13:22 Pain Scale Pain Intensity 0 - Physical Exam General Appearance: no apparent distress, alert Eye Exam: PERRL/EOMI Ears, Nose, Throat Exam: hearing grossly normal, pharyngeal erythema Neck Exam: normal inspection, non-tender, full range of motion Respiratory Exam: diminished breath sounds, accessory muscle use, rhonchi, wheezing Cardiovascular/Chest Exam: normal heart sounds, tachycardia Abdominal/Gastrointestinal Exam: soft, No tenderness Extremity Exam: pedal edema, swelling (Bilateral swelling/redness from ankle to mid calf with open sores, yellow-green crusting more on the posterior aspect.) Neurologic Exam: alert, 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, cooperative Skin Exam: normal color SpO2 Interpretation: O2 applied SpO2: 94 O2 Delivery: Nasal Cannula (5 L) Ordered Tests: Medication Summary Discontinued Medications Generic Name Dose Route Start Last Admin Trade Name Freq PRN Reason Stop Dose Admin Acetaminophen 650 mg 01/23/23 16:05 01/27/23 00:52 Acetaminophen 325 Mg Tablet PO 02/22/23 16:04 650 mg Q4H PRN PRN Administration PAIN AND/OR FEVER Acetaminophen Confirm 01/24/23 04:33 Acetaminophen 325 Mg Tablet Administered 01/24/23 04:34 Dose 650 mg .ROUTE .STK-MED ONE Albuterol/Ipratropium 3 ml 01/23/23 13:39 01/23/23 14:37 Ipratropium/Albuterol Sulfate 3 Ml Ampul.Neb 01/23/23 13:40 3 ml STAT ONE Administration Albuterol/Ipratropium Confirm 01/23/23 14:29 Ipratropium/Albuterol Sulfate 3 Ml Ampul.Neb Administered 01/23/23 14:30 Dose 3 ml IH .STK-MED ONE Albuterol/Ipratropium 3 ml 01/23/23 19:00 01/27/23 13:12 Ipratropium/Albuterol Sulfate 3 Ml Ampul.Neb IH 02/22/23 18:59 3 ml Q6HRT FABRICIO Administration Albuterol/Ipratropium Confirm 01/24/23 07:18 Ipratropium/Albuterol Sulfate 3 Ml Ampul.Neb Administered 01/24/23 07:19 Dose 3 ml IH .STK-MED ONE Amlodipine Besylate 5 mg 01/24/23 10:00 01/27/23 07:12 Amlodipine Besylate 5 Mg Tablet PO 02/23/23 09:59 5 mg BID FABRICIO Administration Methylprednisolone Sodium 0 mg 01/23/23 13:42 01/23/23 13:57 Succinate 120 mg/ Sterile IV 01/23/23 13:43 40 mg Water 3 ml STAT STA Administration Methylprednisolone Sodium 0 mg 01/23/23 18:00 01/23/23 18:52 Succinate 60 mg/ Sterile Water IV 02/22/23 17:59 60 mg 2 ml Q6HT FABRICIO Administration Methylprednisolone Sodium 0 mg 01/24/23 00:00 01/27/23 06:10 Succinate 60 mg/ Sterile Water IV 02/23/23 00:00 60 mg 1 ml Q6HT FABRICIO Administration Methylprednisolone Sodium 0 mg 01/27/23 12:00 01/27/23 12:03 Succinate 60 mg/ Sterile Water IV 02/26/23 11:59 60 mg 2 ml Q6HT FABRICIO Administration Empagliflozin 10 mg 01/24/23 10:00 01/27/23 09:11 Empagliflozin 10 Mg Tablet PO 02/23/23 09:59 10 mg DAILY FABRICIO Administration Furosemide 40 mg 01/24/23 10:00 01/27/23 09:10 Furosemide 40 Mg Tablet PO 02/23/23 09:59 40 mg DAILY FABRICIO Administration Glimepiride 1 mg 01/26/23 08:56 01/27/23 07:12 Glimepiride 2 Mg Tablet PO 02/25/23 08:55 1 mg BREAKFAST FABRICIO Administration Azithromycin 500 mg in 250 mls @ 250 mls/hr 01/23/23 13:39 01/23/23 15:06 Zithromax 500 Mg/ 250 Ml Nacl Premix IV 01/23/23 14:38 Infused STAT STA Infusion Aztreonam 2 gm/ Sodium 100 mls @ 200 mls/hr 01/23/23 13:41 01/23/23 15:39 Chloride IV 01/23/23 14:10 200 mls/hr STAT ONE Administration Azithromycin Confirm 01/23/23 13:56 Zithromax 500 Mg/ 250 Ml Nacl Premix Administered 01/23/23 13:57 Dose 500 mg in 250 mls @ ud IV .STK-MED ONE Azithromycin 500 mg in 250 mls @ 250 mls/hr 01/24/23 10:00 01/27/23 09:34 Zithromax 500 Mg/ 250 Ml Nacl Premix IV 02/23/23 09:59 250 mls/hr Q24H10 FABRICIO Administration Aztreonam 2 gm/ Sodium 100 mls @ 200 mls/hr 01/23/23 22:00 01/24/23 05:57 Chloride IV 01/26/23 21:59 Not Given Q8HT FABRICIO Meropenem 1 gm/ Sodium 100 mls @ 200 mls/hr 01/24/23 06:00 01/27/23 14:28 Chloride IV 01/29/23 05:59 200 mls/hr Q8HT FABRICIO Administration Sodium Chloride Confirm 01/24/23 05:37 Sodium Chloride 100ml Mini-Bag Plus Administered 01/24/23 05:38 Dose 100 mls @ ud IV .STK-MED ONE Insulin Human Lispro 0 unit 01/23/23 16:05 Insulin Lispro 1 Unit SQ 02/22/23 16:04 UD PRN HYPERGLYCEMIA Insulin Human Lispro 0 unit 01/23/23 22:55 01/27/23 12:02 Insulin Lispro 1 Unit SQ 02/22/23 22:54 10 unit UD PRN Administration HYPERGLYCEMIA Insulin Human Lispro 10 unit 01/23/23 22:58 01/23/23 23:02 Insulin Lispro 1 Unit SQ 01/23/23 22:59 10 unit STAT ONE Administration Losartan Potassium 50 mg 01/24/23 10:00 01/27/23 09:10 Losartan Potassium 50 Mg Tablet PO 02/23/23 09:59 50 mg BID FABRICIO Administration Meropenem Confirm 01/24/23 05:36 Meropenem 1 Gm Vial Administered 01/24/23 05:37 Dose 1 gm IV .STK-MED ONE Metformin HCl 500 mg 01/24/23 17:00 01/27/23 07:12 Metformin Hcl 500 Mg Tablet PO 02/23/23 16:59 500 mg BIDWM FABRICIO Administration Methylprednisolone Sodium Succinate Confirm 01/23/23 13:56 Methylprednisolone Sod Suc 40m 40 Mg/Ml Vial Administered 01/23/23 13:57 Dose 40 mg .ROUTE .STK-MED ONE Methylprednisolone Sodium Succinate Confirm 01/23/23 18:25 Methylprednis Sod Succ 125 Mg/2 Ml Vial Administered 01/23/23 18:26 Dose 125 mg .ROUTE .STK-MED ONE Methylprednisolone Sodium Succinate Confirm 01/23/23 23:09 Methylprednisolone Sod Suc 40m 40 Mg/Ml Vial Administered 01/23/23 23:10 Dose 40 mg .ROUTE .STK-MED ONE Methylprednisolone Sodium Succinate Confirm 01/23/23 23:10 Methylprednisolone Sod Suc 40m 40 Mg/Ml Vial Administered 01/23/23 23:11 Dose 40 mg .ROUTE .STK-MED ONE Methylprednisolone Sodium Succinate Confirm 01/24/23 05:38 Methylprednisolone Sod Suc 40m 40 Mg/Ml Vial Administered 01/24/23 05:39 Dose 40 mg .ROUTE .STK-MED ONE Methylprednisolone Sodium Succinate Confirm 01/24/23 05:38 Methylprednisolone Sod Suc 40m 40 Mg/Ml Vial Administered 01/24/23 05:39 Dose 40 mg .ROUTE .STK-MED ONE Methylprednisolone Sodium Succinate Confirm 01/25/23 11:35 Methylprednisolone Sod Suc 40m 40 Mg/Ml Vial Administered 01/25/23 11:36 Dose 80 mg .ROUTE .STK-MED ONE Methylprednisolone Sodium Succinate Confirm 01/26/23 04:38 Methylprednisolone Sod Suc 40m 40 Mg/Ml Vial Administered 01/26/23 04:39 Dose 40 mg .ROUTE .STK-MED ONE Methylprednisolone Sodium Succinate Confirm 01/26/23 04:39 Methylprednisolone Sod Suc 40m 40 Mg/Ml Vial Administered 01/26/23 04:40 Dose 40 mg .ROUTE .STK-MED ONE Non-Formulary Medication 1 each 01/23/23 20:10 01/23/23 21:31 Pharmacy Dosing Request 01/23/23 20:11 Not Given STAT ONE Ondansetron HCl 4 mg 01/23/23 16:05 Ondansetron Hcl 4 Mg/2 Ml Vial IV 02/22/23 16:04 Q6H PRN PRN NAUSEA/VOMITING Oxycodone/Acetaminophen 1 tab 01/25/23 14:31 01/27/23 15:15 Oxycodone Hcl/Apap 5 Mg/325 Mg Tablet PO 01/30/23 14:30 1 tab Q4H PRN PRN Administration PAIN Pantoprazole Sodium 40 mg 01/24/23 10:00 Pantoprazole 40 Mg Vial IV 02/23/23 09:59 Q24H10 FABRICIO Pantoprazole Sodium 40 mg 01/24/23 10:00 01/27/23 09:10 Protonix (Pantoprazole) 40 Mg Tablet PO 02/23/23 09:59 40 mg DAILY FABRICIO Administration Potassium Chloride 10 meq 01/24/23 10:00 01/27/23 09:10 Potassium Chloride Tab 10 Meq Tab PO 02/23/23 09:59 10 meq DAILY FABRICIO Administration Ropinirole HCl 3 mg 01/23/23 22:00 01/27/23 14:31 Ropinirole Hcl 2 Mg Tablet PO 02/22/23 21:59 3 mg TID FABRICIO Administration Sterile Water Confirm 01/23/23 13:55 Water For Injection,Sterile 10 Ml Vial Administered 01/23/23 13:56 Dose 10 ml IJ .STK-MED ONE Sterile Water Confirm 01/23/23 23:09 Water For Injection,Sterile 10 Ml Vial Administered 01/23/23 23:10 Dose 10 ml IJ .STK-MED ONE Sterile Water Confirm 01/23/23 23:10 Water For Injection,Sterile 10 Ml Vial Administered 01/23/23 23:11 Dose 10 ml IJ .STK-MED ONE Sterile Water Confirm 01/24/23 05:38 Water For Injection,Sterile 10 Ml Vial Administered 01/24/23 05:39 Dose 10 ml IJ .STK-MED ONE Sterile Water Confirm 01/24/23 05:38 Water For Injection,Sterile 10 Ml Vial Administered 01/24/23 05:39 Dose 10 ml IJ .STK-MED ONE Tramadol HCl 50 mg 01/25/23 14:09 Tramadol Hcl 50 Mg Tablet PO 02/24/23 14:08 QID PRN PRN PAIN Lab/Rad Data: Laboratory Result Diagrams 01/24/23 05:20 01/24/23 05:20 Laboratory Results 01/24/23 01/24/23 01/24/23 Range/Units 06:58 05:20 05:20 WBC 9.8 (4.0-10.5) x10^3/uL RBC 3.92 L (4.1-5.4) x10^6/uL Hgb 10.5 L (12.0-16.0) g/dL Hct 37.1 (35-47) % MCV 94.6 (78-100) fL MCH 26.8 (26-32) pg MCHC 28.3 L (32-36) g/dL RDW 14.6 H (11.5-14.0) % Plt Count 265 (150-450) x10^3/uL MPV 10.1 (7.5-11.0) fL Gran % 91.5 H (36.0-66.0) % Immature Gran % (Auto) 0.8 H (0.00-0.4) % Nucleat RBC Rel Count 0.0 (0.00-0.1) % Eos # (Auto) 0.01 (0-0.5) x10^3/uL Immature Gran # (Auto) 0.08 H (0.00-0.03) x10^3u/L Absolute Lymphs (auto) 0.65 L (1.0-4.6) x10^3/uL Absolute Monos (auto) 0.08 (0.0-1.3) x10^3/uL Absolute Nucleated RBC 0.00 (0.00-0.01) x10^3u/L Lymphocytes % 6.7 L (24.0-44.0) % Monocytes % 0.8 (0.0-12.0) % Eosinophils % 0.1 (0.00-5.0) % Basophils % 0.1 (0.0-0.4) % Absolute Granulocytes 8.94 H (1.4-6.9) x10^3/uL Basophils # 0.01 (0-0.4) x10^3/uL Sodium 139 (137-145) mmol/L Potassium 4.2 (3.5-5.1) mmol/L Chloride 93 L (98-107) mmol/L Carbon Dioxide 38 H (22-30) mmol/L Anion Gap 12.2 (5-15) MEQ/L BUN 25 H (7-17) mg/dL Creatinine 0.61 (0.52-1.04) mg/dL Estimated GFR > 60.0 ML/MIN Glucose 399 H (74-106) mg/dL POC Glucometer 292 H (74 to 106) mg/dL Hemoglobin A1c (4.5-6.0) % Lactic Acid (0.4-2.0) Calcium 8.9 (8.4-10.2) mg/dL Magnesium (1.6-2.3) mg/dL Total Bilirubin 0.20 (0.2-1.3) mg/dL AST 17 (14-36) U/L ALT 19 (0-35) U/L Alkaline Phosphatase 64 (38-126) U/L Troponin I (0.000-0.034) ng/mL NT-Pro-B Natriuret Pep (<300) pg/mL Serum Total Protein 7.2 (6.3-8.2) g/dL Albumin 3.3 L (3.5-5.0) g/dL Prealbumin (17.6-36.0) mg/dL Procalcitonin (0.030-0.080) ng/mL Urine Color (Yellow) Urine Appearance (Clear) Urine pH (4.6-8.0) Ur Specific [place] (1.005-1.030) Urine Protein (Negative) Urine Glucose (UA) (Negative) mg/dL Urine Ketones (Negative) Urine Blood (Negative) Urine Nitrite (Negative) Urine Bilirubin (Negative) Urine Urobilinogen (0.2) mg/dL Ur Leukocyte Esterase (Negative) U Hyaline Cast (Auto) (0-2) /LPF Urine Microscopic RBC (0-5) /HPF Urine Microscopic WBC (0-5) /HPF Ur Epithelial Cells (None Seen) /HPF Urine Bacteria (None Seen) /HPF Urine Yeast (Budding) (None Seen) /HPF Urine Culture Reflexed (NO) Influenza Type A Ag (NEGATIVE) Influenza Type B Ag (NEGATIVE) RSV (PCR) (NEGATIVE) SARS-CoV-2 (PCR) (NEGATIVE) Slides for Path Review YES 01/24/23 01/23/23 01/23/23 Range/Units 04:12 22:00 22:00 WBC (4.0-10.5) x10^3/uL RBC (4.1-5.4) x10^6/uL Hgb (12.0-16.0) g/dL Hct (35-47) % MCV (78-100) fL MCH (26-32) pg MCHC (32-36) g/dL RDW (11.5-14.0) % Plt Count (150-450) x10^3/uL MPV (7.5-11.0) fL Gran % (36.0-66.0) % Immature Gran % (Auto) (0.00-0.4) % Nucleat RBC Rel Count (0.00-0.1) % Eos # (Auto) (0-0.5) x10^3/uL Immature Gran # (Auto) (0.00-0.03) x10^3u/L Absolute Lymphs (auto) (1.0-4.6) x10^3/uL Absolute Monos (auto) (0.0-1.3) x10^3/uL Absolute Nucleated RBC (0.00-0.01) x10^3u/L Lymphocytes % (24.0-44.0) % Monocytes % (0.0-12.0) % Eosinophils % (0.00-5.0) % Basophils % (0.0-0.4) % Absolute Granulocytes (1.4-6.9) x10^3/uL Basophils # (0-0.4) x10^3/uL Sodium (137-145) mmol/L Potassium (3.5-5.1) mmol/L Chloride (98-107) mmol/L Carbon Dioxide (22-30) mmol/L Anion Gap (5-15) MEQ/L BUN (7-17) mg/dL Creatinine (0.52-1.04) mg/dL Estimated GFR ML/MIN Glucose 542 H* (74-106) mg/dL POC Glucometer 339 H (74 to 106) mg/dL Hemoglobin A1c (4.5-6.0) % Lactic Acid (0.4-2.0) Calcium (8.4-10.2) mg/dL Magnesium (1.6-2.3) mg/dL Total Bilirubin (0.2-1.3) mg/dL AST (14-36) U/L ALT (0-35) U/L Alkaline Phosphatase (38-126) U/L Troponin I < 0.012 (0.000-0.034) ng/mL NT-Pro-B Natriuret Pep (<300) pg/mL Serum Total Protein (6.3-8.2) g/dL Albumin (3.5-5.0) g/dL Prealbumin (17.6-36.0) mg/dL Procalcitonin (0.030-0.080) ng/mL Urine Color (Yellow) Urine Appearance (Clear) Urine pH (4.6-8.0) Ur Specific [place] (1.005-1.030) Urine Protein (Negative) Urine Glucose (UA) (Negative) mg/dL Urine Ketones (Negative) Urine Blood (Negative) Urine Nitrite (Negative) Urine Bilirubin (Negative) Urine Urobilinogen (0.2) mg/dL Ur Leukocyte Esterase (Negative) U Hyaline Cast (Auto) (0-2) /LPF Urine Microscopic RBC (0-5) /HPF Urine Microscopic WBC (0-5) /HPF Ur Epithelial Cells (None Seen) /HPF Urine Bacteria (None Seen) /HPF Urine Yeast (Budding) (None Seen) /HPF Urine Culture Reflexed (NO) Influenza Type A Ag (NEGATIVE) Influenza Type B Ag (NEGATIVE) RSV (PCR) (NEGATIVE) SARS-CoV-2 (PCR) (NEGATIVE) Slides for Path Review 01/23/23 01/23/23 01/23/23 Range/Units 21:31 21:26 18:15 WBC (4.0-10.5) x10^3/uL RBC (4.1-5.4) x10^6/uL Hgb (12.0-16.0) g/dL Hct (35-47) % MCV (78-100) fL MCH (26-32) pg MCHC (32-36) g/dL RDW (11.5-14.0) % Plt Count (150-450) x10^3/uL MPV (7.5-11.0) fL Gran % (36.0-66.0) % Immature Gran % (Auto) (0.00-0.4) % Nucleat RBC Rel Count (0.00-0.1) % Eos # (Auto) (0-0.5) x10^3/uL Immature Gran # (Auto) (0.00-0.03) x10^3u/L Absolute Lymphs (auto) (1.0-4.6) x10^3/uL Absolute Monos (auto) (0.0-1.3) x10^3/uL Absolute Nucleated RBC (0.00-0.01) x10^3u/L Lymphocytes % (24.0-44.0) % Monocytes % (0.0-12.0) % Eosinophils % (0.00-5.0) % Basophils % (0.0-0.4) % Absolute Granulocytes (1.4-6.9) x10^3/uL Basophils # (0-0.4) x10^3/uL Sodium (137-145) mmol/L Potassium (3.5-5.1) mmol/L Chloride (98-107) mmol/L Carbon Dioxide (22-30) mmol/L Anion Gap (5-15) MEQ/L BUN (7-17) mg/dL Creatinine (0.52-1.04) mg/dL Estimated GFR ML/MIN Glucose (74-106) mg/dL POC Glucometer 502 H* 528 H* (74 to 106) mg/dL Hemoglobin A1c (4.5-6.0) % Lactic Acid (0.4-2.0) Calcium (8.4-10.2) mg/dL Magnesium (1.6-2.3) mg/dL Total Bilirubin (0.2-1.3) mg/dL AST (14-36) U/L ALT (0-35) U/L Alkaline Phosphatase (38-126) U/L Troponin I < 0.012 (0.000-0.034) ng/mL NT-Pro-B Natriuret Pep (<300) pg/mL Serum Total Protein (6.3-8.2) g/dL Albumin (3.5-5.0) g/dL Prealbumin (17.6-36.0) mg/dL Procalcitonin (0.030-0.080) ng/mL Urine Color (Yellow) Urine Appearance (Clear) Urine pH (4.6-8.0) Ur Specific [place] (1.005-1.030) Urine Protein (Negative) Urine Glucose (UA) (Negative) mg/dL Urine Ketones (Negative) Urine Blood (Negative) Urine Nitrite (Negative) Urine Bilirubin (Negative) Urine Urobilinogen (0.2) mg/dL Ur Leukocyte Esterase (Negative) U Hyaline Cast (Auto) (0-2) /LPF Urine Microscopic RBC (0-5) /HPF Urine Microscopic WBC (0-5) /HPF Ur Epithelial Cells (None Seen) /HPF Urine Bacteria (None Seen) /HPF Urine Yeast (Budding) (None Seen) /HPF Urine Culture Reflexed (NO) Influenza Type A Ag (NEGATIVE) Influenza Type B Ag (NEGATIVE) RSV (PCR) (NEGATIVE) SARS-CoV-2 (PCR) (NEGATIVE) Slides for Path Review 01/23/23 01/23/23 01/23/23 Range/Units 18:00 17:18 15:19 WBC (4.0-10.5) x10^3/uL RBC (4.1-5.4) x10^6/uL Hgb (12.0-16.0) g/dL Hct (35-47) % MCV (78-100) fL MCH (26-32) pg MCHC (32-36) g/dL RDW (11.5-14.0) % Plt Count (150-450) x10^3/uL MPV (7.5-11.0) fL Gran % (36.0-66.0) % Immature Gran % (Auto) (0.00-0.4) % Nucleat RBC Rel Count (0.00-0.1) % Eos # (Auto) (0-0.5) x10^3/uL Immature Gran # (Auto) (0.00-0.03) x10^3u/L Absolute Lymphs (auto) (1.0-4.6) x10^3/uL Absolute Monos (auto) (0.0-1.3) x10^3/uL Absolute Nucleated RBC (0.00-0.01) x10^3u/L Lymphocytes % (24.0-44.0) % Monocytes % (0.0-12.0) % Eosinophils % (0.00-5.0) % Basophils % (0.0-0.4) % Absolute Granulocytes (1.4-6.9) x10^3/uL Basophils # (0-0.4) x10^3/uL Sodium (137-145) mmol/L Potassium (3.5-5.1) mmol/L Chloride (98-107) mmol/L Carbon Dioxide (22-30) mmol/L Anion Gap (5-15) MEQ/L BUN (7-17) mg/dL Creatinine (0.52-1.04) mg/dL Estimated GFR ML/MIN Glucose (74-106) mg/dL POC Glucometer 288 H (74 to 106) mg/dL Hemoglobin A1c (4.5-6.0) % Lactic Acid (0.4-2.0) Calcium (8.4-10.2) mg/dL Magnesium (1.6-2.3) mg/dL Total Bilirubin (0.2-1.3) mg/dL AST (14-36) U/L ALT (0-35) U/L Alkaline Phosphatase (38-126) U/L Troponin I (0.000-0.034) ng/mL NT-Pro-B Natriuret Pep (<300) pg/mL Serum Total Protein (6.3-8.2) g/dL Albumin (3.5-5.0) g/dL Prealbumin 18.53 (17.6-36.0) mg/dL Procalcitonin (0.030-0.080) ng/mL Urine Color Yellow (Yellow) Urine Appearance Clear (Clear) Urine pH 6.0 (4.6-8.0) Ur Specific [place] 1.020 (1.005-1.030) Urine Protein 300 A (Negative) Urine Glucose (UA) 500 A (Negative) mg/dL Urine Ketones Negative (Negative) Urine Blood Negative (Negative) Urine Nitrite Negative (Negative) Urine Bilirubin Negative (Negative) Urine Urobilinogen 0.2 (0.2) mg/dL Ur Leukocyte Esterase Trace A (Negative) U Hyaline Cast (Auto) NONE SEEN (0-2) /LPF Urine Microscopic RBC 0-2 (0-5) /HPF Urine Microscopic WBC 21-50 A (0-5) /HPF Ur Epithelial Cells Few (None Seen) /HPF Urine Bacteria Few A (None Seen) /HPF Urine Yeast (Budding) Many A (None Seen) /HPF Urine Culture Reflexed YES (NO) Influenza Type A Ag (NEGATIVE) Influenza Type B Ag (NEGATIVE) RSV (PCR) (NEGATIVE) SARS-CoV-2 (PCR) (NEGATIVE) Slides for Path Review 01/23/23 01/23/23 01/23/23 Range/Units 15:00 14:35 14:15 WBC (4.0-10.5) x10^3/uL RBC (4.1-5.4) x10^6/uL Hgb (12.0-16.0) g/dL Hct (35-47) % MCV (78-100) fL MCH (26-32) pg MCHC (32-36) g/dL RDW (11.5-14.0) % Plt Count (150-450) x10^3/uL MPV (7.5-11.0) fL Gran % (36.0-66.0) % Immature Gran % (Auto) (0.00-0.4) % Nucleat RBC Rel Count (0.00-0.1) % Eos # (Auto) (0-0.5) x10^3/uL Immature Gran # (Auto) (0.00-0.03) x10^3u/L Absolute Lymphs (auto) (1.0-4.6) x10^3/uL Absolute Monos (auto) (0.0-1.3) x10^3/uL Absolute Nucleated RBC (0.00-0.01) x10^3u/L Lymphocytes % (24.0-44.0) % Monocytes % (0.0-12.0) % Eosinophils % (0.00-5.0) % Basophils % (0.0-0.4) % Absolute Granulocytes (1.4-6.9) x10^3/uL Basophils # (0-0.4) x10^3/uL Sodium (137-145) mmol/L Potassium (3.5-5.1) mmol/L Chloride (98-107) mmol/L Carbon Dioxide (22-30) mmol/L Anion Gap (5-15) MEQ/L BUN (7-17) mg/dL Creatinine (0.52-1.04) mg/dL Estimated GFR ML/MIN Glucose (74-106) mg/dL POC Glucometer (74 to 106) mg/dL Hemoglobin A1c (4.5-6.0) % Lactic Acid 1.3 (0.4-2.0) Calcium (8.4-10.2) mg/dL Magnesium (1.6-2.3) mg/dL Total Bilirubin (0.2-1.3) mg/dL AST (14-36) U/L ALT (0-35) U/L Alkaline Phosphatase (38-126) U/L Troponin I (0.000-0.034) ng/mL NT-Pro-B Natriuret Pep 287 (<300) pg/mL Serum Total Protein (6.3-8.2) g/dL Albumin (3.5-5.0) g/dL Prealbumin (17.6-36.0) mg/dL Procalcitonin 0.060 (0.030-0.080) ng/mL Urine Color (Yellow) Urine Appearance (Clear) Urine pH (4.6-8.0) Ur Specific [place] (1.005-1.030) Urine Protein (Negative) Urine Glucose (UA) (Negative) mg/dL Urine Ketones (Negative) Urine Blood (Negative) Urine Nitrite (Negative) Urine Bilirubin (Negative) Urine Urobilinogen (0.2) mg/dL Ur Leukocyte Esterase (Negative) U Hyaline Cast (Auto) (0-2) /LPF Urine Microscopic RBC (0-5) /HPF Urine Microscopic WBC (0-5) /HPF Ur Epithelial Cells (None Seen) /HPF Urine Bacteria (None Seen) /HPF Urine Yeast (Budding) (None Seen) /HPF Urine Culture Reflexed (NO) Influenza Type A Ag NEGATIVE (NEGATIVE) Influenza Type B Ag NEGATIVE (NEGATIVE) RSV (PCR) NEGATIVE (NEGATIVE) SARS-CoV-2 (PCR) NEGATIVE (NEGATIVE) Slides for Path Review 01/23/23 01/23/23 01/23/23 Range/Units 14:15 14:15 14:15 WBC 8.6 (4.0-10.5) x10^3/uL RBC 3.90 L (4.1-5.4) x10^6/uL Hgb 10.3 L (12.0-16.0) g/dL Hct 37.6 (35-47) % MCV 96.4 (78-100) fL MCH 26.4 (26-32) pg MCHC 27.4 L (32-36) g/dL RDW 14.5 H (11.5-14.0) % Plt Count 273 (150-450) x10^3/uL MPV 9.9 (7.5-11.0) fL Gran % 73.2 H (36.0-66.0) % Immature Gran % (Auto) 0.9 H (0.00-0.4) % Nucleat RBC Rel Count 0.0 (0.00-0.1) % Eos # (Auto) 0.13 (0-0.5) x10^3/uL Immature Gran # (Auto) 0.08 H (0.00-0.03) x10^3u/L Absolute Lymphs (auto) 1.49 (1.0-4.6) x10^3/uL Absolute Monos (auto) 0.58 (0.0-1.3) x10^3/uL Absolute Nucleated RBC 0.00 (0.00-0.01) x10^3u/L Lymphocytes % 17.4 L (24.0-44.0) % Monocytes % 6.8 (0.0-12.0) % Eosinophils % 1.5 (0.00-5.0) % Basophils % 0.2 (0.0-0.4) % Absolute Granulocytes 6.28 (1.4-6.9) x10^3/uL Basophils # 0.02 (0-0.4) x10^3/uL Sodium 142 (137-145) mmol/L Potassium 4.6 (3.5-5.1) mmol/L Chloride 92 L (98-107) mmol/L Carbon Dioxide 45 H (22-30) mmol/L Anion Gap 9.6 (5-15) MEQ/L BUN 24 H (7-17) mg/dL Creatinine 0.63 (0.52-1.04) mg/dL Estimated GFR > 60.0 ML/MIN Glucose 270 H (74-106) mg/dL POC Glucometer (74 to 106) mg/dL Hemoglobin A1c (4.5-6.0) % Lactic Acid (0.4-2.0) Calcium 9.2 (8.4-10.2) mg/dL Magnesium 2.1 (1.6-2.3) mg/dL Total Bilirubin 0.30 (0.2-1.3) mg/dL AST 16 (14-36) U/L ALT 17 (0-35) U/L Alkaline Phosphatase 69 (38-126) U/L Troponin I < 0.012 (0.000-0.034) ng/mL NT-Pro-B Natriuret Pep (<300) pg/mL Serum Total Protein 7.8 (6.3-8.2) g/dL Albumin 3.5 (3.5-5.0) g/dL Prealbumin (17.6-36.0) mg/dL Procalcitonin (0.030-0.080) ng/mL Urine Color (Yellow) Urine Appearance (Clear) Urine pH (4.6-8.0) Ur Specific [place] (1.005-1.030) Urine Protein (Negative) Urine Glucose (UA) (Negative) mg/dL Urine Ketones (Negative) Urine Blood (Negative) Urine Nitrite (Negative) Urine Bilirubin (Negative) Urine Urobilinogen (0.2) mg/dL Ur Leukocyte Esterase (Negative) U Hyaline Cast (Auto) (0-2) /LPF Urine Microscopic RBC (0-5) /HPF Urine Microscopic WBC (0-5) /HPF Ur Epithelial Cells (None Seen) /HPF Urine Bacteria (None Seen) /HPF Urine Yeast (Budding) (None Seen) /HPF Urine Culture Reflexed (NO) Influenza Type A Ag (NEGATIVE) Influenza Type B Ag (NEGATIVE) RSV (PCR) (NEGATIVE) SARS-CoV-2 (PCR) (NEGATIVE) Slides for Path Review YES 01/23/23 Range/Units 13:39 WBC (4.0-10.5) x10^3/uL RBC (4.1-5.4) x10^6/uL Hgb (12.0-16.0) g/dL Hct (35-47) % MCV (78-100) fL MCH (26-32) pg MCHC (32-36) g/dL RDW (11.5-14.0) % Plt Count (150-450) x10^3/uL MPV (7.5-11.0) fL Gran % (36.0-66.0) % Immature Gran % (Auto) (0.00-0.4) % Nucleat RBC Rel Count (0.00-0.1) % Eos # (Auto) (0-0.5) x10^3/uL Immature Gran # (Auto) (0.00-0.03) x10^3u/L Absolute Lymphs (auto) (1.0-4.6) x10^3/uL Absolute Monos (auto) (0.0-1.3) x10^3/uL Absolute Nucleated RBC (0.00-0.01) x10^3u/L Lymphocytes % (24.0-44.0) % Monocytes % (0.0-12.0) % Eosinophils % (0.00-5.0) % Basophils % (0.0-0.4) % Absolute Granulocytes (1.4-6.9) x10^3/uL Basophils # (0-0.4) x10^3/uL Sodium (137-145) mmol/L Potassium (3.5-5.1) mmol/L Chloride (98-107) mmol/L Carbon Dioxide (22-30) mmol/L Anion Gap (5-15) MEQ/L BUN (7-17) mg/dL Creatinine (0.52-1.04) mg/dL Estimated GFR ML/MIN Glucose (74-106) mg/dL POC Glucometer (74 to 106) mg/dL Hemoglobin A1c 10.53 H (4.5-6.0) % Lactic Acid (0.4-2.0) Calcium (8.4-10.2) mg/dL Magnesium (1.6-2.3) mg/dL Total Bilirubin (0.2-1.3) mg/dL AST (14-36) U/L ALT (0-35) U/L Alkaline Phosphatase (38-126) U/L Troponin I (0.000-0.034) ng/mL NT-Pro-B Natriuret Pep (<300) pg/mL Serum Total Protein (6.3-8.2) g/dL Albumin (3.5-5.0) g/dL Prealbumin (17.6-36.0) mg/dL Procalcitonin (0.030-0.080) ng/mL Urine Color (Yellow) Urine Appearance (Clear) Urine pH (4.6-8.0) Ur Specific [place] (1.005-1.030) Urine Protein (Negative) Urine Glucose (UA) (Negative) mg/dL Urine Ketones (Negative) Urine Blood (Negative) Urine Nitrite (Negative) Urine Bilirubin (Negative) Urine Urobilinogen (0.2) mg/dL Ur Leukocyte Esterase (Negative) U Hyaline Cast (Auto) (0-2) /LPF Urine Microscopic RBC (0-5) /HPF Urine Microscopic WBC (0-5) /HPF Ur Epithelial Cells (None Seen) /HPF Urine Bacteria (None Seen) /HPF Urine Yeast (Budding) (None Seen) /HPF Urine Culture Reflexed (NO) Influenza Type A Ag (NEGATIVE) Influenza Type B Ag (NEGATIVE) RSV (PCR) (NEGATIVE) SARS-CoV-2 (PCR) (NEGATIVE) Slides for Path Review - Progress Progress: improved, re-examined Air Movement: fair Progress Note: 01/23/23 14:43 67-year-old female with multiple medical problems including hypertension, hyperlipidemia, chronic respiratory failure secondary to COPD on 5 L oxygen, diabetes mellitus, bilateral lower extremity chronic swelling/stasis presented with increasing shortness of breath since morning. Patient reports she has been having cough productive of yellow-green sputum for the last few days and since morning having more shortness of breath with minimal activities. Patient has bilateral lower extremity sores with some discharge yellow-green. No fever or chills reported. Patient has audible wheezes on presentation despite receiving a DuoNeb in route to ER by EMS. Patient was desatting to lower 80s on EMS arrival at home. Differential includes but not limited to COPD exacerbation/bronchitis, pneumonia, pneumothorax, pleural effusion, ACS, cellulitis lower extremities, sepsis, PE etc. She is given DuoNeb and Solu-Medrol on arrival in the ER, on reevaluation she is feeling much better. Chest x-ray reviewed by me revealed left-sided effusion and no other acute findings. She is also given a dose of Zithromax and aztreonam after obtaining blood cultures. 01/23/23 15:37 Patient is feeling much better on reevaluation and saturation around 93/94% on 5 L but still have some wheezing. Work-up showed normal white count, normal lactate, negative troponin, fairly unremarkable chemistries. I believe patient has COPD exacerbation and would benefit with frequent nebs, steroids and IV antibiotics. I have discussed with , reviewed history, work-up and patient is being admitted. Blood Culture(s) Obtained: Yes Antibiotics given: Yes Discussed with : Asha Will see patient in: hospital (observation) Counseled pt/family regarding: lab results, diagnosis, need for follow-up, rad results, smoking cessation Medical Desision Making - Discussion of managment Care discussed with:: hospitalist () Reviewed:: Test results Agreed on:: Treatment plan, decision to admit Will see patient: in hospital - Diagnostic Testing Diagnostic test were ordered, analyzed, and reviewed by me: Yes Radiological Interpretation: Interpreted by me, Reviewed by me - Risk of complications The pt has a high risk of morbidity or mortality based on: Drug therapy requiring intensive monitoring for toxicity, Decision regarding hospitilization or escalation of hosp level of care - Departure Departure Disposition: Observation Clinical Impression: Acute exacerbation of chronic obstructive pulmonary disease (COPD), Acute and chronic respiratory failure with hypoxia, Cellulitis of both lower extremities Condition: Stable Critical Care Time: No
[2023-01-23 15:15] LABS: INFLUENZA A NEGATIVE (NEGATIVE); INFLUENZA B NEGATIVE (NEGATIVE); RESPIRATORY SYNCTIAL VIRUS NEGATIVE (NEGATIVE); SARS-CoV-2 Xpert Express NEGATIVE (NEGATIVE)
[2023-01-23 15:19] LABS: ALBUMIN 3.5 g/dL (3.5-5.0); ALKALINE PHOSPHATASE 69 U/L (38-126); BLOOD UREA NITROGEN 24 mg/dL (7-17); CHLORIDE 92 mmol/L (98-107); Calcium 9.2 mg/dL (8.4-10.2); Creatinine 1 0.63 mg/dL (0.52-1.04); EST GLOMERULAR FILTRATION RATE > 60.0 ML/MIN; Glucose 270 mg/dL (74-106); MAGNESIUM 2.1 mg/dL (1.6-2.3); Potassium 4.6 mmol/L (3.5-5.1); SGOT/AST 16 U/L (14-36); SGPT/ALT 17 U/L (0-35); SODIUM 142 mmol/L (137-145); Total Protein 7.8 g/dL (6.3-8.2)
[2023-01-23 15:27] LABS: ANION GAP 9.6 MEQ/L (5-15); Carbon Dioxide 45 mmol/L (22-30)
[2023-01-23 15:32] LABS: Slide Review 1 YES
[2023-01-23 15:37] LABS: Appearance Clear (Clear); Bilirubin Negative (Negative); Blood Negative (Negative); Glucose, Urine 500 mg/dL (Negative); Hyaline Casts NONE SEEN /LPF (0-2); Ketones Negative (Negative); Leukocyte Esterase Trace (Negative); Nitrite Negative (Negative); Protein,Urine Dip 300 (Negative); RBC 0-2 /HPF (0-5); Urobilinogen 0.2 mg/dL (0.2); WBC 21-50 /HPF (0-5)
[2023-01-23 15:45] LABS: PROCALCITONIN 0.06 ng/mL (0.030-0.080)
[2023-01-23 15:49] LABS: ADD URINE CULTURE? YES (NO); Bacteria Few /HPF (None Seen); Budding Yeast Many /HPF (None Seen); Epithelial Cells Few /HPF (None Seen)
[2023-01-23] MEDS ORDERED: Zofran 4 MG/2 ML VIAL IV PRN (16:05)
[2023-01-23] MEDS ORDERED: HUMALOG SQ PRN (16:05)
[2023-01-23] MEDS ORDERED: solu-MEDROL 60 MG, Sterile H2O 10 ml 2 ML IV SCH ×2 (18:00)
[2023-01-23] MEDS: DUONEB 0.5-3 MG/3 ml Neb IH SCH (19:46)
[2023-01-23] MEDS ORDERED: PHARMACY DOSING REQUEST MC ONE (20:10)
--- NOTE | 2023-01-23 20:31 | XRAY ---
Indication: Short of breath. Comparison: November 27, 2022 Portable chest demonstrates new mild bibasilar infiltrates/atelectasis without large effusion. Heart not enlarged. Bony thorax intact.
[2023-01-23] MEDS: TYLENOL 325 MG PO PRN (21:33)
[2023-01-23] MEDS: AZACTAM 1 GM*** 2 GM in Sodium Chloride 0.9% 100 ML IV SCH (21:35)
[2023-01-23] MEDS: REQUIP 2MG TAB PO SCH (21:41)
[2023-01-23] MEDS ORDERED: HUMALOG SQ ONE (22:58)
[2023-01-23] MEDS: solu-MEDROL 60 MG, Sterile H2O 10 ml 1 ML IV SCH ×2 (23:25)
[2023-01-24] MEDS: DUONEB 0.5-3 MG/3 ml Neb IH SCH ×4 (00:25→19:54)
[2023-01-24] MEDS: HUMALOG SQ PRN ×5 (04:19→21:41)
[2023-01-24] MEDS ORDERED: TYLENOL 325 MG ONE (04:33)
[2023-01-24] MEDS: TYLENOL 325 MG PO PRN ×2 (04:34→17:00)
[2023-01-24] MEDS ORDERED: Merrem IV ONE (05:36)
[2023-01-24] MEDS ORDERED: Sodium Chloride 100ML MINI-BAG PLUS 100 ML IV ONE (05:37)
[2023-01-24] MEDS ORDERED: Sterile H2O 10 ml IJ ONE ×2 (05:38)
[2023-01-24] MEDS ORDERED: solu-MEDROL ONE ×2 (05:38)
[2023-01-24] MEDS: Merrem 1 GM in Sodium Chloride 100ML MINI-BAG PLUS 100 ML IV SCH ×3 (05:49→23:05)
[2023-01-24] MEDS: solu-MEDROL 60 MG, Sterile H2O 10 ml 1 ML IV SCH ×8 (05:50→23:19)
[2023-01-24 05:55] LABS: Absolute Neutrophil Ct (ANC) 8.94 x10^3/uL (1.4-6.9); BASOPHIL % 0.1 % (0.0-0.4); Basophil (Absolute #) 0.01 x10^3/uL (0-0.4); Eosinophil % 0.1 % (0.00-5.0); Eosinophil (Absolute #) 0.01 x10^3/uL (0-0.5); Hematocrit 37.1 % (35-47); Hemoglobin 10.5 g/dL (12.0-16.0); IMMATURE GRAN # 0.08 x10^3u/L (0.00-0.03); IMMATURE GRAN % 0.8 % (0.00-0.4); Lymphocyte (Absolute #) 0.65 x10^3/uL (1.0-4.6); Lymphocytes % 6.7 % (24.0-44.0); Mean Cell Volume 94.6 fL (78-100); Mean Corpuscular Hemoglobin 26.8 pg (26-32); Mean Corpuscular Hgb Concent. 28.3 g/dL (32-36); Mean Platelet Volume 10.1 fL (7.5-11.0); Monocyte (Absolute #) 0.08 x10^3/uL (0.0-1.3); Monocytes % 0.8 % (0.0-12.0); Neutrophil % 91.5 % (36.0-66.0); Platelet Count 265 x10^3/uL (150-450); Red Blood Count 3.92 x10^6/uL (4.1-5.4); Red Cell Distribution Width 14.6 % (11.5-14.0); White Blood Count 9.8 x10^3/uL (4.0-10.5)
[2023-01-24] MEDS: AZACTAM 1 GM*** 2 GM in Sodium Chloride 0.9% 100 ML IV SCH (05:57)
[2023-01-24 06:07] LABS: ALBUMIN 3.3 g/dL (3.5-5.0); ALKALINE PHOSPHATASE 64 U/L (38-126); BLOOD UREA NITROGEN 25 mg/dL (7-17); CHLORIDE 93 mmol/L (98-107); Calcium 8.9 mg/dL (8.4-10.2); Creatinine 1 0.61 mg/dL (0.52-1.04); EST GLOMERULAR FILTRATION RATE > 60.0 ML/MIN; Glucose 399 mg/dL (74-106); Potassium 4.2 mmol/L (3.5-5.1); SGOT/AST 17 U/L (14-36); SGPT/ALT 19 U/L (0-35); SODIUM 139 mmol/L (137-145); Total Protein 7.2 g/dL (6.3-8.2)
[2023-01-24 06:13] LABS: Carbon Dioxide 38 mmol/L (22-30)
[2023-01-24 06:20] LABS: ANION GAP 12.2 MEQ/L (5-15)
[2023-01-24] MEDS ORDERED: DUONEB 0.5-3 MG/3 ml Neb IH ONE (07:18)
--- NOTE | 2023-01-24 08:30 | PCM.HP ---
History of Present Illness - Chief Complaint Chief Complaint: c/o shortness of breath History of Present Illness: is a 67 year old female.with multiple medical problems including hypertension, hyperlipidemia, chronic respiratory failure secondary to COPD on 5 L oxygen, diabetes mellitus, bilateral lower extremity chronic swelling/stasis presented with increasing shortness of breath since morning. Patient reports she has been having cough productive of yellow-green sputum for the last few days and since morning having more shortness of breath with minimal activities. Patient has bilateral lower extremity sores with some discharge yellow-green. No fever or chills reported. Patient has audible wheezes on presentation despite receiving a DuoNeb in route to ER by EMS. Patient was desatting to lower 80s on EMS arrival at home. Timing/Duration: today, constant, gradual onset, worse Activities at Onset: rest Severity of Dyspnea-Max: moderate Severity of Dyspnea-Current: moderate Possible Cause: frequent episodes Modifying Factors: Improves With: albuterol nebulizer. Worsens With: coughing, exertion Associated Symptoms: cough, wheezing, leg swelling, productive cough Allergies/Adverse Reactions: - Review of Systems Constitutional: No Fever, No Chills Eyes: No Symptoms Ears, Nose, & Throat: No Symptoms Respiratory: Cough, Orthopnea, Short Of Breath, Wheezing Cardiac: No Chest Pain, No Edema, No Syncope Abdominal/Gastrointestinal: No Abdominal Pain, No Nausea, No Vomiting, No Diarrhea Genitourinary Symptoms: No Dysuria Musculoskeletal: No Back Pain, No Neck Pain Skin: No Rash Neurological: No Dizziness, No Focal Weakness, No Sensory Changes Psychological: No Symptoms Endocrine: No Symptoms Hematologic/Lymphatic: No Symptoms Immunological/Allergic: No Symptoms Medications & Allergies Home Medications: Home Medication List Albuterol Common Canister [Ventolin Common Canister] 2 puff IH Q4-6HPRN PRN 01/23/23 [History Confirmed 01/23/23] Ropinirole HCl 3 mg PO TID 01/23/23 [History Confirmed 01/23/23] Allergies/Adverse Reactions: Allergies Allergy/AdvReac Type Severity Reaction Status Date / Time codeine Allergy Intermediate rash, Verified 11/27/22 16:46 itching cefaclor [From Ceclor] Allergy Mild Rash Verified 11/27/22 16:46 Penicillins Allergy Mild Swelling Verified 11/27/22 16:46 bacitracin AdvReac Mild Itching Verified 11/27/22 16:46 [From Neosporin ([id number])] bacitracin zinc AdvReac Mild Itching Verified 11/27/22 16:46 [From Neosporin ([id number])] levofloxacin [From Levaquin] AdvReac Mild itch Verified 11/27/22 16:46 neomycin sulfate AdvReac Mild itch Verified 11/27/22 16:46 [From Neosporin ([id number])] polymyxin B AdvReac Mild Itching Verified 11/27/22 16:46 [From Neosporin ([id number])] - Past Medical History Past Medical History: Yes Neurological History: No Pertinent History ENT History: No Pertinent History Cardiac History: Congestive Heart Failure, Hypertension, Peripheral Vascular Disease Respiratory History: COPD, Emphysema Endocrine Medical History: Diabetes Type II Musculoskelatal History: Arthritis, Fibromyalgia GI Medical History: No Pertinent History History: Other Pyscho-Social History: No Pertinent History Reproductive Disorders: No Pertinent History Comment: Stress Incontinence - Female History Are you now?: No - Past Surgical History Past Surgical History: Yes Neuro Surgical History: No Pertinent History Cardiac History: No Pertinent History Respiratory Surgery: No Pertinent History GI Surgical History: Cholecystectomy Genitourinary Surgical Hx: No Pertinent History Musculskeletal Surgical Hx: No Pertinent History Female Surgical History: Tubal Ligation - Social History Smoking Status: Current every day smoker How long have you smoked: 50 years Exposure to second hand smoke: Yes Alcohol: None Drug Use: none Significant Family History: no pertinent family hx - Physical Exam Vital Signs: Vital Signs - 24 hr Temp Pulse Resp BP BP Pulse Ox 01/24/23 07:45 100 H 18 92 L 01/24/23 07:15 97.5 F 105 H 20 199/86 91 L 01/24/23 03:55 97.3 F 102 H 24 179/79 94 L 01/24/23 00:25 107 H 28 H 94 L 01/24/23 00:00 97.3 F 104 H 25 H 148/63 94 L 01/23/23 20:00 97.5 F 121 H 24 136/77 90 L 01/23/23 19:47 106 H 32 H 88 L 01/23/23 17:34 104 H 20 94 L 01/23/23 16:49 98.2 F 114 H 24 185/75 93 L 01/23/23 15:39 94 L 01/23/23 15:04 110 H 153/65 93 L 01/23/23 14:43 98 H 20 96 01/23/23 13:54 102 H 130/91 97 01/23/23 13:53 100 H 15 79 L 01/23/23 13:50 99 H 18 79 L 01/23/23 13:44 108 H 22 94 L 01/23/23 13:22 98.4 F 109 H 26 H 140/77 94 L General Appearance: no apparent distress, alert Neurologic Exam: alert, 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, cooperative, normal mood/affect, nml cerebellar function, nml station & gait, sensation nml, No motor deficits Eye Exam: PERRL/EOMI, eyes nml inspection Ears, Nose, Throat Exam: normal ENT inspection, TMs normal, pharynx normal, moist mucous membranes Neck Exam: normal inspection, non-tender, supple, full range of motion Respiratory Exam: diminished breath sounds, crackles/rales, rhonchi, wheezing, No respiratory distress Cardiovascular Exam: regular rate/rhythm, normal heart sounds, normal peripheral pulses Gastrointestinal/Abdomen Exam: soft, normal bowel sounds, No tenderness, No mass Back Exam: normal inspection, normal range of motion, No CVA tenderness, No vertebral tenderness Extremity Exam: normal inspection, normal range of motion, pelvis stable Skin Exam: normal color, warm, dry, No rash Wound Assessment: Skin/Wound Assessment Wound/Incision Assessment Start: 01/23/23 17:34 Text: Status: Active Freq: Q6H Protocol: Document 01/24/23 02:00 WW (Rec: 01/24/23 02:15 [id number]) Wound/Incision Assessment Buttock Wound Assessment Shift Assessment Wound Type Reddness, scabbs Wound Stage Non Pressure Wound Drainage Amount None General Appearance Open to air,Reddened Surrounding Tissue Dark Red,Blanched/Dull Lymphatic Exam: No adenopathy Results - Labs Lab/Micro Results: Lab Results-Last 24 Hours 01/23/23 01/23/23 01/23/23 Range/Units 13:39 14:15 14:15 WBC 8.6 (4.0-10.5) x10^3/uL RBC 3.90 L (4.1-5.4) x10^6/uL Hgb 10.3 L (12.0-16.0) g/dL Hct 37.6 (35-47) % MCV 96.4 (78-100) fL MCH 26.4 (26-32) pg MCHC 27.4 L (32-36) g/dL RDW 14.5 H (11.5-14.0) % Plt Count 273 (150-450) x10^3/uL MPV 9.9 (7.5-11.0) fL Gran % 73.2 H (36.0-66.0) % Immature Gran % (Auto) 0.9 H (0.00-0.4) % Nucleat RBC Rel Count 0.0 (0.00-0.1) % Eos # (Auto) 0.13 (0-0.5) x10^3/uL Immature Gran # (Auto) 0.08 H (0.00-0.03) x10^3u/L Absolute Lymphs (auto) 1.49 (1.0-4.6) x10^3/uL Absolute Monos (auto) 0.58 (0.0-1.3) x10^3/uL Absolute Nucleated RBC 0.00 (0.00-0.01) x10^3u/L Lymphocytes % 17.4 L (24.0-44.0) % Monocytes % 6.8 (0.0-12.0) % Eosinophils % 1.5 (0.00-5.0) % Basophils % 0.2 (0.0-0.4) % Absolute Granulocytes 6.28 (1.4-6.9) x10^3/uL Basophils # 0.02 (0-0.4) x10^3/uL Sodium 142 (137-145) mmol/L Potassium 4.6 (3.5-5.1) mmol/L Chloride 92 L (98-107) mmol/L Carbon Dioxide 45 H (22-30) mmol/L Anion Gap 9.6 (5-15) MEQ/L BUN 24 H (7-17) mg/dL Creatinine 0.63 (0.52-1.04) mg/dL Estimated GFR > 60.0 ML/MIN Glucose 270 H (74-106) mg/dL POC Glucometer (74 to 106) mg/dL Hemoglobin A1c 10.53 H (4.5-6.0) % Lactic Acid (0.4-2.0) Calcium 9.2 (8.4-10.2) mg/dL Magnesium 2.1 (1.6-2.3) mg/dL Total Bilirubin 0.30 (0.2-1.3) mg/dL AST 16 (14-36) U/L ALT 17 (0-35) U/L Alkaline Phosphatase 69 (38-126) U/L Troponin I (0.000-0.034) ng/mL NT-Pro-B Natriuret Pep (<300) pg/mL Serum Total Protein 7.8 (6.3-8.2) g/dL Albumin 3.5 (3.5-5.0) g/dL Prealbumin (17.6-36.0) mg/dL Procalcitonin (0.030-0.080) ng/mL Urine Color (Yellow) Urine Appearance (Clear) Urine pH (4.6-8.0) Ur Specific [place] (1.005-1.030) Urine Protein (Negative) Urine Glucose (UA) (Negative) mg/dL Urine Ketones (Negative) Urine Blood (Negative) Urine Nitrite (Negative) Urine Bilirubin (Negative) Urine Urobilinogen (0.2) mg/dL Ur Leukocyte Esterase (Negative) U Hyaline Cast (Auto) (0-2) /LPF Urine Microscopic RBC (0-5) /HPF Urine Microscopic WBC (0-5) /HPF Ur Epithelial Cells (None Seen) /HPF Urine Bacteria (None Seen) /HPF Urine Yeast (Budding) (None Seen) /HPF Urine Culture Reflexed (NO) Influenza Type A Ag (NEGATIVE) Influenza Type B Ag (NEGATIVE) RSV (PCR) (NEGATIVE) SARS-CoV-2 (PCR) (NEGATIVE) Slides for Path Review YES 01/23/23 01/23/23 01/23/23 Range/Units 14:15 14:15 14:35 WBC (4.0-10.5) x10^3/uL RBC (4.1-5.4) x10^6/uL Hgb (12.0-16.0) g/dL Hct (35-47) % MCV (78-100) fL MCH (26-32) pg MCHC (32-36) g/dL RDW (11.5-14.0) % Plt Count (150-450) x10^3/uL MPV (7.5-11.0) fL Gran % (36.0-66.0) % Immature Gran % (Auto) (0.00-0.4) % Nucleat RBC Rel Count (0.00-0.1) % Eos # (Auto) (0-0.5) x10^3/uL Immature Gran # (Auto) (0.00-0.03) x10^3u/L Absolute Lymphs (auto) (1.0-4.6) x10^3/uL Absolute Monos (auto) (0.0-1.3) x10^3/uL Absolute Nucleated RBC (0.00-0.01) x10^3u/L Lymphocytes % (24.0-44.0) % Monocytes % (0.0-12.0) % Eosinophils % (0.00-5.0) % Basophils % (0.0-0.4) % Absolute Granulocytes (1.4-6.9) x10^3/uL Basophils # (0-0.4) x10^3/uL Sodium (137-145) mmol/L Potassium (3.5-5.1) mmol/L Chloride (98-107) mmol/L Carbon Dioxide (22-30) mmol/L Anion Gap (5-15) MEQ/L BUN (7-17) mg/dL Creatinine (0.52-1.04) mg/dL Estimated GFR ML/MIN Glucose (74-106) mg/dL POC Glucometer (74 to 106) mg/dL Hemoglobin A1c (4.5-6.0) % Lactic Acid 1.3 (0.4-2.0) Calcium (8.4-10.2) mg/dL Magnesium (1.6-2.3) mg/dL Total Bilirubin (0.2-1.3) mg/dL AST (14-36) U/L ALT (0-35) U/L Alkaline Phosphatase (38-126) U/L Troponin I < 0.012 (0.000-0.034) ng/mL NT-Pro-B Natriuret Pep (<300) pg/mL Serum Total Protein (6.3-8.2) g/dL Albumin (3.5-5.0) g/dL Prealbumin (17.6-36.0) mg/dL Procalcitonin (0.030-0.080) ng/mL Urine Color (Yellow) Urine Appearance (Clear) Urine pH (4.6-8.0) Ur Specific [place] (1.005-1.030) Urine Protein (Negative) Urine Glucose (UA) (Negative) mg/dL Urine Ketones (Negative) Urine Blood (Negative) Urine Nitrite (Negative) Urine Bilirubin (Negative) Urine Urobilinogen (0.2) mg/dL Ur Leukocyte Esterase (Negative) U Hyaline Cast (Auto) (0-2) /LPF Urine Microscopic RBC (0-5) /HPF Urine Microscopic WBC (0-5) /HPF Ur Epithelial Cells (None Seen) /HPF Urine Bacteria (None Seen) /HPF Urine Yeast (Budding) (None Seen) /HPF Urine Culture Reflexed (NO) Influenza Type A Ag NEGATIVE (NEGATIVE) Influenza Type B Ag NEGATIVE (NEGATIVE) RSV (PCR) NEGATIVE (NEGATIVE) SARS-CoV-2 (PCR) NEGATIVE (NEGATIVE) Slides for Path Review 01/23/23 01/23/23 01/23/23 Range/Units 15:00 15:19 17:18 WBC (4.0-10.5) x10^3/uL RBC (4.1-5.4) x10^6/uL Hgb (12.0-16.0) g/dL Hct (35-47) % MCV (78-100) fL MCH (26-32) pg MCHC (32-36) g/dL RDW (11.5-14.0) % Plt Count (150-450) x10^3/uL MPV (7.5-11.0) fL Gran % (36.0-66.0) % Immature Gran % (Auto) (0.00-0.4) % Nucleat RBC Rel Count (0.00-0.1) % Eos # (Auto) (0-0.5) x10^3/uL Immature Gran # (Auto) (0.00-0.03) x10^3u/L Absolute Lymphs (auto) (1.0-4.6) x10^3/uL Absolute Monos (auto) (0.0-1.3) x10^3/uL Absolute Nucleated RBC (0.00-0.01) x10^3u/L Lymphocytes % (24.0-44.0) % Monocytes % (0.0-12.0) % Eosinophils % (0.00-5.0) % Basophils % (0.0-0.4) % Absolute Granulocytes (1.4-6.9) x10^3/uL Basophils # (0-0.4) x10^3/uL Sodium (137-145) mmol/L Potassium (3.5-5.1) mmol/L Chloride (98-107) mmol/L Carbon Dioxide (22-30) mmol/L Anion Gap (5-15) MEQ/L BUN (7-17) mg/dL Creatinine (0.52-1.04) mg/dL Estimated GFR ML/MIN Glucose (74-106) mg/dL POC Glucometer 288 H (74 to 106) mg/dL Hemoglobin A1c (4.5-6.0) % Lactic Acid (0.4-2.0) Calcium (8.4-10.2) mg/dL Magnesium (1.6-2.3) mg/dL Total Bilirubin (0.2-1.3) mg/dL AST (14-36) U/L ALT (0-35) U/L Alkaline Phosphatase (38-126) U/L Troponin I (0.000-0.034) ng/mL NT-Pro-B Natriuret Pep 287 (<300) pg/mL Serum Total Protein (6.3-8.2) g/dL Albumin (3.5-5.0) g/dL Prealbumin (17.6-36.0) mg/dL Procalcitonin 0.060 (0.030-0.080) ng/mL Urine Color Yellow (Yellow) Urine Appearance Clear (Clear) Urine pH 6.0 (4.6-8.0) Ur Specific [place] 1.020 (1.005-1.030) Urine Protein 300 A (Negative) Urine Glucose (UA) 500 A (Negative) mg/dL Urine Ketones Negative (Negative) Urine Blood Negative (Negative) Urine Nitrite Negative (Negative) Urine Bilirubin Negative (Negative) Urine Urobilinogen 0.2 (0.2) mg/dL Ur Leukocyte Esterase Trace A (Negative) U Hyaline Cast (Auto) NONE SEEN (0-2) /LPF Urine Microscopic RBC 0-2 (0-5) /HPF Urine Microscopic WBC 21-50 A (0-5) /HPF Ur Epithelial Cells Few (None Seen) /HPF Urine Bacteria Few A (None Seen) /HPF Urine Yeast (Budding) Many A (None Seen) /HPF Urine Culture Reflexed YES (NO) Influenza Type A Ag (NEGATIVE) Influenza Type B Ag (NEGATIVE) RSV (PCR) (NEGATIVE) SARS-CoV-2 (PCR) (NEGATIVE) Slides for Path Review 01/23/23 01/23/23 01/23/23 Range/Units 18:00 18:15 21:26 WBC (4.0-10.5) x10^3/uL RBC (4.1-5.4) x10^6/uL Hgb (12.0-16.0) g/dL Hct (35-47) % MCV (78-100) fL MCH (26-32) pg MCHC (32-36) g/dL RDW (11.5-14.0) % Plt Count (150-450) x10^3/uL MPV (7.5-11.0) fL Gran % (36.0-66.0) % Immature Gran % (Auto) (0.00-0.4) % Nucleat RBC Rel Count (0.00-0.1) % Eos # (Auto) (0-0.5) x10^3/uL Immature Gran # (Auto) (0.00-0.03) x10^3u/L Absolute Lymphs (auto) (1.0-4.6) x10^3/uL Absolute Monos (auto) (0.0-1.3) x10^3/uL Absolute Nucleated RBC (0.00-0.01) x10^3u/L Lymphocytes % (24.0-44.0) % Monocytes % (0.0-12.0) % Eosinophils % (0.00-5.0) % Basophils % (0.0-0.4) % Absolute Granulocytes (1.4-6.9) x10^3/uL Basophils # (0-0.4) x10^3/uL Sodium (137-145) mmol/L Potassium (3.5-5.1) mmol/L Chloride (98-107) mmol/L Carbon Dioxide (22-30) mmol/L Anion Gap (5-15) MEQ/L BUN (7-17) mg/dL Creatinine (0.52-1.04) mg/dL Estimated GFR ML/MIN Glucose (74-106) mg/dL POC Glucometer 528 H* (74 to 106) mg/dL Hemoglobin A1c (4.5-6.0) % Lactic Acid (0.4-2.0) Calcium (8.4-10.2) mg/dL Magnesium (1.6-2.3) mg/dL Total Bilirubin (0.2-1.3) mg/dL AST (14-36) U/L ALT (0-35) U/L Alkaline Phosphatase (38-126) U/L Troponin I < 0.012 (0.000-0.034) ng/mL NT-Pro-B Natriuret Pep (<300) pg/mL Serum Total Protein (6.3-8.2) g/dL Albumin (3.5-5.0) g/dL Prealbumin 18.53 (17.6-36.0) mg/dL Procalcitonin (0.030-0.080) ng/mL Urine Color (Yellow) Urine Appearance (Clear) Urine pH (4.6-8.0) Ur Specific [place] (1.005-1.030) Urine Protein (Negative) Urine Glucose (UA) (Negative) mg/dL Urine Ketones (Negative) Urine Blood (Negative) Urine Nitrite (Negative) Urine Bilirubin (Negative) Urine Urobilinogen (0.2) mg/dL Ur Leukocyte Esterase (Negative) U Hyaline Cast (Auto) (0-2) /LPF Urine Microscopic RBC (0-5) /HPF Urine Microscopic WBC (0-5) /HPF Ur Epithelial Cells (None Seen) /HPF Urine Bacteria (None Seen) /HPF Urine Yeast (Budding) (None Seen) /HPF Urine Culture Reflexed (NO) Influenza Type A Ag (NEGATIVE) Influenza Type B Ag (NEGATIVE) RSV (PCR) (NEGATIVE) SARS-CoV-2 (PCR) (NEGATIVE) Slides for Path Review 01/23/23 01/23/23 01/23/23 Range/Units 21:31 22:00 22:00 WBC (4.0-10.5) x10^3/uL RBC (4.1-5.4) x10^6/uL Hgb (12.0-16.0) g/dL Hct (35-47) % MCV (78-100) fL MCH (26-32) pg MCHC (32-36) g/dL RDW (11.5-14.0) % Plt Count (150-450) x10^3/uL MPV (7.5-11.0) fL Gran % (36.0-66.0) % Immature Gran % (Auto) (0.00-0.4) % Nucleat RBC Rel Count (0.00-0.1) % Eos # (Auto) (0-0.5) x10^3/uL Immature Gran # (Auto) (0.00-0.03) x10^3u/L Absolute Lymphs (auto) (1.0-4.6) x10^3/uL Absolute Monos (auto) (0.0-1.3) x10^3/uL Absolute Nucleated RBC (0.00-0.01) x10^3u/L Lymphocytes % (24.0-44.0) % Monocytes % (0.0-12.0) % Eosinophils % (0.00-5.0) % Basophils % (0.0-0.4) % Absolute Granulocytes (1.4-6.9) x10^3/uL Basophils # (0-0.4) x10^3/uL Sodium (137-145) mmol/L Potassium (3.5-5.1) mmol/L Chloride (98-107) mmol/L Carbon Dioxide (22-30) mmol/L Anion Gap (5-15) MEQ/L BUN (7-17) mg/dL Creatinine (0.52-1.04) mg/dL Estimated GFR ML/MIN Glucose 542 H* (74-106) mg/dL POC Glucometer 502 H* (74 to 106) mg/dL Hemoglobin A1c (4.5-6.0) % Lactic Acid (0.4-2.0) Calcium (8.4-10.2) mg/dL Magnesium (1.6-2.3) mg/dL Total Bilirubin (0.2-1.3) mg/dL AST (14-36) U/L ALT (0-35) U/L Alkaline Phosphatase (38-126) U/L Troponin I < 0.012 (0.000-0.034) ng/mL NT-Pro-B Natriuret Pep (<300) pg/mL Serum Total Protein (6.3-8.2) g/dL Albumin (3.5-5.0) g/dL Prealbumin (17.6-36.0) mg/dL Procalcitonin (0.030-0.080) ng/mL Urine Color (Yellow) Urine Appearance (Clear) Urine pH (4.6-8.0) Ur Specific [place] (1.005-1.030) Urine Protein (Negative) Urine Glucose (UA) (Negative) mg/dL Urine Ketones (Negative) Urine Blood (Negative) Urine Nitrite (Negative) Urine Bilirubin (Negative) Urine Urobilinogen (0.2) mg/dL Ur Leukocyte Esterase (Negative) U Hyaline Cast (Auto) (0-2) /LPF Urine Microscopic RBC (0-5) /HPF Urine Microscopic WBC (0-5) /HPF Ur Epithelial Cells (None Seen) /HPF Urine Bacteria (None Seen) /HPF Urine Yeast (Budding) (None Seen) /HPF Urine Culture Reflexed (NO) Influenza Type A Ag (NEGATIVE) Influenza Type B Ag (NEGATIVE) RSV (PCR) (NEGATIVE) SARS-CoV-2 (PCR) (NEGATIVE) Slides for Path Review 01/24/23 01/24/23 01/24/23 Range/Units 04:12 05:20 05:20 WBC 9.8 (4.0-10.5) x10^3/uL RBC 3.92 L (4.1-5.4) x10^6/uL Hgb 10.5 L (12.0-16.0) g/dL Hct 37.1 (35-47) % MCV 94.6 (78-100) fL MCH 26.8 (26-32) pg MCHC 28.3 L (32-36) g/dL RDW 14.6 H (11.5-14.0) % Plt Count 265 (150-450) x10^3/uL MPV 10.1 (7.5-11.0) fL Gran % 91.5 H (36.0-66.0) % Immature Gran % (Auto) 0.8 H (0.00-0.4) % Nucleat RBC Rel Count 0.0 (0.00-0.1) % Eos # (Auto) 0.01 (0-0.5) x10^3/uL Immature Gran # (Auto) 0.08 H (0.00-0.03) x10^3u/L Absolute Lymphs (auto) 0.65 L (1.0-4.6) x10^3/uL Absolute Monos (auto) 0.08 (0.0-1.3) x10^3/uL Absolute Nucleated RBC 0.00 (0.00-0.01) x10^3u/L Lymphocytes % 6.7 L (24.0-44.0) % Monocytes % 0.8 (0.0-12.0) % Eosinophils % 0.1 (0.00-5.0) % Basophils % 0.1 (0.0-0.4) % Absolute Granulocytes 8.94 H (1.4-6.9) x10^3/uL Basophils # 0.01 (0-0.4) x10^3/uL Sodium 139 (137-145) mmol/L Potassium 4.2 (3.5-5.1) mmol/L Chloride 93 L (98-107) mmol/L Carbon Dioxide 38 H (22-30) mmol/L Anion Gap 12.2 (5-15) MEQ/L BUN 25 H (7-17) mg/dL Creatinine 0.61 (0.52-1.04) mg/dL Estimated GFR > 60.0 ML/MIN Glucose 399 H (74-106) mg/dL POC Glucometer 339 H (74 to 106) mg/dL Hemoglobin A1c (4.5-6.0) % Lactic Acid (0.4-2.0) Calcium 8.9 (8.4-10.2) mg/dL Magnesium (1.6-2.3) mg/dL Total Bilirubin 0.20 (0.2-1.3) mg/dL AST 17 (14-36) U/L ALT 19 (0-35) U/L Alkaline Phosphatase 64 (38-126) U/L Troponin I (0.000-0.034) ng/mL NT-Pro-B Natriuret Pep (<300) pg/mL Serum Total Protein 7.2 (6.3-8.2) g/dL Albumin 3.3 L (3.5-5.0) g/dL Prealbumin (17.6-36.0) mg/dL Procalcitonin (0.030-0.080) ng/mL Urine Color (Yellow) Urine Appearance (Clear) Urine pH (4.6-8.0) Ur Specific [place] (1.005-1.030) Urine Protein (Negative) Urine Glucose (UA) (Negative) mg/dL Urine Ketones (Negative) Urine Blood (Negative) Urine Nitrite (Negative) Urine Bilirubin (Negative) Urine Urobilinogen (0.2) mg/dL Ur Leukocyte Esterase (Negative) U Hyaline Cast (Auto) (0-2) /LPF Urine Microscopic RBC (0-5) /HPF Urine Microscopic WBC (0-5) /HPF Ur Epithelial Cells (None Seen) /HPF Urine Bacteria (None Seen) /HPF Urine Yeast (Budding) (None Seen) /HPF Urine Culture Reflexed (NO) Influenza Type A Ag (NEGATIVE) Influenza Type B Ag (NEGATIVE) RSV (PCR) (NEGATIVE) SARS-CoV-2 (PCR) (NEGATIVE) Slides for Path Review 01/24/23 Range/Units 06:58 WBC (4.0-10.5) x10^3/uL RBC (4.1-5.4) x10^6/uL Hgb (12.0-16.0) g/dL Hct (35-47) % MCV (78-100) fL MCH (26-32) pg MCHC (32-36) g/dL RDW (11.5-14.0) % Plt Count (150-450) x10^3/uL MPV (7.5-11.0) fL Gran % (36.0-66.0) % Immature Gran % (Auto) (0.00-0.4) % Nucleat RBC Rel Count (0.00-0.1) % Eos # (Auto) (0-0.5) x10^3/uL Immature Gran # (Auto) (0.00-0.03) x10^3u/L Absolute Lymphs (auto) (1.0-4.6) x10^3/uL Absolute Monos (auto) (0.0-1.3) x10^3/uL Absolute Nucleated RBC (0.00-0.01) x10^3u/L Lymphocytes % (24.0-44.0) % Monocytes % (0.0-12.0) % Eosinophils % (0.00-5.0) % Basophils % (0.0-0.4) % Absolute Granulocytes (1.4-6.9) x10^3/uL Basophils # (0-0.4) x10^3/uL Sodium (137-145) mmol/L Potassium (3.5-5.1) mmol/L Chloride (98-107) mmol/L Carbon Dioxide (22-30) mmol/L Anion Gap (5-15) MEQ/L BUN (7-17) mg/dL Creatinine (0.52-1.04) mg/dL Estimated GFR ML/MIN Glucose (74-106) mg/dL POC Glucometer 292 H (74 to 106) mg/dL Hemoglobin A1c (4.5-6.0) % Lactic Acid (0.4-2.0) Calcium (8.4-10.2) mg/dL Magnesium (1.6-2.3) mg/dL Total Bilirubin (0.2-1.3) mg/dL AST (14-36) U/L ALT (0-35) U/L Alkaline Phosphatase (38-126) U/L Troponin I (0.000-0.034) ng/mL NT-Pro-B Natriuret Pep (<300) pg/mL Serum Total Protein (6.3-8.2) g/dL Albumin (3.5-5.0) g/dL Prealbumin (17.6-36.0) mg/dL Procalcitonin (0.030-0.080) ng/mL Urine Color (Yellow) Urine Appearance (Clear) Urine pH (4.6-8.0) Ur Specific [place] (1.005-1.030) Urine Protein (Negative) Urine Glucose (UA) (Negative) mg/dL Urine Ketones (Negative) Urine Blood (Negative) Urine Nitrite (Negative) Urine Bilirubin (Negative) Urine Urobilinogen (0.2) mg/dL Ur Leukocyte Esterase (Negative) U Hyaline Cast (Auto) (0-2) /LPF Urine Microscopic RBC (0-5) /HPF Urine Microscopic WBC (0-5) /HPF Ur Epithelial Cells (None Seen) /HPF Urine Bacteria (None Seen) /HPF Urine Yeast (Budding) (None Seen) /HPF Urine Culture Reflexed (NO) Influenza Type A Ag (NEGATIVE) Influenza Type B Ag (NEGATIVE) RSV (PCR) (NEGATIVE) SARS-CoV-2 (PCR) (NEGATIVE) Slides for Path Review Accuchecks Date 01/24/23 Date 01/23/23 Time 07:14 Time 17:36 - Radiology Impressions Radiology Exams & Impressions: Radiology Procedures Category Date Time Status CHEST 1 VIEW (PORTABLE) Stat Exams 01/23/23 13:39 Completed - Other Procedures and Tests Respiratory Therapy 01/23/23 16:05 Oxygen Nasal Cannula 5 lpm Assessment/Plan (1) Acute and chronic respiratory failure with hypoxia Current Visit: Yes Status: Acute Assessment & Plan: Chief Complaint Diagnosis Acute COPD exacerbation Allergies Allergy/AdvReac Type Severity Reaction Status Date / Time codeine Allergy Intermediate rash, Verified 11/27/22 16:46 itching cefaclor [From Ceclor] Allergy Mild Rash Verified 11/27/22 16:46 Penicillins Allergy Mild Swelling Verified 11/27/22 16:46 bacitracin AdvReac Mild Itching Verified 11/27/22 16:46 [From Neosporin ([id number])] bacitracin zinc AdvReac Mild Itching Verified 11/27/22 16:46 [From Neosporin ([id number])] levofloxacin [From Levaquin] AdvReac Mild itch Verified 11/27/22 16:46 neomycin sulfate AdvReac Mild itch Verified 11/27/22 16:46 [From Neosporin (gtm-dli-[id number])] polymyxin B AdvReac Mild Itching Verified 11/27/22 16:46 [From Neosporin ([id number])] Vital Signs (Last 24 hours) Temp Pulse Resp BP BP Pulse Ox 01/24/23 07:45 100 H 18 92 L 01/24/23 07:15 97.5 F 105 H 20 199/86 91 L 01/24/23 03:55 97.3 F 102 H 24 179/79 94 L 01/24/23 00:25 107 H 28 H 94 L 01/24/23 00:00 97.3 F 104 H 25 H 148/63 94 L 01/23/23 20:00 97.5 F 121 H 24 136/77 90 L 01/23/23 19:47 106 H 32 H 88 L 01/23/23 17:34 104 H 20 94 L 01/23/23 16:49 98.2 F 114 H 24 185/75 93 L 01/23/23 15:39 94 L 01/23/23 15:04 110 H 153/65 93 L 01/23/23 14:43 98 H 20 96 01/23/23 13:54 102 H 130/91 97 01/23/23 13:53 100 H 15 79 L 01/23/23 13:50 99 H 18 79 L 01/23/23 13:44 108 H 22 94 L 01/23/23 13:22 98.4 F 109 H 26 H 140/77 94 L Home Medications Medication Instructions Recorded Confirmed Last Taken Type Albuterol Common Canister 2 puff IH Q4-6HPRN PRN 01/23/23 01/23/23 Unknown History [Ventolin Common Canister] Ropinirole HCl 3 mg PO TID 01/23/23 01/23/23 Unknown History Current Medications Generic Name Dose Route Start Last Admin Trade Name Freq PRN Reason Stop Dose Admin Acetaminophen 650 mg 01/23/23 16:05 01/24/23 04:34 Acetaminophen 325 Mg Tablet PO 02/22/23 16:04 650 mg Q4H PRN PRN Administration PAIN AND/OR FEVER Albuterol/Ipratropium 3 ml 01/23/23 19:00 01/24/23 07:44 Ipratropium/Albuterol Sulfate 3 Ml Ampul.Neb IH 02/22/23 18:59 3 ml Q6HRT FABRICIO Administration Methylprednisolone Sodium 0 mg 01/24/23 00:00 01/24/23 05:50 Succinate 60 mg/ Sterile Water IV 02/23/23 00:00 60 mg 1 ml Q6HT FABRICIO Administration Azithromycin 500 mg in 250 mls @ 250 mls/hr 01/24/23 10:00 Zithromax 500 Mg/ 250 Ml Nacl Premix IV 02/23/23 09:59 Q24H10 FABRICIO Meropenem 1 gm/ Sodium 100 mls @ 200 mls/hr 01/24/23 06:00 01/24/23 05:49 Chloride IV 01/27/23 05:59 200 mls/hr Q8HT FABRICIO Administration Insulin Human Lispro 0 unit 01/23/23 22:55 01/24/23 04:19 Insulin Lispro 1 Unit SQ 02/22/23 22:54 12 unit UD PRN Administration HYPERGLYCEMIA Ondansetron HCl 4 mg 01/23/23 16:05 Ondansetron Hcl 4 Mg/2 Ml Vial IV 02/22/23 16:04 Q6H PRN PRN NAUSEA/VOMITING Pantoprazole Sodium 40 mg 01/24/23 10:00 Pantoprazole 40 Mg Vial IV 02/23/23 09:59 Q24H10 FABRICIO Ropinirole HCl 3 mg 01/23/23 22:00 01/23/23 21:41 Ropinirole Hcl 2 Mg Tablet PO 02/22/23 21:59 3 mg TID FABRICIO Administration Discontinued Medications Generic Name Dose Route Start Last Admin Trade Name Freq PRN Reason Stop Dose Admin Acetaminophen Confirm 01/24/23 04:33 Acetaminophen 325 Mg Tablet Administered 01/24/23 04:34 Dose 650 mg .ROUTE .STK-MED ONE Albuterol/Ipratropium 3 ml 01/23/23 13:39 01/23/23 14:37 Ipratropium/Albuterol Sulfate 3 Ml Ampul.Neb IH 01/23/23 13:40 3 ml STAT ONE Administration Albuterol/Ipratropium Confirm 01/23/23 14:29 Ipratropium/Albuterol Sulfate 3 Ml Ampul.Neb Administered 01/23/23 14:30 Dose 3 ml IH .STK-MED ONE Albuterol/Ipratropium Confirm 01/24/23 07:18 Ipratropium/Albuterol Sulfate 3 Ml Ampul.Neb Administered 01/24/23 07:19 Dose 3 ml IH .STK-MED ONE Methylprednisolone Sodium 0 mg 01/23/23 13:42 01/23/23 13:57 Succinate 120 mg/ Sterile IV 01/23/23 13:43 40 mg Water 3 ml STAT STA Administration Methylprednisolone Sodium 0 mg 01/23/23 18:00 01/23/23 18:52 Succinate 60 mg/ Sterile Water IV 02/22/23 17:59 60 mg 2 ml Q6HT FABRICIO Administration Azithromycin 500 mg in 250 mls @ 250 mls/hr 01/23/23 13:39 01/23/23 15:06 Zithromax 500 Mg/ 250 Ml Nacl Premix IV 01/23/23 14:38 Infused STAT STA Infusion Aztreonam 2 gm/ Sodium 100 mls @ 200 mls/hr 01/23/23 13:41 01/23/23 15:39 Chloride IV 01/23/23 14:10 200 mls/hr STAT ONE Administration Azithromycin Confirm 01/23/23 13:56 Zithromax 500 Mg/ 250 Ml Nacl Premix Administered 01/23/23 13:57 Dose 500 mg in 250 mls @ ud IV .STK-MED ONE Aztreonam 2 gm/ Sodium 100 mls @ 200 mls/hr 01/23/23 22:00 01/24/23 05:57 Chloride IV 01/26/23 21:59 Not Given Q8HT [facility] Sodium Chloride Confirm 01/24/23 05:37 Sodium Chloride 100ml Mini-Bag Plus Administered 01/24/23 05:38 Dose 100 mls @ ud IV .STK-MED ONE Insulin Human Lispro 0 unit 01/23/23 16:05 Insulin Lispro 1 Unit SQ 02/22/23 16:04 UD PRN HYPERGLYCEMIA Insulin Human Lispro 10 unit 01/23/23 22:58 01/23/23 23:02 Insulin Lispro 1 Unit SQ 01/23/23 22:59 10 unit STAT ONE Administration Meropenem Confirm 01/24/23 05:36 Meropenem 1 Gm Vial Administered 01/24/23 05:37 Dose 1 gm IV .STK-MED ONE Methylprednisolone Sodium Succinate Confirm 01/23/23 13:56 Methylprednisolone Sod Suc 40m 40 Mg/Ml Vial Administered 01/23/23 13:57 Dose 40 mg .ROUTE .STK-MED ONE Methylprednisolone Sodium Succinate Confirm 01/23/23 18:25 Methylprednis Sod Succ 125 Mg/2 Ml Vial Administered 01/23/23 18:26 Dose 125 mg .ROUTE .STK-MED ONE Methylprednisolone Sodium Succinate Confirm 01/23/23 23:09 Methylprednisolone Sod Suc 40m 40 Mg/Ml Vial Administered 01/23/23 23:10 Dose 40 mg .ROUTE .STK-MED ONE Methylprednisolone Sodium Succinate Confirm 01/23/23 23:10 Methylprednisolone Sod Suc 40m 40 Mg/Ml Vial Administered 01/23/23 23:11 Dose 40 mg .ROUTE .STK-MED ONE Methylprednisolone Sodium Succinate Confirm 01/24/23 05:38 Methylprednisolone Sod Suc 40m 40 Mg/Ml Vial Administered 01/24/23 05:39 Dose 40 mg .ROUTE .STK-MED ONE Methylprednisolone Sodium Succinate Confirm 01/24/23 05:38 Methylprednisolone Sod Suc 40m 40 Mg/Ml Vial Administered 01/24/23 05:39 Dose 40 mg .ROUTE .STK-MED ONE Non-Formulary Medication 1 each 01/23/23 20:10 01/23/23 21:31 Pharmacy Dosing Request MC 01/23/23 20:11 Not Given STAT ONE Sterile Water Confirm 01/23/23 13:55 Water For Injection,Sterile 10 Ml Vial Administered 01/23/23 13:56 Dose 10 ml IJ .STK-MED ONE Sterile Water Confirm 01/23/23 23:09 Water For Injection,Sterile 10 Ml Vial Administered 01/23/23 23:10 Dose 10 ml IJ .STK-MED ONE Sterile Water Confirm 01/23/23 23:10 Water For Injection,Sterile 10 Ml Vial Administered 01/23/23 23:11 Dose 10 ml IJ .STK-MED ONE Sterile Water Confirm 01/24/23 05:38 Water For Injection,Sterile 10 Ml Vial Administered 01/24/23 05:39 Dose 10 ml IJ .STK-MED ONE Sterile Water Confirm 01/24/23 05:38 Water For Injection,Sterile 10 Ml Vial Administered 01/24/23 05:39 Dose 10 ml IJ .STK-MED ONE Intake & Output (Last 24 hours) 01/21/23 01/22/23 01/23/23 01/24/23 11:59 11:59 11:59 11:59 Intake Total 3080 Output Total 1550 Balance 1530 Weight 104.4 kg Microbiology Results (Last 24 hours) 01/23/23 15:19 Clean Catch Midstream Urine Culture - Pending 01/23/23 14:15 Blood Blood Culture - Pending 01/23/23 14:30 Blood Blood Culture - Pending Laboratory Results (Last 24 hours) 01/24/23 01/24/23 01/24/23 06:58 05:20 05:20 WBC 9.8 RBC 3.92 L Hgb 10.5 L Hct 37.1 MCV 94.6 MCH 26.8 MCHC 28.3 L RDW 14.6 H Plt Count 265 MPV 10.1 Gran % 91.5 H Immature Gran % (Auto) 0.8 H Nucleat RBC Rel Count 0.0 Eos # (Auto) 0.01 Immature Gran # (Auto) 0.08 H Absolute Lymphs (auto) 0.65 L Absolute Monos (auto) 0.08 Absolute Nucleated RBC 0.00 Lymphocytes % 6.7 L Monocytes % 0.8 Eosinophils % 0.1 Basophils % 0.1 Absolute Granulocytes 8.94 H Basophils # 0.01 Sodium 139 Potassium 4.2 Chloride 93 L Carbon Dioxide 38 H Anion Gap 12.2 BUN 25 H Creatinine 0.61 Estimated GFR > 60.0 Glucose 399 H POC Glucometer 292 H Hemoglobin A1c Lactic Acid Calcium 8.9 Magnesium Total Bilirubin 0.20 AST 17 ALT 19 Alkaline Phosphatase 64 Troponin I NT-Pro-B Natriuret Pep Serum Total Protein 7.2 Albumin 3.3 L Prealbumin Procalcitonin Urine Color Urine Appearance Urine pH Ur Specific [place] Urine Protein Urine Glucose (UA) Urine Ketones Urine Blood Urine Nitrite Urine Bilirubin Urine Urobilinogen Ur Leukocyte Esterase U Hyaline Cast (Auto) Urine Microscopic RBC Urine Microscopic WBC Ur Epithelial Cells Urine Bacteria Urine Yeast (Budding) Urine Culture Reflexed Influenza Type A Ag Influenza Type B Ag RSV (PCR) SARS-CoV-2 (PCR) Slides for Path Review 01/24/23 01/23/23 01/23/23 04:12 22:00 22:00 WBC RBC Hgb Hct MCV MCH MCHC RDW Plt Count MPV Gran % Immature Gran % (Auto) Nucleat RBC Rel Count Eos # (Auto) Immature Gran # (Auto) Absolute Lymphs (auto) Absolute Monos (auto) Absolute Nucleated RBC Lymphocytes % Monocytes % Eosinophils % Basophils % Absolute Granulocytes Basophils # Sodium Potassium Chloride Carbon Dioxide Anion Gap BUN Creatinine Estimated GFR Glucose 542 H* POC Glucometer 339 H Hemoglobin A1c Lactic Acid Calcium Magnesium Total Bilirubin AST ALT Alkaline Phosphatase Troponin I < 0.012 NT-Pro-B Natriuret Pep Serum Total Protein Albumin Prealbumin Procalcitonin Urine Color Urine Appearance Urine pH Ur Specific [place] Urine Protein Urine Glucose (UA) Urine Ketones Urine Blood Urine Nitrite Urine Bilirubin Urine Urobilinogen Ur Leukocyte Esterase U Hyaline Cast (Auto) Urine Microscopic RBC Urine Microscopic WBC Ur Epithelial Cells Urine Bacteria Urine Yeast (Budding) Urine Culture Reflexed Influenza Type A Ag Influenza Type B Ag RSV (PCR) SARS-CoV-2 (PCR) Slides for Path Review 01/23/23 01/23/23 01/23/23 21:31 21:26 18:15 WBC RBC Hgb Hct MCV MCH MCHC RDW Plt Count MPV Gran % Immature Gran % (Auto) Nucleat RBC Rel Count Eos # (Auto) Immature Gran # (Auto) Absolute Lymphs (auto) Absolute Monos (auto) Absolute Nucleated RBC Lymphocytes % Monocytes % Eosinophils % Basophils % Absolute Granulocytes Basophils # Sodium Potassium Chloride Carbon Dioxide Anion Gap BUN Creatinine Estimated GFR Glucose POC Glucometer 502 H* 528 H* Hemoglobin A1c Lactic Acid Calcium Magnesium Total Bilirubin AST ALT Alkaline Phosphatase Troponin I < 0.012 NT-Pro-B Natriuret Pep Serum Total Protein Albumin Prealbumin Procalcitonin Urine Color Urine Appearance Urine pH Ur Specific [place] Urine Protein Urine Glucose (UA) Urine Ketones Urine Blood Urine Nitrite Urine Bilirubin Urine Urobilinogen Ur Leukocyte Esterase U Hyaline Cast (Auto) Urine Microscopic RBC Urine Microscopic WBC Ur Epithelial Cells Urine Bacteria Urine Yeast (Budding) Urine Culture Reflexed Influenza Type A Ag Influenza Type B Ag RSV (PCR) SARS-CoV-2 (PCR) Slides for Path Review 01/23/23 01/23/23 01/23/23 18:00 17:18 15:19 WBC RBC Hgb Hct MCV MCH MCHC RDW Plt Count MPV Gran % Immature Gran % (Auto) Nucleat RBC Rel Count Eos # (Auto) Immature Gran # (Auto) Absolute Lymphs (auto) Absolute Monos (auto) Absolute Nucleated RBC Lymphocytes % Monocytes % Eosinophils % Basophils % Absolute Granulocytes Basophils # Sodium Potassium Chloride Carbon Dioxide Anion Gap BUN Creatinine Estimated GFR Glucose POC Glucometer 288 H Hemoglobin A1c Lactic Acid Calcium Magnesium Total Bilirubin AST ALT Alkaline Phosphatase Troponin I NT-Pro-B Natriuret Pep Serum Total Protein Albumin Prealbumin 18.53 Procalcitonin Urine Color Yellow Urine Appearance Clear Urine pH 6.0 Ur Specific [place] 1.020 Urine Protein 300 A Urine Glucose (UA) 500 A Urine Ketones Negative Urine Blood Negative Urine Nitrite Negative Urine Bilirubin Negative Urine Urobilinogen 0.2 Ur Leukocyte Esterase Trace A U Hyaline Cast (Auto) NONE SEEN Urine Microscopic RBC 0-2 Urine Microscopic WBC 21-50 A Ur Epithelial Cells Few Urine Bacteria Few A Urine Yeast (Budding) Many A Urine Culture Reflexed YES Influenza Type A Ag Influenza Type B Ag RSV (PCR) SARS-CoV-2 (PCR) Slides for Path Review 01/23/23 01/23/23 01/23/23 15:00 14:35 14:15 WBC RBC Hgb Hct MCV MCH MCHC RDW Plt Count MPV Gran % Immature Gran % (Auto) Nucleat RBC Rel Count Eos # (Auto) Immature Gran # (Auto) Absolute Lymphs (auto) Absolute Monos (auto) Absolute Nucleated RBC Lymphocytes % Monocytes % Eosinophils % Basophils % Absolute Granulocytes Basophils # Sodium Potassium Chloride Carbon Dioxide Anion Gap BUN Creatinine Estimated GFR Glucose POC Glucometer Hemoglobin A1c Lactic Acid 1.3 Calcium Magnesium Total Bilirubin AST ALT Alkaline Phosphatase Troponin I NT-Pro-B Natriuret Pep 287 Serum Total Protein Albumin Prealbumin Procalcitonin 0.060 Urine Color Urine Appearance Urine pH Ur Specific [place] Urine Protein Urine Glucose (UA) Urine Ketones Urine Blood Urine Nitrite Urine Bilirubin Urine Urobilinogen Ur Leukocyte Esterase U Hyaline Cast (Auto) Urine Microscopic RBC Urine Microscopic WBC Ur Epithelial Cells Urine Bacteria Urine Yeast (Budding) Urine Culture Reflexed Influenza Type A Ag NEGATIVE Influenza Type B Ag NEGATIVE RSV (PCR) NEGATIVE SARS-CoV-2 (PCR) NEGATIVE Slides for Path Review 01/23/23 01/23/23 01/23/23 14:15 14:15 14:15 WBC 8.6 RBC 3.90 L Hgb 10.3 L Hct 37.6 MCV 96.4 MCH 26.4 MCHC 27.4 L RDW 14.5 H Plt Count 273 MPV 9.9 Gran % 73.2 H Immature Gran % (Auto) 0.9 H Nucleat RBC Rel Count 0.0 Eos # (Auto) 0.13 Immature Gran # (Auto) 0.08 H Absolute Lymphs (auto) 1.49 Absolute Monos (auto) 0.58 Absolute Nucleated RBC 0.00 Lymphocytes % 17.4 L Monocytes % 6.8 Eosinophils % 1.5 Basophils % 0.2 Absolute Granulocytes 6.28 Basophils # 0.02 Sodium 142 Potassium 4.6 Chloride 92 L Carbon Dioxide 45 H Anion Gap 9.6 BUN 24 H Creatinine 0.63 Estimated GFR > 60.0 Glucose 270 H POC Glucometer Hemoglobin A1c Lactic Acid Calcium 9.2 Magnesium 2.1 Total Bilirubin 0.30 AST 16 ALT 17 Alkaline Phosphatase 69 Troponin I < 0.012 NT-Pro-B Natriuret Pep Serum Total Protein 7.8 Albumin 3.5 Prealbumin Procalcitonin Urine Color Urine Appearance Urine pH Ur Specific [place] Urine Protein Urine Glucose (UA) Urine Ketones Urine Blood Urine Nitrite Urine Bilirubin Urine Urobilinogen Ur Leukocyte Esterase U Hyaline Cast (Auto) Urine Microscopic RBC Urine Microscopic WBC Ur Epithelial Cells Urine Bacteria Urine Yeast (Budding) Urine Culture Reflexed Influenza Type A Ag Influenza Type B Ag RSV (PCR) SARS-CoV-2 (PCR) Slides for Path Review YES 01/23/23 13:39 WBC RBC Hgb Hct MCV MCH MCHC RDW Plt Count MPV Gran % Immature Gran % (Auto) Nucleat RBC Rel Count Eos # (Auto) Immature Gran # (Auto) Absolute Lymphs (auto) Absolute Monos (auto) Absolute Nucleated RBC Lymphocytes % Monocytes % Eosinophils % Basophils % Absolute Granulocytes Basophils # Sodium Potassium Chloride Carbon Dioxide Anion Gap BUN Creatinine Estimated GFR Glucose POC Glucometer Hemoglobin A1c 10.53 H Lactic Acid Calcium Magnesium Total Bilirubin AST ALT Alkaline Phosphatase Troponin I NT-Pro-B Natriuret Pep Serum Total Protein Albumin Prealbumin Procalcitonin Urine Color Urine Appearance Urine pH Ur Specific [place] Urine Protein Urine Glucose (UA) Urine Ketones Urine Blood Urine Nitrite Urine Bilirubin Urine Urobilinogen Ur Leukocyte Esterase U Hyaline Cast (Auto) Urine Microscopic RBC Urine Microscopic WBC Ur Epithelial Cells Urine Bacteria Urine Yeast (Budding) Urine Culture Reflexed Influenza Type A Ag Influenza Type B Ag RSV (PCR) SARS-CoV-2 (PCR) Slides for Path Review Orders (Last 24 hours) Category Date Time Status Bedrest ROUTINE Activity 01/23/23 16:05 Active Up With Assistance ROUTINE Activity 01/23/23 16:05 Active Call Admit Doctor for Orders ON ADMISSION Care 01/23/23 16:05 Completed Manager Asset STAT Care 01/23/23 13:40 Completed Code Status Order ROUTINE Care 01/23/23 16:05 Active EKG-ER Only STAT Care 01/23/23 13:39 Completed Fall Protocol Q1H Care 01/23/23 16:05 Active IV Care Q6H Care 01/23/23 16:05 Active Oxygen-ED Only Nasal Cannula 5 lpm Care 01/23/23 13:39 Completed POCT Glucose Check ACHS Care 01/23/23 16:[address] in Observation ROUTINE Care 01/23/23 16:05 Active Ye Hose, Apply ROUTINE Care 01/23/23 16:05 Active Telemetry q6h Care 01/23/23 16:02 Active Weight,Daily 0600 Care 01/23/23 16:05 Active Cardio-Pulmonary Rehab .as ordered Cons 01/23/23 17:34 Active [employer] Pay Clerk/Discharge Plan ROUTINE Cons 01/23/23 17:34 Active Consistent Carbohydrate Diet 1800 Calorie Diet 01/23/23 Dinner Active Nutritional Admission Screen ONCE Diet 01/23/23 17:34 Active CHEST 1 VIEW (PORTABLE) Stat Exams 01/23/23 13:39 Completed BLOOD CULTURE Stat Lab 01/23/23 14:15 Received CBC W DIFF AM.LAB Lab 01/24/23 05:20 Completed CBC W DIFF Stat Lab 01/23/23 14:15 Completed CMP AM.LAB Lab 01/24/23 05:20 Completed CMP Stat Lab 01/23/23 14:15 Completed COVID/FLU/RSV Panel Stat Lab 01/23/23 14:15 Completed CULTURE,URINE Stat Lab 01/23/23 15:19 Received Glucose Stat Lab 01/23/23 22:00 Completed HEMOGLOBIN A1C Routine Lab 01/23/23 13:39 Completed Lactic Acid Stat Lab 01/23/23 14:35 Completed MAGNESIUM Stat Lab 01/23/23 14:15 Completed NT PRO BNPII Stat Lab 01/23/23 15:00 Completed POCT GLUCOSE Stat Lab 01/23/23 17:18 Completed POCT GLUCOSE Stat Lab 01/23/23 21:26 Completed POCT GLUCOSE Stat Lab 01/23/23 21:31 Completed POCT GLUCOSE Stat Lab 01/24/23 04:12 Completed POCT GLUCOSE Stat Lab 01/24/23 06:58 Completed PREALBUMIN Routine Lab 01/23/23 18:00 Completed PROCALCITONIN Stat Lab 01/23/23 15:00 Completed TROPONIN Q4H Lab 01/23/23 14:15 Completed TROPONIN Q4H Lab 01/23/23 18:15 Completed TROPONIN Q4H Lab 01/23/23 22:00 Completed UA W/RFX UR CULTURE Stat Lab 01/23/23 15:19 Completed Acetaminophen 325 mg [Tylenol 325 mg] Med 01/24/23 04:33 Discontinued 650 mg .ROUTE .STK-MED ONE Acetaminophen 325 mg [Tylenol 325 mg] Med 01/23/23 16:05 Active 650 mg PO Q4H PRN PRN Albuterol/Ipratropium 3ml Neb* [DUONEB 0.5-3 MG/3 ml Med 01/23/23 14:29 Discontinued Neb] 3 ml IH .STK-MED ONE Albuterol/Ipratropium 3ml Neb* [DUONEB 0.5-3 MG/3 ml Med 01/24/23 07:18 Discontinued Neb] 3 ml IH .STK-MED ONE Albuterol/Ipratropium 3ml Neb* [DUONEB 0.5-3 MG/3 ml Med 01/23/23 19:00 Active Neb] 3 ml IH Q6HRT Albuterol/Ipratropium 3ml Neb* [DUONEB 0.5-3 MG/3 ml Med 01/23/23 13:39 Discontinued Neb] 3 ml IH STAT ONE Azithromycin 500 mg/250 ml [Zithromax 500 MG/ 250 ML Med 01/24/23 10:00 Active NaCl Premix] 500 mg in 250 ml IV Q24H10 Azithromycin 500 mg/250 ml [Zithromax 500 MG/ 250 ML Med 01/23/23 13:39 Discontinued NaCl Premix] 500 mg in 250 ml IV STAT Azithromycin 500 mg/250 ml [Zithromax 500 MG/ 250 ML Med 01/23/23 13:56 Discontinued NaCl Premix] 500 mg in 250 ml IV UD Aztreonam 1 gm [Azactam 1 gm] 2 gm Med 01/23/23 22:00 Discontinued NaCl 0.9% [Sodium Chloride 0.9%] 100 ml IV Q8HT Aztreonam 1 gm [Azactam 1 gm] 2 gm Med 01/23/23 13:41 Discontinued NaCl 0.9% [Sodium Chloride 0.9%] 100 ml IV STAT Insulin Lispro [Humalog] Med 01/23/23 22:58 Discontinued 10 unit SQ STAT ONE Insulin Lispro [Humalog] Med 01/23/23 16:05 Discontinued See Dose Instructions SQ UD PRN Insulin Lispro [Humalog] Med 01/23/23 22:55 Active See Dose Instructions SQ UD PRN Meropenem [Merrem] Med 01/24/23 05:36 Discontinued 1 gm IV .STK-MED ONE Meropenem [Merrem] 1 gm Med 01/24/23 06:00 Active NaCl 0.9% 100 ml Mini-Bag Plus [Sodium Chloride 100ML MINI-BAG PLUS] 100 ml IV Q8HT Methylprednis Sod Succ 125 mg* [solu-MEDROL] Med 01/23/23 18:25 Discontinued 125 mg .ROUTE .STK-MED ONE Methylprednis Sod Succ 125 mg* [solu-MEDROL] 60 mg Med 01/23/23 18:00 Discontinued Water For Injection,Sterile [Sterile H2O 10 ml] 2 ml IV Q6HT Methylprednisolone Sod Suc 40M [solu-MEDROL] Med 01/23/23 13:56 Discontinued 40 mg .ROUTE .STK-MED ONE Methylprednisolone Sod Suc 40M [solu-MEDROL] Med 01/23/23 23:09 Discontinued 40 mg .ROUTE .STK-MED ONE Methylprednisolone Sod Suc 40M [solu-MEDROL] Med 01/23/23 23:10 Discontinued 40 mg .ROUTE .STK-MED ONE Methylprednisolone Sod Suc 40M [solu-MEDROL] Med 01/24/23 05:38 Discontinued 40 mg .ROUTE .STK-MED ONE Methylprednisolone Sod Suc 40M [solu-MEDROL] Med 01/24/23 05:38 Discontinued 40 mg .ROUTE .STK-MED ONE Methylprednisolone Sod Suc 40M [solu-MEDROL] 120 mg Med 01/23/23 13:42 Discontinued Water For Injection,Sterile [Sterile H2O 10 ml] 3 ml IV STAT Methylprednisolone Sod Suc 40M [solu-MEDROL] 60 mg Med 01/24/23 00:00 Active Water For Injection,Sterile [Sterile H2O 10 ml] 1 ml IV Q6HT NaCl 0.9% 100 ml Mini-Bag Plus [Sodium Chloride 100ML Med 01/24/23 05:37 Discontinued MINI-BAG PLUS] 100 ml IV UD Ondansetron HCl 4 mg/2 ml [Zofran 4 MG/2 ML VIAL] Med 01/23/23 16:05 Active 4 mg IV Q6H PRN PRN Pantoprazole 40 mg [Protonix 40 mg IV] Med 01/24/23 10:00 Active 40 mg IV Q24H10 Pharmacy Dosing Request Med 01/23/23 20:10 Discontinued 1 each MC STAT ONE Ropinirole 2Mg [Requip 2Mg Tab] Med 01/23/23 22:00 Active 3 mg PO TID Water For Injection,Sterile [Sterile H2O 10 ml] Med 01/23/23 13:55 Discontinued 10 ml IJ .STK-MED ONE Water For Injection,Sterile [Sterile H2O 10 ml] Med 01/23/23 23:09 Discontinued 10 ml IJ .STK-MED ONE Water For Injection,Sterile [Sterile H2O 10 ml] Med 01/23/23 23:10 Discontinued 10 ml IJ .STK-MED ONE Water For Injection,Sterile [Sterile H2O 10 ml] Med 01/24/23 05:38 Discontinued 10 ml IJ .STK-MED ONE Water For Injection,Sterile [Sterile H2O 10 ml] Med 01/24/23 05:38 Discontinued 10 ml IJ .STK-MED ONE OT Screen per Nursing Assess ONCE OT 01/23/23 17:34 Active PT Eval & Treat (MD Order) ONCE PT 01/23/23 17:11 Active PT Screen per Nursing Assess ONCE PT 01/23/23 17:34 Active Oxygen Nasal Cannula 5 lpm RT 01/23/23 16:05 Active Pulse Oximetry .continuos RT 01/23/23 17:59 Active RT Screen per Nursing Assess ONCE RT 01/23/23 17:34 Completed Smoking Cessation Education ONCE RT 01/23/23 17:34 Completed Patient Care Notes (Last 24 hours) 01/23/23 23:00 (created 01/24/23 00:34) Physician Notice by Helga Morales Dr. notified regarding POCT 502mg/dL and lab glucose 542mg/dL. New order's noted. Patient asymptomatic hypoglycemia. Initialized on 01/24/23 00:34 - END OF NOTE Code(s): J96.21 - ACUTE AND CHRONIC RESPIRATORY FAILURE WITH HYPOXIA (2) Acute exacerbation of chronic obstructive pulmonary disease (COPD) Current Visit: Yes Status: Acute Code(s): J44.1 - CHRONIC OBSTRUCTIVE PULMONARY DISEASE W (ACUTE) EXACERBATION (3) Bilateral lower leg cellulitis Current Visit: No Status: Acute Code(s): L03.116 - CELLULITIS OF LEFT LOWER LIMB; L03.115 - CELLULITIS OF RIGHT LOWER LIMB
[2023-01-24 08:59] LABS: Slide Review 1 YES
[2023-01-24] MEDS ORDERED: PROTONIX 40 MG IV IV SCH (10:00)
[2023-01-24] MEDS: REQUIP 2MG TAB PO SCH ×3 (10:10→20:59)
[2023-01-24] MEDS: Klor Con PO SCH (10:10)
[2023-01-24] MEDS: Cozaar 50 MG PO SCH ×2 (10:10→20:58)
[2023-01-24] MEDS: NORVASC 5 MG PO SCH ×2 (10:10→20:59)
[2023-01-24] MEDS: Zithromax 500 MG/ 250 ML NaCl Premix 500 MG/250 ML IVPB IV SCH (10:11)
[2023-01-24] MEDS: Protonix 40MG Tablet PO SCH (10:11)
[2023-01-24] MEDS: Lasix 40 MG PO SCH (10:11)
[2023-01-24] MEDS: JARDIANCE PO SCH (10:56)
[2023-01-24] MEDS: Glucophage 500 MG PO SCH (17:00)
[2023-01-25] MEDS: DUONEB 0.5-3 MG/3 ml Neb IH SCH ×4 (01:30→17:34)
[2023-01-25] MEDS: Merrem 1 GM in Sodium Chloride 100ML MINI-BAG PLUS 100 ML IV SCH ×3 (05:21→21:20)
[2023-01-25] MEDS: solu-MEDROL 60 MG, Sterile H2O 10 ml 1 ML IV SCH ×6 (05:28→17:18)
[2023-01-25] MEDS: HUMALOG SQ PRN ×4 (08:09→21:35)
[2023-01-25] MEDS: Glucophage 500 MG PO SCH ×2 (08:10→17:18)
[2023-01-25] MEDS: TYLENOL 325 MG PO PRN (09:40)
[2023-01-25] MEDS: Cozaar 50 MG PO SCH ×2 (09:41→21:14)
[2023-01-25] MEDS: Lasix 40 MG PO SCH (09:41)
[2023-01-25] MEDS: Protonix 40MG Tablet PO SCH (09:41)
[2023-01-25] MEDS: NORVASC 5 MG PO SCH ×2 (09:41→21:14)
[2023-01-25] MEDS: Klor Con PO SCH (09:41)
[2023-01-25] MEDS: REQUIP 2MG TAB PO SCH ×3 (09:41→21:15)
[2023-01-25] MEDS: JARDIANCE PO SCH (09:42)
[2023-01-25] MEDS: Zithromax 500 MG/ 250 ML NaCl Premix 500 MG/250 ML IVPB IV SCH (11:09)
[2023-01-25] MEDS ORDERED: solu-MEDROL ONE (11:35)
[2023-01-25] MEDS ORDERED: ULTRAM 50 MG PO PRN (14:09)
--- NOTE | 2023-01-25 14:20 | PCM.NOTE ---
Date and Time: 01/25/231417 Subjective Assessment: Patient c/o BLE pain when standing pain is "12/10" but if lying still is 0/10. States some cough and sob,no chest pain. Appetite is good. Objective Exam Wound Assessment: Skin/Wound Assessment Wound/Incision Assessment Start: 01/23/23 17:34 Text: Status: Active Freq: Q6H Protocol: Document 01/25/23 08:00 (Rec: 01/25/23 09:54 [id number]) Wound/Incision Assessment Buttock Wound Assessment Shift Assessment Wound Type Reddness, scabs Wound Stage Non Pressure Wound Drainage Amount None General Appearance Open to air,Reddened Surrounding Tissue Dark Red,Blanched/Dull OBJECTIVE DATA Vital Signs: Vital Signs - 24 hr Temp Pulse Resp BP Pulse Ox 01/25/23 12:00 97.9 F 93 H 16 155/67 94 L 01/25/23 11:18 84 20 97 01/25/23 07:42 97.6 F 96 H 16 157/69 95 01/25/23 05:39 79 20 95 01/25/23 04:00 97.7 F 94 H 36 H 144/72 94 L 01/25/23 01:31 96 H 24 95 01/25/23 00:00 97.7 F 94 H 25 H 165/70 95 01/24/23 20:00 97.5 F 103 H 22 176/76 93 L 01/24/23 19:54 103 H 20 95 01/24/23 16:30 85 L 01/24/23 16:00 97.6 F 100 H 33 H 176/76 92 L Pain Assessment - Last Documented Pain Intensity 10 Pain Scale Used [facility] Intake and Output: Intake & Output 01/23/23 01/24/23 01/25/23 01/26/23 11:59 11:59 11:59 11:59 Intake Total 3560 2900 880 Output Total 1550 2830 1350 Balance 2009 70 -470 Weight 104.4 kg 104 kg Lab Results: Lab Results-Last 24 Hours 01/24/23 01/24/23 01/25/23 Range/Units 15:19 21:29 07:19 POC Glucometer 311 H 335 H 336 H (74 to 106) mg/dL 01/25/23 Range/Units 11:48 POC Glucometer 304 H (74 to 106) mg/dL Radiology Exams: Radiology Procedures Category Date Time Status CHEST 1 VIEW (PORTABLE) Stat Exams 01/23/23 13:39 Completed
[2023-01-25] MEDS: PERCOCET TABLET 5/325MG PO PRN (15:17)
--- NOTE | 2023-01-25 16:51 | PCM.CONS ---
Podiatry HPI - Consult Consulting Provider: LULA BUTLER DPM - HPI History of Present Illness: is a 67 year old female who has a hx of hypertension, hyperlipidemia, chronic respiratory failure secondary to COPD on 5 L oxygen, diabetes mellitus, bilateral lower extremity chronic swelling/stasis presented with increasing shortness of breath since morning of 01/23. She gained admission for cellulitis to the bilateral lower extremity drainage. Medications & Allergies Home Medications: Home Medication List Albuterol Common Canister [Ventolin Common Canister] 2 puff IH Q4-6HPRN PRN 01/23/23 [History Confirmed 01/23/23] Ropinirole HCl 3 mg PO TID 01/23/23 [History Confirmed 01/23/23] Allergies/Adverse Reactions: Allergies Allergy/AdvReac Type Severity Reaction Status Date / Time codeine Allergy Intermediate rash, Verified 11/27/22 16:46 itching cefaclor [From Ceclor] Allergy Mild Rash Verified 11/27/22 16:46 Penicillins Allergy Mild Swelling Verified 11/27/22 16:46 bacitracin AdvReac Mild Itching Verified 11/27/22 16:46 [From Neosporin ([id number])] bacitracin zinc AdvReac Mild Itching Verified 11/27/22 16:46 [From Neosporin ([id number])] levofloxacin [From Levaquin] AdvReac Mild itch Verified 11/27/22 16:46 neomycin sulfate AdvReac Mild itch Verified 11/27/22 16:46 [From Neosporin ([id number])] polymyxin B AdvReac Mild Itching Verified 11/27/22 16:46 [From Neosporin ([id number])] - Past Medical History Past Medical History: Yes Neurological History: No Pertinent History ENT History: No Pertinent History Cardiac History: Congestive Heart Failure, Hypertension, Peripheral Vascular Disease Respiratory History: COPD, Emphysema Endocrine Medical History: Diabetes Type II Musculoskelatal History: Arthritis, Fibromyalgia GI Medical History: No Pertinent History History: Other Pyscho-Social History: No Pertinent History Reproductive Disorders: No Pertinent History Comment: Stress Incontinence - Female History Are you now?: No - Past Surgical History Past Surgical History: Yes Neuro Surgical History: No Pertinent History Cardiac History: No Pertinent History Respiratory Surgery: No Pertinent History GI Surgical History: Cholecystectomy Genitourinary Surgical Hx: No Pertinent History Musculskeletal Surgical Hx: No Pertinent History Female Surgical History: Tubal Ligation - Social History Smoking Status: Current every day smoker How long have you smoked: 50 years Exposure to second hand smoke: Yes Alcohol: None Drug Use: none Significant Family History: no pertinent family hx Physical Exam - General General Appearance: no apparent distress - Vascular Peripheral Pulses: Posterior tibialis: 2+, Dorsalis-Pedis: 1+ Capillary Refill Time: Delayed (ab) Hair Growth: absent Varicosities: Positive Edema: Pitting Edema Degree: 2+ Skin: Supple, not atrophic Skin Temperature: Warm to touch - Narrative Narrative Physical Exam: Podiatry Physical Exam Results - Labs Lab/Micro Results: Lab Results-Last 24 Hours 01/24/23 01/25/23 01/25/23 Range/Units 21:29 07:19 11:48 POC Glucometer 335 H 336 H 304 H (74 to 106) mg/dL 01/25/23 Range/Units 16:02 POC Glucometer 265 H (74 to 106) mg/dL Microbiology 01/23/23 14:15 Blood Culture - Preliminary Blood NO GROWTH TO DATE 01/23/23 14:30 Blood Culture - Preliminary Blood NO GROWTH TO DATE 01/23/23 15:19 Urine Culture - Final Clean Catch Midstream MIXED STEVE; 3 OR MORE TYPES. NO PREDOMINANT ORGANISM. NO FURTHER WORKUP. PLEASE RESUBMIT IF CLINICALLY INDICATED. Accuchecks Date 01/25/23 Date 01/25/23 Time 16:11 Time 12:01 - Radiology Impressions Radiology Exams & Impressions: Radiology Procedures Category Date Time Status VENOUS BILATERAL EXTREMITY [US] Urgent Exams 01/25/23 16:23 Ordered Assessment/Plan (1) Acute and chronic respiratory failure with hypoxia Current Visit: Yes Status: Acute Code(s): J96.21 - ACUTE AND CHRONIC RESPIRATORY FAILURE WITH HYPOXIA (2) Acute exacerbation of chronic obstructive pulmonary disease (COPD) Current Visit: Yes Status: Acute Code(s): J44.1 - CHRONIC OBSTRUCTIVE PULMONARY DISEASE W (ACUTE) EXACERBATION (3) Cellulitis of both lower extremities Current Visit: Yes Status: Acute Assessment & Plan: Initial patient examination evaluation. Patient's clinical examination is consistent with chronic venous insufficiency with ulcerations to the bilateral lower extremity. Patient likely does have some underlying cellulitis Will order venous Dopplers to assess for bilateral blood clots The patient is a good candidate will proceed with multilayer compression dressings in order to reduce cellulitis with compression therapy and reducing venous insufficiency and localized edema. Will follow up tomorrow where dressings will be placed if Doppler is negative Patient encouraged to elevate extremities at all times. We will follow with you Code(s): L03.115 - CELLULITIS OF RIGHT LOWER LIMB; L03.116 - CELLULITIS OF LEFT LOWER LIMB (4) Bilateral lower leg cellulitis Current Visit: No Status: Acute Code(s): L03.116 - CELLULITIS OF LEFT LOWER LIMB; L03.115 - CELLULITIS OF RIGHT LOWER LIMB (5) Diabetic ulcer of lower leg Current Visit: No Status: Acute Code(s): E11.622 - TYPE 2 DIABETES MELLITUS WITH OTHER SKIN ULCER; L97.909 - NON-PRS CHRONIC ULC UNSP PRT OF UNSP LOW LEG W UNSP SEVERITY (6) Swelling of lower leg Current Visit: No Status: Acute Code(s): M79.89 - OTHER SPECIFIED SOFT TISSUE DISORDERS (7) Type 2 diabetes mellitus Current Visit: No Status: Chronic Qualifiers: Diabetes mellitus moth exterminator insulin use: without moth exterminator use (8) CHF exacerbation Current Visit: No Status: Resolved Qualifiers: Heart failure type: combined systolic and diastolic Qualified Code(s): I50.43 - Acute on chronic combined systolic (congestive) and diastolic (congestive) heart failure Code(s): I50.9 - HEART FAILURE, UNSPECIFIED (9) COPD exacerbation Current Visit: No Status: Resolved Code(s): J44.1 - CHRONIC OBSTRUCTIVE PULMONARY DISEASE W (ACUTE) EXACERBATION
--- NOTE | 2023-01-25 18:14 | XRAY ---
Indication: Extreme cellulitis. Two-dimensional sonogram and color Doppler imaging of the major venous vessels of the left and right leg performed. Comparison: June 28, 2022 No thrombus seen in the examined deep venous vessels of the left and right leg including greater saphenous vein. Veins demonstrate normal compressibility. Venous waveforms are normal with and without augmentation. Impression: Left and right legs continue to be negative for DVT.
[2023-01-26] MEDS: solu-MEDROL 60 MG, Sterile H2O 10 ml 1 ML IV SCH ×8 (00:12→20:14)
[2023-01-26] MEDS: DUONEB 0.5-3 MG/3 ml Neb IH SCH ×4 (00:14→16:57)
[2023-01-26] MEDS: TYLENOL 325 MG PO PRN (00:29)
[2023-01-26] MEDS: PERCOCET TABLET 5/325MG PO PRN (04:09)
[2023-01-26] MEDS ORDERED: solu-MEDROL ONE ×2 (04:38→04:39)
[2023-01-26] MEDS: Merrem 1 GM in Sodium Chloride 100ML MINI-BAG PLUS 100 ML IV SCH ×3 (05:27→22:01)
--- NOTE | 2023-01-26 07:30 | PCM.NOTE ---
Date and Time: 01/26/23726 Subjective Assessment: Patient seen at bedside this AM. No new complaints. Physical Exam - Narrative Narrative Physical Exam: Podiatry Physical Exam OBJECTIVE DATA Vital Signs: Vital Signs - 24 hr Temp Pulse Resp BP Pulse Ox 01/26/23 07:18 97.1 F 75 24 151/67 91 L 01/26/23 05:34 86 20 93 L 01/26/23 04:00 97.3 F 87 28 H 170/73 94 L 01/26/23 00:15 85 18 92 L 01/25/23 23:17 97.7 F 97 H 18 186/77 93 L 01/25/23 19:16 97.1 F 96 H 18 138/64 93 L 01/25/23 17:57 94 H 18 90 L 01/25/23 15:53 97.9 F 89 16 144/64 94 L 01/25/23 12:00 97.9 F 93 H 16 155/67 94 L 01/25/23 11:18 84 20 97 01/25/23 07:42 97.6 F 96 H 16 157/69 95 Pain Assessment - Last Documented Pain Intensity 6 Pain [facility] Intake and Output: Intake & Output 01/23/23 01/24/23 01/25/23 01/26/23 11:59 11:59 11:59 11:59 Intake Total 3560 2900 1960 Output Total 1550 2830 3550 Balance 2010 70 -1590 Weight 104.4 kg 104 kg 104.7 kg Lab Results: Lab Results-Last 24 Hours 01/25/23 01/25/23 01/25/23 Range/Units 11:48 16:02 21:27 POC Glucometer 304 H 265 H 385 H (74 to 106) mg/dL Troponin I (0.000-0.034) ng/mL 01/26/23 01/26/23 Range/Units 01:00 06:47 POC Glucometer 256 H (74 to 106) mg/dL Troponin I 0.016 (0.000-0.034) ng/mL Radiology Exams: Radiology Procedures Category Date Time Status VENOUS BILATERAL EXTREMITY [US] Urgent Exams 01/25/23 17:17 Completed Assessment/Plan (1) Acute and chronic respiratory failure with hypoxia Current Visit: Yes Status: Acute Code(s): J96.21 - ACUTE AND CHRONIC RESPIRATORY FAILURE WITH HYPOXIA (2) Acute exacerbation of chronic obstructive pulmonary disease (COPD) Current Visit: Yes Status: Acute Code(s): J44.1 - CHRONIC OBSTRUCTIVE PULMONARY DISEASE W (ACUTE) EXACERBATION (3) Cellulitis of both lower extremities Current Visit: Yes Status: Acute Assessment & Plan: Patient examination and evaluation Venous dopplers demonstrating widely patent veins with no indications of occlusion agree with radiologist read. Will proceed with dressings to the bilateral lower extremity for compression for venous insufficiency ulcerations. Unna boots applied to the bilateral lower extremity with idoine adaptic unna boot 4x4 and coban. This will be changed and reassessment will be made. Will follow with you. Code(s): L03.115 - CELLULITIS OF RIGHT LOWER LIMB; L03.116 - CELLULITIS OF LEFT LOWER LIMB (4) Bilateral lower leg cellulitis Current Visit: No Status: Acute Code(s): L03.116 - CELLULITIS OF LEFT LOWER LIMB; L03.115 - CELLULITIS OF RIGHT LOWER LIMB (5) Diabetic ulcer of lower leg Current Visit: No Status: Acute Code(s): E11.622 - TYPE 2 DIABETES MELLITUS WITH OTHER SKIN ULCER; L97.909 - NON-PRS CHRONIC ULC UNSP PRT OF UNSP LOW LEG W UNSP SEVERITY (6) Swelling of lower leg Current Visit: No Status: Acute Code(s): M79.89 - OTHER SPECIFIED SOFT TISSUE DISORDERS (7) Type 2 diabetes mellitus Current Visit: No Status: Chronic Qualifiers: Diabetes mellitus group home insulin use: without group home use (8) CHF exacerbation Current Visit: No Status: Resolved Qualifiers: Heart failure type: combined systolic and diastolic Qualified Code(s): I50.43 - Acute on chronic combined systolic (congestive) and diastolic (congestive) heart failure Code(s): I50.9 - HEART FAILURE, UNSPECIFIED (9) COPD exacerbation Current Visit: No Status: Resolved Code(s): J44.1 - CHRONIC OBSTRUCTIVE PULMONARY DISEASE W (ACUTE) EXACERBATION
[2023-01-26] MEDS: Glucophage 500 MG PO SCH ×2 (08:50→16:57)
[2023-01-26] MEDS: JARDIANCE PO SCH (08:51)
[2023-01-26] MEDS: REQUIP 2MG TAB PO SCH ×3 (08:51→22:01)
[2023-01-26] MEDS: Protonix 40MG Tablet PO SCH (08:51)
[2023-01-26] MEDS: Cozaar 50 MG PO SCH ×2 (08:52→22:01)
[2023-01-26] MEDS: HUMALOG SQ PRN ×3 (08:53→17:48)
[2023-01-26] MEDS: Amaryl 2 MG PO SCH (10:33)
[2023-01-26] MEDS: Klor Con PO SCH (10:33)
[2023-01-26] MEDS: Lasix 40 MG PO SCH (10:34)
[2023-01-26] MEDS: Zithromax 500 MG/ 250 ML NaCl Premix 500 MG/250 ML IVPB IV SCH (11:39)
[2023-01-26] MEDS: NORVASC 5 MG PO SCH ×2 (11:40→22:01)
[2023-01-26 15:47] LABS: Hemoglobin 11.2 g/dL (12.0-16.0); Mean Cell Volume 93.5 fL (78-100); Mean Corpuscular Hemoglobin 26.9 pg (26-32); Mean Corpuscular Hgb Concent. 28.7 g/dL (32-36); Platelet Count 296 x10^3/uL (150-450); Red Blood Count 4.17 x10^6/uL (4.1-5.4); Red Cell Distribution Width 15.1 % (11.5-14.0)
[2023-01-26 16:13] LABS: ALBUMIN 3.5 g/dL (3.5-5.0); ALKALINE PHOSPHATASE 67 U/L (38-126); BLOOD UREA NITROGEN 38 mg/dL (7-17); CHLORIDE 92 mmol/L (98-107); Calcium 8.6 mg/dL (8.4-10.2); Creatinine 1 0.76 mg/dL (0.52-1.04); EST GLOMERULAR FILTRATION RATE > 60.0 ML/MIN; Glucose 306 mg/dL (74-106); Potassium 4.3 mmol/L (3.5-5.1); SGOT/AST 61 U/L (14-36); SGPT/ALT 60 U/L (0-35); SODIUM 139 mmol/L (137-145); Total Protein 7.3 g/dL (6.3-8.2)
[2023-01-26 16:20] LABS: Carbon Dioxide 39 mmol/L (22-30)
[2023-01-26 16:21] LABS: ANION GAP 12.3 MEQ/L (5-15)
[2023-01-26 18:17] LABS: Slide Review YES
[2023-01-27] MEDS: solu-MEDROL 60 MG, Sterile H2O 10 ml 1 ML IV SCH ×4 (00:47→06:10)
[2023-01-27] MEDS: TYLENOL 325 MG PO PRN (00:52)
[2023-01-27] MEDS: DUONEB 0.5-3 MG/3 ml Neb IH SCH ×3 (00:55→13:12)
[2023-01-27] MEDS: Merrem 1 GM in Sodium Chloride 100ML MINI-BAG PLUS 100 ML IV SCH ×2 (06:10→14:28)
[2023-01-27] MEDS: Amaryl 2 MG PO SCH (07:12)
[2023-01-27] MEDS: NORVASC 5 MG PO SCH (07:12)
[2023-01-27] MEDS: Glucophage 500 MG PO SCH (07:12)
[2023-01-27] MEDS: HUMALOG SQ PRN ×2 (07:42→12:02)
[2023-01-27] MEDS: REQUIP 2MG TAB PO SCH ×2 (09:09→14:31)
[2023-01-27] MEDS: Lasix 40 MG PO SCH (09:10)
[2023-01-27] MEDS: Klor Con PO SCH (09:10)
[2023-01-27] MEDS: Protonix 40MG Tablet PO SCH (09:10)
[2023-01-27] MEDS: Cozaar 50 MG PO SCH (09:10)
[2023-01-27] MEDS: JARDIANCE PO SCH (09:11)
[2023-01-27] MEDS: Zithromax 500 MG/ 250 ML NaCl Premix 500 MG/250 ML IVPB IV SCH (09:34)
[2023-01-27 11:55] VITALS: BP 189/76
[2023-01-27] MEDS ORDERED: solu-MEDROL 60 MG, Sterile H2O 10 ml 2 ML IV SCH ×2 (12:00)
[2023-01-27 13:15] VITALS: PULSE 78
[2023-01-27] MEDS: PERCOCET TABLET 5/325MG PO PRN (15:15)
--- NOTE | 2023-01-27 16:08 | PCM.NOTE ---
Date and Time: 01/27/23 1608 Subjective Assessment: Progressing without complication Physical Exam - Narrative Narrative Physical Exam: Podiatry Physical Exam OBJECTIVE DATA Vital Signs: Vital Signs - 24 hr Temp Pulse Resp BP Pulse Ox 01/27/23 13:14 78 28 H 91 L 01/27/23 11:54 97.6 F 83 16 189/76 92 L 01/27/23 07:40 97.1 F 89 18 188/77 92 L 01/27/23 06:30 84 26 H 91 L 01/27/23 04:00 97.8 F 90 26 H 187/86 92 L 01/27/23 00:55 87 20 90 L 01/26/23 23:50 97.1 F 88 19 176/72 91 L 01/26/23 20:00 97.5 F 94 H 30 H 175/73 91 L 01/26/23 17:00 94 H 16 90 L Pain Assessment - Last Documented Pain Intensity 4 Pain Scale Used 0-10 Pain Scale Intake and Output: Intake & Output 01/25/23 01/26/23 01/27/23 01/28/23 11:59 11:59 11:59 11:59 Intake Total 2900 2320 3148 Output Total 2830 4100 3100 Balance 70 -1780 48 Weight 104 kg 104.7 kg 104.7 kg Lab Results: Lab Results-Last 24 Hours 01/26/23 01/26/23 01/26/23 Range/Units 15:45 15:45 22:09 Sodium 139 (137-145) mmol/L Potassium 4.3 (3.5-5.1) mmol/L Chloride 92 L (98-107) mmol/L Carbon Dioxide 39 H (22-30) mmol/L Anion Gap 12.3 (5-15) MEQ/L BUN 38 H (7-17) mg/dL Creatinine 0.76 (0.52-1.04) mg/dL Estimated GFR > 60.0 ML/MIN Glucose 306 H (74-106) mg/dL POC Glucometer 245 H (74 to 106) mg/dL Calcium 8.6 (8.4-10.2) mg/dL Total Bilirubin 0.40 (0.2-1.3) mg/dL AST 61 H (14-36) U/L ALT 60 H (0-35) U/L Alkaline Phosphatase 67 (38-126) U/L Serum Total Protein 7.3 (6.3-8.2) g/dL Albumin 3.5 (3.5-5.0) g/dL Slides for Path Review YES 01/27/23 01/27/23 Range/Units 07:24 11:15 Sodium (137-145) mmol/L Potassium (3.5-5.1) mmol/L Chloride (98-107) mmol/L Carbon Dioxide (22-30) mmol/L Anion Gap (5-15) MEQ/L BUN (7-17) mg/dL Creatinine (0.52-1.04) mg/dL Estimated GFR ML/MIN Glucose (74-106) mg/dL POC Glucometer 367 H 263 H (74 to 106) mg/dL Calcium (8.4-10.2) mg/dL Total Bilirubin (0.2-1.3) mg/dL AST (14-36) U/L ALT (0-35) U/L Alkaline Phosphatase (38-126) U/L Serum Total Protein (6.3-8.2) g/dL Albumin (3.5-5.0) g/dL Slides for Path Review Radiology Exams: Radiology Procedures Category Date Time Status VENOUS BILATERAL EXTREMITY [US] Urgent Exams 01/25/23 17:17 Completed Multi-Disciplinary Progress Notes: Multi-Disciplinary Progress Notes 01/27/23 15:26 Case Management Note by Alicia Palacios [facility] HAS RECEIVED APPROVAL. THEY WILL HAVE THEIR VAN COME GET PATIENT AT 1600. PRIMARY RN NOTIFIED WELL PATIENT. PATIENT VERIFIED UNDERSTANDING AND STATED SHE WOULD NOTIFY HER SPOUSE. Initialized on 01/27/23 15:26 - END OF NOTE 01/27/23 13:29 Case Management Note by Alicia Palacios REFERRAL STILL PENDING AT [facility] WAITING FOR INSURANCE APPROVAL Initialized on 01/27/23 13:29 - END OF NOTE 01/27/23 10:48 Case Management Note by Alicia Palacios [facility] PAPERWORK COMPLETE- NO LEVEL II REQUIRED, FAXED TO [facility] Initialized on 01/27/23 10:48 - END OF NOTE Assessment/Plan (1) Acute and chronic respiratory failure with hypoxia Current Visit: Yes Status: Acute Assessment & Plan: Patient examination and evaluation Venous dopplers demonstrating widely patent veins with no indications of occlusion agree with radiologist read. Will proceed with dressings to the bilateral lower extremity for compression for venous insufficiency ulcerations. Unna boots applied to the bilateral lower extremity with idoine adaptic unna boot 4x4 and coban. DC to long term Follow up out patient Will follow with you. Code(s): J96.21 - ACUTE AND CHRONIC RESPIRATORY FAILURE WITH HYPOXIA (2) Acute exacerbation of chronic obstructive pulmonary disease (COPD) Current Visit: Yes Status: Acute Code(s): J44.1 - CHRONIC OBSTRUCTIVE PULMONARY DISEASE W (ACUTE) EXACERBATION (3) Cellulitis of both lower extremities Current Visit: Yes Status: Acute Code(s): L03.115 - CELLULITIS OF RIGHT LOWER LIMB; L03.116 - CELLULITIS OF LEFT LOWER LIMB (4) Bilateral lower leg cellulitis Current Visit: No Status: Acute Code(s): L03.116 - CELLULITIS OF LEFT LOWER LIMB; L03.115 - CELLULITIS OF RIGHT LOWER LIMB (5) Diabetic ulcer of lower leg Current Visit: No Status: Acute Code(s): E11.622 - TYPE 2 DIABETES MELLITUS WITH OTHER SKIN ULCER; L97.909 - NON-PRS CHRONIC ULC UNSP PRT OF UNSP LOW LEG W UNSP SEVERITY (6) Swelling of lower leg Current Visit: No Status: Acute Code(s): M79.89 - OTHER SPECIFIED SOFT TISSUE DISORDERS (7) Type 2 diabetes mellitus Current Visit: No Status: Chronic Qualifiers: Diabetes mellitus care home insulin use: without predatory animal exterminator use (8) CHF exacerbation Current Visit: No Status: Resolved Qualifiers: Heart failure type: combined systolic and diastolic Qualified Code(s): I50.43 - Acute on chronic combined systolic (congestive) and diastolic (congestive) heart failure Code(s): I50.9 - HEART FAILURE, UNSPECIFIED (9) COPD exacerbation Current Visit: No Status: Resolved Code(s): J44.1 - CHRONIC OBSTRUCTIVE PULMONARY DISEASE W (ACUTE) EXACERBATION
[2023-01-27 20:53] VITALS: O2SAT 94
== END 2023-01-27 16:27 | DRG 189 ==
LOC: ED 13:21 → MED SURG 16:02 → OBSVTOIN 01-24 08:28
PROVIDERS: ADMIT General Practice; ATTEND Family Medicine
DX: J96.21 Acute and chronic respiratory failure with hypoxia (principal); J44.1 Chronic obstructive pulmonary disease with (acute) exacerbation; L03.116 Cellulitis of left lower limb; L03.115 Cellulitis of right lower limb; E11.622 Type 2 diabetes mellitus with other skin ulcer; M79.89 Other specified soft tissue disorders; I11.0 Hypertensive heart disease with heart failure; I50.9 Heart failure, unspecified; E78.5 Hyperlipidemia, unspecified; Z99.81 Dependence on supplemental oxygen; Z79.899 Other long term (current) drug therapy; Z20.828 Contact with and (suspected) exposure to other viral communicable diseases; Z72.0 Tobacco use
CPT/HCPCS: 0241U; 29580; 36415; 71045; 80053; 81001; 82947; 83036; 83605; 83735; 83880; 84134; 84145; 84484; 85025; 85027; 87040; 87086; 93005; 93041; 93268; 93970; 94640; 94762; 96365; 96367; 96374; 97110; 97162; 97597; 99222; 99232; 99285; G0378; J0456; J1817; J2920; J2930; A9270-GY

== ENCOUNTER 2023-04-22 12:43 | Observation (INO) | payer MEDICARE ==
[2023-04-22] MEDS ORDERED: DUONEB 0.5-3 MG/3 ml Neb IH ONE ×2 (12:53→13:51)
[2023-04-22 14:07] LABS: Absolute Neutrophil Ct (ANC) 6.25 x10^3/uL (1.4-6.9); BASOPHIL % 0.2 % (0.0-0.4); Basophil (Absolute #) 0.02 x10^3/uL (0-0.4); Eosinophil % 1.9 % (0.00-5.0); Eosinophil (Absolute #) 0.16 x10^3/uL (0-0.5); Hematocrit 35.4 % (35-47); Hemoglobin 10.3 g/dL (12.0-16.0); IMMATURE GRAN # 0.04 x10^3u/L (0.00-0.03); IMMATURE GRAN % 0.5 % (0.00-0.4); Lymphocyte (Absolute #) 1.38 x10^3/uL (1.0-4.6); Lymphocytes % 16.3 % (24.0-44.0); Mean Cell Volume 95.2 fL (78-100); Mean Corpuscular Hemoglobin 27.7 pg (26-32); Mean Corpuscular Hgb Concent. 29.1 g/dL (32-36); Mean Platelet Volume 9.7 fL (7.5-11.0); Monocyte (Absolute #) 0.64 x10^3/uL (0.0-1.3); Monocytes % 7.5 % (0.0-12.0); Neutrophil % 73.6 % (36.0-66.0); Platelet Count 257 x10^3/uL (150-450); Red Blood Count 3.72 x10^6/uL (4.1-5.4); Red Cell Distribution Width 14.2 % (11.5-14.0); White Blood Count 8.5 x10^3/uL (4.0-10.5)
[2023-04-22] MEDS ORDERED: TYLENOL 325 MG PO STA (14:26)
[2023-04-22] MEDS ORDERED: TYLENOL 325 MG ONE (14:29)
--- NOTE | 2023-04-22 14:42 | XRAY ---
Indication: Short of breath. Comparison: January 23, 2023 Portable chest improved with clearing previous bibasilar infiltrates/atelectasis with minimal residual left lung. Heart not enlarged for AP portable technique. No new cardiopulmonary abnormalities.
--- NOTE | 2023-04-22 15:19 | ERPHSYRPT ---
- History of Present Illness Time Seen by Provider: 04/22/23 12:49 Patient Subjective Stated Complaint: SOB/BLE pain Triage Nursing Assessment: Patient brought into ED per w/c without home O2. Patient complains of SOB an states she left her oxygen in the truck. Patient immediately brought to room and O2 76% on room air. Patient placed on O2 at 5 liters per N/C and sat came up to 96%. Patient states she is here due to BLE pain. Patient's BLE noted to be red, swollen, warm with mulitple open areas with crusty drainage and blisters. Patient complains of pain to BLE 06/15. Physician History: 67-year-old female with multiple medical problems including chronic respiratory failure secondary to COPD on 5 L oxygen, hypertension, hyperlipidemia, diabetes mellitus, chronic lower extremity swelling presented in the ER with chief complaint of increasing shortness of breath and cough productive of clear to yellow sputum and bilateral lower extremity swelling redness and open sores which are progressively worsening. Patient reports dull aching pain both lower extremities. No fever or chills reported. Patient oxygen saturation was 76% on room air on presentation as she left her oxygen tank in the car. She is placed on 5 L oxygen and it improved to 96%. She has minimal wheezing bilaterally. No obvious crackles on exam. She has bilaterally lower extremity swelling redness scaling and some yellowish- green discharge. 2+ pitting edema. Distal neurovascular intact. She is given DuoNeb and feeling better. She is not hypoxic and not in any distress. Work-up showed normal white count and lactate. Chest x-ray showed improvement from previous bibasilar infiltrates. No new infectious process noticed. No pulmonary edema/congestion. EKG did not show any acute ST elevation and has negative initial troponin. Normal BNP. I believe patient has bilateral lower extremity cellulitis and is started on IV antibiotics. Allergies/Adverse Reactions: codeine Allergy (Intermediate, Verified 04/22/23 12:44) rash, itching cefaclor [From Ceclor] Allergy (Mild, Verified 04/22/23 12:44) Rash Penicillins Allergy (Mild, Verified 04/22/23 12:44) Swelling bacitracin [From Neosporin ([id number])] Adverse Reaction (Mild, Verified 04/22/23 12:44) Itching bacitracin zinc [From Neosporin ([id number])] Adverse Reaction (Mild, Verified 04/22/23 12:44) Itching levofloxacin [From Levaquin] Adverse Reaction (Mild, Verified 04/22/23 12:44) itch neomycin sulfate [From Neosporin ([id number])] Adverse Reaction (Mild, Verified 04/22/23 12:44) itch polymyxin B [From Neosporin ([id number])] Adverse Reaction (Mild, Verified 04/22/23 12:44) Itching Home Medications: Ropinirole HCl 3 mg PO TID 01/23/23 [History] Hx Tetanus, Diphtheria Vaccination/Date Given: Yes Hx Influenza Vaccination/Date Given: No Hx Pneumococcal Vaccination/Date Given: No Immunizations Up to Date: Yes Travel Risk - International Travel Have you traveled outside of the country in past 3 weeks: No - Coronavirus Screening Are you exhibiting any of the following symptoms?: No Close contact with a COVID-19 positive Pt in past 14-21 Days: No - Vaccine Status Have you recieved a Covid-19 vaccination: No - Review of Systems Constitutional: Fatigue Eyes: No Symptoms Ears, Nose, & Throat: No Symptoms Respiratory: Cough, Dyspnea, Dyspnea on Exertion (MEJIA), Wheezing Cardiac: Edema Abdominal/Gastrointestinal: No Symptoms Genitourinary Symptoms: No Symptoms Musculoskeletal: Arthralgias Skin: Cellulitis, Skin Lesions Neurological: No Symptoms Hematologic/Lymphatic: No Symptoms Immunological/Allergic: No Symptoms - Past Medical History Pertinent Past Medical History: Yes Neurological History: No Pertinent History ENT History: No Pertinent History Cardiac History: Congestive Heart Failure, Hypertension, Peripheral Vascular Disease Respiratory History: COPD, Emphysema Endocrine Medical History: Diabetes Type II Musculoskeletal History: Arthritis, Fibromyalgia GI Medical History: No Pertinent History History: Other Psycho-Social History: No Pertinent History Female Reproductive Disorders: No Pertinent History Other Medical History: Stress Incontinence - Past Surgical History Past Surgical History: Yes Neuro Surgical History: No Pertinent History Cardiac: No Pertinent History Respiratory: No Pertinent History Gastrointestinal: Cholecystectomy Genitourinary: No Pertinent History Musculoskeletal: No Pertinent History Female Surgical History: Tubal Ligation - Social History Smoking Status: Current every day smoker How long have you smoked: 50 years Exposure to second hand smoke: Yes Drug Use: none Patient Lives Alone: No Significant Family History: no pertinent family hx - Nursing Vital Signs Nursing Vital Signs: Initial Vital Signs Temperature 97.8 F 04/22/23 12:45 Pulse Rate 103 H 04/22/23 12:45 Respiratory Rate 20 04/22/23 12:45 Blood Pressure 131/91 04/22/23 12:45 O2 Sat by Pulse Oximetry 96 04/22/23 12:45 Pain Scale Pain Intensity 4 - Physical Exam General Appearance: no apparent distress, alert Eye Exam: PERRL/EOMI, eyes nml inspection Ears, Nose, Throat Exam: hearing grossly normal, normal ENT inspection, normal pharynx Neck Exam: normal inspection, non-tender, supple, full range of motion Respiratory Exam: rhonchi, wheezing Cardiovascular/Chest Exam: normal heart sounds, regular rate/rhythm Abdominal/Gastrointestinal Exam: soft, normal bowel sounds, tenderness Extremity Exam: inflammation (Bilateral lower extremity/feet erythema and swelling up to mid calf with scaling and yellow-green discharge seeping from the sites. Warm and mildly tender to touch. Distal neurovascular intact.), pedal edema, swelling Neurologic Exam: alert, 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, cooperative Skin Exam: rash SpO2 Interpretation: O2 applied SpO2: 95 O2 Delivery: Nasal Cannula (5 L) - Course EKG Interpreted by Me: RATE (102), Sinus Tach, NORMAL AXIS, Right Bundle Branch Block, Non-specific ST Changes Ordered Tests: Active Orders 24 hr Category Date Time Status Hearing Screen Coordinator STAT Care 04/22/23 12:54 Active EKG-ER Only STAT Care 04/22/23 12:53 Active Summers [Catheter-Oxford Summers] STAT Care 04/22/23 14:46 Active IV Insertion STAT Care 04/22/23 12:53 Active CHEST 1 VIEW (PORTABLE) Stat Exams 04/22/23 12:53 Completed BLOOD CULTURE Stat Lab 04/22/23 14:00 Ordered CBC W DIFF Stat Lab 04/22/23 14:00 Received CMP Stat Lab 04/22/23 14:00 Received CULTURE,URINE Stat Lab 04/22/23 14:52 Received Lactic Acid Stat Lab 04/22/23 14:00 Completed MAGNESIUM Stat Lab 04/22/23 14:00 Received NT PRO BNPII Stat Lab 04/22/23 14:00 Received PROCALCITONIN Stat Lab 04/22/23 14:00 Received TROPONIN Q4H Lab 04/22/23 14:00 Received TROPONIN Q4H Lab 04/22/23 17:00 Ordered TROPONIN Q4H Lab 04/22/23 21:00 Ordered UA W/RFX UR CULTURE Stat Lab 04/22/23 14:52 Received Respiratory Therapy Assessment DAILY RT 04/22/23 13:56 Active Medication Summary Generic Name Dose Route Start Last Admin Trade Name Jorge PRN Reason Stop Dose Admin Meropenem 1 gm/ Sodium 100 mls @ 200 mls/hr 04/22/23 15:23 Chloride IV 04/22/23 15:52 STAT ONE Clindamycin HCl/Dextrose 600 mg in 50 mls @ 100 mls/hr 04/22/23 15:23 Clindamycin-D5w 600 Mg/50 Ml IV 04/22/23 15:52 STAT STA Discontinued Medications Generic Name Dose Route Start Last Admin Trade Name Jorge PRN Reason Stop Dose Admin Acetaminophen 975 mg 04/22/23 14:26 04/22/23 14:32 Acetaminophen 325 Mg Tablet PO 04/22/23 14:27 975 mg STAT STA Administration Acetaminophen Confirm 04/22/23 14:29 Acetaminophen 325 Mg Tablet Administered 04/22/23 14:30 Dose 975 mg .ROUTE .STK-MED ONE Albuterol/Ipratropium 3 ml 04/22/23 12:53 04/22/23 13:53 Ipratropium/Albuterol Sulfate 3 Ml Ampul.Neb IH 04/22/23 12:54 3 ml STAT ONE Administration Albuterol/Ipratropium Confirm 04/22/23 13:51 Ipratropium/Albuterol Sulfate 3 Ml Ampul.Neb Administered 04/22/23 13:52 Dose 3 ml IH .STK-MED ONE Lab/Rad Data: Laboratory Results 04/22/23 Range/Units 14:00 Lactic Acid 0.5 (0.4-2.0) - Progress Progress: improved, re-examined Air Movement: good Progress Note: 04/22/23 15:19 67-year-old female with multiple medical problems including chronic respiratory failure secondary to COPD on 5 L oxygen, hypertension, hyperlipidemia, diabetes mellitus, chronic lower extremity swelling presented in the ER with chief comp laint of increasing shortness of breath and cough productive of clear to yellow sputum and bilateral lower extremity swelling redness and open sores which are progressively worsening. Patient reports dull aching pain both lower extremities. No fever or chills reported. Patient oxygen saturation was 76% on room air on presentation as she left her oxygen tank in the car. She is placed on 5 L oxygen and it improved to 96%. She has minimal wheezing bilaterally. No obvious crackles on exam. She has bilaterally lower extremity swelling redness scaling and some yellowish- green discharge. 2+ pitting edema. Distal neurovascular intact. She is given DuoNeb and feeling better. She is not hypoxic and not in any distress. Work-up showed normal white count and lactate. Chest x-ray showed improvement from previous bibasilar infiltrates. No new infectious process noticed. No pulmonary edema/congestion. EKG did not show any acute ST elevation and has negative initial troponin. Normal BNP. I believe patient has bilateral lower extremity cellulitis and is started on IV antibiotics. 04/22/23 15:43 I have discussed the results of work-up and current treatment plan with patient and she agreed with admission. I have discussed with Dr. Arana, reviewed history, work-up and patient is accepted for admission. Blood Culture(s) Obtained: Yes Antibiotics given: Yes Counseled pt/family regarding: lab results, diagnosis, need for follow-up, rad results Medical Desision Making - Discussion of managment Care discussed with:: hospitalist (Dr. Arana at 1530) Reviewed:: Test results, Need for additional workup Agreed on:: Treatment plan, place in obs Will see patient: in hospital - Diagnostic Testing Diagnostic test were ordered, analyzed, and reviewed by me: Yes Radiological Interpretation: Reviewed by me - Risk of complications The pt has a high risk of morbidity or mortality based on: Decision regarding hospitilization or escalation of hosp level of care - Departure Departure Disposition: Observation Clinical Impression: Bilateral lower leg cellulitis, COPD (chronic obstructive pulmonary disease) Condition: Stable Critical Care Time: No Referrals: DEB ESQUIVEL MD [Primary Care Provider] - Follow up/PCP as directed Instructions: Chronic Obstructive Pulmonary Disease
[2023-04-22] MEDS ORDERED: Merrem 1 GM in Sodium Chloride 100ML MINI-BAG PLUS 100 ML IV ONE (15:23)
[2023-04-22] MEDS ORDERED: CLINDAMYCIN-D5W 600 MG/50 ML*** 600 MG/50 ML BAG IV STA (15:23)
[2023-04-22 15:59] LABS: Appearance Turbid (Clear); Bacteria Many /HPF (None Seen); Bilirubin Negative (Negative); Blood NHT (Negative); Glucose, Urine Negative (Negative); Hyaline Casts NONE SEEN /LPF (0-2); Ketones Negative (Negative); Leukocyte Esterase Large (Negative); Nitrite Positive (Negative); Ph 6.5 (4.6-8.0); Protein,Urine Dip 100 (Negative); RBC 0-2 /HPF (0-5); Specific Gravity 1.015 (1.005-1.030)
--- NOTE | 2023-04-22 16:14 | PCM.HP ---
History of Present Illness - Chief Complaint Chief Complaint: Cellulitis Date: 04/22/23 History of Present Illness: is a 67 year old female with multiple medical problems including chronic respiratory failure secondary to COPD on home O2 of 5 L BL, hypertension , hyperlipidemia, diabetes mellitus, chronic lower extremity swelling. She presented in the ER with chief complaint of increasing shortness of breath and cough productive of clear to yellow sputum and bilateral lower extremity swelling redness and open sores which are progressively worsening. Patient reports dull aching pain both lower extremities. No fever or chills reported. Per ER report patient's oxygen saturation was 76% on room air on presentation as she left her oxygen tank in the car. She is placed on 5 L oxygen and it improved to 96%. Lung sounds are clear. She has bilaterally lower extremity swelling redness scaling and some yellowish-green discharge. 2+ pitting edema. She is given a DuoNeb in ER and feeling better. She is not hypoxic and not in any distress. Work-up showed normal white count and lactate. For some reason labs are not flowing into the computer and were printed out to review. Chest x- ray showed improvement from previous bibasilar infiltrates. EKG did not show any acute ST elevation and has negative initial troponin. Normal BNP. She has bilateral lower extremity cellulitis and was started on IV antibiotics in the ER, merrem, and clindamycin. She is wanting to go to a rehab to get stronger upon d/c will discuss this with case management tomorrow. - Review of Systems Constitutional: No Fever, No Chills Eyes: No Symptoms Ears, Nose, & Throat: No Symptoms Respiratory: Wheezing (BLLE), No Cough, No Short Of Breath Cardiac: No Chest Pain, No Edema, No Syncope Abdominal/Gastrointestinal: No Abdominal Pain, No Nausea, No Vomiting, No Diarrhea Genitourinary Symptoms: No Dysuria Musculoskeletal: No Back Pain, No Neck Pain Skin: Cellulitis (BLLE), No Rash Neurological: No Dizziness, No Focal Weakness, No Sensory Changes Psychological: No Symptoms Endocrine: No Symptoms Hematologic/Lymphatic: No Symptoms Immunological/Allergic: No Symptoms Medications & Allergies Home Medications: Home Medication List Ropinirole HCl 3 mg PO TID 01/23/23 [History Confirmed 01/23/23] Acetaminophen 325 mg [Tylenol 325 mg] 650 mg PO Q4H PRN PRN tablet 01/27/23 [Rx] Albuterol/Ipratropium 3ml Neb* [DUONEB 0.5-3 MG/3 ml Neb] 3 ml IH Q6HRT [Rx] Amlodipine Besylate 5 mg [Norvasc 5 mg] 5 mg PO BID tablet 01/27/23 [Rx] Azithromycin [Azithromycin 250 mg Pack] 250 mg PO UD #6 tablet 01/27/23 [Rx] Empagliflozin [Jardiance] 10 mg PO DAILY tablet 01/27/23 [Rx] Furosemide 40 mg [Lasix 40 MG] 40 mg PO DAILY tablet 01/27/23 [Rx] Glimepiride 2 mg [Amaryl 2 MG] 1 mg PO BREAKFAST tablet 01/27/23 [Rx] Insulin Aspart 1 unit SQ ACHS PRN #1 01/27/23 [Rx] Losartan Potassium [Cozaar] 50 mg PO BID #60 tablet 01/27/23 [Rx] Meropenem [Merrem] 1 gm IV Q8HT #15 01/27/23 [Rx] Metformin HCl 500 mg [Glucophage 500 MG] 500 mg PO BIDWM tablet 01/27/23 [Rx] Ondansetron HCl 4 mg/2 ml [Zofran 4 MG/2 ML VIAL] 4 mg PO Q6H PRN PRN 01/27/23 [Rx] Oxycodone/APAP 5 mg/325 mg [Percocet Tablet 5/325Mg] 1 tab PO Q4H PRN PRN #0 tablet 01/27/23 [Rx] PANTOPRAZOLE 40 mg Tablet [Protonix 40MG Tablet] 40 mg PO DAILY tablet 01/27/23 [Rx] Potassium Chloride Tab* [Klor Con] 10 meq PO DAILY tablet 01/27/23 [Rx] Prednisone 20 mg [Deltasone 20 mg] 0 mg PO UD #20 tablet 01/27/23 [Rx] Allergies/Adverse Reactions: Allergies Allergy/AdvReac Type Severity Reaction Status Date / Time codeine Allergy Intermediate rash, Verified 04/22/23 12:44 itching cefaclor [From Ceclor] Allergy Mild Rash Verified 04/22/23 12:44 Penicillins Allergy Mild Swelling Verified 04/22/23 12:44 bacitracin AdvReac Mild Itching Verified 04/22/23 12:44 [From Neosporin ([id number])] bacitracin zinc AdvReac Mild Itching Verified 04/22/23 12:44 [From Neosporin ([id number])] levofloxacin [From Levaquin] AdvReac Mild itch Verified 04/22/23 12:44 neomycin sulfate AdvReac Mild itch Verified 04/22/23 12:44 [From Neosporin ([id number])] polymyxin B AdvReac Mild Itching Verified 04/22/23 12:44 [From Neosporin ([id number])] - Past Medical History Past Medical History: Yes Neurological History: No Pertinent History ENT History: No Pertinent History Cardiac History: Congestive Heart Failure, Hypertension, Peripheral Vascular Disease Respiratory History: COPD, Emphysema Endocrine Medical History: Diabetes Type II Musculoskelatal History: Arthritis, Fibromyalgia GI Medical History: No Pertinent History History: Other Pyscho-Social History: No Pertinent History Reproductive Disorders: No Pertinent History Comment: Stress Incontinence - Past Surgical History Past Surgical History: Yes Neuro Surgical History: No Pertinent History Cardiac History: No Pertinent History Respiratory Surgery: No Pertinent History GI Surgical History: Cholecystectomy Genitourinary Surgical Hx: No Pertinent History Musculskeletal Surgical Hx: No Pertinent History Female Surgical History: Tubal Ligation - Social History Smoking Status: Current every day smoker How long have you smoked: 50 years Exposure to second hand smoke: Yes Alcohol: None Drug Use: none Significant Family History: no pertinent family hx - Physical Exam Vital Signs: Vital Signs - 24 hr Temp Pulse Resp BP BP Pulse Ox 04/22/23 15:49 95 04/22/23 15:01 101 H 33 H 131/52 95 04/22/23 14:41 107 H 16 100/85 92 L 04/22/23 14:40 109 H 27 H 100/85 04/22/23 14:30 106 H 24 04/22/23 14:26 100 H 24 04/22/23 13:57 99 H 18 95 04/22/23 12:45 97.8 F 103 H 20 131/91 95 General Appearance: mild distress Neurologic Exam: alert Eye Exam: PERRL/EOMI, eyes nml inspection Ears, Nose, Throat Exam: normal ENT inspection, TMs normal, pharynx normal, moist mucous membranes Neck Exam: normal inspection, non-tender, supple, full range of motion Respiratory Exam: normal breath sounds, lungs clear, No respiratory distress Cardiovascular Exam: regular rate/rhythm, normal heart sounds, normal peripheral pulses Gastrointestinal/Abdomen Exam: soft, normal bowel sounds, No tenderness, No mass Back Exam: normal inspection, normal range of motion, No CVA tenderness, No vertebral tenderness Extremity Exam: normal inspection, normal range of motion, pelvis stable Skin Exam: normal color, warm, dry, other (BLLE cellulitis, + 3 pitting edema, edema, erythema lesions in multiple stages of healing on BLLE.), No rash Lymphatic Exam: No adenopathy Results - Labs Lab/Micro Results: Lab Results-Last 24 Hours 04/22/23 Range/Units 14:00 Lactic Acid 0.5 (0.4-2.0) Microbiology 04/22/23 12:53 Blood Culture Gram Stain - Final Blood Not Reportable - Radiology Impressions Radiology Exams & Impressions: Radiology Procedures Category Date Time Status CHEST 1 VIEW (PORTABLE) Stat Exams 04/22/23 12:53 Completed - Other Procedures and Tests Respiratory Therapy 04/22/23 13:56 Respiratory Therapy Assessment DAILY Assessment/Plan (1) Bilateral lower leg cellulitis Current Visit: Yes Status: Acute Assessment & Plan: - continue Merrem and clindamycin as gave in ER - PT eval and treat for possible UNNA Boot need - elevate legs - BL venous duplex - D-Dimer - CBC and CMP in AM Code(s): L03.116 - CELLULITIS OF LEFT LOWER LIMB; L03.115 - CELLULITIS OF RIGHT LOWER LIMB (2) COPD (chronic obstructive pulmonary disease) Current Visit: Yes Status: Chronic Qualifiers: Assessment & Plan: -Chronic - BL O2 requirement 5LNC - currently on 5LNC - RT eval and treat (3) Generalized weakness Current Visit: Yes Status: Acute Assessment & Plan: - pt would like rehab at d/c will work with case management - Chronic and worsening - Pt to eval and treat Code(s): R53.1 - WEAKNESS (4) Dysuria Current Visit: No Status: Acute Assessment & Plan: - hairston in place. - Pt unable to stand or walk Code(s): R30.0 - DYSURIA (5) HTN (hypertension) Current Visit: No Status: Chronic Qualifiers: Qualified Code(s): I10 - Essential (primary) hypertension Assessment & Plan: - chronic - continue home meds Code(s): I10 - ESSENTIAL (PRIMARY) HYPERTENSION (6) Type 2 diabetes mellitus Current Visit: No Status: Chronic Assessment & Plan: - Insulin moderate dose s/s - hold metformin PPI: Protonix DVT: Lovenox D/C plan: 1-2 days Next of kin/ POA:
[2023-04-22 16:34] LABS: ADD URINE CULTURE? ORDERED SEPARATELY (NO); Epithelial Cells None Seen /HPF (None Seen); WBC 51-100 /HPF (0-5)
[2023-04-22 16:37] LABS: ALBUMIN 3.7 g/dL (3.5-5.0); ALKALINE PHOSPHATASE 63 U/L (38-126); BLOOD UREA NITROGEN 22 mg/dL (7-17); CHLORIDE 91 mmol/L (98-107); Calcium 9.7 mg/dL (8.4-10.2); Creatinine 1 0.54 mg/dL (0.52-1.04); EST GLOMERULAR FILTRATION RATE > 60.0 ML/MIN; Glucose 184 mg/dL (74-106); MAGNESIUM 2.1 mg/dL (1.6-2.3); Potassium 4.2 mmol/L (3.5-5.1); SGOT/AST 18 U/L (14-36); SGPT/ALT 18 U/L (0-35); SODIUM 139 mmol/L (137-145)
[2023-04-22 16:38] LABS: Carbon Dioxide 41 mmol/L (22-30)
[2023-04-22 16:39] LABS: ANION GAP 11.2 MEQ/L (5-15)
[2023-04-22 16:41] LABS: NT PRO BNPII 262 pg/mL (<300); TROPONIN < 0.012 ng/mL (0.000-0.034)
[2023-04-22] MEDS: DUONEB 0.5-3 MG/3 ml Neb IH SCH (17:08)
[2023-04-22] MEDS ORDERED: DUONEB 0.5-3 MG/3 ml Neb IH PRN (17:15)
[2023-04-22] MEDS: Merrem 1 GM in Sodium Chloride 100ML MINI-BAG PLUS 100 ML IV SCH ×2 (18:00→22:38)
[2023-04-22] MEDS: CLINDAMYCIN-D5W 600 MG/50 ML*** 600 MG/50 ML BAG IV SCH ×2 (18:38→22:38)
[2023-04-22] MEDS: ENOXAPARIN SODIUM SQ SCH (21:10)
[2023-04-23] MEDS: TYLENOL 325 MG PO PRN ×2 (01:03→06:05)
[2023-04-23 05:14] LABS: Hematocrit 33.3 % (35-47); Hemoglobin 9.9 g/dL (12.0-16.0); Mean Cell Volume 93.8 fL (78-100); Mean Corpuscular Hemoglobin 27.9 pg (26-32); Mean Corpuscular Hgb Concent. 29.7 g/dL (32-36); Mean Platelet Volume 9.9 fL (7.5-11.0); Platelet Count 256 x10^3/uL (150-450); Red Blood Count 3.55 x10^6/uL (4.1-5.4); Red Cell Distribution Width 14.2 % (11.5-14.0); White Blood Count 7.1 x10^3/uL (4.0-10.5)
[2023-04-23 05:40] LABS: ALBUMIN 3.4 g/dL (3.5-5.0); ALKALINE PHOSPHATASE 59 U/L (38-126); BLOOD UREA NITROGEN 15 mg/dL (7-17); CHLORIDE 91 mmol/L (98-107); Calcium 9.1 mg/dL (8.4-10.2); Creatinine 1 0.54 mg/dL (0.52-1.04); EST GLOMERULAR FILTRATION RATE > 60.0 ML/MIN; Glucose 200 mg/dL (74-106); SGOT/AST 17 U/L (14-36); SGPT/ALT 18 U/L (0-35); SODIUM 136 mmol/L (137-145); Total Protein 6.4 g/dL (6.3-8.2)
[2023-04-23] MEDS: DUONEB 0.5-3 MG/3 ml Neb IH SCH ×3 (05:43→19:44)
[2023-04-23 05:46] LABS: Carbon Dioxide 40 mmol/L (22-30)
[2023-04-23] MEDS: CLINDAMYCIN-D5W 600 MG/50 ML*** 600 MG/50 ML BAG IV SCH ×3 (06:05→22:19)
[2023-04-23] MEDS: Merrem 1 GM in Sodium Chloride 100ML MINI-BAG PLUS 100 ML IV SCH ×3 (06:05→22:18)
--- NOTE | 2023-04-23 08:03 | PCM.NOTE ---
Date and Time: 04/23/23 0757 Subjective Assessment: is a 67 year old female with multiple medical problems including chronic respiratory failure secondary to COPD on home O2 of 5 L BL, hypertension, hyperlipidemia, diabetes mellitus, chronic lower extremity swelling. She presented in the ER with chief complaint of increasing shortness of breath and cough productive of clear to yellow sputum and bilateral lower extremity swelling redness and open sores which are progressively worsening. Patient reports dull aching pain both lower extremities. No fever or chills reported. Per ER report patient's oxygen saturation was 76% on room air on presentation as she left her oxygen tank in the car. She is placed on 5 L oxygen and it improved to 96%. Lung sounds are clear. She has bilaterally lower extremity swelling redness scaling and 2+ pitting edema. leg area already looking better compared to yesterday. She is not hypoxic and not in any dis tress. Chest x-ray showed improvement from previous bibasilar infiltrates. EKG did not show any acute ST elevation and has negative troponins. Normal BNP. She has bilateral lower extremity cellulitis. Antibiotics include merrem, and clindamycin- will narrow with culture data. . She is wanting to go to a rehab to get stronger upon d/c case management is working on placement. She denies any further concerns at this time. - Review of Systems Constitutional: Weakness, No Fever, No Chills Eyes: No Symptoms Ears, Nose, & Throat: No Symptoms Respiratory: No Cough, No Short Of Breath Cardiac: No Chest Pain, No Edema, No Syncope Abdominal/Gastrointestinal: No Abdominal Pain, No Nausea, No Vomiting, No Diarrhea Genitourinary Symptoms: No Dysuria Musculoskeletal: No Back Pain, No Neck Pain Skin: Cellulitis, No Rash Neurological: No Dizziness, No Focal Weakness, No Sensory Changes Psychological: No Symptoms Endocrine: No Symptoms Hematologic/Lymphatic: No Symptoms Immunological/Allergic: No Symptoms Objective Exam General Appearance: no apparent distress, alert Neurologic Exam: alert, 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, cooperative, normal mood/affect, nml ce rebellar function, sensation nml, No motor deficits Skin Exam: normal color, warm, dry Wound Assessment: Skin/Wound Assessment Wound/Incision Assessment Start: 04/22/23 17:28 Text: Status: Active Freq: Q6H Protocol: Document 04/23/23 02:00 MP (Rec: 04/23/23 02:49 MP [id number]) Wound Photo Photo Taken Yes Eye Exam: PERRL, EOMI, eyes nml inspection Ears, Nose, Throat Exam: normal ENT inspection, pharynx normal, moist mucous membranes Neck Exam: normal inspection, non-tender, supple, full range of motion Respiratory Exam: normal breath sounds, lungs clear, No respiratory distress Cardiovascular Exam: regular rate/rhythm, normal heart sounds Gastrointestinal/Abdomen Exam: soft, No tenderness, No mass Extremity Exam: normal inspection, normal range of motion, inflammation, swelling (+2 pitting edema), tenderness (BLLE) Back Exam: normal inspection, normal range of motion, No CVA tenderness, No vertebral tenderness Pelvic Exam: deferred Rectal Exam: deferred OBJECTIVE DATA Vital Signs: Vital Signs - 24 hr Temp Pulse Resp BP BP Pulse Ox 04/23/23 07:14 97.6 F 75 20 182/80 90 L 04/23/23 05:43 99 H 20 99 04/23/23 03:58 97.1 F 107 H 24 183/77 93 L 04/22/23 23:44 98.0 F 98 H 24 138/63 93 L 04/22/23 22:57 107 H 20 90 L 04/22/23 19:56 98.0 F 111 H 26 H 136/65 89 L 04/22/23 17:07 101 H 18 91 L 04/22/23 17:03 97.5 F 106 H 180/74 04/22/23 16:00 109 H 25 H 117/48 94 L 04/22/23 15:49 95 04/22/23 15:33 110 H 25 H 140/54 93 L 04/22/23 15:32 105 H 15 88 L 04/22/23 15:01 101 H 33 H 131/52 95 04/22/23 14:41 107 H 16 100/85 92 L 04/22/23 14:40 109 H 27 H 100/85 04/22/23 14:30 106 H 24 04/22/23 14:26 100 H 24 04/22/23 13:57 99 H 18 95 04/22/23 12:45 97.8 F 103 H 20 131/91 95 Pain Assessment - Last Documented Pain Intensity 5 Pain Scale Used 0-10 Pain Scale Intake and Output: Intake & Output 08/04/21/23 04/22/23 04/23/23 11:59 11:59 11:59 11:59 Intake Total 1740 Output Total 2250 Balance -510 Weight 96.6 kg Lab Results: Lab Results-Last 24 Hours 04/22/23 04/22/23 04/22/23 Range/Units 14:00 14:00 14:00 WBC 8.5 (4.0-10.5) x10^3/uL RBC 3.72 L (4.1-5.4) x10^6/uL Hgb 10.3 L (12.0-16.0) g/dL Hct 35.4 (35-47) % MCV 95.2 (78-100) fL MCH 27.7 (26-32) pg MCHC 29.1 L (32-36) g/dL RDW 14.2 H (11.5-14.0) % Plt Count 257 (150-450) x10^3/uL MPV 9.7 (7.5-11.0) fL Gran % 73.6 H (36.0-66.0) % Immature Gran % (Auto) 0.5 H (0.00-0.4) % Nucleat RBC Rel Count 0.0 (0.00-0.1) % Eos # (Auto) 0.16 (0-0.5) x10^3/uL Immature Gran # (Auto) 0.04 H (0.00-0.03) x10^3u/L Absolute Lymphs (auto) 1.38 (1.0-4.6) x10^3/uL Absolute Monos (auto) 0.64 (0.0-1.3) x10^3/uL Absolute Nucleated RBC 0.00 (0.00-0.01) x10^3u/L Lymphocytes % 16.3 L (24.0-44.0) % Monocytes % 7.5 (0.0-12.0) % Eosinophils % 1.9 (0.00-5.0) % Basophils % 0.2 (0.0-0.4) % Absolute Granulocytes 6.25 (1.4-6.9) x10^3/uL Basophils # 0.02 (0-0.4) x10^3/uL D-Dimer (0.0-0.50) mg/L Sodium 139 (137-145) mmol/L Potassium 4.2 (3.5-5.1) mmol/L Chloride 91 L (98-107) mmol/L Carbon Dioxide 41 H (22-30) mmol/L Anion Gap 11.2 (5-15) MEQ/L BUN 22 H (7-17) mg/dL Creatinine 0.54 (0.52-1.04) mg/dL Estimated GFR > 60.0 ML/MIN Glucose 184 H (74-106) mg/dL POC Glucometer (74 to 106) mg/dL Lactic Acid 0.5 (0.4-2.0) Calcium 9.7 (8.4-10.2) mg/dL Magnesium 2.1 (1.6-2.3) mg/dL Total Bilirubin 0.40 (0.2-1.3) mg/dL AST 18 (14-36) U/L ALT 18 (0-35) U/L Alkaline Phosphatase 63 (38-126) U/L Troponin I (0.000-0.034) ng/mL NT-Pro-B Natriuret Pep (<300) pg/mL Serum Total Protein 7.0 (6.3-8.2) g/dL Albumin 3.7 (3.5-5.0) g/dL Prealbumin (17.6-36.0) mg/dL Procalcitonin (0.030-0.080) ng/mL Urine Color (Yellow) Urine Appearance (Clear) Urine pH (4.6-8.0) Ur Specific Cushing (1.005-1.030) Urine Protein (Negative) Urine Glucose (UA) (Negative) mg/dL Urine Ketones (Negative) Urine Blood (Negative) Urine Nitrite (Negative) Urine Bilirubin (Negative) Urine Urobilinogen (0.2) mg/dL Ur Leukocyte Esterase (Negative) U Hyaline Cast (Auto) (0-2) /LPF Urine Microscopic RBC (0-5) /HPF Urine Microscopic WBC (0-5) /HPF Ur Epithelial Cells (None Seen) /HPF Urine Bacteria (None Seen) /HPF Urine Culture Reflexed (NO) 04/22/23 04/22/23 04/22/23 Range/Units 14:00 14:00 14:52 WBC (4.0-10.5) x10^3/uL RBC (4.1-5.4) x10^6/uL Hgb (12.0-16.0) g/dL Hct (35-47) % MCV (78-100) fL MCH (26-32) pg MCHC (32-36) g/dL RDW (11.5-14.0) % Plt Count (150-450) x10^3/uL MPV (7.5-11.0) fL Gran % (36.0-66.0) % Immature Gran % (Auto) (0.00-0.4) % Nucleat RBC Rel Count (0.00-0.1) % Eos # (Auto) (0-0.5) x10^3/uL Immature Gran # (Auto) (0.00-0.03) x10^3u/L Absolute Lymphs (auto) (1.0-4.6) x10^3/uL Absolute Monos (auto) (0.0-1.3) x10^3/uL Absolute Nucleated RBC (0.00-0.01) x10^3u/L Lymphocytes % (24.0-44.0) % Monocytes % (0.0-12.0) % Eosinophils % (0.00-5.0) % Basophils % (0.0-0.4) % Absolute Granulocytes (1.4-6.9) x10^3/uL Basophils # (0-0.4) x10^3/uL D-Dimer (0.0-0.50) mg/L Sodium (137-145) mmol/L Potassium (3.5-5.1) mmol/L Chloride (98-107) mmol/L Carbon Dioxide (22-30) mmol/L Anion Gap (5-15) MEQ/L BUN (7-17) mg/dL Creatinine (0.52-1.04) mg/dL Estimated GFR ML/MIN Glucose (74-106) mg/dL POC Glucometer (74 to 106) mg/dL Lactic Acid (0.4-2.0) Calcium (8.4-10.2) mg/dL Magnesium (1.6-2.3) mg/dL Total Bilirubin (0.2-1.3) mg/dL AST (14-36) U/L ALT (0-35) U/L Alkaline Phosphatase (38-126) U/L Troponin I < 0.012 (0.000-0.034) ng/mL NT-Pro-B Natriuret Pep 262 (<300) pg/mL Serum Total Protein (6.3-8.2) g/dL Albumin (3.5-5.0) g/dL Prealbumin (17.6-36.0) mg/dL Procalcitonin 0.051 (0.030-0.080) ng/mL Urine Color Yellow (Yellow) Urine Appearance Turbid A (Clear) Urine pH 6.5 (4.6-8.0) Ur Specific Cushing 1.015 (1.005-1.030) Urine Protein 100 A (Negative) Urine Glucose (UA) Negative (Negative) mg/dL Urine Ketones Negative (Negative) Urine Blood NHT (Negative) Urine Nitrite Positive A (Negative) Urine Bilirubin Negative (Negative) Urine Urobilinogen 1.0 A (0.2) mg/dL Ur Leukocyte Esterase Large A (Negative) U Hyaline Cast (Auto) NONE SEEN (0-2) /LPF Urine Microscopic RBC 0-2 (0-5) /HPF Urine Microscopic WBC 51-100 A (0-5) /HPF Ur Epithelial Cells None Seen (None Seen) /HPF Urine Bacteria Many A (None Seen) /HPF Urine Culture Reflexed ORDERED SEPARATELY (NO) 04/22/23 04/22/23 04/22/23 Range/Units 17:15 17:15 17:28 WBC (4.0-10.5) x10^3/uL RBC (4.1-5.4) x10^6/uL Hgb (12.0-16.0) g/dL Hct (35-47) % MCV (78-100) fL MCH (26-32) pg MCHC (32-36) g/dL RDW (11.5-14.0) % Plt Count (150-450) x10^3/uL MPV (7.5-11.0) fL Gran % (36.0-66.0) % Immature Gran % (Auto) (0.00-0.4) % Nucleat RBC Rel Count (0.00-0.1) % Eos # (Auto) (0-0.5) x10^3/uL Immature Gran # (Auto) (0.00-0.03) x10^3u/L Absolute Lymphs (auto) (1.0-4.6) x10^3/uL Absolute Monos (auto) (0.0-1.3) x10^3/uL Absolute Nucleated RBC (0.00-0.01) x10^3u/L Lymphocytes % (24.0-44.0) % Monocytes % (0.0-12.0) % Eosinophils % (0.00-5.0) % Basophils % (0.0-0.4) % Absolute Granulocytes (1.4-6.9) x10^3/uL Basophils # (0-0.4) x10^3/uL D-Dimer 0.91 H* (0.0-0.50) mg/L Sodium (137-145) mmol/L Potassium (3.5-5.1) mmol/L Chloride (98-107) mmol/L Carbon Dioxide (22-30) mmol/L Anion Gap (5-15) MEQ/L BUN (7-17) mg/dL Creatinine (0.52-1.04) mg/dL Estimated GFR ML/MIN Glucose (74-106) mg/dL POC Glucometer (74 to 106) mg/dL Lactic Acid (0.4-2.0) Calcium (8.4-10.2) mg/dL Magnesium (1.6-2.3) mg/dL Total Bilirubin (0.2-1.3) mg/dL AST (14-36) U/L ALT (0-35) U/L Alkaline Phosphatase (38-126) U/L Troponin I < 0.012 (0.000-0.034) ng/mL NT-Pro-B Natriuret Pep (<300) pg/mL Serum Total Protein (6.3-8.2) g/dL Albumin (3.5-5.0) g/dL Prealbumin 14.89 L (17.6-36.0) mg/dL Procalcitonin (0.030-0.080) ng/mL Urine Color (Yellow) Urine Appearance (Clear) Urine pH (4.6-8.0) Ur Specific Cushing (1.005-1.030) Urine Protein (Negative) Urine Glucose (UA) (Negative) mg/dL Urine Ketones (Negative) Urine Blood (Negative) Urine Nitrite (Negative) Urine Bilirubin (Negative) Urine Urobilinogen (0.2) mg/dL Ur Leukocyte Esterase (Negative) U Hyaline Cast (Auto) (0-2) /LPF Urine Microscopic RBC (0-5) /HPF Urine Microscopic WBC (0-5) /HPF Ur Epithelial Cells (None Seen) /HPF Urine Bacteria (None Seen) /HPF Urine Culture Reflexed (NO) 04/22/23 04/22/23 04/23/23 Range/Units 21:10 21:51 04:50 WBC 7.1 (4.0-10.5) x10^3/uL RBC 3.55 L (4.1-5.4) x10^6/uL Hgb 9.9 L (12.0-16.0) g/dL Hct 33.3 L (35-47) % MCV 93.8 (78-100) fL MCH 27.9 (26-32) pg MCHC 29.7 L (32-36) g/dL RDW 14.2 H (11.5-14.0) % Plt Count 256 (150-450) x10^3/uL MPV 9.9 (7.5-11.0) fL Gran % (36.0-66.0) % Immature Gran % (Auto) (0.00-0.4) % Nucleat RBC Rel Count (0.00-0.1) % Eos # (Auto) (0-0.5) x10^3/uL Immature Gran # (Auto) (0.00-0.03) x10^3u/L Absolute Lymphs (auto) (1.0-4.6) x10^3/uL Absolute Monos (auto) (0.0-1.3) x10^3/uL Absolute Nucleated RBC (0.00-0.01) x10^3u/L Lymphocytes % (24.0-44.0) % Monocytes % (0.0-12.0) % Eosinophils % (0.00-5.0) % Basophils % (0.0-0.4) % Absolute Granulocytes (1.4-6.9) x10^3/uL Basophils # (0-0.4) x10^3/uL D-Dimer (0.0-0.50) mg/L Sodium (137-145) mmol/L Potassium (3.5-5.1) mmol/L Chloride (98-107) mmol/L Carbon Dioxide (22-30) mmol/L Anion Gap (5-15) MEQ/L BUN (7-17) mg/dL Creatinine (0.52-1.04) mg/dL Estimated GFR ML/MIN Glucose (74-106) mg/dL POC Glucometer 272 H (74 to 106) mg/dL Lactic Acid (0.4-2.0) Calcium (8.4-10.2) mg/dL Magnesium (1.6-2.3) mg/dL Total Bilirubin (0.2-1.3) mg/dL AST (14-36) U/L ALT (0-35) U/L Alkaline Phosphatase (38-126) U/L Troponin I 0.012 (0.000-0.034) ng/mL NT-Pro-B Natriuret Pep (<300) pg/mL Serum Total Protein (6.3-8.2) g/dL Albumin (3.5-5.0) g/dL Prealbumin (17.6-36.0) mg/dL Procalcitonin (0.030-0.080) ng/mL Urine Color (Yellow) Urine Appearance (Clear) Urine pH (4.6-8.0) Ur Specific Cushing (1.005-1.030) Urine Protein (Negative) Urine Glucose (UA) (Negative) mg/dL Urine Ketones (Negative) Urine Blood (Negative) Urine Nitrite (Negative) Urine Bilirubin (Negative) Urine Urobilinogen (0.2) mg/dL Ur Leukocyte Esterase (Negative) U Hyaline Cast (Auto) (0-2) /LPF Urine Microscopic RBC (0-5) /HPF Urine Microscopic WBC (0-5) /HPF Ur Epithelial Cells (None Seen) /HPF Urine Bacteria (None Seen) /HPF Urine Culture Reflexed (NO) 04/23/23 04/23/23 Range/Units 04:50 06:50 WBC (4.0-10.5) x10^3/uL RBC (4.1-5.4) x10^6/uL Hgb (12.0-16.0) g/dL Hct (35-47) % MCV (78-100) fL MCH (26-32) pg MCHC (32-36) g/dL RDW (11.5-14.0) % Plt Count (150-450) x10^3/uL MPV (7.5-11.0) fL Gran % (36.0-66.0) % Immature Gran % (Auto) (0.00-0.4) % Nucleat RBC Rel Count (0.00-0.1) % Eos # (Auto) (0-0.5) x10^3/uL Immature Gran # (Auto) (0.00-0.03) x10^3u/L Absolute Lymphs (auto) (1.0-4.6) x10^3/uL Absolute Monos (auto) (0.0-1.3) x10^3/uL Absolute Nucleated RBC (0.00-0.01) x10^3u/L Lymphocytes % (24.0-44.0) % Monocytes % (0.0-12.0) % Eosinophils % (0.00-5.0) % Basophils % (0.0-0.4) % Absolute Granulocytes (1.4-6.9) x10^3/uL Basophils # (0-0.4) x10^3/uL D-Dimer (0.0-0.50) mg/L Sodium 136 L (137-145) mmol/L Potassium 4.0 (3.5-5.1) mmol/L Chloride 91 L (98-107) mmol/L Carbon Dioxide 40 H (22-30) mmol/L Anion Gap 9.0 (5-15) MEQ/L BUN 15 (7-17) mg/dL Creatinine 0.54 (0.52-1.04) mg/dL Estimated GFR > 60.0 ML/MIN Glucose 200 H (74-106) mg/dL POC Glucometer 176 H (74 to 106) mg/dL Lactic Acid (0.4-2.0) Calcium 9.1 (8.4-10.2) mg/dL Magnesium (1.6-2.3) mg/dL Total Bilirubin 0.40 (0.2-1.3) mg/dL AST 17 (14-36) U/L ALT 18 (0-35) U/L Alkaline Phosphatase 59 (38-126) U/L Troponin I (0.000-0.034) ng/mL NT-Pro-B Natriuret Pep (<300) pg/mL Serum Total Protein 6.4 (6.3-8.2) g/dL Albumin 3.4 L (3.5-5.0) g/dL Prealbumin (17.6-36.0) mg/dL Procalcitonin (0.030-0.080) ng/mL Urine Color (Yellow) Urine Appearance (Clear) Urine pH (4.6-8.0) Ur Specific Cushing (1.005-1.030) Urine Protein (Negative) Urine Glucose (UA) (Negative) mg/dL Urine Ketones (Negative) Urine Blood (Negative) Urine Nitrite (Negative) Urine Bilirubin (Negative) Urine Urobilinogen (0.2) mg/dL Ur Leukocyte Esterase (Negative) U Hyaline Cast (Auto) (0-2) /LPF Urine Microscopic RBC (0-5) /HPF Urine Microscopic WBC (0-5) /HPF Ur Epithelial Cells (None Seen) /HPF Urine Bacteria (None Seen) /HPF Urine Culture Reflexed (NO) Radiology Exams: Radiology Procedures Category Date Time Status CHEST 1 VIEW (PORTABLE) Stat Exams 04/22/23 12:53 Completed VENOUS BILATERAL EXTREMITY [US] Stat Exams 04/22/23 17:02 Taken Assessment/Plan (1) Bilateral lower leg cellulitis Current Visit: Yes Status: Acute Assessment & Plan: - continue Merrem and clindamycin as gave in ER- will narrow with culture data - PT eval and treat for possible UNNA Boot need - elevate legs - BL venous duplex - D-Dimer - CBC and CMP in AM Code(s): L03.116 - CELLULITIS OF LEFT LOWER LIMB; L03.115 - CELLULITIS OF RIGHT LOWER LIMB (2) COPD (chronic obstructive pulmonary disease) Current Visit: Yes Status: Chronic Qualifiers: Assessment & Plan: -Chronic - BL O2 requirement 5LNC - currently on 5LNC - RT eval and treat (3) Dysuria Current Visit: No Status: Acute Assessment & Plan: - hairston in place. - Pt unable to stand or walk Code(s): R30.0 - DYSURIA (4) HTN (hypertension) Current Visit: No Status: Chronic Qualifiers: Hypertension type: primary hypertension Qualified Code(s): I10 - Essential (primary) hypertension Assessment & Plan: - chronic - continue home meds Code(s): I10 - ESSENTIAL (PRIMARY) HYPERTENSION (5) Type 2 diabetes mellitus Current Visit: No Status: Chronic Qualifiers: Diabetes mellitus usp insulin use: without usp use Assessment & Plan: - Insulin moderate dose s/s - hold metformin (6) Generalized weakness Current Visit: Yes Status: Acute Assessment & Plan: - pt would like rehab at d/c will work with case management - Chronic and worsening - PT to eval and treat Code(s): R53.1 - WEAKNESS (7) UTI (urinary tract infection) Current Visit: Yes Status: Acute Assessment & Plan: - Hairston in place - antibiotic coverage PPI: Protonix DVT: Lovenox D/C plan: 1-2 days Next of kin/ POA: Code(s): N39.0 - URINARY TRACT INFECTION, SITE NOT SPECIFIED
--- NOTE | 2023-04-23 08:45 | XRAY ---
Indication: Bilateral edema and erythema. Two-dimensional sonogram and color Doppler imaging of the major venous vessels of the left and right leg performed. Comparison: January 25, 2023 No thrombus seen in the examined deep venous vessels of the left and right leg including greater saphenous vein. Veins demonstrate normal compressibility. Venous waveforms are normal with and without augmentation. Impression: Left and right legs continue to be negative for DVT.
[2023-04-23] MEDS: Cozaar 50 MG PO SCH (12:12)
[2023-04-23] MEDS: HUMALOG SQ PRN ×3 (12:17→22:17)
[2023-04-23] MEDS: ENOXAPARIN SODIUM SQ SCH (22:18)
[2023-04-24] MEDS: TYLENOL 325 MG PO PRN ×4 (03:25→23:44)
[2023-04-24] MEDS: Merrem 1 GM in Sodium Chloride 100ML MINI-BAG PLUS 100 ML IV SCH ×3 (05:45→21:56)
[2023-04-24] MEDS: CLINDAMYCIN-D5W 600 MG/50 ML*** 600 MG/50 ML BAG IV SCH ×3 (05:45→21:56)
[2023-04-24] MEDS: DUONEB 0.5-3 MG/3 ml Neb IH SCH ×3 (07:16→20:23)
[2023-04-24] MEDS: HUMALOG SQ PRN ×3 (08:42→21:55)
[2023-04-24] MEDS: Cozaar 50 MG PO SCH (08:42)
[2023-04-24 08:56] LABS: Hematocrit 34.5 % (35-47); Mean Cell Volume 95.8 fL (78-100); Mean Corpuscular Hemoglobin 27.8 pg (26-32); Mean Platelet Volume 10.2 fL (7.5-11.0); Platelet Count 224 x10^3/uL (150-450); Red Cell Distribution Width 14.2 % (11.5-14.0); White Blood Count 6.2 x10^3/uL (4.0-10.5)
[2023-04-24 09:26] LABS: ALBUMIN 3.1 g/dL (3.5-5.0); ALKALINE PHOSPHATASE 41 U/L (38-126); ANION GAP 7.5 MEQ/L (5-15); BLOOD UREA NITROGEN 10 mg/dL (7-17); CHLORIDE 96 mmol/L (98-107); Calcium 8.8 mg/dL (8.4-10.2); Carbon Dioxide 37 mmol/L (22-30); Creatinine 1 0.48 mg/dL (0.52-1.04); EST GLOMERULAR FILTRATION RATE > 60.0 ML/MIN; Glucose 185 mg/dL (74-106); Potassium 4.5 mmol/L (3.5-5.1); SGOT/AST 27 U/L (14-36); SGPT/ALT 17 U/L (0-35); SODIUM 136 mmol/L (137-145); Total Protein 6.2 g/dL (6.3-8.2)
[2023-04-24] MEDS ORDERED: Tums EX 750 MG PO PRN ×2 (13:06→14:01)
--- NOTE | 2023-04-24 13:06 | PCM.NOTE ---
Date and Time: 04/24/23 1301 Subjective Assessment: is a 67 year old female with multiple medical problems including chronic respiratory failure secondary to COPD on home O2 of 5 L BL, hypertension, hyperlipidemia, diabetes mellitus, chronic lower extremity swelling. She presented in the ER with chief complaint of increasing shortness of breath and cough productive of clear to yellow sputum and bilateral lower extremity swelling redness and open sores which are progressively worsening. Patient reports dull aching pain both lower extremities. No fever or chills reported. Per ER report patient's oxygen saturation was 76% on room air on presentation as she left her oxygen tank in the car. She is placed on 5 L oxygen and it improved to 96%. Lung sounds are clear. She has bilaterally lower extremity swelling redness scaling and 2+ pitting edema.Sx have improved, legs are wrapped. She is not hypoxic and not in any distress. Chest x-ray showed improvement from previous bibasilar infiltrates. EKG did not show any acute ST elevation and has negative troponins. Normal BNP. She has bilateral lower extremity cellulitis. Antibiotics include merrem, and clindamycin. BC x2 negative. Urine culture + for citrobacter Freundi. She is wanting to go to a rehab to get stronger upon d/c. Case management is working on placement and explained it will most likely be Wednesday before she can be accepted as pt will need an OT eval prior to d/c. She denies any further concerns at this time. <KARLEY HESTER - Last Filed: 04/24/23 13:00> Date and Time: 04/24/23 1319 <OLY HOLLIS - Last Filed: 04/24/23 13:23> - Review of Systems Constitutional: No Fever, No Chills Eyes: No Symptoms Ears, Nose, & Throat: No Symptoms Respiratory: Wheezing, No Cough, No Short Of Breath Cardiac: No Chest Pain, No Edema, No Syncope Abdominal/Gastrointestinal: Other (upset stomach), No Abdominal Pain, No Nausea, No Vomiting, No Diarrhea Genitourinary Symptoms: No Dysuria Musculoskeletal: No Back Pain, No Neck Pain Skin: Cellulitis, Skin Lesions (BLLE), No Rash Neurological: No Dizziness, No Focal Weakness, No Sensory Changes Psychological: No Symptoms Endocrine: No Symptoms Hematologic/Lymphatic: No Symptoms Immunological/Allergic: No Symptoms <KARLEY HESTER - Last Filed: 04/24/23 13:00> Objective Exam General Appearance: no apparent distress, alert, obese Neurologic Exam: alert, 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, cooperative, normal mood/affect, nml cerebellar function, sensation nml, No motor deficits Skin Exam: normal color, warm, dry, other (BLLE wrapped today) Wound Assessment: Skin/Wound Assessment Wound/Incision Assessment Start: 04/22/23 17:28 Text: Status: Active Freq: Q6H Protocol: Document 04/24/23 08:00 REYNA (Rec: 04/24/23 09:54 [id number]) Wound Photo Photo Taken Yes Eye Exam: PERRL, EOMI, eyes nml inspection Ears, Nose, Throat Exam: normal ENT inspection, pharynx normal, moist mucous membranes Neck Exam: normal inspection, non-tender, supple, full range of motion Respiratory Exam: normal breath sounds, lungs clear, wheezing (BLLL), No respiratory distress Cardiovascular Exam: regular rate/rhythm, normal heart sounds Gastrointestinal/Abdomen Exam: soft, No tenderness, No mass Extremity Exam: normal inspection, normal range of motion Back Exam: normal inspection, normal range of motion, No CVA tenderness, No vertebral tenderness Pelvic Exam: deferred Rectal Exam: deferred <KARLEY HESTER - Last Filed: 04/24/23 13:00> Wound Assessment: Skin/Wound Assessment Wound/Incision Assessment Start: 04/22/23 17:28 Text: Status: Active Freq: Q6H Protocol: Document 04/24/23 08:00 REYNA (Rec: 04/24/23 09:54 [id number]) Wound Photo Photo Taken Yes <OLY HOLLIS - Last Filed: 04/24/23 13:23> OBJECTIVE DATA Vital Signs: Vital Signs - 24 hr Temp Pulse Resp BP Pulse Ox 04/24/23 11:55 97.5 F 94 H 19 215/85 89 L 04/24/23 07:26 97.5 F 86 18 135/62 94 L 04/24/23 07:19 84 20 97 04/24/23 03:38 97.8 F 98 H 20 195/76 92 L 04/24/23 00:00 98.7 F 95 H 17 140/62 92 L 04/23/23 20:00 99.3 F 103 H 20 137/62 90 L 04/23/23 19:45 101 H 18 95 04/23/23 16:00 96.6 F 107 H 18 174/74 95 04/23/23 13:29 93 H 18 96 Pain Assessment - Last Documented Pain Intensity 5 Pain Scale Used 0-10 Pain Scale Intake and Output: Intake & Output 04/22/23 04/23/23 04/24/23 04/25/23 11:59 11:59 11:59 11:59 Intake Total 2100 1080 Output Total 2900 1750 Balance -800 -670 Weight 96.6 kg Lab Results: Lab Results-Last 24 Hours 04/23/23 04/23/23 04/24/23 Range/Units 16:27 20:43 07:09 WBC (4.0-10.5) x10^3/uL RBC (4.1-5.4) x10^6/uL Hgb (12.0-16.0) g/dL Hct (35-47) % MCV (78-100) fL MCH (26-32) pg MCHC (32-36) g/dL RDW (11.5-14.0) % Plt Count (150-450) x10^3/uL MPV (7.5-11.0) fL Sodium (137-145) mmol/L Potassium (3.5-5.1) mmol/L Chloride (98-107) mmol/L Carbon Dioxide (22-30) mmol/L Anion Gap (5-15) MEQ/L BUN (7-17) mg/dL Creatinine (0.52-1.04) mg/dL Estimated GFR ML/MIN Glucose (74-106) mg/dL POC Glucometer 187 H 254 H 156 H (74 to 106) mg/dL Calcium (8.4-10.2) mg/dL Total Bilirubin (0.2-1.3) mg/dL AST (14-36) U/L ALT (0-35) U/L Alkaline Phosphatase (38-126) U/L Serum Total Protein (6.3-8.2) g/dL Albumin (3.5-5.0) g/dL 04/24/23 04/24/23 04/24/23 Range/Units 08:56 08:56 11:26 WBC 6.2 (4.0-10.5) x10^3/uL RBC 3.60 L (4.1-5.4) x10^6/uL Hgb 10.0 L (12.0-16.0) g/dL Hct 34.5 L (35-47) % MCV 95.8 (78-100) fL MCH 27.8 (26-32) pg MCHC 29.0 L (32-36) g/dL RDW 14.2 H (11.5-14.0) % Plt Count 224 (150-450) x10^3/uL MPV 10.2 (7.5-11.0) fL Sodium 136 L (137-145) mmol/L Potassium 4.5 (3.5-5.1) mmol/L Chloride 96 L (98-107) mmol/L Carbon Dioxide 37 H (22-30) mmol/L Anion Gap 7.5 (5-15) MEQ/L BUN 10 (7-17) mg/dL Creatinine 0.48 L (0.52-1.04) mg/dL Estimated GFR > 60.0 ML/MIN Glucose 185 H (74-106) mg/dL POC Glucometer 197 H (74 to 106) mg/dL Calcium 8.8 (8.4-10.2) mg/dL Total Bilirubin 0.60 (0.2-1.3) mg/dL AST 27 (14-36) U/L ALT 17 (0-35) U/L Alkaline Phosphatase 41 (38-126) U/L Serum Total Protein 6.2 L (6.3-8.2) g/dL Albumin 3.1 L (3.5-5.0) g/dL Radiology Exams: Radiology Procedures Category Date Time Status CHEST 1 VIEW (PORTABLE) Stat Exams 04/22/23 12:53 Completed VENOUS BILATERAL EXTREMITY [US] Stat Exams 04/22/23 17:02 Completed <KARLEY HESTER - Last Filed: 04/24/23 13:00> Vital Signs: Vital Signs - 24 hr Temp Pulse Resp BP Pulse Ox 04/24/23 11:55 97.5 F 94 H 19 215/85 89 L 04/24/23 07:26 97.5 F 86 18 135/62 94 L 04/24/23 07:19 84 20 97 04/24/23 03:38 97.8 F 98 H 20 195/76 92 L 04/24/23 00:00 98.7 F 95 H 17 140/62 92 L 04/23/23 20:00 99.3 F 103 H 20 137/62 90 L 04/23/23 19:45 101 H 18 95 04/23/23 16:00 96.6 F 107 H 18 174/74 95 04/23/23 13:29 93 H 18 96 Pain Assessment - Last Documented Pain Intensity 5 Pain Scale Used 0-10 Pain Scale Intake and Output: Intake & Output 04/22/23 04/23/23 04/24/23 04/25/23 11:59 11:59 11:59 11:59 Intake Total 2100 1080 240 Output Total 2900 1750 Balance -800 -670 240 Weight 96.6 kg Lab Results: Lab Results-Last 24 Hours 04/23/23 04/23/23 04/24/23 Range/Units 16:27 20:43 07:09 WBC (4.0-10.5) x10^3/uL RBC (4.1-5.4) x10^6/uL Hgb (12.0-16.0) g/dL Hct (35-47) % MCV (78-100) fL MCH (26-32) pg MCHC (32-36) g/dL RDW (11.5-14.0) % Plt Count (150-450) x10^3/uL MPV (7.5-11.0) fL Sodium (137-145) mmol/L Potassium (3.5-5.1) mmol/L Chloride (98-107) mmol/L Carbon Dioxide (22-30) mmol/L Anion Gap (5-15) MEQ/L BUN (7-17) mg/dL Creatinine (0.52-1.04) mg/dL Estimated GFR ML/MIN Glucose (74-106) mg/dL POC Glucometer 187 H 254 H 156 H (74 to 106) mg/dL Calcium (8.4-10.2) mg/dL Total Bilirubin (0.2-1.3) mg/dL AST (14-36) U/L ALT (0-35) U/L Alkaline Phosphatase (38-126) U/L Serum Total Protein (6.3-8.2) g/dL Albumin (3.5-5.0) g/dL 04/24/23 04/24/23 04/24/23 Range/Units 08:56 08:56 11:26 WBC 6.2 (4.0-10.5) x10^3/uL RBC 3.60 L (4.1-5.4) x10^6/uL Hgb 10.0 L (12.0-16.0) g/dL Hct 34.5 L (35-47) % MCV 95.8 (78-100) fL MCH 27.8 (26-32) pg MCHC 29.0 L (32-36) g/dL RDW 14.2 H (11.5-14.0) % Plt Count 224 (150-450) x10^3/uL MPV 10.2 (7.5-11.0) fL Sodium 136 L (137-145) mmol/L Potassium 4.5 (3.5-5.1) mmol/L Chloride 96 L (98-107) mmol/L Carbon Dioxide 37 H (22-30) mmol/L Anion Gap 7.5 (5-15) MEQ/L BUN 10 (7-17) mg/dL Creatinine 0.48 L (0.52-1.04) mg/dL Estimated GFR > 60.0 ML/MIN Glucose 185 H (74-106) mg/dL POC Glucometer 197 H (74 to 106) mg/dL Calcium 8.8 (8.4-10.2) mg/dL Total Bilirubin 0.60 (0.2-1.3) mg/dL AST 27 (14-36) U/L ALT 17 (0-35) U/L Alkaline Phosphatase 41 (38-126) U/L Serum Total Protein 6.2 L (6.3-8.2) g/dL Albumin 3.1 L (3.5-5.0) g/dL Radiology Exams: Radiology Procedures Category Date Time Status CHEST 1 VIEW (PORTABLE) Stat Exams 04/22/23 12:53 Completed VENOUS BILATERAL EXTREMITY [US] Stat Exams 04/22/23 17:02 Completed <OLY HOLLIS - Last Filed: 04/24/23 13:23> Assessment/Plan (1) Bilateral lower leg cellulitis Current Visit: Yes Status: Acute Assessment & Plan: - continue Merrem and clindamycin as gave in ER - PT eval and treat for possible UNNA Boot need - elevate legs - BL venous duplex - negative for DVT - D-Dimer - CBC and CMP daily - BC X2 negative Code(s): L03.116 - CELLULITIS OF LEFT LOWER LIMB; L03.115 - CELLULITIS OF RIGHT LOWER LIMB (2) COPD (chronic obstructive pulmonary disease) Current Visit: Yes Status: Chronic Assessment & Plan: -Chronic - BL O2 requirement 5LNC - currently on 5LNC - RT eval and treat (3) Dysuria Current Visit: No Status: Acute Assessment & Plan: - hairston in place. - Pt unable to stand or walk Code(s): R30.0 - DYSURIA (4) HTN (hypertension) Current Visit: No Status: Chronic Qualifiers: Hypertension type: primary hypertension Qualified Code(s): I10 - Essential (primary) hypertension Assessment & Plan: - chronic - continue home meds Code(s): I10 - ESSENTIAL (PRIMARY) HYPERTENSION (5) Type 2 diabetes mellitus Current Visit: No Status: Chronic Qualifiers: Diabetes mellitus [facility] insulin use: without [facility] use Assessment & Plan: - Insulin moderate dose s/s - hold metformin (6) Generalized weakness Current Visit: Yes Status: Acute Assessment & Plan: - pt would like rehab at d/c will work with case management - Chronic and worsening - PT/ OT to eval and treat Code(s): R53.1 - WEAKNESS (7) UTI (urinary tract infection) Current Visit: Yes Status: Acute Assessment & Plan: - Hairston in place - antibiotic coverage - UC + for citrobacter Freundi PPI: Protonix DVT: Lovenox D/C plan: possibly Wednesday Next of kin/ POA: Code(s): N39.0 - URINARY TRACT INFECTION, SITE NOT SPECIFIED <KARLEY HESTER - Last Filed: 04/24/23 13:00> ANDRES Encounter - ANDRES Encounter Attestation ANDRES Encounter Attestation: "ARIELLA Jolley andhavediscussed pertinent aspects of their care with Karley Martinez agree with the history, physical exam (any modifications based on my personal exam will be noted below), assessment, and plan as outlined in original note. Please see immediately below for my summary of findings and additional assessment and plan along with any meaningful corrections/explanations to the Subjective/Objective portions of the ANDRES note will be noted." 67 y/o F with h/o COPD, chronic bilateral leg edema, here with bilateral leg swelling, possible cellulitis, and acute cystitis with Citrobacter. For now, continue broad-spectrum antibiotics, but if blood cultures negative at 48 hours, can narrow coverage to Rocephin and Clindamycin - suspect bilateral leg inflammation is due more to stasis dermatitis. My portion of the encounter took place via telemedicine. <OLY HOLLIS - Last Filed: 04/24/23 13:23>
[2023-04-24] MEDS: ENOXAPARIN SODIUM SQ SCH (21:55)
[2023-04-25] MEDS: CLINDAMYCIN-D5W 600 MG/50 ML*** 600 MG/50 ML BAG IV SCH ×4 (05:38→20:56)
[2023-04-25] MEDS: Merrem 1 GM in Sodium Chloride 100ML MINI-BAG PLUS 100 ML IV SCH ×3 (05:38→21:36)
[2023-04-25 06:15] LABS: Hematocrit 35.1 % (35-47); Hemoglobin 10.4 g/dL (12.0-16.0); Mean Cell Volume 93.9 fL (78-100); Mean Corpuscular Hemoglobin 27.8 pg (26-32); Mean Corpuscular Hgb Concent. 29.6 g/dL (32-36); Mean Platelet Volume 9.7 fL (7.5-11.0); Platelet Count 254 x10^3/uL (150-450); Red Blood Count 3.74 x10^6/uL (4.1-5.4); Red Cell Distribution Width 14.2 % (11.5-14.0); White Blood Count 6.3 x10^3/uL (4.0-10.5)
[2023-04-25 06:34] LABS: ALBUMIN 3.5 g/dL (3.5-5.0); ALKALINE PHOSPHATASE 56 U/L (38-126); ANION GAP 8.7 MEQ/L (5-15); BLOOD UREA NITROGEN 14 mg/dL (7-17); CHLORIDE 91 mmol/L (98-107); Calcium 9.2 mg/dL (8.4-10.2); Carbon Dioxide 40 mmol/L (22-30); Creatinine 1 0.64 mg/dL (0.52-1.04); EST GLOMERULAR FILTRATION RATE > 60.0 ML/MIN; Glucose 197 mg/dL (74-106); Potassium 4.4 mmol/L (3.5-5.1); SGOT/AST 21 U/L (14-36); SGPT/ALT 17 U/L (0-35); SODIUM 135 mmol/L (137-145); Total Protein 6.7 g/dL (6.3-8.2)
[2023-04-25] MEDS: DUONEB 0.5-3 MG/3 ml Neb IH SCH ×3 (07:44→19:05)
[2023-04-25] MEDS: HUMALOG SQ PRN ×4 (08:24→20:57)
[2023-04-25] MEDS: Cozaar 50 MG PO SCH (08:25)
--- NOTE | 2023-04-25 13:07 | PCM.NOTE ---
Date and Time: 04/25/23 1300 Subjective Assessment: is a 67 year old female with multiple medical problems including chronic respiratory failure secondary to COPD on home O2 of 5 L BL, hypertension, hyperlipidemia, diabetes mellitus, chronic lower extremity swelling. She presented in the ER with chief complaint of increasing shortness of breath and cough productive of clear to yellow sputum and bilateral lower extremity swelling redness and open sores which are progressively worsening. Patient reports dull aching pain both lower extremities. No fever or chills reported. Per ER report patient's oxygen saturation was 76% on room air on presentation as she left her oxygen tank in the car. She is placed on 5 L oxygen and it improved to 96%. Lung sounds are clear. She has bilaterally lower extremity swelling redness scaling and 2+ pitting edema.Sx have improved, legs are wrapped. She is not hypoxic and not in any distress. Chest x-ray showed improvement from previous bibasilar infiltrates. EKG did not show any acute ST elevation and has negative troponins. Normal BNP. She has bilateral lower extremity cellulitis. Antibiotics include merrem, and clindamycin. BC x2 negative. Urine culture + for citrobacter Freundi. She is wanting to go to a rehab to get stronger upon d/c. Case management is working on placement and explained it will most likely be Wednesday before she can be accepted as pt will need an OT eval prior to d/c. Pt is feeling much better today she is sitting up in bed and does not feel SOB. Grandson in room visiting. She denies any further concerns at this time. - Review of Systems Constitutional: No Fever, No Chills Eyes: No Symptoms Ears, Nose, & Throat: No Symptoms Respiratory: No Cough, No Short Of Breath Cardiac: No Chest Pain, No Edema, No Syncope Abdominal/Gastrointestinal: No Abdominal Pain, No Nausea, No Vomiting, No Diarrhea Genitourinary Symptoms: No Dysuria Musculoskeletal: No Back Pain, No Neck Pain Skin: Skin Lesions (BL legs wrapped), No Rash Neurological: No Dizziness, No Focal Weakness, No Sensory Changes Psychological: No Symptoms Endocrine: No Symptoms Hematologic/Lymphatic: No Symptoms Immunological/Allergic: No Symptoms Objective Exam General Appearance: no apparent distress, alert Neurologic Exam: alert, 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, cooperative, normal mood/affect, nml cerebellar function, sensation nml, No motor deficits Skin Exam: normal color, warm, dry Wound Assessment: Skin/Wound Assessment Wound/Incision Assessment Start: 04/22/23 17:28 Text: Status: Active Freq: Q6H Protocol: Document 04/25/23 08:00 RB (Rec: 04/25/23 08:15 RB [id number]) Wound Photo Photo Taken Yes Eye Exam: PERRL, EOMI, eyes nml inspection Ears, Nose, Throat Exam: normal ENT inspection, pharynx normal, moist mucous membranes Neck Exam: normal inspection, non-tender, supple, full range of motion Respiratory Exam: normal breath sounds, lungs clear, other (2LNC), No respiratory distress Cardiovascular Exam: regular rate/rhythm, normal heart sounds Gastrointestinal/Abdomen Exam: soft, No tenderness, No mass Extremity Exam: limited range of motion, other (BLLE wrapped) Back Exam: normal inspection, normal range of motion, No CVA tenderness, No vertebral tenderness Pelvic Exam: deferred Rectal Exam: deferred OBJECTIVE DATA Vital Signs: Vital Signs - 24 hr Temp Pulse Resp BP Pulse Ox 04/25/23 12:00 97.6 F 90 16 173/66 96 04/25/23 07:47 85 20 98 04/25/23 07:35 97.4 F 84 16 134/68 97 04/25/23 03:49 98.7 F 80 19 156/66 95 04/24/23 23:48 98.7 F 85 22 135/62 95 04/24/23 20:23 91 H 20 96 04/24/23 19:53 98.9 F 91 H 21 132/59 91 L 04/24/23 16:00 97.7 F 90 18 141/64 90 L 04/24/23 14:47 95 H 20 89 L Pain Assessment - Last Documented Pain Intensity 0 Pain Scale Used 0-10 Pain Scale Intake and Output: Intake & Output 04/23/23 04/24/23 04/25/23 04/26/23 11:59 11:59 11:59 11:59 Intake Total 2100 1080 1720 Output Total 2900 1750 1600 Balance -800 -670 120 Weight 96.6 kg Lab Results: Lab Results-Last 24 Hours 04/24/23 04/24/23 04/25/23 Range/Units 16:13 20:46 06:00 WBC (4.0-10.5) x10^3/uL RBC (4.1-5.4) x10^6/uL Hgb (12.0-16.0) g/dL Hct (35-47) % MCV (78-100) fL MCH (26-32) pg MCHC (32-36) g/dL RDW (11.5-14.0) % Plt Count (150-450) x10^3/uL MPV (7.5-11.0) fL Sodium 135 L (137-145) mmol/L Potassium 4.4 (3.5-5.1) mmol/L Chloride 91 L (98-107) mmol/L Carbon Dioxide 40 H (22-30) mmol/L Anion Gap 8.7 (5-15) MEQ/L BUN 14 (7-17) mg/dL Creatinine 0.64 (0.52-1.04) mg/dL Estimated GFR > 60.0 ML/MIN Glucose 197 H (74-106) mg/dL POC Glucometer 198 H 202 H (74 to 106) mg/dL Calcium 9.2 (8.4-10.2) mg/dL Total Bilirubin 0.30 (0.2-1.3) mg/dL AST 21 (14-36) U/L ALT 17 (0-35) U/L Alkaline Phosphatase 56 (38-126) U/L Serum Total Protein 6.7 (6.3-8.2) g/dL Albumin 3.5 (3.5-5.0) g/dL 04/25/23 04/25/23 04/25/23 Range/Units 06:18 07:08 11:41 WBC 6.3 (4.0-10.5) x10^3/uL RBC 3.74 L (4.1-5.4) x10^6/uL Hgb 10.4 L (12.0-16.0) g/dL Hct 35.1 (35-47) % MCV 93.9 (78-100) fL MCH 27.8 (26-32) pg MCHC 29.6 L (32-36) g/dL RDW 14.2 H (11.5-14.0) % Plt Count 254 (150-450) x10^3/uL MPV 9.7 (7.5-11.0) fL Sodium (137-145) mmol/L Potassium (3.5-5.1) mmol/L Chloride (98-107) mmol/L Carbon Dioxide (22-30) mmol/L Anion Gap (5-15) MEQ/L BUN (7-17) mg/dL Creatinine (0.52-1.04) mg/dL Estimated GFR ML/MIN Glucose (74-106) mg/dL POC Glucometer 213 H 174 H (74 to 106) mg/dL Calcium (8.4-10.2) mg/dL Total Bilirubin (0.2-1.3) mg/dL AST (14-36) U/L ALT (0-35) U/L Alkaline Phosphatase (38-126) U/L Serum Total Protein (6.3-8.2) g/dL Albumin (3.5-5.0) g/dL Assessment/Plan (1) Bilateral lower leg cellulitis Current Visit: Yes Status: Acute Assessment & Plan: - continue Merrem and clindamycin as gave in ER - PT eval and treat for possible [facility] Boot need - elevate legs - BL venous duplex - negative for DVT - D-Dimer - CBC and CMP daily - BC X2 negative Code(s): L03.116 - CELLULITIS OF LEFT LOWER LIMB; L03.115 - CELLULITIS OF RIGHT LOWER LIMB (2) COPD (chronic obstructive pulmonary disease) Current Visit: Yes Status: Chronic Qualifiers: Assessment & Plan: -Chronic - BL O2 requirement 5LNC - currently on 5LNC - RT eval and treat (3) Dysuria Current Visit: No Status: Acute Assessment & Plan: - hairston in place. - Pt unable to stand or walk Code(s): R30.0 - DYSURIA (4) HTN (hypertension) Current Visit: No Status: Chronic Qualifiers: Hypertension type: primary hypertension Qualified Code(s): I10 - Essential (primary) hypertension Assessment & Plan: - chronic- uncontrolled - continue home meds -04/25 Increased Losartan to 50mg daily Code(s): I10 - ESSENTIAL (PRIMARY) HYPERTENSION (5) Type 2 diabetes mellitus Current Visit: No Status: Chronic Qualifiers: Diabetes mellitus snf insulin use: without [employer] operator use Assessment & Plan: - Insulin moderate dose s/s - hold metformin (6) Generalized weakness Current Visit: Yes Status: Acute Assessment & Plan: - pt would like rehab at d/c will work with case management - Chronic and worsening - PT/ OT to eval and treat Code(s): R53.1 - WEAKNESS (7) UTI (urinary tract infection) Current Visit: Yes Status: Acute Assessment & Plan: - Hairston in place - antibiotic coverage - UC + for citrobacter Freundi PPI: Protonix DVT: Lovenox D/C plan: possibly Wednesday Next of kin/ POA: Code(s): N39.0 - URINARY TRACT INFECTION, SITE NOT SPECIFIED
[2023-04-25] MEDS ORDERED: Cozaar 50 MG PO ONE (13:15)
[2023-04-25] MEDS ORDERED: Cleocin Phosphate IV 600 MG/4 ML IV SCH (14:00)
[2023-04-25] MEDS: ENOXAPARIN SODIUM SQ SCH (20:56)
[2023-04-25] MEDS: TYLENOL 325 MG PO PRN (21:36)
[2023-04-26] MEDS: TYLENOL 325 MG PO PRN (01:44)
[2023-04-26 03:57] VITALS: RESP 18
[2023-04-26 04:44] LABS: Hematocrit 33.9 % (35-47); Hemoglobin 9.9 g/dL (12.0-16.0); Mean Cell Volume 94.2 fL (78-100); Mean Corpuscular Hemoglobin 27.5 pg (26-32); Mean Corpuscular Hgb Concent. 29.2 g/dL (32-36); Mean Platelet Volume 10.5 fL (7.5-11.0); Platelet Count 242 x10^3/uL (150-450); Red Cell Distribution Width 14.2 % (11.5-14.0); White Blood Count 5.4 x10^3/uL (4.0-10.5)
[2023-04-26] MEDS: CLINDAMYCIN-D5W 600 MG/50 ML*** 600 MG/50 ML BAG IV SCH ×2 (05:03→12:48)
[2023-04-26 05:19] LABS: ALBUMIN 3.2 g/dL (3.5-5.0); ALKALINE PHOSPHATASE 51 U/L (38-126); BLOOD UREA NITROGEN 19 mg/dL (7-17); CHLORIDE 92 mmol/L (98-107); Calcium 8.8 mg/dL (8.4-10.2); Creatinine 1 0.71 mg/dL (0.52-1.04); EST GLOMERULAR FILTRATION RATE > 60.0 ML/MIN; Glucose 205 mg/dL (74-106); SGOT/AST 18 U/L (14-36); SGPT/ALT 17 U/L (0-35); SODIUM 136 mmol/L (137-145); Total Protein 6.2 g/dL (6.3-8.2)
[2023-04-26 05:25] LABS: Carbon Dioxide 36 mmol/L (22-30)
[2023-04-26] MEDS: Merrem 1 GM in Sodium Chloride 100ML MINI-BAG PLUS 100 ML IV SCH ×2 (05:32→13:31)
[2023-04-26 05:46] LABS: ANION GAP 12 MEQ/L (5-15)
[2023-04-26] MEDS: DUONEB 0.5-3 MG/3 ml Neb IH SCH ×2 (07:25→13:09)
[2023-04-26] MEDS: HUMALOG SQ PRN ×2 (09:06→11:18)
[2023-04-26] MEDS ORDERED: Cozaar 50 MG PO SCH (10:00)
[2023-04-26 11:45] VITALS: BP 126/61; TEMP 98.1; O2SAT 93
--- NOTE | 2023-04-26 12:58 | PCM.DCORD ---
- Discharge Disposition: Home, Self-Care Condition: Stable Prescriptions: No Action Ropinirole HCl 3 mg PO TID Follow up with: DEB ESQUIVEL MD [Primary Care Provider] -
[2023-04-26] MEDS ORDERED: Acidophilus TABLET PO SCH (13:00)
--- NOTE | 2023-04-26 13:03 | PCM.NOTE ---
Date and Time: 04/26/23 4408 Subjective Assessment: is a 67 year old female with multiple medical problems including chronic respiratory failure secondary to COPD on home O2 of 5 L BL, hypertension, hyperlipidemia, diabetes mellitus, chronic lower extremity swelling. She presented in the ER with chief complaint of increasing shortness of breath and cough productive of clear to yellow sputum and bilateral lower extremity swelling redness and open sores which are progressively worsening. Patient reports dull aching pain both lower extremities. No fever or chills reported. Per ER report patient's oxygen saturation was 76% on room air on presentation as she left her oxygen tank in the car. She is placed on 5 L oxygen and it improved to 96%. Lung sounds are clear. She has bilaterally lower extremity swelling redness scaling and 2+ pitting edema.Sx have improved, legs are wrapped. She is not hypoxic and not in any distress. Chest x-ray showed improvement from previous bibasilar infiltrates. EKG did not show any acute ST elevation and has negative troponins. Normal BNP. She has bilateral lower extremity cellulitis. Antibiotics include merrem, and clindamycin. BC x2 negative. Urine culture + for citrobacter Freundi. Patient will discharge to SNF on clindamycin as well as Merrem for three more days. (1) Bilateral lower leg cellulitis Current Visit: Yes Status: Acute Assessment & Plan: - continue Merrem and clindamycin as gave in ER - PT eval and treat for possible UNNA Boot need - elevate legs - BL venous duplex - negative for DVT - D-Dimer - CBC and CMP daily - BC X2 negative Code(s): L03.116 - CELLULITIS OF LEFT LOWER LIMB; L03.115 - CELLULITIS OF RIGHT LOWER LIMB (2) COPD (chronic obstructive pulmonary disease) Current Visit: Yes Status: Chronic Qualifiers: Assessment & Plan: -Chronic - BL O2 requirement 5LNC - currently on 5LNC - RT eval and treat (3) Dysuria Current Visit: No Status: Acute Assessment & Plan: - mcmahon in place. - Pt unable to stand or walk Code(s): R30.0 - DYSURIA (4) HTN (hypertension) Current Visit: No Status: Chronic Qualifiers: Hypertension type: primary hypertension Qualified Code(s): I10 - Essential (primary) hypertension Assessment & Plan: - chronic- uncontrolled - continue home meds -04/25 Increased Losartan to 50mg daily Code(s): I10 - ESSENTIAL (PRIMARY) HYPERTENSION (5) Type 2 diabetes mellitus Current Visit: No Status: Chronic Qualifiers: Diabetes mellitus mcfp insulin use: without mcfp use Assessment & Plan: - Insulin moderate dose s/s - hold metformin (6) Generalized weakness Current Visit: Yes Status: Acute Assessment & Plan: - pt would like rehab at d/c will work with case management - Chronic and worsening - PT/ OT to eval and treat Code(s): R53.1 - WEAKNESS (7) UTI (urinary tract infection) Current Visit: Yes Status: Acute Assessment & Plan: - Mcmahon in place - antibiotic coverage - UC + for citrobacter Freundi - Review of Systems Constitutional: No Symptoms Eyes: No Symptoms Ears, Nose, & Throat: No Symptoms Respiratory: Short Of Breath Cardiac: No Symptoms Abdominal/Gastrointestinal: No Symptoms Genitourinary Symptoms: No Symptoms, Other (f/c discontinued) Musculoskeletal: No Symptoms Skin: Cellulitis (BLE wrapped in gauze) Neurological: No Symptoms Psychological: No Symptoms Endocrine: No Symptoms (at baseline oxygen 5L) Hematologic/Lymphatic: No Symptoms Immunological/Allergic: No Symptoms Objective Exam General Appearance: no apparent distress Neurologic Exam: alert, 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, cooperative Skin Exam: pale Wound Assessment: Skin/Wound Assessment Wound/Incision Assessment Start: 04/22/23 17:28 Text: Status: Active Freq: Q6H Protocol: Document 04/26/23 08:00 RB (Rec: 04/26/23 08:17 RB [id number]) Wound Photo Photo Taken No Eye Exam: PERRL Ears, Nose, Throat Exam: normal ENT inspection Respiratory Exam: normal breath sounds OBJECTIVE DATA Vital Signs: Vital Signs - 24 hr Temp Pulse Resp BP Pulse Ox 04/26/23 11:37 98.1 F 101 H 18 126/61 93 L 04/26/23 07:27 88 18 98 04/26/23 07:11 98.0 F 81 18 143/66 98 04/26/23 03:49 96.7 F 84 18 145/66 95 04/26/23 00:00 97.7 F 82 19 140/65 94 L 04/25/23 19:50 98.5 F 87 20 132/59 95 04/25/23 19:05 83 20 98 04/25/23 16:00 97.9 F 94 H 16 164/68 94 L 04/25/23 13:51 80 20 96 Pain Assessment - Last Documented Pain Intensity 8 [facility] Intake and Output: Intake & Output 04/24/23 04/25/23 04/26/23 04/27/23 11:59 11:59 11:59 11:59 Intake Total 1080 1720 3281 Output Total 1750 1600 5000 300 Balance -670 757 -7101 -918 Lab Results: Lab Results-Last 24 Hours 04/25/23 04/25/23 04/26/23 Range/Units 16:27 20:44 04:20 WBC 5.4 (4.0-10.5) x10^3/uL RBC 3.60 L (4.1-5.4) x10^6/uL Hgb 9.9 L (12.0-16.0) g/dL Hct 33.9 L (35-47) % MCV 94.2 (78-100) fL MCH 27.5 (26-32) pg MCHC 29.2 L (32-36) g/dL RDW 14.2 H (11.5-14.0) % Plt Count 242 (150-450) x10^3/uL MPV 10.5 (7.5-11.0) fL Sodium (137-145) mmol/L Potassium (3.5-5.1) mmol/L Chloride (98-107) mmol/L Carbon Dioxide (22-30) mmol/L Anion Gap (5-15) MEQ/L BUN (7-17) mg/dL Creatinine (0.52-1.04) mg/dL Estimated GFR ML/MIN Glucose (74-106) mg/dL POC Glucometer 246 H 176 H (74 to 106) mg/dL Calcium (8.4-10.2) mg/dL Total Bilirubin (0.2-1.3) mg/dL AST (14-36) U/L ALT (0-35) U/L Alkaline Phosphatase (38-126) U/L Serum Total Protein (6.3-8.2) g/dL Albumin (3.5-5.0) g/dL 04/26/23 04/26/23 04/26/23 Range/Units 04:20 06:39 11:00 WBC (4.0-10.5) x10^3/uL RBC (4.1-5.4) x10^6/uL Hgb (12.0-16.0) g/dL Hct (35-47) % MCV (78-100) fL MCH (26-32) pg MCHC (32-36) g/dL RDW (11.5-14.0) % Plt Count (150-450) x10^3/uL MPV (7.5-11.0) fL Sodium 136 L (137-145) mmol/L Potassium 4.0 (3.5-5.1) mmol/L Chloride 92 L (98-107) mmol/L Carbon Dioxide 36 H (22-30) mmol/L Anion Gap 12 (5-15) MEQ/L BUN 19 H (7-17) mg/dL Creatinine 0.71 (0.52-1.04) mg/dL Estimated GFR > 60.0 ML/MIN Glucose 205 H (74-106) mg/dL POC Glucometer 167 H 170 H (74 to 106) mg/dL Calcium 8.8 (8.4-10.2) mg/dL Total Bilirubin 0.30 (0.2-1.3) mg/dL AST 18 (14-36) U/L ALT 17 (0-35) U/L Alkaline Phosphatase 51 (38-126) U/L Serum Total Protein 6.2 L (6.3-8.2) g/dL Albumin 3.2 L (3.5-5.0) g/dL Multi-Disciplinary Progress Notes: Multi-Disciplinary Progress Notes 04/26/23 11:15 Case Management Note by Alicia Palacios S/Sharad PATIENT- SHE CONTINUES TO DENY AGREEABLE TO GO TO REHAB AT [facility]. UPDATED NOTES INCLUDING OT EVAL FAXED TO [facility] AT THIS TIME Initialized on 04/26/23 11:15 - END OF NOTE 04/26/23 11:08 Case Management Note by Alicia Palacios/Sharad [employer]- THEY WOULD IDEALLY LIKE PATIENT TO HAVE 3 MORE DAYS OF MERREM (COUNTING TODAY) Initialized on 04/26/23 11:08 - END OF NOTE 04/26/23 10:58 Physical Therapy Note by Fern(L#[id number])Rupa PT. WAS SEEN BY P.TRoger THIS A.M. IN BED UPON P.T. ARRIVAL TO ROOM. NO C/O PN OTHER THAN DISCOMFORT D/T CATHETER. PT. AGREEABLE TO P.T. ON 5L O2 PER NASAL CANNULA AND MCMAHON CATH PRESENT. O2 SATS 92% AT REST. REMOVED GAUZE FROM LLS THAT WAS LOOSE. NO DRAINAGE NOTED. MIN-NO ERYTHEMA. CLEANSED LLS W/ SOAP AND WATER AND WASHCLOTH. NOTED 2 SMALL SEROUS FILLED BLISTERS L LATERAL AND POSTEROLATERAL LL. APPLIED COPIOUS BARRIER OINTMENT TO LLS TO PROMOTE SKIN HYDRATION AND PROTECTION WELL SLOUGHING OF REMAINING EPIDERMAL SCALES. PT. PERFORMED ANKLE PUMPS, HEEL SLIDES AND SLRS X 5-10 REPS BILATERALLY W/ MANY V.C. FOR PURSED LIP BREATHING. PT. PERFORMED SUPINE TO SIT W/ MOD-MAX ASSIST. ABLE TO MAINTAIN STATIC SITTING BALANCE ON SIDE OF BED W/ CGA-SBA. SIT TO STAND PERFORMED W/ MIN-MOD ASSOST W/ ROLLATOR IN FRONT OF HER - REQUIRES V.C. FOR SAFE HAND PLACEMENT PRIOR TO STAND. NO DIZZINESS NOTED W/ POSITION CHANGE. REQUIRES V.C. TO PROMOTE ERECT TRUNK POSTURE AND TO BREATHE PROPERLY. TRANSFERRED TO BEDSIDE RECLINER W/ MIN ASSIST. AMBULATED ~ 25' W/ ROLLATOR AND MIN ASSIST X 1. NOTED VERY SLOW PACE AND DECREASED FOOT CLEARANCE AND STRIDE LENGTH. AGAIN MANY V.C. REQUIRED TO BREATHE PROPERLY SHE TENDS TO MOUTH BREATHE. O2 SATS 96% ON 5 L AFTER WALK. PT. LEFT SITTING IN RECLINER W/ LES ELEVATED W/ CALL LIGHT IN REACH. WILL CONT. P.T. 5X/WK UNTIL D/C TO ADDRESS WEAKNESS AND DECREASED ACTVITY TOLERANCE WELL TO MONITOR SKINF CONDITION. PLAN IS TO D/C TO ENVIVE TO CONT. REHAB WHEN PA OBTAINED FROM INSURANCE. Initialized on 04/26/23 10:58 - END OF NOTE
[2023-04-26 13:13] VITALS: PULSE 96
--- NOTE | 2023-04-26 13:14 | PCM.DS ---
Discharge Summary Date of Admission: 04/22/23 16:35 Date of Discharge: 04/26/23 Admitting Physician: ALONDRA WILKERSON MD Primary Care Provider: DEB ESQUIVEL Allergies Allergies codeine Allergy (Intermediate, Verified 04/22/23 12:44) rash, itching cefaclor [From Ceclor] Allergy (Mild, Verified 04/22/23 12:44) Rash Penicillins Allergy (Mild, Verified 04/22/23 12:44) Swelling bacitracin [From Neosporin ([id number])] Adverse Reaction (Mild, Verified 04/22/23 12:44) Itching bacitracin zinc [From Neosporin ([id number])] Adverse Reaction (Mild, Verified 04/22/23 12:44) Itching levofloxacin [From Levaquin] Adverse Reaction (Mild, Verified 04/22/23 12:44) itch neomycin sulfate [From Neosporin ([id number])] Adverse Reaction (Mild, Verified 04/22/23 12:44) itch polymyxin B [From Neosporin ([id number])] Adverse Reaction (Mild, Verified 04/22/23 12:44) Itching Hospital Summary - Hospital Course Hospital Course: is a 67 year old female with multiple medical problems including chronic respiratory failure secondary to COPD on home O2 of 5 L BL, hypertension, hyperlipidemia, diabetes mellitus, chronic lower extremity swell ing. She presented in the ER with chief complaint of increasing shortness of breath and cough productive of clear to yellow sputum and bilateral lower extremity swelling redness and open sores which are progressively worsening. Patient reports dull aching pain both lower extremities. No fever or chills reported. Per ER report patient's oxygen saturation was 76% on room air on presentation as she left her oxygen tank in the car. She is placed on 5 L oxygen and it improved to 96%. Lung sounds are clear. She has bilaterally lower extremity swelling redness scaling and 2+ pitting edema.Sx have improved, legs are wrapped. She is not hypoxic and not in any distress. Chest x-ray showed improvement from previous bibasilar infiltrates. EKG did not show any acute ST elevation and has negative troponins. Normal BNP. She has bilateral lower extremity cellulitis. Antibiotics include merrem, and clindamycin. BC x2 negative. Urine culture + for citrobacter Freundi. Patient will discharge to SNF on clindamycin as well as Merrem for three more days. (1) Bilateral lower leg cellulitis Current Visit: Yes Status: Acute Assessment & Plan: - continue Merrem and clindamycin as gave in ER - PT eval and treat for possible UNNA Boot need - elevate legs - BL venous duplex - negative for DVT - D-Dimer - CBC and CMP daily - BC X2 negative Code(s): L03.116 - CELLULITIS OF LEFT LOWER LIMB; L03.115 - CELLULITIS OF RIGHT LOWER LIMB (2) COPD (chronic obstructive pulmonary disease) Current Visit: Yes Status: Chronic Qualifiers: Assessment & Plan: -Chronic - BL O2 requirement 5LNC - currently on 5LNC - RT eval and treat (3) Dysuria Current Visit: No Status: Acute Assessment & Plan: - hairston in place. - Pt unable to stand or walk Code(s): R30.0 - DYSURIA (4) HTN (hypertension) Current Visit: No Status: Chronic Qualifiers: Hypertension type: primary hypertension Qualified Code(s): I10 - Essential (primary) hypertension Assessment & Plan: - chronic- uncontrolled - continue home meds -04/25 Increased Losartan to 50mg daily Code(s): I10 - ESSENTIAL (PRIMARY) HYPERTENSION (5) Type 2 diabetes mellitus Current Visit: No Status: Chronic Qualifiers: Diabetes mellitus intermediate designer insulin use: without skilled nursing use Assessment & Plan: - Insulin moderate dose s/s - hold metformin (6) Generalized weakness Current Visit: Yes Status: Acute Assessment & Plan: - pt would like rehab at d/c will work with case management - Chronic and worsening - PT/ OT to eval and treat Code(s): R53.1 - WEAKNESS (7) UTI (urinary tract infection) Current Visit: Yes Status: Acute Assessment & Plan: - Hairston in place - antibiotic coverage - UC + for citrobacter Freundi - Vitals & Intake/Output Vital Signs: Vital Signs Temperature 98.1 F 04/26/23 11:37 Pulse Rate 101 H 04/26/23 11:37 Respiratory Rate 18 04/26/23 11:37 Blood Pressure 126/61 04/26/23 11:37 O2 Sat by Pulse Oximetry 93 L 04/26/23 11:37 Intake & Output: Intake & Output 0804/25/23 04/26/23 04/27/23 11:59 11:59 11:59 11:59 Intake Total 9717 1720 3281 Output Total 1750 3079 5890 300 Balance -670 120 -1719 -300 - Lab Result Diagrams: 04/26/23 04:20 04/26/23 04:20 Lab Results-Last 24 Hrs: Lab Results-Last 24 Hours 04/25/23 04/25/23 04/26/23 Range/Units 16:27 20:44 04:20 WBC 5.4 (4.0-10.5) x10^3/uL RBC 3.60 L (4.1-5.4) x10^6/uL Hgb 9.9 L (12.0-16.0) g/dL Hct 33.9 L (35-47) % MCV 94.2 (78-100) fL MCH 27.5 (26-32) pg MCHC 29.2 L (32-36) g/dL RDW 14.2 H (11.5-14.0) % Plt Count 242 (150-450) x10^3/uL MPV 10.5 (7.5-11.0) fL Sodium (137-145) mmol/L Potassium (3.5-5.1) mmol/L Chloride (98-107) mmol/L Carbon Dioxide (22-30) mmol/L Anion Gap (5-15) MEQ/L BUN (7-17) mg/dL Creatinine (0.52-1.04) mg/dL Estimated GFR ML/MIN Glucose (74-106) mg/dL POC Glucometer 246 H 176 H (74 to 106) mg/dL Calcium (8.4-10.2) mg/dL Total Bilirubin (0.2-1.3) mg/dL AST (14-36) U/L ALT (0-35) U/L Alkaline Phosphatase (38-126) U/L Serum Total Protein (6.3-8.2) g/dL Albumin (3.5-5.0) g/dL 04/26/23 04/26/23 04/26/23 Range/Units 04:20 06:39 11:00 WBC (4.0-10.5) x10^3/uL RBC (4.1-5.4) x10^6/uL Hgb (12.0-16.0) g/dL Hct (35-47) % MCV (78-100) fL MCH (26-32) pg MCHC (32-36) g/dL RDW (11.5-14.0) % Plt Count (150-450) x10^3/uL MPV (7.5-11.0) fL Sodium 136 L (137-145) mmol/L Potassium 4.0 (3.5-5.1) mmol/L Chloride 92 L (98-107) mmol/L Carbon Dioxide 36 H (22-30) mmol/L Anion Gap 12 (5-15) MEQ/L BUN 19 H (7-17) mg/dL Creatinine 0.71 (0.52-1.04) mg/dL Estimated GFR > 60.0 ML/MIN Glucose 205 H (74-106) mg/dL POC Glucometer 167 H 170 H (74 to 106) mg/dL Calcium 8.8 (8.4-10.2) mg/dL Total Bilirubin 0.30 (0.2-1.3) mg/dL AST 18 (14-36) U/L ALT 17 (0-35) U/L Alkaline Phosphatase 51 (38-126) U/L Serum Total Protein 6.2 L (6.3-8.2) g/dL Albumin 3.2 L (3.5-5.0) g/dL Micro Results-Entire Visit: Microbiology 04/22/23 14:52 Urine Culture - Final Catherized Citrobacter Freundii 04/22/23 14:00 Blood Culture - Preliminary Blood Accuchecks Date 04/26/23 Date 04/26/23 Date 04/25/23 Time 11:37 Time 07:11 Time 20:45 - Procedures and Test Procedures and Tests throughout Hospitalization: Therapy Orders & Screens 04/22/23 13:56 Respiratory Therapy Assessment DAILY Comment: 04/22/23 16:42 PT Eval & Treat ( Order) ONCE Reason for Eval:: possible need for unna boots, Weakness eval for rehab, daily PT needs Diagnosis: Cellulitis 04/22/23 16:51 Oxygen Nasal Cannula 5 lpm Comment: Respiratory Therapy Consult ONCE Comment: Reason For Exam: 04/22/23 17:04 Respiratory Therapy Assessment DAILY Comment: Diagnosis: Cellulitis 04/22/23 17:28 OT Screen per Nursing Assess ONCE Comment: Protocol Order Physician Instructions: Greater than 3 points order OT Admission Screening Reason For Exam: Triggered on Admission Diagnosis: Cellulitis Open Wound/Cellutlitis/Pressure Ulcers: Yes Acute Fx/ORIF/Change in wt bearing status: Yes Severe MUSCULOSKELETAL pain: No ADL Dysfunction: Yes Acute CVA w/Hemiparesis/Hemiplegia: No Decreased Functional Mobility/Strength: Yes Sprain/Strain: No Acute Post-op Mobility Dysfunction: No Total Points: 14 PT Screen per Nursing Assess ONCE Comment: Protocol Order Physician Instructions: Greater than 3 points order PT Admission Screenin Reason For Exam: Triggered on Admission Diagnosis: Cellulitis Open Wound/Cellutlitis/Pressure Ulcers: Yes Acute Fx/ORIF/Change in wt bearing status: Yes Severe MUSCULOSKELETAL pain: No ADL Dysfunction: Yes Acute CVA w/Hemiparesis/Hemiplegia: No Decreased Functional Mobility/Strength: Yes Sprain/Strain: No Acute Post-op Mobility Dysfunction: No Total Points: 14 RT Screen per Nursing Assess ONCE Comment: Protocol Order Physician Instructions: Greater than 3 points order RT Admission Screen Reason For Exam: Triggered on Admission Diagnosis: Cellulitis Diagnosis: Cellulitis Pneumonia: No Home O2: Yes Asthma: No CHF: Yes Home CPAP/BIPAP: No Home Nebs/MDI: Yes Total Points: 13 Smoking Cessation Education ONCE Comment: Diagnosis: Cellulitis Smoking Status: Current every day smoker How long have you smoked: 50 years Have you smoked in the past 12 months: Yes Approximately how many cigarettes per day: 1.5 ppd Do you dip or chew tobacco: No 04/26/23 08:01 OT Eval and Treat (MD Order) ONCE Comment: Physician Instructions: Reason For Exam: per [place] request for precert Discharge Exam General Appearance: no apparent distress Neurologic Exam: alert, 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, cooperative Eye Exam: PERRL Neck Exam: normal inspection Respiratory Exam: diminished breath sounds Cardiovascular Exam: regular rate/rhythm, edema Gastrointestinal/Abdomen Exam: soft, normal bowel sounds Skin Exam: other (BLE edema/cellulitis wrapped in gauze) Wound Assessment: Skin/Wound Assessment Wound/Incision Assessment Start: 04/22/23 17:28 Text: Status: Active Freq: Q6H Protocol: Document 04/26/23 08:00 RB (Rec: 04/26/23 08:17 RB [id number]) Wound Photo Photo Taken No Final Diagnosis/Problem List - Final Discharge Diagnosis/Problem (1) Bilateral lower leg cellulitis Current Visit: Yes Status: Acute Code(s): L03.116 - CELLULITIS OF LEFT LOWER LIMB; L03.115 - CELLULITIS OF RIGHT LOWER LIMB (2) Generalized weakness Current Visit: Yes Status: Acute Code(s): R53.1 - WEAKNESS (3) UTI (urinary tract infection) Current Visit: Yes Status: Acute Code(s): N39.0 - URINARY TRACT INFECTION, SITE NOT SPECIFIED (4) COPD (chronic obstructive pulmonary disease) Current Visit: Yes Status: Chronic (5) Cellulitis of both lower extremities Current Visit: No Status: Acute Code(s): L03.115 - CELLULITIS OF RIGHT LOWER LIMB; L03.116 - CELLULITIS OF LEFT LOWER LIMB (6) Type 2 diabetes mellitus Current Visit: No Status: Chronic Priority: High (7) Uncontrolled hypertension Current Visit: No Status: Resolved Code(s): I10 - ESSENTIAL (PRIMARY) HYPE RTENSION - Discharge Disposition: DC TO ANY "OTHER" PRISON Condition: Stable Prescriptions: New Losartan Potassium 50 mg [Cozaar 50 MG] 50 mg PO DAILY 30 Days #30 tablet Clindamycin 600 mg/D5w 50 ml [Clindamycin-D5w 600 mg/50 ml] 600 mg IV Q8HT 3 Days Lactobacillus Acidophilus [Acidophilus TABLET] 1 tab PO DAILY tablet Meropenem [Merrem] 1 gm IV Q8HT Calcium Carbonate 750 mg [Tums EX 750 MG] 750 mg PO TIDPRN PRN tablet PRN Reason: Indigestion Acetaminophen 325 mg [Tylenol 325 mg] 650 mg PO Q4H PRN PRN tablet PRN Reason: Pain And/Or Fever Continue Ropinirole HCl 3 mg PO TID Additional Instructions: PRISON ORDERS: ADMIT TO PRISON CARE 1800 MAR DIET ACHS ACCU CHECKS PT/OT EVAL AND TREAT OXYGEN AT 5L/NC 24/7 SEE ATTACHED MED LIST Follow up with: DEB ESQUIVEL MD [Primary Care Provider] -
== END 2023-04-26 15:53 ==
LOC: ED 12:43 → MED SURG 16:35
PROVIDERS: ADMIT Internal Medicine; ATTEND Internal Medicine
DX: L03.116 Cellulitis of left lower limb (principal); L03.115 Cellulitis of right lower limb; J44.9 Chronic obstructive pulmonary disease, unspecified; R30.0 Dysuria; E11.9 Type 2 diabetes mellitus without complications; R53.1 Weakness; N39.0 Urinary tract infection, site not specified; J96.10 Chronic respiratory failure, unspecified whether with hypoxia or hypercapnia; I11.0 Hypertensive heart disease with heart failure; I50.9 Heart failure, unspecified; E78.5 Hyperlipidemia, unspecified; Z99.81 Dependence on supplemental oxygen; Z79.899 Other long term (current) drug therapy; Z20.828 Contact with and (suspected) exposure to other viral communicable diseases; Z72.0 Tobacco use
CPT/HCPCS: 29581; 36415; 51702; 71045; 80053; 81001; 82947; 83605; 83735; 83880; 84134; 84145; 84484; 85025; 85027; 85379; 87040; 87077; 87086; 87186; 93005; 93041; 93970; 94640; 94760; 97110; 97163; 97165; 97530; 97597; 97598; 99285; G0378; Q3014; J1650; J1817; A9270-GY

== ENCOUNTER 2023-11-13 13:41 | Emergency (ER) | payer MEDICARE ==
[2023-11-13 13:50] VITALS: TEMP 98.5
--- NOTE | 2023-11-13 14:26 | ERPHSYRPT ---
- History of Present Illness Time Seen by Provider: 11/13/23 14:23 Source: patient, EMS Exam Limitations: no limitations Patient Subjective Stated Complaint: PT states "I can't walk. My legs hurt and are weak." Triage Nursing Assessment: Pt presented alert and oriented X 3, skin pwd. Pt ambulates with an upright steady gait, able to speak in clear full sentences. Pt resting comfortably on the bed. Physician History: Patient is 67-year-old female with significant past medical history of COPD severe peripheral vascular disease hypertension CHF diabetes started having a weak spell and swelling on her leg with dryness in the foot and leg. She has a hard time walking. She is also short of breath. She denies any chest pain fever or chills. Timing/Duration: day(s) Severity: moderate Associated Symptoms: denies symptoms Allergies/Adverse Reactions: codeine Allergy (Intermediate, Verified 04/22/23 12:44) rash, itching cefaclor [From Ceclor] Allergy (Mild, Verified 04/22/23 12:44) Rash Penicillins Allergy (Mild, Verified 04/22/23 12:44) Swelling bacitracin [From Neosporin ([id number])] Adverse Reaction (Mild, Verified 04/22/23 12:44) Itching bacitracin zinc [From Neosporin ([id number])] Adverse Reaction (Mild, Verified 04/22/23 12:44) Itching levofloxacin [From Levaquin] Adverse Reaction (Mild, Verified 04/22/23 12:44) itch neomycin sulfate [From Neosporin ([id number]-swc-[id number])] Adverse Reaction (Mild, Verified 04/22/23 12:44) itch polymyxin B [From Neosporin ([id number]-[id number])] Adverse Reaction (Mild, Verified 04/22/23 12:44) Itching Home Medications: Ropinirole HCl 3 mg PO TID 01/23/23 [History] Atorvastatin Calcium [Lipitor] 20 mg PO DAILY 11/13/23 [History] Bumetanide 2 mg PO DAILY 11/13/23 [History] Glimepiride 1 mg PO DAILY 11/13/23 [History] Metformin HCl [Metformin ER Gastric] 500 mg PO DAILY 11/13/23 [History] Hx Tetanus, Diphtheria Vaccination/Date Given: No Hx Influenza Vaccination/Date Given: No Hx Pneumococcal Vaccination/Date Given: No Immunizations Up to Date: No Travel Risk - International Travel Have you traveled outside of the country in past 3 weeks: No - Coronavirus Screening Are you exhibiting any of the following symptoms?: No Close contact with a COVID-19 positive Pt in past 14-21 Days: No - Vaccine Status Have you recieved a Covid-19 vaccination: No - Review of Systems Constitutional: Lethargy, Weakness, No Fever, No Chills Eyes: No Symptoms Ears, Nose, & Throat: No Symptoms Respiratory: No Cough, No Dyspnea Cardiac: No Chest Pain, No Edema, No Syncope Abdominal/Gastrointestinal: No Abdominal Pain, No Nausea, No Vomiting, No Diarrhea Genitourinary Symptoms: No Dysuria Musculoskeletal: No Back Pain, No Neck Pain Skin: Dryness, No Rash Neurological: No Dizziness, No Focal Weakness, No Sensory Changes Psychological: No Symptoms Endocrine: No Symptoms All Other Systems: Reviewed and Negative - Past Medical History Pertinent Past Medical History: Yes Neurological History: No Pertinent History ENT History: No Pertinent History Cardiac History: Congestive Heart Failure, Hypertension, Peripheral Vascular Disease Respiratory History: COPD, Emphysema Endocrine Medical History: Diabetes Type II Musculoskeletal History: Arthritis, Fibromyalgia GI Medical History: No Pertinent History History: Other Psycho-Social History: No Pertinent History Female Reproductive Disorders: No Pertinent History Other Medical History: Stress Incontinence - Past Surgical History Past Surgical History: Yes Neuro Surgical History: No Pertinent History Cardiac: No Pertinent History Respiratory: No Pertinent History Gastrointestinal: Cholecystectomy Genitourinary: No Pertinent History Musculoskeletal: No Pertinent History Female Surgical History: Tubal Ligation - Social History Smoking Status: Current every day smoker How long have you smoked: 50 years Exposure to second hand smoke: Yes Drug Use: none Patient Lives Alone: No Significant Family History: no pertinent family hx - Nursing Vital Signs Nursing Vital Signs: Initial Vital Signs Temperature 98.5 F 11/13/23 13:42 Pulse Rate 94 H 11/13/23 13:42 Respiratory Rate 22 11/13/23 13:42 Blood Pressure 138/76 11/13/23 13:42 O2 Sat by Pulse Oximetry 94 L 11/13/23 13:42 Pain Scale Pain Intensity 0 - Physical Exam General Appearance: no apparent distress, alert, lethargy Eye Exam: PERRL/EOMI, eyes nml inspection Ears, Nose, Throat Exam: normal ENT inspection, TMs normal, pharynx normal, moist mucous membranes Neck Exam: normal inspection, non-tender, supple, full range of motion Respiratory Exam: crackles/rales, rhonchi, wheezing, No respiratory distress Cardiovascular Exam: regular rate/rhythm, normal heart sounds, normal peripheral pulses Gastrointestinal/Abdomen Exam: soft, normal bowel sounds, No tenderness, No mass Back Exam: normal inspection, normal range of motion, No CVA tenderness, No vertebral tenderness Extremity Exam: inflammation, pedal edema, swelling, No calf tenderness Neurologic Exam: alert, 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, cooperative, normal mood/affect, nml c erebellar function, nml station & gait, sensation nml, No motor deficits Skin Exam: normal color, warm, dry, No rash Lymphatic Exam: No adenopathy SpO2: 94 - Radiology Exams Chest X-ray Interpretation: Reviewed by me, Negative (COPD changes) Ordered Tests: Active Orders 24 hr Category Date Time Status EKG-ER Only STAT Care 11/13/23 13:48 Active CHEST 1 VIEW (PORTABLE) Stat Exams 11/13/23 13:48 Taken BLOOD CULTURE Stat Lab 11/13/23 14:26 Received CBC W DIFF Stat Lab 11/13/23 14:15 Completed CMP Stat Lab 11/13/23 14:15 Completed CULTURE,URINE Stat Lab 11/13/23 16:35 Received MAGNESIUM Stat Lab 11/13/23 16:37 Completed NT PRO BNPII Stat Lab 11/13/23 16:37 Completed TROPONIN Stat Lab 11/13/23 16:37 Completed UA W/RFX UR CULTURE Stat Lab 11/13/23 16:35 Completed Medication Summary Generic Name Dose Route Start Last Admin Trade Name Freq PRN Reason Stop Dose Admin Sodium Chloride 1,000 mls @ 100 mls/hr 11/13/23 14:00 Sodium Chloride 0.9% 1000 Ml IV 12/13/23 13:59 .Q10H FABRICIO Sodium Chloride 1,000 mls @ 100 mls/hr 11/13/23 16:30 Sodium Chloride 0.9% 1000 Ml IV 12/13/23 16:29 .Q10H FABRICIO Discontinued Medications Generic Name Dose Route Start Last Admin Trade Name Freq PRN Reason Stop Dose Admin Acetaminophen 500 mg 11/13/23 17:32 Acetaminophen 500 Mg Tablet PO 11/13/23 17:33 STAT STA Albuterol/Ipratropium 3 ml 11/13/23 16:25 Ipratropium/Albuterol Sulfate 3 Ml Ampul.Neb IH 11/13/23 16:26 STAT ONE Albuterol/Ipratropium Confirm 11/13/23 17:47 Ipratropium/Albuterol Sulfate 3 Ml Ampul.Neb Administered 11/13/23 17:48 Dose 3 ml IH .STK-MED ONE Ceftriaxone Sodium 1 gm in 100 mls @ 200 mls/hr 11/13/23 16:25 Rocephin 1 Gm / 100 Ml Nacl IV 11/13/23 16:54 STAT ONE Lab/Rad Data: Laboratory Result Diagrams 11/13/23 14:15 11/13/23 14:15 Laboratory Results 11/13/23 11/13/23 11/13/23 Range/Units 17:05 16:37 16:37 WBC (4.0-10.5) x10^3/uL RBC (4.1-5.4) x10^6/uL Hgb (12.0-16.0) g/dL Hct (35-47) % MCV (78-100) fL MCH (26-32) pg MCHC (32-36) g/dL RDW (11.5-14.0) % Plt Count (150-450) x10^3/uL MPV (7.5-11.0) fL Gran % (36.0-66.0) % Immature Gran % (Auto) (0.00-0.4) % Nucleat RBC Rel Count (0.00-0.1) % Eos # (Auto) (0-0.5) x10^3/uL Immature Gran # (Auto) (0.00-0.03) x10^3u/L Absolute Lymphs (auto) (1.0-4.6) x10^3/uL Absolute Monos (auto) (0.0-1.3) x10^3/uL Absolute Nucleated RBC (0.00-0.01) x10^3u/L Lymphocytes % (24.0-44.0) % Monocytes % (0.0-12.0) % Eosinophils % (0.00-5.0) % Basophils % (0.0-0.4) % Absolute Granulocytes (1.4-6.9) x10^3/uL Basophils # (0-0.4) x10^3/uL Sodium (135-145) mmol/L Potassium (3.5-5.1) mmol/L Chloride (98-107) mmol/L Carbon Dioxide (22-30) mmol/L Anion Gap (5-15) MEQ/L BUN (7-17) mg/dL Creatinine (0.52-1.04) mg/dL Estimated GFR ML/MIN Glucose (74-106) mg/dL Calcium (8.4-10.2) mg/dL Magnesium 2.4 H (1.6-2.3) mg/dL Total Bilirubin (0.2-1.3) mg/dL AST (14-36) U/L ALT (0-35) U/L Alkaline Phosphatase (38-126) U/L Troponin I < 0.012 (0.000-0.034) ng/mL NT-Pro-B Natriuret Pep 114 (<300) pg/mL Serum Total Protein (6.3-8.2) g/dL Albumin (3.5-5.0) g/dL Urine Color (Yellow) Urine Appearance (Clear) Urine pH (4.6-8.0) Ur Specific [place] (1.005-1.030) Urine Protein (Negative) Urine Glucose (UA) (Negative) mg/dL Urine Ketones (Negative) Urine Blood (Negative) Urine Nitrite (Negative) Urine Bilirubin (Negative) Urine Urobilinogen (0.2) mg/dL Ur Leukocyte Esterase (Negative) U Hyaline Cast (Auto) (0-2) /LPF Urine Microscopic RBC (0-5) /HPF Urine Microscopic WBC (0-5) /HPF Ur Epithelial Cells (None Seen) /HPF Urine Bacteria (None Seen) /HPF Urine Culture Reflexed (NO) Influenza Type A Ag NEGATIVE (NEGATIVE) Influenza Type B Ag NEGATIVE (NEGATIVE) RSV (PCR) NEGATIVE (NEGATIVE) SARS-CoV-2 (PCR) NEGATIVE (NEGATIVE) 11/13/23 11/13/23 11/13/23 Range/Units 16:35 14:15 14:15 WBC 9.9 (4.0-10.5) x10^3/uL RBC 3.88 L (4.1-5.4) x10^6/uL Hgb 10.9 L (12.0-16.0) g/dL Hct 38.7 (35-47) % MCV 99.7 (78-100) fL MCH 28.1 (26-32) pg MCHC 28.2 L (32-36) g/dL RDW 13.2 (11.5-14.0) % Plt Count 211 (150-450) x10^3/uL MPV 9.9 (7.5-11.0) fL Gran % 76.8 H (36.0-66.0) % Immature Gran % (Auto) 0.4 (0.00-0.4) % Nucleat RBC Rel Count 0.0 (0.00-0.1) % Eos # (Auto) 0.19 (0-0.5) x10^3/uL Immature Gran # (Auto) 0.04 H (0.00-0.03) x10^3u/L Absolute Lymphs (auto) 1.50 (1.0-4.6) x10^3/uL Absolute Monos (auto) 0.53 (0.0-1.3) x10^3/uL Absolute Nucleated RBC 0.00 (0.00-0.01) x10^3u/L Lymphocytes % 15.2 L (24.0-44.0) % Monocytes % 5.4 (0.0-12.0) % Eosinophils % 1.9 (0.00-5.0) % Basophils % 0.3 (0.0-0.4) % Absolute Granulocytes 7.60 H (1.4-6.9) x10^3/uL Basophils # 0.03 (0-0.4) x10^3/uL Sodium 145 (135-145) mmol/L Potassium 4.8 (3.5-5.1) mmol/L Chloride 94 L (98-107) mmol/L Carbon Dioxide 39 H (22-30) mmol/L Anion Gap 16.9 H (5-15) MEQ/L BUN 31 H (7-17) mg/dL Creatinine 0.60 (0.52-1.04) mg/dL Estimated GFR 98.3 ML/MIN Glucose 186 H (74-106) mg/dL Calcium 9.6 (8.4-10.2) mg/dL Magnesium (1.6-2.3) mg/dL Total Bilirubin 0.20 (0.2-1.3) mg/dL AST 17 (14-36) U/L ALT 18 (0-35) U/L Alkaline Phosphatase 68 (38-126) U/L Troponin I (0.000-0.034) ng/mL NT-Pro-B Natriuret Pep (<300) pg/mL Serum Total Protein 7.5 (6.3-8.2) g/dL Albumin 3.9 (3.5-5.0) g/dL Urine Color Yellow (Yellow) Urine Appearance Cloudy A (Clear) Urine pH 6.0 (4.6-8.0) Ur Specific [place] 1.015 (1.005-1.030) Urine Protein 100 A (Negative) Urine Glucose (UA) Negative (Negative) mg/dL Urine Ketones Negative (Negative) Urine Blood Negative (Negative) Urine Nitrite Negative (Negative) Urine Bilirubin Negative (Negative) Urine Urobilinogen 0.2 (0.2) mg/dL Ur Leukocyte Esterase Small A (Negative) U Hyaline Cast (Auto) NONE SEEN (0-2) /LPF Urine Microscopic RBC 0-2 (0-5) /HPF Urine Microscopic WBC 6-10 A (0-5) /HPF Ur Epithelial Cells Rare (None Seen) /HPF Urine Bacteria Many A (None Seen) /HPF Urine Culture Reflexed YES (NO) Influenza Type A Ag (NEGATIVE) Influenza Type B Ag (NEGATIVE) RSV (PCR) (NEGATIVE) SARS-CoV-2 (PCR) (NEGATIVE) - Progress Progress: improved Counseled pt/family regarding: lab results, diagnosis, need for follow-up, rad results, smoking cessation Medical Desision Making - Diagnostic Testing Diagnostic test were ordered, analyzed, and reviewed by me: Yes Radiological Interpretation: Reviewed by me - Risk of complications Low Risk: Low risk of morbidity from additional dx testing or treatment - Departure Departure Disposition: Home Clinical Impression: Chronic venous stasis dermatitis, Generalized weakness Urinary tract infection Qualifiers: Urinary tract infection type: acute pyelonephritis Qualified Code(s): N10 - Acute pyelonephritis COPD (chronic obstructive pulmonary disease) Qualifiers: COPD type: unspecified COPD Qualified Code(s): J44.9 - Chronic obstructive pulmonary disease, unspecified Condition: Stable Critical Care Time: No Referrals: DEB ESQUIVEL MD [Primary Care Provider] - Follow up/PCP as directed Instructions: Chronic Obstructive Pulmonary Disease, Urinary Tract Infection, Adult (DC) Additional Instructions: URINARY TRACT INFECTION 1. You will need to drink plenty of fluids in order to keep your urinary system flushed. These fluids should mainly consist of water and juices. 2. Take medications as directed. You need to completely finish any antiobiotic prescription given. 3. Try to avoid coffee, tea, alcohol, and seasoned foods as they may cause bladder irritation. 4. If signs and symptoms persist after 3-4 days, you will need to follow up with your family physician. 5. Female Patients: A. Avoid intercourse for 3-4 days. B. Empty bladder before and after intercourse to reduce risk of re- infection. C. After emptying bladder, wipe from front to back to reduce the risk of re- infection. Discharge/Care Plan AIRELLA HODGES was seen on 11/13/23 in the Emergency Room. The patient was counseled regarding Diagnosis,Lab results, Imaging studies, need for follow up and when to return to the Emergency Room. Prescriptions given: Discharge Note I have spoken with the patient and/or caregivers. I have explained the patient's condition, diagnosis and treatment plan based on the information available to me at this time. I have answered the patient's and/or caregiver's questions and addressed any concerns. The patient and/or caregivers have as good understanding of the patient's diagnosis, condition and treatment plan as can be expected at this point. The vital signs have been stable. The patient's condition is stable and appropriate for discharge from the emergency department. The patient will pursue further outpatient evaluation with the primary care physician or other designated or consulting physician as outlined in the discharge instructions. The patient and/or caregivers are agreeable to this plan of care and follow-up instructions have been explained in detail. The patient and/or caregivers have received these instruction. The patient/and or caregivers are aware that any significant change in condition or worsening of symptoms should prompt an immediate return to this or the closest emergency department or call 911. ARIELLA HODGES was seen on 11/13/23 n the Emergency Room. At that time you were treated for an emergent condition, during your visit Laboratory, Radiology and/or other procedures may have been ordered. It is very important that you follow-up with your Primary Care Physician DEB ESQUIVEL within the next 24-48 hours to review your Emergency Room visit and the final results of testing that was ordered. Some test results such as Urine Cultures, Blood Cultures, and other cultures if ordered will not be finalized for 24-48 hours. If you do not have a Primary Care Provider please call the medical records department at [phone] ext [phone] to obtain a copy of your results or you may sign into our patient portal to obtain these results by visiting us @ [email or web address] and completing the following steps: 1. Click on the Patient Portal link 2. Click the Patient Self Enrollment Link to complete the enrollment form and entering your 3. Once the enrollment form is completed you will receive an email with a temporary ID and password at the email address you provided. 4. Next choose a user name and password. Your user name must be at least 4 characters long and your password must be at least 4 characters long. 5. Choose a security question from the list and provide your answer to the question. If you already have signed into the Health Portal you may access your Health Care Information 29/03 by the following steps: 1. Login to our website @ [email or web address] 2. Enter your original user name and password. FAQS The [facility] Health Portal is an online tool that contains your Lab Results, Radiology Reports, Visit History, Discharge Instructions and Health Summary Lab and Radiology Results will not be available for 72 hours on the portal. The Portal is a secure site, passwords are encryted and URLs are re-written so they cannot be copied and pasted. You and authorized family members are the only ones who can access your Portal. Also there is a timeout feature that protects your information if you leave the Portal page open. If you have technical difficulty please use the Contact Us link on the page this will allow you to submit any questions you have regarding the Portal or you may contact the Medical Record Department at [phone] ext [phone]. Prescriptions: Ciprofloxacin [Cipro 500 MG] 500 mg PO BIDAC #14 tablet
[2023-11-13 14:38] LABS: BASOPHIL % 0.3 % (0.0-0.4); Basophil (Absolute #) 0.03 x10^3/uL (0-0.4); Eosinophil % 1.9 % (0.00-5.0); Eosinophil (Absolute #) 0.19 x10^3/uL (0-0.5); Hematocrit 38.7 % (35-47); Hemoglobin 10.9 g/dL (12.0-16.0); IMMATURE GRAN # 0.04 x10^3u/L (0.00-0.03); IMMATURE GRAN % 0.4 % (0.00-0.4); Lymphocytes % 15.2 % (24.0-44.0); Mean Cell Volume 99.7 fL (78-100); Mean Corpuscular Hemoglobin 28.1 pg (26-32); Mean Corpuscular Hgb Concent. 28.2 g/dL (32-36); Mean Platelet Volume 9.9 fL (7.5-11.0); Monocyte (Absolute #) 0.53 x10^3/uL (0.0-1.3); Monocytes % 5.4 % (0.0-12.0); Neutrophil % 76.8 % (36.0-66.0); Platelet Count 211 x10^3/uL (150-450); Red Blood Count 3.88 x10^6/uL (4.1-5.4); Red Cell Distribution Width 13.2 % (11.5-14.0); White Blood Count 9.9 x10^3/uL (4.0-10.5)
[2023-11-13 14:47] LABS: ALBUMIN 3.9 g/dL (3.5-5.0); ANION GAP 16.9 MEQ/L (5-15); BILIRUBIN,TOTAL 0.2 mg/dL (0.2-1.3); Calcium 9.6 mg/dL (8.4-10.2); Creatinine 1 0.6 mg/dL (0.52-1.04); EST GLOMERULAR FILTRATION RATE 98.3 ML/MIN; Potassium 4.8 mmol/L (3.5-5.1); Total Protein 7.5 g/dL (6.3-8.2)
[2023-11-13 16:48] LABS: Appearance Cloudy (Clear); Bacteria Many /HPF (None Seen); Bilirubin Negative (Negative); Blood Negative (Negative); Epithelial Cells Rare /HPF (None Seen); Glucose, Urine Negative (Negative); Hyaline Casts NONE SEEN /LPF (0-2); Ketones Negative (Negative); Leukocyte Esterase Small (Negative); Nitrite Negative (Negative); Protein,Urine Dip 100 (Negative); RBC 0-2 /HPF (0-5); Specific Gravity 1.015 (1.005-1.030); Urobilinogen 0.2 mg/dL (0.2)
[2023-11-13 16:53] LABS: MAGNESIUM 2.4 mg/dL (1.6-2.3); TROPONIN < 0.012 ng/mL (0.000-0.034)
[2023-11-13 17:00] LABS: ADD URINE CULTURE? YES (NO)
[2023-11-13 17:47] LABS: INFLUENZA A NEGATIVE (NEGATIVE); INFLUENZA B NEGATIVE (NEGATIVE); RESPIRATORY SYNCTIAL VIRUS NEGATIVE (NEGATIVE); SARS-CoV-2 Xpert Express NEGATIVE (NEGATIVE)
[2023-11-13] MEDS ORDERED: DUONEB 0.5-3 MG/3 ml Neb IH ONE (17:47)
[2023-11-13 17:54] VITALS: O2SAT 94
[2023-11-13 17:59] VITALS: BP 88/75; PULSE 97; RESP 27
[2023-11-13] MEDS: Sodium Chloride 0.9% 1000 ML 1,000 ML IV SCH ×2 (19:17→19:18)
[2023-11-13] MEDS: ROCEPHIN 1 GM / 100 ML NaCl 1 GM/100 ML IVPB IV ONE (19:17)
[2023-11-13] MEDS: TYLENOL EXTRA STRENGTH 500 MG PO STA (19:18)
[2023-11-13] MEDS ORDERED: Rocephin 1000 MG INJ ONE (19:22)
[2023-11-13] MEDS ORDERED: XYLOCAINE 1% HCL 20 ML MDV ONE (19:22)
[2023-11-13] MEDS: Rocephin 1000 MG INJ IM ONE (19:23)
[2023-11-13] MEDS: DUONEB 0.5-3 MG/3 ml Neb IH ONE (19:32)
[2023-11-13 19:34] LABS: Slide Review 1 YES
--- NOTE | 2023-11-13 20:05 | XRAY ---
Indication: Weakness. Comparison: April 22, 2023 Portable chest again demonstrates minimal left mid lower lung infiltrate/atelectasis. Right lung is now clear. Heart not enlarged. Bony thorax intact. No new cardiopulmonary abnormalities.
== END 2023-11-13 19:46 | disposition home or self-care (01) ==
LOC: ED 13:41
DX: R53.1 Weakness (principal); I87.2 Venous insufficiency (chronic) (peripheral); R60.0 Localized edema; N10 Acute pyelonephritis; J44.9 Chronic obstructive pulmonary disease, unspecified; F17.200 Nicotine dependence, unspecified, uncomplicated; I11.0 Hypertensive heart disease with heart failure; I50.9 Heart failure, unspecified; E11.9 Type 2 diabetes mellitus without complications; Z79.899 Other long term (current) drug therapy; Z20.828 Contact with and (suspected) exposure to other viral communicable diseases
CPT/HCPCS: 0241U; 36415; 71045; 80053; 81001; 83735; 83880; 84484; 85025; 87040; 87086; 93005; 96372; 99284; J0696; A9270-GY

== ENCOUNTER 2023-12-18 21:04 | Observation (INO) | payer MEDICARE ==
[2023-12-18 21:57] LABS: Absolute Neutrophil Ct (ANC) 7.55 x10^3/uL (1.4-6.9); BASOPHIL % 0.4 % (0.0-0.4); Basophil (Absolute #) 0.04 x10^3/uL (0-0.4); Eosinophil % 2.5 % (0.00-5.0); Eosinophil (Absolute #) 0.26 x10^3/uL (0-0.5); Hematocrit 38.5 % (35-47); Hemoglobin 11.2 g/dL (12.0-16.0); IMMATURE GRAN # 0.04 x10^3u/L (0.00-0.03); IMMATURE GRAN % 0.4 % (0.00-0.4); Lymphocyte (Absolute #) 1.82 x10^3/uL (1.0-4.6); Lymphocytes % 17.4 % (24.0-44.0); Mean Cell Volume 95.1 fL (78-100); Mean Corpuscular Hemoglobin 27.7 pg (26-32); Mean Corpuscular Hgb Concent. 29.1 g/dL (32-36); Mean Platelet Volume 10.1 fL (7.5-11.0); Monocyte (Absolute #) 0.72 x10^3/uL (0.0-1.3); Monocytes % 6.9 % (0.0-12.0); Neutrophil % 72.4 % (36.0-66.0); Platelet Count 297 x10^3/uL (150-450); Red Blood Count 4.05 x10^6/uL (4.1-5.4); Red Cell Distribution Width 12.9 % (11.5-14.0); White Blood Count 10.4 x10^3/uL (4.0-10.5)
--- NOTE | 2023-12-18 22:03 | ERPHSYRPT ---
- History of Present Illness Time Seen by Provider: 12/18/23 21:10 Source: patient Exam Limitations: no limitations Patient Subjective Stated Complaint: "Sores" Triage Nursing Assessment: +++ Physician History: 68yo f presents by EMS for rash on left buttock and posterior thigh that has been worsening over the past 4wks, has become painful in the past 2d. Pt does not know of any inciting event that started the rash. Pt does not report that the rash is itchy, but states the pain is what is bothering her most. Pt denies any fevers. Pt recently completely dose of clindamycin for UTI w/in the past 2wks. Pt is very unkempt, dried feces present under her finger nails, pt also had BM in her pants in transit to ED. Pt currently denies cp, soa, n/v/abdominal pain. Allergies/Adverse Reactions: codeine Allergy (Intermediate, Verified 12/18/23 21:06) rash, itching cefaclor [From Ceclor] Allergy (Mild, Verified 12/18/23 21:06) Rash Penicillins Allergy (Mild, Verified 12/18/23 21:06) Swelling bacitracin [From Neosporin ([id number])] Adverse Reaction (Mild, Verified 12/18/23 21:06) Itching bacitracin zinc [From Neosporin (thm-[id number]-[id number])] Adverse Reaction (Mild, Verified 12/18/23 21:06) Itching levofloxacin [From Levaquin] Adverse Reaction (Mild, Verified 12/18/23 21:06) itch neomycin sulfate [From Neosporin ([id number]-[id number]-[id number])] Adverse Reaction (Mild, Verified 12/18/23 21:06) itch polymyxin B [From Neosporin (klx-rvt-rinzx)] Adverse Reaction (Mild, Verified 12/18/23 21:06) Itching Home Medications: Ropinirole HCl 3 mg PO TID 01/23/23 [History] Atorvastatin Calcium [Lipitor] 20 mg PO DAILY 11/13/23 [History] Bumetanide 2 mg PO DAILY 11/13/23 [History] Glimepiride 1 mg PO DAILY 11/13/23 [History] Metformin HCl [Metformin ER Gastric] 500 mg PO DAILY 11/13/23 [History] Hx Tetanus, Diphtheria Vaccination/Date Given: Yes Hx Influenza Vaccination/Date Given: No Hx Pneumococcal Vaccination/Date Given: No Travel Risk - International Travel Have you traveled outside of the country in past 3 weeks: No - Emerging Infectious Disease Are you exhibiting symptoms associated with any current EIDs: No - Past Medical History Pertinent Past Medical History: Yes Neurological History: No Pertinent History ENT History: No Pertinent History Cardiac History: Congestive Heart Failure, Hypertension, Peripheral Vascular Disease Respiratory History: COPD, Emphysema Endocrine Medical History: Diabetes Type II Musculoskeletal History: Fibromyalgia GI Medical History: No Pertinent History History: Other Psycho-Social History: No Pertinent History Female Reproductive Disorders: No Pertinent History Other Medical History: Stress Incontinence - Past Surgical History Past Surgical History: Yes Neuro Surgical History: No Pertinent History Cardiac: No Pertinent History Respiratory: No Pertinent History Gastrointestinal: Cholecystectomy Genitourinary: No Pertinent History Musculoskeletal: No Pertinent History Female Surgical History: Tubal Ligation Significant Family History: no pertinent family hx - Social History Smoking Status: Current every day smoker How long have you smoked: 50 years Exposure to second hand smoke: Yes Drug Use: none Patient Lives Alone: No - Nursing Vital Signs Nursing Vital Signs: Initial Vital Signs Temperature 99.7 F 12/18/23 21:05 Pulse Rate 107 H 12/18/23 21:05 Respiratory Rate 20 12/18/23 21:05 Blood Pressure 122/88 12/18/23 21:05 O2 Sat by Pulse Oximetry 97 12/18/23 21:05 Pain Scale Pain Intensity 4 - Physical Exam SpO2: 94 Ordered Tests: Active Orders 24 hr Category Date Time Status CBC W DIFF Stat Lab 12/18/23 21:50 Completed CMP Stat Lab 12/18/23 21:50 Completed Lactic Acid Stat Lab 12/18/23 21:35 Completed Medication Summary Discontinued Medications Generic Name Dose Route Start Last Admin Trade Name Jorge PRN Reason Stop Dose Admin Acetaminophen 500 mg 12/18/23 22:53 12/18/23 23:00 Acetaminophen 500 Mg Tablet PO 12/18/23 22:54 500 mg STAT STA Administration Acetaminophen Confirm 12/18/23 22:59 Acetaminophen 500 Mg Tablet Administered 12/18/23 23:00 Dose 500 mg .ROUTE .STmyEDmatch-MED ONE Lab/Rad Data: Laboratory Result Diagrams 12/18/23 21:50 12/18/23 21:50 Laboratory Results 04/13/24 04/13/24 04/13/24 Range/Units 21:50 21:50 21:35 WBC 10.4 (4.0-10.5) x10^3/uL RBC 4.05 L (4.1-5.4) x10^6/uL Hgb 11.2 L (12.0-16.0) g/dL Hct 38.5 (35-47) % MCV 95.1 (78-100) fL MCH 27.7 (26-32) pg MCHC 29.1 L (32-36) g/dL RDW 12.9 (11.5-14.0) % Plt Count 297 (150-450) x10^3/uL MPV 10.1 (7.5-11.0) fL Gran % 72.4 H (36.0-66.0) % Immature Gran % (Auto) 0.4 (0.00-0.4) % Nucleat RBC Rel Count 0.0 (0.00-0.1) % Eos # (Auto) 0.26 (0-0.5) x10^3/uL Immature Gran # (Auto) 0.04 H (0.00-0.03) x10^3u/L Absolute Lymphs (auto) 1.82 (1.0-4.6) x10^3/uL Absolute Monos (auto) 0.72 (0.0-1.3) x10^3/uL Absolute Nucleated RBC 0.00 (0.00-0.01) x10^3u/L Lymphocytes % 17.4 L (24.0-44.0) % Monocytes % 6.9 (0.0-12.0) % Eosinophils % 2.5 (0.00-5.0) % Basophils % 0.4 (0.0-0.4) % Absolute Granulocytes 7.55 H (1.4-6.9) x10^3/uL Basophils # 0.04 (0-0.4) x10^3/uL Sodium 136 (135-145) mmol/L Potassium 5.0 (3.5-5.1) mmol/L Chloride 101 (98-107) mmol/L Carbon Dioxide 34 H (22-30) mmol/L Anion Gap 6.8 (5-15) MEQ/L BUN 26 H (7-17) mg/dL Creatinine 0.58 (0.52-1.04) mg/dL Estimated GFR 98.5 ML/MIN Glucose 199 H (74-106) mg/dL Lactic Acid 1.2 (0.4-2.0) Calcium 9.7 (8.4-10.2) mg/dL Total Bilirubin 0.10 L (0.2-1.3) mg/dL AST 24 (14-36) U/L ALT 29 (0-35) U/L Alkaline Phosphatase 67 (38-126) U/L Serum Total Protein 6.4 (6.3-8.2) g/dL Albumin 3.2 L (3.5-5.0) g/dL - Progress Progress: improved Progress Note: 12/19/23 00:31 pt states pain has improved, still reports feeling weak discussed admission for obs w/ Dr Robel Jose who accepts plan to admit for weakness, deconditioning Will see patient in: hospital (observation) Counseled pt/family regarding: lab results, diagnosis, need for follow-up Medical Desision Making - Discussion of managment Care discussed with:: hospitalist Reviewed:: Test results, Need for additional workup Agreed on:: place in obs Will see patient: in hospital - Diagnostic Testing Diagnostic test were ordered, analyzed, and reviewed by me: No - Risk of complications The pt has a high risk of morbidity or mortality based on: Decision regarding hospitilization or escalation of hosp level of care - Departure Departure Disposition: Observation Clinical Impression: Dermatitis, Physical deconditioning, Weakness Condition: Stable Critical Care Time: No Referrals: DEB ESQUIVEL MD [Primary Care Provider] - Follow up/PCP as directed
[2023-12-18 22:18] LABS: ALBUMIN 3.2 g/dL (3.5-5.0); ANION GAP 6.8 MEQ/L (5-15); BILIRUBIN,TOTAL 0.1 mg/dL (0.2-1.3); Calcium 9.7 mg/dL (8.4-10.2); Creatinine 1 0.58 mg/dL (0.52-1.04); EST GLOMERULAR FILTRATION RATE 98.5 ML/MIN; Total Protein 6.4 g/dL (6.3-8.2)
[2023-12-18] MEDS ORDERED: TYLENOL EXTRA STRENGTH 500 MG ONE (22:59)
[2023-12-18] MEDS: TYLENOL EXTRA STRENGTH 500 MG PO STA (23:00)
--- NOTE | 2023-12-19 00:30 | PCM.HP ---
History of Present Illness - Chief Complaint Chief Complaint: Deconditioning History of Present Illness: is a 68 year old female who presents with deconditioning and inability to take care of herself. She has a rash on her left buttock and posterior thigh. No fever. Pt is very unkempt and per ED had dried feces present under her finger nails, and also had BM in her pants in transit to ED. Pt currently denies cp, soa, n/v/abdominal pain. Unable to go home due to weakness and deconditioning. - Review of Systems Constitutional: No Fever, No Chills Eyes: No Symptoms Ears, Nose, & Throat: No Symptoms Respiratory: No Cough, No Short Of Breath Cardiac: No Chest Pain, No Edema, No Syncope Abdominal/Gastrointestinal: No Abdominal Pain, No Nausea, No Vomiting, No Diarrhea Genitourinary Symptoms: No Dysuria Musculoskeletal: No Back Pain, No Neck Pain Skin: No Rash Neurological: No Dizziness, No Focal Weakness, No Sensory Changes Psychological: No Symptoms Endocrine: No Symptoms Hematologic/Lymphatic: No Symptoms Immunological/Allergic: No Symptoms Medications & Allergies Home Medications: Home Medication List Ropinirole HCl 3 mg PO TID 01/23/23 [History Confirmed 11/13/23] Acetaminophen 325 mg [Tylenol 325 mg] 650 mg PO Q4H PRN PRN tablet 04/26/23 [Rx Confirmed 11/13/23] Calcium Carbonate 750 mg [Tums EX 750 MG] 750 mg PO TIDPRN PRN tablet 04/26/23 [Rx Confirmed 11/13/23] Lactobacillus Acidophilus [Acidophilus TABLET] 1 tab PO DAILY tablet 04/26/23 [Rx Confirmed 11/13/23] Losartan Potassium 50 mg [Cozaar 50 MG] 50 mg PO DAILY 30 Days #30 tablet 04/26/23 [Rx Confirmed 11/13/23] Atorvastatin Calcium [Lipitor] 20 mg PO DAILY 11/13/23 [History Confirmed 11/13/23] Bumetanide 2 mg PO DAILY 11/13/23 [History Confirmed 11/13/23] Ciprofloxacin [Cipro 500 MG] 500 mg PO BIDAC #14 tablet 11/13/23 [Rx] Glimepiride 1 mg PO DAILY 11/13/23 [History Confirmed 11/13/23] Metformin HCl [Metformin ER Gastric] 500 mg PO DAILY 11/13/23 [History Confirmed 11/13/23] Allergies/Adverse Reactions: Allergies Allergy/AdvReac Type Severity Reaction Status Date / Time codeine Allergy Intermediate rash, Verified 12/18/23 21:06 itching cefaclor [From Ceclor] Allergy Mild Rash Verified 12/18/23 21:06 Penicillins Allergy Mild Swelling Verified 12/18/23 21:06 bacitracin AdvReac Mild Itching Verified 12/18/23 21:06 [From Neosporin ([id number])] bacitracin zinc AdvReac Mild Itching Verified 12/18/23 21:06 [From Neosporin ([id number])] levofloxacin [From Levaquin] AdvReac Mild itch Verified 12/18/23 21:06 neomycin sulfate AdvReac Mild itch Verified 12/18/23 21:06 [From Neosporin ([id number])] polymyxin B AdvReac Mild Itching Verified 12/18/23 21:06 [From Neosporin ([id number])] - Past Medical History Past Medical History: Yes Neurological History: No Pertinent History ENT History: No Pertinent History Cardiac History: Congestive Heart Failure, Hypertension, Peripheral Vascular Disease Respiratory History: COPD, Emphysema Endocrine Medical History: Diabetes Type II Musculoskelatal History: Fibromyalgia GI Medical History: No Pertinent History History: Other Pyscho-Social History: No Pertinent History Reproductive Disorders: No Pertinent History Comment: Stress Incontinence - Past Surgical History Past Surgical History: Yes Neuro Surgical History: No Pertinent History Cardiac History: No Pertinent History Respiratory Surgery: No Pertinent History GI Surgical History: Cholecystectomy Genitourinary Surgical Hx: No Pertinent History Musculskeletal Surgical Hx: No Pertinent History Female Surgical History: Tubal Ligation Significant Family History: no pertinent family hx - Social History Smoking Status: Current every day smoker How long have you smoked: 50 years Exposure to second hand smoke: Yes Alcohol: None Drug Use: none - Social Determinants of Health Will the patient participate in the screening: Yes Do you worry about a steady place to live?: No Do you have any problems with any of the following?: No known problems In the past 12 months,have you had to go without utilities?: No Have you or anyone in your house had to go without enough: No Transportation Issues: No Has anyone in your support network made you feel unsafe?: No - Physical Exam Vital Signs: Vital Signs - 24 hr Temp Pulse Resp BP BP Pulse Ox 12/18/23 23:00 92 H 22 152/65 94 L 12/18/23 22:30 92 H 16 160/93 97 12/18/23 22:02 94 L 12/18/23 22:00 103 H 20 172/65 95 12/18/23 21:37 94 L 12/18/23 21:30 127/83 12/18/23 21:05 99.7 F 107 H 20 122/88 97 General Appearance: no apparent distress, alert Neurologic Exam: alert, 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, cooperative, normal mood/affect, nml cerebellar function, nml station & gait, sensation nml, No motor deficits Eye Exam: PERRL/EOMI, eyes nml inspection Ears, Nose, Throat Exam: normal ENT inspection, TMs normal, pharynx normal, moist mucous membranes Neck Exam: normal inspection, non-tender, supple, full range of motion Respiratory Exam: normal breath sounds, lungs clear, No respiratory distress Cardiovascular Exam: regular rate/rhythm, normal heart sounds, normal peripheral pulses Gastrointestinal/Abdomen Exam: soft, normal bowel sounds, No tenderness, No mass Back Exam: normal inspection, normal range of motion, No CVA tenderness, No vertebral tenderness Extremity Exam: normal inspection, normal range of motion, pelvis stable Skin Exam: normal color, warm, dry, No rash Lymphatic Exam: No adenopathy Results - Labs Lab/Micro Results: Lab Results-Last 24 Hours 12/18/23 12/18/23 12/18/23 Range/Units 21:35 21:50 21:50 WBC 10.4 (4.0-10.5) x10^3/uL RBC 4.05 L (4.1-5.4) x10^6/uL Hgb 11.2 L (12.0-16.0) g/dL Hct 38.5 (35-47) % MCV 95.1 (78-100) fL MCH 27.7 (26-32) pg MCHC 29.1 L (32-36) g/dL RDW 12.9 (11.5-14.0) % Plt Count 297 (150-450) x10^3/uL MPV 10.1 (7.5-11.0) fL Gran % 72.4 H (36.0-66.0) % Immature Gran % (Auto) 0.4 (0.00-0.4) % Nucleat RBC Rel Count 0.0 (0.00-0.1) % Eos # (Auto) 0.26 (0-0.5) x10^3/uL Immature Gran # (Auto) 0.04 H (0.00-0.03) x10^3u/L Absolute Lymphs (auto) 1.82 (1.0-4.6) x10^3/uL Absolute Monos (auto) 0.72 (0.0-1.3) x10^3/uL Absolute Nucleated RBC 0.00 (0.00-0.01) x10^3u/L Lymphocytes % 17.4 L (24.0-44.0) % Monocytes % 6.9 (0.0-12.0) % Eosinophils % 2.5 (0.00-5.0) % Basophils % 0.4 (0.0-0.4) % Absolute Granulocytes 7.55 H (1.4-6.9) x10^3/uL Basophils # 0.04 (0-0.4) x10^3/uL Sodium 136 (135-145) mmol/L Potassium 5.0 (3.5-5.1) mmol/L Chloride 101 (98-107) mmol/L Carbon Dioxide 34 H (22-30) mmol/L Anion Gap 6.8 (5-15) MEQ/L BUN 26 H (7-17) mg/dL Creatinine 0.58 (0.52-1.04) mg/dL Estimated GFR 98.5 ML/MIN Glucose 199 H (74-106) mg/dL Lactic Acid 1.2 (0.4-2.0) Calcium 9.7 (8.4-10.2) mg/dL Total Bilirubin 0.10 L (0.2-1.3) mg/dL AST 24 (14-36) U/L ALT 29 (0-35) U/L Alkaline Phosphatase 67 (38-126) U/L Serum Total Protein 6.4 (6.3-8.2) g/dL Albumin 3.2 L (3.5-5.0) g/dL Assessment/Plan (1) Physical deconditioning Current Visit: Yes Status: Acute Code(s): R53.81 - OTHER MALAISE (2) Physical deconditioning Current Visit: Yes Status: Acute Assessment & Plan: 1. Admit as patient is very weak and unkempt and is unwilling to go back home tonight from the ED 2. Will not start abx for the rash as it does not appear to be cellulitis 3. Social work consult in the AM Code(s): R53.81 - OTHER MALAISE Telemedicine Encounter - Telemedicine Encounter Telemedicine Encounter: The entirety of this encounter was performed via Telemedicine"
--- NOTE | 2023-12-19 08:33 | XRAY ---
CLINICAL HISTORY: increased o2 demand COMPARISON: X-ray dated 11/13/2023. TECHNIQUE: X-ray chest showing 1 view: AP view. FINDINGS: Newly appreciated linear thick density in the left middle lung zone, could represent fissural effusion or thick atelectatic band. Newly appreciated left mid and upper zonal peripherally-based linear thin densities could represent interstitial edema or atelectatic bands. The left costophrenic angle is blurred yet not blunted. Clear right costophrenic angle. Evaluation of the cardiac size is limited given an AP projection. Atherosclerotic calcification of the aortic arch. No acute osseous pathology. IMPRESSION: 1. Newly appreciated linear thick density in the left middle lung zone, could represent fissural effusion or thick atelectatic band. 2. Newly appreciated left mid and upper zonal peripherally-based linear thin densities could represent interstitial edema or atelectatic bands. 3. Evaluation of the cardiac size is limited given an AP projection. 4. The left costophrenic angle is blurred yet not blunted, possible left minimal pleural effusion. Electronically Signed by: aRyne Abernathy MD. (12/19/2023 08:29:34 EDT)
[2023-12-19 09:03] LABS: Hematocrit 36.7 % (35-47); Hemoglobin 10.9 g/dL (12.0-16.0); Mean Cell Volume 92.2 fL (78-100); Mean Corpuscular Hemoglobin 27.4 pg (26-32); Mean Corpuscular Hgb Concent. 29.7 g/dL (32-36); Platelet Count 285 x10^3/uL (150-450); Red Blood Count 3.98 x10^6/uL (4.1-5.4); White Blood Count 7.8 x10^3/uL (4.0-10.5)
[2023-12-19 09:12] LABS: ALBUMIN 3.3 g/dL (3.5-5.0); ANION GAP 6.9 MEQ/L (5-15); BILIRUBIN,TOTAL 0.1 mg/dL (0.2-1.3); Creatinine 1 0.74 mg/dL (0.52-1.04); EST GLOMERULAR FILTRATION RATE 88.1 ML/MIN; Potassium 4.3 mmol/L (3.5-5.1); Total Protein 6.7 g/dL (6.3-8.2)
[2023-12-19] MEDS ORDERED: Tums EX 750 MG PO PRN (11:07)
[2023-12-19] MEDS ORDERED: TYLENOL 325 MG PO PRN (11:07)
[2023-12-19] MEDS: Cozaar 50 MG PO SCH (11:53)
[2023-12-19] MEDS: Amaryl 2 MG PO SCH (11:53)
[2023-12-19] MEDS: CLINDAMYCIN-D5W 600 MG/50 ML*** 600 MG/50 ML BAG IV SCH (11:53)
[2023-12-19] MEDS: Glucophage 500 MG PO SCH (11:53)
[2023-12-19] MEDS: Acidophilus TABLET PO SCH (11:53)
[2023-12-19] MEDS ORDERED: Cleocin Phosphate IV 600 MG/4 ML IV SCH (12:00)
[2023-12-19] MEDS ORDERED: NON-FORMULARY ITEM (Ropinirole Hcl [Ropinirole Hcl] 3 MG Tablet) PO SCH (15:00)
[2023-12-19] MEDS: REQUIP 2MG TAB PO SCH (15:03)
[2023-12-19] MEDS: TYLENOL 325 MG PO PRN (15:04)
[2023-12-19] MEDS: Vibramycin 100 MG PO SCH (19:29)
[2023-12-19] MEDS: ZOCOR 20MG PO SCH (22:14)
[2023-12-20 04:54] LABS: Hematocrit 34.4 % (35-47); Hemoglobin 10.2 g/dL (12.0-16.0); Mean Cell Volume 93.2 fL (78-100); Mean Corpuscular Hemoglobin 27.6 pg (26-32); Mean Corpuscular Hgb Concent. 29.7 g/dL (32-36); Mean Platelet Volume 10.4 fL (7.5-11.0); Platelet Count 272 x10^3/uL (150-450); Red Blood Count 3.69 x10^6/uL (4.1-5.4); Red Cell Distribution Width 13.2 % (11.5-14.0)
[2023-12-20 05:14] LABS: ALBUMIN 3.1 g/dL (3.5-5.0); ANION GAP 5.1 MEQ/L (5-15); BILIRUBIN,TOTAL 0.1 mg/dL (0.2-1.3); Calcium 8.8 mg/dL (8.4-10.2); Creatinine 1 0.81 mg/dL (0.52-1.04); Potassium 4.3 mmol/L (3.5-5.1); Total Protein 6.4 g/dL (6.3-8.2)
--- NOTE | 2023-12-20 05:14 | PCM.NOTE ---
Date and Time: 12/20/23 0506 Subjective Assessment: Ms. Sanz is a 68 year old female that was admitted to [facility] on 12/18/23 experiencing symptoms of a painful rash on the left buttock and posterior thigh for the past four weeks and diagnosed with cellulitis and physical deconditioning. Being treated with clindamycin. Physical therapy consulted for evaluation. 12/19: Met and examined patient bedside. Endorses pain to left buttock and thigh has improved. Weakness is somewhat improved. PT to work with patient today. Unable to care for herself at home. Will need rehab at discharge. CM is working on this. - Review of Systems Constitutional: No Symptoms Eyes: No Symptoms Respiratory: No Symptoms Cardiac: No Symptoms Abdominal/Gastrointestinal: No Symptoms Genitourinary Symptoms: Incontinence Musculoskeletal: No Symptoms Skin: Cellulitis (Left buttock and posterior thigh, scabbing ) Neurological: No Symptoms Psychological: No Symptoms Endocrine: No Symptoms Hematologic/Lymphatic: No Symptoms Immunological/Allergic: No Symptoms Objective Exam General Appearance: no apparent distress Neurologic Exam: alert, 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, cooperative Skin Exam: rash (Left buttock to mid left thigh, dermatitis) Wound Assessment: Skin/Wound Assessment Wound/Incision Assessment Start: 12/19/23 02:36 Text: Status: Active Freq: Q6H Protocol: Document 12/20/23 02:00 MM (Rec: 12/20/23 02:20 MM [id number]) Wound Photo Photo Taken Yes Eye Exam: PERRL Ears, Nose, Throat Exam: normal ENT inspection Neck Exam: normal inspection Lymphatic Exam: adenopathy Respiratory Exam: normal breath sounds, lungs clear Cardiovascular Exam: regular rate/rhythm, normal heart sounds Gastrointestinal/Abdomen Exam: soft, normal bowel sounds Extremity Exam: normal inspection Back Exam: normal inspection Pelvic Exam: deferred Rectal Exam: deferred Objective Data Vital Signs: Vital Signs - 24 hr Temp Pulse Resp BP Pulse Ox 12/20/23 03:58 98.5 F 87 18 135/63 94 L 12/20/23 00:00 98.4 F 91 H 20 113/51 97 12/19/23 19:44 98.8 F 87 16 113/57 99 12/19/23 18:43 92 L 12/19/23 15:05 97.6 F 90 16 138/63 92 L 12/19/23 14:31 95 12/19/23 11:21 97.9 F 84 16 135/60 96 12/19/23 07:45 94 L 12/19/23 07:37 97 12/19/23 07:01 98.0 F 98 H 16 138/72 92 L Pain Assessment - Last Documented Pain Intensity 0 Pain Scale Used 0-10 Pain Scale Intake and Output: Intake & Output 12/17/23 12/18/23 12/19/23 12/20/23 11:59 11:59 11:59 11:59 Intake Total 380 1200 Balance 380 1200 Weight 93.2 kg Lab Results: Lab Results-Last 24 Hours 12/19/23 12/19/23 12/20/23 Range/Units 08:30 08:30 04:10 WBC 7.8 8.0 (4.0-10.5) x10^3/uL RBC 3.98 L 3.69 L (4.1-5.4) x10^6/uL Hgb 10.9 L 10.2 L (12.0-16.0) g/dL Hct 36.7 34.4 L (35-47) % MCV 92.2 93.2 (78-100) fL MCH 27.4 27.6 (26-32) pg MCHC 29.7 L 29.7 L (32-36) g/dL RDW 13.0 13.2 (11.5-14.0) % Plt Count 285 272 (150-450) x10^3/uL MPV 10.0 10.4 (7.5-11.0) fL Sodium 138 (135-145) mmol/L Potassium 4.3 (3.5-5.1) mmol/L Chloride 100 (98-107) mmol/L Carbon Dioxide 35 H (22-30) mmol/L Anion Gap 6.9 (5-15) MEQ/L BUN 22 H (7-17) mg/dL Creatinine 0.74 (0.52-1.04) mg/dL Estimated GFR 88.1 ML/MIN Glucose 194 H (74-106) mg/dL Calcium 9.0 (8.4-10.2) mg/dL Total Bilirubin 0.10 L (0.2-1.3) mg/dL AST 21 (14-36) U/L ALT 28 (0-35) U/L Alkaline Phosphatase 62 (38-126) U/L Serum Total Protein 6.7 (6.3-8.2) g/dL Albumin 3.3 L (3.5-5.0) g/dL Radiology Exams: Radiology Procedures Category Date Time Status CHEST 1 VIEW (PORTABLE) Routine Exams 12/19/23 07:44 Completed Assessment/Plan (1) Cellulitis Current Visit: Yes Status: Acute Assessment & Plan: -most likely secondary to incontinence ? dermatitis -culture any wounds/drainage -Start PO clindamycin Code(s): L03.90 - CELLULITIS, UNSPECIFIED (2) COPD (chronic obstructive pulmonary disease) Current Visit: Yes Status: Acute Assessment & Plan: -Chronic - does not appear to be in exacerbation - BL O2 requirement 6LNC - currently on 6LNC -supplemental oxygen with goal spo2 > 88-92% - RT eval and treat (3) HTN (hypertension) Current Visit: Yes Status: Acute Assessment & Plan: -stable continue home medication Code(s): I10 - ESSENTIAL (PRIMARY) HYPERTENSION (4) Physical deconditioning Current Visit: Yes Status: Acute Assessment & Plan: -RT evaluation -CM for placement, patient agreeable -Chronic - worsening - Patient requesting rehab as she is not able to care for herself at home without help with ADLs Code(s): R53.81 - OTHER MALAISE (5) Type 2 diabetes mellitus Current Visit: No Status: Chronic Qualifiers: Diabetes mellitus tour agent insulin use: without tour agent use Assessment & Plan: -continue home meds metformin/glimepriride
[2023-12-20 08:19] VITALS: TEMP 98.2
[2023-12-20] MEDS ORDERED: NON-FORMULARY ITEM (Bumetanide [Bumetanide] 2 MG Tablet) PO SCH (10:00)
[2023-12-20] MEDS ORDERED: NON-FORMULARY ITEM (Atorvastatin Calcium [Lipitor] 20 MG Tablet) PO SCH (10:00)
[2023-12-20] MEDS ORDERED: METFORMIN HCL 500 MG PO SCH (10:00)
[2023-12-20] MEDS ORDERED: NON-FORMULARY ITEM (Glimepiride [Glimepiride] 1 MG Tablet) PO SCH (10:00)
[2023-12-20] MEDS: BUMEX 1 MG PO SCH (10:20)
[2023-12-20 12:15] VITALS: BP 124/58; PULSE 89; RESP 21; O2SAT 93
--- NOTE | 2023-12-20 14:48 | PCM.DS ---
Discharge Summary Date of Admission: 12/19/23 01:15 Date of Discharge: 12/20/23 Admitting Physician: JULEE AQUINO MD Primary Care Provider: DEB ESQUIVEL Allergies Allergies codeine Allergy (Intermediate, Verified 12/18/23 21:06) rash, itching cefaclor [From Ceclor] Allergy (Mild, Verified 12/18/23 21:06) Rash Penicillins Allergy (Mild, Verified 12/18/23 21:06) Swelling bacitracin [From Neosporin ([id number]-[id number])] Adverse Reaction (Mild, Verified 12/18/23 21:06) Itching bacitracin zinc [From Neosporin ([id number]-[id number])] Adverse Reaction (Mild, Verified 12/18/23 21:06) Itching levofloxacin [From Levaquin] Adverse Reaction (Mild, Verified 12/18/23 21:06) itch neomycin sulfate [From Neosporin ([id number])] Adverse Reaction (Mild, Verified 12/18/23 21:06) itch polymyxin B [From Neosporin ([id number]-atz-[id number])] Adverse Reaction (Mild, Verified 12/18/23 21:06) Itching Hospital Summary - Hospital Course Hospital Course: Ms. Sanz is a 68 year old female that was admitted to [facility] on 12/18/23 experiencing symptoms of a painful rash on the left buttock and posterior thigh for the past four weeks and diagnosed with cellulitis and physical d econditioning. Being treated with clindamycin. Patient will discharge to SNF today with oral clindamycin, advised follow up with pcp. Discharge Note Latest Assessment & Plan (1) Cellulitis Current Visit: Yes Status: Acute Assessment & Plan: -most likely secondary to incontinence ? dermatitis -culture any wounds/drainage -Start PO clindamycin Code(s): L03.90 - CELLULITIS, UNSPECIFIED (2) COPD (chronic obstructive pulmonary disease) Current Visit: Yes Status: Acute Assessment & Plan: -Chronic - does not appear to be in exacerbation - BL O2 requirement 6LNC - currently on 6LNC -supplemental oxygen with goal spo2 > 88-92% - RT eval and treat (3) HTN (hypertension) Current Visit: Yes Status: Acute Assessment & Plan: -stable continue home medication Code(s): I10 - ESSENTIAL (PRIMARY) HYPERTENSION (4) Physical deconditioning Current Visit: Yes Status: Acute Assessment & Plan: -RT evaluation -CM for placement, patient agreeable -Chronic - worsening - Patient requesting rehab as she is not able to care for herself at home without help with ADLs Code(s): R53.81 - OTHER MALAISE (5) Type 2 diabetes mellitus Current Visit: No Status: Chronic Qualifiers: Diabetes mellitus continuous churn buttermaker insulin use: without continuous churn buttermaker use Assessment & Plan: -continue home meds metformin/glimepriride I spent 35 minutes [id number] with the patient on the day of discharge performing discharge exam, discussing hospital stay and discharge instructions with patient and caregivers, preparation of discharge records, prescriptions & referral forms and addressing any questions/concerns the patient had as documented above. - Vitals & Intake/Output Vital Signs: Vital Signs Temperature 98.2 F 12/20/23 12:00 Pulse Rate 89 12/20/23 12:00 Respiratory Rate 21 12/20/23 12:00 Blood Pressure 124/58 12/20/23 12:00 O2 Sat by Pulse Oximetry 93 L 12/20/23 12:00 Intake & Output: Intake & Output 12/18/23 12/19/23 12/20/23 12/21/23 11:59 11:59 11:59 11:59 Intake Total 380 1260 120 Balance 380 1260 120 Weight 93.2 kg - Lab Result Diagrams: 12/20/23 04:10 12/20/23 04:10 Lab Results-Last 24 Hrs: Lab Results-Last 24 Hours 12/20/23 12/20/23 Range/Units 04:10 04:10 WBC 8.0 (4.0-10.5) x10^3/uL RBC 3.69 L (4.1-5.4) x10^6/uL Hgb 10.2 L (12.0-16.0) g/dL Hct 34.4 L (35-47) % MCV 93.2 (78-100) fL MCH 27.6 (26-32) pg MCHC 29.7 L (32-36) g/dL RDW 13.2 (11.5-14.0) % Plt Count 272 (150-450) x10^3/uL MPV 10.4 (7.5-11.0) fL Sodium 139 (135-145) mmol/L Potassium 4.3 (3.5-5.1) mmol/L Chloride 100 (98-107) mmol/L Carbon Dioxide 39 H (22-30) mmol/L Anion Gap 5.1 (5-15) MEQ/L BUN 24 H (7-17) mg/dL Creatinine 0.81 (0.52-1.04) mg/dL Estimated GFR 79.0 ML/MIN Glucose 138 H (74-106) mg/dL Calcium 8.8 (8.4-10.2) mg/dL Total Bilirubin 0.10 L (0.2-1.3) mg/dL AST 19 (14-36) U/L ALT 26 (0-35) U/L Alkaline Phosphatase 61 (38-126) U/L Serum Total Protein 6.4 (6.3-8.2) g/dL Albumin 3.1 L (3.5-5.0) g/dL - Radiology Exams Ordered Rad Exams-Entire Visit: Radiology Procedures Category Date Time Status CHEST 1 VIEW (PORTABLE) Routine Exams 12/19/23 07:44 Completed - Procedures and Test Procedures and Tests throughout Hospitalization: Therapy Orders & Screens 12/19/23 03:44 Oxygen Oxymask LPM 8 lpm Comment: Diagnosis: Deconditioning 12/19/23 11:11 PT Eval & Treat (MD Order) ONCE Reason for Eval:: weakness Diagnosis: Deconditioning OT Eval and Treat (MD Order) ROUTINE Comment: Physician Instructions: please assess for any needs Reason For Exam: pt not able to clean herself at home Diagnosis: Deconditioning Discharge Exam General Appearance: no apparent distress Neurologic Exam: alert, 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, cooperative Eye Exam: PERRL Ears, Nose, Throat Exam: normal ENT inspection Neck Exam: normal inspection Respiratory Exam: normal breath sounds, lungs clear Cardiovascular Exam: regular rate/rhythm, normal heart sounds Gastrointestinal/Abdomen Exam: soft, normal bowel sounds Pelvic Exam: deferred Rectal Exam: deferred Back Exam: normal inspection Extremity Exam: normal inspection Skin Exam: other (Left buttock and posterior thigh, scabbing erythema) Wound Assessment: Skin/Wound Assessment Wound/Incision Assessment Start: 12/19/23 02:36 Text: Status: Active Freq: Q6H Protocol: Document 12/20/23 13:44 (Rec: 12/20/23 13:44 [id number]) Wound/Incision Assessment Left Buttock Wound Assessment Shift Assessment Comment Rash Wound Photo Photo Taken Yes Final Diagnosis/Problem List - Final Discharge Diagnosis/Problem (1) Cellulitis Current Visit: Yes Status: Acute Code(s): L03.90 - CELLULITIS, UNSPECIFIED (2) COPD (chronic obstructive pulmonary disease) Current Visit: Yes Status: Acute (3) HTN (hypertension) Current Visit: Yes Status: Acute Code(s): I10 - ESSENTIAL (PRIMARY) HYPERTENSION (4) Physical deconditioning Current Visit: Yes Status: Acute Code(s): R53.81 - OTHER MALAISE (5) Type 2 diabetes mellitus Current Visit: No Status: Chronic Priority: High - Discharge Disposition: DC TO ANY "OTHER" RESIDENTIAL Condition: Stable Prescriptions: New clindamycin HCL [Clindamycin HCl] 450 mg PO TID 7 Days #10.5 cap Continue Ropinirole HCl 3 mg PO TID Losartan Potassium 50 mg [Cozaar 50 MG] 50 mg PO DAILY 30 Days #30 tablet Lactobacillus Acidophilus [Acidophilus TABLET] 1 tab PO DAILY tablet Calcium Carbonate 750 mg [Tums EX 750 MG] 750 mg PO TIDPRN PRN tablet PRN Reason: Indigestion Acetaminophen 325 mg [Tylenol 325 mg] 650 mg PO Q4H PRN PRN tablet PRN Reason: Pain And/Or Fever Metformin HCl [Metformin ER Gastric] 500 mg PO DAILY Glimepiride 1 mg PO DAILY Bumetanide 2 mg PO DAILY Atorvastatin Calcium [Lipitor] 20 mg PO DAILY Discontinued Ciprofloxacin [Cipro 500 MG] 500 mg PO BIDAC #14 tablet Additional Instructions: RESIDENTIAL ORDERS: ADMIT TO LONGTERM CARE REGULAR DIET PT/OT EVAL AND TREAT OXYGEN AT 5-6L/NC SEE ATTACHED MED LIST Follow up with: DEB ESQUIVEL MD [Primary Care Provider] -
== END 2023-12-20 15:30 ==
LOC: ED 21:04 → MED SURG 12-19 01:15
PROVIDERS: ADMIT Student in an Organized Health Care Education/Training Program; ATTEND Student in an Organized Health Care Education/Training Program
DX: L03.317 Cellulitis of buttock (principal); L03.116 Cellulitis of left lower limb; J44.9 Chronic obstructive pulmonary disease, unspecified; I11.0 Hypertensive heart disease with heart failure; I50.9 Heart failure, unspecified; R53.81 Other malaise; E11.9 Type 2 diabetes mellitus without complications; F17.200 Nicotine dependence, unspecified, uncomplicated; Z79.899 Other long term (current) drug therapy
CPT/HCPCS: 36415; 71045; 80053; 83605; 85025; 85027; 94760; 97161; 97165; 99285; G0378; Q3014; A9270-GY

== ENCOUNTER 2023-12-22 14:27 | Emergency (ER) | payer MEDICARE ==
[2023-12-22 14:37] VITALS: TEMP 97
[2023-12-22 15:49] LABS: Absolute Neutrophil Ct (ANC) 5.68 x10^3/uL (1.4-6.9); BASOPHIL % 0.3 % (0.0-0.4); Basophil (Absolute #) 0.03 x10^3/uL (0-0.4); Eosinophil % 2.1 % (0.00-5.0); Eosinophil (Absolute #) 0.18 x10^3/uL (0-0.5); Hematocrit 37.8 % (35-47); Hemoglobin 11.3 g/dL (12.0-16.0); IMMATURE GRAN # 0.04 x10^3u/L (0.00-0.03); IMMATURE GRAN % 0.5 % (0.00-0.4); Lymphocyte (Absolute #) 2.13 x10^3/uL (1.0-4.6); Lymphocytes % 24.5 % (24.0-44.0); Mean Corpuscular Hemoglobin 26.9 pg (26-32); Mean Corpuscular Hgb Concent. 29.9 g/dL (32-36); Mean Platelet Volume 9.7 fL (7.5-11.0); Monocyte (Absolute #) 0.65 x10^3/uL (0.0-1.3); Monocytes % 7.5 % (0.0-12.0); Neutrophil % 65.1 % (36.0-66.0); Platelet Count 281 x10^3/uL (150-450); Red Cell Distribution Width 12.8 % (11.5-14.0); White Blood Count 8.7 x10^3/uL (4.0-10.5)
[2023-12-22] MEDS ORDERED: XYLOCAINE VISCOUS 2% 15 ML CUP ONE (16:08)
[2023-12-22] MEDS ORDERED: ZOFRAN ODT 4 MG ONE (16:08)
[2023-12-22] MEDS ORDERED: MAALOX ES 30 ML UNIT DOSE ONE (16:08)
[2023-12-22 16:09] LABS: ALBUMIN 3.5 g/dL (3.5-5.0); ANION GAP 6.6 MEQ/L (5-15); BILIRUBIN,TOTAL 0.2 mg/dL (0.2-1.3); Calcium 8.9 mg/dL (8.4-10.2); Creatinine 1 0.76 mg/dL (0.52-1.04); EST GLOMERULAR FILTRATION RATE 85.3 ML/MIN; NT PRO BNPII 99.4 pg/mL (<300); Potassium 3.8 mmol/L (3.5-5.1); Total Protein 7.2 g/dL (6.3-8.2)
[2023-12-22] MEDS: GI COCKTAIL 45 ML (Maalox/Lidocaine) PO ONE (16:24)
[2023-12-22] MEDS: ZOFRAN ODT 4 MG PO ONE (16:26)
--- NOTE | 2023-12-22 16:40 | XRAY ---
Indication: Chest pain. Comparison: December 19, 2023 Portable chest less inflated again with mild bilateral mid to lower lung subsegmental atelectasis/scarring. Heart not enlarged. No new/acute cardiopulmonary abnormalities.
[2023-12-22 17:08] VITALS: PULSE 83; O2SAT 93
[2023-12-22] MEDS: SUBLIMAZE 100 MCG/2 ML IV ONE (17:29)
--- NOTE | 2023-12-22 18:03 | ERPHSYRPT ---
- History of Present Illness Time Seen by Provider: 12/22/23 14:30 Historian: patient, EMS, [facility] records Exam Limitations: no limitations Patient Subjective Stated Complaint: PT HERE FOR CHEST PAIN TO CENTER OF CHEST SINCE LUNCH TODAY. NO OTHER SYPTOMS. [facility] Triage Nursing Assessment: PT ARRIVED PER AMBULANCE, ALERT, CO EPIGASTRIC CHEST PAIN, NO RADIATION, HAS CONGESTED SOUNDING COUGH WHICH IS NORMAL FOR HER, O2 AT 3 L NC. EDEMA TO LOWER LEGS THAT IS NORMAL FOR HER, MOVES ALL EXT, CHEST WITH RALES. Physician History: 68 years old resident of [facility] with multiple medical problems including chronic respiratory failure on oxygen presented in the ER with complaint of substernal chest pain started around noon time. Patient also reports some epigastric discomfort with no vomiting. Has shortness of breath at her baseline which is not any worse than usual. Patient rates her pain 5/10 intensity. Denies any new cough or congestion symptoms but what she has at her baseline. Has chronic lower extremity swellings which is not any worse than usual. No fever or chills reported. Aspirin Treatment Today: unknown Allergies/Adverse Reactions: codeine Allergy (Intermediate, Verified 12/22/23 14:32) rash, itching cefaclor [From Ceclor] Allergy (Mild, Verified 12/22/23 14:32) Rash Penicillins Allergy (Mild, Verified 12/22/23 14:32) Swelling bacitracin [From Neosporin ([id number])] Adverse Reaction (Mild, Verified 12/22/23 14:32) Itching bacitracin zinc [From Neosporin ([id number])] Adverse Reaction (Mild, Verified 12/22/23 14:32) Itching levofloxacin [From Levaquin] Adverse Reaction (Mild, Verified 12/22/23 14:32) itch neomycin sulfate [From Neosporin ([id number])] Adverse Reaction (Mild, Verified 12/22/23 14:32) itch polymyxin B [From Neosporin ([id number])] Adverse Reaction (Mild, Verified 12/22/23 14:32) Itching Home Medications: Ropinirole HCl 3 mg PO TID 01/23/23 [History] Atorvastatin Calcium [Lipitor] 20 mg PO DAILY 11/13/23 [History] Bumetanide 2 mg PO DAILY 11/13/23 [History] Glimepiride 1 mg PO DAILY 11/13/23 [History] Metformin HCl [Metformin ER Gastric] 500 mg PO DAILY 11/13/23 [History] Hx Tetanus, Diphtheria Vaccination/Date Given: Yes Hx Influenza Vaccination/Date Given: No Hx Pneumococcal Vaccination/Date Given: No Immunizations Up to Date: Yes Travel Risk - International Travel Have you traveled outside of the country in past 3 weeks: No - Emerging Infectious Disease Are you exhibiting symptoms associated with any current EIDs: No - Review of Systems Constitutional: No Symptoms Eyes: No Symptoms Ears, Nose, & Throat: No Symptoms Respiratory: Cough, Dyspnea Cardiac: Chest Pain Abdominal/Gastrointestinal: Nausea Genitourinary Symptoms: No Symptoms Musculoskeletal: Arthralgias Skin: No Symptoms Endocrine: No Symptoms Hematologic/Lymphatic: No Symptoms - Past Medical History Pertinent Past Medical History: Yes Neurological History: No Pertinent History ENT History: No Pertinent History Cardiac History: Congestive Heart Failure, Hypertension, Peripheral Vascular Disease Respiratory History: COPD, Emphysema Endocrine Medical History: Diabetes Type II Musculoskeletal History: Fibromyalgia GI Medical History: No Pertinent History History: Other Psycho-Social History: No Pertinent History Female Reproductive Disorders: No Pertinent History Other Medical History: Stress Incontinence - Past Surgical History Past Surgical History: Yes Neuro Surgical History: No Pertinent History Cardiac: No Pertinent History Respiratory: No Pertinent History Gastrointestinal: Cholecystectomy Genitourinary: No Pertinent History Musculoskeletal: No Pertinent History Female Surgical History: Tubal Ligation Significant Family History: no pertinent family hx - Social History Smoking Status: Current every day smoker How long have you smoked: 50 years Exposure to second hand smoke: Yes Drug Use: none Patient Lives Alone: No - Nursing Vital Signs Nursing Vital Signs: Initial Vital Signs Pulse Rate 90 12/22/23 14:32 Pain Scale Pain Intensity 4 - Physical Exam General Appearance: no apparent distress, alert Eye Exam: PERRL/EOMI Ears, Nose, Throat Exam: normal ENT inspection Neck Exam: normal inspection, full range of motion Respiratory Exam: diminished breath sounds, rhonchi, wheezing Cardiovascular Exam: regular rate/rhythm, normal heart sounds Gastrointestinal/Abdomen Exam: soft, normal bowel sounds, No tenderness Extremity Exam: normal range of motion Neurologic Exam: alert, 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, cooperative, distribution coordinator II-XII nml as tested Skin Exam: normal color SpO2 Interpretation: O2 applied SpO2: 93 O2 Delivery: Nasal Cannula - Course EKG Interpreted by Me: RATE (89), Sinus Rhythm, Right [place] Deviation, Right Bundle Branch Block, Q-wave, Non-specific ST Changes Ordered Tests: Active Orders 24 hr Category Date Time Status EKG-ER Only STAT Care 12/22/23 15:30 Completed IV Insertion STAT Care 12/22/23 15:30 Completed CHEST 1 VIEW (PORTABLE) Stat Exams 12/22/23 15:31 Completed CBC W DIFF Stat Lab 12/22/23 15:40 Completed CMP Stat Lab 12/22/23 15:40 Completed LIPASE Stat Lab 12/22/23 15:40 Completed MAGNESIUM Stat Lab 12/22/23 15:40 Completed NT PRO BNPII Stat Lab 12/22/23 15:40 Completed TROPONIN Q4H Lab 12/22/23 15:40 Completed Medication Summary Discontinued Medications Generic Name Dose Route Start Last Admin Trade Name Freq PRN Reason Stop Dose Admin Al Hydrox/Mg Hydrox/Simethicone Confirm 12/22/23 16:08 Mag Hydrox/Al Hydrox/Simeth 30 Ml Udcup Administered 12/22/23 16:09 Dose 30 ml .ROUTE .STK-MED ONE Fentanyl Citrate 50 mcg 12/22/23 15:30 12/22/23 17:29 Fentanyl Citrate 100 Mcg/2 Ml* Vial IV 12/22/23 15:31 Not Given STAT ONE Lidocaine HCl Confirm 12/22/23 16:08 Lidocaine Hcl 2% Viscous 15 Ml Udcup Administered 12/22/23 16:09 Dose 15 ml .ROUTE .STK-MED ONE Magnesium Hydroxide 45 ml 12/22/23 15:31 12/22/23 16:24 Mag Hydrx/Alum Hyd/Simeth/Lido 45 Ml Bottle PO 12/22/23 15:32 45 ml STAT ONE Administration Ondansetron HCl 4 mg 12/22/23 15:30 12/22/23 16:26 Zofran 4 Mg/Udtablet Orally Disintegrating PO 12/22/23 15:31 4 mg STAT ONE Administration Ondansetron HCl Confirm 12/22/23 16:08 Zofran 4 Mg/Udtablet Orally Disintegrating Administered 12/22/23 16:09 Dose 4 mg .ROUTE .STK-MED ONE Lab/Rad Data: Laboratory Result Diagrams 12/22/23 15:40 12/22/23 15:40 Laboratory Results 12/22/23 12/22/23 12/22/23 Range/Units 15:40 15:40 15:40 WBC 8.7 (4.0-10.5) x10^3/uL RBC 4.20 (4.1-5.4) x10^6/uL Hgb 11.3 L (12.0-16.0) g/dL Hct 37.8 (35-47) % MCV 90.0 (78-100) fL MCH 26.9 (26-32) pg MCHC 29.9 L (32-36) g/dL RDW 12.8 (11.5-14.0) % Plt Count 281 (150-450) x10^3/uL MPV 9.7 (7.5-11.0) fL Gran % 65.1 (36.0-66.0) % Immature Gran % (Auto) 0.5 H (0.00-0.4) % Nucleat RBC Rel Count 0.0 (0.00-0.1) % Eos # (Auto) 0.18 (0-0.5) x10^3/uL Immature Gran # (Auto) 0.04 H (0.00-0.03) x10^3u/L Absolute Lymphs (auto) 2.13 (1.0-4.6) x10^3/uL Absolute Monos (auto) 0.65 (0.0-1.3) x10^3/uL Absolute Nucleated RBC 0.00 (0.00-0.01) x10^3u/L Lymphocytes % 24.5 (24.0-44.0) % Monocytes % 7.5 (0.0-12.0) % Eosinophils % 2.1 (0.00-5.0) % Basophils % 0.3 (0.0-0.4) % Absolute Granulocytes 5.68 (1.4-6.9) x10^3/uL Basophils # 0.03 (0-0.4) x10^3/uL Sodium 138 (135-145) mmol/L Potassium 3.8 (3.5-5.1) mmol/L Chloride 96 L (98-107) mmol/L Carbon Dioxide 39 H (22-30) mmol/L Anion Gap 6.6 (5-15) MEQ/L BUN 23 H (7-17) mg/dL Creatinine 0.76 (0.52-1.04) mg/dL Estimated GFR 85.3 ML/MIN Glucose 103 (74-106) mg/dL Calcium 8.9 (8.4-10.2) mg/dL Magnesium 2.0 (1.6-2.3) mg/dL Total Bilirubin 0.20 (0.2-1.3) mg/dL AST 19 (14-36) U/L ALT 22 (0-35) U/L Alkaline Phosphatase 66 (38-126) U/L Troponin I < 0.012 (0.000-0.033) ng/mL NT-Pro-B Natriuret Pep 99.4 (<300) pg/mL Serum Total Protein 7.2 (6.3-8.2) g/dL Albumin 3.5 (3.5-5.0) g/dL Lipase 71 (23-300) U/L - Progress Progress: improved Air Movement: good Progress Note: 12/22/23 18:02 68 years old with multiple medical problems is evaluated for chest pain starting around noon time. EKG is normal sinus rhythm with no acute ST elevations. She is given symptomatic treatment along with GI cocktail, on reevaluation she is symptom-free. Patient workup showed normal white count, fairly unremarkable chemistries, chest x-ray negative for any acute cardiopulmonary findings reviewed by me followed by official read. Patient on reevaluation is much improved and rates her pain 1-2/10. With her multiple risk factors and short duration of onset of pain I have recommended observation admission but patient does not want to stay in the hospital at all. She does not want to have second troponin's done either. She wants to leave AGAINST MEDICAL ADVICE. Patient is not confused or altered at all. Patient states "I have similar pains in the past and I will come back if it happens again". She signed AMA paper and is sent back to [facility]. Counseled pt/family regarding: lab results, diagnosis, rad results Medical Desision Making - Independent Historian Additional History obtained from: Server Developer/EMT - Diagnostic Testing Diagnostic test were ordered, analyzed, and reviewed by me: Yes Radiological Interpretation: Interpreted by me, Reviewed by me - Risk of complications The pt has a high risk of morbidity or mortality based on: Decision regarding hospitilization or escalation of hosp level of care - Departure Departure Disposition: AMA Clinical Impression: Substernal chest pain Condition: Stable Critical Care Time: No Referrals: DEB ESQUIVEL MD [Primary Care Provider] - Follow up with PCP 1 day Instructions: Angina (DC), Chest Pain (DC) Additional Instructions: Follow-up with your primary care and cardiology for reevaluation in 1 to 2 days. Return to ER for having chest pain palpitations or difficulty breathing.
[2023-12-22 18:28] VITALS: BP 127/77; RESP 32
== END 2023-12-22 18:34 | disposition home or self-care (01) ==
LOC: ED 14:27
DX: R07.9 Chest pain, unspecified (principal); R60.0 Localized edema; I11.0 Hypertensive heart disease with heart failure; I50.9 Heart failure, unspecified; E11.9 Type 2 diabetes mellitus without complications; F17.200 Nicotine dependence, unspecified, uncomplicated
CPT/HCPCS: 36415; 71045; 80053; 83690; 83735; 83880; 84484; 85025; 93005; 99284; Q0162; A9270-GY

== ENCOUNTER 2024-02-08 23:06 | Observation (INO) | payer MEDICARE ==
--- NOTE | 2024-02-08 23:45 | ERPHSYRPT ---
- History of Present Illness Time Seen by Provider: 02/08/24 23:29 Source: patient Exam Limitations: no limitations, clinical condition Patient Subjective Stated Complaint: patient here for evaluation of increasing weakness Timing/Duration: today Severity: mild Modifying Factors: Improves With: nothing Associated Symptoms: denies symptoms Allergies/Adverse Reactions: codeine Allergy (Intermediate, Verified 02/08/24 23:18) rash, itching cefaclor [From Ceclor] Allergy (Mild, Verified 02/08/24 23:18) Rash Penicillins Allergy (Mild, Verified 02/08/24 23:18) Swelling bacitracin [From Neosporin ([id number])] Adverse Reaction (Mild, Verified 02/08/24 23:18) Itching bacitracin zinc [From Neosporin ([id number])] Adverse Reaction (Mild, Verified 02/08/24 23:18) Itching levofloxacin [From Levaquin] Adverse Reaction (Mild, Verified 02/08/24 23:18) itch neomycin sulfate [From Neosporin ([id number])] Adverse Reaction (Mild, Verifi ed 02/08/24 23:18) itch polymyxin B [From Neosporin ([id number])] Adverse Reaction (Mild, Verified 02/08/24 23:18) Itching Home Medications: Ropinirole HCl 3 mg PO TID 01/23/23 [History] Atorvastatin Calcium [Lipitor] 20 mg PO DAILY 11/13/23 [History] Bumetanide 2 mg PO DAILY 11/13/23 [History] Glimepiride 1 mg PO DAILY 11/13/23 [History] Metformin HCl [Metformin ER Gastric] 500 mg PO DAILY 11/13/23 [History] Hx Tetanus, Diphtheria Vaccination/Date Given: Yes Hx Influenza Vaccination/Date Given: No Hx Pneumococcal Vaccination/Date Given: No Travel Risk - Emerging Infectious Disease Are you exhibiting symptoms associated with any current EIDs: No - Past Medical History Pertinent Past Medical History: Yes Neurological History: No Pertinent History ENT History: No Pertinent History Cardiac History: Congestive Heart Failure, Hypertension, Peripheral Vascular Disease Respiratory History: COPD, Emphysema Endocrine Medical History: Diabetes Type II Musculoskeletal History: Fibromyalgia GI Medical History: No Pertinent History History: Other Psycho-Social History: No Pertinent History Female Reproductive Disorders: No Pertinent History Other Medical History: Stress Incontinence - Past Surgical History Past Surgical History: Yes Neuro Surgical History: No Pertinent History Cardiac: No Pertinent History Respiratory: No Pertinent History Gastrointestinal: Cholecystectomy Genitourinary: No Pertinent History Musculoskeletal: No Pertinent History Female Surgical History: Tubal Ligation Significant Family History: no pertinent family hx - Social History Smoking Status: Current every day smoker How long have you smoked: 50 years Exposure to second hand smoke: Yes Drug Use: none Patient Lives Alone: No - Social Determinants of Health Will the patient participate in the screening: Yes Do you worry about a steady place to live?: No In the past 12 months,have you had to go without utilities?: No Transportation Issues: No Has anyone in your support network made you feel unsafe?: No Have you or anyone in your house had to go without enough: No - Nursing Vital Signs Nursing Vital Signs: Initial Vital Signs Temperature 98.1 F 02/08/24 23:25 Pulse Rate 96 H 02/08/24 23:25 Respiratory Rate 20 02/08/24 23:25 Blood Pressure 172/94 02/08/24 23:25 O2 Sat by Pulse Oximetry 93 L 02/08/24 23:25 Pain Scale Pain Intensity 0 - Physical Exam General Appearance: no apparent distress Eye Exam: PERRL/EOMI Ears, Nose, Throat Exam: dry mucous membranes Respiratory Exam: diminished breath sounds Cardiovascular Exam: regular rate/rhythm Gastrointestinal/Abdomen Exam: soft, normal bowel sounds SpO2: 93 Ordered Tests: Active Orders 24 hr Category Date Time Status cath [Cath for Specimen-Straight] STAT Care 02/09/24 02:50 Active CHEST 1 VIEW (PORTABLE) Stat Exams 02/08/24 23:39 Taken CULTURE,URINE Stat Lab 02/09/24 02:51 Received UA W/RFX UR CULTURE Stat Lab 02/09/24 02:51 Completed Transfer Order Routine Transfer 02/09/24 Ordered Medication Summary Discontinued Medications Generic Name Dose Route Start Last Admin Trade Name Freq PRN Reason Stop Dose Admin Sodium Chloride 500 mls @ 500 mls/hr 02/08/24 23:40 02/09/24 01:21 Sodium Chloride 0.9% 500 Ml IV 02/09/24 00:39 500 mls/hr .Q1H ONE Administration Sodium Chloride Confirm 02/09/24 01:19 Sodium Chloride 0.9% 500 Ml Administered 02/09/24 01:20 Dose 500 mls @ ud IV .STK-MED ONE Levofloxacin/Dextrose 500 mg in 100 mls @ 100 mls/hr 02/09/24 02:55 02/09/24 03:31 Levofloxacin 500mg/100ml D5w IV 02/09/24 03:54 100 ml/hr STAT STA 100 mls/hr Administration Levofloxacin/Dextrose Confirm 02/09/24 03:29 Levofloxacin 500mg/100ml D5w Administered 02/09/24 03:30 Dose 500 mg in 100 mls @ ud IV .STK-MED ONE Lab/Rad Data: Laboratory Result Diagrams 02/08/24 00:37 02/08/24 00:37 Laboratory Results 02/09/24 02/08/24 02/08/24 Range/Units 02:51 00:37 00:37 WBC 12.5 H (4.0-10.5) x10^3/uL RBC 3.87 L (4.1-5.4) x10^6/uL Hgb 10.4 L (12.0-16.0) g/dL Hct 35.3 (35-47) % MCV 91.2 (78-100) fL MCH 26.9 (26-32) pg MCHC 29.5 L (32-36) g/dL RDW 14.3 H (11.5-14.0) % Plt Count 265 (150-450) x10^3/uL MPV 10.1 (7.5-11.0) fL Sodium 141 (135-145) mmol/L Potassium 3.6 (3.5-5.1) mmol/L Chloride 95 L (98-107) mmol/L Carbon Dioxide 40 H (22-30) mmol/L Anion Gap 9.6 (5-15) MEQ/L BUN 19 H (7-17) mg/dL Creatinine 0.58 (0.52-1.04) mg/dL Estimated GFR 98.5 ML/MIN Glucose 195 H (74-106) mg/dL Calcium 9.5 (8.4-10.2) mg/dL Magnesium 2.0 (1.6-2.3) mg/dL Total Bilirubin 0.30 (0.2-1.3) mg/dL AST 39 H (14-36) U/L ALT 19 (0-35) U/L Alkaline Phosphatase 69 (38-126) U/L Serum Total Protein 7.1 (6.3-8.2) g/dL Albumin 3.6 (3.5-5.0) g/dL Urine Color Yellow (Yellow) Urine Appearance Turbid A (Clear) Urine pH 6.5 (4.6-8.0) Ur Specific [place] 1.020 (1.005-1.030) Urine Protein 300 A (Negative) Urine Glucose (UA) Negative (Negative) mg/dL Urine Ketones Trace A (Negative) Urine Blood Negative (Negative) Urine Nitrite Negative (Negative) Urine Bilirubin Negative (Negative) Urine Urobilinogen 1.0 A (0.2) mg/dL Ur Leukocyte Esterase Moderate A (Negative) U Hyaline Cast (Auto) 11-20 (0-2) /LPF Urine Microscopic RBC >100 A (0-5) /HPF Urine Microscopic WBC >100 A (0-5) /HPF Ur Epithelial Cells Rare (None Seen) /HPF Urine Bacteria Many A (None Seen) /HPF Urine Culture Reflexed YES (NO) - Progress Progress: improved Progress Note: Patient was seen and evaluated for dehydration and weakness she has a history of UTI examination she has dry oral and nasal mucosa. She was given IV fluids and IV Levaquin. Patient informed myself and the staff that she wishes to be admitted to the senior living. I Will page the hospitalist to admit the patient to the floor 02/09/24 03:54 Medical Desision Making - Discussion of managment Care discussed with:: hospitalist Reviewed:: Test results, Need for additional workup Agreed on:: Treatment plan, decision to admit, place in obs - Departure Departure Disposition: Observation Clinical Impression: Dysuria, UTI (urinary tract infection), Dehydration Condition: Good Critical Care Time: No Referrals: DEB ESQUIVEL MD [Primary Care Provider] - Follow up/PCP as directed
[2024-02-09 00:44] LABS: Hematocrit 35.3 % (35-47); Hemoglobin 10.4 g/dL (12.0-16.0); Mean Cell Volume 91.2 fL (78-100); Mean Corpuscular Hemoglobin 26.9 pg (26-32); Mean Corpuscular Hgb Concent. 29.5 g/dL (32-36); Mean Platelet Volume 10.1 fL (7.5-11.0); Platelet Count 265 x10^3/uL (150-450); Red Blood Count 3.87 x10^6/uL (4.1-5.4); Red Cell Distribution Width 14.3 % (11.5-14.0); White Blood Count 12.5 x10^3/uL (4.0-10.5)
[2024-02-09 00:51] LABS: ALBUMIN 3.6 g/dL (3.5-5.0); BILIRUBIN,TOTAL 0.3 mg/dL (0.2-1.3); Calcium 9.5 mg/dL (8.4-10.2); Creatinine 1 0.58 mg/dL (0.52-1.04); EST GLOMERULAR FILTRATION RATE 98.5 ML/MIN; Potassium 3.6 mmol/L (3.5-5.1); Total Protein 7.1 g/dL (6.3-8.2)
[2024-02-09 01:00] LABS: ANION GAP 9.6 MEQ/L (5-15)
[2024-02-09] MEDS ORDERED: Sodium Chloride 0.9% 500 ML 500 ML IV ONE (01:19)
[2024-02-09] MEDS: Sodium Chloride 0.9% 500 ML 500 ML IV ONE (01:21)
[2024-02-09 03:06] LABS: ADD URINE CULTURE? YES (NO); Appearance Turbid (Clear); Bacteria Many /HPF (None Seen); Bilirubin Negative (Negative); Blood Negative (Negative); Epithelial Cells Rare /HPF (None Seen); Glucose, Urine Negative (Negative); Ketones Trace (Negative); Leukocyte Esterase Moderate (Negative); Nitrite Negative (Negative); Ph 6.5 (4.6-8.0); Protein,Urine Dip 300 (Negative); RBC >100 /HPF (0-5); WBC >100 /HPF (0-5)
[2024-02-09] MEDS ORDERED: Levofloxacin 500MG/100ML D5W 500 MG/100 ML BAG IV ONE (03:29)
[2024-02-09] MEDS: Levofloxacin 500MG/100ML D5W 500 MG/100 ML BAG IV STA (03:31)
--- NOTE | 2024-02-09 06:07 | PCM.HP ---
History of Present Illness - Chief Complaint Chief Complaint: UTI, dehydration, weakness Date: 02/09/24 History of Present Illness: Ms. HODGES is a 68 year old female with a past medical history significant for hypertension, diabetes, hyperlipidemia, COPD, lower extremity edema and UTIs who presents to the hospital with complaints of increasing weakness and fatigue. She was evaluated in the ER and thought to have a UTI, so she was given some antibiotics and recommended for admission. She is evaluated in bed via telehealth, but is quite somnolent. She wakes up momentarily but then goes back to sleep again. Initial labs were notable for a WBC of 12.5k and normal kidney function, but bicarb is elevated at 40. U/A demonstrates pyuria with many bacteria, 4+ protein, and ketones. Most of the history is gathered from chart review. - Review of Systems All Other Systems: Unable due to condition Medications & Allergies Home Medications: Home Medication List Ropinirole HCl 3 mg PO TID 01/23/23 [History Confirmed 12/22/23] Acetaminophen 325 mg [Tylenol 325 mg] 650 mg PO Q4H PRN PRN tablet 04/26/23 [Rx Confirmed 12/22/23] Calcium Carbonate 750 mg [Tums EX 750 MG] 750 mg PO TIDPRN PRN tablet 04/26/23 [Rx Confirmed 12/22/23] Lactobacillus Acidophilus [Acidophilus TABLET] 1 tab PO DAILY tablet 04/26/23 [Rx Confirmed 12/22/23] Losartan Potassium 50 mg [Cozaar 50 MG] 50 mg PO DAILY 30 Days #30 tablet 04/26/23 [Rx Confirmed 12/22/23] Atorvastatin Calcium [Lipitor] 20 mg PO DAILY 11/13/23 [History Confirmed 12/22/23] Bumetanide 2 mg PO DAILY 11/13/23 [History Confirmed 12/22/23] Glimepiride 1 mg PO DAILY 11/13/23 [History Confirmed 12/22/23] Metformin HCl [Metformin ER Gastric] 500 mg PO DAILY 11/13/23 [History Confirmed 12/22/23] clindamycin HCL [Clindamycin HCl] 450 mg PO TID 7 Days #10.5 cap 12/20/23 [Rx Confirmed 12/22/23] Allergies/Adverse Reactions: Allergies Allergy/AdvReac Type Severity Reaction Status Date / Time codeine Allergy Intermediate rash, Verified 02/08/24 23:18 itching cefaclor [From Ceclor] Allergy Mild Rash Verified 02/08/24 23:18 Penicillins Allergy Mild Swelling Verified 02/08/24 23:18 bacitracin AdvReac Mild Itching Verified 02/08/24 23:18 [From Neosporin ([id number])] bacitracin zinc AdvReac Mild Itching Verified 02/08/24 23:18 [From Neosporin ([id number])] levofloxacin [From Levaquin] AdvReac Mild itch Verified 02/08/24 23:18 neomycin sulfate AdvReac Mild itch Verified 02/08/24 23:18 [From Neosporin ([id number])] polymyxin B AdvReac Mild Itching Verified 02/08/24 23:18 [From Neosporin ([id number])] - Past Medical History Past Medical History: Yes Neurological History: No Pertinent History ENT History: No Pertinent History Cardiac History: Congestive Heart Failure, Hypertension, Peripheral Vascular Disease Respiratory History: COPD, Emphysema Endocrine Medical History: Diabetes Type II Musculoskelatal History: Fibromyalgia GI Medical History: No Pertinent History History: Other Pyscho-Social History: No Pertinent History Reproductive Disorders: No Pertinent History Comment: Stress Incontinence - Past Surgical History Past Surgical History: Yes Neuro Surgical History: No Pertinent History Cardiac History: No Pertinent History Respiratory Surgery: No Pertinent History GI Surgical History: Cholecystectomy Genitourinary Surgical Hx: No Pertinent History Musculskeletal Surgical Hx: No Pertinent History Female Surgical History: Tubal Ligation Significant Family History: no pertinent family hx - Social History Smoking Status: Current every day smoker How long have you smoked: 50 years Exposure to second hand smoke: Yes Alcohol: None Drug Use: none - Social Determinants of Health Will the patient participate in the screening: Unable to obtain Do you worry about a steady place to live?: No Do you have any problems with any of the following?: Pest (bugs,ants,or mice), Unsafe gordo/stairs, Inadequate lighting, Other In the past 12 months,have you had to go without utilities?: No Have you or anyone in your house had to go without enough: No Transportation Issues: No Has anyone in your support network made you feel unsafe?: No Does the patient want assistance with any of the above?: No Comment: pt drowsy and not answering- info taken from ems - Physical Exam Vital Signs: Vital Signs - 24 hr Temp Pulse Resp BP BP Pulse Ox 02/09/24 04:48 98.1 F 76 26 H 169/70 99 02/09/24 04:07 93 L 02/09/24 04:01 97 H 18 146/55 94 L 02/09/24 03:00 79 147/62 94 L 02/09/24 02:31 138/86 93 L 02/09/24 02:00 105 H 20 171/75 93 L 02/09/24 01:00 102 H 18 152/99 93 L 02/08/24 23:25 98.1 F 96 H 20 172/94 93 L General Appearance: lethargy Neurologic Exam: No alert, No 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 Ears, Nose, Throat Exam: dry mucous membranes Neck Exam: supple Respiratory Exam: No respiratory distress Cardiovascular Exam: regular rate/rhythm Gastrointestinal/Abdomen Exam: soft Extremity Exam: pedal edema Skin Exam: normal color, rash Results - Labs Lab/Micro Results: Lab Results-Last 24 Hours 02/08/24 02/08/24 02/09/24 Range/Units 00:37 00:37 02:51 WBC 12.5 H (4.0-10.5) x10^3/uL RBC 3.87 L (4.1-5.4) x10^6/uL Hgb 10.4 L (12.0-16.0) g/dL Hct 35.3 (35-47) % MCV 91.2 (78-100) fL MCH 26.9 (26-32) pg MCHC 29.5 L (32-36) g/dL RDW 14.3 H (11.5-14.0) % Plt Count 265 (150-450) x10^3/uL MPV 10.1 (7.5-11.0) fL Sodium 141 (135-145) mmol/L Potassium 3.6 (3.5-5.1) mmol/L Chloride 95 L (98-107) mmol/L Carbon Dioxide 40 H (22-30) mmol/L Anion Gap 9.6 (5-15) MEQ/L BUN 19 H (7-17) mg/dL Creatinine 0.58 (0.52-1.04) mg/dL Estimated GFR 98.5 ML/MIN Glucose 195 H (74-106) mg/dL Calcium 9.5 (8.4-10.2) mg/dL Magnesium 2.0 (1.6-2.3) mg/dL Total Bilirubin 0.30 (0.2-1.3) mg/dL AST 39 H (14-36) U/L ALT 19 (0-35) U/L Alkaline Phosphatase 69 (38-126) U/L Serum Total Protein 7.1 (6.3-8.2) g/dL Albumin 3.6 (3.5-5.0) g/dL Urine Color Yellow (Yellow) Urine Appearance Turbid A (Clear) Urine pH 6.5 (4.6-8.0) Ur Specific Quinn 1.020 (1.005-1.030) Urine Protein 300 A (Negative) Urine Glucose (UA) Negative (Negative) mg/dL Urine Ketones Trace A (Negative) Urine Blood Negative (Negative) Urine Nitrite Negative (Negative) Urine Bilirubin Negative (Negative) Urine Urobilinogen 1.0 A (0.2) mg/dL Ur Leukocyte Esterase Moderate A (Negative) U Hyaline Cast (Auto) 11-20 (0-2) /LPF Urine Microscopic RBC >100 A (0-5) /HPF Urine Microscopic WBC >100 A (0-5) /HPF Ur Epithelial Cells Rare (None Seen) /HPF Urine Bacteria Many A (None Seen) /HPF Urine Culture Reflexed YES (NO) - Radiology Impressions Radiology Exams & Impressions: Radiology Procedures Category Date Time Status CHEST 1 VIEW (PORTABLE) Stat Exams 02/08/24 23:39 Taken - Other Procedures and Tests Respiratory Therapy 02/09/24 05:49 RT Screen per Nursing Assess ONCE Smoking Cessation Education ONCE Assessment/Plan (1) Generalized weakness Current Visit: No Status: Acute Assessment & Plan: Likely related to UTI versus prerenal azotemia given presence of urine ketones but may have significant CO2 retention 1. Admit to hospital 2. Trial of IVFs 3. Check ABG to rule out CO2 narcosis 4. Antibiotics 5. PT eval 6. GI/DVT prophylaxis 7. senior living placement? Code(s): R53.1 - WEAKNESS (2) Alkalosis, metabolic Current Visit: Yes Status: Acute Assessment & Plan: Likely from volume contraction/diuretics versus a metabolic compensation from respiratory acidosis 1. Check ABG to determine if pt is alkalemic or acidemic 2. Hold Bumex 3. IVFs 4. Trend CO2 Code(s): E87.3 - ALKALOSIS (3) UTI (urinary tract infection) Current Visit: Yes Status: Acute Assessment & Plan: Elevated WBC with many bacteria, but no nitrites/hematuria 1. Trial of empiric antibiotics to cover UTI and cellulitis 2. Follow up urine culture 3. Trend WBC Code(s): N39.0 - URINARY TRACT INFECTION, SITE NOT SPECIFIED (4) Bilateral lower leg cellulitis Current Visit: No Status: Acute Code(s): L03.116 - CELLULITIS OF LEFT LOWER LIMB; L03.115 - CELLULITIS OF RIGHT LOWER LIMB (5) HTN (hypertension) Current Visit: No Status: Acute Qualifiers: Hypertension type: primary hypertension Qualified Code(s): I10 - Essential (primary) hypertension Assessment & Plan: Blood pressure under reasonable control 1. Continue bp meds 2. Low Na diet 3. Monitor blood pressure readings Code(s): I10 - ESSENTIAL (PRIMARY) HYPERTENSION (6) Type 2 diabetes mellitus with diabetic nephropathy Current Visit: Yes Status: Acute Assessment & Plan: On Metformin but with significant proteinuria 1. Continue meds 2. Check urine protein:Cr ratio 3. FSBS qAC/HS 4. Sliding scale insulin Code(s): E11.21 - TYPE 2 DIABETES MELLITUS WITH DIABETIC NEPHROPATHY Telemedicine Encounter - Telemedicine Encounter Telemedicine Encounter: The entirety of this encounter was performed via Telemedicine"
[2024-02-09] MEDS ORDERED: TYLENOL 325 MG PO PRN (06:14)
[2024-02-09] MEDS ORDERED: Docusate Sodium 100 MG PO PRN (06:14)
[2024-02-09 07:17] LABS: A-aADO2 138; ABG HEMOGLOBIN 9.9; ABG POTASSIUM 3.3 (3.5-5.1); ARTERIAL BLD GAS O2 SATURATION 96.6 % (95-100); ARTERIAL BLOOD GAS BASE EXCESS 19.5 (-2.0-2.0); ARTERIAL BLOOD GAS FIO2 40 %; ARTERIAL BLOOD GAS PO2 68 mmHg (75-100); ARTERIAL BLOOD GAS pH 7.47 (7.35-7.45); CARBOXYHEMOGLOBIN 2.7 % THgb (0.0-6.9); HCO3- 45.9 (22-28); HGB O2 SAT 93.9 g/dF (94-100); Methhemoglobin 0.1 % (1.4-1.5); paO2 pAO1 0.33
[2024-02-09 07:18] LABS: ABG SITE RIGHT BRACHIAL; ARTERIAL BLOOD GAS PCO2 63 mmHg (35-45)
[2024-02-09] MEDS: DUONEB 0.5-3 MG/3 ml Neb IH SCH (07:32)
[2024-02-09 08:01] LABS: Hematocrit 34.1 % (35-47); Mean Cell Volume 91.4 fL (78-100); Mean Corpuscular Hemoglobin 26.8 pg (26-32); Mean Corpuscular Hgb Concent. 29.3 g/dL (32-36); Mean Platelet Volume 9.8 fL (7.5-11.0); Platelet Count 245 x10^3/uL (150-450); Red Blood Count 3.73 x10^6/uL (4.1-5.4); Red Cell Distribution Width 14.4 % (11.5-14.0); White Blood Count 10.5 x10^3/uL (4.0-10.5)
[2024-02-09 08:14] LABS: ALBUMIN 3.4 g/dL (3.5-5.0); BILIRUBIN,TOTAL 0.4 mg/dL (0.2-1.3); Calcium 9.3 mg/dL (8.4-10.2); Creatinine 1 0.51 mg/dL (0.52-1.04); EST GLOMERULAR FILTRATION RATE 101.6 ML/MIN; MAGNESIUM 1.9 mg/dL (1.6-2.3); Potassium 3.5 mmol/L (3.5-5.1); Total Protein 6.9 g/dL (6.3-8.2)
[2024-02-09 08:22] LABS: CREATININE,URINE RANDOM 59.4 MG/DL
[2024-02-09 08:23] LABS: ANION GAP 8.5 MEQ/L (5-15)
[2024-02-09] MEDS: TYLENOL 325 MG PO PRN (08:28)
[2024-02-09] MEDS: POTASSIUM CHLORIDE 20 mEq IN WATER 100ML 100 ML IV SCH (08:45)
[2024-02-09] MEDS: Amaryl 2 MG PO SCH (09:08)
[2024-02-09] MEDS: ZOCOR 20MG PO SCH (09:08)
[2024-02-09] MEDS: Protonix 40MG Tablet PO SCH (09:08)
[2024-02-09] MEDS: Cozaar 50 MG PO SCH (09:09)
[2024-02-09] MEDS: ENOXAPARIN SODIUM SQ SCH (09:09)
[2024-02-09] MEDS: Glucophage XR 500 MG PO SCH (09:09)
--- NOTE | 2024-02-09 09:17 | XRAY ---
Indication: Cough. Comparison: December 22, 2023 Portable chest better inflated again with left mid lung subsegmental atelectasis/scarring and a few incidental tiny calcified granulomas. No focal infiltrate, consolidation, or large effusion. Heart not enlarged. Bony thorax intact again with osteopenia and mild degenerative changes. Impression: Nonacute chest with chronic features.
[2024-02-09] MEDS ORDERED: Glucophage XR 500 MG PO SCH (10:00)
[2024-02-09] MEDS ORDERED: NON-FORMULARY ITEM (Losartan Potassium [Cozaar] 25 MG Tablet) PO SCH (10:00)
[2024-02-09] MEDS ORDERED: METFORMIN HCL 500 MG PO SCH (10:00)
[2024-02-09] MEDS ORDERED: NON-FORMULARY ITEM (Atorvastatin Calcium [Lipitor] 20 MG Tablet) PO SCH (10:00)
[2024-02-09] MEDS ORDERED: Cozaar 50 MG PO SCH (10:00)
[2024-02-09] MEDS ORDERED: NON-FORMULARY ITEM (Glimepiride [Glimepiride] 1 MG Tablet) PO SCH (10:00)
[2024-02-09] MEDS ORDERED: NON-FORMULARY ITEM (Metformin Hcl 500 MG Tab.Er.24h) PO SCH (10:00)
[2024-02-09] MEDS: NYSTOP POWDER 15 GM TP SCH (11:15)
[2024-02-09] MEDS: HUMALOG SQ PRN (12:19)
[2024-02-09] MEDS: Levofloxacin 500MG/100ML D5W 500 MG/100 ML BAG IV SCH (21:52)
[2024-02-10] MEDS ORDERED: BENADRYL 25 MG CAPSULE PO PRN (00:49)
[2024-02-10] MEDS: MELATONIN PO PRN (01:08)
[2024-02-10 04:55] LABS: Absolute Neutrophil Ct (ANC) 6.55 x10^3/uL (1.4-6.9); BASOPHIL % 0.2 % (0.0-0.4); Basophil (Absolute #) 0.02 x10^3/uL (0-0.4); Eosinophil % 1.9 % (0.00-5.0); Eosinophil (Absolute #) 0.17 x10^3/uL (0-0.5); Hematocrit 34.3 % (35-47); Hemoglobin 9.6 g/dL (12.0-16.0); IMMATURE GRAN # 0.04 x10^3u/L (0.00-0.03); IMMATURE GRAN % 0.4 % (0.00-0.4); Lymphocytes % 18.6 % (24.0-44.0); Mean Cell Volume 93.5 fL (78-100); Mean Corpuscular Hemoglobin 26.2 pg (26-32); Mean Platelet Volume 10.8 fL (7.5-11.0); Monocyte (Absolute #) 0.64 x10^3/uL (0.0-1.3); Neutrophil % 71.9 % (36.0-66.0); Platelet Count 206 x10^3/uL (150-450); Red Blood Count 3.67 x10^6/uL (4.1-5.4); Red Cell Distribution Width 14.6 % (11.5-14.0); White Blood Count 9.1 x10^3/uL (4.0-10.5)
[2024-02-10 05:40] LABS: ALBUMIN 3.1 g/dL (3.5-5.0); ANION GAP 9.7 MEQ/L (5-15); BILIRUBIN,TOTAL 0.5 mg/dL (0.2-1.3); Calcium 8.7 mg/dL (8.4-10.2); Creatinine 1 0.51 mg/dL (0.52-1.04); EST GLOMERULAR FILTRATION RATE 101.6 ML/MIN; MAGNESIUM 2.3 mg/dL (1.6-2.3); Total Protein 6.6 g/dL (6.3-8.2)
[2024-02-10 05:41] LABS: Potassium 3.9 mmol/L (3.5-5.1)
[2024-02-10 07:59] LABS: Slide Review 1 YES
--- NOTE | 2024-02-10 12:22 | PCM.NOTE ---
Date and Time: 02/10/24 1215 Subjective Assessment: 02/10/24 Ms. SANZ is a 68 year old female with a past medical history significant for hypertension, diabetes, hyperlipidemia, COPD, lower extremity edema and UTIs. She presented to the hospital with complaints of increasing weakness and fatigue. She was evaluated in the ER and thought to have a UTI, so she was given some antibiotics and recommended for admission. On admission date of 02/08 she was quite somnolent. She would wake up momentarily but then goes back to sleep again. Initial labs were notable for a WBC of 12.5k and normal kidney function, but bicarb was elevated at 40. U/A demonstrated pyuria with many bacteria, 4+ protein, and ketones. Today she is awake and alert sitting in the chair. Ant ibiotics continued for cellulitis of BLLE and UTI. UC pending. She is agreeable to going to the nursing and admits she cannot take care of herself and her is unable to help her as well. Case management working on placement. She is on baseline oxygen of 5lNC. She denies CP, SOB, abd. pain, N/V/D/ She does have continued chronic weakness. - Review of Systems Constitutional: Weakness, No Fever, No Chills Eyes: No Symptoms Ears, Nose, & Throat: No Symptoms Respiratory: No Cough, No Short Of Breath Cardiac: No Chest Pain, No Edema, No Syncope Abdominal/Gastrointestinal: No Abdominal Pain, No Nausea, No Vomiting, No Diarrhea Genitourinary Symptoms: No Dysuria Musculoskeletal: No Back Pain, No Neck Pain Skin: Cellulitis (BLLE), Skin Lesions (muliple BLLE from incontinence), No Rash Neurological: No Dizziness, No Focal Weakness, No Sensory Changes Psychological: No Symptoms Endocrine: No Symptoms Hematologic/Lymphatic: No Symptoms Immunological/Allergic: No Symptoms Objective Exam General Appearance: no apparent distress, alert, obese Neurologic Exam: alert, 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, cooperative, normal mood/affect, nml cerebellar function, sensation nml, motor weakness, No motor deficits Skin Exam: normal color, warm, dry Eye Exam: PERRL, EOMI, eyes nml inspection Ears, Nose, Throat Exam: normal ENT inspection, pharynx normal, moist mucous membranes Neck Exam: normal inspection, non-tender, supple, full range of motion Respiratory Exam: normal breath sounds, lungs clear, No respiratory distress Cardiovascular Exam: regular rate/rhythm, normal heart sounds Gastrointestinal/Abdomen Exam: soft, No tenderness, No mass Extremity Exam: normal inspection, normal range of motion, tenderness (BLLE with edema and multiple abrasions) Back Exam: normal inspection, normal range of motion, No CVA tenderness, No vertebral tenderness Pelvic Exam: deferred Rectal Exam: deferred Objective Data Vital Signs: Vital Signs - 24 hr Temp Pulse Resp BP Pulse Ox 02/10/24 11:37 97.8 F 102 H 20 134/67 94 L 02/10/24 07:46 96 H 20 93 L 02/10/24 07:24 97.8 F 104 H 20 142/76 90 L 02/10/24 04:00 97.8 F 97 H 22 199/80 99 02/10/24 02:06 102 H 16 90 L 02/09/24 23:26 97.8 F 95 H 17 141/60 99 02/09/24 20:00 97.5 F 91 H 24 131/58 97 02/09/24 18:50 92 H 24 98 02/09/24 16:00 96.7 F 78 20 122/62 94 L 02/09/24 13:29 92 H 18 90 L Pain Assessment - Last Documented Pain Intensity 8 Pain Scale Used 0-10 Pain Scale Intake and Output: Intake & Output 02/08/24 02/09/24 02/10/24 02/11/24 11:59 11:59 11:59 11:59 Intake Total 120 2282 Output Total 800 2000 Balance -680 282 Weight 98.2 kg Lab Results: Lab Results-Last 24 Hours 02/09/24 02/09/24 02/09/24 Range/Units 07:55 16:35 22:22 WBC (4.0-10.5) x10^3/uL RBC (4.1-5.4) x10^6/uL Hgb (12.0-16.0) g/dL Hct (35-47) % MCV (78-100) fL MCH (26-32) pg MCHC (32-36) g/dL RDW (11.5-14.0) % Plt Count (150-450) x10^3/uL MPV (7.5-11.0) fL Gran % (36.0-66.0) % Immature Gran % (Auto) (0.00-0.4) % Nucleat RBC Rel Count (0.00-0.1) % Eos # (Auto) (0-0.5) x10^3/uL Immature Gran # (Auto) (0.00-0.03) x10^3u/L Absolute Lymphs (auto) (1.0-4.6) x10^3/uL Absolute Monos (auto) (0.0-1.3) x10^3/uL Absolute Nucleated RBC (0.00-0.01) x10^3u/L Lymphocytes % (24.0-44.0) % Monocytes % (0.0-12.0) % Eosinophils % (0.00-5.0) % Basophils % (0.0-0.4) % Absolute Granulocytes (1.4-6.9) x10^3/uL Basophils # (0-0.4) x10^3/uL Sodium (135-145) mmol/L Potassium (3.5-5.1) mmol/L Chloride (98-107) mmol/L Carbon Dioxide (22-30) mmol/L Anion Gap (5-15) MEQ/L BUN (7-17) mg/dL Creatinine (0.52-1.04) mg/dL Estimated GFR ML/MIN Glucose (74-106) mg/dL POC Glucometer 55 L 107 H (74 to 106) mg/dL Hemoglobin A1c 6.96 H (4.5-6.0) % Calcium (8.4-10.2) mg/dL Magnesium (1.6-2.3) mg/dL Total Bilirubin (0.2-1.3) mg/dL AST (14-36) U/L ALT (0-35) U/L Alkaline Phosphatase (38-126) U/L Serum Total Protein (6.3-8.2) g/dL Albumin (3.5-5.0) g/dL Slides for Path Review 02/10/24 02/10/24 02/10/24 Range/Units 04:00 04:35 07:01 WBC 9.1 (4.0-10.5) x10^3/uL RBC 3.67 L (4.1-5.4) x10^6/uL Hgb 9.6 L (12.0-16.0) g/dL Hct 34.3 L (35-47) % MCV 93.5 (78-100) fL MCH 26.2 (26-32) pg MCHC 28.0 L (32-36) g/dL RDW 14.6 H (11.5-14.0) % Plt Count 206 (150-450) x10^3/uL MPV 10.8 (7.5-11.0) fL Gran % 71.9 H (36.0-66.0) % Immature Gran % (Auto) 0.4 (0.00-0.4) % Nucleat RBC Rel Count 0.0 (0.00-0.1) % Eos # (Auto) 0.17 (0-0.5) x10^3/uL Immature Gran # (Auto) 0.04 H (0.00-0.03) x10^3u/L Absolute Lymphs (auto) 1.70 (1.0-4.6) x10^3/uL Absolute Monos (auto) 0.64 (0.0-1.3) x10^3/uL Absolute Nucleated RBC 0.00 (0.00-0.01) x10^3u/L Lymphocytes % 18.6 L (24.0-44.0) % Monocytes % 7.0 (0.0-12.0) % Eosinophils % 1.9 (0.00-5.0) % Basophils % 0.2 (0.0-0.4) % Absolute Granulocytes 6.55 (1.4-6.9) x10^3/uL Basophils # 0.02 (0-0.4) x10^3/uL Sodium 139 (135-145) mmol/L Potassium 3.9 (3.5-5.1) mmol/L Chloride 98 (98-107) mmol/L Carbon Dioxide 35 H (22-30) mmol/L Anion Gap 9.7 (5-15) MEQ/L BUN 13 (7-17) mg/dL Creatinine 0.51 L (0.52-1.04) mg/dL Estimated GFR 101.6 ML/MIN Glucose 93 (74-106) mg/dL POC Glucometer 105 (74 to 106) mg/dL Hemoglobin A1c (4.5-6.0) % Calcium 8.7 (8.4-10.2) mg/dL Magnesium 2.3 (1.6-2.3) mg/dL Total Bilirubin 0.50 (0.2-1.3) mg/dL AST 42 H (14-36) U/L ALT 14 (0-35) U/L Alkaline Phosphatase 54 (38-126) U/L Serum Total Protein 6.6 (6.3-8.2) g/dL Albumin 3.1 L (3.5-5.0) g/dL Slides for Path Review YES 02/10/24 Range/Units 11:30 WBC (4.0-10.5) x10^3/uL RBC (4.1-5.4) x10^6/uL Hgb (12.0-16.0) g/dL Hct (35-47) % MCV (78-100) fL MCH (26-32) pg MCHC (32-36) g/dL RDW (11.5-14.0) % Plt Count (150-450) x10^3/uL MPV (7.5-11.0) fL Gran % (36.0-66.0) % Immature Gran % (Auto) (0.00-0.4) % Nucleat RBC Rel Count (0.00-0.1) % Eos # (Auto) (0-0.5) x10^3/uL Immature Gran # (Auto) (0.00-0.03) x10^3u/L Absolute Lymphs (auto) (1.0-4.6) x10^3/uL Absolute Monos (auto) (0.0-1.3) x10^3/uL Absolute Nucleated RBC (0.00-0.01) x10^3u/L Lymphocytes % (24.0-44.0) % Monocytes % (0.0-12.0) % Eosinophils % (0.00-5.0) % Basophils % (0.0-0.4) % Absolute Granulocytes (1.4-6.9) x10^3/uL Basophils # (0-0.4) x10^3/uL Sodium (135-145) mmol/L Potassium (3.5-5.1) mmol/L Chloride (98-107) mmol/L Carbon Dioxide (22-30) mmol/L Anion Gap (5-15) MEQ/L BUN (7-17) mg/dL Creatinine (0.52-1.04) mg/dL Estimated GFR ML/MIN Glucose (74-106) mg/dL POC Glucometer 189 H (74 to 106) mg/dL Hemoglobin A1c (4.5-6.0) % Calcium (8.4-10.2) mg/dL Magnesium (1.6-2.3) mg/dL Total Bilirubin (0.2-1.3) mg/dL AST (14-36) U/L ALT (0-35) U/L Alkaline Phosphatase (38-126) U/L Serum Total Protein (6.3-8.2) g/dL Albumin (3.5-5.0) g/dL Slides for Path Review Radiology Exams: Radiology Procedures Category Date Time Status CHEST 1 VIEW (PORTABLE) Stat Exams 02/08/24 23:39 Completed Multi-Disciplinary Progress Notes: Multi-Disciplinary Progress Notes 02/09/24 13:03 Case Management Note by Alicia Palacios REPORTS PATIENT WEARS OXYGEN AT HOME AND ALWAYS HAS HIM PUT IT AT 10L. HE SAYS IF ITS ANY LOWER SHE COMPLAINS SHE CAN'T BREATH. S/W MICHELET PATIENT'S ORDERS ARE FOR 5L AT HOME 29/03 Initialized on 02/09/24 13:03 - END OF NOTE 02/09/24 12:59 Case Management Note by Alicia Palacios REFERRAL FAXED TO [facility] AFTER TALKING WITH . PILAR BENSON WILL FAX PT EVAL WHEN COMPLETE PASRR COMPLETE- NO LEVEL II REQUIRED, COPIES FAXED WITH REFERRAL AND PLACED IN CHART Initialized on 02/09/24 12:59 - END OF NOTE Assessment/Plan (1) UTI (urinary tract infection) Current Visit: Yes Status: Acute Assessment & Plan: - Levaquin IV - WBC 9.1 - IVF - UC pending Code(s): N39.0 - URINARY TRACT INFECTION, SITE NOT SPECIFIED (2) Alkalosis, metabolic Current Visit: Yes Status: Acute Assessment & Plan: - improving - On 5lNC chronic- at baseline today - refuses cpap - Hx COPD - RT eval and treat Code(s): E87.3 - ALKALOSIS (3) Bilateral lower leg cellulitis Current Visit: No Status: Acute Assessment & Plan: - continue Levaquin- monitor - Multiple lesions of BLLE, has urinary and bowel incontinence at home Code(s): L03.116 - CELLULITIS OF LEFT LOWER LIMB; L03.115 - CELLULITIS OF RIGHT LOWER LIMB (4) Generalized weakness Current Visit: No Status: Chronic Assessment & Plan: - chronic - agreeable to group home placement - PT eval Code(s): R53.1 - WEAKNESS (5) HTN (hypertension) Current Visit: No Status: Chronic Qualifiers: Hypertension type: primary hypertension Qualified Code(s): I10 - Essential (primary) hypertension Assessment & Plan: Blood pressure under reasonable control 1. Continue bp meds 2. Low Na diet 3. Monitor blood pressure readings Code(s): I10 - ESSENTIAL (PRIMARY) HYPERTENSION (6) Obesity (BMI 30-39.9) Current Visit: Yes Status: Chronic Assessment & Plan: - Advised diet and exercise control Code(s): E66.9 - OBESITY, UNSPECIFIED (7) Type 2 diabetes mellitus with diabetic nephropathy Current Visit: Yes Status: Chronic Assessment & Plan: - Humalog s/s, accuchecks ac/hs - metformin, glimepiride - A1C 6.96- Controlled VTE: Lovenox PPI: Protonix Next of KIN: - [place] Sanz [phone] D/C plan: tomorrow? Code status:Full Code(s): E11.21 - TYPE 2 DIABETES MELLITUS WITH DIABETIC NEPHROPATHY
[2024-02-10] MEDS ORDERED: Tums EX 750 MG PO PRN (16:30)
[2024-02-10] MEDS ORDERED: HUMALOG SQ PRN (16:30)
[2024-02-11] MEDS: Levofloxacin 500 MG Tablet PO ONE (00:22)
[2024-02-11 04:49] LABS: Hematocrit 29.9 % (34.1-44.9); Hemoglobin 8.6 g/dL (11.2-15.7); Mean Cell Volume 90.6 fL (79.4-94.8); Mean Corpuscular Hemoglobin 26.1 pg (25.6-32.2); Mean Corpuscular Hgb Concent. 28.8 g/dL (32.2-35.5); Mean Platelet Volume 10.6 fL (9.4-12.3); Platelet Count 245 x10^3/uL (182-369); Red Cell Distribution Width 14.8 % (11.7-14.4); White Blood Count 9.3 x10^3/uL (3.98-10.04)
[2024-02-11 05:23] LABS: ALBUMIN 3.1 g/dL (3.5-5.0); ANION GAP 3.1 MEQ/L (5-15); BILIRUBIN,TOTAL 0.3 mg/dL (0.2-1.3); Calcium 8.7 mg/dL (8.4-10.2); Creatinine 1 0.67 mg/dL (0.52-1.04); EST GLOMERULAR FILTRATION RATE 95.2 ML/MIN; Potassium 3.8 mmol/L (3.5-5.1); Total Protein 6.3 g/dL (6.3-8.2)
[2024-02-11] MEDS ORDERED: APRESOLINE 20 MG/ML INJ IV PRN (07:53)
[2024-02-11] MEDS: Cozaar 50 MG PO SCH (08:15)
[2024-02-11] MEDS: REQUIP 2MG TAB PO SCH (08:15)
[2024-02-11 08:46] LABS: Calcium 8.8 mg/dL (8.4-10.2); Creatinine 1 0.7 mg/dL (0.52-1.04); EST GLOMERULAR FILTRATION RATE 94.2 ML/MIN; Potassium 3.5 mmol/L (3.5-5.1)
[2024-02-11 08:50] LABS: Slide Review YES
[2024-02-11 09:01] LABS: ANION GAP 6.5 MEQ/L (5-15)
[2024-02-11 11:56] VITALS: RESP 16; TEMP 97.7; O2SAT 94
--- NOTE | 2024-02-11 11:59 | PCM.DS ---
Discharge Summary Date of Admission: 02/09/24 04:40 Date of Discharge: 02/11/24 Admitting Physician: ITZ CHRISTOPHER MD Primary Care Provider: DEB ESQUIVEL Allergies Allergies codeine Allergy (Intermediate, Verified 02/08/24 23:18) rash, itching cefaclor [From Ceclor] Allergy (Mild, Verified 02/08/24 23:18) Rash Penicillins Allergy (Mild, Verified 02/08/24 23:18) Swelling bacitracin [From Neosporin ([id number])] Adverse Reaction (Mild, Verified 02/08/24 23:18) Itching bacitracin zinc [From Neosporin ([id number])] Adverse Reaction (Mild, Verified 02/08/24 23:18) Itching levofloxacin [From Levaquin] Adverse Reaction (Mild, Verified 02/08/24 23:18) itch neomycin sulfate [From Neosporin ([id number]-[id number])] Adverse Reaction (Mild, Verified 02/08/24 23:18) itch polymyxin B [From Neosporin ([id number]-nve-[id number])] Adverse Reaction (Mild, Verified 02/08/24 23:18) Itching Hospital Summary - Hospital Course Hospital Course: 02/10/24 Ms. HODGES is a 68 year old female with a past medical history significant for hypertension, diabetes, hyperlipidemia, COPD, lower extremity edema and UTIs. She presented to the hospital with complaints of increasing weakness and fatigue. She was evaluated in the ER and thought to have a UTI, so she was given some antibiotics and recommended for admission. On admission date of 02/08 she was quite somnolent. She would wake up momentarily but then goes back to sleep again. Initial labs were notable for a WBC of 12.5k and normal kidney function, but bicarb was elevated at 40. U/A demonstrated pyuria with many bacteria, 4+ protein, and ketones. Today she is awake and alert sitting in the chair. Antibiotics continued for cellulitis of BLLE and UTI. UC pending. She is agreeable to going to the nursing and admits she cannot take care of herself and her is unable to help her as well. Case management working on placement. She is on baseline oxygen of 5lNC. She denies CP, SOB, abd. pain, N/V/D. She does have continued chronic weakness. 02/11/24 Pt sitting up in bed. She is c/o restless legs and requip restarted. This was stopped on admission as she was very sleepy. Bp elevated today losartan increa sed however this did not help much. HCTZ started will trend BP, if OK then she can d/c to [facility]CF as planned this afternoon. She was c/o BL hip pain today and XR's ordered but she refused as she stated she could not lay flat. Levaquin changed to PO last night as pt lost her IV and staff unable to get a new one. Will continue medication OP. UC pending- will continue to follow OP. She denies CP, SOB, abd. pain, N/V/D. She continues to have chronic weakness, - Vitals & Intake/Output Vital Signs: Vital Signs Temperature 98 F 02/11/24 07:44 Pulse Rate 106 H 02/11/24 07:44 Respiratory Rate 20 02/11/24 07:44 Blood Pressure 194/79 02/11/24 07:44 O2 Sat by Pulse Oximetry 93 L 02/11/24 07:44 Intake & Output: Intake & Output 02/08/24 02/09/24 02/10/24 02/11/24 11:59 11:59 11:59 11:59 Intake Total 120 2282 2386 Output Total 800 2000 Balance -464 747 6948 Weight 98.2 kg - Lab Result Diagrams: 02/11/24 04:22 02/11/24 08:14 Lab Results-Last 24 Hrs: Lab Results-Last 24 Hours 02/10/24 02/10/24 02/11/24 Range/Units 16:08 21:44 04:22 WBC 9.3 (3.98-10.04) x10^3/uL RBC 3.30 L (3.93-5.22) x10^6/uL Hgb 8.6 L (11.2-15.7) g/dL Hct 29.9 L (34.1-44.9) % MCV 90.6 (79.4-94.8) fL MCH 26.1 (25.6-32.2) pg MCHC 28.8 L (32.2-35.5) g/dL RDW 14.8 H (11.7-14.4) % Plt Count 245 (182-369) x10^3/uL MPV 10.6 (9.4-12.3) fL Sodium (135-145) mmol/L Potassium (3.5-5.1) mmol/L Chloride (98-107) mmol/L Carbon Dioxide (22-30) mmol/L Anion Gap (5-15) MEQ/L BUN (7-17) mg/dL Creatinine (0.52-1.04) mg/dL Estimated GFR ML/MIN Glucose (74-106) mg/dL POC Glucometer 66 L 173 H (74 to 106) mg/dL Calcium (8.4-10.2) mg/dL Total Bilirubin (0.2-1.3) mg/dL AST (14-36) U/L ALT (0-35) U/L Alkaline Phosphatase (38-126) U/L Serum Total Protein (6.3-8.2) g/dL Albumin (3.5-5.0) g/dL Slides for Path Review YES 02/11/24 02/11/24 02/11/24 Range/Units 04:22 07:30 08:14 WBC (3.98-10.04) x10^3/uL RBC (3.93-5.22) x10^6/uL Hgb (11.2-15.7) g/dL Hct (34.1-44.9) % MCV (79.4-94.8) fL MCH (25.6-32.2) pg MCHC (32.2-35.5) g/dL RDW (11.7-14.4) % Plt Count (182-369) x10^3/uL MPV (9.4-12.3) fL Sodium 140 142 (135-145) mmol/L Potassium 3.8 3.5 (3.5-5.1) mmol/L Chloride 102 102 (98-107) mmol/L Carbon Dioxide 39 H 37 H (22-30) mmol/L Anion Gap 3.1 L 6.5 (5-15) MEQ/L BUN 12 11 (7-17) mg/dL Creatinine 0.67 0.70 (0.52-1.04) mg/dL Estimated GFR 95.2 94.2 ML/MIN Glucose 185 H 169 H (74-106) mg/dL POC Glucometer 138 H (74 to 106) mg/dL Calcium 8.7 8.8 (8.4-10.2) mg/dL Total Bilirubin 0.30 (0.2-1.3) mg/dL AST 22 (14-36) U/L ALT 15 (0-35) U/L Alkaline Phosphatase 49 (38-126) U/L Serum Total Protein 6.3 (6.3-8.2) g/dL Albumin 3.1 L (3.5-5.0) g/dL Slides for Path Review 02/11/24 Range/Units 11:47 WBC (3.98-10.04) x10^3/uL RBC (3.93-5.22) x10^6/uL Hgb (11.2-15.7) g/dL Hct (34.1-44.9) % MCV (79.4-94.8) fL MCH (25.6-32.2) pg MCHC (32.2-35.5) g/dL RDW (11.7-14.4) % Plt Count (182-369) x10^3/uL MPV (9.4-12.3) fL Sodium (135-145) mmol/L Potassium (3.5-5.1) mmol/L Chloride (98-107) mmol/L Carbon Dioxide (22-30) mmol/L Anion Gap (5-15) MEQ/L BUN (7-17) mg/dL Creatinine (0.52-1.04) mg/dL Estimated GFR ML/MIN Glucose (74-106) mg/dL POC Glucometer 180 H (74 to 106) mg/dL Calcium (8.4-10.2) mg/dL Total Bilirubin (0.2-1.3) mg/dL AST (14-36) U/L ALT (0-35) U/L Alkaline Phosphatase (38-126) U/L Serum Total Protein (6.3-8.2) g/dL Albumin (3.5-5.0) g/dL Slides for Path Review Micro Results-Entire Visit: Accuchecks Date 02/11/24 Date 02/10/24 Time 07:43 - Radiology Exams Ordered Rad Exams-Entire Visit: Radiology Procedures Category Date Time Status HIP BARBI (4V) INCL PELV IF DONE Routine Exams 02/11/24 08:01 Ordered - Procedures and Test Procedures and Tests throughout Hospitalization: Therapy Orders & Screens 02/09/24 05:49 OT Screen per Nursing Assess ONCE Comment: Protocol Order Physician Instructions: Greater than 3 points order OT Admission Screening Reason For Exam: Triggered on Admission Diagnosis: UTI, dehydration, weakness Open Wound/Cellutlitis/Pressure Ulcers: Yes Acute Fx/ORIF/Change in wt bearing status: No Severe MUSCULOSKELETAL pain: No ADL Dysfunction: Yes Acute CVA w/Hemiparesis/Hemiplegia: No Decreased Functional Mobility/Strength: Yes Sprain/Strain: No Acute Post-op Mobility Dysfunction: No Total Points: 9 PT Screen per Nursing Assess ONCE Comment: Protocol Order Physician Instructions: Greater than 3 points order PT Admission Screenin Reason For Exam: Triggered on Admission Diagnosis: UTI, dehydration, weakness Open Wound/Cellutlitis/Pressure Ulcers: Yes Acute Fx/ORIF/Change in wt bearing status: No Severe MUSCULOSKELETAL pain: No ADL Dysfunction: Yes Acute CVA w/Hemiparesis/Hemiplegia: No Decreased Functional Mobility/Strength: Yes Sprain/Strain: No Acute Post-op Mobility Dysfunction: No Total Points: 9 RT Screen per Nursing Assess ONCE Comment: Protocol Order Physician Instructions: Greater than 3 points order RT Admission Screen Reason For Exam: Triggered on Admission Diagnosis: UTI, dehydration, weakness Diagnosis: UTI, dehydration, weakness Pneumonia: No Home O2: Yes Asthma: No CHF: Yes Home CPAP/BIPAP: No: unable to obtain at this time Home Nebs/MDI: No: unable to obtain at this time Total Points: 8 Smoking Cessation Education ONCE Comment: Diagnosis: UTI, dehydration, weakness Smoking Status: Current every day smoker How long have you smoked: 50 years Have you smoked in the past 12 months: Yes Approximately how many cigarettes per day: 1/3 pack per day Do you dip or chew tobacco: No If,Former Smoker,when did you quit: WEEK 02/09/24 06:14 PT Eval & Treat (MD Order) ONCE Reason for Eval:: weakness Diagnosis: UTI, dehydration, weakness Respiratory Therapy Consult ONCE Comment: Reason For Exam: Diagnosis: UTI, dehydration, weakness 02/09/24 07:49 RT Miscellaneous Order ROUTINE Comment: Physician Instructions: Reason For Exam: eval and treat for elevated CO2 Diagnosis: UTI, dehydration, weakness 02/09/24 08:05 Oxygen Nasal Cannula 5 lpm Comment: Diagnosis: UTI, dehydration, weakness 02/09/24 08:06 Respiratory Therapy Assessment DAILY Comment: Diagnosis: UTI, dehydration, weakness Discharge Exam General Appearance: no apparent distress, alert, obese Neurologic Exam: alert, 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, cooperative, normal mood/affect, nml cerebellar function, sensation nml, motor weakness, No motor deficits Eye Exam: PERRL, EOMI, eyes nml inspection Ears, Nose, Throat Exam: normal ENT inspection, pharynx normal, moist mucous membranes Neck Exam: normal inspection, non-tender, supple, full range of motion Respiratory Exam: normal breath sounds, lungs clear, No respiratory distress Cardiovascular Exam: regular rate/rhythm, normal heart sounds, edema (BLLE non- pitting) Gastrointestinal/Abdomen Exam: soft, No tenderness, No mass Pelvic Exam: deferred Rectal Exam: deferred Back Exam: normal inspection, normal range of motion, No CVA tenderness, No vertebral tenderness Extremity Exam: normal inspection, normal range of motion Skin Exam: normal color, warm, dry, other (multiple abrasion to BLLE with erythema in multiple stages of healing- see pics in chart by nursing) Final Diagnosis/Problem List - Final Discharge Diagnosis/Problem (1) UTI (urinary tract infection) Current Visit: Yes Status: Acute Code(s): N39.0 - URINARY TRACT INFECTION, SITE NOT SPECIFIED (2) Alkalosis, metabolic Current Visit: Yes Status: Acute Code(s): E87.3 - ALKALOSIS (3) Bilateral lower leg cellulitis Current Visit: No Status: Acute Code(s): L03.116 - CELLULITIS OF LEFT LOWER LIMB; L03.115 - CELLULITIS OF RIGHT LOWER LIMB (4) Generalized weakness Current Visit: No Status: Chronic Code(s): R53.1 - WEAKNESS (5) HTN (hypertension) Current Visit: No Status: Chronic Code(s): I10 - ESSENTIAL (PRIMARY) HYPERTENSION (6) Obesity (BMI 30-39.9) Current Visit: Yes Status: Chronic Code(s): E66.9 - OBESITY, UNSPECIFIED (7) Type 2 diabetes mellitus with diabetic nephropathy Current Visit: Yes Status: Chronic Assessment & Plan: (1) UTI (urinary tract infection) Current Visit: Yes Status: Acute Assessment & Plan: - Levaquin IV - WBC 9.1 - IVF - UC pending- will continue to follow OP Code(s): N39.0 - URINARY TRACT INFECTION, SITE NOT SPECIFIED (2) Alkalosis, metabolic Current Visit: Yes Status: Acute Assessment & Plan: - improving - On 5lNC chronic- at baseline today - refuses cpap - Hx COPD - RT eval and treat Code(s): E87.3 - ALKALOSIS (3) Bilateral lower leg cellulitis Current Visit: No Status: Acute Assessment & Plan: - continue Levaquin- monitor - Multiple lesions of BLLE, has urinary and bowel incontinence at home Code(s): L03.116 - CELLULITIS OF LEFT LOWER LIMB; L03.115 - CELLULITIS OF RIGHT LOWER LIMB (4) Generalized weakness Current Visit: No Status: Chronic Assessment & Plan: - chronic - agreeable to longterm placement - PT eval Code(s): R53.1 - WEAKNESS (5) HTN (hypertension) Current Visit: No Status: Chronic Qualifiers: Hypertension type: primary hypertension Qualified Code(s): I10 - Essential (primary) hypertension Assessment & Plan: Blood pressure under reasonable control 1. Continue bp meds 2. Low Na diet 3. Monitor blood pressure readings 02/10 - BP elevated today - increased Losartan- did not help much - added HCTZ Code(s): I10 - ESSENTIAL (PRIMARY) HYPERTENSION (6) Obesity (BMI 30-39.9) Current Visit: Yes Status: Chronic Assessment & Plan: - Advised diet and exercise control Code(s): E66.9 - OBESITY, UNSPECIFIED (7) Type 2 diabetes mellitus with diabetic nephropathy Current Visit: Yes Status: Chronic Assessment & Plan: - Humalog s/s, accuchecks ac/hs - metformin, glimepiride - A1C 6.96- Controlled Code(s): E11.21 - TYPE 2 DIABETES MELLITUS WITH DIABETIC NEPHROPATHY - Discharge Discharge Date: 02/11/24 Disposition: Home, Self-Care Condition: Good Prescriptions: New Nystatin Powder 15 gm [Nystop Powder 15 gm] 1 gm TP BID 10 Days #15 misc Hydrochlorothiazide 25 mg [hydroDIURIL 25 MG] 12.5 mg PO DAILY 30 Days #30 tablet Continue Ropinirole HCl 3 mg PO TID Glimepiride 1 mg PO DAILY Bumetanide 2 mg PO DAILY Atorvastatin Calcium [Lipitor] 20 mg PO DAILY Metformin HCl [Metformin HCl ER] 500 mg PO DAILY Losartan Potassium [Cozaar] 25 mg PO DAILY Follow up with: DEB ESQUIVEL MD [Primary Care Provider] -
[2024-02-11 12:03] VITALS: BP 163/71; PULSE 94
[2024-02-11] MEDS: hydroDIURIL 25 MG PO SCH ×2 (13:00→13:10)
== END 2024-02-11 14:56 ==
LOC: ED 23:06 → MED SURG 02-09 04:40
PROVIDERS: ADMIT Internal Medicine Nephrology; ATTEND Internal Medicine Nephrology
DX: N39.0 Urinary tract infection, site not specified (principal); I10 Essential (primary) hypertension; Z59.12 Inadequate housing utilities; E78.5 Hyperlipidemia, unspecified; E87.3 Alkalosis; L03.116 Cellulitis of left lower limb; L03.115 Cellulitis of right lower limb; R53.1 Weakness; E66.9 Obesity, unspecified; E11.21 Type 2 diabetes mellitus with diabetic nephropathy; F17.200 Nicotine dependence, unspecified, uncomplicated; Z79.899 Other long term (current) drug therapy
CPT/HCPCS: 36415; 36600; 71045; 80048; 80053; 81001; 82375; 82570; 82803; 82947; 83036; 83735; 84156; 85025; 85027; 87077; 87086; 87186; 94640; 94760; 96360; 96365; 97161; 99284; P9612; Q3014; G0378; J1650; J1817; J1956; A9270-GY

== ENCOUNTER 2024-10-04 14:58 | Emergency (ER) | payer MEDICARE, OTHER ==
[2024-10-04 17:07] VITALS: BP 132/74; PULSE 89; RESP 20; TEMP 97; O2SAT 92
--- NOTE | 2024-10-04 17:49 | ERPHSYRPT ---
- History of Present Illness Time Seen by Provider: 10/04/24 15:06 Patient Subjective Stated Complaint: BLE pain and swelling Triage Nursing Assessment: Patient brought into per w/c and transferred to bed with assist of 2. Patient A+O X 3. Patient's skin pink, warm and dry. Patient wears home O2 at 4 liters per N/C. Patient currently resides at [facility]. Patient sent to ER due to BLE swelling, redness and warmth. Patient has chronic venous stasis ulcers to BLE and gets a daily dressing change. Nurses concerned due to patient's increased pain to BLE. Physician History: 68 years old female with multiple medical problems including chronic respiratory failure secondary to COPD on 4 L oxygen, hypertension, diabetes mellitus, chronic lower extremity swelling with venous stasis resident of half-way is sent in ER with increasing swelling and redness in the lower legs. Patient has been started on antibiotics at half-way. Patient denies any increased swelling redness or pain. Patient does not want to be seen in the ER and wants to go back. She denies increase in the oxygen need, difficulty breathing, chest pain but what she has at her baseline from COPD. No fever or chills reported. Patient is not confused or altered at all, moving all 4 extremities. She understands the risk of leaving without workup would not only delay the diagnosis, worsening of underlying condition but she still wants to go back. She does not want any blood work or imaging done. Patient will be transferred back to half-way. Advised to continue with antibiotics and current medications. Allergies/Adverse Reactions: codeine Allergy (Intermediate, Verified 10/04/24 15:16) rash, itching cefaclor [From Ceclor] Allergy (Mild, Verified 10/04/24 15:16) Rash Penicillins Allergy (Mild, Verified 10/04/24 15:16) Swelling bacitracin [From Neosporin (goq-bvd-[id number])] Adverse Reaction (Mild, Verified 10/04/24 15:16) Itching bacitracin zinc [From Neosporin ([id number]-[id number])] Adverse Reaction (Mild, Verified 10/04/24 15:16) Itching levofloxacin [From Levaquin] Adverse Reaction (Mild, Verified 10/04/24 15:16) itch neomycin sulfate [From Neosporin (aer-luw-sygwm)] Adverse Reaction (Mild, Verified 10/04/24 15:16) itch polymyxin B [From Neosporin (gwr-[id number])] Adverse Reaction (Mild, Verified 10/04/24 15:16) Itching Home Medications: Ropinirole HCl 3 mg PO TID 01/23/23 [History] Atorvastatin Calcium [Lipitor] 20 mg PO DAILY 11/13/23 [History] Bumetanide 2 mg PO DAILY 11/13/23 [History] Glimepiride 1 mg PO DAILY 11/13/23 [History] Losartan Potassium [Cozaar] 25 mg PO DAILY 02/09/24 [History] Metformin HCl [Metformin HCl ER] 500 mg PO DAILY 02/09/24 [History] Hx Tetanus, Diphtheria Vaccination/Date Given: Yes Hx Influenza Vaccination/Date Given: No Hx Pneumococcal Vaccination/Date Given: No Immunizations Up to Date: Yes Travel Risk - International Travel Have you traveled outside of the country in past 3 weeks: No - Emerging Infectious Disease Are you exhibiting symptoms associated with any current EIDs: No Symptoms: Shortness of Breath - Review of Systems Respiratory: Dyspnea, Dyspnea on Exertion (MEJIA) Cardiac: Edema Abdominal/Gastrointestinal: No Symptoms Skin: Rash, Skin Lesions Neurological: No Symptoms Endocrine: No Symptoms - Past Medical History Pertinent Past Medical History: Yes Neurological History: No Pertinent History ENT History: No Pertinent History Cardiac History: Congestive Heart Failure, Hypertension, Peripheral Vascular Disease Respiratory History: COPD, Emphysema Endocrine Medical History: Diabetes Type II Musculoskeletal History: Fibromyalgia GI Medical History: No Pertinent History History: Other Psycho-Social History: No Pertinent History Female Reproductive Disorders: No Pertinent History Other Medical History: Stress Incontinence - Past Surgical History Past Surgical History: Yes Neuro Surgical History: No Pertinent History Cardiac: No Pertinent History Respiratory: No Pertinent History Gastrointestinal: Cholecystectomy Genitourinary: No Pertinent History Musculoskeletal: No Pertinent History Female Surgical History: Tubal Ligation Significant Family History: no pertinent family hx - Social History Smoking Status: Former smoker How long have you smoked: 50 years Exposure to second hand smoke: No Drug Use: none Patient Lives Alone: No - Social Determinants of Health Will the patient participate in the screening: Yes Do you worry about a steady place to live?: No Do you have any problems with any of the following?: No known problems In the past 12 months,have you had to go without utilities?: No Transportation Issues: No Has anyone in your support network made you feel unsafe?: No Have you or anyone in your house had to go without enough: No Comment: Patient resides at [facility] - Nursing Vital Signs Nursing Vital Signs: Initial Vital Signs Temperature 96.9 F 10/04/24 15:17 Pulse Rate 82 10/04/24 15:17 Respiratory Rate 19 10/04/24 15:17 Blood Pressure 132/68 10/04/24 15:17 O2 Sat by Pulse Oximetry 95 10/04/24 15:17 Pain Scale Pain Intensity 4 - Physical Exam General Appearance: no apparent distress, alert Eye Exam: PERRL/EOMI Ears, Nose, Throat Exam: pharynx normal Neck Exam: normal inspection, full range of motion Respiratory Exam: diminished breath sounds Cardiovascular Exam: regular rate/rhythm, normal heart sounds Extremity Exam: inflammation, swelling Neurologic Exam: alert, 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, cooperative Skin Exam: normal color SpO2 Interpretation: O2 applied SpO2: 92 O2 Delivery: Nasal Cannula - Progress Progress: unchanged Progress Note: 10/04/24 18:01 68 years old female with multiple medical problems including chronic respiratory failure secondary to COPD on 4 L oxygen, hypertension, diabetes mellitus, chronic lower extremity swelling with venous stasis resident of half-way is sent in ER with increasing swelling and redness in the lower legs. Patient has been started on antibiotics at half-way. Patient denies any increased swelling redness or pain. Patient does not want to be seen in the ER and wants to go back. She denies increase in the oxygen need, difficulty breathing, chest pain but what she has at her baseline from COPD. No fever or chills reported. Patient is not confused or altered at all, moving all 4 extremities. She understands the risk of leaving without workup would not only delay the diagnosis, worsening of underlying condition but she still wants to go back. She does not want any blood work or imaging done. Patient will be transferred back to half-way. Advised to continue with antibiotics and current medications. Discussed with : Other Will see patient in: ED Medical Desision Making - Independent Historian Additional History obtained from: Academic Counselor/EMT - Departure Departure Disposition: Home Clinical Impression: Swelling of both lower extremities, Cellulitis Condition: Stable Critical Care Time: No Referrals: DEB ESQUIVEL MD [Primary Care Provider] - Follow up with PCP 1 day Instructions: Cellulitis (skin infection) in adults - Discharge instructions Additional Instructions: Continue with your current medications/antibiotics. Follow-up with primary care for reevaluation. Return to ER for worsening of swelling, redness or if develop fever chills etc.
== END 2024-10-04 18:53 | disposition home or self-care (01) ==
LOC: ED 14:58
DX: R60.0 Localized edema (principal); L03.90 Cellulitis, unspecified; E11.9 Type 2 diabetes mellitus without complications; I11.0 Hypertensive heart disease with heart failure; I50.9 Heart failure, unspecified; Z79.84 Long term (current) use of oral hypoglycemic drugs; Z79.899 Other long term (current) drug therapy; Z99.81 Dependence on supplemental oxygen
CPT/HCPCS: 99281

== ENCOUNTER 2024-10-06 02:07 | Inpatient (IN) | payer MEDICARE, OTHER ==
[2024-10-06 02:52] LABS: Absolute Neutrophil Ct (ANC) 5.89 x10^3/uL (1.56-6.13); BASOPHIL % 0.3 % (0.1-1.2); Basophil (Absolute #) 0.03 x10^3/uL (0.01-0.08); Eosinophil % 2.2 % (0.7-5.8); Hematocrit 32.6 % (34.1-44.9); Hemoglobin 9.2 g/dL (11.2-15.7); IMMATURE GRAN # 0.11 x10^3u/L (0.001-0.031); IMMATURE GRAN % 1.2 % (0.001-0.429); Lymphocyte (Absolute #) 2.28 x10^3/uL (1.18-3.74); Lymphocytes % 24.9 % (19.3-51.7); Mean Cell Volume 94.5 fL (79.4-94.8); Mean Corpuscular Hemoglobin 26.7 pg (25.6-32.2); Mean Corpuscular Hgb Concent. 28.2 g/dL (32.2-35.5); Mean Platelet Volume 9.6 fL (9.4-12.3); Monocyte (Absolute #) 0.64 x10^3/uL (0.24-0.86); Neutrophil % 64.4 % (34.0-71.1); Platelet Count 297 x10^3/uL (182-369); Red Blood Count 3.45 x10^6/uL (3.93-5.22); Red Cell Distribution Width 16.7 % (11.7-14.4); White Blood Count 9.2 x10^3/uL (3.98-10.04)
[2024-10-06] MEDS: DUONEB 0.5-3 MG/3 ml Neb IH ONE (02:56)
[2024-10-06 03:05] LABS: ALBUMIN 3.7 g/dL (3.5-5.0); BILIRUBIN,TOTAL 0.3 mg/dL (0.2-1.3); Calcium 8.6 mg/dL (8.4-10.2); Creatinine 1 0.87 mg/dL (0.52-1.04); EST GLOMERULAR FILTRATION RATE 72.5 ML/MIN; MAGNESIUM 2.2 mg/dL (1.6-2.3); Potassium 4.6 mmol/L (3.5-5.1); Total Protein 7.5 g/dL (6.3-8.2)
[2024-10-06 03:21] LABS: ANION GAP 11.6 MEQ/L (5-15)
[2024-10-06 03:23] LABS: PROCALCITONIN 0.074 ng/mL (0.030-0.080)
[2024-10-06 03:29] LABS: INFLUENZA A NEGATIVE (NEGATIVE); INFLUENZA B NEGATIVE (NEGATIVE); RESPIRATORY SYNCTIAL VIRUS NEGATIVE (NEGATIVE); SARS-CoV-2 Xpert Express NEGATIVE (NEGATIVE)
--- NOTE | 2024-10-06 04:06 | ERPHSYRPT ---
- History of Present Illness Time Seen by Provider: 10/06/24 02:12 Source: patient Exam Limitations: no limitations Patient Subjective Stated Complaint: c/o SOB and alterned mental status Triage Nursing Assessment: patient brought to ED by ambulance with c/o shortness of breath and altered mental status. Envive nurse states that this isn't her ba sudhakarine. vitals wnl, skin w/n/d, patient was able to answer questions correctly upon arrival, denies any pain, wheezing heard in upper lung sounds, patient normally wears 5 Liters at home, patient doesn't appear to be in any distress at this time. Physician History: 68 years old female with multiple medical problems including chronic respiratory failure secondary to COPD on 5 L oxygen, congestive heart failure, diabetes mellitus, fibromyalgia, chronic lower extremity swelling/venous stasis and ulcers, resident of [facility] is sent in ER for altered mental status and difficulty breathing. Patient on presentation is awake alert and fairly oriented and answering most of the questions appropriately. She is receiving breathing treatment and on reevaluation her oxygen is in mid 90s. Not a good historian and history is limited. Allergies/Adverse Reactions: codeine Allergy (Intermediate, Verified 10/06/24 02:40) rash, itching cefaclor [From Ceclor] Allergy (Mild, Verified 10/06/24 02:40) Rash Penicillins Allergy (Mild, Verified 10/06/24 02:40) Swelling bacitracin [From Neosporin ([id number])] Adverse Reaction (Mild, Verified 10/06/24 02:40) Itching bacitracin zinc [From Neosporin ([id number])] Adverse Reaction (Mild, V erified 10/06/24 02:40) Itching levofloxacin [From Levaquin] Adverse Reaction (Mild, Verified 10/06/24 02:40) itch neomycin sulfate [From Neosporin ([id number])] Adverse Reaction (Mild, Verified 10/06/24 02:40) itch polymyxin B [From Neosporin ([id number])] Adverse Reaction (Mild, Verified 10/06/24 02:40) Itching Home Medications: Ropinirole HCl 3 mg PO TID 01/23/23 [History] Atorvastatin Calcium [Lipitor] 20 mg PO DAILY 11/13/23 [History] Bumetanide 2 mg PO DAILY 11/13/23 [History] Glimepiride 1 mg PO DAILY 11/13/23 [History] Losartan Potassium [Cozaar] 25 mg PO DAILY 02/09/24 [History] Metformin HCl [Metformin HCl ER] 500 mg PO DAILY 02/09/24 [History] Hx Tetanus, Diphtheria Vaccination/Date Given: Yes Hx Influenza Vaccination/Date Given: No Hx Pneumococcal Vaccination/Date Given: No Travel Risk - International Travel Have you traveled outside of the country in past 3 weeks: No - Emerging Infectious Disease Are you exhibiting symptoms associated with any current EIDs: Yes Symptoms: Shortness of Breath - Review of Systems Constitutional: No Symptoms Ears, Nose, & Throat: No Symptoms Respiratory: Cough, Dyspnea Cardiac: Edema Abdominal/Gastrointestinal: No Symptoms Musculoskeletal: Arthralgias, Back Pain Skin: Cellulitis Neurological: No Symptoms Hematologic/Lymphatic: No Symptoms - Past Medical History Pertinent Past Medical History: Yes Neurological History: No Pertinent History ENT History: No Pertinent History Cardiac History: Congestive Heart Failure, Hypertension, Peripheral Vascular Disease Respiratory History: COPD, Emphysema Endocrine Medical History: Diabetes Type II Musculoskeletal History: Fibromyalgia GI Medical History: No Pertinent History History: Other Psycho-Social History: No Pertinent History Female Reproductive Disorders: No Pertinent History Other Medical History: Stress Incontinence - Past Surgical History Past Surgical History: Yes Neuro Surgical History: No Pertinent History Cardiac: No Pertinent History Respiratory: No Pertinent History Gastrointestinal: Cholecystectomy Genitourinary: No Pertinent History Musculoskeletal: No Pertinent History Female Surgical History: Tubal Ligation Significant Family History: no pertinent family hx - Social History Smoking Status: Current every day smoker How long have you smoked: 50 years Exposure to second hand smoke: Yes Drug Use: none Patient Lives Alone: No - Social Determinants of Health Will the patient participate in the screening: Declined to provide - Nursing Vital Signs Nursing Vital Signs: Initial Vital Signs Pulse Rate 79 10/06/24 02:09 Respiratory Rate 30 H 10/06/24 02:09 Blood Pressure 122/68 10/06/24 02:09 O2 Sat by Pulse Oximetry 100 10/06/24 02:09 Pain Scale Pain Intensity 0 - Physical Exam General Appearance: no apparent distress, alert Eye Exam: PERRL/EOMI Ears, Nose, Throat Exam: hearing grossly normal Neck Exam: normal inspection, full range of motion Respiratory Exam: rhonchi, wheezing Cardiovascular/Chest Exam: normal heart sounds, regular rate/rhythm Abdominal/Gastrointestinal Exam: soft, normal bowel sounds, No tenderness Extremity Exam: inflammation (Bilateral lower legs erythema with a skin break on the right side.), swelling Neurologic Exam: alert, 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, cooperative, tree thinner II-XII nml as tested, No normal mood/affect, No sensation nml, No motor deficits SpO2 Interpretation: O2 applied SpO2: 96 O2 Delivery: Nasal Cannula (I believe) - Course EKG Interpreted by Me: RATE (81), Sinus Rhythm, NORMAL AXIS, NORMAL INTERVALS, Right Bundle Branch Block, Non-specific ST Changes Ordered Tests: Active Orders 24 hr Category Date Time Status Vac Press Operator STAT Care 10/06/24 02:18 Active EKG-ER Only STAT Care 10/06/24 02:18 Active IV Insertion STAT Care 10/06/24 02:18 Active CHEST 1 VIEW (PORTABLE) Stat Exams 10/06/24 03:31 Taken BLOOD CULTURE Stat Lab 10/06/24 02:35 Received CBC W DIFF Stat Lab 10/06/24 02:35 Completed CMP Stat Lab 10/06/24 02:35 Completed Lactic Acid Stat Lab 10/06/24 02:18 Completed MAG [MAGNESIUM] Stat Lab 10/06/24 02:35 Completed NT PRO BNPII Stat Lab 10/06/24 02:35 Completed POCT GLUCOSE Stat Lab 10/06/24 02:19 Completed PROCALCITONIN Stat Lab 10/06/24 02:35 Completed TROPONIN Q4H Lab 10/06/24 02:35 Completed TROPONIN Q4H Lab 10/06/24 06:30 Ordered TROPONIN Q4H Lab 10/06/24 10:30 Ordered Medication Summary Discontinued Medications Generic Name Dose Route Start Last Admin Trade Name Freq PRN Reason Stop Dose Admin Albuterol/Ipratropium 3 ml 10/06/24 02:18 10/06/24 02:56 Ipratropium/Albuterol Sulfate 3 Ml Ampul.Neb IH 10/06/24 02:19 Not Given STAT ONE Levofloxacin/Dextrose 750 mg in 150 mls @ 100 mls/hr 10/06/24 03:54 10/06/24 04:38 Levofloxacin 750mg/150ml D5w IV 10/06/24 05:23 100 mls/hr STAT STA 100 mls/hr Administration Clindamycin HCl/Dextrose 600 mg in 50 mls @ 100 mls/hr 10/06/24 04:07 10/06/24 05:13 Clindamycin-D5w 600 Mg/50 Ml IV 10/06/24 04:36 Infused STAT STA Infusion Levofloxacin/Dextrose Confirm 10/06/24 04:23 Levofloxacin 750mg/150ml D5w Administered 10/06/24 04:24 Dose 750 mg in 150 mls @ ud IV .STK-MED ONE Clindamycin HCl/Dextrose Confirm 10/06/24 04:24 Clindamycin-D5w 600 Mg/50 Ml Administered 10/06/24 04:25 Dose 600 mg in 50 mls @ ud IV .STK-MED ONE Lab/Rad Data: Laboratory Result Diagrams 10/06/24 02:35 10/06/24 02:35 Laboratory Results 10/06/24 10/06/24 10/06/24 Range/Units 02:35 02:35 02:35 WBC (3.98-10.04) x10^3/uL RBC (3.93-5.22) x10^6/uL Hgb (11.2-15.7) g/dL Hct (34.1-44.9) % MCV (79.4-94.8) fL MCH (25.6-32.2) pg MCHC (32.2-35.5) g/dL RDW (11.7-14.4) % Plt Count (182-369) x10^3/uL MPV (9.4-12.3) fL Gran % (34.0-71.1) % Immature Gran % (Auto) (0.001-0.429) % Nucleat RBC Rel Count (0.00-0.2) % Eos # (Auto) (0.04-0.36) x10^3/uL Immature Gran # (Auto) (0.001-0.031) x10^3u/L Absolute Lymphs (auto) (1.18-3.74) x10^3/uL Absolute Monos (auto) (0.24-0.86) x10^3/uL Absolute Nucleated RBC (0.00-0.012) x10^3u/L Lymphocytes % (19.3-51.7) % Monocytes % (4.7-12.5) % Eosinophils % (0.7-5.8) % Basophils % (0.1-1.2) % Absolute Granulocytes (1.56-6.13) x10^3/uL Basophils # (0.01-0.08) x10^3/uL Sodium (135-145) mmol/L Potassium (3.5-5.1) mmol/L Chloride (98-107) mmol/L Carbon Dioxide (22-30) mmol/L Anion Gap (5-15) MEQ/L BUN (7-17) mg/dL Creatinine (0.52-1.04) mg/dL Estimated GFR ML/MIN Glucose (74-106) mg/dL POC Glucometer (74 to 106) mg/dL Lactic Acid (0.4-2.0) Calcium (8.4-10.2) mg/dL Magnesium (1.6-2.3) mg/dL Total Bilirubin (0.2-1.3) mg/dL AST (14-36) U/L ALT (0-35) U/L Alkaline Phosphatase (38-126) U/L Troponin I < 0.012 (0.000-0.033) ng/mL NT-Pro-B Natriuret Pep 198 (<300) pg/mL Serum Total Protein (6.3-8.2) g/dL Albumin (3.5-5.0) g/dL Procalcitonin 0.074 (0.030-0.080) ng/mL Influenza Type A Ag NEGATIVE (NEGATIVE) Influenza Type B Ag NEGATIVE (NEGATIVE) RSV (PCR) NEGATIVE (NEGATIVE) SARS-CoV-2 (PCR) NEGATIVE (NEGATIVE) Slides for Path Review 10/06/24 10/06/24 10/06/24 Range/Units 02:35 02:35 02:19 WBC 9.2 (3.98-10.04) x10^3/uL RBC 3.45 L (3.93-5.22) x10^6/uL Hgb 9.2 L (11.2-15.7) g/dL Hct 32.6 L (34.1-44.9) % MCV 94.5 (79.4-94.8) fL MCH 26.7 (25.6-32.2) pg MCHC 28.2 L (32.2-35.5) g/dL RDW 16.7 H (11.7-14.4) % Plt Count 297 (182-369) x10^3/uL MPV 9.6 (9.4-12.3) fL Gran % 64.4 (34.0-71.1) % Immature Gran % (Auto) 1.2 H (0.001-0.429) % Nucleat RBC Rel Count 0.0 (0.00-0.2) % Eos # (Auto) 0.20 (0.04-0.36) x10^3/uL Immature Gran # (Auto) 0.11 H (0.001-0.031) x10^3u/L Absolute Lymphs (auto) 2.28 (1.18-3.74) x10^3/uL Absolute Monos (auto) 0.64 (0.24-0.86) x10^3/uL Absolute Nucleated RBC 0.00 (0.00-0.012) x10^3u/L Lymphocytes % 24.9 (19.3-51.7) % Monocytes % 7.0 (4.7-12.5) % Eosinophils % 2.2 (0.7-5.8) % Basophils % 0.3 (0.1-1.2) % Absolute Granulocytes 5.89 (1.56-6.13) x10^3/uL Basophils # 0.03 (0.01-0.08) x10^3/uL Sodium 140 (135-145) mmol/L Potassium 4.6 (3.5-5.1) mmol/L Chloride 97 L (98-107) mmol/L Carbon Dioxide 36 H (22-30) mmol/L Anion Gap 11.6 (5-15) MEQ/L BUN 29 H (7-17) mg/dL Creatinine 0.87 (0.52-1.04) mg/dL Estimated GFR 72.5 ML/MIN Glucose 129 H (74-106) mg/dL POC Glucometer 127 H (74 to 106) mg/dL Lactic Acid (0.4-2.0) Calcium 8.6 (8.4-10.2) mg/dL Magnesium 2.2 (1.6-2.3) mg/dL Total Bilirubin 0.30 (0.2-1.3) mg/dL AST 25 (14-36) U/L ALT 28 (0-35) U/L Alkaline Phosphatase 72 (38-126) U/L Troponin I (0.000-0.033) ng/mL NT-Pro-B Natriuret Pep (<300) pg/mL Serum Total Protein 7.5 (6.3-8.2) g/dL Albumin 3.7 (3.5-5.0) g/dL Procalcitonin (0.030-0.080) ng/mL Influenza Type A Ag (NEGATIVE) Influenza Type B Ag (NEGATIVE) RSV (PCR) (NEGATIVE) SARS-CoV-2 (PCR) (NEGATIVE) Slides for Path Review YES 10/06/24 Range/Units 02:18 WBC (3.98-10.04) x10^3/uL RBC (3.93-5.22) x10^6/uL Hgb (11.2-15.7) g/dL Hct (34.1-44.9) % MCV (79.4-94.8) fL MCH (25.6-32.2) pg MCHC (32.2-35.5) g/dL RDW (11.7-14.4) % Plt Count (182-369) x10^3/uL MPV (9.4-12.3) fL Gran % (34.0-71.1) % Immature Gran % (Auto) (0.001-0.429) % Nucleat RBC Rel Count (0.00-0.2) % Eos # (Auto) (0.04-0.36) x10^3/uL Immature Gran # (Auto) (0.001-0.031) x10^3u/L Absolute Lymphs (auto) (1.18-3.74) x10^3/uL Absolute Monos (auto) (0.24-0.86) x10^3/uL Absolute Nucleated RBC (0.00-0.012) x10^3u/L Lymphocytes % (19.3-51.7) % Monocytes % (4.7-12.5) % Eosinophils % (0.7-5.8) % Basophils % (0.1-1.2) % Absolute Granulocytes (1.56-6.13) x10^3/uL Basophils # (0.01-0.08) x10^3/uL Sodium (135-145) mmol/L Potassium (3.5-5.1) mmol/L Chloride (98-107) mmol/L Carbon Dioxide (22-30) mmol/L Anion Gap (5-15) MEQ/L BUN (7-17) mg/dL Creatinine (0.52-1.04) mg/dL Estimated GFR ML/MIN Glucose (74-106) mg/dL POC Glucometer (74 to 106) mg/dL Lactic Acid 0.9 (0.4-2.0) Calcium (8.4-10.2) mg/dL Magnesium (1.6-2.3) mg/dL Total Bilirubin (0.2-1.3) mg/dL AST (14-36) U/L ALT (0-35) U/L Alkaline Phosphatase (38-126) U/L Troponin I (0.000-0.033) ng/mL NT-Pro-B Natriuret Pep (<300) pg/mL Serum Total Protein (6.3-8.2) g/dL Albumin (3.5-5.0) g/dL Procalcitonin (0.030-0.080) ng/mL Influenza Type A Ag (NEGATIVE) Influenza Type B Ag (NEGATIVE) RSV (PCR) (NEGATIVE) SARS-CoV-2 (PCR) (NEGATIVE) Slides for Path Review - Progress Progress: improved, re-examined Air Movement: fair Progress Note: 10/06/24 06:14 68 years old is evaluated in the ER for increasing shortness of breath with some confusion. Patient is awake and fairly oriented on presentation, receiving neb treatment and feeling better. She is on 5 L oxygen. Chest x-ray showed left-sided effusion and some airspace disease bilaterally without consolidation reviewed by me, official report is pending. Patient also has lower extremity cellulitis with a skin break. She is given a dose of Levaquin and clindamycin for COPD exacerbation and cellulitis. Workup showed normal white count, chemistries fairly unremarkable, troponins are negative. Negative COVID flu and RSV. Discussed with Dr. Bravo and patient is being admitted. Blood Culture(s) Obtained: Yes Antibiotics given: Yes Discussed with : Other Will see patient in: hospital (observation) (Dr. 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 Bravo) Reviewed:: Test results Agreed on:: Treatment plan, place in obs Will see patient: in hospital - Diagnostic Testing Diagnostic test were ordered, analyzed, and reviewed by me: Yes Radiological Interpretation: Interpreted by me, Reviewed by me - Risk of complications The pt has a mod risk of morbidity or mortality based on: Need for prescription drug management The pt has a high risk of morbidity or mortality based on: Decision regarding hospitilization or escalation of hosp level of care - Departure Departure Disposition: Observation Clinical Impression: COPD with exacerbation, Cellulitis of both lower extremities Condition: Stable Critical Care Time: No Referrals: DEB ESQUIVEL MD [Primary Care Provider] - Follow up/PCP as directed Instructions: Chronic Obstructive Pulmonary Disease
[2024-10-06] MEDS ORDERED: LEVOFLOXACIN 750MG/150ML D5W 750 MG/150 ML BAG IV ONE (04:23)
[2024-10-06] MEDS ORDERED: CLINDAMYCIN-D5W 600 MG/50 ML*** 600 MG/50 ML BAG IV ONE (04:24)
[2024-10-06] MEDS: CLINDAMYCIN-D5W 600 MG/50 ML*** 600 MG/50 ML BAG IV STA (04:37)
[2024-10-06] MEDS: LEVOFLOXACIN 750MG/150ML D5W 750 MG/150 ML BAG IV STA (04:38)
[2024-10-06 04:55] LABS: Slide Review 1 YES
[2024-10-06] MEDS ORDERED: Zofran 4 MG/2 ML VIAL IV PRN (07:24)
[2024-10-06] MEDS ORDERED: TYLENOL 325 MG PO PRN ×2 (07:24→07:35)
--- NOTE | 2024-10-06 07:39 | PCM.HP ---
History of Present Illness - Chief Complaint Chief Complaint: pneumonia, celluliitis Date: 10/06/24 History of Present Illness: is a 68 year old female with PMHX of chronic respiratory failure secondary to COPD on 5 L oxygen, congestive heart failure, diabetes mellitus, fibromyalgia, chronic lower extremity swelling/venous stasis and ulcers, chronic morbid obesity,and resident of retirement. She was sent in to ER for altered mental status and difficulty breathing. Patient on presentation is awake alert and fairly oriented and answering most of the questions appropriately. She received a breathing treatment and on reevaluation her oxygen is in mid 90s. Not a good historian and history is limited. She received Levaquin and clindamycin, as well as duoneb in ER will continue and add steroids. She has BLLE cellulitis and Pneumonia. Podiatry consulted. She denies CP, Abd. pain, N/V/D. - Review of Systems Constitutional: Weakness, No Fever, No Chills Eyes: No Symptoms Ears, Nose, & Throat: No Symptoms, Other (redness of skin on chin) Respiratory: Short Of Breath, Wheezing, No Cough Cardiac: No Chest Pain, No Edema, No Syncope Abdominal/Gastrointestinal: No Abdominal Pain, No Nausea, No Vomiting, No Diarrhea Genitourinary Symptoms: No Dysuria Musculoskeletal: No Back Pain, No Neck Pain Skin: Cellulitis (BLLE), No Rash Neurological: No Dizziness, No Focal Weakness, No Sensory Changes Psychological: No Symptoms Endocrine: No Symptoms Hematologic/Lymphatic: No Symptoms Immunological/Allergic: No Symptoms Medications & Allergies Home Medications: Home Medication List Ropinirole HCl 3 mg PO QID 01/23/23 [History Confirmed 10/06/24] Atorvastatin Calcium [Lipitor] 20 mg PO HS 11/13/23 [History Confirmed 10/06/24] Bumetanide 2 mg PO DAILY 11/13/23 [History Confirmed 10/06/24] Glimepiride 1 mg PO DAILY 11/13/23 [History Confirmed 10/06/24] Losartan Potassium [Cozaar] 25 mg PO DAILY 02/09/24 [History Confirmed 10/06/24] Metformin HCl [Metformin HCl ER] 500 mg PO DAILY 02/09/24 [History Confirmed 10/06/24] Nystatin Powder 15 gm [Nystop Powder 15 gm] 1 gm TP BID 10 Days #15 misc 02/11/24 [Rx Confirmed 10/06/24] Acetaminophen 325 mg [Tylenol 325 mg] 650 mg PO Q6H PRN 10/06/24 [History Confirmed 10/06/24] Albuterol 2.5 mg/3 ml Neb [Proventil 2.5 mg/3 ml Neb] 1 vial IH Q4H PRN 10/06/24 [History Confirmed 10/06/24] Cholecalciferol (Vitamin D3) [Vitamin D3] 10 mcg PO DAILY 10/06/24 [History Confirmed 10/06/24] Cranberry Fruit Concentrate [Cranberry] 300 mg PO DAILY 10/06/24 [History Confirmed 10/06/24] Dextran 70/Hypromellose [Artificial Tears] 1 each OP TID 10/06/24 [History Confirmed 10/06/24] Fluticasone/Umeclidin/Vilanter [Trelegy Ellipta 100-62.5-25] 1 puff IH DAILY 10/06/24 [History Confirmed 10/06/24] Insulin Glargine,Hum.rec.anlog [Lantus] 40 unit SQ HS 10/06/24 [History Confirmed 10/06/24] Insulin Lispro [Humalog Kwikpen] See Rx Instructions .ROUTE .COMPLEX 10/06/24 [History Confirmed 10/06/24] Loratadine 10 mg [Claritin 10 mg] 10 mg PO DAILY 10/06/24 [History Confirmed 10/06/24] Metolazone 2.5 mg [Zaroxolyn 2.5 MG] 1 tab PO DAILY 10/06/24 [History Confirmed 10/06/24] Mineral Oil/Pet Hy-Phl 50 gm [Aquaphor Ointment 50 gm] 1 gm EXT BID 10/06/24 [History Confirmed 10/06/24] Nitroglycerin 0.4 mg Tablet [Nitrostat 0.4 MG Tablet] 0.4 mg SL PRN 10/06/24 [History] Allergies/Adverse Reactions: Allergies Allergy/AdvReac Type Severity Reaction Status Date / Time codeine Allergy Intermediate rash, Verified 10/06/24 08:09 itching cefaclor [From Ceclor] Allergy Mild Rash Verified 10/06/24 08:09 Penicillins Allergy Mild Swelling Verified 10/06/24 08:09 bacitracin AdvReac Mild Itching Verified 10/06/24 08:09 [From Neosporin ([id number])] bacitracin zinc AdvReac Mild Itching Verified 10/06/24 08:09 [From Neosporin ([id number])] levofloxacin [From Levaquin] AdvReac Mild itch Verified 10/06/24 08:09 neomycin sulfate AdvReac Mild itch Verified 10/06/24 08:09 [From Neosporin ([id number])] polymyxin B AdvReac Mild Itching Verified 10/06/24 08:09 [From Neosporin ([id number])] - Past Medical History Past Medical History: Yes Neurological History: No Pertinent History ENT History: No Pertinent History Cardiac History: Congestive Heart Failure, Hypertension, Peripheral Vascular Disease Respiratory History: COPD, Emphysema Endocrine Medical History: Diabetes Type II Musculoskelatal History: Fibromyalgia GI Medical History: No Pertinent History History: Other Pyscho-Social History: No Pertinent History Reproductive Disorders: No Pertinent History Comment: Stress Incontinence - Past Surgical History Past Surgical History: Yes Neuro Surgical History: No Pertinent History Cardiac History: No Pertinent History Respiratory Surgery: No Pertinent History GI Surgical History: Cholecystectomy Genitourinary Surgical Hx: No Pertinent History Musculskeletal Surgical Hx: No Pertinent History Female Surgical History: Tubal Ligation Significant Family History: no pertinent family hx - Social History Smoking Status: Current every day smoker How long have you smoked: 50 years Exposure to second hand smoke: Yes Alcohol: None Drug Use: none - Social Determinants of Health Will the patient participate in the screening: Declined to provide Do you worry about a steady place to live?: No In the past 12 months,have you had to go without utilities?: No Have you or anyone in your house had to go without enough: No Transportation Issues: No Has anyone in your support network made you feel unsafe?: No Does the patient want assistance with any of the above?: No Comment: pt drowsy and not answering- info taken from ems - Physical Exam Vital Signs: Vital Signs - 24 hr Pulse Resp BP BP Pulse Ox 10/06/24 07:00 88 22 120/76 94 L 10/06/24 06:32 87 17 95 10/06/24 06:17 96 10/06/24 06:03 81 26 H 110/72 95 10/06/24 06:01 86 14 90/45 96 10/06/24 05:30 83 19 118/71 89 L 10/06/24 05:18 83 21 134/53 93 L 10/06/24 05:17 85 13 134/53 93 L 10/06/24 05:10 88 17 92 L 10/06/24 05:01 86 20 92 L 10/06/24 04:41 82 28 H 99/41 92 L 10/06/24 04:40 88 20 94 L 10/06/24 04:39 84 24 10/06/24 04:01 83 22 90/65 96 10/06/24 03:31 77 28 H 151/53 96 10/06/24 03:00 76 27 H 96/39 97 10/06/24 02:56 75 30 H 97 10/06/24 02:09 79 24 122/68 100 General Appearance: mild distress, alert, obese Neurologic Exam: alert, 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, cooperative, normal mood/affect, nml cerebellar function, nml station & gait, sensation nml, motor weakness, No motor deficits Eye Exam: PERRL/EOMI, eyes nml inspection Ears, Nose, Throat Exam: normal ENT inspection, TMs normal, pharynx normal, moist mucous membranes, other (dry skin/redness- chin) Neck Exam: normal inspection, non-tender, supple, full range of motion Respiratory Exam: crackles/rales, wheezing, No respiratory distress Cardiovascular Exam: regular rate/rhythm, normal heart sounds, normal peripheral pulses Gastrointestinal/Abdomen Exam: soft, normal bowel sounds, No tenderness, No mass Back Exam: normal inspection, normal range of motion, No CVA tenderness, No vertebral tenderness Extremity Exam: normal inspection, normal range of motion, pelvis stable, other (cellulitis BLLE) Skin Exam: normal color, warm, dry, No rash Lymphatic Exam: No adenopathy Results - Labs Lab/Micro Results: Lab Results-Last 24 Hours 10/06/24 10/06/24 10/06/24 Range/Units 02:18 02:19 02:35 WBC 9.2 (3.98-10.04) x10^3/uL RBC 3.45 L (3.93-5.22) x10^6/uL Hgb 9.2 L (11.2-15.7) g/dL Hct 32.6 L (34.1-44.9) % MCV 94.5 (79.4-94.8) fL MCH 26.7 (25.6-32.2) pg MCHC 28.2 L (32.2-35.5) g/dL RDW 16.7 H (11.7-14.4) % Plt Count 297 (182-369) x10^3/uL MPV 9.6 (9.4-12.3) fL Gran % 64.4 (34.0-71.1) % Immature Gran % (Auto) 1.2 H (0.001-0.429) % Nucleat RBC Rel Count 0.0 (0.00-0.2) % Eos # (Auto) 0.20 (0.04-0.36) x10^3/uL Immature Gran # (Auto) 0.11 H (0.001-0.031) x10^3u/L Absolute Lymphs (auto) 2.28 (1.18-3.74) x10^3/uL Absolute Monos (auto) 0.64 (0.24-0.86) x10^3/uL Absolute Nucleated RBC 0.00 (0.00-0.012) x10^3u/L Lymphocytes % 24.9 (19.3-51.7) % Monocytes % 7.0 (4.7-12.5) % Eosinophils % 2.2 (0.7-5.8) % Basophils % 0.3 (0.1-1.2) % Absolute Granulocytes 5.89 (1.56-6.13) x10^3/uL Basophils # 0.03 (0.01-0.08) x10^3/uL Sodium (135-145) mmol/L Potassium (3.5-5.1) mmol/L Chloride (98-107) mmol/L Carbon Dioxide (22-30) mmol/L Anion Gap (5-15) MEQ/L BUN (7-17) mg/dL Creatinine (0.52-1.04) mg/dL Estimated GFR ML/MIN Glucose (74-106) mg/dL POC Glucometer 127 H (74 to 106) mg/dL Lactic Acid 0.9 (0.4-2.0) Calcium (8.4-10.2) mg/dL Magnesium (1.6-2.3) mg/dL Total Bilirubin (0.2-1.3) mg/dL AST (14-36) U/L ALT (0-35) U/L Alkaline Phosphatase (38-126) U/L Troponin I (0.000-0.033) ng/mL NT-Pro-B Natriuret Pep (<300) pg/mL Serum Total Protein (6.3-8.2) g/dL Albumin (3.5-5.0) g/dL Procalcitonin (0.030-0.080) ng/mL Influenza Type A Ag (NEGATIVE) Influenza Type B Ag (NEGATIVE) RSV (PCR) (NEGATIVE) SARS-CoV-2 (PCR) (NEGATIVE) Slides for Path Review YES 10/06/24 10/06/24 10/06/24 Range/Units 02:35 02:35 02:35 WBC (3.98-10.04) x10^3/uL RBC (3.93-5.22) x10^6/uL Hgb (11.2-15.7) g/dL Hct (34.1-44.9) % MCV (79.4-94.8) fL MCH (25.6-32.2) pg MCHC (32.2-35.5) g/dL RDW (11.7-14.4) % Plt Count (182-369) x10^3/uL MPV (9.4-12.3) fL Gran % (34.0-71.1) % Immature Gran % (Auto) (0.001-0.429) % Nucleat RBC Rel Count (0.00-0.2) % Eos # (Auto) (0.04-0.36) x10^3/uL Immature Gran # (Auto) (0.001-0.031) x10^3u/L Absolute Lymphs (auto) (1.18-3.74) x10^3/uL Absolute Monos (auto) (0.24-0.86) x10^3/uL Absolute Nucleated RBC (0.00-0.012) x10^3u/L Lymphocytes % (19.3-51.7) % Monocytes % (4.7-12.5) % Eosinophils % (0.7-5.8) % Basophils % (0.1-1.2) % Absolute Granulocytes (1.56-6.13) x10^3/uL Basophils # (0.01-0.08) x10^3/uL Sodium 140 (135-145) mmol/L Potassium 4.6 (3.5-5.1) mmol/L Chloride 97 L (98-107) mmol/L Carbon Dioxide 36 H (22-30) mmol/L Anion Gap 11.6 (5-15) MEQ/L BUN 29 H (7-17) mg/dL Creatinine 0.87 (0.52-1.04) mg/dL Estimated GFR 72.5 ML/MIN Glucose 129 H (74-106) mg/dL POC Glucometer (74 to 106) mg/dL Lactic Acid (0.4-2.0) Calcium 8.6 (8.4-10.2) mg/dL Magnesium 2.2 (1.6-2.3) mg/dL Total Bilirubin 0.30 (0.2-1.3) mg/dL AST 25 (14-36) U/L ALT 28 (0-35) U/L Alkaline Phosphatase 72 (38-126) U/L Troponin I < 0.012 (0.000-0.033) ng/mL NT-Pro-B Natriuret Pep 198 (<300) pg/mL Serum Total Protein 7.5 (6.3-8.2) g/dL Albumin 3.7 (3.5-5.0) g/dL Procalcitonin 0.074 (0.030-0.080) ng/mL Influenza Type A Ag (NEGATIVE) Influenza Type B Ag (NEGATIVE) RSV (PCR) (NEGATIVE) SARS-CoV-2 (PCR) (NEGATIVE) Slides for Path Review 10/06/24 10/06/24 Range/Units 02:35 07:24 WBC (3.98-10.04) x10^3/uL RBC (3.93-5.22) x10^6/uL Hgb (11.2-15.7) g/dL Hct (34.1-44.9) % MCV (79.4-94.8) fL MCH (25.6-32.2) pg MCHC (32.2-35.5) g/dL RDW (11.7-14.4) % Plt Count (182-369) x10^3/uL MPV (9.4-12.3) fL Gran % (34.0-71.1) % Immature Gran % (Auto) (0.001-0.429) % Nucleat RBC Rel Count (0.00-0.2) % Eos # (Auto) (0.04-0.36) x10^3/uL Immature Gran # (Auto) (0.001-0.031) x10^3u/L Absolute Lymphs (auto) (1.18-3.74) x10^3/uL Absolute Monos (auto) (0.24-0.86) x10^3/uL Absolute Nucleated RBC (0.00-0.012) x10^3u/L Lymphocytes % (19.3-51.7) % Monocytes % (4.7-12.5) % Eosinophils % (0.7-5.8) % Basophils % (0.1-1.2) % Absolute Granulocytes (1.56-6.13) x10^3/uL Basophils # (0.01-0.08) x10^3/uL Sodium (135-145) mmol/L Potassium (3.5-5.1) mmol/L Chloride (98-107) mmol/L Carbon Dioxide (22-30) mmol/L Anion Gap (5-15) MEQ/L BUN (7-17) mg/dL Creatinine (0.52-1.04) mg/dL Estimated GFR ML/MIN Glucose (74-106) mg/dL POC Glucometer 119 H (74 to 106) mg/dL Lactic Acid (0.4-2.0) Calcium (8.4-10.2) mg/dL Magnesium (1.6-2.3) mg/dL Total Bilirubin (0.2-1.3) mg/dL AST (14-36) U/L ALT (0-35) U/L Alkaline Phosphatase (38-126) U/L Troponin I (0.000-0.033) ng/mL NT-Pro-B Natriuret Pep (<300) pg/mL Serum Total Protein (6.3-8.2) g/dL Albumin (3.5-5.0) g/dL Procalcitonin (0.030-0.080) ng/mL Influenza Type A Ag NEGATIVE (NEGATIVE) Influenza Type B Ag NEGATIVE (NEGATIVE) RSV (PCR) NEGATIVE (NEGATIVE) SARS-CoV-2 (PCR) NEGATIVE (NEGATIVE) Slides for Path Review - Radiology Impressions Radiology Exams & Impressions: Radiology Procedures Category Date Time Status CHEST 1 VIEW (PORTABLE) Stat Exams 10/06/24 03:31 Taken - Other Procedures and Tests Respiratory Therapy 10/06/24 07:24 Oxygen Nasal Cannula 2 lpm Assessment/Plan (1) COPD with exacerbation Current Visit: Yes Status: Acute Assessment & Plan: - IV antibiotics, Duonebs, Sterods, advair - on BL 5lNC O2 - CBC, CMP reviewed - CXR: Portable chest demonstrates new left mid to lower lung infiltrate/atelectasis/effusion and new right base infiltrate/atelectasis. Heart not enlarged. Bony thorax intact again with osteopenia and degenerative changes. - BCx2 pending Code(s): J44.1 - CHRONIC OBSTRUCTIVE PULMONARY DISEASE W (ACUTE) EXACERBATION (2) Pneumonia Current Visit: No Status: Acute Qualifiers: Assessment & Plan: - see above plan Code(s): J18.9 - PNEUMONIA, UNSPECIFIED ORGANISM (3) Cellulitis of both lower extremities Current Visit: Yes Status: Acute Assessment & Plan: - podiatry consult - IV antibiotics - BC x2 - obtain wound culture if drainage Code(s): L03.115 - CELLULITIS OF RIGHT LOWER LIMB; L03.116 - CELLULITIS OF LEFT LOWER LIMB (4) CHF (congestive heart failure) Current Visit: No Status: Chronic Assessment & Plan: - Not in acute exacerbation - BNP 198 - Continue home meds Code(s): I50.9 - HEART FAILURE, UNSPECIFIED (5) PVD (peripheral vascular disease) Current Visit: No Status: Chronic Assessment & Plan: - adds to complexity Code(s): I73.9 - PERIPHERAL VASCULAR DISEASE, UNSPECIFIED (6) Unable to care for self Current Visit: No Status: Chronic Assessment & Plan: - lives at retirement Code(s): Z78.9 - OTHER SPECIFIED HEALTH STATUS (7) HTN (hypertension) Current Visit: No Status: Chronic Qualifiers: Assessment & Plan: - Continue home meds - BP stable- trend Code(s): I10 - ESSENTIAL (PRIMARY) HYPERTENSION (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
[2024-10-06] MEDS ORDERED: MEDICATION INTERVENTION MC SCH ×2 (08:15→12:15)
[2024-10-06] MEDS: DUONEB 0.5-3 MG/3 ml Neb IH SCH (08:20)
[2024-10-06] MEDS: Advair Hfa 115/21 Common canister IH SCH (08:20)
--- NOTE | 2024-10-06 09:47 | XRAY ---
Indication: Short of breath. Comparison: February 08, 2024 Portable chest demonstrates new left mid to lower lung infiltrate/atelectasis/effusion and new right base infiltrate/atelectasis. Heart not enlarged. Bony thorax intact again with osteopenia and degenerative changes.
[2024-10-06] MEDS ORDERED: NON-FORMULARY ITEM (Fluticasone/Umeclidin/Vilanter [Trelegy Ellipta 100-62.5-25] 1 EACH Bl IH SCH (10:00)
[2024-10-06] MEDS ORDERED: DUONEB 0.5-3 MG/3 ml Neb IH ONE (11:18)
[2024-10-06] MEDS ORDERED: HUMALOG SQ PRN (11:55)
[2024-10-06] MEDS: HUMALOG SQ PRN (12:32)
[2024-10-06] MEDS: BUMEX 1 MG PO SCH (12:32)
[2024-10-06] MEDS: REQUIP 2MG TAB PO SCH (12:32)
[2024-10-06] MEDS: TYLENOL 325 MG PO PRN (12:33)
[2024-10-06] MEDS: Amaryl 2 MG PO SCH (12:34)
[2024-10-06] MEDS: Cozaar 50 MG PO SCH (12:34)
[2024-10-06] MEDS: Glucophage XR 500 MG PO SCH (12:34)
[2024-10-06] MEDS: CLARITIN 10 MG PO SCH (12:34)
[2024-10-06] MEDS: solu-MEDROL 40 MG, Sterile H2O 10 ml 1 ML IV SCH (12:35)
[2024-10-06] MEDS: NYSTOP POWDER 15 GM TP SCH (12:35)
[2024-10-06] MEDS: VITAMIN D PO SCH (12:36)
[2024-10-06] MEDS: AQUAPHOR OINTMENT 50 GM TP SCH (12:36)
[2024-10-06] MEDS: CLINDAMYCIN-D5W 600 MG/50 ML*** 600 MG/50 ML BAG IV SCH (15:07)
[2024-10-06] MEDS: ENOXAPARIN SODIUM SQ SCH (15:08)
[2024-10-06] MEDS: Artificial Tears 15 ML OP SCH (15:08)
[2024-10-06] MEDS: Protonix 20MG Tablet PO SCH (15:08)
[2024-10-06] MEDS ORDERED: AQUAPHOR OINTMENT 50 GM EXT SCH (22:00)
[2024-10-06] MEDS: ZOCOR 20MG PO SCH (22:27)
[2024-10-06] MEDS: Lantus Insulin SQ SCH (22:28)
[2024-10-07 06:54] LABS: Hemoglobin 8.9 g/dL (11.2-15.7); Mean Cell Volume 89.6 fL (79.4-94.8); Mean Corpuscular Hemoglobin 26.6 pg (25.6-32.2); Mean Corpuscular Hgb Concent. 29.7 g/dL (32.2-35.5); Mean Platelet Volume 9.5 fL (9.4-12.3); Platelet Count 313 x10^3/uL (182-369); Red Blood Count 3.35 x10^6/uL (3.93-5.22); Red Cell Distribution Width 16.3 % (11.7-14.4); White Blood Count 12.3 x10^3/uL (3.98-10.04)
[2024-10-07 07:07] LABS: ALBUMIN 3.5 g/dL (3.5-5.0); ANION GAP 7.9 MEQ/L (5-15); BILIRUBIN,TOTAL 0.3 mg/dL (0.2-1.3); Calcium 8.8 mg/dL (8.4-10.2); Creatinine 1 0.92 mg/dL (0.52-1.04); EST GLOMERULAR FILTRATION RATE 67.8 ML/MIN; Potassium 4.8 mmol/L (3.5-5.1); Total Protein 7.1 g/dL (6.3-8.2)
[2024-10-07] MEDS: HUMALOG SQ SCH (08:01)
[2024-10-07] MEDS: BENADRYL 25 MG CAPSULE PO SCH (08:02)
[2024-10-07 08:30] LABS: Iron 72 ug/dL (37-170); Iron Saturation 29 % (20-39); TIBC 252 ug/dL (265-462)
[2024-10-07 09:28] LABS: Folate (Folic Acid) 11.1 ng/mL (2.76 - >20)
[2024-10-07] MEDS: Lantus Insulin SQ SCH (09:30)
[2024-10-07] MEDS: LEVOFLOXACIN 750MG/150ML D5W 750 MG/150 ML BAG IV SCH (09:38)
[2024-10-07] MEDS ORDERED: [UNRECOGNIZED DRUG - OTHER] PO SCH (10:00)
--- NOTE | 2024-10-07 13:44 | PCM.NOTE ---
Date and Time: 10/07/24 1336 Subjective Assessment: 10/06/24 is a 68 year old female with PMHX of chronic respiratory failure secondary to COPD on 5 L oxygen, congestive heart failure, diabetes mellitus, fibromyalgia, chronic lower extremity swelling/venous stasis and ulcers, chronic morbid obesity,and resident of [facility]. She was sent in to ER for altered mental status and difficulty breathing. Patient on presentation is awake alert and fairly oriented and answering most of the questions appropriately. She received a breathing treatment and on reevaluation her oxygen is in mid 90s. Not a good historian and history is limited. She received Levaquin and clindamycin, as well as duoneb in ER will continue and add steroids. She has BLLE cellulitis and Pneumonia. Podiatry consulted. She denies CP, Abd. pain, N/V/D. 10/07/24 Pt resting in bed. Lung sounds have improved and she reports feeling better. For some reason podiatry consult cancelled yesterday. Podiatry reconsulted today. Venous duplex ordered stat by podiatry and pt refused stating it was too painful. Per ECF she recently had this done and they will send over records. Wo und cultures of BLLE completed by nursing today as they have started to drain. Lantus changed to BID and Humalog added with meals. Continue IV antibiotics, steroids, duonebs, Advair. She denies any further concerns at this time. - Review of Systems Constitutional: Weakness, No Fever, No Chills Eyes: No Symptoms Ears, Nose, & Throat: No Symptoms Respiratory: Short Of Breath, Wheezing, No Cough Cardiac: No Chest Pain, No Edema, No Syncope Abdominal/Gastrointestinal: No Abdominal Pain, No Nausea, No Vomiting, No Diarrhea Genitourinary Symptoms: No Dysuria Musculoskeletal: No Back Pain, No Neck Pain Skin: Cellulitis, Skin Lesions (BLLE), No Rash Neurological: No Dizziness, No Focal Weakness, No Sensory Changes Psychological: No Symptoms Endocrine: No Symptoms Hematologic/Lymphatic: No Symptoms Immunological/Allergic: No Symptoms Objective Exam General Appearance: no apparent distress, alert, obese Neurologic Exam: alert, 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, cooperative, normal mood/affect, nml cerebellar function, sensation nml, motor weakness, No motor deficits Skin Exam: normal color, warm, dry, other (Lesions/ cellulitis BLLE) Wound Assessment: Skin/Wound Assessment Wound/Incision Assessment Start: 10/06/24 19:39 Text: Status: Active Freq: Q12H Protocol: Document 10/07/24 08:00 VS (Rec: 10/07/24 08:30 VS [id number]) Wound/Incision Assessment bilateral lower legs Wound Assessment Shift Assessment Wound Type cellulitis Wound Stage Non Pressure Wound Drainage Amount Minimal Wound Bed Greatest Portion Red (Granulation) Surrounding Tissue Weeping Comment open to air, barrier cream applied, Podiatry consult placed per [employer] Eye Exam: PERRL, EOMI, eyes nml inspection Ears, Nose, Throat Exam: normal ENT inspection, pharynx normal, moist mucous membranes Neck Exam: normal inspection, non-tender, supple, full range of motion Respiratory Exam: wheezing, No respiratory distress Cardiovascular Exam: regular rate/rhythm, normal heart sounds Gastrointestinal/Abdomen Exam: soft, No tenderness, No mass Extremity Exam: normal inspection, normal range of motion, inflammation (BLLE), swelling, tenderness Back Exam: normal inspection, normal range of motion, No CVA tenderness, No vertebral tenderness Pelvic Exam: deferred Rectal Exam: deferred Objective Data Vital Signs: Vital Signs - 24 hr Temp Pulse Resp BP Pulse Ox 10/07/24 11:15 97.3 F 83 16 144/60 95 10/07/24 10:50 84 24 90 L 10/07/24 07:29 98.3 F 92 H 30 H 147/63 92 L 10/07/24 07:19 86 16 98 10/07/24 04:00 97.6 F 87 20 143/62 91 L 10/07/24 00:00 98.8 F 99 H 20 137/58 87 L 10/06/24 20:00 98.5 F 94 H 20 143/65 88 L 10/06/24 19:50 96 H 22 91 L 10/06/24 15:47 96 H 18 91 L Pain Assessment - Last Documented Pain Intensity 8 Pain Scale Used [facility] Intake and Output: Intake & Output 10/05/24 10/06/24 10/07/24 10/08/24 11:59 11:59 11:59 11:59 Intake Total 240 1430 Output Total 2400 Balance 240 -970 Weight 112.8 kg Lab Results: Lab Results-Last 24 Hours 10/06/24 10/06/24 10/06/24 Range/Units 06:00 16:31 21:16 WBC (3.98-10.04) x10^3/uL RBC (3.93-5.22) x10^6/uL Hgb (11.2-15.7) g/dL Hct (34.1-44.9) % MCV (79.4-94.8) fL MCH (25.6-32.2) pg MCHC (32.2-35.5) g/dL RDW (11.7-14.4) % Plt Count (182-369) x10^3/uL MPV (9.4-12.3) fL Sodium (135-145) mmol/L Potassium (3.5-5.1) mmol/L Chloride (98-107) mmol/L Carbon Dioxide (22-30) mmol/L Anion Gap (5-15) MEQ/L BUN (7-17) mg/dL Creatinine (0.52-1.04) mg/dL Estimated GFR ML/MIN Glucose (74-106) mg/dL POC Glucometer 301 H 344 H (74 to 106) mg/dL Hemoglobin A1c 8.98 H (4.5-6.0) % Calcium (8.4-10.2) mg/dL Iron (37-170) ug/dL TIBC (265-462) ug/dL Iron Saturation (20-39) % Ferritin (11.1-264) ng/mL Total Bilirubin (0.2-1.3) mg/dL AST (14-36) U/L ALT (0-35) U/L Alkaline Phosphatase (38-126) U/L Serum Total Protein (6.3-8.2) g/dL Albumin (3.5-5.0) g/dL Vitamin B12 (239-931) pg/mL Folic Acid (2.76 - >20) ng/mL 10/07/24 10/07/24 10/07/24 Range/Units 06:48 06:55 06:55 WBC 12.3 H (3.98-10.04) x10^3/uL RBC 3.35 L (3.93-5.22) x10^6/uL Hgb 8.9 L (11.2-15.7) g/dL Hct 30.0 L (34.1-44.9) % MCV 89.6 (79.4-94.8) fL MCH 26.6 (25.6-32.2) pg MCHC 29.7 L (32.2-35.5) g/dL RDW 16.3 H (11.7-14.4) % Plt Count 313 (182-369) x10^3/uL MPV 9.5 (9.4-12.3) fL Sodium 138 (135-145) mmol/L Potassium 4.8 (3.5-5.1) mmol/L Chloride 97 L (98-107) mmol/L Carbon Dioxide 38 H (22-30) mmol/L Anion Gap 7.9 (5-15) MEQ/L BUN 32 H (7-17) mg/dL Creatinine 0.92 (0.52-1.04) mg/dL Estimated GFR 67.8 ML/MIN Glucose 369 H (74-106) mg/dL POC Glucometer 336 H (74 to 106) mg/dL Hemoglobin A1c (4.5-6.0) % Calcium 8.8 (8.4-10.2) mg/dL Iron (37-170) ug/dL TIBC (265-462) ug/dL Iron Saturation (20-39) % Ferritin (11.1-264) ng/mL Total Bilirubin 0.30 (0.2-1.3) mg/dL AST 26 (14-36) U/L ALT 30 (0-35) U/L Alkaline Phosphatase 71 (38-126) U/L Serum Total Protein 7.1 (6.3-8.2) g/dL Albumin 3.5 (3.5-5.0) g/dL Vitamin B12 (239-931) pg/mL Folic Acid (2.76 - >20) ng/mL 10/07/24 10/07/24 10/07/24 Range/Units 06:55 06:55 11:27 WBC (3.98-10.04) x10^3/uL RBC (3.93-5.22) x10^6/uL Hgb (11.2-15.7) g/dL Hct (34.1-44.9) % MCV (79.4-94.8) fL MCH (25.6-32.2) pg MCHC (32.2-35.5) g/dL RDW (11.7-14.4) % Plt Count (182-369) x10^3/uL MPV (9.4-12.3) fL Sodium (135-145) mmol/L Potassium (3.5-5.1) mmol/L Chloride (98-107) mmol/L Carbon Dioxide (22-30) mmol/L Anion Gap (5-15) MEQ/L BUN (7-17) mg/dL Creatinine (0.52-1.04) mg/dL Estimated GFR ML/MIN Glucose (74-106) mg/dL POC Glucometer 293 H (74 to 106) mg/dL Hemoglobin A1c (4.5-6.0) % Calcium (8.4-10.2) mg/dL Iron 72 (37-170) ug/dL TIBC 252 L (265-462) ug/dL Iron Saturation 29 (20-39) % Ferritin 66.0 (11.1-264) ng/mL Total Bilirubin (0.2-1.3) mg/dL AST (14-36) U/L ALT (0-35) U/L Alkaline Phosphatase (38-126) U/L Serum Total Protein (6.3-8.2) g/dL Albumin (3.5-5.0) g/dL Vitamin B12 401 (239-931) pg/mL Folic Acid 11.1 (2.76 - >20) ng/mL Radiology Exams: Radiology Procedures Category Date Time Status CHEST 1 VIEW (PORTABLE) Stat Exams 10/06/24 03:31 Completed VENOUS BILATERAL EXTREMITY [US] Stat Exams 10/07/24 11:26 Ordered Assessment/Plan (1) COPD with exacerbation Current Visit: Yes Status: Acute Code(s): J44.1 - CHRONIC OBSTRUCTIVE PU LMONARY DISEASE W (ACUTE) EXACERBATION (2) Pneumonia Current Visit: No Status: Acute Qualifiers: Code(s): J18.9 - PNEUMONIA, UNSPECIFIED ORGANISM (3) Cellulitis of both lower extremities Current Visit: Yes Status: Acute Code(s): L03.115 - CELLULITIS OF RIGHT LOWER LIMB; L03.116 - CELLULITIS OF LEFT LOWER LIMB (4) CHF (congestive heart failure) Current Visit: No Status: Chronic Code(s): I50.9 - HEART FAILURE, UNSPECIFIED (5) PVD (peripheral vascular disease) Current Visit: No Status: Chronic Code(s): I73.9 - PERIPHERAL VASCULAR DISEASE, UNSPECIFIED (6) Unable to care for self Current Visit: No Status: Chronic Code(s): Z78.9 - OTHER SPECIFIED HEALTH STATUS (7) HTN (hypertension) Current Visit: No Status: Chronic Qualifiers: Code(s): I10 - ESSENTIAL (PRIMARY) HYPERTENSION (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 Heart not enlarged. Bony thorax intact again with osteopenia and degenerative changes. - BCx2 pending 2/ - On BL 5lNC - CBC, CMP reviewed - Lung sounds improved Code(s): J44.1 - CHRONIC OBSTRUCTIVE PULMONARY DISEASE W (ACUTE) EXACERBATION (2) Pneumonia Current Visit: No Status: Acute Qualifiers: Assessment & Plan: - see above plan Code(s): J18.9 - PNEUMONIA, UNSPECIFIED ORGANISM (3) Cellulitis of both lower extremities Current Visit: Yes Status: Acute Assessment & Plan: - podiatry consult - IV antibiotics - BC x2 - obtain wound culture if drainage 10/07 - BL wound cultures pending - venous duplex- pt refused - Per ECF will send records of most recent VD of BLLE - Prostat 64 Code(s): L03.115 - CELLULITIS OF RIGHT LOWER LIMB; L03.116 - CELLULITIS OF LEFT LOWER LIMB (4) CHF (congestive heart failure) Current Visit: No Status: Chronic Assessment & Plan: - Not in acute exacerbation - BNP 198 - Continue home meds Code(s): I50.9 - HEART FAILURE, UNSPECIFIED (5) PVD (peripheral vascular disease) Current Visit: No Status: Chronic Assessment & Plan: - adds to complexity Code(s): I73.9 - PERIPHERAL VASCULAR DISEASE, UNSPECIFIED (6) Unable to care for self Current Visit: No Status: Chronic Assessment & Plan: - lives at [facility] Code(s): Z78.9 - OTHER SPECIFIED HEALTH STATUS (7) HTN (hypertension) Current Visit: No Status: Chronic Qualifiers: Assessment & Plan: - Continue home meds - BP stable- trend Code(s): I10 - ESSENTIAL (PRIMARY) HYPERTENSION (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 Current Visit: No Status: Chronic Assessment & Plan: - accuchecks ac/hs - metformin - humalog s/s, lantus 10/07 - A1C 8.98- uncontrolled - nutrition consult - Lantus changed to BID and Humalog added with meals Code(s): E11.21 - TYPE 2 DIABETES MELLITUS WITH DIABETIC NEPHROPATHY (9) Morbid obesity Current Visit: Yes Status: Chronic Assessment & Plan: - advised ADA diet and exercise control Code(s): E66.01 - MORBID (SEVERE) OBESITY DUE TO EXCESS CALORIES Code(s): E66.01 - MORBID (SEVERE) OBESITY DUE TO EXCESS CALORIES (10) Anemia Current Visit: Yes Status: Acute Assessment & Plan: - Hgb 8.9 - Anemia labs VTE: Lovenox PPI: Protonix Next of KIN: [place] [phone] D/C plan: 2-3 days Code status: Full Code(s): D64.9 - ANEMIA, UNSPECIFIED
[2024-10-08 06:24] LABS: Hematocrit 32.2 % (34.1-44.9); Hemoglobin 9.3 g/dL (11.2-15.7); Mean Cell Volume 90.4 fL (79.4-94.8); Mean Corpuscular Hemoglobin 26.1 pg (25.6-32.2); Mean Corpuscular Hgb Concent. 28.9 g/dL (32.2-35.5); Mean Platelet Volume 9.9 fL (9.4-12.3); Platelet Count 349 x10^3/uL (182-369); Red Blood Count 3.56 x10^6/uL (3.93-5.22); Red Cell Distribution Width 16.7 % (11.7-14.4); White Blood Count 11.2 x10^3/uL (3.98-10.04)
[2024-10-08 06:48] LABS: ALBUMIN 3.5 g/dL (3.5-5.0); ANION GAP 9.6 MEQ/L (5-15); BILIRUBIN,TOTAL 0.2 mg/dL (0.2-1.3); Calcium 8.8 mg/dL (8.4-10.2); Creatinine 1 0.9 mg/dL (0.52-1.04); EST GLOMERULAR FILTRATION RATE 69.6 ML/MIN; Potassium 4.8 mmol/L (3.5-5.1); Total Protein 7.2 g/dL (6.3-8.2)
[2024-10-08 07:11] LABS: Slide Review YES
[2024-10-08] MEDS ORDERED: APRESOLINE 20 MG/ML INJ IV PRN (07:38)
[2024-10-08] MEDS: Cozaar 50 MG PO SCH (10:59)
--- NOTE | 2024-10-08 11:37 | PCM.NOTE ---
Date and Time: 10/08/24 1126 Subjective Assessment: 10/06/24 is a 68 year old female with PMHX of chronic respiratory failure secondary to COPD on 5 L oxygen, congestive heart failure, diabetes mellitus, fibromyalgia, chronic lower extremity swelling/venous stasis and ulcers, chronic morbid obesity,and resident of [facility]. She was sent in to ER for altered mental status and difficulty breathing. Patient on presentation is awake alert and fairly oriented and answering most of the questions appropriately. She received a breathing treatment and on reevaluation her oxygen is in mid 90s. Not a good historian and history is limited. She received Levaquin and clindamycin, as well as duoneb in ER will continue and add steroids. She has BLL E cellulitis and Pneumonia. Podiatry consulted. She denies CP, Abd. pain, N/V/D. 10/07/24 Pt resting in bed. Lung sounds have improved and she reports feeling better. For some reason podiatry consult cancelled yesterday. Podiatry reconsulted today. Venous duplex ordered stat by podiatry and pt refused stating it was too painful. Per ECF she recently had this done and they will send over records. W ound cultures of BLLE completed by nursing today as they have started to drain. Lantus changed to BID and Humalog added with meals. Continue IV antibiotics, steroids, duonebs, Advair. She denies any further concerns at this time. 10/08/24 Pt up in the chair today. Breathing improved on 4lNC 95%, Baseline 5lNC. Will change steroids to oral since she is breathing better. Consider changing IV antibiotics to PO tomorrow. Awaiting podiatry recs. Wound cultures pending. BLLE cellulitis improving. OP venous duplex done on 10/04 negative for DVT. Arterial duplex from 10/04 shows elevated velocity in the right profundus femoris artery suggesting high grade stenosis. Also elevated velocitites in the left common femoral artery and the left SFA which may represent 30-50% stenosis. Report on chart to review. Losartan increased to BID dosing as BP elevated in the evenings. WBC improving 11.2. Glucose remains elevated so humalog increased to 20 units with meals. Since decreasing steroids may need to decrease insulin tomorrow. She states she is feeling overall better. She denies CP, abd. pain, N/V/D. - Review of Systems Constitutional: No Fever, No Chills Eyes: No Symptoms Ears, Nose, & Throat: No Symptoms Respiratory: No Cough, No Short Of Breath Cardiac: No Chest Pain, No Edema, No Syncope Abdominal/Gastrointestinal: No Abdominal Pain, No Nausea, No Vomiting, No Diarrhea Genitourinary Symptoms: No Dysuria Musculoskeletal: No Back Pain, No Neck Pain Skin: Cellulitis, Skin Lesions (BLLE), No Rash Neurological: No Dizziness, No Focal Weakness, No Sensory Changes Psychological: No Symptoms Endocrine: No Symptoms Hematologic/Lymphatic: No Symptoms Immunological/Allergic: No Symptoms Objective Exam General Appearance: no apparent distress, alert, obese Neurologic Exam: alert, 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, cooperative, normal mood/affect, nml cerebellar function, sensation nml, No motor deficits Skin Exam: normal color, warm, dry Wound Assessment: Skin/Wound Assessment Wound/Incision Assessment Start: 10/06/24 19:39 Text: Status: Active Freq: Q12H Protocol: Document 10/08/24 08:00 (Rec: 10/08/24 08:11 [id number]) Wound/Incision Assessment bilateral lower legs Wound Assessment Shift Assessment Wound Type cellulitis Wound Stage Non Pressure Wound Drainage Amount Minimal Wound Bed Greatest Portion Red (Granulation),Shiny Comment open to air, barrier cream applied Wound Photo Photo Taken No Eye Exam: PERRL, EOMI, eyes nml inspection Ears, Nose, Throat Exam: normal ENT inspection, pharynx normal, moist mucous membranes Neck Exam: normal inspection, non-tender, supple, full range of motion Respiratory Exam: normal breath sounds, lungs clear, No respiratory distress Cardiovascular Exam: regular rate/rhythm, normal heart sounds Gastrointestinal/Abdomen Exam: soft, No tenderness, No mass Extremity Exam: normal inspection, normal range of motion, inflammation, swelling, tenderness, other (BLLE) Back Exam: normal inspection, normal range of motion, No CVA tenderness, No vertebral tenderness Pelvic Exam: deferred Rectal Exam: deferred Objective Data Vital Signs: Vital Signs - 24 hr Temp Pulse Resp BP Pulse Ox 10/08/24 11:16 98.0 F 84 16 147/64 95 10/08/24 10:42 87 18 91 L 10/08/24 07:12 79 18 92 L 10/08/24 07:11 97.8 F 81 29 H 178/73 94 L 10/08/24 04:00 99.3 F 87 24 173/72 86 L 10/08/24 00:00 98.0 F 85 21 163/69 90 L 10/07/24 19:52 98.8 F 88 19 146/64 89 L 10/07/24 19:22 89 24 92 L 10/07/24 16:00 98.0 F 90 16 141/65 92 L 10/07/24 15:13 85 20 92 L Pain Assessment - Last Documented Pain Intensity 7 Pain Scale Used 0-10 Pain Scale Intake and Output: Intake & Output 10/05/24 10/06/24 10/07/24 10/08/24 11:59 11:59 11:59 11:59 Intake Total 240 1430 2690 Output Total 2400 675 Balance 240 -970 2014 Weight 112.8 kg Lab Results: Lab Results-Last 24 Hours 10/07/24 10/07/24 10/07/24 Range/Units 11:27 16:23 21:05 WBC (3.98-10.04) x10^3/uL RBC (3.93-5.22) x10^6/uL Hgb (11.2-15.7) g/dL Hct (34.1-44.9) % MCV (79.4-94.8) fL MCH (25.6-32.2) pg MCHC (32.2-35.5) g/dL RDW (11.7-14.4) % Plt Count (182-369) x10^3/uL MPV (9.4-12.3) fL Sodium (135-145) mmol/L Potassium (3.5-5.1) mmol/L Chloride (98-107) mmol/L Carbon Dioxide (22-30) mmol/L Anion Gap (5-15) MEQ/L BUN (7-17) mg/dL Creatinine (0.52-1.04) mg/dL Estimated GFR ML/MIN Glucose (74-106) mg/dL POC Glucometer 293 H 313 H 335 H (74 to 106) mg/dL Calcium (8.4-10.2) mg/dL Total Bilirubin (0.2-1.3) mg/dL AST (14-36) U/L ALT (0-35) U/L Alkaline Phosphatase (38-126) U/L Serum Total Protein (6.3-8.2) g/dL Albumin (3.5-5.0) g/dL Slides for Path Review 10/08/24 10/08/24 10/08/24 Range/Units 06:15 06:15 07:20 WBC 11.2 H (3.98-10.04) x10^3/uL RBC 3.56 L (3.93-5.22) x10^6/uL Hgb 9.3 L (11.2-15.7) g/dL Hct 32.2 L (34.1-44.9) % MCV 90.4 (79.4-94.8) fL MCH 26.1 (25.6-32.2) pg MCHC 28.9 L (32.2-35.5) g/dL RDW 16.7 H (11.7-14.4) % Plt Count 349 (182-369) x10^3/uL MPV 9.9 (9.4-12.3) fL Sodium 138 (135-145) mmol/L Potassium 4.8 (3.5-5.1) mmol/L Chloride 94 L (98-107) mmol/L Carbon Dioxide 39 H (22-30) mmol/L Anion Gap 9.6 (5-15) MEQ/L BUN 38 H (7-17) mg/dL Creatinine 0.90 (0.52-1.04) mg/dL Estimated GFR 69.6 ML/MIN Glucose 268 H (74-106) mg/dL POC Glucometer 272 H (74 to 106) mg/dL Calcium 8.8 (8.4-10.2) mg/dL Total Bilirubin 0.20 (0.2-1.3) mg/dL AST 23 (14-36) U/L ALT 23 (0-35) U/L Alkaline Phosphatase 66 (38-126) U/L Serum Total Protein 7.2 (6.3-8.2) g/dL Albumin 3.5 (3.5-5.0) g/dL Slides for Path Review YES Radiology Exams: Radiology Procedures Category Date Time Status VENOUS BILATERAL EXTREMITY [US] Stat Exams 10/07/24 11:26 Ordered Assessment/Plan (1) COPD with exacerbation Current Visit: Yes Status: Acute Code(s): J44.1 - CHRONIC OBSTRUCTIVE PULMONARY DISEASE W (ACUTE) EXACERBATION (2) Pneumonia Current Visit: No Status: Acute Qualifiers: Code(s): J18.9 - PNEUMONIA, UNSPECIFIED ORGANISM (3) Cellulitis of both lower extremities Current Visit: Yes Status: Acute Code(s): L03.115 - CELLULITIS OF RIGHT LOWER LIMB; L03.116 - CELLULITIS OF LEFT LOWER LIMB (4) CHF (congestive heart failure) Current Visit: No Status: Chronic Code(s): I50.9 - HEART FAILURE, UNSPECIFIED (5) PVD (peripheral vascular disease) Current Visit: No Status: Chronic Code(s): I73.9 - PERIPHERAL VASCULAR DISEASE, UNSPECIFIED (6) Unable to care for self Current Visit: No Status: Chronic Code(s): Z78.9 - OTHER SPECIFIED HEALTH STATUS (7) HTN (hypertension) Current Visit: No Status: Chronic Qualifiers: Code(s): I10 - ESSENTIAL (PRIMARY) HYPERTENSION (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 Heart not enlarged. Bony thorax intact again with osteopenia and degenerative changes. - BCx2 pending 2/ - On BL 5lNC - CBC, CMP reviewed - Lung sounds improved 2/2 - On 4lNC 95%- 5lNC BL - sitting up in chair today - steroids changed to PO BID - BC x2 neg. - consider changing IV antibiotics to PO tomorrow - CBC, CMP reviewed Code(s): J44.1 - CHRONIC OBSTRUCTIVE PULMONARY DISEASE W (ACUTE) EXACERBATION (2) Pneumonia Current Visit: No Status: Acute Qualifiers: Assessment & Plan: - see above plan Code(s): J18.9 - PNEUMONIA, UNSPECIFIED ORGANISM (3) Cellulitis of both lower extremities Current Visit: Yes Status: Acute Assessment & Plan: - podiatry consult - IV antibiotics - BC x2 - obtain wound culture if drainage 10/07 - BL wound cultures pending - venous duplex- pt refused - Per ECF will send records of most recent VD of BLLE - Prostat 64 2/2 - OP venous duplex done on 10/04 negative for DVT. -Report on chart to review. - pending podiatry consult - BC x2 neg. - WC pending x3 Code(s): L03.115 - CELLULITIS OF RIGHT LOWER LIMB; L03.116 - CELLULITIS OF LEFT LOWER LIMB (4) CHF (congestive heart failure) Current Visit: No Status: Chronic Assessment & Plan: - Not in acute exacerbation - BNP 198 - Continue home meds Code(s): I50.9 - HEART FAILURE, UNSPECIFIED (5) PVD (peripheral vascular disease) Current Visit: No Status: Chronic Assessment & Plan: - adds to complexity 2/2 - Arterial duplex from 10/04 OP shows elevated velocity in the right profundus femoris artery suggesting high grade stenosis. Also elevated velocitites in the left common femoral artery and the left SFA which may represent 30-50% stenosis. Report on chart to review. 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 Current Visit: No Status: Chronic Assessment & Plan: - accuchecks ac/hs - metformin - humalog s/s, lantus 2/ - A1C 8.98- uncontrolled - nutrition consult - Lantus changed to BID and Humalog added with meals 2/2 - Steroids decreased and changed to PO today - Humalog changed to 20 units with meals- consider decreasing tomorrow Code(s): E11.21 - TYPE 2 DIABETES MELLITUS WITH DIABETIC NEPHROPATHY (9) Morbid obesity Current Visit: Yes Status: Chronic Assessment & Plan: - advised ADA diet and exercise control Code(s): E66.01 - MORBID (SEVERE) OBESITY DUE TO EXCESS CALORIES (10) Anemia Current Visit: Yes Status: Acute Assessment & Plan: - Hgb 8.9 - Anemia labs- reviewed 2/2 - Hgb 9.3- stable VTE: Lovenox PPI: Protonix Next of KIN: [place] [phone] D/C plan: 2-3 days Code status: Full Code(s): D64.9 - ANEMIA, UNSPECIFIED Code(s): D64.9 - ANEMIA, UNSPECIFIED
[2024-10-08] MEDS: HUMALOG SQ SCH (12:07)
[2024-10-08] MEDS: DELTASONE 20 MG PO SCH (21:41)
--- NOTE | 2024-10-09 05:10 | PCM.NOTE ---
Date and Time: 10/09/24 0501 Subjective Assessment: is a 68 year old female with PMHX of chronic respiratory failure secondary to COPD on 5 L oxygen, congestive heart failure, diabetes mellitus, fibromyalgia, chronic lower extremity swelling/venous stasis and ulcers, chronic morbid obesity,and resident of prison admitted 10/06/24 pneumonia and cellulitis of BLE. CXR showing new left mid to lower lung infiltrate/atelectasis/effusion and new right base infiltrate/atelectasis.Oxygen needs at baseline 5L. OP venous duplex done on 10/04 negative for DVT. Arterial duplex from 10/04 shows elevated velocity in the right profundus femoris artery suggesting high grade stenosis. Also elevated velocitites in the left common femoral artery and the left SFA which may represent 30-50% stenosis. Report on chart to review. Losartan increased to BID dosing as BP elevated in the evenings. Declines repeat at this time. Patient receiving IP treatment with clindamycin/levofloxacin/steroids/ bumex/metolazone. Podiatry consulted. Appreciate recommendations. 10/09/24: Met with patient bedside. Endorses increased wheezing, cough, and chest tightness. Lung sounds coarse with exp wheezing bilaterally on auscultation. Will repeat CXR and increase steroid today. Podiatry consulted and unna boots placed. Will continue abx. BP and blood glucose levels improved. - Review of Systems Constitutional: Weakness Eyes: No Symptoms Ears, Nose, & Throat: No Symptoms Respiratory: Cough, Short Of Breath, Wheezing Cardiac: Edema (BLE) Abdominal/Gastrointestinal: No Symptoms Genitourinary Symptoms: No Symptoms Musculoskeletal: No Symptoms Skin: Cellulitis (BLE), Skin Lesions (BLE) Neurological: No Symptoms Psychological: No Symptoms Endocrine: No Symptoms Hematologic/Lymphatic: No Symptoms Immunological/Allergic: No Symptoms Objective Exam General Appearance: no apparent distress Neurologic Exam: alert, 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, cooperative Skin Exam: normal color Wound Assessment: Skin/Wound Assessment Wound/Incision Assessment Start: 10/06/24 19:39 Text: Status: Active Freq: Q12H Protocol: Document 10/08/24 20:00 LB (Rec: 10/09/24 01:09 LB [id number]) Wound/Incision Assessment bilateral lower legs Wound Assessment Shift Assessment Wound Type cellulitis Wound Stage Non Pressure Wound Drainage Amount Minimal Drainage Description Yellow General Appearance Open to air,Reddened Wound Bed Greatest Portion Red (Granulation),Shiny Comment open to air, barrier cream applied Wound Photo Photo Taken No Eye Exam: PERRL Ears, Nose, Throat Exam: normal ENT inspection Neck Exam: normal inspection Respiratory Exam: diminished breath sounds, crackles/rales, wheezing Cardiovascular Exam: regular rate/rhythm, normal heart sounds Gastrointestinal/Abdomen Exam: soft, normal bowel sounds Extremity Exam: inflammation (BLE with erythema, open wounds with drainage), swelling Back Exam: normal inspection Pelvic Exam: deferred Rectal Exam: deferred Objective Data Vital Signs: Vital Signs - 24 hr Temp Pulse Resp BP Pulse Ox 10/09/24 03:00 97.7 F 88 30 H 151/64 91 L 10/08/24 23:00 97.1 F 79 19 128/60 96 10/08/24 19:16 97.0 F 83 25 H 130/59 99 10/08/24 19:08 74 20 90 L 10/08/24 16:00 98.0 F 93 H 16 119/53 92 L 10/08/24 15:18 74 20 100 10/08/24 11:16 98.0 F 84 16 147/64 95 10/08/24 10:42 87 18 91 L 10/08/24 07:12 79 18 92 L 10/08/24 07:11 97.8 F 81 29 H 178/73 94 L Pain Assessment - Last Documented Pain Intensity 8 Pain Scale Used [facility] Intake and Output: Intake & Output 10/06/24 10/07/24 10/08/24 10/09/24 11:59 11:59 11:59 11:59 Intake Total 240 1430 2690 480 Output Total 2400 675 500 Balance 240 -970 2014 Weight 112.8 kg Lab Results: Lab Results-Last 24 Hours 10/08/24 10/08/24 10/08/24 Range/Units 06:15 06:15 07:20 WBC 11.2 H (3.98-10.04) x10^3/uL RBC 3.56 L (3.93-5.22) x10^6/uL Hgb 9.3 L (11.2-15.7) g/dL Hct 32.2 L (34.1-44.9) % MCV 90.4 (79.4-94.8) fL MCH 26.1 (25.6-32.2) pg MCHC 28.9 L (32.2-35.5) g/dL RDW 16.7 H (11.7-14.4) % Plt Count 349 (182-369) x10^3/uL MPV 9.9 (9.4-12.3) fL Sodium 138 (135-145) mmol/L Potassium 4.8 (3.5-5.1) mmol/L Chloride 94 L (98-107) mmol/L Carbon Dioxide 39 H (22-30) mmol/L Anion Gap 9.6 (5-15) MEQ/L BUN 38 H (7-17) mg/dL Creatinine 0.90 (0.52-1.04) mg/dL Estimated GFR 69.6 ML/MIN Glucose 268 H (74-106) mg/dL POC Glucometer 272 H (74 to 106) mg/dL Calcium 8.8 (8.4-10.2) mg/dL Total Bilirubin 0.20 (0.2-1.3) mg/dL AST 23 (14-36) U/L ALT 23 (0-35) U/L Alkaline Phosphatase 66 (38-126) U/L Serum Total Protein 7.2 (6.3-8.2) g/dL Albumin 3.5 (3.5-5.0) g/dL Slides for Path Review YES 10/08/24 10/08/24 10/08/24 Range/Units 11:27 16:16 20:43 WBC (3.98-10.04) x10^3/uL RBC (3.93-5.22) x10^6/uL Hgb (11.2-15.7) g/dL Hct (34.1-44.9) % MCV (79.4-94.8) fL MCH (25.6-32.2) pg MCHC (32.2-35.5) g/dL RDW (11.7-14.4) % Plt Count (182-369) x10^3/uL MPV (9.4-12.3) fL Sodium (135-145) mmol/L Potassium (3.5-5.1) mmol/L Chloride (98-107) mmol/L Carbon Dioxide (22-30) mmol/L Anion Gap (5-15) MEQ/L BUN (7-17) mg/dL Creatinine (0.52-1.04) mg/dL Estimated GFR ML/MIN Glucose (74-106) mg/dL POC Glucometer 241 H 178 H 121 H (74 to 106) mg/dL Calcium (8.4-10.2) mg/dL Total Bilirubin (0.2-1.3) mg/dL AST (14-36) U/L ALT (0-35) U/L Alkaline Phosphatase (38-126) U/L Serum Total Protein (6.3-8.2) g/dL Albumin (3.5-5.0) g/dL Slides for Path Review Radiology Exams: Radiology Procedures Category Date Time Status VENOUS BILATERAL EXTREMITY [US] Stat Exams 10/07/24 11:26 Ordered Assessment/Plan (1) Pneumonia Current Visit: No Status: Acute Qualifiers: Assessment & Plan: - CXR 10/06/24 demonstrates new left mid to lower lung infiltrate/atelectasis/effusion and new right base infiltrate/atelectasis. -Continue prednisone, duonebs prn, advair, levaquin -on baseline 5L - supplemental oxygen as needed to maintain spo2 > 89% -WBC reviewed at 9.8<11.2<12.3 - WNL -CMP reviewed with CO2 elevated at 36<39- improving -Repeat CXR today -Increase prednisone to 30 bid -Duonebs Code(s): J18.9 - PNEUMONIA, UNSPECIFIED ORGANISM (2) COPD with exacerbation Current Visit: Yes Status: Acute Assessment & Plan: - Duonebs, Sterods, advair - on 5L NC - BL 5lNC O2 - CBC, CMP reviewed - BCx2 NGTD -RT following Code(s): J44.1 - CHRONIC OBSTRUCTIVE PULMONARY DISEASE W (ACUTE) EXACERBATION (3) Cellulitis of both lower extremities Current Visit: Yes Status: Acute Assessment & Plan: - podiatry consulted - reviewed documentation from 10/09/24 -agree with plan for unna boots and continuation of abx -dressing changes per podiatry - Iodine pain to the legs adaotic 4x4 unna boot kerlix and coban applied with moderate compression MWF at this time -barbara borders -elevate legs -Clindamycin/Levaquin - BC x2 NGTD - BL wound cultures pending - venous duplex- OP venous duplex done on 10/04 negative for DVT. Arterial duplex from 10/04 shows elevated velocity in the right profundus femoris artery suggesting high grade stenosis. Also elevated velocitites in the left common femoral artery and the left SFA which may represent 30-50% stenosis. Report on chart to review. - Prostat 64 Code(s): L03.115 - CELLULITIS OF RIGHT LOWER LIMB; L03.116 - CELLULITIS OF LEFT LOWER LIMB (4) Anemia Current Visit: Yes Status: Acute Assessment & Plan: - Iron labs reviewed with iron sat at 29% -Hgb reviewed at Code(s): D64.9 - ANEMIA, UNSPECIFIED (5) Morbid obesity Current Visit: Yes Status: Chronic Assessment & Plan: - advised ADA diet and exercise control Code(s): E66.01 - MORBID (SEVERE) OBESITY DUE TO EXCESS CALORIES (6) HTN (hypertension) Current Visit: No Status: Chronic Qualifiers: Assessment & Plan: -Losartan increased to BID dosing Code(s): I10 - ESSENTIAL (PRIMARY) HYPERTENSION (7) PVD (peripheral vascular disease) Current Visit: No Status: Chronic Assessment & Plan: -noted adds to complexity Code(s): I73.9 - PERIPHERAL VASCULAR DISEASE, UNSPECIFIED (8) Type 2 diabetes mellitus Current Visit: No Status: Chronic Qualifiers: Diabetes mellitus retirement insulin use: without intermediate frame tender use Assessment & Plan: - accuchecks ac/hs - humalog s/s, lantus - A1C 8.98- nutrition consult - Lantus changed to BID and Humalog added with meals -Blood glucose levels reviewed, improving- trend with adjustments as needed- nursing to inform if patient with > 200 blood glucose levels consistently (9) Unable to care for self Current Visit: No Status: Chronic Assessment & Plan: - [facility] Code(s): Z78.9 - OTHER SPECIFIED HEALTH STATUS (10) CHF (congestive heart failure) Current Visit: Yes Status: Acute Assessment & Plan: - Not in appear to be acute exacerbation - BNP 198 - Continue home meds VTE: Lovenox PPI: Protonix Next of KIN: [place] [phone] D/C plan: 2-3 days Code status: Full Code(s): I50.9 - HEART FAILURE, UNSPECIFIED
[2024-10-09 05:13] LABS: Hemoglobin 9.2 g/dL (11.2-15.7); Mean Cell Volume 91.4 fL (79.4-94.8); Mean Corpuscular Hemoglobin 26.3 pg (25.6-32.2); Mean Corpuscular Hgb Concent. 28.8 g/dL (32.2-35.5); Mean Platelet Volume 9.7 fL (9.4-12.3); Platelet Count 329 x10^3/uL (182-369); Red Cell Distribution Width 17.2 % (11.7-14.4); White Blood Count 9.8 x10^3/uL (3.98-10.04)
[2024-10-09 05:43] LABS: ALBUMIN 3.5 g/dL (3.5-5.0); BILIRUBIN,TOTAL 0.3 mg/dL (0.2-1.3); Calcium 8.6 mg/dL (8.4-10.2); Creatinine 1 1.01 mg/dL (0.52-1.04); EST GLOMERULAR FILTRATION RATE 60.6 ML/MIN; Potassium 4.4 mmol/L (3.5-5.1); Total Protein 6.9 g/dL (6.3-8.2)
--- NOTE | 2024-10-09 07:22 | PCM.CONS ---
Podiatry HPI - Consult Consulting Provider: LULA BUTLER DPM - HPI History of Present Illness: 68 years old female with multiple medical problems including chronic respiratory failure secondary to COPD on 5 L oxygen, congestive heart failure, diabetes mellitus, fibromyalgia, chronic lower extremity swelling/venous stasis and ulcers, resident of shelter is sent in ER for altered mental status and difficulty breathing. Patient on presentation is awake alert and fairly oriented and answering most of the questions appropriately. She is receiving breathing treatment and on reevaluation her oxygen is in mid 90s. Not a good historian and history is limited. Medications & Allergies Home Medications: Home Medication List Ropinirole HCl 3 mg PO QID 01/23/23 [History Confirmed 10/06/24] Atorvastatin Calcium [Lipitor] 20 mg PO HS 11/13/23 [History Confirmed 10/06/24] Bumetanide 2 mg PO DAILY 11/13/23 [History Confirmed 10/06/24] Glimepiride 1 mg PO DAILY 11/13/23 [History Confirmed 10/06/24] Losartan Potassium [Cozaar] 25 mg PO DAILY 02/09/24 [History Confirmed 10/06/24] Metformin HCl [Metformin HCl ER] 500 mg PO DAILY 02/09/24 [History Confirmed 10/06/24] Nystatin Powder 15 gm [Nystop Powder 15 gm] 1 gm TP BID 10 Days #15 misc 02/11/24 [Rx Confirmed 10/06/24] Acetaminophen 325 mg [Tylenol 325 mg] 650 mg PO Q6H PRN 10/06/24 [History Confirmed 10/06/24] Albuterol 2.5 mg/3 ml Neb [Proventil 2.5 mg/3 ml Neb] 1 vial IH Q4H PRN 10/06/24 [History Confirmed 10/06/24] Cholecalciferol (Vitamin D3) [Vitamin D3] 10 mcg PO DAILY 10/06/24 [History Confirmed 10/06/24] Cranberry Fruit Concentrate [Cranberry] 300 mg PO DAILY 10/06/24 [History Confirmed 10/06/24] Dextran 70/Hypromellose [Artificial Tears] 1 each OP TID 10/06/24 [History Confirmed 10/06/24] Fluticasone/Umeclidin/Vilanter [Trelegy Ellipta 100-62.5-25] 1 puff IH DAILY 10/06/24 [History Confirmed 10/06/24] Insulin Glargine,Hum.rec.anlog [Lantus] 40 unit SQ HS 10/06/24 [History Confirmed 10/06/24] Insulin Lispro [Humalog Kwikpen] See Rx Instructions .ROUTE .COMPLEX 10/06/24 [History Confirmed 10/06/24] Loratadine 10 mg [Claritin 10 mg] 10 mg PO DAILY 10/06/24 [History Confirmed 10/06/24] Metolazone 2.5 mg [Zaroxolyn 2.5 MG] 1 tab PO DAILY 10/06/24 [History Confirmed 10/06/24] Mineral Oil/Pet Hy-Phl 50 gm [Aquaphor Ointment 50 gm] 1 gm EXT BID 10/06/24 [History Confirmed 10/06/24] Nitroglycerin 0.4 mg Tablet [Nitrostat 0.4 MG Tablet] 0.4 mg SL UD PRN 10/06/24 [History Confirmed 10/06/24] Allergies/Adverse Reactions: Allergies Allergy/AdvReac Type Severity Reaction Status Date / Time codeine Allergy Intermediate rash, Verified 10/06/24 08:09 itching cefaclor [From Ceclor] Allergy Mild Rash Verified 10/06/24 08:09 Penicillins Allergy Mild Swelling Verified 10/06/24 08:09 bacitracin AdvReac Mild Itching Verified 10/06/24 08:09 [From Neosporin ([id number])] bacitracin zinc AdvReac Mild Itching Verified 10/06/24 08:09 [From Neosporin ([id number])] levofloxacin [From Levaquin] AdvReac Mild itch Verified 10/06/24 08:09 neomycin sulfate AdvReac Mild itch Verified 10/06/24 08:09 [From Neosporin ([id number])] polymyxin B AdvReac Mild Itching Verified 10/06/24 08:09 [From Neosporin ([id number])] - Past Medical History Past Medical History: Yes Neurological History: No Pertinent History ENT History: No Pertinent History Cardiac History: Congestive Heart Failure, Hypertension, Peripheral Vascular Disease Respiratory History: COPD, Emphysema Endocrine Medical History: Diabetes Type II Musculoskelatal History: Fibromyalgia GI Medical History: No Pertinent History History: Other Pyscho-Social History: No Pertinent History Reproductive Disorders: No Pertinent History Comment: Stress Incontinence - Past Surgical History Past Surgical History: Yes Neuro Surgical History: No Pertinent History Cardiac History: No Pertinent History Respiratory Surgery: No Pertinent History GI Surgical History: Cholecystectomy Genitourinary Surgical Hx: No Pertinent History Musculskeletal Surgical Hx: No Pertinent History Female Surgical History: Tubal Ligation Significant Family History: no pertinent family hx - Social History Smoking Status: Current every day smoker How long have you smoked: 50 years Exposure to second hand smoke: Yes Alcohol: None Drug Use: none - Social Determinants of Health Will the patient participate in the screening: Declined to provide Do you worry about a steady place to live?: No Do you have any problems with any of the following?: No known problems In the past 12 months,have you had to go without utilities?: No Have you or anyone in your house had to go without enough: No Transportation Issues: No Has anyone in your support network made you feel unsafe?: No Does the patient want assistance with any of the above?: No Comment: pt drowsy and not answering- info taken from ems Physical Exam - Narrative Narrative Physical Exam: Podiatry Physical Exam Results - Labs Lab/Micro Results: Lab Results-Last 24 Hours 10/08/24 10/08/24 10/08/24 Range/Units 07:20 11:27 16:16 WBC (3.98-10.04) x10^3/uL RBC (3.93-5.22) x10^6/uL Hgb (11.2-15.7) g/dL Hct (34.1-44.9) % MCV (79.4-94.8) fL MCH (25.6-32.2) pg MCHC (32.2-35.5) g/dL RDW (11.7-14.4) % Plt Count (182-369) x10^3/uL MPV (9.4-12.3) fL Sodium (135-145) mmol/L Potassium (3.5-5.1) mmol/L Chloride (98-107) mmol/L Carbon Dioxide (22-30) mmol/L Anion Gap (5-15) MEQ/L BUN (7-17) mg/dL Creatinine (0.52-1.04) mg/dL Estimated GFR ML/MIN Glucose (74-106) mg/dL POC Glucometer 272 H 241 H 178 H (74 to 106) mg/dL Calcium (8.4-10.2) mg/dL Total Bilirubin (0.2-1.3) mg/dL AST (14-36) U/L ALT (0-35) U/L Alkaline Phosphatase (38-126) U/L Serum Total Protein (6.3-8.2) g/dL Albumin (3.5-5.0) g/dL 10/08/24 10/09/24 10/09/24 Range/Units 20:43 05:05 05:05 WBC 9.8 (3.98-10.04) x10^3/uL RBC 3.50 L (3.93-5.22) x10^6/uL Hgb 9.2 L (11.2-15.7) g/dL Hct 32.0 L (34.1-44.9) % MCV 91.4 (79.4-94.8) fL MCH 26.3 (25.6-32.2) pg MCHC 28.8 L (32.2-35.5) g/dL RDW 17.2 H (11.7-14.4) % Plt Count 329 (182-369) x10^3/uL MPV 9.7 (9.4-12.3) fL Sodium 140 (135-145) mmol/L Potassium 4.4 (3.5-5.1) mmol/L Chloride 98 (98-107) mmol/L Carbon Dioxide 36 H (22-30) mmol/L Anion Gap 10.0 (5-15) MEQ/L BUN 37 H (7-17) mg/dL Creatinine 1.01 (0.52-1.04) mg/dL Estimated GFR 60.6 ML/MIN Glucose 203 H (74-106) mg/dL POC Glucometer 121 H (74 to 106) mg/dL Calcium 8.6 (8.4-10.2) mg/dL Total Bilirubin 0.30 (0.2-1.3) mg/dL AST 28 (14-36) U/L ALT 24 (0-35) U/L Alkaline Phosphatase 60 (38-126) U/L Serum Total Protein 6.9 (6.3-8.2) g/dL Albumin 3.5 (3.5-5.0) g/dL Microbiology 10/06/24 02:35 Blood Culture - Preliminary Blood 10/06/24 02:35 Blood Culture - Preliminary Blood Accuchecks Date 10/08/24 Date 10/08/24 Date 10/08/24 Time 16:23 Time 13:04 Time 07:34 - Radiology Impressions Radiology Exams & Impressions: Radiology Procedures Category Date Time Status VENOUS BILATERAL EXTREMITY [US] Stat Exams 10/07/24 11:26 Ordered Assessment/Plan (1) CHF (congestive heart failure) Current Visit: Yes Status: Acute Code(s): I50.9 - HEART FAILURE, UNSPECIFIED (2) COPD with exacerbation Current Visit: Yes Status: Acute Code(s): J44.1 - CHRONIC OBSTRUCTIVE PULMONARY DISEASE W (ACUTE) EXACERBATION (3) Cellulitis of both lower extremities Current Visit: Yes Status: Acute Assessment & Plan: Patient examination and evaluation Ordered venous dopplers as well as arterial ultrasounds demonstrating no occlusion to the deep or superficial veins of the lower extremity. Monophasic and biphasic pulses demonstrated on arterial ultrasound adequate for wound healing and compression therapy. IV antibiotics levoflxoacin at this time per medicine team BC x2 pending Pending wound cultures for wounds Patient adequate candidate for compression therapy. Iodine pain to the legs adaotic 4x4 unna boot kerlix and coban applied with moderate compression MWF at this time Will monitor with inclusion of diuresis Patient encouraged to elevate legs Will follow with you Thank you for the consult. Code(s): L03.115 - CELLULITIS OF RIGHT LOWER LIMB; L03.116 - CELLULITIS OF LEFT LOWER LIMB (4) Morbid obesity Current Visit: Yes Status: Chronic Code(s): E66.01 - MORBID (SEVERE) OBESITY DUE TO EXCESS CALORIES (5) Acute and chronic respiratory failure with hypoxia Current Visit: No Status: Acute Code(s): J96.21 - ACUTE AND CHRONIC RESPIRATORY FAILURE WITH HYPOXIA (6) Acute exacerbation of chronic obstructive pulmonary disease (COPD) Current Visit: No Status: Acute Code(s): J44.1 - CHRONIC OBSTRUCTIVE PULMONARY DISEASE W (ACUTE) EXACERBATION (7) Bilateral lower leg cellulitis Current Visit: No Status: Acute Code(s): L03.116 - CELLULITIS OF LEFT LOWER LIMB; L03.115 - CELLULITIS OF RIGHT LOWER LIMB (8) Diabetic ulcer of lower leg Current Visit: No Status: Acute Code(s): E11.622 - TYPE 2 DIABETES MELLITUS WITH OTHER SKIN ULCER; L97.909 - NON-PRS CHRONIC ULC UNSP PRT OF UNSP LOW LEG W UNSP SEVERITY (9) Physical deconditioning Current Visit: No Status: Acute Code(s): R53.81 - OTHER MALAISE (10) Obesity (BMI 30-39.9) Current Visit: No Status: Chronic Code(s): E66.9 - OBESITY, UNSPECIFIED (11) PVD (peripheral vascular disease) Current Visit: No Status: Chronic Code(s): I73.9 - PERIPHERAL VASCULAR DISEASE, UNSPECIFIED (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
[2024-10-09] MEDS: PROVENTIL 2.5 MG/3 ML NEB IH PRN (09:00)
[2024-10-09] MEDS: Zaroxolyn 2.5 MG PO SCH (10:03)
[2024-10-09] MEDS ORDERED: DELTASONE 20 MG PO SCH (11:38)
--- NOTE | 2024-10-09 12:05 | XRAY ---
Indication: Short of breath. Comparison: October 06, 2024 Portable chest demonstrates improving right base infiltrate/atelectasis with minimal residual. Grossly stable left mid to lower lung infiltrate/atelectasis/effusion. Heart not enlarged again with tiny right hilar calcified nodes. No new cardiopulmonary abnormalities.
[2024-10-09] MEDS ORDERED: Sterile H2O 10 ml IJ ONE (12:52)
[2024-10-09] MEDS ORDERED: solu-MEDROL ONE (12:52)
[2024-10-09] MEDS: solu-MEDROL 40 MG, Sterile H2O 10 ml 1 ML IV STA (12:55)
[2024-10-09] MEDS: solu-MEDROL 40 MG, Sterile H2O 10 ml 1 ML IV SCH (21:40)
--- NOTE | 2024-10-10 05:00 | PCM.NOTE ---
Date and Time: 10/10/24 0459 Subjective Assessment: is a 68 year old female with PMHX of chronic respiratory failure secondary to COPD on 5 L oxygen, congestive heart failure, diabetes mellitus, fibromyalgia, chronic lower extremity swelling/venous stasis and ulcers, chronic morbid obesity,and resident of [facility] admitted 10/06/24 pneumonia and cellulitis of BLE. CXR showing new left mid to lower lung infiltrate/atelectasis/effusion and new right base infiltrate/atelectasis.Oxygen needs at baseline 5L. OP venous duplex done on 10/04 negative for DVT. Arterial duplex from 10/04 shows elevated velocity in the right profundus femoris artery suggesting high grade stenosis. Also elevated velocitites in the left common femoral artery and the left SFA which may represent 30-50% stenosis. Report on chart to review. Losartan increased to BID dosing as BP elevated in the evenings. Declines repeat at this time. Initial IP treatment with clinda mycin/levofloxacin/steroids/ bumex/metolazone. Wound cultures with MRSA, streptococcus sangiusI, and proteus mirabillis. IV abx changed to Merem and clindamycin with pt's multiple allergies. Plan for PICC placement today. Podiatry consulted -Unna boots applied with dressing changes with Iodine pain to the legs adaotic 4x4 unna boot kerlix and coban applied with moderate compression MWF at this time. 10/09/24: Met with patient bedside. Endorses increased wheezing, cough, and chest tightness. Lung sounds coarse with exp wheezing bilaterally on auscultation. Will repeat CXR and increase steroid today. Podiatry consulted and unna boots placed. Will continue abx. BP and blood glucose levels improved. 10/10/24: Met with patient bedside. Endorses improvement in dyspnea. Cough productive with white sputum. At baseline 5L oxygen. Discussed wound cultures and need for PICC placement for IV abx. Patient agreeable to plan. - Review of Systems Constitutional: Weakness Eyes: No Symptoms Ears, Nose, & Throat: No Symptoms Respiratory: Cough, Short Of Breath, Wheezing Cardiac: Edema (BLE with unna boots) Abdominal/Gastrointestinal: No Symptoms Genitourinary Symptoms: No Symptoms Musculoskeletal: No Symptoms Skin: Cellulitis, Skin Lesions (BLE ) Neurological: No Symptoms Psychological: No Symptoms Endocrine: No Symptoms Hematologic/Lymphatic: No Symptoms Immunological/Allergic: No Symptoms Objective Exam General Appearance: no apparent distress Neurologic Exam: alert, 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, cooperative Skin Exam: other (BLE with cellulitis - open wounds/drainage - with unna boots) Wound Assessment: Skin/Wound Assessment Wound/Incision Assessment Start: 10/06/24 19: 39 Text: Status: Active Freq: Q12H Protocol: Document 10/09/24 20:00 KX (Rec: 10/09/24 20:41 KX [id number]) Wound/Incision Assessment bilateral lower legs Wound Assessment Shift Assessment Wound Type cellulitis Wound Stage Non Pressure Wound Drainage Amount Minimal Drainage Description Yellow General Appearance Open to air,Reddened Wound Bed Greatest Portion Red (Granulation) Comment BLE wrapped Wound Photo Photo Taken No Eye Exam: PERRL Ears, Nose, Throat Exam: normal ENT inspection Neck Exam: normal inspection Respiratory Exam: crackles/rales, wheezing Cardiovascular Exam: regular rate/rhythm, normal heart sounds Gastrointestinal/Abdomen Exam: soft, normal bowel sounds Extremity Exam: inflammation, swelling Back Exam: normal inspection, normal range of motion Pelvic Exam: deferred Rectal Exam: deferred Objective Data Vital Signs: Vital Signs - 24 hr Temp Pulse Resp BP Pulse Ox 10/10/24 04:00 96.5 F 89 23 174/75 92 L 10/10/24 00:00 97.9 F 85 24 146/65 89 L 10/09/24 20:00 98.5 F 98 H 28 H 128/61 86 L 10/09/24 19:01 105 H 23 87 L 10/09/24 15:00 97.5 F 98 H 19 147/66 90 L 10/09/24 14:42 97 H 28 H 88 L 10/09/24 11:00 97.7 F 104 H 18 125/58 90 L 10/09/24 10:53 100 H 28 H 90 L 10/09/24 09:02 107 H 32 H 91 L 10/09/24 07:01 91 H 20 94 L 10/09/24 06:53 97.6 F 88 19 178/68 92 L Pain Assessment - Last Documented Pain Intensity 0 Pain Scale Used 0-10 Pain Scale Intake and Output: Intake & Output 10/07/24 10/08/24 10/09/24 10/10/24 11:59 11:59 11:59 11:59 Intake Total 1430 9327 488 137 Output Total 3152 994 977 700 Balance -970 2014 Lab Results: Lab Results-Last 24 Hours 10/09/24 10/09/24 10/09/24 Range/Units 05:05 05:05 07:50 WBC 9.8 (3.98-10.04) x10^3/uL RBC 3.50 L (3.93-5.22) x10^6/uL Hgb 9.2 L (11.2-15.7) g/dL Hct 32.0 L (34.1-44.9) % MCV 91.4 (79.4-94.8) fL MCH 26.3 (25.6-32.2) pg MCHC 28.8 L (32.2-35.5) g/dL RDW 17.2 H (11.7-14.4) % Plt Count 329 (182-369) x10^3/uL MPV 9.7 (9.4-12.3) fL Sodium 140 (135-145) mmol/L Potassium 4.4 (3.5-5.1) mmol/L Chloride 98 (98-107) mmol/L Carbon Dioxide 36 H (22-30) mmol/L Anion Gap 10.0 (5-15) MEQ/L BUN 37 H (7-17) mg/dL Creatinine 1.01 (0.52-1.04) mg/dL Estimated GFR 60.6 ML/MIN Glucose 203 H (74-106) mg/dL POC Glucometer 127 H (74 to 106) mg/dL Calcium 8.6 (8.4-10.2) mg/dL Total Bilirubin 0.30 (0.2-1.3) mg/dL AST 28 (14-36) U/L ALT 24 (0-35) U/L Alkaline Phosphatase 60 (38-126) U/L Serum Total Protein 6.9 (6.3-8.2) g/dL Albumin 3.5 (3.5-5.0) g/dL 10/09/24 10/09/24 10/09/24 Range/Units 11:49 16:38 21:15 WBC (3.98-10.04) x10^3/uL RBC (3.93-5.22) x10^6/uL Hgb (11.2-15.7) g/dL Hct (34.1-44.9) % MCV (79.4-94.8) fL MCH (25.6-32.2) pg MCHC (32.2-35.5) g/dL RDW (11.7-14.4) % Plt Count (182-369) x10^3/uL MPV (9.4-12.3) fL Sodium (135-145) mmol/L Potassium (3.5-5.1) mmol/L Chloride (98-107) mmol/L Carbon Dioxide (22-30) mmol/L Anion Gap (5-15) MEQ/L BUN (7-17) mg/dL Creatinine (0.52-1.04) mg/dL Estimated GFR ML/MIN Glucose (74-106) mg/dL POC Glucometer 74 93 220 H (74 to 106) mg/dL Calcium (8.4-10.2) mg/dL Total Bilirubin (0.2-1.3) mg/dL AST (14-36) U/L ALT (0-35) U/L Alkaline Phosphatase (38-126) U/L Serum Total Protein (6.3-8.2) g/dL Albumin (3.5-5.0) g/dL Radiology Exams: Radiology Procedures Category Date Time Status CHEST 1 VIEW (PORTABLE) Urgent Exams 10/09/24 11:27 Completed Multi-Disciplinary Progress Notes: Multi-Disciplinary Progress Notes 10/09/24 12:58 Case Management Note by Alicia Palacios CLINICAL UPDATE FAXED TO [facility] Initialized on 10/09/24 12:58 - END OF NOTE 10/09/24 12:53 Respiratory Note by Martina Garcia PTS SPO2 HAS GRADUALLY DEC OVER THIS AM. BS WHEEZEZ . O2 INC TO 6LPM. IV S OLUMEDROL 40 GIVEN. WILL CONTINUE TO MONITOR Initialized on 10/09/24 12:53 - END OF NOTE 10/09/24 10:54 Case Management Note by Alicia Palacios S/W PATIENT- NO CHANGE IN DC PLANS- PATIENT TO RETURN TO [facility] AT TIME OF DC Initialized on 10/09/24 10:54 - END OF NOTE Assessment/Plan (1) Pneumonia Current Visit: No Status: Acute Qualifiers: Assessment & Plan: - CXR 10/06/24 demonstrates new left mid to lower lung infiltrate/atelectasis/effusion and new right base infiltrate/atelectasis. -Continue prednisone, duonebs prn, advair, levaquin -on baseline 5L - supplemental oxygen as needed to maintain spo2 > 89% -WBC reviewed at 9.8<11.2<12.3 - WNL -CMP reviewed with CO2 elevated at 36<39- improving -Repeat CXR today -Increase prednisone to 30 bid -Duonebs 10/10/24: -Abx changed to clindamycin/Merrem -on baseline oxygen at 5L -Continue solumedrol -WBC reviewed and WNL at 8.7 Code(s): J18.9 - PNEUMONIA, UNSPECIFIED ORGANISM (2) COPD with exacerbation Current Visit: Yes Status: Acute Assessment & Plan: - Duonebs, Sterods, advair - on 5L NC - BL 5lNC O2 - CBC, CMP reviewed - BCx2 NGTD -RT following Code(s): J44.1 - CHRONIC OBSTRUCTIVE PULMONARY DISEASE W (ACUTE) EXACERBATION (3) Cellulitis of both lower extremities Current Visit: Yes Status: Acute Assessment & Plan: - podiatry consulted - reviewed documentation from 10/09/24 -agree with plan for unna boots and continuation of abx -dressing changes per podiatry - Iodine pain to the legs adaotic 4x4 unna boot kerlix and coban applied with moderate compression MWF at this time -barbara borders -elevate legs -Clindamycin/Levaquin - BC x2 NGTD - BL wound cultures pending - venous duplex- OP venous duplex done on 10/04 negative for DVT. Arterial duplex from 10/04 shows elevated velocity in the right profundus femoris artery suggesting high grade stenosis. Also elevated velocitites in the left common femoral artery and the left SFA which may represent 30-50% stenosis. Report on chart to review. - Prostat 64 10/10/24: -Wound cultures with MRSA, streptococcus sangiusI, and proteus mirabillis. IV abx changed to Merem and clindamycin with pt's multiple allergies - Plan for PICC placement today. -Podiatry following -Dressing changes as stated above Code(s): L03.115 - CELLULITIS OF RIGHT LOWER LIMB; L03.116 - CELLULITIS OF LEFT LOWER LIMB (4) Anemia Current Visit: Yes Status: Acute Assessment & Plan: - Iron labs reviewed with iron sat at 29% -Hgb reviewed at 9.8 - stable Code(s): D64.9 - ANEMIA, UNSPECIFIED (5) Morbid obesity Current Visit: Yes Status: Chronic Assessment & Plan: - advised ADA diet and exercise control Code(s): E66.01 - MORBID (SEVERE) OBESITY DUE TO EXCESS CALORIES (6) HTN (hypertension) Current Visit: No Status: Chronic Qualifiers: Assessment & Plan: -Losartan increased to BID dosing Code(s): I10 - ESSENTIAL (PRIMARY) HYPERTENSION (7) PVD (peripheral vascular disease) Current Visit: No Status: Chronic Assessment & Plan: -noted adds to complexity Code(s): I73.9 - PERIPHERAL VASCULAR DISEASE, UNSPECIFIED (8) Type 2 diabetes mellitus Current Visit: No Status: Chronic Qualifiers: Diabetes mellitus intermediate card tender insulin use: without longterm use Assessment & Plan: - accuchecks ac/hs - humalog s/s, lantus - A1C 8.98- nutrition consult - Lantus changed to BID and Humalog added with meals -Blood glucose levels reviewed, improving- trend with adjustments as needed- nursing to inform if patient with > 200 blood glucose levels consistently (9) Unable to care for self Current Visit: No Status: Chronic Assessment & Plan: - lives at [facility] Code(s): Z78.9 - OTHER SPECIFIED HEALTH STATUS (10) CHF (congestive heart failure) Current Visit: Yes Status: Acute Assessment & Plan: - Not in appear to be acute exacerbation - BNP 198 - Continue home meds VTE: Lovenox PPI: Protonix Next of KIN: [place] [phone] D/C plan: 2-3 days Code status: Full Code(s): J18.9 - PNEUMONIA, UNSPECIFIED ORGANISM (2) COPD with exacerbation Current Visit: Yes Status: Acute Code(s): J44.1 - CHRONIC OBSTRUCTIVE PULMONARY DISEASE W (ACUTE) EXACERBATION (3) Cellulitis of both lower extremities Current Visit: Yes Status: Acute Code(s): L03.115 - CELLULITIS OF RIGHT LOWER LIMB; L03.116 - CELLULITIS OF LEFT LOWER LIMB (4) Anemia Current Visit: Yes Status: Acute Code(s): D64.9 - ANEMIA, UNSPECIFIED (5) Morbid obesity Current Visit: Yes Status: Chronic Code(s): E66.01 - MORBID (SEVERE) OBESITY DUE TO EXCESS CALORIES (6) HTN (hypertension) Current Visit: No Status: Chronic Qualifiers: Code(s): I10 - ESSENTIAL (PRIMARY) HYPERTENSION (7) PVD (peripheral vascular disease) Current Visit: No Status: Chronic Code(s): I73.9 - PERIPHERAL VASCULAR DISEASE, UNSPECIFIED (8) Type 2 diabetes mellitus Current Visit: No Status: Chronic Qualifiers: Diabetes mellitus longterm insulin use: without longterm use (9) Unable to care for self Current Visit: No Status: Chronic Code(s): Z78.9 - OTHER SPECIFIED HEALTH STATUS (10) CHF (congestive heart failure) Current Visit: Yes Status: Acute Code(s): I50.9 - HEART FAILURE, UNSPECIFIED
[2024-10-10 05:08] LABS: Absolute Neutrophil Ct (ANC) 7.14 x10^3/uL (1.56-6.13); BASOPHIL % 0.3 % (0.1-1.2); Basophil (Absolute #) 0.03 x10^3/uL (0.01-0.08); Eosinophil % 0.1 % (0.7-5.8); Eosinophil (Absolute #) 0.01 x10^3/uL (0.04-0.36); Hematocrit 34.2 % (34.1-44.9); Hemoglobin 9.8 g/dL (11.2-15.7); IMMATURE GRAN # 0.38 x10^3u/L (0.001-0.031); IMMATURE GRAN % 4.4 % (0.001-0.429); Lymphocyte (Absolute #) 0.63 x10^3/uL (1.18-3.74); Lymphocytes % 7.2 % (19.3-51.7); Mean Cell Volume 91.2 fL (79.4-94.8); Mean Corpuscular Hemoglobin 26.1 pg (25.6-32.2); Mean Corpuscular Hgb Concent. 28.7 g/dL (32.2-35.5); Mean Platelet Volume 9.5 fL (9.4-12.3); Monocyte (Absolute #) 0.52 x10^3/uL (0.24-0.86); NUCLEATED RBC # 0.02 x10^3u/L (0.00-0.012); NUCLEATED RBC % 0.2 % (0.00-0.2); Platelet Count 301 x10^3/uL (182-369); Red Blood Count 3.75 x10^6/uL (3.93-5.22); Red Cell Distribution Width 17.2 % (11.7-14.4); White Blood Count 8.7 x10^3/uL (3.98-10.04)
[2024-10-10 05:26] LABS: ALBUMIN 3.8 g/dL (3.5-5.0); ANION GAP 11.4 MEQ/L (5-15); BILIRUBIN,TOTAL 0.4 mg/dL (0.2-1.3); Calcium 8.5 mg/dL (8.4-10.2); Creatinine 1 1.04 mg/dL (0.52-1.04); EST GLOMERULAR FILTRATION RATE 58.5 ML/MIN; Total Protein 7.3 g/dL (6.3-8.2)
--- NOTE | 2024-10-10 06:18 | TM.IN ---
Tele-Medicine Incident Note - Incident Note Tel-Medicine Incident Note: 10/10/24 0613 Cross Cover Note Notified of wound culture results: Growing MRSA (sensitive to clindamycin), Strep viridans (susceptibility not tested), and Proteus (resistant to Levaquin). Unfortunately, patient's history of multiple relatively mild reactions to allergens limits treatment options. Patient is currently on clindamycin and levofloxacin, meaning that the Proteus is not covered. The most straightforward response would be to replace the levofloxacin with ceftriaxone; good Strep coverage, and will give Proteus coverage as well as most other grm neg bacteria. However, patient has reaction of "rash" to cefaclor, a 2nd gen cephalosporin, causing a rash. Attempted to get patient to clarify severity of reaction, but she declined to use any similar antibiotic. Of note, patient has documented allergy to Levaquin but has been tolerating it to date. Only option short of aminoglycosides is to use carbapenems. Cross-reactivity to other beta-lactam allergies is extremely rare. Would definitely cover the Strep as well as the Proteus. Will continue clindamycin for MRSA coverage. Kris Carranza MD Telemedicine Hospitalist [facility] Telemedicine Encounter - Telemedicine Encounter Telemedicine Encounter: "The entirety of this encounter was performed via Telemedicine" This visit was performed using real-time audio and video connection between my location and thepatients locationwith the assistance of a surrogateat the patients location. Written or verbal consent was obtained from the patient/guardian to perform this visit using[facility] technology. Any patient questions regarding the telemedicine interaction were answered.
[2024-10-10 07:22] LABS: Slide Review 1 YES
[2024-10-10] MEDS: MERREM 500 MG in Sodium Chloride 100ML MINI-BAG PLUS 100 ML IV SCH (07:51)
--- NOTE | 2024-10-11 04:47 | PCM.NOTE ---
Date and Time: 10/11/24 0446 Subjective Assessment: is a 68 year old female with PMHX of chronic respiratory failure secondary to COPD on 5 L oxygen, congestive heart failure, diabetes mellitus, fibromyalgia, chronic lower extremity swelling/venous stasis and ulcers, chronic morbid obesity,and resident of custodial admitted 10/06/24 pneumonia and cellulitis of BLE. CXR showing new left mid to lower lung infiltrate/atelectasis/effusion and new right base infiltrate/atelectasis.Oxygen needs at baseline 5L. OP venous duplex done on 10/04 negative for DVT. Arterial duplex from 10/04 shows elevated velocity in the right profundus femoris artery suggesting high grade stenosis. Also elevated velocitites in the left common femoral artery and the left SFA which may represent 30-50% stenosis. Report on chart to review. Losartan increased to BID dosing as BP elevated in the evenings. Declines repeat at this time. Initial IP treatment with clinda mycin/levofloxacin/steroids/ bumex/metolazone. Wound cultures with MRSA, streptococcus sangiusI, and proteus mirabillis. IV abx changed to Merem and clindamycin with pt's multiple allergies. Plan for PICC placement today. Podiatry consulted -Unna boots applied with dressing changes with Iodine pain to the legs adaotic 4x4 unna boot kerlix and coban applied with moderate compression MWF at this time. 10/09/24: Met with patient bedside. Endorses increased wheezing, cough, and chest tightness. Lung sounds coarse with exp wheezing bilaterally on auscultation. Will repeat CXR and increase steroid today. Podiatry consulted and unna boots placed. Will continue abx. BP and blood glucose levels improved. 10/10/24: Met with patient bedside. Endorses improvement in dyspnea. Cough productive with white sputum. At baseline 5L oxygen. Discussed wound cultures and need for PICC placement for IV abx. Patient agreeable to plan. Objective Exam Wound Assessment: Skin/Wound Assessment Wound/Incision Assessment Start: 10/06/24 19:39 Text: Status: Active Freq: Q12H Protocol: Document 10/10/24 20:00 KX (Rec: 10/10/24 23:48 KX [id number]) Wound/Incision Assessment bilateral lower legs Wound Assessment Shift Assessment Wound Type CELLULITIS Wound Stage Non Pressure Wound Dressing Status Dry & Intact General Appearance Clean/Dry,Reddened Wound Bed Greatest Portion Red (Granulation) Comment DRESSING C/D/I. Changed daily by Dr Roberto Wound Photo Photo Taken No Objective Data Vital Signs: Vital Signs - 24 hr Temp Pulse Resp BP Pulse Ox 10/11/24 04:00 99.6 F 86 40 H 103/47 83 L 10/11/24 00:00 98.9 F 89 40 H 119/56 62 L 10/10/24 20:00 100.3 F 60 21 113/59 85 L 10/10/24 18:47 91 H 22 95 10/10/24 16:00 98.2 F 113 H 24 96/65 96 10/10/24 14:27 115 H 28 H 84 L 10/10/24 12:00 97.6 F 72 20 109/60 93 L 10/10/24 10:55 115 H 28 H 90 L 10/10/24 08:20 75 30 H 88 L 10/10/24 07:21 97.8 F 75 30 H 143/65 88 L Pain Assessment - Last Documented Pain Intensity 0 Pain Scale Used 0-10 Pain Scale Intake and Output: Intake & Output 10/08/24 10/09/24 10/10/24 10/11/24 11:59 11:59 11:59 11:59 Intake Total 2690 783 756 7753 Output Total 675 805 052 8744 Balance 2014 220 -207 160 Lab Results: Lab Results-Last 24 Hours 10/10/24 10/10/24 10/10/24 Range/Units 05:00 05:00 07:43 WBC 8.7 (3.98-10.04) x10^3/uL RBC 3.75 L (3.93-5.22) x10^6/uL Hgb 9.8 L (11.2-15.7) g/dL Hct 34.2 (34.1-44.9) % MCV 91.2 (79.4-94.8) fL MCH 26.1 (25.6-32.2) pg MCHC 28.7 L (32.2-35.5) g/dL RDW 17.2 H (11.7-14.4) % Plt Count 301 (182-369) x10^3/uL MPV 9.5 (9.4-12.3) fL Gran % 82.0 H (34.0-71.1) % Immature Gran % (Auto) 4.4 H (0.001-0.429) % Nucleat RBC Rel Count 0.2 (0.00-0.2) % Eos # (Auto) 0.01 L (0.04-0.36) x10^3/uL Immature Gran # (Auto) 0.38 H (0.001-0.031) x10^3u/L Absolute Lymphs (auto) 0.63 L (1.18-3.74) x10^3/uL Absolute Monos (auto) 0.52 (0.24-0.86) x10^3/uL Absolute Nucleated RBC 0.02 H (0.00-0.012) x10^3u/L Lymphocytes % 7.2 L (19.3-51.7) % Monocytes % 6.0 (4.7-12.5) % Eosinophils % 0.1 L (0.7-5.8) % Basophils % 0.3 (0.1-1.2) % Absolute Granulocytes 7.14 H (1.56-6.13) x10^3/uL Basophils # 0.03 (0.01-0.08) x10^3/uL Sodium 136 (135-145) mmol/L Potassium 4.0 (3.5-5.1) mmol/L Chloride 93 L (98-107) mmol/L Carbon Dioxide 36 H (22-30) mmol/L Anion Gap 11.4 (5-15) MEQ/L BUN 50 H (7-17) mg/dL Creatinine 1.04 (0.52-1.04) mg/dL Estimated GFR 58.5 ML/MIN Glucose 270 H (74-106) mg/dL POC Glucometer 205 H (74 to 106) mg/dL Calcium 8.5 (8.4-10.2) mg/dL Total Bilirubin 0.40 (0.2-1.3) mg/dL AST 30 (14-36) U/L ALT 25 (0-35) U/L Alkaline Phosphatase 57 (38-126) U/L Serum Total Protein 7.3 (6.3-8.2) g/dL Albumin 3.8 (3.5-5.0) g/dL Slides for Path Review YES 10/10/24 10/10/24 10/10/24 Range/Units 11:48 16:56 21:36 WBC (3.98-10.04) x10^3/uL RBC (3.93-5.22) x10^6/uL Hgb (11.2-15.7) g/dL Hct (34.1-44.9) % MCV (79.4-94.8) fL MCH (25.6-32.2) pg MCHC (32.2-35.5) g/dL RDW (11.7-14.4) % Plt Count (182-369) x10^3/uL MPV (9.4-12.3) fL Gran % (34.0-71.1) % Immature Gran % (Auto) (0.001-0.429) % Nucleat RBC Rel Count (0.00-0.2) % Eos # (Auto) (0.04-0.36) x10^3/uL Immature Gran # (Auto) (0.001-0.031) x10^3u/L Absolute Lymphs (auto) (1.18-3.74) x10^3/uL Absolute Monos (auto) (0.24-0.86) x10^3/uL Absolute Nucleated RBC (0.00-0.012) x10^3u/L Lymphocytes % (19.3-51.7) % Monocytes % (4.7-12.5) % Eosinophils % (0.7-5.8) % Basophils % (0.1-1.2) % Absolute Granulocytes (1.56-6.13) x10^3/uL Basophils # (0.01-0.08) x10^3/uL Sodium (135-145) mmol/L Potassium (3.5-5.1) mmol/L Chloride (98-107) mmol/L Carbon Dioxide (22-30) mmol/L Anion Gap (5-15) MEQ/L BUN (7-17) mg/dL Creatinine (0.52-1.04) mg/dL Estimated GFR ML/MIN Glucose (74-106) mg/dL POC Glucometer TNP 102 88 (74 to 106) mg/dL Calcium (8.4-10.2) mg/dL Total Bilirubin (0.2-1.3) mg/dL AST (14-36) U/L ALT (0-35) U/L Alkaline Phosphatase (38-126) U/L Serum Total Protein (6.3-8.2) g/dL Albumin (3.5-5.0) g/dL Slides for Path Review Radiology Exams: Radiology Procedures Category Date Time Status CHEST 1 VIEW (PORTABLE) Urgent Exams 10/09/24 11:27 Completed Multi-Disciplinary Progress Notes: Multi-Disciplinary Progress Notes 10/10/24 12:26 Case Management Note by Alicia Palacios S/W ADIS AT [facility]- SHE WAS NOTIFIED THAT THEY PLAN TO DC PATIENT BACK TO FACILITY TOMORROW. SHE WILL WILL NEED IV ANTIBIOTICS FOR 14 DAYS FROM 10/10/24. MED LIST AND MICRO FAXED TO [facility] SO THEY CAN ORDER HER ANTIBIOTICS Initialized on 10/10/24 12:26 - END OF NOTE 10/10/24 11:28 Case Management Note by Alicia Palacios Addendum entered by Alicia Palacios 10/10/24 11:53: S/W [facility] [employer]- PLAN OF CARE IS FOR PATIENT TO GET PICC LINE PLACED SO SHE CAN GET 14 DAYS OF CLINDAMYCIN AND MERREM ( START DATE ). PATIENT WILL NEED CURRENT DOSING AT [place] Original Note: NO CHANGE IN DC PLANS AT THIS TIME- PATIENT TO RETURN TO [facility]. Initialized on 10/10/24 11:28 - END OF NOTE Assessment/Plan (1) Pneumonia Current Visit: No Status: Acute Qualifiers: Assessment & Plan: - CXR 10/06/24 demonstrates new left mid to lower lung infiltrate/atelectasis/effusion and new right base infiltrate/atelectasis. -Continue prednisone, duonebs prn, advair, levaquin -on baseline 5L - supplemental oxygen as needed to maintain spo2 > 89% -WBC reviewed at 9.8<11.2<12.3 - WNL -CMP reviewed with CO2 elevated at 36<39- improving -Repeat CXR today -Increase prednisone to 30 bid -Duonebs 10/10/24: -Abx changed to clindamycin/Merrem -on baseline oxygen at 5L -Continue solumedrol -WBC reviewed and WNL at 8.7 Code(s): J18.9 - PNEUMONIA, UNSPECIFIED ORGANISM (2) COPD with exacerbation Current Visit: Yes Status: Acute Assessment & Plan: - Duonebs, Sterods, advair - on 5L NC - BL 5lNC O2 - CBC, CMP reviewed - BCx2 NGTD -RT following Code(s): J44.1 - CHRONIC OBSTRUCTIVE PULMONARY DISEASE W (ACUTE) EXACERBATION (3) Cellulitis of both lower extremities Current Visit: Yes Status: Acute Assessment & Plan: - podiatry consulted - reviewed documentation from 10/09/24 -agree with plan for unna boots and continuation of abx -dressing changes per podiatry - Iodine pain to the legs adaotic 4x4 unna boot kerlix and coban applied with moderate compression MWF at this time -barbara borders -elevate legs -Clindamycin/Levaquin - BC x2 NGTD - BL wound cultures pending - venous duplex- OP venous duplex done on 10/04 negative for DVT. Arterial duplex from 10/04 shows elevated velocity in the right profundus femoris artery suggesting high grade stenosis. Also elevated velocitites in the left common femoral artery and the left SFA which may represent 30-50% stenosis. Report on chart to review. - Prostat 64 10/10/24: -Wound cultures with MRSA, streptococcus sangiusI, and proteus mirabillis. IV abx changed to Merem and clindamycin with pt's multiple allergies - Plan for PICC placement today. -Podiatry following -Dressing changes as stated above Code(s): L03.115 - CELLULITIS OF RIGHT LOWER LIMB; L03.116 - CELLULITIS OF LEFT LOWER LIMB (4) Anemia Current Visit: Yes Status: Acute Assessment & Plan: - Iron labs reviewed with iron sat at 29% -Hgb reviewed at 9.8 - stable Code(s): D64.9 - ANEMIA, UNSPECIFIED (5) Morbid obesity Current Visit: Yes Status: Chronic Assessment & Plan: - advised ADA diet and exercise control Code(s): E66.01 - MORBID (SEVERE) OBESITY DUE TO EXCESS CALORIES (6) HTN (hypertension) Current Visit: No Status: Chronic Qualifiers: Assessment & Plan: -Losartan increased to BID dosing Code(s): I10 - ESSENTIAL (PRIMARY) HYPERTENSION (7) PVD (peripheral vascular disease) Current Visit: No Status: Chronic Assessment & Plan: -noted adds to complexity Code(s): I73.9 - PERIPHERAL VASCULAR DISEASE, UNSPECIFIED (8) Type 2 diabetes mellitus Current Visit: No Status: Chronic Qualifiers: Diabetes mellitus meterman insulin use: without skilled nursing use Assessment & Plan: - accuchecks ac/hs - humalog s/s, lantus - A1C 8.98- nutrition consult - Lantus changed to BID and Humalog added with meals -Blood glucose levels reviewed, improving- trend with adjustments as needed- nursing to inform if patient with > 200 blood glucose levels consistently (9) Unable to care for self Current Visit: No Status: Chronic Assessment & Plan: - lives at custodial Code(s): Z78.9 - OTHER SPECIFIED HEALTH STATUS (10) CHF (congestive heart failure) Current Visit: Yes Status: Acute Assessment & Plan: - Not in appear to be acute exacerbation - BNP 198 - Continue home meds VTE: Lovenox PPI: Protonix Next of KIN: [place] [phone] D/C plan: 2-3 days Code status: Full Code(s): J18.9 - PNEUMONIA, UNSPECIFIED ORGANISM (2) COPD with exacerbation Current Visit: Yes Status: Acute Code(s): J44.1 - CHRONIC OBSTRUCTIVE PULMONARY DISEASE W (ACUTE) EXACERBATION (3) Cellulitis of both lower extremities Current Visit: Yes Status: Acute Code(s): L03.115 - CELLULITIS OF RIGHT LOWER LIMB; L03.116 - CELLULITIS OF LEFT LOWER LIMB (4) Anemia Current Visit: Yes Status: Acute Code(s): D64.9 - ANEMIA, UNSPECIFIED (5) Morbid obesity Current Visit: Yes Status: Chronic Code(s): E66.01 - MORBID (SEVERE) OBESITY DUE TO EXCESS CALORIES (6) HTN (hypertension) Current Visit: No Status: Chronic Qualifiers: Code(s): I10 - ESSENTIAL (PRIMARY) HYPERTENSION (7) PVD (peripheral vascular disease) Current Visit: No Status: Chronic Code(s): I73.9 - PERIPHERAL VASCULAR DISEASE, UNSPECIFIED (8) Type 2 diabetes mellitus Current Visit: No Status: Chronic Qualifiers: Diabetes mellitus skilled nursing insulin use: without meterman use (9) Unable to care for self Current Visit: No Status: Chronic Code(s): Z78.9 - OTHER SPECIFIED HEALTH STATUS (10) CHF (congestive heart failure) Current Visit: Yes Status: Acute Code(s): I50.9 - HEART FAILURE, UNSPECIFIED
[2024-10-11 05:23] LABS: BASOPHIL % 0.3 % (0.1-1.2); Basophil (Absolute #) 0.02 x10^3/uL (0.01-0.08); Eosinophil (Absolute #) 0 x10^3/uL (0.04-0.36); Hematocrit 33.7 % (34.1-44.9); Hemoglobin 9.5 g/dL (11.2-15.7); IMMATURE GRAN # 0.24 x10^3u/L (0.001-0.031); IMMATURE GRAN % 3.1 % (0.001-0.429); Lymphocyte (Absolute #) 0.59 x10^3/uL (1.18-3.74); Lymphocytes % 7.6 % (19.3-51.7); Mean Cell Volume 92.3 fL (79.4-94.8); Mean Corpuscular Hgb Concent. 28.2 g/dL (32.2-35.5); Mean Platelet Volume 10.1 fL (9.4-12.3); Monocyte (Absolute #) 0.52 x10^3/uL (0.24-0.86); Monocytes % 6.7 % (4.7-12.5); Neutrophil % 82.3 % (34.0-71.1); Platelet Count 307 x10^3/uL (182-369); Red Blood Count 3.65 x10^6/uL (3.93-5.22); Red Cell Distribution Width 17.6 % (11.7-14.4); White Blood Count 7.8 x10^3/uL (3.98-10.04)
[2024-10-11 05:49] LABS: ALBUMIN 3.6 g/dL (3.5-5.0); ANION GAP 11.8 MEQ/L (5-15); BILIRUBIN,TOTAL 0.3 mg/dL (0.2-1.3); Calcium 7.9 mg/dL (8.4-10.2); Creatinine 1 1.3 mg/dL (0.52-1.04); EST GLOMERULAR FILTRATION RATE 44.8 ML/MIN; Potassium 4.1 mmol/L (3.5-5.1); Total Protein 6.9 g/dL (6.3-8.2)
[2024-10-11 07:10] LABS: Slide Review 1 YES
[2024-10-11 11:50] VITALS: BP 127/60; TEMP 97.6
--- NOTE | 2024-10-11 14:14 | PCM.DS ---
Discharge Summary Date of Admission: 10/07/24 13:36 Date of Discharge: 10/11/24 Admitting Physician: BERNIE BRYANT MD Consults: Consults on Case 10/07/24 07:29 Consult Podiatry ROUTINE 10/07/24 13:54 Nutritional Consult ROUTINE Primary Care Provider: DEB ESQUIVEL Allergies Allergies codeine Allergy (Intermediate, Verified 10/06/24 08:09) rash, itching cefaclor [From Ceclor] Allergy (Mild, Verified 10/06/24 08:09) Rash Penicillins Allergy (Mild, Verified 10/06/24 08:09) Swelling bacitracin [From Neosporin ([id number])] Adverse Reaction (Mild, Verified 10/06/24 08:09) Itching bacitracin zinc [From Neosporin ([id number])] Adverse Reaction (Mild, Verified 10/06/24 08:09) Itching levofloxacin [From Levaquin] Adverse Reaction (Mild, Verified 10/06/24 08:09) itch neomycin sulfate [From Neosporin ([id number])] Adverse Reaction (Mild, Verif ied 10/06/24 08:09) itch polymyxin B [From Neosporin ([id number])] Adverse Reaction (Mild, Verified 10/06/24 08:09) Itching Hospital Summary - Hospital Course Hospital Course: is a 68 year old female with PMHX of chronic respiratory failure secondary to COPD on 5 L oxygen, congestive heart failure, diabetes mellitus, fibromyalgia, chronic lower extremity swelling/venous stasis and ulcers, chronic morbid obesity,and resident of residential admitted 10/06/24 for pneumonia and cellulitis of BLE. CXR showing new left mid to lower lung infiltrate/atelectasis/effusion and new right base infiltrate/atelectasis.Oxygen needs at baseline 5L. Patient with oxygen saturations in the low 80's increased O2 to 6L. Reported that this is high as she can go on nc. RT offered Oxygen mask, pt refused, we discussed bipap. pt again said No. Very adamant about no using any type of mask. offered benzo to help keep calm while using mask. pt again refused. Discuss possibility of o2 sat declining, decreased LOC with hypoxia and increased CO2. pt stated she did not want intubated. Discussed code status - Patient requested code status be changed to SCO/DNR. Discussed Hospice- patient not interested at this time. Will think about it. Podiatry consulted OP venous duplex done on 10/04 negative for DVT. Arterial duplex from 10/04 shows elevated velocity in the right profundus femoris artery suggesting high grade stenosis. Also elevated velocitites in the left common femoral artery and the left SFA which may represent 30-50% stenosis. Report on chart to review. Losartan increased to BID dosing as BP elevated in the evenings. Initial IP treatment with clindamycin/levofloxacin/steroids/ bumex/metolazone. Wound cultures with MRSA, streptococcus sangiusI, and proteus mirabillis. IV abx changed to Merem and clindamycin with pt's multiple allergies. PICC placed. Podiatry consulted -Unna boots applied with dressing changes with Iodine pain to the legs adaotic 4x4 unna boot kerlix and coban applied with moderate compre ssion MWF at this time. They will follow patient as OP. She will continue clindamycin/Merem x 14 days. Discharge Note (1) Pneumonia Current Visit: No Status: Acute Qualifiers: Assessment & Plan: - CXR 10/06/24 demonstrates new left mid to lower lung infiltrate/atelectasis/effusion and new right base infiltrate/atelectasis. -Continue prednisone, duonebs prn, advair, levaquin -on baseline 5L - supplemental oxygen as needed to maintain spo2 > 89% -WBC reviewed at 9.8<11.2<12.3 - WNL -CMP reviewed with CO2 elevated at 36<39- improving -Repeat CXR today -Increase prednisone to 30 bid -Adityaonebs 10/10/24: -Abx changed to clindamycin/Merrem -on baseline oxygen at 5L -Continue solumedrol -WBC reviewed and WNL at 8.7 -PT refuses to increase oxygen above 6L Code(s): J18.9 - PNEUMONIA, UNSPECIFIED ORGANISM (2) COPD with exacerbation Current Visit: Yes Status: Acute Assessment & Plan: - Duonebs, Sterods, advair - on 5L NC - BL 5lNC O2 - CBC, CMP reviewed - BCx2 NGTD -RT following Code(s): J44.1 - CHRONIC OBSTRUCTIVE PULMONARY DISEASE W (ACUTE) EXACERBATION (3) Cellulitis of both lower extremities Current Visit: Yes Status: Acute Assessment & Plan: - podiatry consulted - reviewed documentation from 10/09/24 -agree with plan for unna boots and continuation of abx -dressing changes per podiatry - Iodine pain to the legs adaotic 4x4 unna boot kerlix and coban applied with moderate compression MWF at this time -barbara borders -elevate legs -Clindamycin/Levaquin - BC x2 NGTD - BL wound cultures pending - venous duplex- OP venous duplex done on 10/04 negative for DVT. Arterial duplex from 10/04 shows elevated velocity in the right profundus femoris artery suggesting high grade stenosis. Also elevated velocitites in the left common femoral artery and the left SFA which may represent 30-50% stenosis. Report on chart to review. - Prostat 64 10/10/24: -Wound cultures with MRSA, streptococcus sangiusI, and proteus mirabillis. IV abx changed to Merem and clindamycin with pt's multiple allergies - Plan for PICC placement today. -Podiatry following -Dressing changes as stated above Code(s): L03.115 - CELLULITIS OF RIGHT LOWER LIMB; L03.116 - CELLULITIS OF LEFT LOWER LIMB (4) Anemia Current Visit: Yes Status: Acute Assessment & Plan: - Iron labs reviewed with iron sat at 29% -Hgb reviewed at 9.8 - stable Code(s): D64.9 - ANEMIA, UNSPECIFIED (5) Morbid obesity Current Visit: Yes Status: Chronic Assessment & Plan: - advised ADA diet and exercise control Code(s): E66.01 - MORBID (SEVERE) OBESITY DUE TO EXCESS CALORIES (6) HTN (hypertension) Current Visit: No Status: Chronic Qualifiers: Assessment & Plan: -Losartan increased to BID dosing Code(s): I10 - ESSENTIAL (PRIMARY) HYPERTENSION (7) PVD (peripheral vascular disease) Current Visit: No Status: Chronic Assessment & Plan: -noted adds to complexity Code(s): I73.9 - PERIPHERAL VASCULAR DISEASE, UNSPECIFIED (8) Type 2 diabetes mellitus Current Visit: No Status: Chronic Qualifiers: Diabetes mellitus mcfp insulin use: without mcfp use Assessment & Plan: - accuchecks ac/hs - humalog s/s, lantus - A1C 8.98- nutrition consult - Lantus changed to BID and Humalog added with meals -Blood glucose levels reviewed, improving- trend with adjustments as needed- nursing to inform if patient with > 200 blood glucose levels consistently (9) Unable to care for self Current Visit: No Status: Chronic Assessment & Plan: - lives at residential Code(s): Z78.9 - OTHER SPECIFIED HEALTH STATUS (10) CHF (congestive heart failure) Current Visit: Yes Status: Acute Assessment & Plan: - Not in appear to be acute exacerbation - BNP 198 - Continue home meds I spent 35 minutes [id number] with the patient on the day of discharge performing discharge exam, discussing hospital stay and discharge instructions with patient and caregivers, preparation of discharge records, prescriptions & referral forms and addressing any questions/concerns the patient had as documented above. - Vitals & Intake/Output Vital Signs: Vital Signs Temperature 97.6 F 10/11/24 11:49 Pulse Rate 81 10/11/24 11:49 Respiratory Rate 30 H 10/11/24 11:49 Blood Pressure 127/60 10/11/24 11:49 O2 Sat by Pulse Oximetry 91 L 10/11/24 11:49 Intake & Output: Intake & Output 10/09/24 10/10/24 10/11/24 10/12/24 11:59 11:59 11:59 11:59 Intake Total 593 439 4486 120 Output Total 719 528 7791 Balance 220 -207 280 120 - Lab Result Diagrams: 10/11/24 05:12 10/11/24 05:12 Lab Results-Last 24 Hrs: Lab Results-Last 24 Hours 10/10/24 10/10/24 10/11/24 Range/Units 16:56 21:36 05:12 WBC 7.8 (3.98-10.04) x10^3/uL RBC 3.65 L (3.93-5.22) x10^6/uL Hgb 9.5 L (11.2-15.7) g/dL Hct 33.7 L (34.1-44.9) % MCV 92.3 (79.4-94.8) fL MCH 26.0 (25.6-32.2) pg MCHC 28.2 L (32.2-35.5) g/dL RDW 17.6 H (11.7-14.4) % Plt Count 307 (182-369) x10^3/uL MPV 10.1 (9.4-12.3) fL Gran % 82.3 H (34.0-71.1) % Immature Gran % (Auto) 3.1 H (0.001-0.429) % Nucleat RBC Rel Count 0.0 (0.00-0.2) % Eos # (Auto) 0 L (0.04-0.36) x10^3/uL Immature Gran # (Auto) 0.24 H (0.001-0.031) x10^3u/L Absolute Lymphs (auto) 0.59 L (1.18-3.74) x10^3/uL Absolute Monos (auto) 0.52 (0.24-0.86) x10^3/uL Absolute Nucleated RBC 0.00 (0.00-0.012) x10^3u/L Lymphocytes % 7.6 L (19.3-51.7) % Monocytes % 6.7 (4.7-12.5) % Eosinophils % 0.0 L (0.7-5.8) % Basophils % 0.3 (0.1-1.2) % Absolute Granulocytes 6.40 H (1.56-6.13) x10^3/uL Basophils # 0.02 (0.01-0.08) x10^3/uL Sodium (135-145) mmol/L Potassium (3.5-5.1) mmol/L Chloride (98-107) mmol/L Carbon Dioxide (22-30) mmol/L Anion Gap (5-15) MEQ/L BUN (7-17) mg/dL Creatinine (0.52-1.04) mg/dL Estimated GFR ML/MIN Glucose (74-106) mg/dL POC Glucometer 102 88 (74 to 106) mg/dL Calcium (8.4-10.2) mg/dL Total Bilirubin (0.2-1.3) mg/dL AST (14-36) U/L ALT (0-35) U/L Alkaline Phosphatase (38-126) U/L Serum Total Protein (6.3-8.2) g/dL Albumin (3.5-5.0) g/dL Slides for Path Review YES 10/11/24 10/11/24 10/11/24 Range/Units 05:12 07:30 11:34 WBC (3.98-10.04) x10^3/uL RBC (3.93-5.22) x10^6/uL Hgb (11.2-15.7) g/dL Hct (34.1-44.9) % MCV (79.4-94.8) fL MCH (25.6-32.2) pg MCHC (32.2-35.5) g/dL RDW (11.7-14.4) % Plt Count (182-369) x10^3/uL MPV (9.4-12.3) fL Gran % (34.0-71.1) % Immature Gran % (Auto) (0.001-0.429) % Nucleat RBC Rel Count (0.00-0.2) % Eos # (Auto) (0.04-0.36) x10^3/uL Immature Gran # (Auto) (0.001-0.031) x10^3u/L Absolute Lymphs (auto) (1.18-3.74) x10^3/uL Absolute Monos (auto) (0.24-0.86) x10^3/uL Absolute Nucleated RBC (0.00-0.012) x10^3u/L Lymphocytes % (19.3-51.7) % Monocytes % (4.7-12.5) % Eosinophils % (0.7-5.8) % Basophils % (0.1-1.2) % Absolute Granulocytes (1.56-6.13) x10^3/uL Basophils # (0.01-0.08) x10^3/uL Sodium 135 (135-145) mmol/L Potassium 4.1 (3.5-5.1) mmol/L Chloride 91 L (98-107) mmol/L Carbon Dioxide 37 H (22-30) mmol/L Anion Gap 11.8 (5-15) MEQ/L BUN 68 H (7-17) mg/dL Creatinine 1.30 H (0.52-1.04) mg/dL Estimated GFR 44.8 ML/MIN Glucose 227 H (74-106) mg/dL POC Glucometer 177 H 41 L* (74 to 106) mg/dL Calcium 7.9 L (8.4-10.2) mg/dL Total Bilirubin 0.30 (0.2-1.3) mg/dL AST 34 (14-36) U/L ALT 25 (0-35) U/L Alkaline Phosphatase 51 (38-126) U/L Serum Total Protein 6.9 (6.3-8.2) g/dL Albumin 3.6 (3.5-5.0) g/dL Slides for Path Review 10/11/24 Range/Units 12:52 WBC (3.98-10.04) x10^3/uL RBC (3.93-5.22) x10^6/uL Hgb (11.2-15.7) g/dL Hct (34.1-44.9) % MCV (79.4-94.8) fL MCH (25.6-32.2) pg MCHC (32.2-35.5) g/dL RDW (11.7-14.4) % Plt Count (182-369) x10^3/uL MPV (9.4-12.3) fL Gran % (34.0-71.1) % Immature Gran % (Auto) (0.001-0.429) % Nucleat RBC Rel Count (0.00-0.2) % Eos # (Auto) (0.04-0.36) x10^3/uL Immature Gran # (Auto) (0.001-0.031) x10^3u/L Absolute Lymphs (auto) (1.18-3.74) x10^3/uL Absolute Monos (auto) (0.24-0.86) x10^3/uL Absolute Nucleated RBC (0.00-0.012) x10^3u/L Lymphocytes % (19.3-51.7) % Monocytes % (4.7-12.5) % Eosinophils % (0.7-5.8) % Basophils % (0.1-1.2) % Absolute Granulocytes (1.56-6.13) x10^3/uL Basophils # (0.01-0.08) x10^3/uL Sodium (135-145) mmol/L Potassium (3.5-5.1) mmol/L Chloride (98-107) mmol/L Carbon Dioxide (22-30) mmol/L Anion Gap (5-15) MEQ/L BUN (7-17) mg/dL Creatinine (0.52-1.04) mg/dL Estimated GFR ML/MIN Glucose (74-106) mg/dL POC Glucometer 95 (74 to 106) mg/dL Calcium (8.4-10.2) mg/dL Total Bilirubin (0.2-1.3) mg/dL AST (14-36) U/L ALT (0-35) U/L Alkaline Phosphatase (38-126) U/L Serum Total Protein (6.3-8.2) g/dL Albumin (3.5-5.0) g/dL Slides for Path Review Micro Results-Entire Visit: Microbiology 10/07/24 12:30 Wound Culture - Preliminary Leg - Left Lower SENT TO REFERENCE LAB FOR IDENTIFICATION AND/OR SENSITIVITY. SEPARATE REPORT TO FOLLOW. 10/06/24 02:35 Blood Culture - Final Blood 10/06/24 02:35 Blood Culture - Final Blood 10/07/24 12:30 Wound Culture - Final Leg - Right Anterior Streptococcus Sangius I Proteus Mirabilis 10/07/24 12:30 Wound Culture - Final Leg - Right Lower Methicillin Resist Staph Aur Accuchecks Date 10/11/24 Date 10/11/24 Date 10/10/24 Date 10/10/24 Time 11:49 Time 07:41 Time 22:00 Time 17:26 - Radiology Exams Ordered Rad Exams-Entire Visit: Radiology Procedures Category Date Time Status CHEST 1 VIEW (PORTABLE) Stat Exams 10/11/24 13:45 Ordered - Procedures and Test Procedures and Tests throughout Hospitalization: Therapy Orders & Screens 10/06/24 07:58 Oxygen Nasal Cannula 5 lpm Comment: Respiratory Therapy Consult DAILY Comment: Reason For Exam: 10/07/24 19:22 Respiratory Therapy Assessment DAILY Comment: Diagnosis: pneumonia, celluliitis Discharge Exam General Appearance: no apparent distress Neurologic Exam: alert, 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, cooperative Eye Exam: PERRL Ears, Nose, Throat Exam: normal ENT inspection Neck Exam: normal inspection Respiratory Exam: diminished breath sounds Cardiovascular Exam: regular rate/rhythm, normal heart sounds Gastrointestinal/Abdomen Exam: soft, normal bowel sounds Pelvic Exam: deferred Rectal Exam: deferred Back Exam: normal inspection Extremity Exam: other (BLE unna boots) Skin Exam: normal color Wound Assessment: Skin/Wound Assessment Wound/Incision Assessment Start: 10/06/24 19:39 Text: Status: Active Freq: Q12H Protocol: Document 10/11/24 08:00 KATLYN (Rec: 10/11/24 08:42 KATLYN [id number]) Wound/Incision Assessment bilateral lower legs Wound Assessment Shift Assessment Wound Type CELLULITIS Wound Stage Non Pressure Wound Dressing Status Dry & Intact Comment UNNA BOOT IN PLACE Final Diagnosis/Problem List - Final Discharge Diagnosis/Problem (1) Pneumonia Current Visit: No Status: Acute Code(s): J18.9 - PNEUMONIA, UNSPECIFIED ORGANISM (2) COPD with exacerbation Current Visit: Yes Status: Acute Code(s): J44.1 - CHRONIC OBSTRUCTIVE PULMONARY DISEASE W (ACUTE) EXACERBATION (3) Cellulitis of both lower extremities Current Visit: Yes Status: Acute Code(s): L03.115 - CELLULITIS OF RIGHT LOWER LIMB; L03.116 - CELLULITIS OF LEFT LOWER LIMB (4) Anemia Current Visit: Yes Status: Chronic Code(s): D64.9 - ANEMIA, UNSPECIFIED (5) Morbid obesity Current Visit: Yes Status: Chronic Code(s): E66.01 - MORBID (SEVERE) OBESITY DUE TO EXCESS CALORIES (6) HTN (hypertension) Current Visit: No Status: Chronic Code(s): I10 - ESSENTIAL (PRIMARY) HYPERTENSION (7) PVD (peripheral vascular disease) Current Visit: No Status: Chronic Code(s): I73.9 - PERIPHERAL VASCULAR DISEASE, UNSPECIFIED (8) Type 2 diabetes mellitus Current Visit: No Status: Chronic Priority: High (9) Unable to care for self Current Visit: No Status: Chronic Code(s): Z78.9 - OTHER SPECIFIED HEALTH STATUS (10) CHF (congestive heart failure) Current Visit: Yes Status: Chronic Code(s): I50.9 - HEART FAILURE, UNSPECIFIED - Discharge Discharge Date: 10/11/24 Disposition: DC TO ANY "OTHER" HALF-WAY Condition: Fair Prescriptions: New Clindamycin 600 mg/D5w 50 ml [Clindamycin-D5w 600 mg/50 ml] 600 mg IV Q8HT #39 iv piggy Meropenem [Merrem] 500 mg IV Q8H #39 iv piggy Losartan Potassium 50 mg [Cozaar 50 MG] 25 mg PO BID tablet Albuterol/Ipratropium 3ml Neb* [DUONEB 0.5-3 MG/3 ml Neb] 3 ml IH QIDRT Methylprednisolone Packet [Medrol Dosepack] 4 mg PO UD #1 packet Pantoprazole 20 mg [Protonix 20MG Tablet] 20 mg PO DAILY tablet Albuterol 2.5 mg/3 ml Neb [Proventil 2.5 mg/3 ml Neb] 2.5 mg IH Q2H PRN PRN PRN Reason: Shortness Of Breath/Wheezing Continue Ropinirole HCl 3 mg PO QID Glimepiride 1 mg PO DAILY Bumetanide 2 mg PO DAILY Atorvastatin Calcium [Lipitor] 20 mg PO HS Metformin HCl [Metformin HCl ER] 500 mg PO DAILY Nystatin Powder 15 gm [Nystop Powder 15 gm] 1 gm TP BID 10 Days #15 misc Nitroglycerin 0.4 mg Tablet [Nitrostat 0.4 MG Tablet] 0.4 mg SL UD PRN PRN Reason: Chest Pain Metolazone 2.5 mg [Zaroxolyn 2.5 MG] 1 tab PO DAILY Loratadine 10 mg [Claritin 10 mg] 10 mg PO DAILY Insulin Lispro [Humalog Kwikpen U-100] See Rx Instructions .ROUTE .COMPLEX Insulin Glargine,Hum.rec.anlog [Lantus] 40 unit SQ HS Fluticasone/Umeclidin/Vilanter [Trelegy Ellipta 100-62.5-25] 1 puff IH DAILY Dextran 70/Hypromellose [Artificial Tears] 1 each OP TID Cranberry Fruit Concentrate [Cranberry] 300 mg PO DAILY Cholecalciferol (Vitamin D3) [Vitamin D3] 10 mcg PO DAILY Albuterol 2.5 mg/3 ml Neb [Proventil 2.5 mg/3 ml Neb] 1 vial IH Q4H PRN PRN Reason: Shortness Of Breath/Wheezing Mineral Oil/Pet Hy-Phl 50 gm [Aquaphor Ointment 50 gm] 1 gm EXT BID Acetaminophen 325 mg [Tylenol 325 mg] 650 mg PO Q6H PRN PRN Reason: Pain Discontinued Losartan Potassium [Cozaar] 25 mg PO DAILY Additional Instructions: HALF-WAY ORDERS: RESUME PREVIOUS ORDERS ROUTINE PICC LINE CARE SEE RX FOR IV MERREM AND CLINDAMYCIN FOR 14 DAYS FROM 10/10/24 Pt needs dressing changes to bilateral lower legs by [facility] facility every other day. Apply iodine to bilateral lower legs. Apply adaptic and sterile 4x4 gauze to any open areas. Apply unna boot, fan-folded, to level of tibial tuberosity. Wrap with kerlix to same level. Wrap with coban with moderate (50%) compression to same level. SEE ATTACHED MED LIST Follow up with: LULA BUTLER DPM [ACTIVE STAFF] - 10/19/24 10:00 am
--- NOTE | 2024-10-11 14:23 | XRAY ---
Indication: PICC line placement. Comparison: October 09, 2024 Portable chest demonstrates new left arm PICC line with tip projecting over atriocaval junction. Stable moderate left base infiltrate/atelectasis/effusion. Right lung clear. Heart not enlarged. No new cardiopulmonary abnormalities.
[2024-10-11 15:12] VITALS: PULSE 93; RESP 18; O2SAT 78
== END 2024-10-11 15:35 | DRG 194 ==
LOC: ED 02:07 → MED SURG 07:18 → OBSVTOIN 10-07 13:36
PROVIDERS: ADMIT Internal Medicine; ATTEND Internal Medicine
PROC: 2W1MX6Z Compression of Left Lower Extremity using Pressure Dressing (ICD-10-PCS; principal; 2024-10-09)
PROC: 2W1LX6Z Compression of Right Lower Extremity using Pressure Dressing (ICD-10-PCS; 2024-10-09)
DX: J18.9 Pneumonia, unspecified organism (principal); J44.1 Chronic obstructive pulmonary disease with (acute) exacerbation; L03.115 Cellulitis of right lower limb; L03.116 Cellulitis of left lower limb; D64.9 Anemia, unspecified; E66.01 Morbid (severe) obesity due to excess calories; E11.621 Type 2 diabetes mellitus with foot ulcer; I11.0 Hypertensive heart disease with heart failure; I50.9 Heart failure, unspecified; E11.21 Type 2 diabetes mellitus with diabetic nephropathy; I73.9 Peripheral vascular disease, unspecified; F17.200 Nicotine dependence, unspecified, uncomplicated; R53.81 Other malaise; Z79.899 Other long term (current) drug therapy; Z74.1 Need for assistance with personal care; Z99.81 Dependence on supplemental oxygen
CPT/HCPCS: 0241U; 29580; 36415; 71045; 80053; 82607; 82728; 82746; 82947; 83036; 83540; 83550; 83605; 83735; 83880; 84145; 84484; 85025; 85027; 87040; 87070; 87077; 87186; 93005; 93041; 93268; 94640; 94760; 94762; 96365; 96374; 96375; 99223; 99285; G0378; Q3014; 99284; J1650; J1817; J1956; J2919; J7609; A9270-GY